=== PATIENT | male | born 1980 | race Hispanic/Latino ===

== ENCOUNTER 2020-02-27 16:09 | Emergency (ER) | payer OTHER, SELFPAY ==
--- OUTSIDE RECORDS SUMMARY | 2020-02-27 16:11 | XMS REPORT | Summary of Care ---
:1980 Author Organization [facility] Address [address] [place] [address] Care Team Providers Name Role Phone Mya Morgan MD Primary Care Provider Reason for Visit Reason Comments Exposure Encounter Details Date Type Department Care Team Description 01/28/2020 Laboratory Only [facility] Family Ernesto Madrigal, TAILER OFF [address] [place] [address] [address] Suspected Covid-19 Medicine - [facility], Adc Fam Pob I Virus Infection [address] [place] [address] (Primary D [place]) [place] [address] Allergies No Known Allergiesdocumented as of this encounter (statuses as of 02/01/2020) Medications Medication Sig Dispensed Refills Start Date End Date Status meloxicam 7.5 mg Take 1 tablet by 60 tablet 3 11/17/2019 Active tabletIndications: Acute mouth 2 (two) non intractable times daily as tension-type headache needed (headache). atorvastatin 10 mg Take 1 tablet by 90 tablet 1 11/17/2019 Active tabletIndications: Mixed mouth at hyperlipidemia bedtime. documented as of this encounter (statuses as of 02/01/2020) Active Problems Problem Noted Date Left thigh pain 04/02/2019 DDD (degenerative disc disease), lumbar 04/02/2019 Arthritis of lumbar spine 04/02/2019 Elevated hemoglobin 09/25/2018 Varicocele 11/30/2017 Depression 11/11/2017 Obesity (BMI 30-39.9) 11/21/2016 Hepatosplenomegaly 11/09/2016 Abnormal LFTs 11/09/2016 Anxiety disorder 11/06/2016 Hypercholesterolemia 11/06/2016 documented as of this encounter (statuses as of 02/01/2020) Resolved Problems Problem Noted Date Resolved Date Perineal pain in male 11/11/2017 04/02/2019 Scrotal pain 11/11/2017 04/02/2019 Left wrist pain 06/22/2017 04/02/2019 documented as of this encounter (statuses as of 02/01/2020) Social History Tobacco Use Types Packs/Day Years Used Date Never Smoker Smokeless Tobacco: Never Used Alcohol Use Drinks/Week oz/Week Comments Yes socially Sex Assigned at Date Recorded Not on file Job Start Date Occupation Industry Not on file Not on file Not on file Travel History Travel Start Travel End No recent travel history available. COVID-19 Exposure Response Date Recorded In the last month, have you been in contact with Yes 01/28/2020 7:57 AM CDT someone who was confirmed or suspected to have Coronavirus / COVID-19? documented as of this encounter Last Filed Vital Signs Not on filedocumented in this encounter Plan of Treatment Health Maintenance Due Date Last Done Comments PNEUMOCOCCAL 0-64 YEARS COMBINED 1984 SERIES (1 of 3 - PCV13) DTaP,Tdap,and Td Vaccines (1 - 1989 Tdap) Depression Screening 03/14/2020 03/14/2019 INFLUENZA VACCINE (#1) 2020 06/05/2016, 06/05/2016, 04/24/2015, Additional history exists documented as of this encounter Results Not on filedocumented in this encounter Visit Diagnoses Diagnosis Suspected Covid-19 Virus Infection - [facility] documented in this encounter Insurance Payer Benefit Plan / Subscriber ID Effective Dates Phone Addre ss Type Group [facility] [id number] [facility] PPO t S documented as of this encounter
--- OUTSIDE RECORDS SUMMARY | 2020-02-27 16:11 | XMS REPORT | Summary of Care ---
:1980 Author Organization [facility] Address [address] [place] [address] Care Team Providers Name Role Phone Mya Morgan MD Primary Care Provider Reason for Visit Reason Comments Results Encounter Details Date Type Department Care Team Description 02/02/2020 Telephone [facility] Family Medicine Jennifer Ortiz FNP Results - [address] [place] [address] [place] [phone] Allergies No Known Allergiesdocumented as of this encounter (statuses as of 02/02/2020) Medications Medication Sig Dispensed Refills Start Date End Date Status meloxicam 7.5 mg Take 1 tablet by 60 tablet 3 11/17/2019 Active tabletIndications: Acute mouth 2 (two) non intractable times daily as tension-type headache needed (headache). atorvastatin 10 mg Take 1 tablet by 90 tablet 1 11/17/2019 Active tabletIndications: Mixed mouth at hyperlipidemia bedtime. documented as of this encounter (statuses as of 02/02/2020) Active Problems Problem Noted Date Left thigh pain 04/02/2019 DDD (degenerative disc disease), lumbar 04/02/2019 Arthritis of lumbar spine 04/02/2019 Elevated hemoglobin 09/25/2018 Varicocele 11/30/2017 Depression 11/11/2017 Obesity (BMI 30-39.9) 11/21/2016 Hepatosplenomegaly 11/09/2016 Abnormal LFTs 11/09/2016 Anxiety disorder 11/06/2016 Hypercholesterolemia 11/06/2016 documented as of this encounter (statuses as of 02/02/2020) Resolved Problems Problem Noted Date Resolved Date Perineal pain in male 11/11/2017 04/02/2019 Scrotal pain 11/11/2017 04/02/2019 Left wrist pain 06/22/2017 04/02/2019 documented as of this encounter (statuses as of 02/02/2020) Social History Tobacco Use Types Packs/Day Years [...] Results Not on filedocumented in this encounter Additional Health Concerns Infection Onset Date Last Indicated Resolved Time COVID-19 Rule Out 02/01/2020 02/01/2020 02/02/2020 1: 01 PM CDT documented as of this encounter Insurance Payer Benefit Plan / Subscriber ID Effective Dates Phone Addre ss Type Group [facility] [id number] 2016-Pres HMO/ PPO/[facility] PPO t S documented as of this encounter
--- OUTSIDE RECORDS SUMMARY | 2020-02-27 16:11 | XMS REPORT | Continuity of Care Document ---
:1980 Author Organization [facility] t Address [address] [place] [address] Care Team Providers Name Role Phone Jennifer Phillips Attending Clinician Lab, [facility] Fam Pob I Attending Clinician Unavailable Problems This patient has no known problems. Allergies, Adverse Reactions, Alerts This patient has no known allergies or adverse reactions. Medications This patient has no known medications. Procedures This patient has no known procedures. Encounters Start End Encounter Admission Attending Care Care Encounter Source Date/Time Date/Time Type Type Clinicians Facility Department ID 2020-02-02 2020-02-02 Telephone Rohan NEADILSON [id number] 00:00:00 00:00:00 [facility] [id number] [place] [id number] Professio [phone] nal [address] 2020-02-01 2020-02-01 Laboratory Lab, [facility] [id number] 12:53:49 15:29:04 Only Fam Pob I Health [id number] [place] [id number] Professio [phone] nal [phone] Results This patient has no known results.
--- OUTSIDE RECORDS SUMMARY | 2020-02-27 16:11 | XMS REPORT | Summary of Care ---
:1980 Author Organization [facility] Address [address] [place] [address] Care Team Providers Name Role Phone Mya Morgan MD Primary Care Provider Encounter Details Date Type Department Care Team Description 02/01/2020 Letter (Out) [facility] Family Medicine - Lab, Pcp Co adán [place] [address] [place] [address] [place] [address] Allergies No Known Allergiesdocumented as of this [...] filedocumented in this encounter Plan of Treatment Date Type Specialty Care Team Description 02/01/2020 Laboratory Only Family Medicine Noel Pruitt, BARREL AND RECEIVER ALIGNER [address] [place] [address] [phone] Arrived Lab, Adc Fam Pob I Health Maintenance Due Date Last Done Comments PNEUMOCOCCAL 0-64 YEARS COMBINED 1984 SERIES (1 of 3 - PCV13) DTaP,Tdap,and Td Vaccines (1 - 1989 Tdap) Depression Screening 03/14/2020 03/14/2019 INFLUENZA VACCINE (#1) 2020 06/05/2016, 06/05/2016, 04/24/2015, Additional history exists documented as of this encounter Results Not on filedocumented in this encounter Insurance Payer Benefit Plan / Subscriber ID Effective Dates Phone Addre ss Type Group [facility] [id number] 2016-Presen HMO/ PPO/PO [facility]ALTH[employer]ARE HEALTHCARE PPO t S documented as of this encounter
--- OUTSIDE RECORDS SUMMARY | 2020-02-27 16:11 | XMS REPORT | Summary of Care ---
:1980 Author Organization [facility] Address [address] [place] [address] Care Team Providers Name Role Phone Mya Morgan MD Primary Care Provider Reason for Visit Reason Comments Exposure Encounter Details Date Type Department Care Team Description 02/01/2020 Laboratory Only [facility] Family AcyoelSherley, FURNACE KEEPER [address] [place] [address] [phone] Suspected Covid-19 Medicine - [facility], Adc Fam Pob I Virus Infection [address] [place] [address] (Primary D x) [place] [address] Allergies No Known Allergiesdocumented as [...] filedocumented in this encounter Plan of Treatment Name Type Priority Associated Diagnoses Order S chedule COVID-19 (PCR MOLECULAR LAB Routine Suspected Covid-1 9 Virus Expected: 02/01/2020, TESTING) Infection Expires: 2020 Health Maintenance Due Date Last Done Comments PNEUMOCOCCAL 0-64 YEARS COMBINED 1984 SERIES (1 of 3 - PCV13) DTaP,Tdap,and Td Vaccines (1 - 1989 Tdap) Depression Screening 03/14/2020 03/14/2019 INFLUENZA VACCINE (#1) 2020 06/05/2016, 06/05/2016, 04/24/2015, Additional history exists documented as of this encounter Results Not on filedocumented in this encounter Visit Diagnoses Diagnosis Suspected Covid-19 Virus Infection - [facility] documented in this encounter Insurance Payer Benefit Plan / Subscriber ID Effective Dates Phone Addre ss Type Group [facility] [id number] 2016-Pres HMO/ PPO/[facility] PPO t S documented as of this encounter
--- OUTSIDE RECORDS SUMMARY | 2020-02-27 16:11 | XMS REPORT | Summary of Care ---
:1980 Author Organization [facility] Address [address] [place] [address] Care Team Providers Name Role Phone Mya Morgan MD Primary Care Provider Reason for Visit Reason Comments Exposure Encounter Details Date Type Department Care Team Description 02/01/2020 Laboratory Only [facility] Family AcyoelSherley, FAMILY COURT COUNSELLOR [address] [place] [address] [phone] Suspected Covid-19 Medicine - [place] [facility], Adc Fam Pob I Virus Infection [address] [place] [address] (Primary D x) [place] [address] Allergies No Known Allergiesdocumented as [...] of Treatment Name Type Priority Associated Diagnoses Date/Ti me COVID-19 (PCR MOLECULAR LAB Routine Suspected Covid-1 9 Virus 02/01/2020 1:18 PM CDT TESTING) Infection Name Type Priority Associated Diagnoses Order S [...] - Yohana al documented in this encounter Additional Health Concerns Infection Onset Date Last Indicated Resolved Time COVID-19 Rule Out 02/01/2020 02/01/2020 documented as of this encounter Insurance Payer Benefit Plan / Subscriber ID Effective Dates Phone Addre ss Type Group [facility] [id number] 2016-[employer] HMO/ PPO/[facility] PPO t S documented as of this encounter
--- OUTSIDE RECORDS SUMMARY | 2020-02-27 16:11 | XMS REPORT | Summary of Care ---
:1980 Author Organization [facility] Address [address] [place] [address] Care Team Providers Name Role Phone Mya Morgan MD Primary Care Provider Encounter Details Date Type Department Care Team Description 02/01/2020 Letter (Out) [facility] Family Medicine - Lab, Pcp Co adán [place]anger [address] [place] [address] [place] [address] Allergies No Known Allergiesdocumented as of [...] 02/01/2020 Laboratory Only Family Medicine Noel Pruitt, SPRINKLING SYSTEM IRRIGATOR [address] [place] [address] [phone] Arrived Lab, Adc Fam Pob I Health [...] Effective Dates Phone Addre ss Type Group [facility] [id number] 2016-Presen HMO/ PPO/PO HEALTHCARE HEALTHCARE PPO t S documented as of this encounter
--- OUTSIDE RECORDS SUMMARY | 2020-02-27 16:11 | XMS REPORT | Summary of Care ---
:1980 Author Organization [facility] Address [address] [place] [address] Care Team Providers Name Role Phone Mya Morgan MD Primary Care Provider Reason for Visit Reason Comments Exposure Encounter Details Date Type Department Care Team Description 02/01/2020 Laboratory Only [facility] Family AcyoelSherley, DETECTIVE [address] [place] [address] [phone] Suspected Covid-19 Medicine - [place] [facility], Adc Fam Pob I Virus Infection [address] [place] [address] (Primary D x) [place] [address] Allergies No Known Allergiesdocumented as [...] Effective Dates Phone Addre ss Type Group [facility] [id number] 2016-[employer] HMO/ PPO/[facility] PPO t S documented as of this encounter
--- OUTSIDE RECORDS SUMMARY | 2020-02-27 16:11 | XMS REPORT | Summary of Care ---
:1980 Author Organization [facility] Address [address] [place] [address] Care Team Providers Name Role Phone Mya Morgan MD Primary Care Provider Reason for Visit Reason Comments Exposure Encounter Details Date Type Department Care Team Description 01/28/2020 Laboratory Only [facility] Family Ernesto Madrigal, PART MAKER [address] [place] [address] [address] Suspected Covid-19 Medicine - [place] [facility], Adc Fam Pob I Virus Infection [address] [place] [address] (Primary D x) [place] [address] Allergies No Known Allergiesdocumented as of this encounter (statuses as of 01/28/2020) Medications Medication Sig Dispensed Refills Start Date End Date Status meloxicam 7.5 mg Take 1 tablet by 60 tablet 3 11/17/2019 Active tabletIndications: Acute mouth 2 (two) non intractable times daily as tension-type headache needed (headache). atorvastatin 10 mg Take 1 tablet by 90 tablet 1 11/17/2019 Active tabletIndications: Mixed mouth at hyperlipidemia bedtime. documented as of this encounter (statuses as of 01/28/2020) Active Problems Problem Noted Date Left thigh pain 04/02/2019 DDD (degenerative disc disease), lumbar 04/02/2019 Arthritis of lumbar spine 04/02/2019 Elevated hemoglobin 09/25/2018 Varicocele 11/30/2017 Depression 11/11/2017 Obesity (BMI 30-39.9) 11/21/2016 Hepatosplenomegaly 11/09/2016 Abnormal LFTs 11/09/2016 Anxiety disorder 11/06/2016 Hypercholesterolemia 11/06/2016 documented as of this encounter (statuses as of 01/28/2020) Resolved Problems Problem Noted Date Resolved Date Perineal pain in male 11/11/2017 04/02/2019 Scrotal pain 11/11/2017 04/02/2019 Left wrist pain 06/22/2017 04/02/2019 documented as of this encounter (statuses as of 01/28/2020) Social History Tobacco Use Types Packs/Day Years [...] MOLECULAR LAB Routine Suspected Covid-1 9 Virus Ordered: 01/28/2020 TESTING) Infection Health Maintenance Due Date Last Done Comments PNEUMOCOCCAL 0-64 YEARS COMBINED 1984 SERIES (1 of 3 - PCV13) DTaP,Tdap,and Td Vaccines (1 - 1989 Tdap) Depression Screening 03/14/2020 03/14/2019 INFLUENZA VACCINE (#1) 2020 06/05/2016, 06/05/2016, 04/24/2015, Additional history exists documented as of this encounter Results Not on filedocumented in this encounter Visit Diagnoses Diagnosis Suspected Covid-19 Virus Infection - [facility] documented in this encounter Insurance Payer Benefit Plan / Subscriber ID Effective Dates Phone Addre ss Type Group [facility] [id number] 2016-[employer] HMO/ PPO/ HEALTHCARE HEALTHCARE PPO t S documented as of this encounter
[2020-02-27] MEDS ORDERED: TETANUS & DIPHTHERIA TOX,ADULT 0.5 ML VIAL ONE (16:48)
--- NOTE | 2020-02-27 17:37 | ER ---
Nurse's Notes [facility] Name: Sumit Roberson Age: 39 yrs Sex: Male : 1980 Arrival Date: 02/27/2020 Time: 16:11 Bed 14 Private MD: Diagnosis: Laceration without foreign body of scalp Presentation: 02/26 16:12 Chief complaint: EMS states: "the pt was at work and was climbing back into his van jd3 when he hit the top of his head on the latch at the top of the vehicle. bleeding controlled with pressure. denies LOC.". Coronavirus screen: At this time, the client does not indicate any symptoms associated with coronavirus-19. Ebola Screen: Patient negative for fever greater than or equal to 101.5 degrees Fahrenheit, and additional compatible Ebola Virus Disease symptoms. Initial Sepsis Screen: Does the patient meet any 2 criteria? No. Patient's initial sepsis screen is negative. Does the patient have a suspected source of infection? No. Patient's initial sepsis screen is negative. Risk Assessment: Do you want to hurt yourself or someone else? Patient reports no desire to harm self or others. Onset of symptoms was February 27, 2020. 16:12 Method Of Arrival: EMS: [facility] jd3 16:12 Acuity: ISABEL 3 jd3 Historical: - Allergies: 16:14 No Known Allergies; jd3 - Home Meds: 16:14 atorvastatin oral oral [Active]; jd3 - PMHx: 16:14 High Cholesterol; jd3 - PSHx: 16:14 Carpal Tunnel Repair; jd3 - Immunization history:: Adult Immunizations up to date, Last tetanus immunization: unknown. - Social history:: Smoking status: Patient denies any tobacco usage or history of. Screenin:17 Abuse screen: Denies threats or abuse. Nutritional screening: No deficits noted. jd3 Tuberculosis screening: No symptoms or risk factors identified. Fall Risk Ambulatory Aid- None/Bed Rest/Nurse Assist (0 pts). Gait- Normal/Bed Rest/Wheelchair (0 pts) Mental Status- Oriented to own ability (0 pts). Total Sandhu Fall Scale indicates No Risk (0-24 pts). Assessment: 16:15 General: Appears in no apparent distress. uncomfortable, Behavior is calm, cooperative, jd3 appropriate for age. Pain: Complains of pain in head Quality of pain is described as burning, tender. Neuro: Level of Consciousness is awake, alert, obeys commands, Oriented to person, place, time, situation, Denies dizziness. Cardiovascular: Denies chest pain, Capillary refill < 3 seconds Patient's skin is warm and dry. Respiratory: Airway is patent Respiratory effort is even, unlabored, Respiratory pattern is regular, symmetrical, Denies cough, shortness of breath. GI: No signs and/or symptoms were reported involving the gastrointestinal system. Patient currently denies constipation, diarrhea, nausea, vomiting. : No signs and/or symptoms were reported regarding the genitourinary system. EENT: No signs and/or symptoms were reported regarding the EENT system. Derm: Skin is intact, Skin is dry, Skin is normal, Skin temperature is warm. Musculoskeletal: Circulation, motion, and sensation intact. Range of motion: intact in all extremities. Injury Description: Laceration sustained to top of head is not bleeding. 17:55 Reassessment: Patient appears in no apparent distress at this time. Patient and/or jd3 family updated on plan of care and expected duration. Pain level reassessed. Patient is alert, oriented x 3, equal unlabored respirations, skin warm/dry/pink. Patient states feeling better. Vital Signs: 16:14 BP 146 / 85; Pulse 97; Resp 16 S; Temp 98.8(O); Pulse Ox 99% on R/A; Weight 124.74 kg jd3 (R); Height 5 ft. 9 in. (175.26 cm) (R); Pain 4/10; 17:55 BP 141 / 88; Pulse 88; Resp 16 S; Pulse Ox 100% on R/A; jd3 16:14 Body Mass Index 40.61 (124.74 kg, 175.26 cm) [facility] ED Course: 16:11 Patient arrived in ED. jd3 16:13 Fabio Anderson NP is PHCP. pm1 16:13 Cm Roach MD is Attending Physician. pm1 16:13 Triage completed. jd3 16:15 Arm band placed on. jd3 16:17 Patient has correct armband on for positive identification. Bed in low position. Call [facility] light in reach. Side rails up X 1. Pulse ox on. NIBP on. 16:30 Wound care: to laceration located on face and scalp and head was cleaned with jp3 Hibiclens, irrigated with normal saline, Patient tolerated well. 16:34 Wayne Clark RN is Primary Nurse. jd3 17:55 No provider procedures requiring assistance completed. Patient did not have IV access jd3 during this emergency room visit. Administered Medications: 16:41 Drug: Tetanus-Diphtheria Toxoid Adult 0.5 ml {Head Char Filter Tank Tender: [employer]. Exp: jd3 09/07/2022. Lot #: [id number]. } Route: IM; Site: right deltoid; 17:40 Follow up: Response: No adverse reaction jd3 17:47 Drug: [place] 10 mg-325 mg 1 tabs Route: PO; jd3 17:56 Follow up: Response: No adverse reaction; RASS: Alert and Calm (0) jd3 Outcome: 17:37 Discharge ordered by MD. pm1 17:55 Discharged to home ambulatory, with family. jd3 17:55 Condition: stable 17:55 Discharge instructions given to patient, Instructed on discharge instructions, follow up and referral plans. Demonstrated understanding of instructions, follow-up care. 17:56 Patient left the ED. jd3 Signatures: Fabio Anderson NP [employer] pm1 Wayne Clark RN RN jd3 Lance Almazan jp3
--- NOTE | 2020-02-27 17:37 | EDPHYS ---
Physician Documentation [facility] Name: Sumit Roberson Age: 39 yrs Sex: Male : 1980 Arrival Date: 02/27/2020 Time: 16:11 Bed 14 Private MD: ED Physician Cm Roach HPI: 02/26 17:13 This 39 yrs old Male presents to ER via EMS with complaints of Laceration to pm1 scalp. 17:13 The patient has a laceration related to: Walking into his van and cut his head against pm1 the upper bolt on the rear doors occurred at work, and there are no complicating factors. The laceration(s) is(are) located on the scalp. Onset: The symptoms/episode began/occurred just prior to arrival. Associated signs and symptoms: Pertinent negatives: deformity, dizziness, suspected foreign body. The patient has not experienced similar symptoms in the past. The patient has not recently seen a physician. No headache, neck pain, LOC. Historical: - Allergies: 16:14 No Known Allergies; jd3 - Home Meds: 16:14 atorvastatin oral oral [Active]; jd3 - PMHx: 16:14 High Cholesterol; jd3 - PSHx: 16:14 Carpal Tunnel Repair; jd3 - Immunization history:: Adult Immunizations up to date, Last tetanus immunization: unknown. - Social history:: Smoking status: Patient denies any tobacco usage or history of. ROS: 17:13 Constitutional: Negative for fever, chills, and weight loss. pm1 17:13 Neck: Negative for injury, pain, and swelling. 17:13 Neuro: Negative for headache, weakness, numbness, tingling, and seizure. 17:13 Skin: Positive for laceration(s), of the scalp. 17:13 All other systems are negative. Exam: 17:13 Constitutional: This is a well developed, well nourished patient who is awake, alert, pm1 and in no acute distress. 17:13 Skin: Warm, dry with normal turgor. Normal color with no rashes, no lesions, and no evidence of cellulitis. MS/ Extremity: Pulses equal, no cyanosis. Neurovascular intact. Full, normal range of motion. 17:13 Head/face: Noted is no obvious of injury or deformity except a laceration(s), that is linear, 2 cm(s), of the top of head and scalp. 17:13 Cardiovascular: Exam negative for acute changes, Rate: normal, Rhythm: regular, Pulses: no pulse deficits are appreciated. 17:13 Respiratory: Exam negative for acute changes, respiratory distress, shortness of breath. 17:13 Neuro: Exam negative for acute changes, Orientation: is normal, Motor: is normal, moves all fours. Vital Signs: 16:14 BP 146 / 85; Pulse 97; Resp 16 S; Temp 98.8(O); Pulse Ox 99% on R/A; Weight 124.74 kg jd3 (R); Height 5 ft. 9 in. (175.26 cm) (R); Pain 4/10; 17:55 BP 141 / 88; Pulse 88; Resp 16 S; Pulse Ox 100% on R/A; jd3 16:14 Body Mass Index 40.61 (124.74 kg, 175.26 cm) jd3 Laceration: 17:34 Wound Repair of 2cm ( 0.8in ) subcutaneous laceration to scalp. Linear shaped.. Distal pm1 neuro/vascular/tendon intact. Skin closed with 4 1-0 Scotrun using staple gun. Patient tolerated well. MDM: 16:29 Patient medically screened. pm1 17:16 Data reviewed: vital signs. Data interpreted: Pulse oximetry: on room air is 99 %. pm1 Interpretation: normal. 17:36 Counseling: I had a detailed discussion with the patient and/or guardian regarding: the pm1 historical points, exam findings, and any diagnostic results supporting the discharge/admit diagnosis, the need for outpatient follow up, staple removal in 10-14 days, to return to the emergency department if symptoms worsen or persist or if there are any questions or concerns that arise at home. 02/26 16:29 Order name: Wound Care; Complete Time: 16:34 pm1 Administered Medications: 16:41 Drug: Tetanus-Diphtheria Toxoid Adult 0.5 ml {Neonatal Nurse: [employer]. Exp: jd3 09/07/2022. Lot #: [id number]. } Route: IM; Site: right deltoid; 17:40 Follow up: Response: No adverse reaction jd3 17:47 Drug: [place] 10 mg-325 mg 1 tabs Route: PO; jd3 17:56 Follow up: Response: No adverse reaction; RASS: Alert and Calm (0) jd3 Disposition: 19:02 Co-signature as Attending Physician, Cm Roach MD Signing chart for administrative ps1 purposes. Did not see or evaluate patient. Not an endorsement of care. . Disposition: 02/27/20 17:37 Discharged to Home. Impression: Laceration without foreign body of scalp. - Condition is Stable. - Discharge Instructions: Head Injury, Adult, Stitches, Scotrun, or Adhesive Wound Closure. - Medication Reconciliation Form, Thank You Letter, Antibiotic Education, Prescription Opioid Use form. - Work release form (02/27/20 18:12). ss - Follow up: Emergency Department; When: As needed; Reason: Worsening of condition. Follow up: Private Physician; When: 10 - 14 days; Reason: Wound Recheck, Recheck today's complaints, Continuance of care, Staple/Suture removal, Re-evaluation by your physician. - Problem is new. - Symptoms have improved. Signatures: Fabio Anderson NP [employer]AM [employer]OTHES PRESS OPERATOR pm1 Wayne Clark RN RN jd3 Cm Roach MD MD ps1 Nina Sigala RN ss Corrections: (The following items were deleted from the chart) 17:56 17:37 02/27/2020 17:37 Discharged to Home. Impression: Laceration without foreign body jd3 of scalp. Condition is Stable. Forms are Medication Reconciliation Form, Thank You Letter, Antibiotic Education, Prescription Opioid Use. Follow up: Emergency Department; When: As needed; Reason: Worsening of condition. Follow up: Private Physician; When: 10 - 14 days; Reason: Wound Recheck, Recheck today's complaints, Continuance of care, Staple/Suture removal, Re-evaluation by your physician. Problem is new. Symptoms have improved. pm1
[2020-02-27] MEDS ORDERED: HYDROCODONE/APAP 10/325 TAB ONE (17:55)
[2020-02-27 18:01] VITALS: TEMP 98.8
[2020-02-27 18:03] VITALS: BP 141/88; O2SAT 100
== END 2020-02-27 17:56 | disposition home or self-care (01) ==
LOC: ER 16:09
PROC: 0JQ00ZZ Repair Scalp Subcutaneous Tissue and Fascia, Open Approach (ICD-10-PCS; principal; 2020-02-27)
DX: S01.01XA Laceration without foreign body of scalp, initial encounter (principal); W26.8XXA Contact with other sharp object(s), not elsewhere classified, initial encounter; Y93.01 Activity, walking, marching and hiking; Y92.9 Unspecified place or not applicable; Z23 Encounter for immunization; E78.00 Pure hypercholesterolemia, unspecified
CPT/HCPCS: 90471; 90714; 99284

== ENCOUNTER 2021-05-27 02:26 | Emergency (ER) | payer OTHER, SELFPAY ==
[2021-05-27] MEDS ORDERED: DIPHENHYDRAMINE 50 MG/ML VIAL ONE (02:47)
[2021-05-27] MEDS ORDERED: NA CHLORIDE 0.9% 500 ML ONE (02:47)
[2021-05-27] MEDS ORDERED: FAMOTIDINE 20 MG/2 ML VIAL IV ONE (02:47)
[2021-05-27] MEDS ORDERED: METHYLPREDNISOLONE 125 MG INJ ONE (02:47)
--- NOTE | 2021-05-27 05:45 | ER ---
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 Coronavirus screen: At this time, the client does not indicate any symptoms associated with coronavirus-19. Ebola Screen: No symptoms or risks identified at this time. Onset: The symptoms/episode began/occurred acutely. Anaphylaxis evaluation, angioedema. Initial Sepsis Screen: Does the patient meet any 2 criteria? No. Patient's initial sepsis screen is negative. Does the patient have a suspected source of infection? No. Patient's initial sepsis screen is negative. Risk Assessment: Do you want to hurt yourself or someone else? Patient reports no desire to harm self or others. Onset of symptoms was April 2021. 02:39 Method Of Arrival: Ambulatory bb 02:39 Acuity: ISABEL 2 bb 04:25 Note Pt to be observed in ER. Spouse at bedside. Pt states throat "not as scratchy". df1 Denies SOB. LS CTA. Resp even and unlabored. Triage Assessment: 03:00 General: Appears in no apparent distress. mr2 Historical: - Allergies: 02:41 No Known Allergies; bb - Home Meds: 02:41 atorvastatin Oral [Active]; hydroxyzine HCl 50 mg Oral tab [Active]; Benadryl Oral bb [Active]; OTC vitamins [Active]; Fish Oil oral [Active]; CoQ10 [Active]; Liver support [Active]; - PMHx: 02:41 High Cholesterol; bb - Immunization history:: Adult Immunizations up to date, Client reports receiving the 2nd dose of the Covid vaccine. - Social history:: Smoking status: Patient denies any tobacco usage or history of. Patient uses alcohol, occasionally. Patient/guardian denies using street drugs. - Family history:: not pertinent. - Hospitalizations: : No recent hospitalization is reported. Screenin:03 Abuse screen: Denies threats or abuse. Nutritional screening: No deficits noted. df1 Tuberculosis screening: No symptoms or risk factors identified. Fall Risk None identified. Assessment: 03:01 General: Appears in no apparent distress. comfortable, Behavior is calm, cooperative. df1 Pain: Denies pain. Neuro: No deficits noted. Cardiovascular: No deficits noted. Respiratory: Airway is patent Trachea midline Respiratory effort is even, unlabored, Respiratory pattern is regular, symmetrical, Breath sounds are clear bilaterally. GI: No deficits noted. : No deficits noted. EENT: swelling to upper lip. Reports difficulty swallowing. Derm: No deficits noted. Musculoskeletal: No deficits noted. 03:51 Reassessment: Patient states feeling better. " It is getting easier for me to swallow tw5 now. I am feeling a lot better'. Vital Signs: 02:39 BP 139 / 91; Pulse 79; Resp 18 S; Temp 97.8(O); Pulse Ox 95% on R/A; Weight 117.93 kg bb (R); Height 5 ft. 9 in. (175.26 cm) (R); Pain 0/10; 03:01 BP 139 / 91; Pulse 94; Resp 18; Pulse Ox 97% on R/A; Pain 0/10; df1 03:51 BP 123 / 78; Pulse 83; Resp 18; Pulse Ox 98% on R/A; Pain 0/10; tw5 04:24 BP 123 / 78; Pulse 85; Resp 18; Pulse Ox 96% on R/A; Pain 0/10; df1 05:49 Pulse 79; Resp 18; Pulse Ox 94% on R/A; df1 02:39 Body Mass Index 38.39 (117.93 kg, 175.26 cm) bb ED Course: 02:29 Patient arrived in ED. ag3 02:29 Juan Pablo Cardenas MD is Attending Physician. rn 02:41 Triage completed. bb 02:41 Arm band placed on Patient placed in an exam room, on a stretcher, on pulse oximetry. bb 03:00 No provider procedures requiring assistance completed. Inserted saline lock: 20 gauge df1 in right antecubital area, using aseptic technique. 03:03 Patient has correct armband on for positive identification. pvc monitor on. Pulse df1 ox on. NIBP on. 03:51 April Longoria is Primary Nurse. tw5 03:51 Door closed. Noise minimized. Lights dimmed. Moved to private room. Warm blanket given. tw5 Verbal reassurance given. 05:50 IV discontinued, intact, bleeding controlled, No redness/swelling at site. Pressure df1 dressing applied. Administered Medications: 03:00 Drug: Benadryl (diphenhydrAMINE) 50 mg Route: IVP; Site: right antecubital; df1 03:52 Follow up: Response: No adverse reaction tw5 03:00 Drug: NS 0.9% 500 ml Route: IV; Rate: bolus; Site: right antecubital; df1 03:52 Follow up: Response: No adverse reaction; IV Status: Completed infusion tw5 03:01 Drug: SOLU-Medrol (methylPrednisoLONE) 125 mg Route: IVP; Site: right antecubital; df1 03:52 Follow up: Response: No adverse reaction tw5 03:01 Drug: Pepcid (famotidine) 20 mg Route: IVP; Site: right antecubital; df1 03:52 Follow up: Response: No adverse reaction tw5 Outcome: 05:44 Discharge ordered by . rn 05:50 Discharged to home ambulatory. df1 05:50 Condition: stable 05:50 Discharge instructions given to patient, significant other, Instructed on discharge instructions, follow up and referral plans. medication usage, Demonstrated understanding of instructions, follow-up care, medications, Prescriptions given X 2. 05:55 Patient left the ED. mr2 Signatures: Elizabeth Castle RN RN bb Nieto, Roman, MD MD rn Gomez, Alice 3 Gil Anaya RN RN mr2 Claudia Lam df1 April Longoria tw5
--- NOTE | 2021-05-27 05:45 | EDPHYS ---
Physician Documentation [facility] Name: Sumit Roberson Age: 40 yrs Sex: Male : 1980 Arrival Date: 05/27/2021 Time: 02:29 Bed 4 Private MD: ED Physician Juan Pablo Cardenas HPI: 05/27 02:38 This 40 yrs old Male presents to ER via Unassigned with complaints of Allergic rn Reaction. 02:38 The patient presents with itching, localized swelling, rash, swelling of the lips. rn Onset: The symptoms/episode began/occurred just prior to arrival. Associated signs and symptoms: Pertinent positives: hives, swelling, Pertinent negatives: fever, shortness of breath. Possible causes: The patient has no known obvious cause for the symptoms. At home the patient or guardian has treated the symptoms with Benadryl. Severity of symptoms: At their worst the symptoms were moderate in the emergency department the symptoms are unchanged. The patient has experienced similar episodes in the past. The patient has been recently seen by a physician:. Patient reports swelling to upper lip, hives that began tonight. States this is the third visit in the last 2 weeks during ER. 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 States previous 2 visits did not reveal any sort of trigger or etiology of his allergic reaction, but improved with steroids. Prior to these 2 weeks never had an allergic reaction. Does not take blood pressure medication. No other new medications or exposures that he knows of.. Historical: - Allergies: 02:41 No Known Allergies; bb - Home Meds: 02:41 atorvastatin Oral [Active]; hydroxyzine HCl 50 mg Oral tab [Active]; Benadryl Oral bb [Active]; OTC vitamins [Active]; Fish Oil oral [Active]; CoQ10 [Active]; Liver support [Active]; - PMHx: 02:41 High Cholesterol; bb - Immunization history:: Adult Immunizations up to date, Client reports receiving the 2nd dose of the Covid vaccine. - Social history:: Smoking status: Patient denies any tobacco usage or history of. Patient uses alcohol, occasionally. Patient/guardian denies using street drugs. - Family history:: not pertinent. - Hospitalizations: : No recent hospitalization is reported. ROS: 02:38 Constitutional: Negative for fever, chills, and weight loss, Eyes: Negative for injury, rn pain, redness, and discharge, ENT: Positive for swelling of upper lip Neck: Negative for injury, pain, and swelling, Cardiovascular: Negative for chest pain, palpitations, and edema, Respiratory: Negative for shortness of breath, cough, wheezing, and pleuritic chest pain, Abdomen/GI: Negative for abdominal pain, nausea, vomiting, diarrhea, and constipation, Back: Negative for injury and pain, : Negative for injury, bleeding, discharge, and swelling, MS/Extremity: Negative for injury and deformity, Skin: Positive for urticaria and itching Neuro: Negative for headache, weakness, numbness, tingling, and seizure. Exam: 02:38 Constitutional: This is a well developed, well nourished patient who is awake, alert, rn and in no acute distress. Ambulatory to room without difficulty or distress Head/Face: Normocephalic, atraumatic. Eyes: Periorbital areas with no swelling, redness, or edema. ENT: Mild swelling of upper lip, no stridor noted, no tongue swelling, tolerating secretions Cardiovascular: Regular rate and rhythm. No pulse deficits. Respiratory: Speaking full sentences, unlabored. No increased work of breathing, no retractions or nasal flaring. Skin: Warm, dry, urticaria present with excoriations diffusely MS/ Extremity: No cyanosis. Neuro: Awake and alert, GCS 15 Vital Signs: 02:39 BP 139 / 91; Pulse 79; Resp 18 S; Temp 97.8(O); Pulse Ox 95% on R/A; Weight 117.93 kg bb (R); Height 5 ft. 9 in. (175.26 cm) (R); Pain 0/10; 03:01 BP 139 / 91; Pulse 94; Resp 18; Pulse Ox 97% on R/A; Pain 0/10; df1 03:51 BP 123 / 78; Pulse 83; Resp 18; Pulse Ox 98% on R/A; Pain 0/10; tw5 04:24 BP 123 / 78; Pulse 85; Resp 18; Pulse Ox 96% on R/A; Pain 0/10; df1 05:49 Pulse 79; Resp 18; Pulse Ox 94% on R/A; df1 02:39 Body Mass Index 38.39 (117.93 kg, 175.26 cm) bb MDM: 02:29 Patient medically screened. rn 05:41 Differential diagnosis: anaphylaxis, angioedema, Hereditary Angioedema urticaria, acute rn allergic reaction. Data reviewed: vital signs, nurses notes, and as a result, I will discharge patient. Counseling: I had a detailed discussion with the patient and/or guardian regarding: the historical points, exam findings, and any diagnostic results supporting the discharge/admit diagnosis, the need for outpatient follow up, to return to the emergency department if symptoms worsen or persist or if there are any questions or concerns that arise at home. Response to treatment: the patient's symptoms have markedly improved after treatment, and as a result, I will discharge patient. Special discussion: I discussed with the patient/guardian in detail that at this point there is no indication for admission to the hospital. It is understood, however, that if the symptoms persist or worsen the patient needs to return immediately for re-evaluation. ED course: Patient feels much better, swelling of upper lip markedly improved, no trouble breathing or swallowing. Is sleeping comfortably. Will DC home with steroids and EpiPen as he has not been prescribed an EpiPen despite now 3 episodes. Is going to contact geothermal powerplant mechanic helper today and see what they want to do. Return precautions given and understood.. 05/27 02:37 Order name: IV Start; Complete Time: 03:01 rn Administered Medications: 03:00 Drug: Benadryl (diphenhydrAMINE) 50 mg Route: IVP; Site: right antecubital; df1 03:52 Follow up: Response: No adverse reaction tw5 03:00 Drug: NS 0.9% 500 ml Route: IV; Rate: bolus; Site: right antecubital; df1 03:52 Follow up: Response: No adverse reaction; IV Status: Completed infusion tw5 03:01 Drug: SOLU-Medrol (methylPrednisoLONE) 125 mg Route: IVP; Site: right antecubital; df1 03:52 Follow up: Response: No adverse reaction tw5 03:01 Drug: Pepcid (famotidine) 20 mg Route: IVP; Site: right antecubital; df1 03:52 Follow up: Response: No adverse reaction tw5 Disposition Summary: 05/27/21 05:44 Discharge Ordered Location: Home rn Problem: new rn Symptoms: have improved rn Condition: Stable rn Diagnosis - Urticaria, unspecified rn - Angioneurotic edema, initial encounter rn Followup: rn - With: Private Physician - When: As needed - Reason: Recheck today's complaints, Re-evaluation by your physician Discharge Instructions: - Discharge Summary Sheet rn - Hives rn - Angioedema rn Forms: - Medication Reconciliation Form rn - Thank You Letter rn - Antibiotic technology risk intern - Prescription Opioid Use rn Prescriptions: - epinephrine 0.3 mg/0.3 mL Injection auto-injector - inject 0.3 milliliter by INTRAMUSCULAR route one time As needed as needed for rn anaphylaxis; 1 packet; Refills: 0, Product Selection Permitted - Prednisone 20 mg Oral Tablet - take 3 tablets by ORAL route once daily for 5 days; 15 tablet; Refills: 0, rn Product Selection Permitted Signatures: Elizabeth Castle RN RN bb Nieto, Roman, MD MD rn Furlich, Dawn df1 April Longoria tw5
[2021-05-27 06:44] VITALS: TEMP 97.8
[2021-05-27 06:46] VITALS: BP 123/78
[2021-05-27 06:49] VITALS: O2SAT 94
--- OUTSIDE RECORDS SUMMARY | 2021-05-31 17:36 | XMS REPORT | Continuity of Care Document ---
:1980 Author Organization [facility] t Address [address] [place] [address] Care Team Providers Name Role Phone Valeria Solomon Primary Care Physician Alexander PATEL Attending Clinician Unavailable Vtc-Lab Attending Clinician Unavailable Alexander Patel MD Attending Clinician Rohan UNDERWRITING DIRECTOR Attending Clinician Bull Soloomn Attending Clinician Bull MACIAS Attending Clinician Unavailable ROHAN Attending Clinician Unavailable Aron ALICEA Attending Clinician Unavailable Alexander RICHARDS Attending Clinician Unavailable Mendy GUPTA Attending Clinician Unavailable RENAE Attending Clinician Unavailable Bull KHOURY Attending Clinician Unavailable Bull PALMER Attending Clinician Unavailable JAIME Attending Clinician Unavailable Lab, Fam Pob I Attending Clinician Unavailable MADAI Attending Clinician Unavailable ROSELYN BURGESS Attending Clinician Unavailable Payers Payer Name Policy Type Policy Number Effective Date Expiration Date S [employer] [id number] 2016 PPO 00:00:00 Problems Condition Condition Condition Status Onset Resolution Last Treating Co mments Source Name Details Category Date Date Treatment Clinician Date Fatty Fatty Disease Active 2019-07 Univers liver liver 2-10 ity of 00:00: [address] Vitamin D Vitamin D Disease Active 2019-07 Uni vers deficiency deficiency 1-25 it y of 00:00: [address] Left thigh Left thigh Disease Active 2019- U nivers pain pain 9-15 ity of 00:00: [address] DDD DDD Disease Active 2019- Univers (degenerat (degenerat 9-15 it y of sarika disc sarika disc 00:00: [place] disease), disease), 00 Medi james lumbar lumbar Branch Arthritis Arthritis Disease Active Uni vers of lumbar of lumbar 9-15 ity of spine spine 00:00: [place] 00 Medical Branch Elevated Elevated Disease Active Unive rs hemoglobin hemoglobin 3-10 it y of 00:00: [place] 00 Medical Branch Varicocele Varicocele Disease Active U nivers 5-15 ity of 00:00: [place] 00 Medical Branch Depression Depression Disease Active U nivers 4-26 ity of 00:00: [place] 00 Medical Branch Obesity Obesity Disease Active Univers (BMI (BMI 5-06 ity of 30-39.9) 30-39.9) 00:00: [place] 00 Medical Branch Hepatosple Hepatosple Disease Active U nivers nomegaly nomegaly 4-24 ity of 00:00: [place] [address] Medical [place] Abnormal Abnormal Disease Active Unive rs LFTs LFTs 4-24 ity of 00:00: [place] [address] Medical Branch Anxiety Anxiety Disease Active Univers disorder disorder 4-21 ity of 00:00: [place] [address] Medical Branch Hyperchole Hyperchole Disease Active U nivers sterolemia sterolemia 4-21 it y of 00:00: [address] Allergies, Adverse Reactions, Alerts Allergy Allergy Status Severity Reaction(s) Onset Inactive Treating Comm ents Source Name Type Date Date Clinician NO KNOWN Drug Active Univers ALLERGIE Class ity of S [facility] Social History Social Habit Start Date Stop Date Quantity Comments Source History SDOH University o f Alcohol Frequency [place] M ed[facility] Branch History SDOH University o f Alcohol Std [place] [facility] Drinks Branch History SDPA University o f Alcohol Binge [place] [facility] al Branch Exposure to Not sure University of SARS-CoV-2 [facility] (event) Branch Alcohol intake 2021-05-15 2021-05-15 Current drinker Unive rsity of 00:00:00 00:00:00 of alcohol [place] [facility] (finding) Branch Tobacco use and 2016-11-06 2016-11-06 Never used Universit y of exposure 00:00:00 00:00:00 [facility] Alcohol Comment 2016-11-06 2016-11-06 socially Universit y of 00:00:00 00:00:00 [facility] Sex [birth year] At [birth year] Universit y of 00:00:00 00:00:00 [facility] Smoking Status Start Date Stop Date Source Never smoker [facility] Medications Ordered Filled Start Stop Current Ordering Indication Dosage Frequency Signature Comments Components Source Medication Medication Date Date Medication? Clinician (SIG) Name Name fexofenadin 2020-07 Yes [id number] 360mg Take 2 Univers e 180 mg 1-09 tablets by ity o f tablet 00:00: mouth 2 [place] (two) Medical times Branch daily. famotidine 2020-07 Yes [id number] 20mg Take 1 U nivers 20 mg 1-09 tablet by ity of tablet 00:00: mouth 2 [place] (two) Medical times Branch daily. famotidine 2020-07 Yes [id number] 20mg Take 1 Univers 20 mg 0-27 tablet by ity of tablet 00:00: mouth 2 [place] (two) Medical times Branch daily. famotidine 2020-07 Yes [id number] 20mg Take 1 Univers 20 mg 0-27 tablet by ity of tablet 00:00: mouth 2 [place] (two) Medical times Branch daily. hydrOXYzine 2020-07- Yes [id number] 50mg Take 1 Univers 50 mg 0-25 11-09 tablet by ity of tablet 00:00: 05:59 mouth 3 [place] 00 :00 (three) Medical times Branch daily as needed for Itching for up to 14 days. hydrOXYzine 2020-07- Yes [id number] 50mg Take 1 Univers 50 mg 0-25 11-09 tablet by ity of tablet 00:00: 05:59 mouth 3 [place] 00 :00 (three) Medical times Branch daily as needed for Itching for up to 14 days. methylPREDN 2020-07- Yes [id number] Take by Univers ISolone 4 0-25 11- mouth ity of mg tablets 00:00: 04:59 SEE-INSTRU [place] 00 :00 CTIONS for Medical 6 days. Branch follow package directions naproxen Yes [id number] 500mg Take 1 Univers 500 mg 9-16 tablet by ity of tablet 00:00: mouth 2 [place] (two) Medical times Branch daily as needed for Pain (scale 4-6). Take with food. Use sparingly due to possible side effects. naproxen 0 Yes [id number] 500mg Take 1 Univers 500 mg 9-16 tablet by ity of tablet 00:00: mouth 2 [place] 00 (two) Medical times [place] daily as needed for Pain (scale 4-6). Take with food. Use sparingly due to possible side effects. naproxen 0 Yes [id number] 500mg Take 1 Univers 500 mg 9-16 tablet by ity of tablet 00:00: mouth 2 00 (two) Medical times [place] daily as needed for Pain (scale 4-6). Take with food. Use sparingly due to possible side effects. atorvastati Yes [id number] 20mg Take 1 Univers n 20 mg 5-26 tablet by ity of tablet 00:00: mouth at [place] 00 bedtime. [facility] Branch atorvastati Yes [id number] 20mg Take 1 Univers n 20 mg 5-26 tablet by ity of tablet 00:00: mouth at [place] [address] bedtime. [facility] Branch atorvastati Yes [id number] 20mg Take 1 Univers n 20 mg 5-26 tablet by ity of tablet 00:00: mouth at [place] [address] bedtime. [facility] Immunizations Ordered Filled Immunization Date Status Comments [facility] e Immunization Name Name SARS-COV-2 COVID-19 2020-10-26 Completed Unive rsity of PFIZER VACCINE 00:00:00 [facility] SARS-COV-2 COVID-19 2020-10-26 Completed Unive rsity of PFIZER VACCINE 00:00:00 [facility] SARS-COV-2 COVID-19 2020-10-26 Completed Unive rsity of PFIZER VACCINE 00:00:00 [facility] SARS-COV-2 COVID-19 2020-10-05 Completed Unive rsity of PFIZER VACCINE 00:00:00 [facility] SARS-COV-2 COVID-19 2020-10-05 Completed Unive rsity of PFIZER VACCINE 00:00:00 [facility] SARS-COV-2 COVID-19 2020-10-05 Completed Unive rsity of PFIZER VACCINE 00:00:00 [facility] Influenza Virus 2020-05-30 Completed Universit y of Vaccine Quad .5 mL 00:00:00 [facility] 6+ MO Branch Pneumococcal 2020-05-30 Completed University o f Polysaccharide, 00:00:00 [facility] ical PPSV23 (PNEUMOVAX) Branch Influenza Virus 2020-05-30 Completed Universit y of Vaccine Quad .5 mL 00:00:00 [facility] IM 6+ MO Branch Pneumococcal 2020-05-30 Completed University o f Polysaccharide, 00:00:00 [place] [facility] ical PPSV23 (PNEUMOVAX) Branch Influenza Virus 2020-05-30 Completed Universit y of Vaccine Quad .5 mL 00:00:00 [facility] 6+ MO Branch Pneumococcal 2020-05-30 Completed University o f Polysaccharide, 00:00:00 [facility] ical PPSV23 (PNEUMOVAX) Branch Td 2020-02-17 Completed University of 00:00:00 [facility] Td 2020-02-17 Completed University of 00:00:00 [facility] Td 2020-02-17 Completed University of 00:00:00 [facility] Influenza Virus 2016-06-05 Completed Universit y of Vaccine (3+ yrs) 00:00:00 [facility] Influenza Virus 2016-06-05 Completed Universit y of Vaccine 00:00:00 [facility] Influenza Virus 2016-06-05 Completed Universit y of Vaccine (3+ yrs) 00:00:00 [facility] Influenza Virus 2016-06-05 Completed Universit y of Vaccine 00:00:00 [facility] Influenza Virus 2016-06-05 Completed Universit y of Vaccine (3+ yrs) 00:00:00 [facility] Influenza Virus 2016-06-05 Completed Universit y of Vaccine 00:00:00 [facility] TDAP 2016-02-28 Completed University of 00:00:00 [facility] TDAP 2016-02-28 Completed University of 00:00:00 [facility] TDAP 2016-02-28 Completed University of 00:00:00 [facility] Influenza Virus 2015-04-24 Completed Universit y of Vaccine (3+ yrs) 00:00:00 [facility] Influenza Virus 2015-04-24 Completed Universit y of Vaccine 00:00:00 [facility] Influenza Virus 2015-04-24 Completed Universit y of Vaccine (3+ yrs) 00:00:00 [facility] Influenza Virus 2015-04-24 Completed Universit y of Vaccine 00:00:00 [facility] Influenza Virus 2015-04-24 Completed Universit y of Vaccine (3+ yrs) 00:00:00 [facility] Influenza Virus 2015-04-24 Completed Universit y of Vaccine 00:00:00 [facility] Influenza Virus 2014-03-30 Completed Universit y of Vaccine 00:00:00 [facility] Influenza Virus 2014-03-30 Completed Universit y of Vaccine 00:00:00 [facility] Influenza Virus 2014-03-30 Completed Universit y of Vaccine 00:00:00 [facility] Influenza Virus 2013-05-03 Completed Universit y of Vaccine 00:00:00 [facility] Influenza Virus 2013-05-03 Completed Universit y of Vaccine 00:00:00 [facility] Influenza Virus 2013-05-03 Completed Universit y of Vaccine 00:00:00 [facility] Vital Signs Vital Name Observation Time Observation Value Comments Source Systolic blood 2021-05-14 20:57:00 130 mm[Hg] Univer sity of pressure [facility] Diastolic blood 2021-05-14 20:57:00 87 mm[Hg] Unive rsity of pressure [facility] Heart rate 2021-05-14 20:57:00 82 /min [facility] Body temperature 2021-05-14 20:57:00 36.67 [facility] height 2021-05-14 20:57:00 175.3 cm [facility] Body weight 2021-05-14 20:57:00 117.935 kg [facility] BMI 2021-05-14 20:57:00 38.40 kg/m2 [facility] Oxygen saturation in 2021-05-14 20:57:00 98 /min [facility] Arterial blood by [facility] Pulse oximetry Branch Procedures This patient has no known procedures. Encounters Start End Encounter Admission Attending Care Care Encounter Source Date/Time Date/Time Type Type Clinicians Facility Department ID 2021-05-20 Emergency [facility] [id number] Univers 09:37:11 ity [facility] 2021-06-10 2021-06-10 Outpatient Oren PATEL [facility] [id number] [facility] 12:30:00 12:30:00 ALEJANDRA [id number] jacquie pringle [facility] 2021-05-27 2021-05-27 Order Desk Clerk Vtc-Lab [facility] [id number] Univers 15:45:58 16:00:58 Visit Alejandra Patel MULTISPEC 350.1. [id number] ity [id number] [id number] [address] [facility] 2021-05-27 2021-05-27 Outpatient R AMANDA [facility] [id number] Univers 16:00:00 16:00:00 ALEJANDRA [id number] jacquie paris [facility] 2021-05-27 2021-05-27 [facility] [id number] Univers 16:00:00 16:00:00 ALEJANDRA pringle [facility] 2021-05-22 2021-05-22 Patient Rohan [facility] [id number] Univers 00:00:00 00:00:00 Secure Msg Jennifer HEALTH [id number] ity of [place] [id number] Geoff as RY?BLEA [id number] [address] MEDICAL OFFICE [facility] 2021-05-14 2021-05-14 [facility] [id number] Univers 15:52:21 16:17:51 Visit Valeria A HEALTH [id number] i ty of [place] [id number] Geoff as RY?BLEA [id number] [address] MEDICAL OFFICE [facility] 2021-05-14 2021-05-14 [facility] [id number] Univers 16:00:00 16:00:00 VALERIA dhillon [facility] 2021-05-14 2021-05-14 [facility] [id number] Univers 14:00:00 14:00:00 VALERIA [id number] jacquie [facility] 2021-05-12 2021-05-12 Outpatient R ROHAN [facility] [id number] Univers 15:30:00 15:30:00 JENNIFER [id number] ity [facility] 2021-05-12 2021-05-12 Outpatient R ROHAN, [facility] [id number] Univers 15:30:00 15:30:00 JENNIFER ity [facility] 2021-05-09 2021-05-09 Outpatient COLLEEN, [facility] [id number] Univers 16:30:00 16:30:00 VALERIA [id number] ity [facility] 2021-05-08 2021-05-08 Outpatient COLLEEN, [facility] [id number] Univers 14:00:00 14:00:00 VALERIA [id number] [facility] 2021-04-16 2021-04-16 Outpatient [facility] [id number] Univers 11:30:00 11:30:00 [id number] [facility] 2021-04-16 2021-04-16 Outpatient R DEANNE, [facility] [id number] Univers 11:30:00 11:30:00 ZENY floreskb o f [facility] 2021-03-28 2021-03-28 Outpatient R SUSIE, [facility] [id number] Univers 08:00:00 08:00:00 LARISA [id number] [facility] 2021-03-27 2021-03-27 Outpatient Oren GUPTA, [facility] [id number] Univers 13:30:00 13:30:00 ALEKSANDRA [id number] [facility] 2021-03-27 2021-03-27 Outpatient Oren GUPTA, [facility] [id number] Univers 13:30:00 13:30:00 ALEKSANDRA [facility] 2021-03-20 2021-03-20 Outpatient SUSIE, [facility] [id number] Univers 08:30:00 08:30:00 LARISA [id number] [facility] 2021-03-14 2021-03-14 Outpatient Oren RICHARDS [facility] [id number] Univers 09:30:00 09:30:00 LARISA [id number] [facility] 2021-03-14 2021-03-14 Outpatient R RICHARDS, [facility] [id number] Univers 09:30:00 09:30:00 LARISA [facility] 2021-03-13 2021-03-13 Outpatient R COLLEEN, [facility] [id number] Univers 14:00:00 14:00:00 VALERIA [id number] [facility] [place] [facility] 2021-03-13 2021-03-13 Outpatient R COLLEEN [facility] [id number] Univers 14:00:00 14:00:00 VALERIA [facility] 2021-03-10 2021-03-10 Outpatient R KARONPRISCILLA [facility] [id number] Univers 14:30:00 14:30:00 JENNIFER [id number] [facility] 2021-03-10 2021-03-10 Outpatient R KARONPRISCILLA [facility] [id number] Univers 14:30:00 14:30:00 JENNIFER [facility] [place] [facility] 2021-02-20 2021-02-20 Outpatient COLLEEN, [facility] [id number] Univers 12:30:00 12:30:00 VALERIA [id number] [facility] [place] [facility] 2021-02-20 2021-02-20 Outpatient R COLLEEN, [facility] [id number] Univers 12:30:00 12:30:00 VALERIA [facility] 2021-02-03 2021-02-03 Outpatient R O'TEX, [facility] [id number] Univers 10:00:00 10:00:00 VIDAL [id number] [facility] 2021-02-03 2021-02-03 Outpatient R O'TEX, [facility] [id number] Univers 10:00:00 10:00:00 VIDAL [facility] 2020-12-09 2020-12-09 Outpatient R O'TEX, [facility] [id number] Univers 10:00:00 10:00:00 VIDAL [id number] [facility] [place] [facility] 2020-12-09 2020-12-09 Outpatient R O'TEX, [facility] [id number] Univers 10:00:00 10:00:00 VIDAL ity [facility] 2020-11-28 2020-11-28 Outpatient PENG, [facility] [id number] Univers 10:30:00 10:30:00 WONDIFUL [id number] ity o f [facility] 2020-11-28 2020-11-28 Outpatient R PENG, [facility] [id number] Univers 10:30:00 10:30:00 WONDIFUL ity o f [facility] 2020-11-27 2020-11-27 Outpatient R GRAMM, [facility] [id number] Univers 09:00:00 09:00:00 [facility] [id number] [facility] 2020-[facility] 2020-11-27 Outpatient R GRAMM, [facility] [id number] Univers 09:00:00 09:00:00 KERRI [facility] 2020-11-13 2020-11-13 Outpatient R PENG, [facility] [id number] Univers 09:00:00 09:00:00 WONDIFUL [id number] ity o f [facility] 2020-11-13 2020-11-13 Outpatient R PENG [facility] [id number] Univers 00:00:00 00:00:00 WONDIFUL ity o f [facility] 2020-11-06 2020-11-06 Outpatient R GRAMM, [facility] [id number] Univers 15:30:00 15:30:00 KERRI [id number] [facility] 2020-10-29 2020-10-29 Outpatient R [facility] [id number] Univers 08:00:00 08:00:00 [id number] [facility] 2020-10-29 2020-10-29 Outpatient R COLLEEN, [facility] [id number] Univers 08:00:00 08:00:00 VALERIA [facility] 2020-10-26 2020-10-26 Outpatient [facility] [id number] Univers 16:10:00 16:10:00 [facility] 2020-10-25 2020-10-25 Outpatient PENG, [facility] [id number] Univers 13:15:00 13:15:00 WONDIFUL [id number] ity o f [facility] 2020-10-25 2020-10-25 Outpatient R PENG, [facility] [id number] Univers 13:15:00 13:15:00 WONDIFUL ity o f [facility] 2020-10-05 2020-10-05 Outpatient [facility] [id number] Univers 16:10:00 16:10:00 ity of [facility] 2020-06-24 2020-06-24 Outpatient R PENG, [facility] [id number] Univers 00:00:00 00:00:00 WONDIFUL ity o f [facility] 2020-06-24 2020-06-24 Outpatient R PENG, [facility] [id number] Univers 00:00:00 00:00:00 WONDIFUL ity o f [facility] 2020-06-19 2020-06-19 Outpatient R [facility] [id number] Univers 09:00:00 09:00:00 ity of [facility] 2020-06-19 2020-06-19 Outpatient R JAIME, [facility] [id number] Univers 00:00:00 00:00:00 TANA ity o f [facility] 2020-06-17 2020-06-17 Outpatient R [facility] [id number] Univers 15:45:00 15:45:00 ity [facility] 2020-06-17 2020-06-17 Outpatient R [facility] [id number] Univers 15:45:00 15:45:00 ity of [facility] 2020-05-31 2020-05-31 Outpatient R JAIME, [facility] [id number] Univers 10:40:00 10:40:00 TANA [id number] ity o f [facility] 2020-05-31 2020-05-31 Outpatient R JAIME, [facility] [id number] Univers 10:40:00 10:40:00 QIAALEXANDRAJUN ity o f [facility] 2020-05-30 2020-05-30 Outpatient R PENG, [facility] [id number] Univers 11:30:00 11:30:00 WONDIFUL [id number] ity o f [facility] 2020-05-30 2020-05-30 Outpatient R PENG [facility] [id number] Univers 11:30:00 11:30:00 WONDIFUL ity o f [facility] 2020-02-02 2020-02-02 Telephone Rohan, [facility] [id number] 00:00:00 00:00:00 [facility] [id number] [place] [id number] Professio [id number] nal [address] 2020-02-01 2020-02-01 Laboratory Lab, [facility] [id number] 12:53:49 15:29:04 Only Fam Pob I Health [id number] [place] [id number] Professio [id number] nal 044 Office Building [facility] 2020-02-01 2020-02-01 Outpatient R [facility] [id number] Univers 13:40:00 13:40:00 [id number] [facility] 2020-02-01 2020-02-01 Outpatient R CARAPADMININorris [facility] [id number] Univers 13:40:00 13:40:00 DAQUAN [facility] 2020-01-28 2020-01-28 Outpatient R [facility] [id number] Univers 08:40:00 08:40:00 [id number] [facility] 2020-01-28 2020-01-28 Outpatient O ROHAN [facility] [id number] Univers 08:40:00 08:40:00 JENNIFER ity [facility] 2020-01-17 2020-01-17 Outpatient R JOELNAYELIGARCIA [facility] [id number] Univers 09:00:00 09:00:00 ROBIN ity [facility] 2020-01-17 2020-01-17 Outpatient R REMYGARCIA [facility] [id number] Univers 09:00:00 09:00:00 ROBIN ity [facility] 2019-11-17 2019-11-17 Outpatient R REMYGARCIA [facility] [id number] Univers 09:45:00 09:45:00 ROBIN ity [facility] 2019-11-17 2019-11-17 Outpatient Oren BURGESS [facility] [id number] Univers 09:45:00 09:45:00 ROBIN kb [facility] Results This patient has no known results.
== END 2021-05-27 05:55 | disposition home or self-care (01) ==
LOC: ER 02:26
DX: T78.3XXA Angioneurotic edema, initial encounter (principal); E78.00 Pure hypercholesterolemia, unspecified
CPT/HCPCS: 96361; 96374; 96375; 99284; J1200; J2930; J7040

== ENCOUNTER 2022-08-23 12:04 | Emergency (ER) | payer OTHER ==
--- OUTSIDE RECORDS SUMMARY | 2022-08-23 12:13 | XMS REPORT | Continuity of Care Document ---
:1980 Author Organization [facility] t Address [address] Nelson [address] [place] [id number] Care Team Providers Name Role Phone Remy Laws Primary Care Physician REMY HARP Attending Clinician Unavailable BRITTON YANEZ Attending Clinician Unavailable Britton Yanez MD Attending Clinician Remy Laws Attending Clinician Kai Davidson MD Attending Clinician KAI DAVIDSON Attending Clinician Unavailable Joselito Beauchamp MD Attending Clinician LARISA RICHARDS Attending Clinician Unavailable Kaykay Merrill PTA Attending Clinician Unavailable Larisa Richards MD Attending Clinician Doctor Unassigned, Skene Attending Clinician Unavailable Sarah Troy PTA Attending Clinician Unavailable Renny Merrill PTA Attending Clinician Unavailable Lab, Ang - Db Attending Clinician Unavailable Charity Rodriguez PT Attending Clinician Unavailable Valeria Solomon Attending Clinician Dhara Cintron MD Attending Clinician DHARA CINTRON Attending Clinician Unavailable Lindy Lopez PT Attending Clinician Unavailable VALERIA PHILIPPE Attending Clinician Unavailable Hill Santos Attending Clinician HILL BEDOLLA Attending Clinician Unavailable REFUGIO PAIZ Attending Clinician Unavailable Only, Ang Db Test Attending Clinician Unavailable IBIKUNRAYMOND, FOLUSHO F Attending Clinician Unavailable Ibnick DURAN Folusho F Attending Clinician Alejandra Vargas MD Attending Clinician [facility] Attending Clinician Unavailable ALEJANDRA VARGAS Attending Clinician Unavailable Rohan DURAN, Nitza Attending Clinician Ev Hawkins MD Attending Clinician Harry GALLOWAYP, Yany Attending Clinician NITZA MADRIGAL Attending Clinician Unavailable Britney CASTELLON, Serina Velasco Attending Clinician Unavailable Deanne DURAN, Christy Sharp Attending Clinician CHRISTY ALICEA Attending Clinician Unavailable Judith Khoury MD Attending Clinician Aleksandra Velez Attending Clinician ALEKSANDRA GUPTA Attending Clinician Unavailable JENIFER STOLL Attending Clinician Unavailable Robin Burgess MD Attending Clinician [facility] Attending Clinician Unavailable Jenifer Gerber Attending Clinician JUDITH KHOURY Attending Clinician Unavailable KERRI PALMER Attending Clinician Unavailable Pob, Adc Lab Main Attending Clinician Unavailable Refugio Paiz DO Attending Clinician ELISE RITCHIE Attending Clinician Unavailable Only, Adc Test Attending Clinician Unavailable Britton Costello MD Attending Clinician Elise Ritchie MD Attending Clinician Lab, Adc Fam Pob I Attending Clinician Unavailable Noel Espinal Attending Clinician NOEL PRUITT Attending Clinician Unavailable Lab, Pcp Covid Attending Clinician Unavailable ROBIN BURGESS Attending Clinician Unavailable VINCE ODOM Attending Clinician Unavailable REMY HARP Admitting Clinician Unavailable CHLOE, HI Dukes Admitting Clinician Unavailable PENG, WONDIFUL A Admitting Clinician Unavailable VINCE ODOM Admitting Clinician Unavailable Payers Payer Name Policy Type Policy Number Effective Date Expiration Date Mendy max [facility] [id number] 2016 PPO 00:00:00 Problems Condition Condition Condition Status Onset Resolution Last Treating Co mments Source Name Details Category Date Date Treatment Clinician Date Allergy, Allergy, Disease Active 2021-07 Unive rs initial initial 2-28 [place] Essential Essential Disease Active Uni vers hypertensi hypertensi 9-13 it y of on on 00:00: [place] 00 Medical Branch Wellness Wellness Disease Active Unive rs examinatio examinatio 8 it y of n n 00:00: [place] 00 Medical Branch Elevated Elevated Disease Active Unive rs blood blood 8-29 ity of pressure pressure 00:00: [place] reading in reading in 00 Me dical office office Branch without without diagnosis diagnosis of of hypertensi hypertensi on on Acute Acute Disease Active Univers bilateral bilateral 5-02 ity of low back low back 00:00: [place] pain pain 00 Medical without without Branch sciatica sciatica Weakness Weakness Disease Active Unive rs of both of both 5-02 ity of hips hips 00:00: [place] 00 Medical Branch Lumbar Lumbar Disease Active Univers spine spine 5-02 ity of instabilit instabilit 00:[place] Acute Acute Disease Active [facility] bilateral bilateral 4-12 ity of low back low back 00:00: [place] pain with pain with 00 Medi james bilateral bilateral Bran ch sciatica sciatica Mixed Mixed Disease Active Univers hyperlipid hyperlipid 4-12 it y of emia emia 00:00: [place] 00 Medical Branch Fatty Fatty Disease Active 2019-07 Univers liver liver 2-10 ity of 00:00: [place] 00 Medical Branch Vitamin D Vitamin D Disease Active 2019-07 Uni vers deficiency deficiency 1-25 it y of 00:00: [place] 00 Medical Branch Left thigh Left thigh Disease Active U nivers pain pain 9-15 ity of 00:00: [place] 00 Medical Branch DDD DDD Disease Active Univers (degenerat (degenerat 9-15 it y of sarika disc sarika disc 00:00: [place] disease), disease), 00 Medi james lumbar lumbar Branch Arthritis Arthritis Disease Active Uni vers of lumbar of lumbar 9-15 ity of spine spine 00:00: Medical Branch Elevated Elevated Disease Active Unive rs hemoglobin hemoglobin 3-10 it y of 00:00: 00 Medical Branch Varicocele Varicocele Disease Active U nivers 5-15 ity of 00:00: Medical Branch Depression Depression Disease Active U nivers 4-26 ity of 00:00: [place] [facility] Branch Obesity Obesity Disease Active Univers (BMI (BMI 5-06 ity of 30-39.9) 30-39.9) 00:00: Medical Branch Hepatosple Hepatosple Disease Active U nivers nomegaly nomegaly 4-24 ity of 00:00: Medical Branch Abnormal Abnormal Disease Active Unive rs LFTs LFTs 4-24 ity of 00:00: Medical Branch Anxiety Anxiety Disease Active Univers disorder disorder 4-21 ity of 00:00: Medical Branch Hyperchole Hyperchole Disease Active U nivers sterolemia sterolemia 4-21 it y of 00:00: [place] [facility] Allergies, Adverse Reactions, Alerts Allergy Allergy Status Severity Reaction(s) Onset Inactive Treating Comm ents Source Name Type Date Date Clinician Ibuprofe Propensi Active Swelling Lips Univ ers n ty to 01-14 swell, ity of adverse 00:00: taken it [place] reaction 00 since Medical s episode Branch of swelling without issues IBUPROFE DRUG Active Swelling Univer s N INGREDI 6- ity of 00:00: [place] [address] Medical Branch Social History Social Habit Start Date Stop Date Quantity Comments Source History [facility] University o f Alcohol Frequency [place] M edical Branch History [facility] University o f Alcohol Std [place] Medical Drinks Branch History [facility] University o f Alcohol Binge [place] Medic al Branch Exposure to 2022-08-07 2022-08-17 Not sure University of SARS-CoV-2 00:00:00 11:18:00 [place] Medical (event) Branch Alcohol intake 2022-08-17 2022-08-17 Current drinker Unive rsity of 00:00:00 00:00:[address] [facility] (finding) [place] Tobacco use and 2022-03-16 2022-03-16 Smokeless tobacco Un iversity of exposure 00:00:00 00:00:00 non-user [facility] Alcohol Comment 2016-11-06 2016-11-06 socially Universit y of 00:00:00 00:00:00 [facility] Sex [birth year] At [birth year] Universit y of 00:00:00 00:00:00 [facility] Smoking Status Start Date Stop Date Source Never smoked tobacco [facility] [place] Medications Ordered Filled Start Stop Current Ordering Indication Dosage Frequency Signature Comments Components Source Medication Medication Date Date Medication? Clinician (SIG) Name Name dexamethaso 2022- No [id number] 15mg Univers ne sod phos 08-14 ity of PF 16:30: 15:24 [place] injection 00 :00 Medical 15 mg Branch dexamethaso 2022- No [id number] 15mg 15 mg, Univers ne sod phos 08-14 Epidural, it y of PF 16:30: 15:24 ONCE, 1 [place] injection 00 :00 dose, On Medica l 15 mg Fri Branch 08/14/22 at 1030, Routine dexamethaso 2022- No [id number] 15mg Univers ne sod phos 08-14 ity of PF 16:30: 15:24 [place] injection 00 :00 Medical 15 mg Branch dexamethaso 2022- No [id number] 15mg 15 mg, Univers ne sod phos 08-14 Epidural, it y of PF 16:30: 15:24 ONCE, 1 [place] injection 00 :00 dose, On Medica l 15 mg Fri Branch 08/14/22 at 1030, Routine NaCl 0.9% 2022- No [id number] 4.5mL U nivers (NS) 08-14 ity of injection 16:15: 15:25 [place] 4.5 mL 00 :00 Medical Branch lidocaine 2022- No [id number] 10mL Un vashti 1% (PF) 08-14 ity of (XYLOCAINE) 16:15: 15:25 [place] injection 00 :00 Medical 10 mL Branch lidocaine 0 2022- No [id number] 10mL 10 mL, Univers 1% (PF) 08-14 Infiltrati ity o f (XYLOCAINE) 16:15: 15:25 on, ONCE, [place] injection 00 :00 1 dose, On Medi james 10 mL Fri Branch 08/14/22 at 1015, Routine NaCl 0.9% 2022-0 2022- No [id number] 4.5mL 4.5 mL, Univers (NS) 08-14 Infiltrati ity of injection 16:15: 15:25 [place] 4.5 [place] 00 :00 1 dose, On Medical Fri Branch 08/14/22 at 1015, Routine NaCl 0.9% 2022-0 2022- No [id number] 4.5mL U nivers (NS) 08-14 ity of injection 16:15: 15:25 [place] 4.5 mL 00 :00 Medical Branch lidocaine 2022-0 2022- No [id number] 10mL Un vashti 1% (PF) 08-14 ity of (XYLOCAINE) 16:15: 15:25 [place] injection 00 :00 Medical 10 mL Branch lidocaine 2022-0 2022- No [id number] 10mL 10 mL, Univers 1% (PF) 08-14 Infiltrati ity o f (XYLOCAINE) 16:15: 15:25 on, ONCE, [place] injection 00 :00 1 dose, On Medi james 10 mL Fri Branch 08/14/22 at 1015, Routine NaCl 0.9% 2022-0 2022- No [id number] 4.5mL 4.5 mL, Univers (NS) 08-14 Infiltrati ity of injection 16:15: 15:25 [place]CE[place] 4.5 [place] 00 :00 1 dose, On Medical Fri Branch 08/14/22 at 1015, Routine lactated 2022-0 2022- No [id number] 500mL Un vashti ringers IV 08-14 ity of infusion 15:30: 14:50 [place] 500 mL 00 :00 Medical Branch lactated 2022-0 2022- No [id number] 500mL at 20 U nivers ringers IV 1-27 01-27 mL/hr, 500 it y of infusion 15:30: 14:50 mL, IV [place] 500 mL 00 :00 Infusion, Medical ONCE, 1 Branch dose, On Wed08/14/22 at 0930, Routine lactated 2022-0 2022- No [id number] 500mL Un vashti ringers IV 08-14 ity of infusion 15:30: 14:50 [place] 500 mL 00 :00 Medical Branch lactated 2022-0 2022- No [id number] 500mL at 20 U nivers ringers IV 08-14 mL/hr, 500 it y of infusion 15:30: 14:50 mL, IV [place] 500 mL 00 :00 Infusion, Medical ONCE, 1 Branch dose, On Wed08/14/22 at 0930, Routine meloxicam 2022-0 Yes [id number] 7.5mg Take 1 Univers 7.5 mg 1-25 tablet by ity of tablet 00:00: mouth 2 (two) Medical times Branch daily as needed for Pain (scale 4-6) for up to 180 doses. meloxicam 2022-0 Yes [id number] 7.5mg Take 1 Univers 7.5 mg 1-25 tablet by ity of tablet 00:00: mouth 2 (two) Medical times Branch daily as needed for Pain (scale 4-6) for up to 180 doses. meloxicam 2022-0 Yes [id number] 7.5mg Take 1 Univers 7.5 mg 1-25 tablet by ity of tablet 00:00: mouth 2 (two) Medical times Branch daily as needed for Pain (scale 4-6) for up to 180 doses. meloxicam 2022-0 Yes [id number] 7.5mg Take 1 Univers 7.5 mg 1-25 tablet by ity of tablet 00:00: mouth 2 (two) Medical times Branch daily as needed for Pain (scale 4-6) for up to 180 doses. meloxicam 3-0 Yes [id number] 7.5mg Take 1 Univers 7.5 mg 1-25 tablet by ity of tablet 00:00: mouth 2 (two) Medical times Branch daily as needed for Pain (scale 4-6) for up to 180 doses. meloxicam 2022-0 Yes [id number] 7.5mg Take 1 Univers 7.5 mg 1-25 tablet by ity of tablet 00:00: mouth 2 (two) Medical times Branch daily as needed for Pain (scale 4-6) for up to 180 doses. meloxicam 3-0 Yes [id number] 7.5mg Take 1 Univers 7.5 mg 1-25 tablet by ity of tablet 00:00: mouth 2 (two) Medical times Branch daily as needed for Pain (scale 4-6) for up to 180 doses. meloxicam 3-0 Yes [id number] 7.5mg Take 1 Univers 7.5 mg 1-25 tablet by ity of tablet 00:00: mouth 2 [place] (two) Medical times Branch daily as needed for Pain (scale 4-6) for up to 180 doses. meloxicam 3-0 Yes [id number] 7.5mg Take 1 Univers 7.5 mg 1-25 tablet by ity of tablet 00:00: mouth 2 (two) Medical times Branch daily as needed for Pain (scale 4-6) for up to 180 doses. meloxicam 3-0 Yes [id number] 7.5mg Take 1 Univers 7.5 mg 1-25 tablet by ity of tablet 00:00: mouth 2 [place] (two) Medical times Branch daily as needed for Pain (scale 4-6) for up to 180 doses. methocarbam 3-0 2022- Yes [id number] 500mg Take 1 Univers oL 500 mg 1-25 04-26 tablet by ity of tablet 00:00: 04:59 mouth at [place] 00 :00 bedtime Medical for 90 Branch days. methocarbam 3-0 2022- Yes [id number] 500mg Take 1 Univers oL 500 mg 1-25 04-26 tablet by ity of tablet 00:00: 04:59 mouth at [place] 00 :00 bedtime Medical for 90 Branch days. methocarbam 3-0 2022- Yes [id number] 500mg Take 1 Univers oL 500 mg 1-25 04-26 tablet by ity of tablet 00:00: 04:59 mouth at [place] 00 :00 bedtime Medical for 90 Branch days. methocarbam 3-0 2022- Yes [id number] 500mg Take 1 Univers oL 500 mg 1-25 04-26 tablet by ity of tablet 00:00: 04:59 mouth at [place] 00 :00 bedtime Medical for 90 Branch days. methocarbam 2022- Yes [id number] 500mg Take 1 Univers oL 500 mg 08-12-26 tablet by ity of tablet 00:00: 04:59 mouth at [place] 00 :00 bedtime Medical for 90 Branch days. methocarbam 2022- Yes [id number] 500mg Take 1 Univers oL 500 mg 08-12-26 tablet by ity of tablet 00:00: 04:59 mouth at [place] 00 :00 bedtime Medical for 90 Branch days. methocarbam 2022- Yes [id number] 500mg Take 1 Univers oL 500 mg -10 11-26 tablet by ity of tablet 00:00: 04:59 mouth at [place] 00 :00 bedtime Medical for 90 Branch days. methocarbam 2022- Yes [id number] 500mg Take 1 Univers oL 500 mg 08-12-26 tablet by ity of tablet 00:00: 04:59 mouth at [place] 00 :00 bedtime Medical for 90 Branch days. methocarbam 2022- Yes [id number] 500mg Take 1 Univers oL 500 mg 08-12- tablet by ity of tablet 00:00: 04:59 mouth at [place] 00 :00 bedtime Medical for 90 Branch days. methocarbam 2022- Yes [id number] 500mg Take 1 Univers oL 500 mg 08-12-26 tablet by ity of tablet 00:00: 04:59 mouth at [place] [facility] [facility] for [facility] Branch [facility]. methylPREDN 2021-07- Yes [id number] Take by [facility] ISolone 08-15 12-04 mouth ity of (MEDROL, 00:00: 05:59 [place] 4 mg 00 :00 CTIONS for Med ical tablets 5 days. Branch follow package directions methylPREDN 2021-07- Yes [id number] Take by [facility] ISolone 08-15 12-04 mouth ity of (MEDROL, 00:00: 05:59 [place] 4 mg 00 :00 CTIONS for Med ical tablets 5 days. Branch follow package directions ATORVASTATI 2021-07 Yes [id number] TAKE 1 Univers N 20 mg 1-21 TABLET BY ity of tablet 00:00: MOUTH [place] 00 EVERYDAY Medical AT BEDTIME Branch [facility] 2021-07 Yes [id number] TAKE 1 Univers N 20 mg 1-21 TABLET BY ity of tablet 00:00: MOUTH [place] 00 EVERYDAY Medical AT BEDTIME [place] [facility]-07 Yes [id number] TAKE 1 Univers N 20 mg 1-21 TABLET BY ity of tablet 00:00: MOUTH [place] EVERYDAY Medical AT BEDTIME [place] [facility]-07 Yes [id number] TAKE 1 Univers N 20 mg 1-21 TABLET BY ity of tablet 00:00: MOUTH [place] 00 EVERYDAY Medical AT BEDTIME [place] [facility]-07 Yes [id number] TAKE 1 Univers N 20 mg 1-21 TABLET BY ity of tablet 00:00: MOUTH [place] EVERYDAY Medical AT BEDTIME [place] [facility]-07 Yes [id number] TAKE 1 Univers N 20 mg 1-21 TABLET BY ity of tablet 00:00: MOUTH [place] EVERYDAY Medical AT BEDTIME [place] [facility] 2021-07 Yes [id number] TAKE 1 Univers N 20 mg 1-21 TABLET BY ity of tablet 00:00: MOUTH [place] 00 EVERYDAY Medical AT BEDTIME [place] [facility] 2021-07 Yes [id number] TAKE 1 Univers N 20 mg 1-21 TABLET BY ity of tablet 00:00: MOUTH [place] EVERYDAY Medical AT BEDTIME [place] [facility] 2021-07 Yes [id number] TAKE 1 Univers N 20 mg 1-21 TABLET BY ity of tablet 00:00: MOUTH [place] EVERYDAY Medical AT BEDTIME [place] [facility] Yes [id number] TAKE 1 Univers N 20 mg 1-21 TABLET BY ity of tablet 00:00: MOUTH [place] 00 EVERYDAY Medical AT BEDTIME [place] [facility] 2021- Yes [id number] TAKE 1 Univers N 20 mg 1-21 TABLET BY ity of tablet 00:00: MOUTH [place] 00 EVERYDAY Medical AT BEDTIME [place] [facility] Yes [id number] TAKE 1 Univers N 20 mg 1-21 TABLET BY ity of tablet 00:00: MOUTH [place] 00 EVERYDAY Medical AT BEDTIME [place] [facility] Yes [id number] TAKE 1 Univers N 20 mg 1-21 TABLET BY ity of tablet 00:00: MOUTH [place] 00 EVERYDAY Medical AT BEDTIME [facility] 2021-07 Yes [id number] TAKE 1 Univers N 20 mg 1-21 TABLET BY ity of tablet 00:00: MOUTH [place] 00 EVERYDAY Medical AT BEDTIME [facility] 2021-07 Yes [id number] TAKE 1 Univers N 20 mg 1-21 TABLET BY ity of tablet 00:00: MOUTH [place] 00 EVERYDAY Medical AT BEDTIME [facility] 2021-07 Yes [id number] TAKE 1 Univers N 20 mg 1-21 TABLET BY ity of tablet 00:00: MOUTH [place] 00 EVERYDAY Medical AT BEDTIME [facility] 2021-07 Yes [id number] TAKE 1 Univers N 20 mg 1-21 TABLET BY ity of tablet 00:00: MOUTH [place] 00 EVERYDAY Medical AT BEDTIME [facility] 2021-07 Yes [id number] TAKE 1 Univers N 20 mg 1-21 TABLET BY ity of tablet 00:00: MOUTH [place] 00 [facility]07 Yes [id number] TAKE 1 Univers N 20 mg 1-21 TABLET BY ity of tablet 00:00: MOUTH [place] 00 EVERYDAY Medical AT BEDTIME [facility] 2021-07 Yes [id number] TAKE 1 Univers N 20 mg 1-21 TABLET BY ity of tablet 00:00: MOUTH [place] 00 EVERYDAY Medical AT BEDTIME [place] BUSPIRONE 5 2021-07 Yes [id number] 5mg TAKE 1 Univers mg tablet 0-07 TABLET BY ity o f 00:00: MOUTH IN [place] 00 THE Medical MORNING Branch AND 1 TABLET IN THE EVENING. BUSPIRONE 5 2021-07 Yes [id number] 5mg TAKE 1 Univers mg tablet 0-07 TABLET BY ity o f 00:00: MOUTH IN [place] 00 THE Medical MORNING Branch AND 1 TABLET IN THE EVENING. BUSPIRONE 5 2021-07 Yes [id number] 5mg TAKE 1 Univers mg tablet 0-07 TABLET BY ity o f 00:00: MOUTH IN [place] 00 THE Medical MORNING Branch AND 1 TABLET IN THE EVENING. BUSPIRONE 5 2021-07 Yes [id number] 5mg TAKE 1 Univers mg tablet 0-07 TABLET BY ity o f 00:00: MOUTH IN [place] 00 THE Medical MORNING Branch AND 1 TABLET IN THE EVENING. BUSPIRONE 2021-07 Yes [id number] 5mg TAKE 1 Univers mg tablet 0-07 TABLET BY ity o f 00:00: MOUTH IN [place] 00 THE Medical MORNING Branch AND 1 TABLET IN THE EVENING. BUSPIRONE 5 2021-07 Yes [id number] 5mg TAKE 1 Univers mg tablet 0-07 TABLET BY ity o f 00:00: MOUTH IN [place] 00 THE Medical MORNING Branch AND 1 TABLET IN THE EVENING. BUSPIRONE 5 2021-07 Yes [id number] 5mg TAKE 1 Univers mg tablet 0-07 TABLET BY ity o f 00:00: MOUTH IN [place] 00 THE Medical MORNING Branch AND 1 TABLET IN THE EVENING. BUSPIRONE 5 2021-07 Yes [id number] 5mg TAKE 1 Univers mg tablet 0-07 TABLET BY ity o f 00:00: MOUTH IN [place] 00 THE Medical MORNING Branch AND 1 TABLET IN THE EVENING. BUSPIRONE 2021-07 Yes [id number] 5mg TAKE 1 Univers mg tablet 0-07 TABLET BY ity o f 00:00: MOUTH IN [place] 00 THE Medical MORNING Branch AND 1 TABLET IN THE EVENING. BUSPIRONE 2021-07 Yes [id number] 5mg TAKE 1 Univers mg tablet 0-07 TABLET BY ity o f 00:00: MOUTH IN [place] 00 THE Medical MORNING Branch AND 1 TABLET IN THE EVENING. BUSPIRONE 2021-07 Yes [id number] 5mg TAKE 1 Univers mg tablet 0-07 TABLET BY ity o f 00:00: MOUTH IN [place] 00 THE Medical MORNING Branch AND 1 TABLET IN THE EVENING. BUSPIRONE 2021-07 Yes [id number] 5mg TAKE 1 Univers mg tablet 0-07 TABLET BY ity o f 00:00: MOUTH IN [place] 00 THE Medical MORNING Branch AND 1 TABLET IN THE EVENING. BUSPIRONE 2021-07 Yes [id number] 5mg TAKE 1 Univers mg tablet 0-07 TABLET BY ity o f 00:00: MOUTH IN [place] 00 THE Medical MORNING Branch AND 1 TABLET IN THE EVENING. BUSPIRONE 5 2021-07 Yes [id number] 5mg TAKE 1 Univers mg tablet 0-07 TABLET BY ity o f 00:00: MOUTH IN [place] 00 THE Medical MORNING Branch AND 1 TABLET IN THE EVENING. BUSPIRONE 5 2022-1 Yes [id number] 5mg TAKE 1 Univers mg tablet 0-07 TABLET BY ity o f 00:00: MOUTH IN [place] 00 THE Medical MORNING Branch AND 1 TABLET IN THE EVENING. BUSPIRONE 5 2021-07 Yes [id number] 5mg TAKE 1 Univers mg tablet 0-07 TABLET BY ity o f 00:00: MOUTH IN [place] 00 THE Medical MORNING Branch AND 1 TABLET IN THE EVENING. BUSPIRONE 5 2021-07 Yes [id number] 5mg TAKE 1 Univers mg tablet 0-07 TABLET BY ity o f 00:00: MOUTH IN [place] 00 THE Medical MORNING Branch AND 1 TABLET IN THE EVENING. BUSPIRONE 5 2021-07 Yes [id number] 5mg TAKE 1 Univers mg tablet 0-07 TABLET BY ity o f 00:00: MOUTH IN [place] 00 THE Medical MORNING Branch AND 1 TABLET IN THE EVENING. BUSPIRONE 5 2021-07 Yes [id number] 5mg TAKE 1 Univers mg tablet 0-07 TABLET BY ity o f 00:00: MOUTH IN [place] 00 THE Medical MORNING Branch AND 1 TABLET IN THE EVENING. BUSPIRONE 2021-07 Yes [id number] 5mg TAKE 1 Univers mg tablet 0-07 TABLET BY ity o f 00:00: MOUTH IN [place] 00 THE Medical MORNING Branch AND 1 TABLET IN THE EVENING. BUSPIRONE 5 2021-07 Yes [id number] 5mg TAKE 1 Univers mg tablet 0-07 TABLET BY ity o f 00:00: MOUTH IN [place] 00 THE Medical MORNING Branch AND 1 TABLET IN THE EVENING. BUSPIRONE 5 2021-07 Yes [id number] 5mg TAKE 1 Univers mg tablet 0-07 TABLET BY ity o f 00:00: MOUTH IN [place] 00 THE Medical MORNING Branch AND 1 TABLET IN THE EVENING. BUSPIRONE 5 2021-07 Yes [id number] 5mg TAKE 1 Univers mg tablet 0-07 TABLET BY ity o f 00:00: MOUTH IN [place] 00 THE Medical MORNING Branch AND 1 TABLET IN THE EVENING. BUSPIRONE 5 2021-07 Yes [id number] 5mg TAKE 1 Univers mg tablet 0-07 TABLET BY ity o f 00:00: MOUTH IN [place] 00 THE Medical MORNING Branch AND 1 TABLET IN THE EVENING. BUSPIRONE 5 2021-07 Yes [id number] 5mg TAKE 1 Univers mg tablet 0-07 TABLET BY ity o f 00:00: MOUTH IN [place] 00 THE Medical MORNING Branch AND 1 TABLET IN THE EVENING. BUSPIRONE 5 2021-07 Yes [id number] 5mg TAKE 1 Univers mg tablet 0-07 TABLET BY ity o f 00:00: MOUTH IN [place] 00 THE Medical MORNING Branch AND 1 TABLET IN THE EVENING. BUSPIRONE 5 2021-07 Yes [id number] 5mg TAKE 1 Univers mg tablet 0-07 TABLET BY ity o f 00:00: MOUTH IN [place] 00 THE Medical MORNING Branch AND 1 TABLET IN THE EVENING. BUSPIRONE 5 2021-07 Yes [id number] 5mg TAKE 1 Univers mg tablet 0-07 TABLET BY ity o f 00:00: MOUTH IN [place] 00 THE Medical MORNING Branch AND 1 TABLET IN THE EVENING. BUSPIRONE 5 2021-07 Yes [id number] 5mg TAKE 1 Univers mg tablet 0-07 TABLET BY ity o f 00:00: MOUTH IN [place] 00 THE Medical MORNING Branch AND 1 TABLET IN THE EVENING. BUSPIRONE 5 2021-07 Yes [id number] 5mg TAKE 1 Univers mg tablet 0-07 TABLET BY ity o f 00:00: MOUTH IN [place] 00 THE Medical MORNING Branch AND 1 TABLET IN THE EVENING. BUSPIRONE 5 2021-07 Yes [id number] 5mg TAKE 1 Univers mg tablet 0-07 TABLET BY ity o f 00:00: MOUTH IN [place] 00 THE Medical MORNING Branch AND 1 TABLET IN THE EVENING. SERTraline Yes [id number] 50mg Take 1 U nivers (ZOLOFT) 50 9-13 tablet by ity of mg tablet 00:00: mouth in [facility] 00 the Medical morning. Branch busPIRone 5 Yes [id number] 5mg Take 1 Univers mg tablet 9-13 tablet by ity o f 00:00: mouth in [place] 00 the Medical morning Branch and 1 tablet in the evening. SERTraline 0 Yes [id number] 50mg Take 1 U nivers (ZOLOFT) 50 9-13 tablet by ity of mg tablet 00:00: [place] in [place] 00 the Medical morning. Branch busPIRone 5 Yes [id number] 5mg Take 1 Univers mg tablet 9-13 tablet by ity o f 00:00: mouth in [place] [address] the Medical morning Branch and 1 tablet in the evening. SERTraline 2021-0 Yes [id number] 50mg Take 1 [facility] ([facility]) 50 9-13 tablet by [facility] mg tablet 00:00: [place] the Medical morning. Branch busPIRone 5 2021-0 Yes [id number] 5mg Take 1 [facility] mg tablet 9-13 tablet by it[facility] o f 00:00: mouth in [place] the morning Branch and 1 tablet in the evening. SERTraline 2021-0 Yes [id number] 50mg Take 1 [facility] ([facility]) 50 9-13 tablet by [facility] mg tablet 00:00: [place] 00 the Medical morning. Branch busPIRone 5 2021-0 Yes [id number] 5mg Take 1 [facility] mg tablet 9-13 tablet by ity o f 00:00: mouth in [place] the morning Branch and 1 tablet in the evening. SERTraline 2021-0 Yes [id number] 50mg Take 1 [facility] ([facility]) 50 9-13 tablet by [facility] mg tablet 00:00: [place] the Medical morning. Branch busPIRone 5 2021-0 Yes [id number] 5mg Take 1 [facility] mg tablet 9-13 tablet by ity o f 00:00: mouth in [place] the morning Branch and 1 tablet in the evening. SERTraline 2021-0 Yes [id number] 50mg Take 1 [facility] ([facility]) 50 9-13 tablet by [facility] mg tablet 00:00: [place] the Medical morning. Branch busPIRone 5 2021-0 Yes [id number] 5mg Take 1 [facility] mg tablet 9-13 tablet by ity o f 00:00: mouth in [place] the morning Branch and 1 tablet in the evening. SERTraline 2021-0 Yes [id number] 50mg Take 1 [facility] ([facility]) 50 9-13 tablet by [facility] mg tablet 00:00: [place] 00 the Medical morning. Branch SERTraline 2-0 Yes [id number] 50mg Take 1 [facility] ([facility]) 50 9-13 tablet by [facility] mg tablet 00:00: [place] 00 the Medical morning. Branch SERTraline 2021-0 Yes [id number] 50mg Take 1 [facility] ([facility]) 50 9-13 tablet by [facility] mg tablet 00:00: [place] 00 the Medical morning. Branch SERTraline 2021-0 Yes [id number] 50mg Take 1 [facility] ([facility]) 50 9-13 tablet by [facility] mg tablet 00:00: [place] 00 the Medical morning. Branch SERTraline 2021-0 Yes [id number] 50mg Take 1 [facility] ([facility]) 50 9-13 tablet by [facility] mg tablet 00:00: [place] 00 the Medical morning. Branch SERTraline 2021-0 Yes [id number] 50mg Take 1 [facility] ([facility]) 50 9-13 tablet by [facility] mg tablet 00:00: [place] 00 the Medical morning. Branch SERTraline 0 Yes [id number] 50mg Take 1 [facility] ([facility]) 50 9-13 tablet by [facility] mg tablet 00:00: [place] 00 the Medical morning. Branch SERTraline 0 Yes [id number] 50mg Take 1 [facility] ([facility]) 50 9-13 tablet by [facility] mg tablet 00:00: [place] 00 the Medical morning. Branch SERTraline 2021-0 Yes [id number] 50mg Take 1 [facility] ([facility]) 50 9-13 tablet by [facility] mg tablet 00:00: [place] 00 the Medical morning. Branch SERTraline 2021-0 Yes [id number] 50mg Take 1 [facility] ([facility]) 50 9-13 tablet by [facility] mg tablet 00:00: [place] 00 the Medical morning. Branch SERTraline 2021-0 Yes [id number] 50mg Take 1 [facility] ([facility]) 50 9-13 tablet by [facility] mg tablet 00:00: [place] 00 the Medical morning. Branch SERTraline 2021-0 Yes [id number] 50mg Take 1 [facility] ([facility]) 50 9-13 tablet by [facility] mg tablet 00:00: [place] 00 the Medical morning. Branch SERTraline 2021-0 Yes [id number] 50mg Take 1 [facility] ([facility]) 50 9-13 tablet by [facility] mg tablet 00:00: [place] 00 the Medical morning. Branch SERTraline 2021-0 Yes [id number] 50mg Take 1 [facility] ([facility]) 50 9-13 tablet by [facility] mg tablet 00:00: [place] 00 the Medical morning. Branch SERTraline 2021-0 Yes [id number] 50mg Take 1 [facility] ([facility]) 50 9-13 tablet by [facility] mg tablet 00:00: [place] 00 the Medical morning. Branch SERTraline 2021-0 Yes [id number] 50mg Take 1 [facility] ([facility]) 50 9-13 tablet by [facility] mg tablet 00:00: [place] 00 the Medical morning. Branch SERTraline 2021-0 Yes [id number] 50mg Take 1 [facility] ([facility]) 50 9-13 tablet by [facility] mg tablet 00:00: [place] 00 the Medical morning. Branch SERTraline 2021-0 Yes [id number] 50mg Take 1 [facility] ([facility]) 50 9-13 tablet by [facility] mg tablet 00:00: [place] 00 the Medical morning. Branch SERTraline 2021-0 Yes [id number] 50mg Take 1 [facility] ([facility]) 50 9-13 tablet by [facility] mg tablet 00:00: [place] 00 the Medical morning. Branch SERTraline 2021-0 Yes [id number] 50mg Take 1 [facility] ([facility]) 50 9-13 tablet by [facility] mg tablet 00:00: [place] 00 the Medical morning. Branch SERTraline 2021-0 Yes [id number] 50mg Take 1 [facility] ([facility]) 50 9-13 tablet by [facility] mg tablet 00:00: [place] 00 the Medical morning. Branch SERTraline 2021-0 Yes [id number] 50mg Take 1 [facility] ([facility]) 50 9-13 tablet by [facility] mg tablet 00:00: [place] 00 the Medical morning. Branch SERTraline 2021-0 Yes [id number] 50mg Take 1 [facility] ([facility]) 50 9-13 tablet by [facility] mg tablet 00:00: [place] 00 the Medical morning. Branch SERTraline 0 Yes [id number] 50mg Take 1 [facility] ([facility]) 50 9-13 tablet by [facility] mg tablet 00:00: [place] 00 the Medical morning. Branch SERTraline 2021-0 Yes [id number] 50mg Take 1 [facility] ([facility]) 50 9-13 tablet by [facility] mg tablet 00:00: [place] the Medical morning. Branch SERTraline 2021-0 Yes [id number] 50mg Take 1 [facility] ([facility]) 50 9-13 tablet by [facility] mg tablet 00:00: [place] 00 the Medical morning. Branch SERTraline 2021-0 Yes [id number] 50mg Take 1 [facility] ([facility]) 50 9-13 tablet by [facility] mg tablet 00:00: [place] 00 the Medical morning. Branch SERTraline 0 Yes [id number] 50mg Take 1 [facility] ([facility]) 50 9-13 tablet by [facility] mg tablet 00:00: [place] the Medical morning. Branch SERTraline 0 Yes [id number] 50mg Take 1 [facility] ([facility]) 50 9-13 tablet by [facility] mg tablet 00:00: [place] 00 the Medical morning. Branch SERTraline 0 Yes [id number] 50mg Take 1 [facility] ([facility]OL[facility]) 50 9-13 tablet by [facility] mg tablet 00:00: [place] the Medical morning. Branch SERTraline 2021-0 Yes [id number] 50mg Take 1 [facility] ([facility]) 50 9-13 tablet by [facility] mg tablet 00:00: [place] 00 the Medical morning. Branch SERTraline 2021-0 Yes [id number] 50mg Take 1 [facility] ([facility]OL[facility]) 50 9-13 tablet by [facility] mg tablet 00:00: [place] 00 the Medical morning. Branch busPIRone 5 2021-0 2021- No [id number] 5mg Take 1 [facility] mg tablet 03-31 10-07 tablet by ity of 00:00: 00:00 mouth in [place] 00 :00 the Medical morning Branch and 1 tablet in the evening. busPIRone 5 2021- No [id number] 5mg Take 1 [facility] mg tablet 03-31 tablet by ity of 00:00: 00:00 mouth in [place] 00 :00 the Medical morning Branch and 1 tablet in the evening. losartan 25 2021-0 2021- No [id number] 25mg Take 1 [facility] mg tablet 03-31 tablet by ity of 00:00: 00:00 mouth in [place] 00 :00 the Medical morning. Branch PANTOPRAZOL 0 Yes [id number] TAKE 1 [facility] E 40 mg EC 5-19 TABLET BY ity of tablet 00:00: MOUTH [place] 00 EVERY DAY Medical Branch PANTOPRAZOL 2021-0 Yes [id number] TAKE 1 [facility] E 40 mg EC 5-19 TABLET BY ity of tablet 00:00: [facility] 00 EVERY DAY Medical Branch PANTOPRAZOL 2021-0 Yes [id number] TAKE 1 [facility] E 40 mg EC 5-19 TABLET BY ity of tablet 00:00: [facility] 00 EVERY DAY Medical Branch PANTOPRAZOL 2021-0 Yes [id number] TAKE 1 [facility] E 40 mg EC 5-19 TABLET BY ity of tablet 00:00: [facility] 00 EVERY DAY Medical Branch PANTOPRAZOL 2021-0 Yes [id number] TAKE 1 [facility] E 40 mg EC 5-19 TABLET BY ity of tablet 00:00: [facility] 00 EVERY DAY Medical Branch PANTOPRAZOL 2021-0 Yes [id number] TAKE 1 [facility] E 40 mg EC 5-19 TABLET BY ity of tablet 00:00: [facility] 00 EVERY DAY Medical Branch PANTOPRAZOL 2021-0 Yes [id number] TAKE 1 [facility] E 40 mg EC 5-19 TABLET BY ity of tablet 00:00: [facility] 00 EVERY DAY Medical Branch PANTOPRAZOL 2021-0 Yes [id number] TAKE 1 [facility] E 40 mg EC 5-19 TABLET BY ity of tablet 00:00: [facility] 00 EVERY DAY Medical Branch PANTOPRAZOL 2021-0 Yes [id number] TAKE 1 [facility] E 40 mg EC 5-19 TABLET BY ity of tablet 00:00: [facility] 00 EVERY DAY Medical Branch PANTOPRAZOL 2021-0 Yes [id number] TAKE 1 [facility] E 40 mg EC 5-19 TABLET BY ity of tablet 00:00: MOUTH [place] 00 EVERY DAY Medical Branch PANTOPRAZOL 2021-0 Yes [id number] TAKE 1 [facility] E 40 mg EC 5-19 TABLET BY ity of tablet 00:00: MOUTH [place] 00 EVERY DAY Medical Branch PANTOPRAZOL 2021-0 Yes [id number] TAKE 1 [facility] E 40 mg EC 5-19 TABLET BY ity of tablet 00:00: MOUTH [place] 00 EVERY DAY Medical Branch PANTOPRAZOL 2021-0 Yes [id number] TAKE 1 [facility] E 40 mg EC 5-19 TABLET BY ity of tablet 00:00: MOUTH [place] 00 EVERY DAY Medical Branch PANTOPRAZOL 2021-0 Yes [id number] TAKE 1 [facility] E 40 mg EC 5-19 TABLET BY ity of tablet 00:00: MOUTH [place] 00 EVERY DAY Medical Branch PANTOPRAZOL 2021-0 Yes [id number] TAKE 1 [facility] E 40 mg EC 5-19 TABLET BY ity of tablet 00:00: MOUTH [place] 00 EVERY DAY Medical Branch PANTOPRAZOL 2021-0 Yes [id number] TAKE 1 [facility] E 40 mg EC 5-19 TABLET BY ity of tablet 00:00: MOUTH [place] 00 EVERY DAY Medical Branch PANTOPRAZOL 2021-0 Yes [id number] TAKE 1 [facility] E 40 mg EC 5-19 TABLET BY ity of tablet 00:00: MOUTH [place] 00 EVERY DAY Medical Branch PANTOPRAZOL 2021-0 Yes [id number] TAKE 1 [facility] E 40 mg EC 5-19 TABLET BY ity of tablet 00:00: MOUTH [place] 00 EVERY DAY Medical Branch PANTOPRAZOL 2021-0 Yes [id number] TAKE 1 [facility] E 40 mg EC 5-19 TABLET BY ity of tablet 00:00: MOUTH [place] 00 EVERY DAY Medical Branch PANTOPRAZOL 2-0 2- No [id number] TAKE 1 [facility] E 40 mg EC 5-19 11-28 TABLET BY ity of tablet 00:00: 00:00 MOUTH [place] 00 :00 EVERY DAY Medical Branch PANTOPRAZOL 2-0 2- No [id number] TAKE 1 [facility] E 40 mg EC 5-19 11-28 TABLET BY ity of tablet 00:00: 00:00 MOUTH [place] 00 :00 EVERY DAY Medical Branch atorvastati 2-0 Yes [id number] 20mg Take 1 [facility] n 20 mg 4-12 tablet by ity of tablet 00:00: mouth at [place] 00 bedtime. Medical Branch atorvastati 0 Yes [id number] 20mg Take 1 [facility] n 20 mg 4-12 tablet by ity of tablet 00:00: mouth at [place] bedtime. Medical Branch atorvastati 0 Yes [id number] 20mg Take 1 [facility] n 20 mg 4-12 tablet by ity of tablet 00:00: mouth at [place] bedtime. Medical Branch atorvastati 2021-0 Yes [id number] 20mg Take 1 [facility] n 20 mg 4-12 tablet by ity of tablet 00:00: mouth at [place] bedtime. Medical Branch atorvastati 0 Yes [id number] 20mg Take 1 [facility] n 20 mg 4-12 tablet by ity of tablet 00:00: mouth at [place] bedtime. Medical Branch atorvastati Yes [id number] 20mg Take 1 [facility] n 20 mg 4-12 tablet by ity of tablet 00:00: mouth at [place] bedtime. Medical Branch atorvastati 0 Yes [id number] 20mg Take 1 [facility] n 20 mg 4-12 tablet by ity of tablet 00:00: mouth at [place] bedtime. Medical Branch atorvastati 0 Yes [id number] 20mg Take 1 [facility] n 20 mg 4-12 tablet by ity of tablet 00:00: mouth at [place] bedtime. Medical Branch atorvastati 0 Yes [id number] 20mg Take 1 [facility] n 20 mg 4-12 tablet by ity of tablet 00:00: mouth at [place] bedtime. Medical Branch atorvastati 0 Yes [id number] 20mg Take 1 [facility] n 20 mg 4-12 tablet by ity of tablet 00:00: mouth at [place] bedtime. Medical Branch atorvastati 0 Yes [id number] 20mg Take 1 [facility] n 20 mg 4-12 tablet by ity of tablet 00:00: mouth at [place] bedtime. Medical Branch atorvastati 0 Yes [id number] 20mg Take 1 [facility] n 20 mg 4-12 tablet by ity of tablet 00:00: mouth at [place] [address] bedtime. Medical Branch atorvastati 0 Yes [id number] 20mg Take 1 [facility] n 20 mg 4-12 tablet by ity of tablet 00:00: mouth at [place] [address] bedtime. Medical Branch atorvastati Yes [id number] 20mg Take 1 [facility] n 20 mg 4-12 tablet by ity of tablet 00:00: mouth at [place] [address] bedtime. Medical Branch atorvastati Yes [id number] 20mg Take 1 [facility] n 20 mg 4-12 tablet by ity of tablet 00:00: mouth at [place] [address] bedtime. Medical Branch atorvastati Yes [id number] 20mg Take 1 [facility] n 20 mg 4-12 tablet by ity of tablet 00:00: mouth at [place] 00 bedtime. Medical Branch atorvastati 2021- No [id number] 20mg Take 1 [facility] n 20 mg 4-12 11-21 tablet by ity of tablet 00:00: 00:00 mouth at [place] 00 :00 bedtime. Medical Branch atorvastati 2021- No [id number] 20mg Take 1 [facility] n 20 mg 4-12 11-21 tablet by ity of tablet 00:00: 00:00 mouth at [place] 00 :00 bedtime. Medical Branch atorvastati 2021- No [id number] 20mg Take 1 [facility] n 20 mg 4-12 11-21 tablet by ity of tablet 00:00: 00:00 mouth at [place] 00 :00 bedtime. Medical Branch EPINEPHrine 2020-07 Yes Univer s 0.3 mg/0.3 1-10 ity of mL 00:00: [place] injection Medical Branch EPINEPHrine 2020-07 Yes [facility] s 0.3 mg/0.3 1-10 ity of mL 00:00: [place] injection 00 Medical Branch EPINEPHrine 2020-07 Yes [facility] s 0.3 mg/0.3 1-10 ity of mL 00:00: [place] injection Medical Branch EPINEPHrine 2020-07 Yes [facility]iver s 0.3 mg/0.3 1-10 ity of mL 00:00: [place] injection Medical Branch EPINEPHrine 2020-07 Yes [facility]iver s 0.3 mg/0.3 1-10 ity of mL 00:00: [place] injection Medical Branch EPINEPHrine 2020-07 Yes Univer s 0.3 mg/0.3 1-10 ity of mL 00:00: [place] injection 00 Medical Branch EPINEPHrine 2020-07 Yes Univer s 0.3 mg/0.3 1-10 ity of mL 00:00: [place] injection Medical Branch EPINEPHrine 2020-07 Yes Univer s 0.3 mg/0.3 1-10 ity of mL 00:00: [place] injection Medical Branch EPINEPHrine 2020-07 Yes Univer s 0.3 mg/0.3 1-10 ity of mL 00:00: [place] injection Medical Branch EPINEPHrine 2020-07 Yes Univer s 0.3 mg/0.3 1-10 ity of mL 00:00: [place] injection Medical Branch EPINEPHrine 2020-07 Yes Univer s 0.3 mg/0.3 1-10 ity of mL 00:00: [place] injection Medical Branch EPINEPHrine 2020-07 Yes Univer s 0.3 mg/0.3 1-10 ity of mL 00:00: [place] injection Medical Branch EPINEPHrine 2020-07 Yes Univer s 0.3 mg/0.3 1-10 ity of mL 00:00: [place] injection Medical Branch EPINEPHrine 2020-07 Yes Univer s 0.3 mg/0.3 1-10 ity of mL 00:00: [place] injection Medical Branch EPINEPHrine 2020-07 Yes Univer s 0.3 mg/0.3 1-10 ity of mL 00:00: [place] injection Medical Branch EPINEPHrine 2020-07 Yes Univer s 0.3 mg/0.3 1-10 ity of mL 00:00: [place] injection Medical Branch EPINEPHrine 2020-07 Yes Univer s 0.3 mg/0.3 1-10 ity of mL 00:00: [place] injection Medical Branch EPINEPHrine 2020-07 Yes Univer s 0.3 mg/0.3 1-10 ity of mL 00:00: [place] injection Medical Branch EPINEPHrine 2020-07 Yes Univer s 0.3 mg/0.3 1-10 ity of mL 00:00: [place] injection Medical Branch EPINEPHrine 2020-07 Yes Univer s 0.3 mg/0.3 1-10 ity of mL 00:00: [place] injection Medical Branch EPINEPHrine 2020-07 Yes Univer s 0.3 mg/0.3 1-10 ity of mL 00:00: [place] injection Medical Branch EPINEPHrine 2020-07 Yes Univer s 0.3 mg/0.3 1-10 ity of mL 00:00: [place] injection Medical Branch EPINEPHrine 2020-07 Yes Univer s 0.3 mg/0.3 1-10 ity of mL 00:00: [place] injection Medical Branch EPINEPHrine 2020-07 Yes Univer s 0.3 mg/0.3 1-10 ity of mL 00:00: [place] injection Medical Branch EPINEPHrine 2020-07 Yes Univer s 0.3 mg/0.3 1-10 ity of mL 00:00: [place] injection Medical Branch EPINEPHrine 2020-07 Yes Univer s 0.3 mg/0.3 1-10 ity of mL 00:00: [place] injection Medical Branch EPINEPHrine 2020-07 Yes Univer s 0.3 mg/0.3 1-10 ity of mL 00:00: [place] injection Medical Branch EPINEPHrine 2020-07 Yes Univer s 0.3 mg/0.3 1-10 ity of mL 00:00: [place] injection Medical Branch EPINEPHrine 2020-07 Yes Univer s 0.3 mg/0.3 1-10 ity of mL 00:00: [place] injection Medical Branch EPINEPHrine 2020-07 Yes Univer s 0.3 mg/0.3 1-10 ity of mL 00:00: [place] injection Medical Branch EPINEPHrine 2020-07 Yes Univer s 0.3 mg/0.3 1-10 ity of mL 00:00: [place] injection Medical Branch EPINEPHrine 2020-07 Yes Univer s 0.3 mg/0.3 1-10 ity of mL 00:00: [place] injection Medical Branch EPINEPHrine 2020-07 Yes Univer s 0.3 mg/0.3 1-10 ity of mL 00:00: [place] injection Medical Branch EPINEPHrine 2020-07 Yes Univer s 0.3 mg/0.3 1-10 ity of mL 00:00: [place] injection Medical Branch EPINEPHrine 2020-07 Yes Univer s 0.3 mg/0.3 1-10 ity of mL 00:00: [place] injection Medical Branch EPINEPHrine 2020-07 Yes Univer s 0.3 mg/0.3 1-10 ity of mL 00:00: [place] injection Medical Branch EPINEPHrine 2020-07 Yes Univer s 0.3 mg/0.3 1-10 ity of mL 00:00: [place] injection 00 Medical Branch EPINEPHrine 2020-07 Yes Univer s 0.3 mg/0.3 1-10 ity of mL 00:00: [place] injection 00 Medical Branch Immunizations Ordered Filled Immunization Date Status Comments [facility] e Immunization Name Name Influenza Virus 2022-04-15 Completed [facility] y of Vaccine Quad IM, 00:00:00 [place] Me [facility]ical Preserv and ABX Branch Free 6 MO-64 YRS Influenza Virus 2022-04-15 Completed [facility] y of Vaccine Quad IM, 00:00:00 [place] [facility]ical Preserv and ABX Branch Free 6 MO-64 YRS Influenza Virus 2022-04-15 Completed [facility] y of Vaccine Quad IM, 00:00:00 [place] Me [facility]ical Preserv and ABX Branch Free 6 MO-64 YRS Influenza Virus 2022-04-15 Completed [facility] y of Vaccine Quad IM, 00:00:00 [place] [facility] Preserv and ABX Branch Free 6 MO-64 YRS Influenza Virus 2022-04-15 Completed [facility] y of Vaccine Quad IM, 00:00:00 [place] [facility]ical Preserv and ABX Branch Free 6 MO-64 YRS Influenza Virus 2022-04-15 Completed [facility] y of Vaccine Quad IM, 00:00:00 [place] [facility] Preserv and ABX Branch Free 6 MO-64 YRS Influenza Virus 2022-04-15 Completed [facility] y of Vaccine Quad IM, 00:00:00 [place] [facility]ical Preserv and ABX Branch Free 6 MO-64 YRS Influenza Virus 2022-04-15 Completed [facility]it y of Vaccine Quad IM, 00:00:00 [place] Me [facility]ical Preserv and ABX Branch Free 6 MO-64 YRS Influenza Virus 2022-04-15 Completed [facility] y of Vaccine Quad IM, 00:00:00 [place] Me [facility]ical Preserv and ABX Branch Free 6 MO-64 YRS Influenza Virus 2022-04-15 Completed [facility] y of Vaccine Quad IM, 00:00:00 [place] Me [facility]ical Preserv and ABX Branch Free 6 MO-64 YRS Influenza Virus 2022-04-15 Completed [facility]it y of Vaccine Quad IM, 00:00:00 [place] [facility]ical Preserv and ABX Branch Free 6 MO-64 YRS Influenza Virus 2022-04-15 Completed [facility]it y of Vaccine Quad IM, 00:00:00 [place] [facility]ical Preserv and ABX Branch Free 6 MO-64 YRS Influenza Virus 2022-04-15 Completed [facility]it y of Vaccine Quad IM, 00:00:00 [place] Me dical Preserv and ABX Branch Free 6 MO-64 YRS Influenza Virus 2022-04-15 Completed [facility]it y of Vaccine Quad IM, 00:00:00 [place] Me dical Preserv and ABX Branch Free 6 MO-64 YRS Influenza Virus 2022-04-15 Completed [facility]it y of Vaccine Quad IM, 00:00:00 [place] Me dical Preserv and ABX Branch Free 6 MO-64 YRS Influenza Virus 2022-04-15 Completed [facility]it y of Vaccine Quad IM, 00:00:00 [place] Me dical Preserv and ABX Branch Free 6 MO-64 YRS Influenza Virus 2022-04-15 Completed [facility]it y of Vaccine Quad IM, 00:00:00 [place] [facility]ical Preserv and ABX Branch Free 6 MO-64 YRS Influenza Virus 2022-04-15 Completed [facility]it y of Vaccine Quad IM, 00:00:00 [place] Me dical Preserv and ABX Branch Free 6 MO-64 YRS Influenza Virus 2022-04-15 Completed [facility] y of Vaccine Quad IM, 00:00:00 [place] Me dical Preserv and ABX Branch Free 6 MO-64 YRS Influenza Virus 2022-04-15 Completed [facility]it y of Vaccine Quad IM, 00:00:00 [place] Me dical Preserv and ABX Branch Free 6 MO-64 YRS Influenza Virus 2022-04-15 Completed [facility]it y of Vaccine Quad IM, 00:00:00 [place] Me [facility]ical Preserv and ABX Branch Free 6 MO-64 YRS Influenza Virus 2022-04-15 Completed [facility]it y of Vaccine Quad IM, 00:00:00 [place] Me dical Preserv and ABX Branch Free 6 MO-64 YRS Influenza Virus 2022-04-15 Completed [facility]it y of Vaccine Quad IM, 00:00:00 [place] Me dical Preserv and ABX Branch Free 6 MO-64 YRS Influenza Virus 2022-04-15 Completed [facility]it y of Vaccine Quad IM, 00:00:00 [place] [facility] dical Preserv and ABX Branch Free 6 MO-64 YRS Influenza Virus 2022-04-15 Completed [facility]it y of Vaccine Quad IM, 00:00:00 [place] Me dical Preserv and ABX Branch Free 6 MO-64 YRS Influenza Virus 2022-04-15 Completed Universit y of Vaccine Quad IM, 00:00:00 [place] Me dical Preserv and ABX Branch Free 6 MO-64 YRS Influenza Virus 2022-04-15 Completed Universit y of Vaccine Quad IM, 00:00:00 [place] Me dical Preserv and ABX Branch Free 6 MO-64 YRS Influenza Virus 2022-04-15 Completed Universit y of Vaccine Quad IM, 00:00:00 [place] Me dical Preserv and ABX Branch Free 6 MO-64 YRS Influenza Virus 2022-04-15 Completed [facility]it y of Vaccine Quad IM, 00:00:00 [place] Me dical Preserv and ABX Branch Free 6 MO-64 YRS Influenza Virus 2022-04-15 Completed [facility]it y of Vaccine Quad IM, 00:00:00 [place] Me dical Preserv and ABX Branch Free 6 MO-64 YRS Influenza Virus 2022-04-15 Completed [facility]it y of Vaccine Quad IM, 00:00:00 [place] [facility] dical Preserv and ABX Branch Free 6 MO-64 YRS Influenza Virus 2022-04-15 Completed [facility]it y of Vaccine Quad IM, 00:00:00 [place] Me dical Preserv and ABX Branch Free 6 MO-64 YRS Influenza Virus 2022-04-15 Completed [facility]it y of Vaccine Quad IM, 00:00:00 [place] [facility]ical Preserv and ABX Branch Free 6 MO-64 YRS Influenza Virus 2022-04-15 Completed [facility]it y of Vaccine Quad IM, 00:00:00 [place] [facility] dical Preserv and ABX Branch Free 6 MO-64 YRS Influenza Virus 2022-04-15 Completed [facility]it y of Vaccine Quad IM, 00:00:00 [place] [facility]ical Preserv and ABX Branch Free 6 MO-64 YRS Influenza Virus 2022-04-15 Completed [facility]it y of Vaccine Quad IM, 00:00:00 [place] [facility] Preserv and ABX Branch Free 6 MO-64 YRS SARS-COV-2 COVID-19 2020-10-26 Completed Unive rsity of PFIZER VACCINE 00:00:00 [place] [facility] Branch SARS-COV-2 COVID-19 2020-10-26 Completed Unive rsity of PFIZER VACCINE 00:00:00 [facility] Branch SARS-COV-2 COVID-19 2020-10-26 Completed Unive rsity of PFIZER VACCINE 00:00:00 [place] [facility] Branch SARS-COV-2 COVID-19 2020-10-26 Completed Unive rsity of PFIZER VACCINE 00:00:00 [facility] SARS-COV-2 COVID-19 2020-10-26 Completed Unive rsity of PFIZER VACCINE 00:00:00 [facility] SARS-COV-2 COVID-19 2020-10-26 Completed Unive rsity of PFIZER VACCINE 00:00:00 [facility] SARS-COV-2 COVID-19 2020-10-26 Completed Unive rsity of PFIZER VACCINE 00:00:00 [facility] SARS-COV-2 COVID-19 2020-10-26 Completed Unive rsity of PFIZER VACCINE 00:00:00 [facility] SARS-COV-2 COVID-19 2020-10-26 Completed Unive rsity of PFIZER VACCINE 00:00:00 [facility] SARS-COV-2 COVID-19 2020-10-26 Completed Unive rsity of PFIZER VACCINE 00:00:00 [facility] SARS-COV-2 COVID-19 2020-10-26 Completed Unive rsity of PFIZER VACCINE 00:00:00 [facility] SARS-COV-2 COVID-19 2020-10-26 Completed Unive rsity of PFIZER VACCINE 00:00:00 [facility] SARS-COV-2 COVID-19 2020-10-26 Completed Unive rsity of PFIZER VACCINE 00:00:00 [facility] SARS-COV-2 COVID-19 2020-10-26 Completed Unive rsity of PFIZER VACCINE 00:00:00 [facility] SARS-COV-2 COVID-19 2020-10-26 Completed Unive rsity of PFIZER VACCINE 00:00:00 [facility] SARS-COV-2 COVID-19 2020-10-26 Completed Unive rsity of PFIZER VACCINE 00:00:00 [facility] SARS-COV-2 COVID-19 2020-10-26 Completed Unive rsity of PFIZER VACCINE 00:00:00 [facility] SARS-COV-2 COVID-19 2020-10-26 Completed Unive rsity of PFIZER VACCINE 00:00:00 [facility] SARS-COV-2 COVID-19 2020-10-26 Completed Unive rsity of PFIZER VACCINE 00:00:00 [place] [facility] Branch SARS-COV-2 COVID-19 2020-10-26 Completed Unive rsity of PFIZER VACCINE 00:00:00 [facility] SARS-COV-2 COVID-19 2020-10-26 Completed Unive rsity of PFIZER VACCINE 00:00:00 [facility] SARS-COV-2 COVID-19 2020-10-26 Completed Unive rsity of PFIZER VACCINE 00:00:00 [facility] SARS-COV-2 COVID-19 2020-10-26 Completed Unive rsity of PFIZER VACCINE 00:00:00 [facility] SARS-COV-2 COVID-19 2020-10-26 Completed Unive rsity of PFIZER VACCINE 00:00:00 [facility] SARS-COV-2 COVID-19 2020-10-26 Completed Unive rsity of PFIZER VACCINE 00:00:00 [facility] SARS-COV-2 COVID-19 2020-10-26 Completed Unive rsity of PFIZER VACCINE 00:00:00 [facility] SARS-COV-2 COVID-19 2020-10-26 Completed Unive rsity of PFIZER VACCINE 00:00:00 [facility] SARS-COV-2 COVID-19 2020-10-26 Completed Unive rsity of PFIZER VACCINE 00:00:00 [facility] SARS-COV-2 COVID-19 2020-10-26 Completed Unive rsity of PFIZER VACCINE 00:00:00 [facility] SARS-COV-2 COVID-19 2020-10-26 Completed [facility] PFIZER VACCINE 00:00:00 [facility] SARS-COV-2 COVID-19 2020-10-26 Completed [facility] PFIZER VACCINE 00:00:00 [facility] SARS-COV-2 COVID-19 2020-10-26 Completed [facility] PFIZER VACCINE 00:00:00 [facility] SARS-COV-2 COVID-19 2020-10-26 Completed [facility] PFIZER VACCINE 00:00:00 [facility] SARS-COV-2 COVID-19 2020-10-26 Completed [facility] PFIZER VACCINE 00:00:00 [facility] SARS-COV-2 COVID-19 2020-10-26 Completed [facility] PFIZER VACCINE 00:00:00 [facility] SARS-COV-2 COVID-19 2020-10-26 Completed [facility] PFIZER VACCINE 00:00:00 [facility] SARS-COV-2 COVID-19 2020-10-26 Completed [facility] of PFIZER VACCINE 00:00:00 [facility] SARS-COV-2 COVID-19 2020-10-26 Completed [facility] PFIZER VACCINE 00:00:00 [facility] SARS-COV-2 COVID-19 2020-10-05 Completed [facility] PFIZER VACCINE 00:00:00 [facility] SARS-COV-2 COVID-19 2020-10-05 Completed [facility] PFIZER VACCINE 00:00:00 [facility] SARS-COV-2 COVID-19 2020-10-05 Completed [facility] PFIZER VACCINE 00:00:00 [facility] SARS-COV-2 COVID-19 2020-10-05 Completed [facility] PFIZER VACCINE 00:00:00 [facility] SARS-COV-2 COVID-19 2020-10-05 Completed [facility] PFIZER VACCINE 00:00:00 [facility] SARS-COV-2 COVID-19 2020-10-05 Completed [facility] PFIZER VACCINE 00:00:00 [facility] SARS-COV-2 COVID-19 2020-10-05 Completed [facility] PFIZER VACCINE 00:00:00 [facility] SARS-COV-2 COVID-19 2020-10-05 Completed [facility] PFIZER VACCINE 00:00:00 [facility] SARS-COV-2 COVID-19 2020-10-05 Completed [facility] PFIZER VACCINE 00:00:00 [facility] SARS-COV-2 COVID-19 2020-10-05 Completed [facility] PFIZER VACCINE 00:00:00 [facility] SARS-COV-2 COVID-19 2020-10-05 Completed [facility] PFIZER VACCINE 00:00:00 [facility] SARS-COV-2 COVID-19 2020-10-05 Completed [facility] PFIZER VACCINE 00:00:00 [facility] SARS-COV-2 COVID-19 2020-10-05 Completed [facility] PFIZER VACCINE 00:00:00 [facility] SARS-COV-2 COVID-19 2020-10-05 Completed [facility] PFIZER VACCINE 00:00:00 [facility] SARS-COV-2 COVID-19 2020-10-05 Completed [facility] PFIZER VACCINE 00:00:00 [facility] SARS-COV-2 COVID-19 2020-10-05 Completed [facility] PFIZER VACCINE 00:00:00 [facility] SARS-COV-2 COVID-19 2020-10-05 Completed [facility] PFIZER VACCINE 00:00:00 [facility] SARS-COV-2 COVID-19 2020-10-05 Completed [facility] PFIZER VACCINE 00:00:00 [facility] SARS-COV-2 COVID-19 2020-10-05 Completed [facility] PFIZER VACCINE 00:00:00 [facility] SARS-COV-2 COVID-19 2020-10-05 Completed [facility] PFIZER VACCINE 00:00:00 [facility] SARS-COV-2 COVID-19 2020-10-05 Completed [facility] PFIZER VACCINE 00:00:00 [facility] SARS-COV-2 COVID-19 2020-10-05 Completed [facility] PFIZER VACCINE 00:00:00 [facility] SARS-COV-2 COVID-19 2020-10-05 Completed [facility] PFIZER VACCINE 00:00:00 [facility] SARS-COV-2 COVID-19 2020-10-05 Completed [facility] PFIZER VACCINE 00:00:00 [facility] SARS-COV-2 COVID-19 2020-10-05 Completed [facility] PFIZER VACCINE 00:00:00 [facility] SARS-COV-2 COVID-19 2020-10-05 Completed [facility] PFIZER VACCINE 00:00:00 [facility] SARS-COV-2 COVID-19 2020-10-05 Completed [facility] PFIZER VACCINE 00:00:00 [facility] SARS-COV-2 COVID-19 2020-10-05 Completed [facility] PFIZER VACCINE 00:00:00 [facility] SARS-COV-2 COVID-19 2020-10-05 Completed [facility] PFIZER VACCINE 00:00:00 [facility] SARS-COV-2 COVID-19 2020-10-05 Completed [facility] PFIZER VACCINE 00:00:00 [facility] SARS-COV-2 COVID-19 2020-10-05 Completed [facility] PFIZER VACCINE 00:00:00 [facility] SARS-COV-2 COVID-19 2020-10-05 Completed [facility] PFIZER VACCINE 00:00:00 [facility] SARS-COV-2 COVID-19 2020-10-05 Completed [facility] PFIZER VACCINE 00:00:00 [facility] SARS-COV-2 COVID-19 2020-10-05 Completed [facility] PFIZER VACCINE 00:00:00 [facility] SARS-COV-2 COVID-19 2020-10-05 Completed [facility] PFIZER VACCINE 00:00:00 [facility] SARS-COV-2 COVID-19 2020-10-05 Completed [facility] PFIZER VACCINE 00:00:00 [facility] SARS-COV-2 COVID-19 2020-10-05 Completed [facility] PFIZER VACCINE 00:00:00 [facility] SARS-COV-2 COVID-19 2020-10-05 Completed [facility] PFIZER VACCINE 00:00:00 [facility] Pneumococcal 2020-05-30 Completed [facility] Polysaccharide, 00:00:00 [facility] PPSV23 (PNEUMOVAX) [facility] Influenza Virus 2020-05-30 Completed [facility] Vaccine Quad .5 mL 00:00:[address] [facility] IM 6+ MO [place] Pneumococcal 2020-05-30 Completed [facility] f Polysaccharide, 00:00:00 [facility] PPSV23 (PNEUMOVAX) [facility] Influenza Virus 2020-05-30 Completed [facility] Vaccine Quad .5 mL 00:00:[address] [facility] IM 6+ MO [facility] Pneumococcal 2020-05-30 Completed [facility] f Polysaccharide, 00:00:00 [facility] PPSV23 (PNEUMOVAX) [facility] Influenza Virus 2020-05-30 Completed [facility] Vaccine Quad .5 mL 00:00:00 [facility] IM 6+ MO [facility] Pneumococcal 2020-05-30 Completed [facility] f Polysaccharide, 00:00:00 [facility] PPSV23 (PNEUMOVAX) [facility] Influenza Virus 2020-05-30 Completed [facility] Vaccine Quad .5 mL 00:00:00 [facility] IM 6+ MO [facility] Pneumococcal 2020-05-30 Completed [facility] f Polysaccharide, 00:00:00 [facility] PPSV23 (PNEUMOVAX) [facility] Influenza Virus 2020-05-30 Completed [facility] Vaccine Quad .5 mL 00:00:00 [facility] IM 6+ MO [facility] Pneumococcal 2020-05-30 Completed [facility] f Polysaccharide, 00:00:00 [facility] PPSV23 (PNEUMOVAX) [facility] Influenza Virus 2020-05-30 Completed [facility] Vaccine Quad .5 mL 00:00:00 [facility] IM 6+ MO [facility] Pneumococcal 2020-05-30 Completed [facility] f Polysaccharide, 00:00:00 [facility] PPSV23 (PNEUMOVAX) [facility] Influenza Virus 2020-05-30 Completed [facility] Vaccine Quad .5 mL 00:00:00 [facility] IM 6+ MO [facility] Pneumococcal 2020-05-30 Completed [facility] f Polysaccharide, 00:00:00 [facility] PPSV23 (PNEUMOVAX) [facility] Influenza Virus 2020-05-30 Completed [facility] Vaccine Quad .5 mL 00:00:00 [facility] IM 6+ MO [facility] Pneumococcal 2020-05-30 Completed [facility] f Polysaccharide, 00:00:00 [facility] PPSV23 (PNEUMOVAX) [facility] Influenza Virus 2020-05-30 Completed [facility] Vaccine Quad .5 mL 00:00:00 [facility] IM 6+ MO [facility] Pneumococcal 2020-05-30 Completed [facility] f Polysaccharide, 00:00:00 [facility] PPSV23 (PNEUMOVAX) [facility] Influenza Virus 2020-05-30 Completed [facility] Vaccine Quad .5 mL 00:00:00 [facility] IM 6+ MO [facility] Pneumococcal 2020-05-30 Completed [facility] f Polysaccharide, 00:00:00 [facility] PPSV23 (PNEUMOVAX) [facility] Influenza Virus 2020-05-30 Completed [facility] Vaccine Quad .5 mL 00:00:00 [facility] IM 6+ MO [facility] Pneumococcal 2020-05-30 Completed [facility] f Polysaccharide, 00:00:00 [facility] PPSV23 (PNEUMOVAX) [facility] Influenza Virus 2020-05-30 Completed [facility] Vaccine Quad .5 mL 00:00:00 [facility] IM 6+ MO [facility] Pneumococcal 2020-05-30 Completed [facility] f Polysaccharide, 00:00:00 [facility] PPSV23 (PNEUMOVAX) [facility] Influenza Virus 2020-05-30 Completed [facility] Vaccine Quad .5 mL 00:00:00 [facility] IM 6+ MO [facility] Pneumococcal 2020-05-30 Completed [facility] f Polysaccharide, 00:00:00 [facility] PPSV23 (PNEUMOVAX) [facility] Influenza Virus 2020-05-30 Completed [facility] Vaccine Quad .5 mL 00:00:00 [facility] IM 6+ MO [facility] Pneumococcal 2020-05-30 Completed [facility] f Polysaccharide, 00:00:00 [facility] PPSV23 (PNEUMOVAX) [facility] Influenza Virus 2020-05-30 Completed [facility] Vaccine Quad .5 mL 00:00:00 [facility] IM 6+ MO [facility] Pneumococcal 2020-05-30 Completed [facility] f Polysaccharide, 00:00:00 [facility] PPSV23 (PNEUMOVAX) [facility] Influenza Virus 2020-05-30 Completed [facility] Vaccine Quad .5 mL 00:00:00 [facility] IM 6+ MO [facility] Pneumococcal 2020-05-30 Completed [facility] f Polysaccharide, 00:00:00 [facility] PPSV23 (PNEUMOVAX) [facility] Influenza Virus 2020-05-30 Completed [facility] Vaccine Quad .5 mL 00:00:00 [facility] IM 6+ MO [facility] Pneumococcal 2020-05-30 Completed [facility] f Polysaccharide, 00:00:00 [facility] PPSV23 (PNEUMOVAX) [facility] Influenza Virus 2020-05-30 Completed [facility] Vaccine Quad .5 mL 00:00:00 [facility] IM 6+ MO [facility] Pneumococcal 2020-05-30 Completed [facility] f Polysaccharide, 00:00:00 [facility] PPSV23 (PNEUMOVAX) [facility] Influenza Virus 2020-05-30 Completed [facility] Vaccine Quad .5 mL 00:00:00 [facility] IM 6+ MO [facility] Pneumococcal 2020-05-30 Completed [facility] o f Polysaccharide, 00:00:00 [facility] PPSV23 (PNEUMOVAX) Branch Influenza Virus 2020-05-30 Completed [facility] Vaccine Quad .5 mL 00:00:00 [facility] IM 6+ MO [facility] Pneumococcal 2020-05-30 Completed [facility] o f Polysaccharide, 00:00:00 [facility] PPSV23 (PNEUMOVAX) Branch Influenza Virus 2020-05-30 Completed [facility] Vaccine Quad .5 mL 00:00:00 [facility] 6+ MO [facility] Pneumococcal 2020-05-30 Completed [facility] o f Polysaccharide, 00:00:00 [facility] PPSV23 (PNEUMOVAX) Branch Influenza Virus 2020-05-30 Completed [facility] Vaccine Quad .5 mL 00:00:00 [facility] IM 6+ MO [facility] Pneumococcal 2020-05-30 Completed [facility] o f Polysaccharide, 00:00:00 [facility] PPSV23 (PNEUMOVAX) Branch Influenza Virus 2020-05-30 Completed [facility] Vaccine Quad .5 mL 00:00:00 [facility] IM 6+ MO [facility] Pneumococcal 2020-05-30 Completed [facility] f Polysaccharide, 00:00:00 [facility] PPSV23 (PNEUMOVAX) Branch Influenza Virus 2020-05-30 Completed [facility] Vaccine Quad .5 mL 00:00:00 [facility] IM 6+ MO [facility] Pneumococcal 2020-05-30 Completed [facility] o f Polysaccharide, 00:00:00 [facility] PPSV23 (PNEUMOVAX) Branch Influenza Virus 2020-05-30 Completed [facility] Vaccine Quad .5 mL 00:00:00 [facility] IM 6+ MO [facility] Pneumococcal 2020-05-30 Completed [facility] f Polysaccharide, 00:00:00 [facility] PPSV23 (PNEUMOVAX) Branch Influenza Virus 2020-05-30 Completed [facility] Vaccine Quad .5 mL 00:00:00 [facility] IM 6+ MO [facility] Pneumococcal 2020-05-30 Completed [facility] o f Polysaccharide, 00:00:00 [facility] PPSV23 (PNEUMOVAX) Branch Influenza Virus 2020-05-30 Completed [facility] Vaccine Quad .5 mL 00:00:00 [facility] 6+ MO [facility] Pneumococcal 2020-05-30 Completed [facility] o f Polysaccharide, 00:00:00 [facility] PPSV23 (PNEUMOVAX) Branch Influenza Virus 2020-05-30 Completed [facility] Vaccine Quad .5 mL 00:00:00 [facility] IM 6+ MO [facility] Pneumococcal 2020-05-30 Completed [facility] o f Polysaccharide, 00:00:00 [facility] PPSV23 (PNEUMOVAX) Branch Influenza Virus 2020-05-30 Completed [facility] Vaccine Quad .5 mL 00:00:00 [facility] 6+ MO [facility] Pneumococcal 2020-05-30 Completed [facility] o f Polysaccharide, 00:00:00 [facility] PPSV23 (PNEUMOVAX) Branch Influenza Virus 2020-05-30 Completed [facility] Vaccine Quad .5 mL 00:00:00 [facility] 6+ MO [facility] Pneumococcal 2020-05-30 Completed [facility] o f Polysaccharide, 00:00:00 [facility] PPSV23 (PNEUMOVAX) [facility] Influenza Virus 2020-05-30 Completed [facility] Vaccine Quad .5 mL 00:00:00 [facility] 6+ MO [facility] Pneumococcal 2020-05-30 Completed [facility] o f Polysaccharide, 00:00:00 [facility] PPSV23 (PNEUMOVAX) Branch Influenza Virus 2020-05-30 Completed [facility] Vaccine Quad .5 mL 00:00:00 [facility] 6+ MO [facility] Pneumococcal 2020-05-30 Completed [facility] o f Polysaccharide, 00:00:00 [facility] PPSV23 (PNEUMOVAX) [facility] Influenza Virus 2020-05-30 Completed [facility] Vaccine Quad .5 mL 00:00:00 [facility] 6+ MO [facility] Pneumococcal 2020-05-30 Completed [facility] o f Polysaccharide, 00:00:00 [facility] PPSV23 (PNEUMOVAX) Branch Influenza Virus 2020-05-30 Completed [facility] Vaccine Quad .5 mL 00:00:00 [facility] 6+ MO [facility] Pneumococcal 2020-05-30 Completed [facility] o f Polysaccharide, 00:00:00 [facility] PPSV23 (PNEUMOVAX) Branch Influenza Virus 2020-05-30 Completed [facility] Vaccine Quad .5 mL 00:00:00 [facility] IM 6+ MO [facility] Pneumococcal 2020-05-30 Completed [facility] o f Polysaccharide, 00:00:00 [facility] PPSV23 (PNEUMOVAX) Branch Influenza Virus 2020-05-30 Completed [facility] Vaccine Quad .5 mL 00:00:00 [facility] 6+ MO [facility] Pneumococcal 2020-05-30 Completed [facility] o f Polysaccharide, 00:00:00 [place] [facility] PPSV23 (PNEUMOVAX) [facility] Influenza Virus 2020-05-30 Completed [facility] Vaccine Quad .5 mL 00:00:[address] [facility] IM 6+ MO [facility] Pneumococcal 2020-05-30 Completed [facility] o f Polysaccharide, 00:00:00 [place] [facility] PPSV23 (PNEUMOVAX) [facility] Influenza Virus 2020-05-30 Completed [facility] of Vaccine Quad .5 mL 00:00:[address] [facility] IM 6+ MO Branch Td 2020-02-17 Completed [facility] of 00:00:00 [facility] Td 2020-02-17 Completed University of 00:00:00 [facility] Td 2020-02-17 Completed [facility] of 00:00:00 [facility] Td 2020-02-17 Completed [facility] of 00:00:00 [facility] Td 2020-02-17 Completed [facility] of 00:00:00 [facility] Td 2020-02-17 Completed [facility] of 00:00:00 [facility] Td 2020-02-17 Completed [facility] of 00:00:00 [facility] Td 2020-02-17 Completed [facility] of 00:00:00 [facility] Td 2020-02-17 Completed [facility] of 00:00:00 [facility] Td 2020-02-17 Completed [facility] of 00:00:00 [facility] Td 2020-02-17 Completed [facility] of 00:00:00 [facility] Td 2020-02-17 Completed [facility] of 00:00:00 [facility] Td 2020-02-17 Completed [facility] of 00:00:00 [facility] Td 2020-02-17 Completed [facility] of 00:00:00 [facility] Td 2020-02-17 Completed [facility] of 00:00:00 [facility] Td 2020-02-17 Completed [facility] of 00:00:00 [facility] Td 2020-02-17 Completed [facility] of 00:00:00 [facility] Td 2020-02-17 Completed [facility] of 00:00:00 [facility] Td 2020-02-17 Completed [facility] of 00:00:00 [facility] Td 2020-02-17 Completed [facility] of 00:00:00 [facility] Td 2020-02-17 Completed [facility] of 00:00:00 [facility] TD, NOS 2020-02-17 Completed [facility] of 00:00:00 [facility] TD, NOS 2020-02-17 Completed [facility] 00:00:00 [facility] TD, NOS 2020-02-17 Completed [facility] 00:00:00 [facility] TD, NOS 2020-02-17 Completed [facility] 00:00:00 [facility] TD, NOS 2020-02-17 Completed [facility] 00:00:00 [facility] TD, NOS 2020-02-17 Completed [facility] 00:00:00 [facility] TD, NOS 2020-02-17 Completed [facility] 00:00:00 [facility] TD, NOS 2020-02-17 Completed [facility] 00:00:00 [facility] TD, NOS 2020-02-17 Completed [facility] 00:00:00 [facility] TD, NOS 2020-02-17 Completed [facility] 00:00:00 [facility] TD, NOS 2020-02-17 Completed [facility] 00:00:00 [facility] TD, NOS 2020-02-17 Completed [facility] of 00:00:00 [facility] TD, NOS 2020-02-17 Completed [facility] 00:00:00 [facility] TD, NOS 2020-02-17 Completed [facility] 00:00:00 [facility] TD, NOS 2020-02-17 Completed [facility] 00:00:00 [facility] TD, NOS 2020-02-17 Completed [facility] of 00:00:[address] [facility] TD, NOS 2020-02-17 Completed [facility] of 00:00:00 [facility] Influenza Virus 2016-06-05 Completed [facility]it y of Vaccine (3+ yrs) 00:00:00 [facility] Influenza Virus 2016-06-05 Completed [facility] of Vaccine 00:00:00 [facility] Influenza Virus 2016-06-05 Completed [facility] y of Vaccine (3+ yrs) 00:00:00 [facility] Influenza Virus 2016-06-05 Completed [facility] of Vaccine 00:00:00 [facility] Influenza Virus 2016-06-05 Completed [facility] of Vaccine (3+ yrs) 00:00:00 [facility] Influenza Virus 2016-06-05 Completed [facility] of Vaccine 00:00:00 [facility] Influenza Virus 2016-06-05 Completed [facility] of Vaccine (3+ yrs) 00:00:00 [facility] Influenza Virus 2016-06-05 Completed [facility] of Vaccine 00:00:00 [facility] Influenza Virus 2016-06-05 Completed [facility] of Vaccine (3+ yrs) 00:00:00 [facility] Influenza Virus 2016-06-05 Completed [facility] of Vaccine 00:00:00 [facility] Influenza Virus 2016-06-05 Completed [facility] of Vaccine (3+ yrs) 00:00:00 [facility] Influenza Virus 2016-06-05 Completed [facility] of Vaccine 00:00:00 [facility] Influenza Virus 2016-06-05 Completed [facility] of Vaccine (3+ yrs) 00:00:00 [facility] Influenza Virus 2016-06-05 Completed [facility] of Vaccine 00:00:00 [facility] Influenza Virus 2016-06-05 Completed [facility] of Vaccine (3+ yrs) 00:00:00 [facility] Influenza Virus 2016-06-05 Completed [facility] of Vaccine 00:00:00 [facility] Influenza Virus 2016-06-05 Completed [facility] of Vaccine (3+ yrs) 00:00:00 [facility] Influenza Virus 2016-06-05 Completed [facility] of Vaccine 00:00:00 [facility] Influenza Virus 2016-06-05 Completed [facility] of Vaccine (3+ yrs) 00:00:00 [facility] Influenza Virus 2016-06-05 Completed [facility] of Vaccine 00:00:00 [facility] Influenza Virus 2016-06-05 Completed [facility] of Vaccine (3+ yrs) 00:00:00 [facility] Influenza Virus 2016-06-05 Completed [facility] of Vaccine 00:00:00 [facility] Influenza Virus 2016-06-05 Completed [facility] of Vaccine (3+ yrs) 00:00:00 [facility] Influenza Virus 2016-06-05 Completed [facility] of Vaccine 00:00:00 [facility] Influenza Virus 2016-06-05 Completed [facility] of Vaccine (3+ yrs) 00:00:00 [facility] Influenza Virus 2016-06-05 Completed [facility] of Vaccine 00:00:00 [facility] Influenza Virus 2016-06-05 Completed [facility] of Vaccine (3+ yrs) 00:00:00 [facility] Influenza Virus 2016-06-05 Completed [facility] of Vaccine 00:00:00 [facility] Influenza Virus 2016-06-05 Completed [facility] of Vaccine (3+ yrs) 00:00:00 [facility] Influenza Virus 2016-06-05 Completed [facility] of Vaccine 00:00:00 [facility] Influenza Virus 2016-06-05 Completed [facility] of Vaccine (3+ yrs) 00:00:00 [facility] Influenza Virus 2016-06-05 Completed [facility] of Vaccine 00:00:00 [facility] Influenza Virus 2016-06-05 Completed [facility] of Vaccine (3+ yrs) 00:00:00 [facility] Influenza Virus 2016-06-05 Completed [facility] of Vaccine 00:00:00 [facility] Influenza Virus 2016-06-05 Completed [facility] of Vaccine (3+ yrs) 00:00:00 [facility] Influenza Virus 2016-06-05 Completed [facility] of Vaccine 00:00:00 [facility] Influenza Virus 2016-06-05 Completed [facility] of Vaccine (3+ yrs) 00:00:00 [facility] Influenza Virus 2016-06-05 Completed [facility] of Vaccine 00:00:00 [facility] Influenza Virus 2016-06-05 Completed [facility] of Vaccine (3+ yrs) 00:00:00 [facility] Influenza Virus 2016-06-05 Completed [facility] of Vaccine 00:00:00 [facility] Influenza Virus 2016-06-05 Completed [facility] of Vaccine (3+ yrs) 00:00:00 [facility] Influenza Virus 2016-06-05 Completed [facility] of Vaccine 00:00:00 [facility] Influenza Virus 2016-06-05 Completed [facility] of Vaccine (3+ yrs) 00:00:00 [facility] Influenza Virus 2016-06-05 Completed [facility] of Vaccine 00:00:00 [facility] Influenza Virus 2016-06-05 Completed [facility] of Vaccine (3+ yrs) 00:00:00 [facility] Influenza Virus 2016-06-05 Completed [facility] of Vaccine 00:00:00 [facility] Influenza Virus 2016-06-05 Completed [facility] of Vaccine (3+ yrs) 00:00:00 [facility] Influenza Virus 2016-06-05 Completed [facility] of Vaccine 00:00:00 [facility] Influenza Virus 2016-06-05 Completed [facility] of Vaccine (3+ yrs) 00:00:00 [facility] Influenza Virus 2016-06-05 Completed [facility] of Vaccine 00:00:00 [facility] Influenza Virus 2016-06-05 Completed [facility] of Vaccine (3+ yrs) 00:00:00 [facility] Influenza Virus 2016-06-05 Completed [facility] of Vaccine 00:00:00 [facility] Influenza Virus 2016-06-05 Completed [facility] of Vaccine (3+ yrs) 00:00:00 [facility] Influenza Virus 2016-06-05 Completed [facility] of Vaccine 00:00:00 [facility] Influenza Virus 2016-06-05 Completed [facility] of Vaccine (3+ yrs) 00:00:00 [facility] Influenza Virus 2016-06-05 Completed [facility] of Vaccine 00:00:00 [facility] Influenza Virus 2016-06-05 Completed [facility] of Vaccine (3+ yrs) 00:00:00 [facility] Influenza Virus 2016-06-05 Completed [facility] of Vaccine 00:00:00 [facility] Influenza Virus 2016-06-05 Completed [facility] of Vaccine (3+ yrs) 00:00:00 [facility] Influenza Virus 2016-06-05 Completed [facility] of Vaccine 00:00:00 [facility] Influenza Virus 2016-06-05 Completed [facility] of Vaccine (3+ yrs) 00:00:00 [facility] Influenza Virus 2016-06-05 Completed [facility] of Vaccine 00:00:00 [facility] Influenza Virus 2016-06-05 Completed [facility] of Vaccine (3+ yrs) 00:00:00 [facility] Influenza Virus 2016-06-05 Completed [facility] of Vaccine 00:00:00 [facility] Influenza Virus 2016-06-05 Completed [facility] of Vaccine (3+ yrs) 00:00:00 [facility] Influenza Virus 2016-06-05 Completed [facility] of Vaccine 00:00:00 [facility] Influenza Virus 2016-06-05 Completed [facility] Vaccine (3+ yrs) 00:00:00 [facility] Influenza Virus 2016-06-05 Completed [facility] of Vaccine 00:00:00 [facility] Influenza Virus 2016-06-05 Completed [facility] of Vaccine (3+ yrs) 00:00:00 [facility] Influenza Virus 2016-06-05 Completed [facility] of Vaccine 00:00:00 [facility] Influenza Virus 2016-06-05 Completed [facility] of Vaccine (3+ yrs) 00:00:00 [facility] Influenza Virus 2016-06-05 Completed [facility] of Vaccine 00:00:00 [facility] Influenza Virus 2016-06-05 Completed [facility] of Vaccine (3+ yrs) 00:00:00 [facility] Influenza Virus 2016-06-05 Completed [facility] of Vaccine 00:00:00 [facility] Influenza Virus 2016-06-05 Completed [facility] of Vaccine (3+ yrs) 00:00:00 [facility] Influenza Virus 2016-06-05 Completed [facility] y of Vaccine 00:00:00 [facility] TDAP 2016-02-28 Completed University of 00:00:00 [facility] TDAP 2016-02-28 Completed University of 00:00:00 [facility] TDAP 2016-02-28 Completed [facility] of 00:00:00 [facility] TDAP 2016-02-28 Completed University of 00:00:00 [facility] TDAP 2016-02-28 Completed [facility] of 00:00:00 [facility] TDAP 2016-02-28 Completed University of 00:00:00 [facility] TDAP 2016-02-28 Completed [facility] of 00:00:00 [facility] TDAP 2016-02-28 Completed [facility] of 00:00:00 [facility] TDAP 2016-02-28 Completed [facility] of 00:00:00 [facility] TDAP 2016-02-28 Completed [facility] of 00:00:00 [facility] TDAP 2016-02-28 Completed [facility] of 00:00:[address] [facility] TDAP 2016-02-28 Completed University of 00:00:00 [facility] TDAP 2016-02-28 Completed [facility] of 00:00:00 [facility] TDAP 2016-02-28 Completed [facility] of 00:00:00 [facility] TDAP 2016-02-28 Completed [facility] of 00:00:00 [facility] TDAP 2016-02-28 Completed [facility] of 00:00:00 [facility] TDAP 2016-02-28 Completed [facility] of 00:00:00 [facility] TDAP 2016-02-28 Completed [facility] of 00:00:00 [facility] TDAP 2016-02-28 Completed [facility] of 00:00:00 [facility] TDAP 2016-02-28 Completed [facility] of 00:00:00 [facility] TDAP 2016-02-28 Completed [facility] of 00:00:00 [facility] TDAP 2016-02-28 Completed [facility] of 00:00:00 [facility] TDAP 2016-02-28 Completed [facility] of 00:00:00 [facility] TDAP 2016-02-28 Completed [facility] of 00:00:00 [facility] TDAP 2016-02-28 Completed University of 00:00:00 [facility] TDAP 2016-02-28 Completed University of 00:00:00 [facility] TDAP 2016-02-28 Completed [facility] of 00:00:00 [facility] TDAP 2016-02-28 Completed [facility] of 00:00:00 [facility] TDAP 2016-02-28 Completed [facility] of 00:00:00 [facility] TDAP 2016-02-28 Completed [facility] of 00:00:00 [facility] TDAP 2016-02-28 Completed [facility] of 00:00:00 [facility] TDAP 2016-02-28 Completed [facility] of 00:00:00 [facility] TDAP 2016-02-28 Completed [facility] of 00:00:00 [facility] TDAP 2016-02-28 Completed [facility] of 00:00:00 [facility] TDAP 2016-02-28 Completed [facility] of 00:00:00 [facility] TDAP 2016-02-28 Completed [facility] of 00:00:00 [facility] TDAP 2016-02-28 Completed [facility] of 00:00:00 [facility] TDAP 2016-02-28 Completed [facility] of 00:00:00 [facility] Influenza Virus 2015-04-24 Completed [facility] of Vaccine (3+ yrs) 00:00:00 [facility] Influenza Virus 2015-04-24 Completed [facility] of Vaccine 00:00:00 [facility] Influenza Virus 2015-04-24 Completed [facility] of Vaccine (3+ yrs) 00:00:00 [facility] Influenza Virus 2015-04-24 Completed [facility] of Vaccine 00:00:00 [facility] Influenza Virus 2015-04-24 Completed [facility] of Vaccine (3+ yrs) 00:00:00 [facility] Influenza Virus 2015-04-24 Completed [facility] of Vaccine 00:00:00 [facility] Influenza Virus 2015-04-24 Completed [facility] of Vaccine (3+ yrs) 00:00:00 [facility] Influenza Virus 2015-04-24 Completed [facility] of Vaccine 00:00:00 [facility] Influenza Virus 2015-04-24 Completed [facility] of Vaccine (3+ yrs) 00:00:00 [facility] Influenza Virus 2015-04-24 Completed [facility] of Vaccine 00:00:00 [facility] Influenza Virus 2015-04-24 Completed [facility] of Vaccine (3+ yrs) 00:00:00 [facility] Influenza Virus 2015-04-24 Completed [facility] of Vaccine 00:00:00 [facility] Influenza Virus 2015-04-24 Completed [facility] of Vaccine (3+ yrs) 00:00:00 [facility] Influenza Virus 2015-04-24 Completed [facility] of Vaccine 00:00:00 [facility] Influenza Virus 2015-04-24 Completed [facility] of Vaccine (3+ yrs) 00:00:00 [facility] Influenza Virus 2015-04-24 Completed [facility] of Vaccine 00:00:00 [facility] Influenza Virus 2015-04-24 Completed [facility] of Vaccine (3+ yrs) 00:00:00 [facility] Influenza Virus 2015-04-24 Completed [facility] of Vaccine 00:00:00 [facility] Influenza Virus 2015-04-24 Completed [facility] of Vaccine (3+ yrs) 00:00:00 [facility] Influenza Virus 2015-04-24 Completed [facility] of Vaccine 00:00:00 [facility] Influenza Virus 2015-04-24 Completed [facility] of Vaccine (3+ yrs) 00:00:00 [facility] Influenza Virus 2015-04-24 Completed [facility] of Vaccine 00:00:00 [facility] Influenza Virus 2015-04-24 Completed [facility] of Vaccine (3+ yrs) 00:00:00 [facility] Influenza Virus 2015-04-24 Completed [facility] of Vaccine 00:00:00 [facility] Influenza Virus 2015-04-24 Completed [facility] of Vaccine (3+ yrs) 00:00:00 [facility] Influenza Virus 2015-04-24 Completed [facility] of Vaccine 00:00:00 [facility] Influenza Virus 2015-04-24 Completed [facility] of Vaccine (3+ yrs) 00:00:00 [facility] Influenza Virus 2015-04-24 Completed [facility] of Vaccine 00:00:00 [facility] Influenza Virus 2015-04-24 Completed [facility] of Vaccine (3+ yrs) 00:00:00 [facility] Influenza Virus 2015-04-24 Completed [facility] of Vaccine 00:00:00 [facility] Influenza Virus 2015-04-24 Completed [facility] of Vaccine (3+ yrs) 00:00:00 [facility] Influenza Virus 2015-04-24 Completed [facility] of Vaccine 00:00:00 [facility] Influenza Virus 2015-04-24 Completed [facility] of Vaccine (3+ yrs) 00:00:00 [facility] Influenza Virus 2015-04-24 Completed [facility] of Vaccine 00:00:00 [facility] Influenza Virus 2015-04-24 Completed [facility] of Vaccine (3+ yrs) 00:00:00 [facility] Influenza Virus 2015-04-24 Completed [facility] of Vaccine 00:00:00 [facility] Influenza Virus 2015-04-24 Completed [facility] of Vaccine (3+ yrs) 00:00:00 [facility] Influenza Virus 2015-04-24 Completed [facility] of Vaccine 00:00:00 [facility] Influenza Virus 2015-04-24 Completed [facility] of Vaccine (3+ yrs) 00:00:00 [facility] Influenza Virus 2015-04-24 Completed [facility] of Vaccine 00:00:00 [facility] Influenza Virus 2015-04-24 Completed [facility] of Vaccine (3+ yrs) 00:00:00 [facility] Influenza Virus 2015-04-24 Completed [facility] of Vaccine 00:00:00 [facility] Influenza Virus 2015-04-24 Completed [facility] of Vaccine (3+ yrs) 00:00:00 [facility] Influenza Virus 2015-04-24 Completed [facility] of Vaccine 00:00:00 [facility] Influenza Virus 2015-04-24 Completed [facility] of Vaccine (3+ yrs) 00:00:00 [facility] Influenza Virus 2015-04-24 Completed [facility] of Vaccine 00:00:00 [facility] Influenza Virus 2015-04-24 Completed [facility] of Vaccine (3+ yrs) 00:00:00 [facility] Influenza Virus 2015-04-24 Completed [facility] of Vaccine 00:00:00 [facility] Influenza Virus 2015-04-24 Completed [facility] of Vaccine (3+ yrs) 00:00:00 [facility] Influenza Virus 2015-04-24 Completed [facility] of Vaccine 00:00:00 [facility] Influenza Virus 2015-04-24 Completed [facility] of Vaccine (3+ yrs) 00:00:00 [facility] Influenza Virus 2015-04-24 Completed [facility] of Vaccine 00:00:00 [facility] Influenza Virus 2015-04-24 Completed [facility] of Vaccine (3+ yrs) 00:00:00 [facility] Influenza Virus 2015-04-24 Completed [facility] of Vaccine 00:00:00 [facility] Influenza Virus 2015-04-24 Completed [facility] of Vaccine (3+ yrs) 00:00:00 [facility] Influenza Virus 2015-04-24 Completed [facility] of Vaccine 00:00:00 [facility] Influenza Virus 2015-04-24 Completed [facility] of Vaccine (3+ yrs) 00:00:00 [facility] Influenza Virus 2015-04-24 Completed [facility] of Vaccine 00:00:00 [facility] Influenza Virus 2015-04-24 Completed [facility] of Vaccine (3+ yrs) 00:00:00 [facility] Influenza Virus 2015-04-24 Completed [facility] of Vaccine 00:00:00 [facility] Influenza Virus 2015-04-24 Completed [facility] of Vaccine (3+ yrs) 00:00:00 [facility] Influenza Virus 2015-04-24 Completed [facility] of Vaccine 00:00:00 [facility] Influenza Virus 2015-04-24 Completed [facility] of Vaccine (3+ yrs) 00:00:00 [facility] Influenza Virus 2015-04-24 Completed [facility] of Vaccine 00:00:00 [facility] Influenza Virus 2015-04-24 Completed [facility] of Vaccine (3+ yrs) 00:00:00 [facility] Influenza Virus 2015-04-24 Completed [facility] of Vaccine 00:00:00 [facility] Influenza Virus 2015-04-24 Completed [facility] of Vaccine (3+ yrs) 00:00:00 [facility] Influenza Virus 2015-04-24 Completed [facility] of Vaccine 00:00:00 [facility] Influenza Virus 2015-04-24 Completed [facility] of Vaccine (3+ yrs) 00:00:00 [facility] Influenza Virus 2015-04-24 Completed [facility] of Vaccine 00:00:00 [facility] Influenza Virus 2015-04-24 Completed [facility] of Vaccine (3+ yrs) 00:00:00 [facility] Influenza Virus 2015-04-24 Completed [facility] of Vaccine 00:00:00 [facility] Influenza Virus 2015-04-24 Completed [facility] of Vaccine (3+ yrs) 00:00:00 [facility] Influenza Virus 2015-04-24 Completed [facility] of Vaccine 00:00:00 [facility] Influenza Virus 2015-04-24 Completed [facility] of Vaccine (3+ yrs) 00:00:00 [facility] Influenza Virus 2015-04-24 Completed [facility] of Vaccine 00:00:00 [facility] Influenza Virus 2014-03-30 Completed [facility] of Vaccine 00:00:00 [facility] Influenza Virus 2014-03-30 Completed [facility] of Vaccine 00:00:00 [facility] Influenza Virus 2014-03-30 Completed [facility] of Vaccine 00:00:00 [facility] Influenza Virus 2014-03-30 Completed [facility] of Vaccine 00:00:00 [facility] Influenza Virus 2014-03-30 Completed [facility] of Vaccine 00:00:00 [facility] Influenza Virus 2014-03-30 Completed [facility] of Vaccine 00:00:00 [facility] Influenza Virus 2014-03-30 Completed [facility] of Vaccine 00:00:00 [facility] Influenza Virus 2014-03-30 Completed [facility] of Vaccine 00:00:00 [facility] Influenza Virus 2014-03-30 Completed [facility] of Vaccine 00:00:00 [facility] Influenza Virus 2014-03-30 Completed [facility] of Vaccine 00:00:00 [facility] Influenza Virus 2014-03-30 Completed [facility] of Vaccine 00:00:00 [facility] Influenza Virus 2014-03-30 Completed [facility] of Vaccine 00:00:00 [facility] Influenza Virus 2014-03-30 Completed [facility] of Vaccine 00:00:00 [facility] Influenza Virus 2014-03-30 Completed [facility] of Vaccine 00:00:00 [facility] Influenza Virus 2014-03-30 Completed [facility] of Vaccine 00:00:00 [facility] Influenza Virus 2014-03-30 Completed [facility] of Vaccine 00:00:00 [facility] Influenza Virus 2014-03-30 Completed [facility] of Vaccine 00:00:00 [facility] Influenza Virus 2014-03-30 Completed [facility] of Vaccine 00:00:00 [facility] Influenza Virus 2014-03-30 Completed [facility] of Vaccine 00:00:00 [facility] Influenza Virus 2014-03-30 Completed [facility] of Vaccine 00:00:00 [facility] Influenza Virus 2014-03-30 Completed [facility] of Vaccine 00:00:00 [facility] Influenza Virus 2014-03-30 Completed [facility] of Vaccine 00:00:00 [facility] Influenza Virus 2014-03-30 Completed [facility] of Vaccine 00:00:00 [facility] Influenza Virus 2014-03-30 Completed [facility] of Vaccine 00:00:00 [facility] Influenza Virus 2014-03-30 Completed [facility] of Vaccine 00:00:00 [facility] Influenza Virus 2014-03-30 Completed [facility] of Vaccine 00:00:00 [facility] Influenza Virus 2014-03-30 Completed [facility] of Vaccine 00:00:00 [facility] Influenza Virus 2014-03-30 Completed [facility] of Vaccine 00:00:00 [facility] Influenza Virus 2014-03-30 Completed [facility] of Vaccine 00:00:00 [facility] Influenza Virus 2014-03-30 Completed [facility] of Vaccine 00:00:00 [facility] Influenza Virus 2014-03-30 Completed [facility] of Vaccine 00:00:00 [facility] Influenza Virus 2014-03-30 Completed [facility] of Vaccine 00:00:00 [facility] Influenza Virus 2014-03-30 Completed [facility] of Vaccine 00:00:00 [facility] Influenza Virus 2014-03-30 Completed [facility] of Vaccine 00:00:00 [facility] Influenza Virus 2014-03-30 Completed [facility] of Vaccine 00:00:00 [facility] Influenza Virus 2014-03-30 Completed [facility] of Vaccine 00:00:00 [facility] Influenza Virus 2014-03-30 Completed [facility] of Vaccine 00:00:00 [facility] Influenza Virus 2014-03-30 Completed [facility] of Vaccine 00:00:00 [facility] Influenza Virus 2013-05-03 Completed [facility] of Vaccine 00:00:00 [facility] Influenza Virus 2013-05-03 Completed [facility] of Vaccine 00:00:00 [facility] Influenza Virus 2013-05-03 Completed [facility] of Vaccine 00:00:00 [facility] Influenza Virus 2013-05-03 Completed [facility] of Vaccine 00:00:00 [facility] Influenza Virus 2013-05-03 Completed [facility] of Vaccine 00:00:00 [facility] Influenza Virus 2013-05-03 Completed [facility] of Vaccine 00:00:00 [facility] Influenza Virus 2013-05-03 Completed [facility] of Vaccine 00:00:00 [facility] Influenza Virus 2013-05-03 Completed [facility] of Vaccine 00:00:00 [facility] Influenza Virus 2013-05-03 Completed [facility] of Vaccine 00:00:00 [facility] Influenza Virus 2013-05-03 Completed [facility] of Vaccine 00:00:00 [facility] Influenza Virus 2013-05-03 Completed [facility] of Vaccine 00:00:00 [facility] Influenza Virus 2013-05-03 Completed [facility] of Vaccine 00:00:00 [facility] Influenza Virus 2013-05-03 Completed [facility] of Vaccine 00:00:00 [facility] Influenza Virus 2013-05-03 Completed [facility] of Vaccine 00:00:00 [facility] Influenza Virus 2013-05-03 Completed [facility] of Vaccine 00:00:00 [facility] Influenza Virus 2013-05-03 Completed [facility] of Vaccine 00:00:00 [facility] Influenza Virus 2013-05-03 Completed [facility] of Vaccine 00:00:00 [facility] Influenza Virus 2013-05-03 Completed [facility] of Vaccine 00:00:00 [facility] Influenza Virus 2013-05-03 Completed [facility] of Vaccine 00:00:00 [facility] Influenza Virus 2013-05-03 Completed [facility] of Vaccine 00:00:00 [facility] Influenza Virus 2013-05-03 Completed [facility] of Vaccine 00:00:00 [facility] Influenza Virus 2013-05-03 Completed [facility] of Vaccine 00:00:00 [facility] Influenza Virus 2013-05-03 Completed [facility] of Vaccine 00:00:00 [facility] Influenza Virus 2013-05-03 Completed [facility] of Vaccine 00:00:00 [facility] Influenza Virus 2013-05-03 Completed [facility] of Vaccine 00:00:00 [facility] Influenza Virus 2013-05-03 Completed [facility] of Vaccine 00:00:00 [facility] Influenza Virus 2013-05-03 Completed [facility] of Vaccine 00:00:00 [facility] Influenza Virus 2013-05-03 Completed [facility] of Vaccine 00:00:00 [facility] Influenza Virus 2013-05-03 Completed [facility] of Vaccine 00:00:00 [facility] Influenza Virus 2013-05-03 Completed [facility] y of Vaccine 00:00:00 [facility] Influenza Virus 2013-05-03 Completed [facility] y of Vaccine 00:00:00 [facility] Influenza Virus 2013-05-03 Completed [facility] of Vaccine 00:00:00 [facility] Influenza Virus 2013-05-03 Completed [facility] of Vaccine 00:00:00 [facility] Influenza Virus 2013-05-03 Completed [facility] of Vaccine 00:00:00 [facility] Influenza Virus 2013-05-03 Completed [facility] of Vaccine 00:00:00 [facility] Influenza Virus 2013-05-03 Completed [facility] of Vaccine 00:00:00 [facility] Influenza Virus 2013-05-03 Completed [facility] of Vaccine 00:00:00 [facility] Influenza Virus 2013-05-03 Completed [facility] of Vaccine 00:00:00 [facility] Vital Signs Vital Name Observation Time Observation Value Comments Source Systolic blood 2022-08-17 17:21:00 124 mm[Hg] Univer sity of pressure [facility] Diastolic blood 2022-08-17 17:21:00 82 mm[Hg] Unive rsity of pressure [facility] Heart rate 2022-08-17 17:21:00 76 [facility] Body temperature 2022-08-17 17:21:00 36.67 Dariana Univ ersity of [facility] Body height 2022-08-17 17:21:00 175.3 cm [facility] Body weight 2022-08-17 17:21:00 125.193 kg Universi ty [facility] BMI 2022-08-17 17:21:00 40.76 kg/m2 [facility] Oxygen saturation in 2022-08-17 17:21:00 96 /min [facility] blood by [place] [facility] Systolic blood 2022-08-14 16:00:00 136 mm[Hg] Univer sity of pressure [facility] Diastolic blood 2022-08-14 16:00:00 84 mm[Hg] Unive rsity of pressure [facility] Heart rate 2022-08-14 16:00:00 72 /min [facility] Respiratory rate 2022-08-14 16:00:00 16 /min Univ ers[facility] of [facility] Body temperature 2022-08-14 14:17:00 36.72 Dariana Univ ers[facility] of [facility] Body height 2022-08-14 14:17:00 175.3 cm [facility] Body weight 2022-08-14 14:17:00 122.471 kg [facility] BMI 2022-08-14 14:17:00 39.87 kg/m2 [facility] Oxygen saturation in 2022-08-14 14:17:00 99 /min [facility] Arterial blood by [facility] Systolic blood 2022-08-12 21:06:00 121 mm[Hg] Univer sity of pressure [facility] Diastolic blood 2022-08-12 21:06:00 75 mm[Hg] Unive rsity of pressure [facility] Heart rate 2022-08-12 21:06:00 74 /min [facility] Respiratory rate 2022-08-12 21:06:00 12 /min Univ ers[facility] of [facility] Body height 2022-08-12 21:06:00 175.3 cm [facility] Body weight 2022-08-12 21:06:00 123.378 kg [facility] BMI 2022-08-12 21:06:00 40.17 kg/m2 [facility] Oxygen saturation in 2022-08-12 21:06:00 98 /min [facility] blood by [facility] Systolic blood 2022-07-15 21:37:00 132 mm[Hg] Univer sity of pressure [facility] Diastolic blood 2022-07-15 21:37:00 85 mm[Hg] Unive rsity of pressure [facility] Heart rate 2022-07-15 21:32:00 90 /min [facility] Body height 2022-07-15 21:32:00 175.3 cm [facility] Body weight 2022-07-15 21:32:00 123.152 kg [facility] BMI 2022-07-15 21:32:00 40.09 kg/m2 [facility] Oxygen saturation in 2022-07-15 21:32:00 96 /min [facility] blood by [place] [employer] [facility] Body height 2022-07-06 16:04:00 175.3 cm [facility] Body weight 2022-07-06 16:04:00 122.471 kg [facility] BMI 2022-07-06 16:04:00 39.87 kg/m2 [facility] Systolic blood 2022-06-15 14:24:00 117 mm[Hg] Univer sity of pressure [facility] Diastolic blood 2022-06-15 14:24:00 77 mm[Hg] Unive rsity of pressure [facility] Heart rate 2022-06-15 14:24:00 69 /min [facility] Body height 2022-06-15 14:24:00 175.3 cm [facility] Body weight 2022-06-15 14:24:00 123.378 kg [facility] BMI 2022-06-15 14:24:00 40.17 kg/m2 [facility] [place] [facility] Oxygen saturation in 2022-06-15 14:24:00 96 /min [facility] Arterial blood by [place] [employer] james Pulse oximetry Branch Systolic blood 2022-05-15 15:30:00 111 mm[Hg] [facility] [place] [facility] Diastolic blood 2022-05-15 15:30:00 74 mm[Hg] [facility] [place] [facility] Heart rate 2022-05-15 15:30:00 82 /min [facility] [place] [facility] Body height 2022-05-15 15:30:00 175.3 cm [facility] [place] [facility] Body weight 2022-05-15 15:30:00 120.657 kg [facility] [place] [facility] BMI 2022-05-15 15:30:00 39.28 kg/m2 [facility] [place] [facility] Oxygen saturation in 2022-05-15 15:30:00 97 /min [facility] Arterial blood by [facility] james Pulse oximetry Branch Systolic blood 2022-04-15 18:30:00 124 mm[Hg] [facility] [place] [facility] Diastolic blood 2022-04-15 18:30:00 84 mm[Hg] [facility] [place] [facility] Heart rate 2022-04-15 18:30:00 78 /min [facility] [place] [facility] Body temperature 2022-04-15 18:30:00 36.56 Dariana [facility] [place] [facility] Body height 2022-04-15 18:30:00 175.3 cm [facility] [place] [facility] Body weight 2022-04-15 18:30:00 120.203 kg [facility] [place] [facility] BMI 2022-04-15 18:30:00 39.13 kg/m2 [facility] [place] [facility] Oxygen saturation in 2022-04-15 18:30:00 96 /min [facility] Arterial blood by [facility] Pulse oximetry Branch Systolic blood 2022-03-31 18:19:00 132 mm[Hg] [facility] [place] [facility] Diastolic blood 2022-03-31 18:19:00 86 mm[Hg] [facility] [place] [facility] Heart rate 2022-03-31 18:19:00 76 /min [facility] [place] [facility] Body height 2022-03-31 18:19:00 175.3 cm [facility] [place] [facility] Body weight 2022-03-31 18:19:00 120.974 kg [facility] [place] [facility] BMI 2022-03-31 18:19:00 39.38 kg/m2 [facility] [place] [facility] Oxygen saturation in 2022-03-31 18:19:00 98 /min [facility] Arterial blood by [facility] Pulse oximetry Branch Procedures Procedure Date / Time Performed Performing Clinician [facility] e [place] TIME OR 2022-08-14 15:46:17 Britton Yanez [facility] (NON-REPORTABLE) Medical Branch ASSIGNMENT OF BENEFITS 2022-05-21 14:24:22 Doctor Unassigned, No [facility] Name [facility] FLU VACC (), 2022-04-15 18:48:46 [facility] [place] 6 MO-64 YRS, .5ML, IM, Medical B ranch QUAD (FLUCELVAX) Encounters Start End Encounter Admission Attending Care Care Encounter Source Date/Time Date/Time Type Type Clinicians Facility Department ID 2021-05-20 Emergency [facility] [id number] Univers 09:37:11 jacquie [facility] 2022-09-15 2022-09-15 Outpatient R KATIUSKA [facility] [id number] Univers 08:30:00 08:30:00 REMY dhillon [facility] 2022-09-03 2022-09-03 Outpatient R KATIUSKA [facility] [id number] Univers 13:00:00 13:00:00 REMY dhillon [facility] 2022-08-18 2022-08-18 Telephone [facility] 1..532.330 [id number] Univers 00:00:00 00:00:00 Britton Sharp MULTISPEC 350.1.13.10 ity of [place] 4.2.7.2.686 [facility] [id number] [facility] AND [address] DIABETES CLINIC 2022-08-17 2022-08-17 Office [facility] 1..840.114 [id number] Univers 11:30:00 12:00:41 Visit [facility] 350.1.13.10 it y of [place] 4.2.7.2.686 Geoff as KAVIN?BLEA [id number] [address] MEDICAL OFFICE BUILDING 2022-08-17 2022-08-17 Outpatient R KATIUSKA [facility] [id number] Univers 11:30:00 11:30:00 REMY dhillon [facility] 2022-08-17 2022-08-17 Telephone [facility] .2.964.954 [id number] Univers 00:00:00 00:00:00 Remy [facility] 350.1.13.10 it y of [place] 4.2.7.2.686 Geoff as KAVIN?BLEA [id number] [address] MEDICAL OFFICE BUILDING 2022-08-14 2022-08-14 Outpatient R RENATA [facility] [id number] Univers 09:07:14 23:59:00 BRITTON dhillon [facility] 2022-08-14 2022-08-14 [facility] 1.2.840.114 [id number] Univers 09:07:14 23:59:00 Encounter Britton LEYVA 350.1.13.10 it[place] [id number] [facility] AND [place] [address] [facility] 2022-08-14 2022-08-14 Office [facility] 1.2.840.114 [id number] Univers 09:00:00 09:30:00 Visit Britton LEYVA 350.1.13.10 it[place] [id number] [facility] AND [place] [address] [facility] 2022-08-13 2022-08-13 Telephone [facility] 1.2.100.618 [id number] Univers 00:00:00 00:00:00 Britton GREENPEC 350.1.13.10 it[place] [id number] [facility] AND [place] [address] [facility] 2022-08-12 2022-08-12 Office [facility] 1.2.840.114 [id number] Univers 16:00:00 16:00:00 Visit Britton LEYVA 350.1.13.10 it[place] [id number] [facility] AND [place] [address] [facility] 2022-08-12 2022-08-12 [facility] [id number] Univers 16:00:00 15:49:06 BRITTON dhillon [facility] 2022-07-15 2022-07-15 Outpatient R KATIUSKA [facility] [id number] Univers 15:30:00 16:01:06 REMY dhillon [facility] 2022-07-15 2022-07-15 Office [facility] 1.2.840.114 [id number] Univers 15:30:00 16:01:06 Visit Remy HEALTH 350.1.13.10 it y of [place] 4.2.7.2.686 Geoff as KAVIN?BLEA [id number] [address] OFFICE [facility] 2022-07-15 2022-07-15 Telephone Katiuska [facility] 1.2.236.305 [id number] Univers 00:00:00 00:00:00 Remy HEALTH 350.1.13.10 it y of [place] 4.2.7.2.686 Geoff as KAVIN?BLEA [id number] [address] OFFICE [facility] 2022-07-14 2022-07-14 Outpatient R KATIUSKA [facility] [id number] Univers 13:30:00 13:30:00 REMY dhillon [facility] 2022-07-07 2022-07-07 Telephone [facility] 1.2.840.114 [id number] Univers 00:00:00 00:00:00 HEALTH 350.1.13.10 it y of [place].2.[place] [id number] [address] OFFICE BUILDING 2022-07-06 2022-07-06 Office Kai Davidson [facility] 1.2.840.114 [id number] Univers 09:45:00 10:00:00 Visit HEALTH 350.1.13.10 it y [place].2.[place] [id number] [address] OFFICE BUILDING 2022-07-06 2022-07-06 Outpatient R KAI DAVIDSON [facility] [id number] Univers 09:45:00 09:45:00 ity [facility] 2022-06-15 2022-06-15 Outpatient R KATIUSKA [facility] [id number] Univers 08:30:00 08:49:58 REMY dhillon [facility] 2022-06-15 2022-06-15 Office Katiuska [facility] 1.2.840.114 [id number] Univers 08:30:00 08:49:58 Visit Remy HEALTH 350.1.13.10 it y of [place] 4.2.7.2.686 Geoff as KAVIN?BLEA [id number] Nd dicarslan [address] OFFICE [facility] 2022-06-08 2022-06-08 Wilder Beauchamp [facility] 1.2.840.114 [id number] Univers 00:00:00 00:00:00 Joselito HEALTH 350.1.13.10 it y of [place] 4.2.7.2.686 Geoff as KAVIN?BLEA [id number] [address] OFFICE [facility] 2022-06-03 2022-06-03 Outpatient R SUSIE [facility] [id number] Univers 14:30:00 15:16:01 LARISA ity of [facility] 2022-06-03 2022-06-03 Ancillary Kaykay Merrill Brian [facility] 1.2.840 .114 [id number] Univers 14:30:00 15:16:01 Visit Larisa Richards 350.1.13.10 ity [facility] 4.2.7.2.686 [place] [id number] Nd dical NAL 179 [facility] 2022-05-27 2022-05-27 Ancillary Kaykay Merrill Brian [facility] 1.2.840 .114 [id number] Univers 14:30:00 15:29:21 Visit Larisa Richards 350.1.13.10 ity of [place] 4.2.7.2.686 [place] [id number] Nd dical NAL 179 [facility] 2022-05-21 2022-05-21 Ancillary Kaykay Merrill Brian [facility] 1.2.840 .114 [id number] Univers 08:45:00 09:27:12 Visit Larisa Richards 350.1.13.10 ity of [place] 4.2.7.2.[place] [id number] Nd dical NAL 179 [facility] 2022-05-21 2022-05-21 Orders Doctor RAYMOND 1.2.840.114 [id number] Univers 00:00:00 00:00:00 Only Unassigned, MAKENZIE 350.1.13.10 ity of [place] [facility] 4.2.7.2.686 Geoff as [id number] [address] 2022-05-15 2022-05-15 Outpatient R ROLYBull [facility] [id number] Univers 10:30:00 11:04:40 REMY itkb of [facility] 2022-05-15 2022-05-15 Office Katiuska [facility] 1.2.840.114 [id number] Univers 10:30:00 11:04:40 Visit Remy [facility] 350.1.13.10 it y of [place] 4.2.7.2.686 Geoff as KAVIN?BLEA [phone] Nd dical KNEY 044 [facility] OFFICE [facility] 2022-05-14 2022-05-14 Ancillary Sarah Troy [facility] 1.2. 840.114 [id number] Univers 14:30:00 15:15:00 Visit Larisa Richards 350.1.13.10 ity of [place] 4.2.7.2.686 [place] [id number] Nd dical NAL 179 [facility] 2022-05-14 2022-05-14 Outpatient R SUSIE [facility] [id number] Univers 14:30:00 14:30:00 LARISA sandrakb [facility] 2022-05-07 2022-05-07 Ancillary Sarah Troy [facility] 1.2. 840.114 [id number] Univers 14:30:00 15:15:00 Visit Larisa Richards 350.1.13.10 ity [facility] 4.2.7.2.686 [place] [id number] Nd dical NAL 179 [facility] 2022-04-23 2022-04-23 Ancillary Kaykay Merrill [facility] 1.2.840 .114 [id number] Univers 09:30:00 10:15:00 Visit Larisa Richards 350.1.13.10 ity of [facility] 4.2.7.2.686 [place] [id number] Nd dical NAL 179 [facility] 2022-04-23 2022-04-23 Refill [facility] 1.2.840.114 [id number] Univers 00:00:00 00:00:00 Remy HEALTH 350.1.13.10 it y of [place] 4.2.7.2.686 Geoff as KAVIN?BLEA [id number] [facility] 044 [facility] OFFICE [facility] 2022-04-17 2022-04-17 Outpatient R KATIUSKA [facility] [id number] Univers 09:30:00 09:30:00 REMY dhillon [facility] 2022-04-16 2022-04-16 Outpatient R SUSIE [facility] [id number] Univers 09:30:00 11:06:05 LARISA dhillon [facility] 2022-04-16 2022-04-16 Outpatient R SUSIE [facility] [id number] Univers 09:30:00 11:06:05 LARISA dhillon [facility] 2022-04-16 2022-04-16 Ancillary Kaykay Merrill [facility] 1..840 .114 [id number] Univers 09:30:00 11:06:05 Visit Larisa Richards 350.1.13.10 ity of [facility] 4.2.7.2.686 [place] [id number] [address] 2022-04-15 2022-04-15 [facility] [id number] Univers 13:30:00 13:57:30 REMY dhillon [facility] 2022-04-15 2022-04-15 Office [facility] 1.2.840.114 [id number] Univers 13:30:00 13:57:30 Visit Remy HEALTH 350.1.13.10 it y of [place] 4.2.7.2.686 Geoff as KAVIN?BLEA [id number] [address] OFFICE [facility] 2022-04-09 2022-04-09 Ancillary Kaykay Merrill [facility] 1.2.840 .114 [id number] Univers 09:30:00 10:15:00 Visit Larisa Richards 350.1.13.10 ity of [facility] 4.2.7.2.686 [place] [id number] Nd dical NAL 179 [facility] 2022-04-02 2022-04-02 Outpatient R SUSIE [facility] [id number] Univers 09:30:00 09:30:00 LARISA dhillon [facility] 2022-03-31 2022-03-31 Office Katiuska [facility] 1.2.840.114 [id number] Univers 13:30:00 14:00:00 Visit Remy [facility] 350.1.13.10 it y of [facility] 4.2.7.2.686 Geoff as KAVIN?BLEA [phone] Nd dical [facility] 044 [facility] OFFICE [facility] 2022-03-31 2022-03-31 Outpatient R KATIUSKA [facility] [id number] Univers 13:30:00 13:30:00 REMY dhillon [facility] 2022-03-31 2022-03-31 Outpatient R KATIUSKA [facility] [id number] Univers 11:30:00 11:30:00 REMY dhillon [facility] 2022-03-26 2022-03-26 Ancillary Kaykay Merrill [facility] 1.2.840 .114 [id number] Univers 09:30:00 10:22:00 Visit Larisa Richards 350.1.13.10 ity of [facility] 4.2.7.2.686 [place] [id number] Nd dical [facility] 179 [facility] 2022-03-24 2022-03-24 Orders Doctor MANDI 1.2.840.114 [id number] Univers 00:00:00 00:00:00 Only Unassigned, MAKENZIE 350.1.13.10 ity of [place] [facility] 4.2.7.2.686 Geoff as [id number] [address] 2022-03-19 2022-03-19 Ancillary Renny Merrill [facility] 1.2.840. 114 [id number] Univers 09:30:00 10:13:17 Visit Larisa Richards 350.1.13.10 ity of [place] 4.2.7.2.686 [place] [id number] Nd dical NAL 179 [facility] 2022-03-16 2022-03-16 S[employer], Ang - Db [facility] 1.2.840.1 14 [id number] Univers 09:00:00 09:15:00 Visit Remy Harp 350.1.13.10 ity of [place] 4.2.7.2.686 Geoff as KAVIN?BLEA [id number] Nd arnel LAY [address] [facility] OFFICE [facility] 2022-03-16 2022-03-16 Office Katiuska [facility] 1.2.840.114 [id number] Univers 08:00:00 09:02:44 Visit Remy [facility] 350.1.13.10 it y of [place] 4.2.7.2.686 Geoff as KAVIN?BLEA [id number] Nd arnel LAY 044 [facility] 2022-03-16 2022-03-16 Outpatient R KATIUSKA [facility] [id number] Univers 08:00:00 09:02:44 REMY dhillon [facility] 2022-03-16 2022-03-16 Outpatient R KATIUSKA [facility] [id number] Univers 09:00:00 09:00:00 REMY dhillon [facility] 2022-03-16 2022-03-16 Outpatient R KATIUSKA [facility] [id number] Univers 08:00:00 08:00:00 REMY dhillon [facility] 2022-03-12 2022-03-12 Outpatient R SUSIE [facility] [id number] Univers 09:30:00 10:10:13 LARISA dhillon [facility] 2022-03-12 2022-03-12 Ancillary Sarah Troy [facility] 1.2. 840.114 [id number] Univers 09:30:00 10:10:13 Visit Larisa Richards [place] 350.1.13.10 ity [facility] 4.2.7.2.686 [place] [id number] Nd dical NAL 179 [facility] 2022-03-05 2022-03-05 Ancillary Renny Merrill [facility] 1.2.840. 114 [id number] Univers 09:30:00 10:15:00 Visit Larisa Richards 350.1.13.10 ity of [facility] 4.2.7.2.686 [place] [id number] Nd dical NAL 179 [facility] 2022-02-26 2022-02-26 Ancillary Renny Merrill [facility] 1.2.840. 114 [id number] Univers 08:45:00 09:30:00 Visit Larisa Richards 350.1.13.10 ity of [facility] 4.2.7.2.686 [place] [id number] Nd dical NAL 179 [facility] 2022-02-20 2022-02-20 Outpatient R SUSIE [facility] Univers 08:45:00 09:25:43 LARISA ity [facility] 2022-02-20 2022-02-20 Ancillary Donnell Charity Casarez [facility] 1 .2.840.114 [id number] Univers 08:45:00 09:25:43 Visit Larisa Richards 350.1.13.10 ity of [facility] 4.2.7.2.686 [place] [id number] Nd dical NAL 179 [facility] 2022-02-20 2022-02-20 Outpatient R SUSIE [facility] Univers 08:45:00 08:45:00 LARISA ity [facility] 2022-02-10 2022-02-10 Telephone [facility] 1.2.541.540 [id number] Univers 00:00:00 00:00:00 Valeria BUSCH 350.1.13.10 i ty of [place] 4.2.7.2.686 Geoff as KAVIN?BLEA [id number] Nd dicarslan [place] MEDICAL OFFICE BUILDING 2022-02-09 2022-02-09 Outpatient R KATIUSKA [facility] [id number] Univers 13:30:00 13:54:25 REMY dhillon [facility] 2022-02-09 2022-02-09 Office Katiuska [facility] 1.2.840.114 [id number] Univers 13:30:00 13:54:25 Visit Remy HEALTH 350.1.13.10 it y of [place] 4.2.7.2.686 Geoff as KAVIN?BLEA [phone] Nd arnel LAY 044 [facility] OFFICE BUILDING 2022-01-14 2022-01-14 Solicitor Patent Lab, Ang - Db [facility] 1.2.840.1 14 [id number] Univers 16:00:00 16:15:00 Visit Dhara Cintron HEALTH 350.1.13.10 ity of [place] 4.2.7.2.686 Geoff as KAVIN?BLEA [phone] Nd arnel [address] [place] MEDICAL OFFICE BUILDING 2022-01-14 2022-01-14 Outpatient R ABDULAZIZ [facility] [id number] Univers 16:00:00 16:00:00 [facility] 2022-01-14 2022-01-14 [facility] [id number] Univers 10:20:00 10:51:11 [facility] 2022-01-14 2022-01-14 Urgent [facility] 1.2.840.114 [id number] Univers 10:20:00 10:51:11 Care Dhara HEALTH 350.1.13.10 it y of [place] 4.2.7.2.686 Geoff as KAVIN?BLEA [id number] Nd arnel LAY [address] [facility] OFFICE [facility] 2022-01-13 2022-01-13 Telephone Lety [facility] 1.2.840.114 [id number] Univers 00:00:00 00:00:00 HEALTH 350.1.13.10 it y of [place].2.[place] [id number] [address] OFFICE BUILDING 2022-01-12 2022-01-12 Office [facility] 1.2.840.114 [id number] Univers 14:00:00 14:15:00 Visit HEALTH 350.1.13.10 it y of [place] 4[place].2.[place] [id number] [address] OFFICE BUILDING 2022-01-12 2022-01-12 Outpatient R KAI DAVIDSON [facility] [id number] Univers 14:00:00 14:00:00 ity of [facility] 2022-01-05 2022-01-05 Outpatient R KATIUSKA [facility] [id number] Univers 14:30:00 14:54:41 REMY ity [facility] 2022-01-05 2022-01-05 Office [facility] 1.2.840.114 [id number] Univers 14:30:00 14:54:41 Visit Remy [facility] 350.1.13.10 it y [facility] 4.2.7.2.686 Geoff as KAVIN?BLEA [id number] Nd dical KNEY [address] [place] MEDICAL OFFICE BUILDING 2021-12-31 2021-12-31 Outpatient R KATIUSKA [facility] [id number] Univers 14:44:26 23:59:00 REMY itkb [facility] 2021-12-31 2021-12-31 [facility] 1.2.840.114 [id number] Univers 14:44:26 23:59:00 Encounter Remy BUSCH 350.1.13.10 ity of [place] [id number] [facility] [address] ([facility]) 2021-12-10 2021-12-10 Ancillary Lindy Lopez [facility] 1.2.84 0.114 [id number] Univers 15:15:00 16:00:00 Visit Larisa Richards 350.1.13.10 ity of [facility] 4.2.7.2.686 [place] [id number] Nd dical [facility] [address] BUILDING 2021-12-10 2021-12-10 Outpatient R SUSIE [facility] [id number] Univers 15:15:00 15:15:00 LARISA dhillon [facility] 2021-12-10 2021-12-10 Outpatient R SUISE [facility] [id number] Univers 15:15:00 15:15:00 LARISA floreskb [facility] 2021-12-05 2021-12-05 Outpatient R KATIUSKA [facility] [id number] Univers 15:30:00 16:06:36 REMY dhillon [facility] 2021-12-05 2021-12-05 Office Katiuska [facility] 1.2.840.114 [id number] Univers 15:30:00 16:06:36 Visit Remy HEALTH 350.1.13.10 it y of [place] 4.2.7.2.686 Geoff as KAVIN?BLEA [id number] [address] OFFICE [facility] 2021-12-05 2021-12-05 Outpatient R KATIUSKA [facility] [id number] Univers 15:30:00 15:30:00 REMY dhillon [facility] 2021-12-04 2021-12-04 Ancillary Lindy Lopez [facility] 1.2.84 0.114 [id number] Univers 13:00:00 13:45:00 Visit Larisa Richards 350.1.13.10 ity of [place] [id number] [facility] 179 [facility] 2021-12-04 2021-12-04 Refosei [facility]uchampG[facility]UP [facility] 1.2.840.114 [id number] Univers 00:00:00 00:00:00 Joselito HEALTH 350.1.13.10 it y of [place] 4.2.7.2.686 Geoff as KAVIN?BLEA [id number] [address] OFFICE [facility] 2021-12-01 2021-12-01 Ancillary Lindy Lopez [facility] 1.2.84 0.114 [id number] Univers 14:30:00 15:15:00 Visit Larisa Richards 350.1.13.10 ity of [place] [phone] [facility] [address] [facility] 2021-11-24 2021-11-24 Ancillary Lindy Lopez [facility] 1.2.84 0.114 [id number] Univers 14:30:00 15:15:00 Visit Larisa Richards 350.1.13.10 it[place] [phone] Nd dical NAL [address] [facility] 2021-11-24 2021-11-24 Orders Doctor MANDI 1.2.840.114 [id number] Univers 00:00:00 00:00:00 Only Unassigned, MAKENZIE 350.1.13.10 ity of [place] [facility] 4.2.7.2.686 Geoff as [phone] [address] 2021-11-19 2021-11-19 Refosei Beauchamp [facility] 1.2.840.114 [id number] Univers 00:00:00 00:00:00 Joselito HEALTH 350.1.13.10 [facility] 4.2.7.2.686 Geoff as KAVIN?BLEA [phone] [address] OFFICE [facility] 2021-11-17 2021-11-17 Ancillary Lindy Lopez [facility] 1.2.84 0.114 [id number] Univers 08:45:00 09:30:00 [facility] 350.1.13.10 ity [place] [phone] Nd dical NAL [address] [facility] 2021-11-07 2021-11-07 Orders Doctor MANDI 1.2.840.114 [id number] Univers 00:00:00 00:00:00 Only Unassigned, MAKENZIE 350.1.13.10 ity of [place] [facility] 4.2.7.2.686 Geoff as [phone] [address] 2021-11-05 2021-11-05 Outpatient R KATIUSKA [facility] [id number] Univers 16:00:00 16:47:07 REMY itkb of [facility] 2021-11-05 2021-11-05 Office Katiuska [facility] 1.2.840.114 [id number] Univers 16:00:00 16:47:07 Visit Remy [facility] 350.1.13.10 it y of [place] 4.2.7.2.686 Geoff as KAVIN?BLEA [phone] [address] 2021-10-31 2021-10-31 Outpatient R KATIUSKA [facility] [id number] Univers 15:30:00 16:04:43 REMY dhillon [facility] 2021-10-31 2021-10-31 Office [facility] 1.2.840.114 [id number] Univers 15:30:00 16:00:00 Visit Remy BUSCH 350.1.13.10 it y [facility] 4.2.7.2.686 Geoff as KAVIN?BLEA [phone] [address] OFFICE [facility] 2021-10-31 2021-10-31 [facility] [id number] Univers 15:30:00 15:30:00 REMY dhillon [facility] 2021-10-29 2021-10-29 Outpatient R JOSE MARTIN [facility] [id number] Univers 13:00:00 13:00:00 VALERIALILIANE dhillon [facility] 2021-10-28 2021-10-28 Outpatient R KATIUSKA [facility] [id number] Univers 16:32:54 23:59:00 REMY dhillon [facility] 2021-10-28 2021-10-28 Outpatient R KATIUSKA [facility] [id number] Univers 16:30:00 16:31:00 REMY dhillon [facility] 2021-10-28 2021-10-28 [facility] 1.2.840.114 [id number] Univers 16:00:00 16:30:00 Visit Remy BUSCH 350.1.13.10 it y of [place] 4.2.7.2.686 Geoff as KAVIN?BLEA [phone] [address] OFFICE [facility] 2021-10-28 2021-10-28 Outpatient R KATIUSKA [facility] [id number] Univers 16:00:00 16:00:00 REMY dhillon [facility] 2021-07-30 2021-07-30 [place] [facility] 1.2.889.024 [id number] Univers 00:00:00 00:00:00 Dhara HEALTH 350.1.13.10 it y of [place] 4.2.7.2.686 Geoff as KAVIN?BLEA [phone] Nd arnel LAY [address] [place] MEDICAL OFFICE [facility] 2021-07-25 2021-07-25 [facility] Abdulaziz [facility] 1.2.840.114 [id number] Univers 17:48:49 23:59:00 Encounter Dhara [facility] 350.1.13.10 ity of [place] 4.2.7.2.686 Geoff as KAVIN?BLEA [phone] [facility] LAY [address] [facility] OFFICE [facility] 2021-07-25 2021-07-25 [facility] Abdulaziz [facility] 1.2.840.114 [id number] Univers 18:00:00 18:20:00 Care [facility] 350.1.13.10 ity of [facility] 4.2.7.2.686 Geoff as KAVIN?BLEA [phone] [address] 2021-07-25 2021-07-25 Outpatient R YOJANA [facility] [id number] Univers 18:00:00 18:02:39 HILL sandrakb o f [facility] 2021-07-25 2021-07-25 Outpatient R JOSE MARTIN [facility] [id number] Univers 15:30:00 15:30:00 VALERIA [facility] 2021-07-17 2021-07-17 Outpatient R CHENCHO [facility] [id number] Univers 13:00:00 13:00:00 REFUGIO [facility] 2021-07-15 2021-07-15 Laboratory Only, Ang Db Test [facility] 1.2.8 40.114 [id number] Univers 19:15:00 19:30:00 Only [facility] 350.1.13.10 ity of [place] 4.2.7.2.686 Geoff as KAVIN?BLEA [phone] [address] 2021-07-15 2021-07-15 Outpatient R ABDULAZIZ [facility] [id number] Univers 19:20:00 19:20:00 DHARA [facility] 2021-07-15 2021-07-15 Outpatient R YOJANA [facility] [id number] Univers 19:15:00 19:15:00 HILL dhillon o f [facility] 2021-07-10 2021-07-10 Emergency X CHLOE, [facility] ERT [id number] Univers 10:19:00 15:02:00 HI [facility] 2021-07-10 2021-07-10 Emergency [facility] 1.2.840.114 [id number] Univers 10:19:00 15:02:00 Hi Ernst [facility] 350.1.13.10 ity of [place] 4.2.7.2.686 [facility] [phone] [place] [address] [address] 2021-07-10 2021-07-10 Outpatient R JOSE MARTIN [facility] [id number] Univers 08:30:00 08:30:00 [facility] 2021-06-25 2021-06-25 Outpatient [facility] [id number] Univers 16:00:00 16:00:00 [facility] 2021-06-19 2021-06-19 Patient [facility] 1.2.840.114 [id number] Univers 00:00:00 00:00:00 Secure Msg Alejandra GREENPEC 350.1.13.10 ity of [place] 4.2.7.2.686 [facility] [phone] [facility] [address] [place] [facility] 2021-06-10 2021-06-10 Solicitor Patent Vtc-Lab [facility] 1.2.840.114 [id number] Univers 13:07:44 13:22:44 Visit Alejandra Vargas 350.1. 13.10 ity of [place] 4.2.7.2.686 [facility] [phone] [facility] [address] [place] [facility] 2021-06-10 2021-06-10 Outpatient R ALICIA [facility] [id number] Univers 12:30:00 13:08:41 ALEJANDRA [facility] 2021-06-10 2021-06-10 Office [facility] 1.2.840.114 [id number] Univers 12:19:46 13:08:41 Visit Aljeandra GREENPEC 350.1.13.10 ity of [place] 4.2.7.2.686 [facility] [place] [phone] [address] [facility] 2021-06-03 2021-06-03 Orders Doctor MANDI 1.2.840.114 [id number] Univers 00:00:00 00:00:00 Only Unassigned, MAKENZIE 350.1.13.10 ity of [place] [facility] 4.2.7.2.[address] Geoff [id number] [address] 2021-05-27 2021-05-27 Solicitor Patent [facility] 1.2.840.114 [id number] Univers 15:45:58 16:00:58 Visit Alejandra Vargas 350.1. 13.10 ity of [place] 4.2.7.2.686 [facility] [place] [id number] [address] DIABETES [facility] 2021-05-27 2021-05-27 Outpatient [facility] [id number] Univers 14:30:00 15:46:54 ALEJANDRA paris [facility] 2021-05-27 2021-05-27 Outpatient R ALICIA [facility] [id number] Univers 14:30:00 15:46:54 ALEJANDRA [facility] 2021-05-27 2021-05-27 Office [facility] 1.2.840.114 [id number] Univers 14:08:09 15:46:54 Visit Alejandra LEYVA 350.1.13.10 ity of [place] 4.2.7.2.686 [facility] [place] [id number] [address] DIABETES [facility] 2021-05-22 2021-05-22 Patient Rohan [facility] 1.2.840.114 [id number] Univers 00:00:00 00:00:00 Secure Msg Nitza Findery 350.1.13.10 ity of [place] 4.2.7.2.686 Geoff as KAVIN?BLEA [phone] Me arnel [place] [address] [place] MEDICAL OFFICE [facility] 2021-05-14 2021-05-14 Outpatient R JOSE MARTIN, [facility] [id number] Univers 16:00:00 16:17:51 VALERIA dhillon [facility] 2021-05-14 2021-05-14 Office JoseM artinGALLUP [facility] 1.2.840.114 [id number] Univers 15:52:21 16:17:51 Visit Valeria A [facility] 350.1.13.10 i ty of [place] 4.2.7.2.686 Geoff as KAVIN?BLEA [phone] [address] OFFICE [facility] 2021-05-14 2021-05-14 Outpatient [facility] [id number] Univers 16:00:00 16:00:00 VALERIA [facility] 2021-05-13 2021-05-13 Emergency Ev Hawkins [facility] 1.2.840 .114 [id number] Univers 00:06:00 01:59:00 Yany Mcd[place]ton 350.1.13.10 ity of [place].2.7.2.686 [place] [phone] [address] 2021-05-12 2021-05-12 Solicitor Patent Lab, Ang - Db [facility] 1.2.840.1 14 [id number] Univers 16:42:59 16:47:21 Visit Nitza Madrigal 350.1.13.10 ity of [place] 4.2.7.2.686 Geoff as Kavin?Blea [phone] Nd arnel lay 353 [facility] Office [facility] 2021-05-12 2021-05-12 Office Rohan [facility] 1.2.840.114 [id number] Univers 15:29:32 16:41:27 Visit Nitza Blaze.io 350.1.13.10 it y of [place] 4.2.7.2.686 Geoff as Kavin?Blea [phone] [facility] 044 [facility] Office [facility] 2021-05-12 2021-05-12 Outpatient R ROHAN [facility] [id number] Univers 15:30:00 15:30:00 NITZA ity of [facility] 2021-04-17 2021-04-17 Letter MANDI Tan 1.2.840.114 [id number] Univers 00:00:00 00:00:00 (Out) Serina BANEGAS 350.1.13.10 it y of HOSPITAL 4.2.7.2.686 Geoff as [phone] [address] 2021-04-16 2021-04-16 Laboratory Only, Ang Db Test [facility] 1.2.8 40.114 [id number] Univers 11:21:42 11:36:42 Only Christy [facility] 350.1.13.10 ity of [place] 4.2.7.2.686 Geoff as Kavin?Blea [phone] [facility] 370 [facility] Office [facility] 2021-04-16 2021-04-16 Outpatient R DEANNE [facility] [id number] Univers 11:30:00 11:30:00 CHRISTY dhillon o f [facility] 2021-04-03 2021-04-03 Telephone Peng [facility] .2.840.114 [id number] Univers 00:00:00 00:00:00 Wondiful A Health 350.1.13.10 ity of [place] 4.2.7.2.686 Geoff as Kavin?Blea [phone] [facility] 044 [facility] Office [facility] 2021-03-27 2021-03-27 Office [facility] 1.2.840.114 [id number] Univers 13:21:12 13:36:12 Visit [facility] Health 350.1.13.10 it y of [place] 4.2.7.2.686 Geoff as Kavin?Blea [phone] [facility] 198 [facility] Office [facility] 2021-03-27 2021-03-27 [facility] [id number] Univers 13:30:00 13:30:00 ALEKSANDRA ity [facility] 2021-03-27 2021-03-27 Letter Susie [facility] 1.2.576.069 [id number] Univers 00:00:00 00:00:00 (Out) Larisa Busch 350.1.13.10 it y of [place] 4.2.7.2.686 Geoff as Kavin?Blea [phone] Me arnel lay 198 [facility] Office [facility] 2021-03-14 2021-03-14 Office [facility] 1.2.169.124 [id number] Univers 09:13:19 09:47:46 Visit Larisa Busch 350.1.13.10 it y of [place] 4.2.7.2.686 Geoff as Kavin?Blea [phone] Me arnel lay 198 [facility] Office [facility] 2021-03-14 2021-03-14 Outpatient [facility] [id number] Univers 09:30:00 09:30:00 LARISATONI dhillon [facility] 2021-03-13 2021-03-13 Office Jose MartinGALLUP [facility] 1.2.840.114 [id number] Univers 13:51:58 15:05:53 Visit Valeria Busch 350.1.13.10 i ty of [place] 4.2.7.2.686 Geoff as Kavin?Blea [phone] Nd arnel lay 044 [facility] Office [facility] 2021-03-13 2021-03-13 Outpatient R [facility]SE [facility] [id number] Univers 14:00:00 14:00:00 VALERIALILIANE dhillon [facility] 2021-03-12 2021-03-12 Aimee MadrigalGALLUP [facility] 1.2.684.732 [id number] Univers 00:00:00 00:00:00 Nitza Blaze.io 350.1.13.10 it y of [place] 4.2.7.2.686 Geoff as Kavin?Blea [phone] Nd arnel lay [address] [place] [address] Office [facility] 2021-03-10 2021-03-10 Outpatient R ROHAN [facility] [id number] Univers 15:07:49 23:59:00 NITZA dhillon [facility] 2021-03-10 2021-03-10 Outpatient Oren [facility] [id number] Univers 14:30:00 14:30:00 NITZA dhillon [facility] 2021-02-20 2021-02-20 Office Jose MartinGALLUP [facility] 1.2.840.114 [id number] Univers 12:08:12 13:23:48 Visit Valeria [facility] 350.1.13.10 i ty of [place] 4.2.7.2.686 Geoff as Professio [phone] [facility] [address] [place] Office Building One 2021-02-20 2021-02-20 Outpatient R JOSE MARTIN, [facility] [id number] Univers 12:30:00 12:30:00 VALERIA dhillon [facility] 2021-02-03 2021-02-03 Outpatient R RENAE, [facility] [id number] Univers 10:00:00 10:00:00 JENIFRE kb [facility] 2020-12-11 2020-12-11 Wilder BurgessGALLUP [facility] 1.2.840.114 [id number] Univers 00:00:00 00:00:00 Robin Alonzo 350.1.13.10 i ty of [place]2.[place].2.686 [place] [id number] [facility] 044 [facility] 2020-12-09 2020-12-09 Solicitor Patent [facility] 1.2.840.114 [id number] Univers 11:29:46 11:44:46 Visit Maximiliano Stollica Y HEALTH 350.1.13.10 ity of CLINICS 4.2.7.2.686 [place] [phone] [facility] [address] [place] 2020-12-09 2020-12-09 Outpatient R RENAE, [facility] [id number] Univers 10:00:00 11:25:43 JENIFER dhillon [facility] 2020-12-09 2020-12-09 Office HUONG StollIT 1.2.840.114 [id number] Univers 09:36:42 11:25:43 Visit Jenifer [facility] 350.1.13.10 i ty of CLINICS 4.2.7.2.686 [place] [phone] [place] [address] [place] 2020-12-09 2020-12-09 Outpatient R LibanHU, [facility] [id number] Univers 10:00:00 10:00:00 JENIFER itkb [facility] 2020-11-28 2020-11-28 Outpatient R PENG, [facility] [id number] Univers 10:30:00 10:30:00 WONDIFUL ity o f [facility] 2020-11-27 2020-11-27 Outpatient R ESTELA, [facility] [id number] Univers 09:00:00 09:00:00 KERRI dhillon [facility] 2020-11-13 2020-11-13 [facility]patient [facility] [id number] Univers 00:00:00 00:00:00 WONDIFUL ity o f [facility] 2020-10-31 2020-10-31 Case [facility] 1.2.840.114 [id number] Univers 00:00:00 00:00:00 Management Wondiful A Health 350.1.13.10 ity of [place] 4.2.7.2.686 Geoff as Professio [phone] [facility] [address] [place] Office Building One 2020-10-29 2020-10-29 Solicitor Patent [facility] Main [facility] 1.2.8 40.114 [id number] Univers 08:15:59 08:35:59 Visit Valeria Philippeton 350.1.13.10 ity of [place] 4.2.7.2.686 [place] [phone] Nd dical nal [address] [place] Building 2020-10-29 2020-10-29 Outpatient R [facility]SE [facility] [id number] Univers 08:00:00 08:00:00 VALERIA dhillon [facility] 2020-10-26 2020-10-26 Outpatient [facility] [id number] Univers 16:10:00 16:10:00 ity [facility] 2020-10-25 2020-10-25 Office [facility] 1.2.840.114 [id number] Univers 13:06:45 14:06:38 Visit Wondiful A Health 350.1.13.10 ity of [place] 4.2.7.2.686 Geoff as Professio [phone] Nd dical nal [address] Office Building One 2020-10-25 2020-10-25 Outpatient R PENG [facility] [id number] Univers 13:15:00 13:15:00 WONDIFUL ity o f [facility] 2020-10-05 2020-10-05 Outpatient [facility] [id number] Univers 16:10:00 16:10:00 ity of [facility] 2020-10-03 2020-10-03 Patient [facility] 1.2.840.114 [id number] Univers 00:00:00 00:00:00 Outreach Refugio PRIMARY 350.1.13.10 i ty of [facility] 4.2.7.2.686 [place] [facility] [phone] Nd dicnh [address] [place] 2020-06-24 2020-06-24 Hospital Peng [facility] 1.2.807.710 [id number] Univers 13:35:47 23:59:00 Encounter Wondiful A [place] 350.1.13.10 ity of [place] 4.2.7.2.686 [place] [phone] [facility] [address] 2020-06-24 2020-06-24 Outpatient R PENG [facility] [id number] Univers 13:35:47 23:59:00 WONDIFUL ity o f [facility] 2020-06-19 2020-06-19 Outpatient R [facility] [id number] Univers 00:00:00 00:00:00 QIANGJUN ity o f [facility] 2020-06-19 2020-06-19 Orders Doctor MANDI 1.2.840.114 [id number] Univers 00:00:00 00:00:00 Only Unassigned, MAKENZIE 350.1.13.10 ity of [place] [facility] 4.2.7.2.686 Geoff as [phone] [facility] [address] 2020-06-17 2020-06-17 Laboratory Only, Adc Test [facility] 1.2.840. 114 [id number] Univers 15:32:02 15:47:02 Only Britton Costello 350.1.13.10 ity of [place] 4.2.7.2.686 [place] [id number] [address] 2020-06-17 2020-06-17 Outpatient R [facility] [id number] Univers 15:45:00 15:45:00 ity of [facility] 2020-06-12 2020-06-12 Case Pegn [facility] 1.2.840.114 [id number] Univers 00:00:00 00:00:00 Management Wondiful A Health 350.1.13.10 ity of [place] 4.2.7.2.686 Geoff as Professio [phone] [address] 2020-06-04 2020-06-04 Telephone Peng [facility] 1.2.840.114 [id number] Univers 00:00:00 00:00:00 Wondiful A Health 350.1.13.10 ity of [place] 4.2.7.2.686 Geoff as Professio [phone] [facility] 044 [facility] 2020-05-31 2020-05-31 Office [facility] 1.2.840.114 [id number] Univers 10:22:28 11:58:37 Visit Elise Granger 350.1.13.10 ity of [place].2.7.2.686 [place] [phone] [facility] 059 [facility] 2020-05-31 2020-05-31 Outpatient R CHAU [facility] [id number] Univers 10:40:00 10:40:00 ELISE ity o f [facility] 2020-05-30 2020-05-30 Solicitor Patent [facility] Main [facility] 1.2.8 40.114 [id number] Univers 12:28:58 12:43:58 Visit Noe Khourycampos Bull Granger 350.1.13. 10 ity of [place].2.7.2.686 [place] [phone] [address] 2020-05-30 2020-05-30 Office [facility] 1.2.840.114 [id number] Univers 11:26:34 12:14:19 Visit Wondiful A Health 350.1.13.10 ity of [place] 4.2.7.2.686 Geoff as Professio [id number] [address] Office Building One 2020-05-30 2020-05-30 Solicitor Patent Lab, Adc Fam Pob I [facility] 1.2. 840.114 [id number] Univers 11:27:48 11:47:48 Visit Judith Khoury [facility] 350.1.13.1 0 ity of [place] 4.2.7.2.686 Geoff as Professio [phone] [address] Office Building One 2020-05-30 2020-05-30 Outpatient R PENG [facility] [id number] Univers 11:30:00 11:30:00 WONDIFUL ity o f [facility] 2020-05-30 2020-05-30 Orders Doctor MANDI 1.2.840.114 [id number] Univers 00:00:00 00:00:00 Only Unassigned, MAKENZIE 350.1.13.10 ity of [place] [facility] 4.2.7.2.686 Geoff as [phone] [address] 2020-05-30 2020-05-30 Telephone Peng [facility] 1.2.840.114 [id number] Univers 00:00:00 00:00:00 Noediful A Health 350.1.13.10 ity of [place] 4.2.7.2.686 Geoff as Professio [phone] [address] Office Building One 2020-02-02 2020-02-02 Telephone Rohan [facility] 1.2.484.522 [id number] 00:00:00 00:00:00 Nitza Health 350.1.13.10 [place] 4.2.7.2.686 Professio [id number] [place] [address] Office Building [facility] 2020-02-02 2020-02-02 Telephone [facility] 1.2.948.855 [id number] Univers 00:00:00 00:00:00 Nitza Health 350.1.13.10 it y of [place] 4.2.7.2.686 Geoff as Professio [phone] Nd dical nal [address] [place] [address] Office Building One 2020-02-01 2020-02-01 Laboratory Lab, [facility] Fam Pob I [facility] 1.2. 840.114 [id number] Univers 12:53:49 15:29:04 Only Noel [facility] 350.1.13.10 ity of [place] 4.2.7.2.686 Geoff as Professio [phone] [facility] nal [address] [place] [address] Office Building One 2020-02-01 2020-02-01 Laboratory Lab, [facility] 1.2.840.114 [id number] 12:53:49 15:29:04 Only Fam Pob I Health 350.1.13.10 [place] 4.2.7.2.686 Professio [phone] [place] [address] Office Building One 2020-02-01 2020-02-01 Outpatient R MADAI, [facility] [id number] Univers 13:40:00 13:40:00 BOOIA ity of [facility] 2020-02-01 2020-02-01 Letter Lab, Pcp [facility] 1.2.840.114 [id number] Univers 00:00:00 00:00:00 (Out) Covid Health 350.1.13.10 it y of [place] 4.2.7.2.686 Geoff as Professio [phone] [address] Office [facility] One 2020-02-01 2020-02-01 Letter Lab, Pcp [facility] 1.2.840.114 [id number] Univers 00:00:00 00:00:00 (Out) Covid Health 350.1.13.10 it y of [place] 4.2.7.2.686 Geoff as Professio [phone] Nd dical nal [address] [place] [address] Office Building One 2020-01-28 2020-01-28 Laboratory Lab, [facility] Pob I [facility] 1.2. 840.114 [id number] Univers 09:24:35 09:39:01 Only Rohan, Nitza Health 350.1.13.10 ity of [place] 4.2.7.2.686 Geoff as Professio [phone] [facility] nal [address] [place] [address] Office Building One 2020-01-28 2020-01-28 Outpatient O ROHAN [facility] [id number] Univers 08:40:00 08:40:00 NITZA ity [facility] 2020-01-17 2020-01-17 Outpatient R JENIFER [facility] [id number] Univers 09:00:00 09:00:00 ROBIN dhillon [facility] 2019-11-17 2019-11-17 Outpatient R JENIFER [facility] [id number] Univers 09:45:00 09:45:00 ROBIN dhillon [facility] 2019-11-17 2019-11-17 Telemedici [facility] 1.2.840.114 [id number] Univers 08:15:11 08:30:11 ne Visit Robin Goldenton 350.1.13.10 ity of [place].2.[place] [phone] [address] 2019-03-31 2019-03-31 Office [facility] 1.2.840.114 [id number] [facility] 15:04:14 16:28:52 Visit Wondiful A Health 350.1.13.10 ity of [place] 4.2.7.2.686 Geoff as Professio [phone] [address] One 2019-03-24 2019-03-24 Telephone [facility] 1.2.840.114 [id number] [facility] 00:00:00 00:00:00 [facility] 350.1.13.10 ity of [place] 4.2.7.2.686 [place] as Professio [phone] [address] One 2019-03-15 2019-03-15 Telephone [facility] 1.2.840.114 [id number] [facility] 00:00:00 00:00:00 [facility] 350.1.13.10 ity of [place] 4.2.7.2.686 [place] as Professio [phone] [address] One 2019-03-14 2019-03-14 [facility] [id number] [facility] 15:30:00 23:59:00 Encounter Ravindra[facility] [place] 350.1.13.10 ity of [place] 4.2.7.2.686 [place] [facility] [phone] [facility] [address] 2019-03-14 2019-03-14 Office Peng [facility] 1.2.840.114 [id number] Univers 14:47:21 15:20:36 Visit Ravindraful Bull [facility] 350.1.13.10 ity of [place] 4.2.7.2.686 Geoff as Professio [phone] [facility] [address] [place] 2019-03-14 2019-03-14 Orders Doctor MANDI 1.2.840.114 [id number] [facility] 00:00:00 00:00:00 Only Unassigned, MAKENZIE 350.1.13.10 ity of [place] [facility] 4.2.7.2.686 Geoff as [phone] [facility] [address] 2018-01-25 2018-01-25 Emergency X ILENE [facility] ERT [id number] Univers 07:47:00 08:53:00 VINCE dhillon of [facility] Results This patient has no known results.
[2022-08-23] MEDS ORDERED: ONDANSETRON 4 MG/2 ML VIAL ONE (13:05)
[2022-08-23] MEDS ORDERED: MORPHINE 4 MG/ML SYR ONE (13:05)
[2022-08-23 13:18] LABS: Urine Blood Negative (Negative); Urine Glucose Negative (Negative); Urine Protein Negative (Negative); Urine Specific Gravity 1.015 (1.005-1.030); Urine pH 5.5 (5.0-7.0)
--- NOTE | 2022-08-23 13:39 | RAD REPORT ---
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 TECHNIQUE: Thin section axial imaging of the lumbar spine was performed. Sagittal and coronal recon struction images were generated and reviewed. All CT scans are performed using dose optimization technique as appropriate and may include automated exposure control or mA/KV adjustment according to patient size. FINDINGS: T12-S1 bodies are normal in height and alignment. No acute vertebral body finding. No para spinal soft tissue mass or hematoma identifiable. T11-12 level: Facet joint degenerative change seen. There is minimal encroachment on the left posteri or thecal sac. No canal or foramen stenosis. T12-L1 level: No significant finding L1-2 level: Mild bilateral facet joint degenerative change. No significant canal or foramen finding. L2-3 level: Mild facet joint degenerative change. No central canal or foramen abnormality. L3-4 level: Mild to moderate facet joint degenerative change. No pars defect. No disc herniation. No significant bulging of disc material. L4-5 level: Mild to moderate facet joint degenerative change. There is partial calcification of the l igaments. No canal or foramen stenosis. L5-S1 level: No significant finding. Central canal detail is inherently limited on CT imaging. There is no evidence for an intradural mass or other significant central canal abnormality. IMPRESSION: Degenerative changes are seen in the mid and lower lumbar spine facet joints and ligamen ts. No central spinal stenosis or significant foraminal encroachment. Central canal detail is inherently limited on CT imaging. There is no suspicion for epidural mass or hematoma.
[2022-08-23] MEDS ORDERED: NA CHLORIDE 0.9% 1,000 ML ONE (14:05)
--- NOTE | 2022-08-23 15:18 | ER ---
Nurse's Notes [facility] Name: Sumit Roberson Age: 41 yrs Sex: Male : 1980 Arrival Date: 08/23/2022 Time: 12:05 Bed 16 Private MD: Diagnosis: Other reaction to spinal and lumbar puncture Presentation: 08/23 12:16 Chief complaint: Patient states: Had steroid injection Silvino 9 days ago. ESPINAL, dizziness ll1 has gotten worse daily. Coronavirus screen: Vaccine status: Patient reports receiving the 2nd dose of the covid vaccine. Client denies travel out of the [place] in the last 14 days. At this time, the client does not indicate any symptoms associated with coronavirus-19. Ebola Screen: Patient denies travel to an Ebola-affected area in the 21 days before illness onset. Initial Sepsis Screen: Does the patient meet any 2 criteria? No. Patient's initial sepsis screen is negative. Does the patient have a suspected source of infection? Yes: S/S of meningitis or endocarditis. Risk Assessment: Do you want to hurt yourself or someone else? Patient reports no desire to harm self or others. Onset of symptoms was August 15, 2022. 12:16 Method Of Arrival: Wheelchair ll1 12:16 Acuity: ISABEL 3 ll1 Triage Assessment: 12:20 General: Appears in no apparent distress. uncomfortable, Behavior is cooperative, bp appropriate for age, anxious. Pain: Complains of pain in head. EENT: No deficits noted. Neuro: Reports dizziness, headache. Cardiovascular: No deficits noted. Respiratory: No deficits noted. GI: No signs and/or symptoms were reported involving the gastrointestinal system. : No signs and/or symptoms were reported regarding the genitourinary system. Derm: No deficits noted. Musculoskeletal: Circulation, motion, and sensation intact. Range of motion: intact in all extremities. Historical: - Allergies: 12:15 No Known Allergies; ll1 - PMHx: 12:15 High Cholesterol; tear lumbar disc area; fatty liver; ll1 - PSHx: 12:15 spinal injection; carpal tunnel B; ll1 - Immunization history:: Client reports receiving the 2nd dose of the Covid vaccine. - Social history:: Smoking status: Patient denies any tobacco usage or history of. Screenin:[facility] Fall Risk Assessment (Adult) History of falling in the last 3 months, bp including since admission. Abuse screen: Denies threats or abuse. Denies injuries from another. Nutritional screening: No deficits noted. Tuberculosis screening: No symptoms or risk factors identified. Assessment: 12:20 General: SEE TRIAGE NOTE. bp 14:00 Reassessment: CONSENT FOR EPIDURAL BLOOD PATCH SIGNED AND WITNESSED. DR CANAS WITH bp ANAESTHESIA AT B/S FOR PROCEDURE. 15:42 Reassessment: PT DC HOME VIA WC WITH FAMILY. bp Vital Signs: 12:16 BP 136 / 100; Pulse 74; Resp 18; Pulse Ox 99% ; Weight 122.47 kg; Height 5 ft. 9 in. ll1 (175.26 cm); Pain 7/10; 15:42 BP 120 / 78; Pulse 73; Resp 16; Pulse Ox 99% ; bp 12:16 Body Mass Index 39.87 (122.47 kg, 175.26 cm) ll1 ED Course: 12:05 Patient arrived in ED. am2 12:10 Gamaliel Wilkerson MD is Attending Physician. kdr 12:18 Triage completed. ll1 12:18 Arm band placed on Patient placed in an exam room, on a stretcher. ll1 12:20 Patient has correct armband on for positive identification. Bed in low position. Call bp light in reach. Side rails up X2. 12:27 Jason Ponce, RN is Primary Nurse. bp 13:00 Inserted saline lock: 20 gauge in left forearm, using aseptic technique. Blood bp collected. 13:24 CT Lumbar Spine Wo Con In Process Unspecified. EDMS 15:42 No provider procedures requiring assistance completed. IV discontinued, intact, bp bleeding controlled, No redness/swelling at site. Pressure dressing applied. Administered Medications: 13:00 Drug: morphine 4 mg Route: IVP; Infused Over: 4 mins; Site: left forearm; bp 15:45 Follow up: Response: No adverse reaction bp 13:00 Drug: Zofran (Ondansetron) 4 mg Route: IVP; Site: left forearm; bp 15:45 Follow up: Response: No adverse reaction bp Medication: 12:20 VIS not applicable for this client. bp Outcome: 15:17 Discharge ordered by . kdr 15:42 Discharged to home via wheelchair, with family. bp 15:42 Condition: stable 15:42 Discharge instructions given to patient, Instructed on discharge instructions, follow up and referral plans. Demonstrated understanding of instructions, follow-up care, medications, Prescriptions given X 1. 15:45 Patient left the ED. bp Signatures: Dispatcher [employer] EDMS Gamaliel Wilkerson MD MD [facility] Dhara Juarez Brian, RN RN bp Víctor Rhodes RN RN ll1
--- NOTE | 2022-08-23 15:18 | EDPHYS ---
Physician Documentation [facility] Name: Sumit Roberson Age: 41 yrs Sex: Male : 1980 Arrival Date: 08/23/2022 Time: 12:05 Bed 16 Private MD: ED Physician Gamaliel Wilkerson HPI: 08/23 17:21 This 41 yrs old Male presents to ER via Wheelchair with complaints of Back kdr Pain, Headache, Dizziness. 17:21 Patient had a steroid injection of low back about 9 days ago. Since then he has kdr progressively had worsening dizziness and headache. Today the headache has been intolerable. Patient has some nausea but no vomiting has not had a fever. He is not having any pain other than his spine status post lumbar puncture and injection.. Onset: The symptoms/episode began/occurred gradually, 9 day(s) ago. Severity of symptoms: At their worst the symptoms were severe incapacitating in the emergency department the symptoms are unchanged. The patient has not experienced similar symptoms in the past. The patient has not recently seen a physician. Historical: - Allergies: 12:15 No Known Allergies; ll1 - PMHx: 12:15 High Cholesterol; tear lumbar disc area; fatty liver; ll1 - PSHx: 12:15 spinal injection; carpal tunnel B; ll1 - Immunization history:: Client reports receiving the 2nd dose of the Covid vaccine. - Social history:: Smoking status: Patient denies any tobacco usage or history of. ROS: 17:21 Constitutional: Negative for fever, chills, and weight loss, Eyes: Negative for injury, kdr pain, redness, and discharge, Neck: Negative for injury, pain, and swelling, Cardiovascular: Negative for chest pain, palpitations, and edema, Respiratory: Negative for shortness of breath, cough, wheezing, and pleuritic chest pain, Abdomen/GI: Negative for abdominal pain, nausea, vomiting, diarrhea, and constipation, : Negative for injury, bleeding, discharge, and swelling, MS/Extremity: Negative for injury and deformity, Skin: Negative for injury, rash, and discoloration, Psych: Negative for depression, anxiety, suicide ideation, homicidal ideation, and hallucinations, Allergy/Immunology: Negative for hives, rash, and allergies, Endocrine: Negative for neck swelling, polydipsia, polyuria, polyphagia, and marked weight changes, Hematologic/Lymphatic: Negative for swollen nodes, abnormal bleeding, and unusual bruising. 17:21 Back: Positive for decreased range of motion, pain at rest, of the lumbar area. 17:21 Neuro: Positive for headache, weakness. Exam: 17:21 Constitutional: This is a well developed, well nourished patient who is awake, alert, kdr and in mild to moderate distress. Head/Face: Normocephalic, atraumatic. ENT: Nares patent. No nasal discharge, no septal abnormalities noted. Tympanic membranes are normal and external auditory canals are clear. Oropharynx with no redness, swelling, or masses, exudates, or evidence of obstruction, uvula midline. Mucous membranes moist. Neck: Trachea midline, no thyromegaly or masses palpated, and no cervical lymphadenopathy. Supple, full range of motion without nuchal rigidity, or vertebral point tenderness. No Meningismus. Chest/axilla: Normal chest wall appearance and motion. Nontender with no deformity. No lesions are appreciated. Cardiovascular: Regular rate and rhythm with a normal S1 and S2. No gallops, murmurs, or rubs. Normal PMI, no JVD. No pulse deficits. Respiratory: Lungs have equal breath sounds bilaterally, clear to auscultation and percussion. No rales, rhonchi or wheezes noted. No increased work of breathing, no retractions or nasal flaring. Abdomen/GI: Soft, non-tender, with normal bowel sounds. No distension or tympany. No guarding or rebound. No evidence of tenderness throughout. Back: No spinal tenderness. No costovertebral tenderness. Full range of motion. Skin: Warm, dry with normal turgor. Normal color with no rashes, no lesions, and no evidence of cellulitis. MS/ Extremity: Pulses equal, no cyanosis. Neurovascular intact. Full, normal range of motion. Neuro: Awake and alert, GCS 15, oriented to person, place, time, and situation. Cranial nerves II-XII grossly intact. Motor strength 5/5 in all extremities. Sensory grossly intact. Cerebellar exam normal. Normal gait. Psych: Awake, alert, with orientation to person, place and time. Behavior, mood, and affect are within normal limits. Vital Signs: 12:16 BP 136 / 100; Pulse 74; Resp 18; Pulse Ox 99% ; Weight 122.47 kg; Height 5 ft. 9 in. ll1 (175.26 cm); Pain 7/10; 15:42 BP 120 / 78; Pulse 73; Resp 16; Pulse Ox 99% ; bp 12:16 Body Mass Index 39.87 (122.47 kg, 175.26 cm) ll1 MDM: 13:33 Data reviewed: vital signs. ED course: Discussed with Dr. Dozier with regard to kdr evaluation for possible blood patch. 15:17 Patient medically screened. kdr 08/23 13:18 Order name: Urine Dipstick-Ancillary; Complete Time: 15:11 EDMS 08/23 12:38 Order name: CT Lumbar Spine Wo Con; Complete Time: 15:11 kdr 08/23 12:38 Order name: Urine Dipstick-Ancillary (obtain specimen); Complete Time: 13:24 kdr Administered Medications: 13:00 Drug: morphine 4 mg Route: IVP; Infused Over: 4 mins; Site: left forearm; bp 15:45 Follow up: Response: No adverse reaction bp 13:00 Drug: Zofran (Ondansetron) 4 mg Route: IVP; Site: left forearm; bp 15:45 Follow up: Response: No adverse reaction bp Disposition Summary: 08/23/22 15:17 Discharge Ordered Location: Home kdr Problem: an ongoing problem kdr Symptoms: have improved kdr Condition: Stable kdr Diagnosis - Other reaction to spinal and lumbar puncture kdr Followup: kdr - With: Private Physician - When: 2 - 3 days - Reason: If symptoms return, Further diagnostic work-up, Recheck today's complaints, Continuance of care, Re-evaluation by your physician Discharge Instructions: - Discharge Summary Sheet kdr - Epidural Blood Patch for Spinal Headache kdr - Spinal Headache kdr Forms: - Medication Reconciliation Form kdr - Thank You Letter kdr - Prescription Opioid Use kdr Prescriptions: - Tramadol 50 mg Oral Tablet - take 1 tablet by ORAL route every 8 hours As needed as needed; 12 tablet; kdr Refills: 0, Product Selection Permitted Signatures: Dispatcher [employer] EDMD Gamaliel Wilkerson MD MD kdr Jason Ponce RN RN bp Víctor Rhodes RN RN ll1
[2022-08-23 15:59] VITALS: O2SAT 99
[2022-08-23 16:05] VITALS: BP 120/78
== END 2022-08-23 15:45 | disposition home or self-care (01) ==
LOC: ER 12:04
DX: G97.1 Other reaction to spinal and lumbar puncture (principal)
CPT/HCPCS: 81003; 72131; J7030; J2405; 96374; 96375; 99284

== ENCOUNTER 2023-03-23 09:30 | Emergency (ER) | payer OTHER ==
--- OUTSIDE RECORDS SUMMARY | 2023-03-23 09:43 | XMS REPORT | Continuity of Care Document ---
:1980 Author Organization [facility] t Address [address] [facility] [address] [place] [id number] Care Team Providers Name Role Phone REMY HARP Primary Care Physician Unavailable JACKIE MCKEON Attending Clinician Unavailable JACKIE MCKEON Attending Clinician Unavailable ELISE SANDOVAL Attending Clinician Unavailable REMY HARP Attending Clinician Unavailable VALERIA PHILIPPE Attending Clinician Unavailable SHARIF SULTANA Attending Clinician Unavailable SHARIF SULTANA Attending Clinician Unavailable Sharif Sultana DO Attending Clinician Enid Loera Attending Clinician Unknown, Attending Attending Clinician Unavailable ENID MCFARLAND Attending Clinician Unavailable BRITTON YANEZ Attending Clinician Unavailable Remy Laws Attending Clinician Kaykay Merrill PTA Attending Clinician Unavailable Britton Yanez MD Attending Clinician Yany Abarca PTA Attending Clinician Unavailable Larisa Richards MD Attending Clinician Renny Merrill PTA Attending Clinician Unavailable Sarah Troy PTA Attending Clinician Unavailable [facility] Attending Clinician Unavailable Alireza Shipman MD Attending Clinician ALIREZA SHIPMAN Attending Clinician Unavailable ALIREZA SHIPMAN Attending Clinician Unavailable Doctor Unassigned, [place]ings Attending Clinician Unavailable LARISA RICHARDS Attending Clinician Unavailable Charity Rodriguez PT Attending Clinician Unavailable Kelvin Macdonald Attending Clinician Kai Davidson MD Attending Clinician KAI DAVIDSON Attending Clinician Unavailable Joselito Beauchamp MD Attending Clinician Lab, Ang - Db Attending Clinician Unavailable Valeria Solomon Attending Clinician Abdulaziz BILLS, Dhara Attending Clinician DHARA CINTRON Attending Clinician Unavailable John PT, Lindy T Attending Clinician Unavailable Chioma DURAN, Hill Attending Clinician HILL BEDOLLA Attending Clinician Unavailable REFUGIO PAIZ Attending Clinician Unavailable Only, Rosendo Db Test Attending Clinician Unavailable HI KAUFFMAN Attending Clinician Unavailable Hi Rivas Attending Clinician Alejandra Vargas MD Attending Clinician [facility] Attending Clinician Unavailable ALEJANDRA VARGAS Attending Clinician Unavailable Nitza Phillips Attending Clinician Ev Hawkins MD Attending Clinician Yany Schmid Attending Clinician NITZA MADRIGAL Attending Clinician Unavailable Britney CASTELLON, Serina T Attending Clinician Unavailable Christy Guillory Attending Clinician CHRISTY ALICEA Attending Clinician Unavailable Judith Khoury MD Attending Clinician Aleksandra Velez Attending Clinician ALEKSANDRA GUPTA Attending Clinician Unavailable JENIFER STOLL Attending Clinician Unavailable Robin Burgess MD Attending Clinician [facility] Attending Clinician Unavailable Jenifer Gerber Attending Clinician JUDITH KHOURY Attending Clinician Unavailable KERRI PALMER Attending Clinician Unavailable Pob, Adc Lab Main Attending Clinician Unavailable Refugio Paiz DO Attending Clinician Only, Adc Test Attending Clinician Unavailable Pravin BILLS, Britton Attending Clinician Chau BILLS, Elise Attending Clinician Lab, Adc Fam Pob I Attending Clinician Unavailable Noel Espinal Attending Clinician NOEL PRUITT Attending Clinician Unavailable Lab, Pcp Covid Attending Clinician Unavailable ROBIN BURGESS Attending Clinician Unavailable VINCE ODOM Attending Clinician Unavailable REMY HARP Admitting Clinician Unavailable HI KAUFFMAN Admitting Clinician Unavailable JUDITH KHOURY Admitting Clinician Unavailable VINCE ODOM Admitting Clinician Unavailable Payers Payer Name Policy Type Policy Number Effective Date Expiration Date S [facility] [id number] 2016 PPO 00:00:00 Problems Condition Condition Condition Status Onset Resolution Last Treating Co mments Source Name Details Category Date Date Treatment Clinician Date Obstructiv Obstructiv Disease Active U nivers e sleep e sleep 3-31 ity of apnea apnea 00:00: [place] syndrome syndrome 00 Medica l Branch Allergy, Allergy, Disease Active 2021-07 Unive rs initial initial 2-28 ity of encounter encounter 00:00: [place] [address] Medical Branch Essential Essential Disease Active Uni vers hypertensi hypertensi 9-13 it y of on on 00:00: [place] 00 Medical Branch Wellness Wellness Disease Active Unive rs examinatio examinatio 8-29 it y of n n 00:00: [place] 00 Medical Branch Elevated Elevated Disease Active Unive rs blood blood 8-29 ity of pressure pressure 00:00: [place] reading in reading in 00 Co dical office office Branch without without diagnosis diagnosis of of hypertensi hypertensi on on Acute Acute Disease Active Univers bilateral bilateral 5-02 ity of low back low back 00:00: [place] pain pain 00 Medical without without Branch sciatica sciatica Weakness Weakness Disease Active Unive rs of both of both 5- ity of hips hips 00:00: [place] 00 Medical Branch Lumbar Lumbar Disease Active 2022-0 Univers spine spine 5-02 ity of instabilit instabilit [place] Acute Acute Disease Active Univers bilateral bilateral 4-12 ity of low back low back 00:00: [place] pain with pain with 00 Medi james bilateral bilateral Bran ch sciatica sciatica Mixed Mixed Disease Active Univers hyperlipid hyperlipid 4-12 it y of emia emia 00:00: Medical Branch Fatty Fatty Disease Active 2019-07 Univers liver liver 2-10 ity of 00:00: [place] [facility] Vitamin D Vitamin D Disease Active 2019-07 Uni vers deficiency deficiency 1-25 it y of 00:00: [place] [facility] Left thigh Left thigh Disease Active U nivers pain pain 9-15 ity of 00:00: [place] [facility] DDD DDD Disease Active Univers (degenerat (degenerat 9-15 it y of sarika disc sarika disc 00:00: [place] disease), disease), 00 Medi james lumbar lumbar Branch Arthritis Arthritis Disease Active Uni vers of lumbar of lumbar 9-15 ity of spine spine 00:00: [place] [facility] Elevated Elevated Disease Active Unive rs hemoglobin hemoglobin 3-10 it y of 00:00: [place] [facility] Varicocele Varicocele Disease Active U nivers 5-15 ity of 00:00: [place] [facility] Depression Depression Disease Active U nivers 4-26 ity of 00:00: [place] [facility] Obesity Obesity Disease Active Univers (BMI (BMI 5-06 ity of 30-39.9) 30-39.9) 00:00: [place] [facility] Hepatosple Hepatosple Disease Active U nivers nomegaly nomegaly 4-24 ity of 00:00: [place] [facility] Abnormal Abnormal Disease Active Unive rs LFTs LFTs 4-24 ity of 00:00: [place] [facility] Anxiety Anxiety Disease Active Univers disorder disorder 4-21 ity of 00:00: [place] [facility] Hyperchole Hyperchole Disease Active U nivers sterolemia sterolemia 4-21 it y of 00:00: [place] [facility] Allergies, Adverse Reactions, Alerts Allergy Allergy Status Severity Reaction(s) Onset Inactive Treating Comm ents Source Name Type Date Date Clinician Ibuprofe Propensi Active Swelling Lips Univ ers n ty to 01-14 swell, ity of adverse 00:00: taken it [place] reaction 00 since Medical s episode Branch of swelling without issues IBUPROFE DRUG Active Swelling Univer s N INGREDI 01-14 ity of 00:00: [place] [address] Medical [place] Social History Social Habit Start Date Stop Date Quantity Comments Source History SDOH University o f Alcohol Frequency [place] M edical Branch History SDOH University o f Alcohol Std Drinks [place] [facility] History SDWY University o f Alcohol Binge [place] Medic al [place] Gender identity Universit y of [facility] Sexual orientation Univer sity of [facility] Alcohol intake 2023-02-21 2023-02-21 Current drinker Unive rsity of 00:00:00 00:00:00 of alcohol [place] Medical (finding) Branch Exposure to 2022-12-05 2022-12-15 Not sure [facility] SARS-CoV-2 (event) 00:00:00 13:01:00 [facility] History of Social 2022-03-16 2022-03-16 Univers ity of function 00:00:00 00:00:00 [facility] Tobacco use and 2022-03-16 2022-03-16 Smokeless Universit y of exposure 00:00:00 00:00:00 tobacco non-user [facility] dical [place] Alcohol Comment 2016-11-06 2016-11-06 socially Universit y of 00:00:00 00:00:00 [facility] Sex [birth year] At [birth year] Universit y of 00:00:00 00:00:00 [facility] Smoking Status Start Date Stop Date Source Never smoked tobacco [facility] Medications Ordered Filled Start Stop Current Ordering Indication Dosage Frequency Signature Comments Components Source Medication Medication Date Date Medication? Clinician (SIG) Name Name acetaminoph No 650mg 650 mg, U nivers en 03-19 Oral, ity of (TYLENOL) 13:30: 13:56 ONCE, 1 [place] tablet 650 00 :00 dose, On Medic al mg 03/19/23 Branch at 0830, PEGGY meloxicam Yes [id number] 7.5mg Take 1 Univers 7.5 mg 5-24 tablet by ity of tablet 00:00: mouth 2 (two) Medical times Branch daily as needed for Pain (scale 7-10). tiZANidine 2023-0 Yes [id number] 4mg Take 1 Univers 4 mg tablet 5-24 tablet by ity of 00:00: mouth 3 (three) Medical times Branch daily as needed for Pain (scale 7-10). meloxicam 2023-0 Yes [id number] 7.5mg Take 1 Univers 7.5 mg 5-24 tablet by ity of tablet 00:00: mouth (two) Medical times Branch daily as needed for Pain (scale 7-10). tiZANidine 2023-0 Yes [id number] 4mg Take 1 Univers 4 mg tablet 5-24 tablet by ity of 00:00: mouth (three) Medical times Branch daily as needed for Pain (scale 7-10). meloxicam 2023-0 Yes [id number] 7.5mg Take 1 Univers 7.5 mg 5-24 tablet by ity of tablet 00:00: mouth (two) Medical times Branch daily as needed for Pain (scale 7-10). tiZANidine 2023-0 Yes [id number] 4mg Take 1 Univers 4 mg tablet 5-24 tablet by ity of 00:00: mouth (three) Medical times Branch daily as needed for Pain (scale 7-10). meloxicam 2023-0 Yes [id number] 7.5mg Take 1 Univers 7.5 mg 5-24 tablet by ity of tablet 00:00: mouth (two) Medical times Branch daily as needed for Pain (scale 7-10). tiZANidine 2023-0 Yes [id number] 4mg Take 1 Univers 4 mg tablet 5-24 tablet by ity of 00:00: mouth (three) Medical times Branch daily as needed for Pain (scale 7-10). meloxicam 2023-0 Yes [id number] 7.5mg Take 1 Univers 7.5 mg 5-24 tablet by ity of tablet 00:00: mouth (two) Medical times Branch daily as needed for Pain (scale 7-10). tiZANidine 2023-0 Yes [id number] 4mg Take 1 Univers 4 mg tablet 5-24 tablet by ity of 00:00: mouth 3 (three) Medical times Branch daily as needed for Pain (scale 7-10). meloxicam 2023-0 Yes [id number] 7.5mg Take 1 Univers 7.5 mg 5-24 tablet by ity of tablet 00:00: mouth 2 (two) Medical times Branch daily as needed for Pain (scale 7-10). tiZANidine 2023-0 Yes [id number] 4mg Take 1 Univers 4 mg tablet 5-24 tablet by ity of 00:00: mouth (three) Medical times Branch daily as needed for Pain (scale 7-10). meloxicam 2023-0 Yes [id number] 7.5mg Take 1 Univers 7.5 mg 5-24 tablet by ity of tablet 00:00: mouth (two) Medical times Branch daily as needed for Pain (scale 7-10). tiZANidine 2023-0 Yes [id number] 4mg Take 1 Univers 4 mg tablet 5-24 tablet by ity of 00:00: mouth (three) Medical times Branch daily as needed for Pain (scale 7-10). meloxicam 2023-0 Yes [id number] 7.5mg Take 1 Univers 7.5 mg 5-24 tablet by ity of tablet 00:00: mouth (two) Medical times Branch daily as needed for Pain (scale 7-10). tiZANidine 2023-0 Yes [id number] 4mg Take 1 Univers 4 mg tablet 5-24 tablet by ity of 00:00: mouth (three) Medical times Branch daily as needed for Pain (scale 7-10). meloxicam 2023-0 Yes [id number] 7.5mg Take 1 Univers 7.5 mg 5-24 tablet by ity of tablet 00:00: mouth (two) Medical times Branch daily as needed for Pain (scale 7-10). tiZANidine 2023-0 Yes [id number] 4mg Take 1 Univers 4 mg tablet 5-24 tablet by ity of 00:00: mouth (three) Medical times Branch daily as needed for Pain (scale 7-10). meloxicam 2023-0 Yes [id number] 7.5mg Take 1 Univers 7.5 mg 5-24 tablet by ity of tablet 00:00: mouth 2 (two) Medical times Branch daily as needed for Pain (scale 7-10). tiZANidine 2023-0 Yes [id number] 4mg Take 1 Univers 4 mg tablet 5-24 tablet by ity of 00:00: mouth 3 (three) Medical times Branch daily as needed for Pain (scale 7-10). meloxicam 2023-0 Yes [id number] 7.5mg Take 1 Univers 7.5 mg 5-24 tablet by ity of tablet 00:00: mouth 2 (two) Medical times Branch daily as needed for Pain (scale 7-10). tiZANidine 2023-0 Yes [id number] 4mg Take 1 Univers 4 mg tablet 5-24 tablet by ity of 00:00: mouth 3 (three) Medical times Branch daily as needed for Pain (scale 7-10). meloxicam 2023-0 Yes [id number] 7.5mg Take 1 Univers 7.5 mg 5-24 tablet by ity of tablet 00:00: mouth 2 (two) Medical times Branch daily as needed for Pain (scale 7-10). tiZANidine 2023-0 Yes [id number] 4mg Take 1 Univers 4 mg tablet 5-24 tablet by ity of 00:00: mouth 3 (three) Medical times Branch daily as needed for Pain (scale 7-10). meloxicam 2023-0 Yes [id number] 7.5mg Take 1 Univers 7.5 mg 5-24 tablet by ity of tablet 00:00: mouth 2 (two) Medical times Branch daily as needed for Pain (scale 7-10). tiZANidine 2023-0 Yes [id number] 4mg Take 1 Univers 4 mg tablet 5-24 tablet by ity of 00:00: mouth 3 (three) Medical times Branch daily as needed for Pain (scale 7-10). dexamethaso 2022-0 2023- No [id number] 15mg Univers ne sod phos 08-14 ity of PF 16:30: 15:24 [place] injection 00 :00 Medical 15 mg Branch dexamethaso 0 2022- No [id number] 15mg 15 mg, Univers ne sod phos 08-14 Epidural, it y of PF 16:30: 15:24 ONCE, 1 [place] injection 00 :00 dose, On Medica l 15 mg Fri Branch 08/14/22 at 1030, Routine dexamethaso 2022-0 2022- No [id number] 15mg Univers ne sod phos 08-14 ity of PF 16:30: 15:24 [place] injection 00 :00 Medical 15 mg Branch dexamethaso 0 2022- No [id number] 15mg 15 mg, Univers ne sod phos 08-14 Epidural, it y of PF 16:30: 15:24 ONCE, 1 [place] injection 00 :00 dose, On Medica l 15 mg Fri Branch 08/14/22 at 1030, Routine NaCl 0.9% 2022-0 2022- No [id number] 4.5mL U nivers (NS) 08-14 ity of injection 16:15: 15:25 [place] 4.5 mL 00 :00 Medical Branch lidocaine 2022-0 2022- No [id number] 10mL Un vashti 1% (PF) 08-14 ity of (XYLOCAINE) 16:15: 15:25 [place] injection 00 :00 Medical 10 mL Branch lidocaine 2022-0 2022- No [id number] 10mL 10 mL, Univers 1% (PF) 08-14 Infiltrati ity o f (XYLOCAINE) 16:15: 15:25 on, ONCE, [place] injection 00 :00 1 dose, On Medi james 10 mL Fri Branch 08/14/22 at 1015, Routine NaCl 0.9% 2022-0 2022- No [id number] 4.5mL 4.5 mL, Univers (NS) 08-14 Infiltrati ity of injection 16:15: 15:25 [place] 4.5 mL 00 :00 1 dose, On Medical Fri Branch 08/14/22 at 1015, Routine NaCl 0.9% 2022-0 2022- No [id number] 4.5mL U nivers (NS) 08-14 ity of injection 16:15: 15:25 [place] 4.5 mL 00 :00 Medical Branch lidocaine 2022-0 2022- No [id number] 10mL Un vashti 1% (PF) 08-14 ity of (XYLOCAINE) 16:15: 15:25 [place] injection 00 :00 Medical 10 mL Branch lidocaine 2022-0 2022- No [id number] 10mL 10 mL, Univers 1% (PF) 08-14 Infiltrati ity o f (XYLOCAINE) 16:15: 15:25 on, ONCE, [place] injection 00 :00 1 dose, On Medi james 10 mL Fri Branch 08/14/22 at 1015, Routine NaCl 0.9% 2022- No [id number] 4.5mL 4.5 mL, Univers (NS) 08-14 Infiltrati ity of injection 16:15: 15:25 [place]CE, [place] 4.5 [place] 00 :00 1 dose, On Medical Fri Branch 08/14/22 at 1015, Routine lactated 2022-0 2022- No [id number] 500mL Un vashti ringers IV 08-14 ity of infusion 15:30: 14:50 [place] 500 mL 00 :00 Medical Branch lactated 2022-0 2022- No [id number] 500mL at 20 U nivers ringers IV 08-14 mL/hr, 500 it y of infusion 15:30: 14:50 mL, IV [place] 500 mL 00 :00 Infusion, Medical ONCE, 1 Branch dose, On Wed08/14/22 at 0930, Routine lactated 2022-0 2022- No [id number] 500mL Un vashti ringers IV 08-14 ity of infusion 15:30: 14:50 [place] 500 mL 00 :00 Medical Branch lactated 2022-0 2022- No [id number] 500mL at 20 U nivers ringers IV 08-14 mL/hr, 500 it y of infusion 15:30: 14:50 mL, IV [place] 500 mL 00 :00 Infusion, Medical ONCE, 1 Branch dose, On Wed08/14/22 at 0930, Routine meloxicam 2022-0 Yes [id number] 7.5mg Take 1 Univers 7.5 mg 1-25 tablet by ity of tablet 00:00: mouth 2 [place] 00 (two) Medical times Branch daily as needed for Pain (scale 4-6) for up to 180 doses. meloxicam 3-0 Yes [id number] 7.5mg Take 1 Univers 7.5 mg 1-25 tablet by ity of tablet 00:00: mouth (two) Medical times Branch daily as needed for Pain (scale 4-6) for up to 180 doses. meloxicam 3-0 Yes [id number] 7.5mg Take 1 Univers 7.5 mg 1-25 tablet by ity of tablet 00:00: mouth (two) Medical times Branch daily as needed for Pain (scale 4-6) for up to 180 doses. meloxicam 3-0 Yes [id number] 7.5mg Take 1 Univers 7.5 mg 1-25 tablet by ity of tablet 00:00: mouth (two) Medical times Branch daily as needed for Pain (scale 4-6) for up to 180 doses. meloxicam 3-0 Yes [id number] 7.5mg Take 1 Univers 7.5 mg 1-25 tablet by ity of tablet 00:00: mouth (two) Medical times Branch daily as needed for Pain (scale 4-6) for up to 180 doses. meloxicam 3-0 Yes [id number] 7.5mg Take 1 Univers 7.5 mg 1-25 tablet by ity of tablet 00:00: mouth (two) Medical times Branch daily as needed for Pain (scale 4-6) for up to 180 doses. meloxicam 3-0 Yes [id number] 7.5mg Take 1 Univers 7.5 mg 1-25 tablet by ity of tablet 00:00: mouth (two) Medical times Branch daily as needed for Pain (scale 4-6) for up to 180 doses. meloxicam 3-0 Yes [id number] 7.5mg Take 1 Univers 7.5 mg 1-25 tablet by ity of tablet 00:00: mouth (two) Medical times Branch daily as needed for Pain (scale 4-6) for up to 180 doses. meloxicam 3-0 Yes [id number] 7.5mg Take 1 Univers 7.5 mg 1-25 tablet by ity of tablet 00:00: mouth (two) Medical times Branch daily as needed for Pain (scale 4-6) for up to 180 doses. meloxicam 3-0 Yes [id number] 7.5mg Take 1 Univers 7.5 mg 1-25 tablet by ity of tablet 00:00: mouth (two) Medical times Branch daily as needed for Pain (scale 4-6) for up to 180 doses. meloxicam 3-0 Yes [id number] 7.5mg Take 1 Univers 7.5 mg 1-25 tablet by ity of tablet 00:00: mouth (two) Medical times Branch daily as needed for Pain (scale 4-6) for up to 180 doses. meloxicam 3-0 Yes [id number] 7.5mg Take 1 Univers 7.5 mg 1-25 tablet by ity of tablet 00:00: mouth (two) Medical times Branch daily as needed for Pain (scale 4-6) for up to 180 doses. meloxicam 3-0 Yes [id number] 7.5mg Take 1 Univers 7.5 mg 1-25 tablet by ity of tablet 00:00: mouth (two) Medical times Branch daily as needed for Pain (scale 4-6) for up to 180 doses. meloxicam 3-0 Yes [id number] 7.5mg Take 1 Univers 7.5 mg 1-25 tablet by ity of tablet 00:00: mouth (two) Medical times Branch daily as needed for Pain (scale 4-6) for up to 180 doses. meloxicam 3-0 Yes [id number] 7.5mg Take 1 Univers 7.5 mg 1-25 tablet by ity of tablet 00:00: mouth (two) Medical times Branch daily as needed for Pain (scale 4-6) for up to 180 doses. meloxicam 3-0 Yes [id number] 7.5mg Take 1 Univers 7.5 mg 1-25 tablet by ity of tablet 00:00: mouth 2 (two) Medical times Branch daily as needed for Pain (scale 4-6) for up to 180 doses. meloxicam 3-0 Yes [id number] 7.5mg Take 1 Univers 7.5 mg 1-25 tablet by ity of tablet 00:00: mouth 2 (two) Medical times Branch daily as needed for Pain (scale 4-6) for up to 180 doses. meloxicam 2023-0 Yes [id number] 7.5mg Take 1 Univers 7.5 mg 1-25 tablet by ity of tablet 00:00: mouth 2 (two) Medical times Branch daily as needed for Pain (scale 4-6) for up to 180 doses. meloxicam 3-0 Yes [id number] 7.5mg Take 1 Univers 7.5 mg 1-25 tablet by ity of tablet 00:00: mouth 2 (two) Medical times Branch daily as needed for Pain (scale 4-6) for up to 180 doses. meloxicam 3-0 Yes [id number] 7.5mg Take 1 Univers 7.5 mg 1-25 tablet by ity of tablet 00:00: mouth (two) Medical times Branch daily as needed for Pain (scale 4-6) for up to 180 doses. meloxicam 3-0 Yes [id number] 7.5mg Take 1 Univers 7.5 mg 1-25 tablet by ity of tablet 00:00: mouth (two) Medical times Branch daily as needed for Pain (scale 4-6) for up to 180 doses. meloxicam 3-0 Yes [id number] 7.5mg Take 1 Univers 7.5 mg 1-25 tablet by ity of tablet 00:00: mouth (two) Medical times Branch daily as needed for Pain (scale 4-6) for up to 180 doses. meloxicam 2023-0 Yes [id number] 7.5mg Take 1 Univers 7.5 mg 1-25 tablet by ity of tablet 00:00: mouth (two) Medical times Branch daily as needed for Pain (scale 4-6) for up to 180 doses. meloxicam 2023-0 Yes [id number] 7.5mg Take 1 Univers 7.5 mg 1-25 tablet by ity of tablet 00:00: mouth 2 (two) Medical times Branch daily as needed for Pain (scale 4-6) for up to 180 doses. meloxicam 2023-0 Yes [id number] 7.5mg Take 1 Univers 7.5 mg 1-25 tablet by ity of tablet 00:00: mouth 2 (two) Medical times Branch daily as needed for Pain (scale 4-6) for up to 180 doses. meloxicam 3-0 Yes [id number] 7.5mg Take 1 Univers 7.5 mg 1-25 tablet by ity of tablet 00:00: mouth 2 (two) Medical times Branch daily as needed for Pain (scale 4-6) for up to 180 doses. meloxicam 3-0 Yes [id number] 7.5mg Take 1 Univers 7.5 mg 1-25 tablet by ity of tablet 00:00: mouth 2 (two) Medical times Branch daily as needed for Pain (scale 4-6) for up to 180 doses. meloxicam 3-0 Yes [id number] 7.5mg Take 1 Univers 7.5 mg 1-25 tablet by ity of tablet 00:00: mouth 2 (two) Medical times Branch daily as needed for Pain (scale 4-6) for up to 180 doses. meloxicam 3-0 Yes [id number] 7.5mg Take 1 Univers 7.5 mg 1-25 tablet by ity of tablet 00:00: mouth (two) Medical times Branch daily as needed for Pain (scale 4-6) for up to 180 doses. meloxicam 3-0 Yes [id number] 7.5mg Take 1 Univers 7.5 mg 1-25 tablet by ity of tablet 00:00: mouth 2 (two) Medical times Branch daily as needed for Pain (scale 4-6) for up to 180 doses. meloxicam 3-0 Yes [id number] 7.5mg Take 1 Univers 7.5 mg 1-25 tablet by ity of tablet 00:00: mouth 2 (two) Medical times Branch daily as needed for Pain (scale 4-6) for up to 180 doses. meloxicam 3-0 Yes [id number] 7.5mg Take 1 Univers 7.5 mg 1-25 tablet by ity of tablet 00:00: mouth 2 (two) Medical times Branch daily as needed for Pain (scale 4-6) for up to 180 doses. meloxicam 3-0 Yes [id number] 7.5mg Take 1 Univers 7.5 mg 1-25 tablet by ity of tablet 00:00: mouth 2 (two) Medical times Branch daily as needed for Pain (scale 4-6) for up to 180 doses. meloxicam 3-0 Yes [id number] 7.5mg Take 1 Univers 7.5 mg 1-25 tablet by ity of tablet 00:00: mouth 2 (two) Medical times Branch daily as needed for Pain (scale 4-6) for up to 180 doses. meloxicam 3-0 Yes [id number] 7.5mg Take 1 Univers 7.5 mg 1-25 tablet by ity of tablet 00:00: mouth 2 (two) Medical times Branch daily as needed for Pain (scale 4-6) for up to 180 doses. meloxicam 3-0 Yes [id number] 7.5mg Take 1 Univers 7.5 mg 1-25 tablet by ity of tablet 00:00: mouth 2 (two) Medical times Branch daily as needed for Pain (scale 4-6) for up to 180 doses. meloxicam 3-0 Yes [id number] 7.5mg Take 1 Univers 7.5 mg 1-25 tablet by ity of tablet 00:00: mouth (two) Medical times Branch daily as needed for Pain (scale 4-6) for up to 180 doses. meloxicam 3-0 Yes [id number] 7.5mg Take 1 Univers 7.5 mg 1-25 tablet by ity of tablet 00:00: mouth 2 (two) Medical times Branch daily as needed for Pain (scale 4-6) for up to 180 doses. meloxicam 3-0 Yes [id number] 7.5mg Take 1 Univers 7.5 mg 1-25 tablet by ity of tablet 00:00: mouth 2 (two) Medical times Branch daily as needed for Pain (scale 4-6) for up to 180 doses. meloxicam 3-0 Yes [id number] 7.5mg Take 1 Univers 7.5 mg 1-25 tablet by ity of tablet 00:00: mouth 2 (two) Medical times Branch daily as needed for Pain (scale 4-6) for up to 180 doses. meloxicam 3-0 Yes [id number] 7.5mg Take 1 Univers 7.5 mg 1-25 tablet by ity of tablet 00:00: mouth 2 (two) Medical times Branch daily as needed for Pain (scale 4-6) for up to 180 doses. meloxicam 3-0 Yes [id number] 7.5mg Take 1 Univers 7.5 mg 1-25 tablet by ity of tablet 00:00: mouth 2 (two) Medical times Branch daily as needed for Pain (scale 4-6) for up to 180 doses. meloxicam 3-0 Yes [id number] 7.5mg Take 1 Univers 7.5 mg 1-25 tablet by ity of tablet 00:00: mouth 2 (two) Medical times Branch daily as needed for Pain (scale 4-6) for up to 180 doses. meloxicam 3-0 Yes [id number] 7.5mg Take 1 Univers 7.5 mg 1-25 tablet by ity of tablet 00:00: mouth 2 (two) Medical times Branch daily as needed for Pain (scale 4-6) for up to 180 doses. meloxicam 2022-0 Yes [id number] 7.5mg Take 1 [facility] 7.5 mg 1-25 tablet by [facility] tablet 00:00: mouth (two) Medical times Branch daily as needed for Pain (scale 4-6) for up to 180 doses. meloxicam 3-0 Yes [id number] 7.5mg Take 1 [facility] 7.5 mg 1-25 tablet by [facility] tablet 00:00: mouth (two) Medical times Branch daily as needed for Pain (scale 4-6) for up to 180 doses. meloxicam 3-0 Yes [id number] 7.5mg Take 1 [facility] 7.5 mg 1-25 tablet by [facility] tablet 00:00: mouth 2 (two) Medical times Branch daily as needed for Pain (scale 4-6) for up to 180 doses. meloxicam 3-0 Yes [id number] 7.5mg Take 1 [facility] 7.5 mg 1-25 tablet by [facility] tablet 00:00: mouth 2 (two) Medical times Branch daily as needed for Pain (scale 4-6) for up to 180 doses. meloxicam 3-0 Yes [id number] 7.5mg Take 1 [facility] 7.5 mg 1-25 tablet by [facility] of tablet 00:00: mouth 2 (two) Medical times Branch daily as needed for Pain (scale 4-6) for up to 180 doses. meloxicam 3-0 Yes [id number] 7.5mg Take 1 [facility] 7.5 mg 1-25 tablet by [facility] of tablet 00:00: mouth 2 (two) Medical times Branch daily as needed for Pain (scale 4-6) for up to 180 doses. meloxicam 3-0 Yes [id number] 7.5mg Take 1 [facility] 7.5 mg 1-25 tablet by [facility] of tablet 00:00: mouth 2 (two) Medical times Branch daily as needed for Pain (scale 4-6) for up to 180 doses. meloxicam 3-0 Yes [id number] 7.5mg Take 1 [facility] 7.5 mg 1-25 tablet by [facility] of tablet 00:00: mouth 2 (two) Medical times Branch daily as needed for Pain (scale 4-6) for up to 180 doses. meloxicam 3-0 Yes [id number] 7.5mg Take 1 [facility] 7.5 mg 1-25 tablet by [facility] of tablet 00:00: mouth 2 (two) Medical times Branch daily as needed for Pain (scale 4-6) for up to 180 doses. meloxicam 3-0 Yes [id number] 7.5mg Take 1 [facility] 7.5 mg 1-25 tablet by [facility] of tablet 00:00: mouth (two) Medical times Branch daily as needed for Pain (scale 4-6) for up to 180 doses. meloxicam 3-0 Yes [id number] 7.5mg Take 1 [facility] 7.5 mg 1-25 tablet by [facility] of tablet 00:00: mouth 2 (two) Medical times Branch daily as needed for Pain (scale 4-6) for up to 180 doses. methocarbam 3-0 2022- No [id number] 500mg Take 1 [facility] oL 500 mg 1-25 04-26 tablet by [facility] tablet 00:00: 04:59 mouth at [place] 00 :00 bedtime Medical for 90 Branch days. methocarbam 3-0 2022- No [id number] 500mg Take 1 [facility] oL 500 mg 1-25 -26 tablet by [facility] of tablet 00:00: 04:59 mouth at [place] 00 :00 bedtime Medical for 90 Branch days. methocarbam 3-0 2023- No [id number] 500mg Take 1 [facility] oL 500 mg 1-25 -26 tablet by [facility] of tablet 00:00: 04:59 mouth at [place] 00 :00 bedtime Medical for 90 Branch days. methocarbam 2022-0 3- No [id number] 500mg Take 1 [facility] oL 500 mg 1-25 -26 tablet by [facility] of tablet 00:00: 04:59 mouth at [place] 00 :00 bedtime Medical for 90 Branch days. methocarbam 2022-0 3- No [id number] 500mg Take 1 [facility] oL 500 mg 1-25 -26 tablet by [facility] of tablet 00:00: 04:59 mouth at [place] 00 :00 bedtime Medical for 90 Branch days. methocarbam 2022-0 2022- No [id number] 500mg Take 1 [facility] oL 500 mg 1-25 -26 tablet by [facility] of tablet 00:00: 04:59 mouth at [place] 00 :00 bedtime Medical for 90 Branch days. methocarbam 2022-0 2022- No [id number] 500mg Take 1 [facility] oL 500 mg 1-25 -26 tablet by [facility] of tablet 00:00: 04:59 mouth at [place] 00 :00 bedtime Medical for 90 Branch days. methocarbam 2022-0 3- No [id number] 500mg Take 1 [facility] oL 500 mg -25 -26 tablet by [facility] of tablet 00:00: 04:59 mouth at [place] 00 :00 bedtime Medical for 90 Branch days. methocarbam 2022-0 3- No [id number] 500mg Take 1 [facility] oL 500 mg 1-25 -26 tablet by [facility] of tablet 00:00: 04:59 mouth at [place] 00 :00 bedtime Medical for 90 Branch days. methocarbam 3-0 2023- No [id number] 500mg Take 1 [facility] oL 500 mg 1-25 -26 tablet by [facility] of tablet 00:00: 04:59 mouth at [place] 00 :00 bedtime Medical for 90 Branch days. methocarbam 3-0 2023- No [id number] 500mg Take 1 [facility] oL 500 mg 1-25 04-26 tablet by [facility] of tablet 00:00: 04:59 mouth at [place] 00 :00 bedtime Medical for 90 Branch days. methocarbam 2022-0 2022- No [id number] 500mg Take 1 [facility] oL 500 mg 1-25 -26 tablet by [facility] of tablet 00:00: 04:59 mouth at [place] 00 :00 bedtime Medical for 90 Branch days. methocarbam 2022-0 2022- No [id number] 500mg Take 1 [facility] oL 500 mg 1-25 04-26 tablet by [facility] of tablet 00:00: 04:59 mouth at [place] 00 :00 bedtime Medical for 90 Branch days. methocarbam 2022-0 2022- No [id number] 500mg Take 1 [facility] oL 500 mg 1-25 04-26 tablet by [facility] of tablet 00:00: 04:59 mouth at [place] 00 :00 bedtime Medical for 90 Branch days. methocarbam 2022-0 2022- No [id number] 500mg Take 1 [facility] oL 500 mg 1-25 -26 tablet by [facility] of tablet 00:00: 04:59 mouth at [place] 00 :00 bedtime Medical for 90 Branch days. methocarbam 2022-0 2022- No [id number] 500mg Take 1 [facility] oL 500 mg 1-25 -26 tablet by [facility] of tablet 00:00: 04:59 mouth at [place] 00 :00 bedtime Medical for 90 Branch days. methocarbam 2022-0 2022- No [id number] 500mg Take 1 [facility] oL 500 mg 1-25 -26 tablet by [facility] of tablet 00:00: 04:59 mouth at [place] 00 :00 bedtime Medical for 90 Branch days. methocarbam 2022-0 2022- No [id number] 500mg Take 1 [facility] oL 500 mg 1-25 04-26 tablet by [facility] of tablet 00:00: 04:59 mouth at [place] 00 :00 bedtime Medical for 90 Branch days. methocarbam 2022-0 2022- No [id number] 500mg Take 1 [facility] oL 500 mg 1-25 04-26 tablet by [facility] of tablet 00:00: 04:59 mouth at [place] 00 :00 bedtime Medical for 90 Branch days. methocarbam 2022 No [id number] 500mg Take 1 [facility] oL 500 mg 08-12- tablet by [facility] of tablet 00:00: 04:59 mouth at [place] 00 :00 bedtime Medical for 90 Branch days. methocarbam No [id number] 500mg Take 1 [facility] oL 500 mg 08-12- tablet by [facility] of tablet 00:00: 04:59 mouth at [place] 00 :00 bedtime Medical for 90 Branch days. methocarbam No [id number] 500mg Take 1 [facility] oL 500 mg 08-12- tablet by [facility] of tablet 00:00: 04:59 mouth at [place] 00 :00 bedtime Medical for 90 Branch days. methylPREDN 2021-07 No [id number] Take by [facility] ISolone 08-15 mouth ity of (MEDROL, 00:00: 05:59 [place] 4 mg 00 :00 CTIONS for Med ical tablets 5 days. Branch follow package directions methylPREDN 2021-07 No [id number] Take by [facility] ISolone 08-15 mouth ity of (MEDROL, 00:00: 05:59 [place] 4 mg 00 :00 CTIONS for Med ical tablets 5 days. Branch follow package directions ATORVASTATI 2021-07 Yes [id number] TAKE 1 [facility] N 20 mg 1-21 TABLET BY [facility] of tablet 00:00: MOUTH [place] 00 EVERYDAY Medical [facility] B[facility]TIME [facility] Yes [id number] TAKE 1 [facility] N 20 mg 1-21 TABLET BY it[facility] of tablet 00:00: MOUTH [place] 00 EVERYDAY Medical AT BEDTIME [facility] ATORVASTA 2021-07 Yes [id number] TAKE 1 [facility] N 20 mg 1-21 TABLET BY ity of tablet 00:00: MOUTH [place] 00 EVERYDAY Medical AT BEDTIME [facility] ATORVASTA 2021-07 Yes [id number] TAKE 1 [facility] N 20 mg 1-21 TABLET BY it[facility] of tablet 00:00: MOUTH [place] 00 EVERYDAY Medical AT BEDTIME [facility] ATORVASTA 2021-07 Yes [id number] TAKE 1 [facility] N 20 mg 1-21 TABLET BY it[facility] of tablet 00:00: MOUTH [place] 00 EVERYDAY Medical AT BEDTIME [facility] ATORVASTATI 2021- Yes [id number] TAKE 1 [facility] N 20 mg 1-21 TABLET BY it[facility] of tablet 00:00: MOUTH [place] 00 EVERYDAY Medical AT BEDTIME [facility] 2021- Yes [id number] TAKE 1 [facility] N 20 mg 1-21 TABLET BY it[facility] of tablet 00:00: MOUTH [place] EVERYDAY Medical AT BEDTIME [facility] 2021-07 Yes [id number] TAKE 1 [facility] N 20 mg 1-21 TABLET BY it[facility] of tablet 00:00: MOUTH [place] 00 EVERYDAY Medical AT BEDTIME [facility] 2021- Yes [id number] TAKE 1 [facility] N 20 mg 1-21 TABLET BY it[facility] of tablet 00:00: MOUTH [place] EVERYDAY Medical AT BEDTIME [facility] 2021-07 Yes [id number] TAKE 1 [facility] N 20 mg 1-21 TABLET BY it[facility] of tablet 00:00: MOUTH [place] EVERYDAY Medical AT BEDTIME [facility] 2021-07 Yes [id number] TAKE 1 [facility] N 20 mg 1-21 TABLET BY it[facility] of tablet 00:00: MOUTH [place] EVERYDAY Medical AT BEDTIME [facility] 2021- Yes [id number] TAKE 1 [facility] N 20 mg 1-21 TABLET BY it[facility] of tablet 00:00: MOUTH [place] EVERYDAY Medical AT BEDTIME [facility] 2021- Yes [id number] TAKE 1 [facility] N 20 mg 1-21 TABLET BY ity of tablet 00:00: MOUTH EVERYDAY Medical AT BEDTIME [facility] 2021- Yes [id number] TAKE 1 [facility] N 20 mg 1-21 TABLET BY it[facility] of tablet 00:00: MOUTH [place] 00 EVERYDAY Medical AT BEDTIME [facility] 2021- Yes [id number] TAKE 1 [facility] N 20 mg 1-21 TABLET BY ity of tablet 00:00: MOUTH [place] 00 EVERYDAY Medical AT BEDTIME [facility] 2021- Yes [id number] TAKE 1 [facility] N 20 mg 1-21 TABLET BY ity of tablet 00:00: MOUTH EVERYDAY Medical AT BEDTIME [facility] 2021-07 Yes [id number] TAKE 1 [facility] N 20 mg 1-21 TABLET BY ity of tablet 00:00: MOUTH [place] EVERYDAY Medical AT BEDTIME [facility] 2021-07 Yes [id number] TAKE 1 [facility] N 20 mg 1-21 TABLET BY ity of tablet 00:00: MOUTH [place] 00 EVERYDAY Medical AT BEDTIME Branch [facility] 2021-07 Yes [id number] TAKE 1 [facility] N 20 mg 1-21 TABLET BY ity of tablet 00:00: MOUTH [place] 00 EVERYDAY Medical AT BEDTIME [facility] 2021-07 Yes [id number] TAKE 1 [facility] N 20 mg 1-21 TABLET BY ity of tablet 00:00: MOUTH [place] EVERYDAY Medical AT BEDTIME [facility] 2021-07 Yes [id number] TAKE 1 [facility] N 20 mg 1-21 TABLET BY ity of tablet 00:00: MOUTH [place] 00 EVERYDAY Medical AT BEDTIME [facility] 2021-07 Yes [id number] TAKE 1 [facility] N 20 mg 1-21 TABLET BY ity of tablet 00:00: MOUTH [place] EVERYDAY Medical AT BEDTIME [facility] 2021-07 Yes [id number] TAKE 1 [facility] N 20 mg 1-21 TABLET BY ity of tablet 00:00: MOUTH [place] EVERYDAY Medical AT BEDTIME [facility] 2021-07 Yes [id number] TAKE 1 [facility] N 20 mg 1-21 TABLET BY ity of tablet 00:00: MOUTH [place] 00 EVERYDAY Medical AT BEDTIME [facility] 2021-07 Yes [id number] TAKE 1 [facility] N 20 mg 1-21 TABLET BY ity of tablet 00:00: MOUTH [place] EVERYDAY Medical AT BEDTIME [facility] 2021-07 Yes [id number] TAKE 1 [facility] N 20 mg 1-21 TABLET BY ity of tablet 00:00: MOUTH [place] EVERYDAY Medical AT BEDTIME [facility] 2021-07 Yes [id number] TAKE 1 [facility] N 20 mg 1-21 TABLET BY ity of tablet 00:00: MOUTH [place] 00 EVERYDAY Medical AT BEDTIME [facility] 2021- Yes [id number] TAKE 1 [facility] N 20 mg 1-21 TABLET BY ity of tablet 00:00: MOUTH [place] 00 EVERYDAY Medical AT BEDTIME [facility] 2021- Yes [id number] TAKE 1 [facility] N 20 mg 1-21 TABLET BY ity of tablet 00:00: MOUTH [place] 00 EVERYDAY Medical AT BEDTIME [facility] 2021-07 Yes [id number] TAKE 1 [facility] N 20 mg 1-21 TABLET BY ity of tablet 00:00: MOUTH [place] 00 EVERYDAY Medical AT BEDTIME [facility] 2021- Yes [id number] TAKE 1 [facility] N 20 mg 1-21 TABLET BY ity of tablet 00:00: MOUTH [place] 00 EVERYDAY Medical AT BEDTIME [facility] 2021-07 Yes [id number] TAKE 1 [facility] N 20 mg 1-21 TABLET BY ity of tablet 00:00: MOUTH [place] 00 EVERYDAY Medical AT BEDTIME [facility] 2021-07 Yes [id number] TAKE 1 [facility] N 20 mg 1-21 TABLET BY ity of tablet 00:00: MOUTH [place] 00 EVERYDAY Medical AT BEDTIME [facility] 2021-07 Yes [id number] TAKE 1 [facility] N 20 mg 1-21 TABLET BY ity of tablet 00:00: MOUTH [place] 00 EVERYDAY Medical AT BEDTIME [facility] 2021-07 Yes [id number] TAKE 1 [facility] N 20 mg 1-21 TABLET BY ity of tablet 00:00: MOUTH [place] EVERYDAY Medical AT BEDTIME [facility] 2021-07 Yes [id number] TAKE 1 [facility] N 20 mg 1-21 TABLET BY ity of tablet 00:00: MOUTH [place] 00 EVERYDAY Medical AT BEDTIME [facility] 2021-07 Yes [id number] TAKE 1 [facility] N 20 mg 1-21 TABLET BY ity of tablet 00:00: MOUTH [place] 00 EVERYDAY Medical AT BEDTIME [facility] 2021-07 Yes [id number] TAKE 1 [facility] N 20 mg 1-21 TABLET BY ity of tablet 00:00: MOUTH [place] 00 EVERYDAY Medical AT BEDTIME [facility] 2021- Yes [id number] TAKE 1 [facility] N 20 mg 1-21 TABLET BY ity of tablet 00:00: MOUTH [place] 00 EVERYDAY Medical AT BEDTIME [facility] 2021- Yes [id number] TAKE 1 [facility] N 20 mg 1-21 TABLET BY ity of tablet 00:00: MOUTH [place] 00 EVERYDAY Medical AT BEDTIME [facility] 2021- Yes [id number] TAKE 1 [facility] N 20 mg 1-21 TABLET BY ity of tablet 00:00: MOUTH [place] 00 EVERYDAY Medical AT BEDTIME [facility] 2021-07 Yes [id number] TAKE 1 [facility] N 20 mg 1-21 TABLET BY ity of tablet 00:00: MOUTH [place] 00 EVERYDAY Medical AT BEDTIME [facility] 2021- Yes [id number] TAKE 1 [facility] N 20 mg 1-21 TABLET BY ity of tablet 00:00: MOUTH [place] 00 EVERYDAY Medical AT BEDTIME [facility] 2021-07 Yes [id number] TAKE 1 [facility] N 20 mg 1-21 TABLET BY ity of tablet 00:00: MOUTH [place] 00 EVERYDAY Medical AT BEDTIME [facility] 2021-07 Yes [id number] TAKE 1 [facility] N 20 mg 1-21 TABLET BY ity of tablet 00:00: MOUTH [place] 00 EVERYDAY Medical AT BEDTIME [facility] 2021-07 Yes [id number] TAKE 1 [facility] N 20 mg 1-21 TABLET BY ity of tablet 00:00: MOUTH [place] 00 EVERYDAY Medical AT BEDTIME [facility] 2021-07 Yes [id number] TAKE 1 [facility] N 20 mg 1-21 TABLET BY ity of tablet 00:00: MOUTH [place] EVERYDAY Medical AT BEDTIME [facility] 2021-07 Yes [id number] TAKE 1 [facility] N 20 mg 1-21 TABLET BY ity of tablet 00:00: MOUTH [place] 00 EVERYDAY Medical AT BEDTIME [facility] 2021-07 Yes [id number] TAKE 1 [facility] N 20 mg 1-21 TABLET BY ity of tablet 00:00: MOUTH [place] 00 EVERYDAY Medical AT BEDTIME [facility] 2021- Yes [id number] TAKE 1 [facility] N 20 mg 1-21 TABLET BY ity of tablet 00:00: MOUTH [place] EVERYDAY Medical AT BEDTIME [facility] 2021- Yes [id number] TAKE 1 [facility] N 20 mg 1-21 TABLET BY ity of tablet 00:00: MOUTH [place] 00 EVERYDAY Medical AT BEDTIME [facility] 2021- Yes [id number] TAKE 1 [facility] N 20 mg 1-21 TABLET BY ity of tablet 00:00: MOUTH [place] 00 EVERYDAY Medical AT BEDTIME [facility] 2021-07 Yes [id number] TAKE 1 [facility] N 20 mg 1-21 TABLET BY ity of tablet 00:00: MOUTH [place] 00 EVERYDAY Medical AT BEDTIME [facility] 2021-07 Yes [id number] TAKE 1 [facility] N 20 mg 1-21 TABLET BY ity of tablet 00:00: MOUTH [place] 00 EVERYDAY Medical AT BEDTIME [facility] 2021-07 Yes [id number] TAKE 1 [facility] N 20 mg 1-21 TABLET BY ity of tablet 00:00: MOUTH [place] 00 EVERYDAY Medical AT BEDTIME [facility] 2021-07 Yes [id number] TAKE 1 [facility] N 20 mg 1-21 TABLET BY ity of tablet 00:00: MOUTH [place] EVERYDAY Medical AT BEDTIME [facility] 2021-07 Yes [id number] TAKE 1 [facility] N 20 mg 1-21 TABLET BY ity of tablet 00:00: MOUTH [place] 00 EVERYDAY Medical AT BEDTIME [facility] 2021-07 Yes [id number] TAKE 1 [facility] N 20 mg 1-21 TABLET BY ity of tablet 00:00: MOUTH [place] EVERYDAY Medical AT BEDTIME [facility] 2021-07 Yes [id number] TAKE 1 [facility] N 20 mg 1-21 TABLET BY ity of tablet 00:00: [facility] EVERYDAY Medical AT BEDTIME [place] [place] 2021-07 Yes [id number] TAKE 1 [facility] N 20 mg 1-21 TABLET BY ity of tablet 00:00: MOUTH [place] EVERYDAY Medical AT BEDTIME [facility] 2021-07 Yes [id number] TAKE 1 [facility] N 20 mg 1-21 TABLET BY ity of tablet 00:00: MOUTH [place] EVERYDAY Medical AT BEDTIME [facility] 2021-07 Yes [id number] TAKE 1 [facility] N 20 mg 1-21 TABLET BY ity of tablet 00:00: [facility] EVERYDAY Medical AT BEDTIME [facility] 2021-07 Yes [id number] TAKE 1 [facility] N 20 mg 1-21 TABLET BY ity of tablet 00:00: MOUTH 00 EVERYDAY Medical AT BEDTIME [facility] 2021-07 Yes [id number] TAKE 1 [facility] N 20 mg 1-21 TABLET BY ity of tablet 00:00: MOUTH [place] 00 EVERYDAY Medical AT BEDTIME [facility] 2021- Yes [id number] TAKE 1 [facility] N 20 mg 1-21 TABLET BY ity of tablet 00:00: MOUTH [place] 00 EVERYDAY Medical AT BEDTIME [facility] BUSPIRONE 5 2021-07 Yes [id number] 5mg TAKE 1 [facility] mg tablet 0-07 TABLET BY ity o f 00:00: MOUTH IN [place] 00 THE Medical MORNING Branch AND 1 TABLET IN THE EVENING. BUSPIRONE 2021-07 Yes [id number] 5mg TAKE 1 [facility] mg tablet 0-07 TABLET BY ity o f 00:00: MOUTH IN [place] 00 THE Medical MORNING Branch AND 1 TABLET IN THE EVENING. BUSPIRONE 5 2021-07 Yes [id number] 5mg TAKE 1 [facility] mg tablet 0-07 TABLET BY ity o f 00:00: MOUTH IN [place] 00 THE Medical MORNING Branch AND 1 TABLET IN THE EVENING. BUSPIRONE 5 2021-07 Yes [id number] 5mg TAKE 1 [facility] mg tablet 0-07 TABLET BY ity o f 00:00: MOUTH IN [place] 00 THE Medical MORNING Branch AND 1 TABLET IN THE EVENING. BUSPIRONE 2021-07 Yes [id number] 5mg TAKE 1 [facility] mg tablet 0-07 TABLET BY ity o f 00:00: MOUTH IN [place] 00 THE Medical MORNING Branch AND 1 TABLET IN THE EVENING. BUSPIRONE 2021-07 Yes [id number] 5mg TAKE 1 [facility] mg tablet 0-07 TABLET BY ity o f 00:00: MOUTH IN [place] 00 THE Medical MORNING Branch AND 1 TABLET IN THE EVENING. BUSPIRONE 2021-07 Yes [id number] 5mg TAKE 1 [facility] mg tablet 0-07 TABLET BY ity o f 00:00: MOUTH IN [place] 00 THE Medical MORNING Branch AND 1 TABLET IN THE EVENING. BUSPIRONE 2021-07 Yes [id number] 5mg TAKE 1 [facility] mg tablet 0-07 TABLET BY ity o f 00:00: MOUTH IN [place] 00 THE Medical MORNING Branch AND 1 TABLET IN THE EVENING. BUSPIRONE 2021-07 Yes [id number] 5mg TAKE 1 [facility] mg tablet 0-07 TABLET BY ity o f 00:00: MOUTH IN [place] 00 THE Medical MORNING Branch AND 1 TABLET IN THE EVENING. BUSPIRONE 2021-07 Yes [id number] 5mg TAKE 1 [facility] mg tablet 0-07 TABLET BY ity o f 00:00: MOUTH IN [place] 00 THE Medical MORNING Branch AND 1 TABLET IN THE EVENING. BUSPIRONE 5 2021-07 Yes [id number] 5mg TAKE 1 [facility] mg tablet 0-07 TABLET BY ity o f 00:00: MOUTH IN [place] 00 THE Medical MORNING Branch AND 1 TABLET IN THE EVENING. BUSPIRONE 2021-07 Yes [id number] 5mg TAKE 1 [facility] mg tablet 0-07 TABLET BY ity o f 00:00: MOUTH IN [place] 00 THE Medical MORNING Branch AND 1 TABLET IN THE EVENING. BUSPIRONE 5 2021-07 Yes [id number] 5mg TAKE 1 [facility] mg tablet 0-07 TABLET BY ity o f 00:00: MOUTH IN [place] 00 THE Medical MORNING Branch AND 1 TABLET IN THE EVENING. BUSPIRONE 5 2021-07 Yes [id number] 5mg TAKE 1 [facility] mg tablet 0-07 TABLET BY ity o f 00:00: MOUTH IN [place] 00 THE Medical MORNING Branch AND 1 TABLET IN THE EVENING. BUSPIRONE 5 2021-07 Yes [id number] 5mg TAKE 1 [facility] mg tablet 0-07 TABLET BY ity o f 00:00: MOUTH IN [place] 00 THE Medical MORNING Branch AND 1 TABLET IN THE EVENING. BUSPIRONE 5 2021-07 Yes [id number] 5mg TAKE 1 [facility] mg tablet 0-07 TABLET BY ity o f 00:00: MOUTH IN [place] 00 THE Medical MORNING Branch AND 1 TABLET IN THE EVENING. BUSPIRONE 2021-07 Yes [id number] 5mg TAKE 1 [facility] mg tablet 0-07 TABLET BY ity o f 00:00: MOUTH IN [place] 00 THE Medical MORNING Branch AND 1 TABLET IN THE EVENING. BUSPIRONE 5 2021-07 Yes [id number] 5mg TAKE 1 [facility] mg tablet 0-07 TABLET BY ity o f 00:00: MOUTH IN [place] 00 THE Medical MORNING Branch AND 1 TABLET IN THE EVENING. BUSPIRONE 5 2021-07 Yes [id number] 5mg TAKE 1 [facility] mg tablet 0-07 TABLET BY ity o f 00:00: MOUTH IN [place] 00 THE Medical MORNING Branch AND 1 TABLET IN THE EVENING. BUSPIRONE 5 2021-07 Yes [id number] 5mg TAKE 1 [facility] mg tablet 0-07 TABLET BY ity o f 00:00: MOUTH IN [place] 00 THE Medical MORNING Branch AND 1 TABLET IN THE EVENING. BUSPIRONE 5 2021-07 Yes [id number] 5mg TAKE 1 [facility] mg tablet 0-07 TABLET BY ity o f 00:00: MOUTH IN [place] 00 THE Medical MORNING Branch AND 1 TABLET IN THE EVENING. BUSPIRONE 5 2021-07 Yes [id number] 5mg TAKE 1 [facility] mg tablet 0-07 TABLET BY ity o f 00:00: MOUTH IN [place] 00 THE Medical MORNING Branch AND 1 TABLET IN THE EVENING. BUSPIRONE 5 2021-07 Yes [id number] 5mg TAKE 1 [facility] mg tablet 0-07 TABLET BY ity o f 00:00: MOUTH IN [place] 00 THE Medical MORNING Branch AND 1 TABLET IN THE EVENING. BUSPIRONE 5 2021-07 Yes [id number] 5mg TAKE 1 [facility] mg tablet 0-07 TABLET BY ity o f 00:00: MOUTH IN [place] 00 THE Medical MORNING Branch AND 1 TABLET IN THE EVENING. BUSPIRONE 5 2021-07 Yes [id number] 5mg TAKE 1 [facility] mg tablet 0-07 TABLET BY ity o f 00:00: MOUTH IN [place] 00 THE Medical MORNING Branch AND 1 TABLET IN THE EVENING. BUSPIRONE 5 2021-07 Yes [id number] 5mg TAKE 1 [facility] mg tablet 0-07 TABLET BY ity o f 00:00: MOUTH IN [place] 00 THE Medical MORNING Branch AND 1 TABLET IN THE EVENING. BUSPIRONE 5 2021-07 Yes [id number] 5mg TAKE 1 [facility] mg tablet 0-07 TABLET BY ity o f 00:00: MOUTH IN [place] 00 THE Medical MORNING Branch AND 1 TABLET IN THE EVENING. BUSPIRONE 5 2021-07 Yes [id number] 5mg TAKE 1 [facility] mg tablet 0-07 TABLET BY ity o f 00:00: MOUTH IN [place] 00 THE Medical MORNING Branch AND 1 TABLET IN THE EVENING. BUSPIRONE 5 2021-07 Yes [id number] 5mg TAKE 1 [facility] mg tablet 0-07 TABLET BY ity o f 00:00: MOUTH IN [place] 00 THE Medical MORNING Branch AND 1 TABLET IN THE EVENING. BUSPIRONE 5 2021-07 Yes [id number] 5mg TAKE 1 [facility] mg tablet 0-07 TABLET BY ity o f 00:00: MOUTH IN [place] 00 THE Medical MORNING Branch AND 1 TABLET IN THE EVENING. BUSPIRONE 5 2021-07 Yes [id number] 5mg TAKE 1 [facility] mg tablet 0-07 TABLET BY ity o f 00:00: MOUTH IN [place] 00 THE Medical MORNING Branch AND 1 TABLET IN THE EVENING. BUSPIRONE 5 2021-07 Yes [id number] 5mg TAKE 1 [facility] mg tablet 0-07 TABLET BY ity o f 00:00: MOUTH IN [place] 00 THE Medical MORNING Branch AND 1 TABLET IN THE EVENING. BUSPIRONE 5 2021-07 Yes [id number] 5mg TAKE 1 [facility] mg tablet 0-07 TABLET BY ity o f 00:00: MOUTH IN [place] 00 THE Medical MORNING Branch AND 1 TABLET IN THE EVENING. BUSPIRONE 5 2021-07 Yes [id number] 5mg TAKE 1 [facility] mg tablet 0-07 TABLET BY ity o f 00:00: MOUTH IN [place] 00 THE Medical MORNING Branch AND 1 TABLET IN THE EVENING. BUSPIRONE 5 2021-07 Yes [id number] 5mg TAKE 1 [facility] mg tablet 0-07 TABLET BY ity o f 00:00: MOUTH IN [place] 00 THE Medical MORNING Branch AND 1 TABLET IN THE EVENING. BUSPIRONE 5 2021-07 Yes [id number] 5mg TAKE 1 [facility] mg tablet 0-07 TABLET BY ity o f 00:00: MOUTH IN [place] 00 THE Medical MORNING Branch AND 1 TABLET IN THE EVENING. BUSPIRONE 5 2021-07 Yes [id number] 5mg TAKE 1 [facility] mg tablet 0-07 TABLET BY ity o f 00:00: MOUTH IN [place] 00 THE Medical MORNING Branch AND 1 TABLET IN THE EVENING. BUSPIRONE 2021-07 Yes [id number] 5mg TAKE 1 [facility] mg tablet 0-07 TABLET BY ity o f 00:00: MOUTH IN [place] 00 THE Medical MORNING Branch AND 1 TABLET IN THE EVENING. BUSPIRONE 2021-07 Yes [id number] 5mg TAKE 1 [facility] tablet [facility]-07 TABLET BY [facility] o f 00:00: MOUTH IN [place] 00 THE Medical MORNING Branch AND 1 TABLET IN THE EVENING. BUSPIRONE 5 2021-07 Yes [id number] 5mg TAKE 1 [facility] mg tablet 0-07 TABLET BY [facility] f 00:00: MOUTH IN [place] 00 THE Medical MORNING Branch AND 1 TABLET IN THE EVENING. BUSPIRONE 5 2021-07 Yes [id number] 5mg TAKE 1 [facility] mg tablet 0-07 TABLET BY [facility] 00:00: MOUTH IN [place] 00 THE Medical MORNING Branch AND 1 TABLET IN THE EVENING. BUSPIRONE 5 2021-07 Yes [id number] 5mg TAKE 1 [facility] mg tablet 0-07 TABLET BY [facility] 00:00: MOUTH IN [place] 00 THE Medical MORNING Branch AND 1 TABLET IN THE EVENING. BUSPIRONE 5 2021-07 Yes [id number] 5mg TAKE 1 [facility] mg tablet 0-07 TABLET BY [facility] f 00:00: MOUTH IN [place] 00 THE Medical MORNING Branch AND 1 TABLET IN THE EVENING. BUSPIRONE 5 2021-07 Yes [id number] 5mg TAKE 1 [facility] mg tablet 0-07 TABLET BY [facility] f 00:00: MOUTH IN [place] 00 THE Medical MORNING Branch AND 1 TABLET IN THE EVENING. BUSPIRONE 5 2021-07 Yes [id number] 5mg TAKE 1 [facility] mg tablet 0-07 TABLET BY [facility] f 00:00: MOUTH IN [place] 00 THE Medical MORNING Branch AND 1 TABLET IN THE EVENING. BUSPIRONE 5 2021-07 Yes [id number] 5mg TAKE 1 [facility] mg tablet 0-07 TABLET BY [facility] f 00:00: MOUTH IN [place] 00 THE Medical MORNING Branch AND 1 TABLET IN THE EVENING. BUSPIRONE 5 2021-07 Yes [id number] 5mg TAKE 1 [facility] mg tablet 0-07 TABLET BY [facility] f 00:00: MOUTH IN [place] 00 THE Medical MORNING Branch AND 1 TABLET IN THE EVENING. BUSPIRONE 5 2021-07 Yes [id number] 5mg TAKE 1 [facility] mg tablet 0-07 TABLET BY [facility] f 00:00: MOUTH IN [place] 00 THE Medical MORNING Branch AND 1 TABLET IN THE EVENING. BUSPIRONE 5 2021-07 Yes [id number] 5mg TAKE 1 [facility] mg tablet 0-07 TABLET BY [facility] f 00:00: MOUTH IN [place] 00 THE Medical MORNING Branch AND 1 TABLET IN THE EVENING. BUSPIRONE 5 2021-07 Yes [id number] 5mg TAKE 1 [facility] mg tablet 0-07 TABLET BY [facility] f 00:00: MOUTH IN [place] 00 THE Medical MORNING Branch AND 1 TABLET IN THE EVENING. BUSPIRONE 5 2021-07 Yes [id number] 5mg TAKE 1 [facility] mg tablet 0-07 TABLET BY [facility] f 00:00: MOUTH IN [place] 00 THE Medical MORNING Branch AND 1 TABLET IN THE EVENING. BUSPIRONE 5 2021-07 Yes [id number] 5mg TAKE 1 [facility] mg tablet 0-07 TABLET BY [facility] f 00:00: MOUTH IN [place] 00 THE Medical MORNING Branch AND 1 TABLET IN THE EVENING. BUSPIRONE 5 2021-07 Yes [id number] 5mg TAKE 1 [facility] mg tablet 0-07 TABLET BY [facility] 00:00: MOUTH IN [place] 00 THE Medical MORNING Branch AND 1 TABLET IN THE EVENING. BUSPIRONE 2021-07 Yes [id number] 5mg TAKE 1 [facility] mg tablet 0-07 TABLET BY [facility] f 00:00: MOUTH IN [place] 00 THE Medical MORNING Branch AND 1 TABLET IN THE EVENING. BUSPIRONE 5 2021-07 Yes [id number] 5mg TAKE 1 [facility] mg tablet 0-07 TABLET BY [facility] f 00:00: MOUTH IN [place] 00 THE Medical MORNING Branch AND 1 TABLET IN THE EVENING. BUSPIRONE 5 2021-07 Yes [id number] 5mg TAKE 1 [facility] mg tablet 0-07 TABLET BY [facility] f 00:00: MOUTH IN [place] 00 THE Medical MORNING Branch AND 1 TABLET IN THE EVENING. BUSPIRONE 5 2021-07 Yes [id number] 5mg TAKE 1 [facility] mg tablet 0-07 TABLET BY [facility] f 00:00: MOUTH IN [place] 00 THE Medical MORNING Branch AND 1 TABLET IN THE EVENING. BUSPIRONE 2021-07 Yes [id number] 5mg TAKE 1 [facility] mg tablet 0-07 TABLET BY [facility] 00:00: MOUTH IN [place] 00 THE Medical MORNING Branch AND 1 TABLET IN THE EVENING. BUSPIRONE 2021-07 Yes [id number] 5mg TAKE 1 [facility] mg tablet 0-07 TABLET BY [facility] 00:00: MOUTH IN [place] 00 THE Medical MORNING Branch AND 1 TABLET IN THE EVENING. BUSPIRONE 2021-07 Yes [id number] 5mg TAKE 1 [facility] mg tablet 0-07 TABLET BY [facility] o f 00:00: MOUTH IN [place] 00 THE Medical MORNING Branch AND 1 TABLET IN THE EVENING. BUSPIRONE 2021-07 Yes [id number] 5mg TAKE 1 [facility] mg tablet 0-07 TABLET BY [facility] f 00:00: MOUTH IN [place] 00 THE Medical MORNING Branch AND 1 TABLET IN THE EVENING. BUSPIRONE 2021-07 Yes [id number] 5mg TAKE 1 [facility] mg tablet 0-07 TABLET BY [facility] f 00:00: MOUTH IN [place] 00 THE Medical MORNING Branch AND 1 TABLET IN THE EVENING. BUSPIRONE 5 2021-07 Yes [id number] 5mg TAKE 1 [facility] mg tablet 0-07 TABLET BY [facility] o f 00:00: MOUTH IN [place] 00 THE Medical MORNING Branch AND 1 TABLET IN THE EVENING. BUSPIRONE 5 2022-1 Yes [id number] 5mg TAKE 1 [facility] mg tablet 0-07 TABLET BY [facility] o f 00:00: MOUTH IN [place] 00 THE Medical MORNING Branch AND 1 TABLET IN THE EVENING. BUSPIRONE 5 2021-07 Yes [id number] 5mg TAKE 1 [facility] mg tablet 0-07 TABLET BY [facility] o f 00:00: MOUTH IN [place] 00 THE Medical MORNING Branch AND 1 TABLET IN THE EVENING. BUSPIRONE 5 2021-07 Yes [id number] 5mg TAKE 1 [facility] mg tablet 0-07 TABLET BY [facility] o f 00:00: MOUTH IN [place] 00 THE Medical MORNING Branch AND 1 TABLET IN THE EVENING. BUSPIRONE 5 2021-07 Yes [id number] 5mg TAKE 1 [facility] mg tablet 0-07 TABLET BY [facility] o f 00:00: MOUTH IN [place] 00 THE Medical MORNING Branch AND 1 TABLET IN THE EVENING. BUSPIRONE 5 2021-07 Yes [id number] 5mg TAKE 1 [facility] mg tablet 0-07 TABLET BY [facility] o f 00:00: MOUTH IN [place] 00 THE Medical MORNING Branch AND 1 TABLET IN THE EVENING. BUSPIRONE 2021-07 Yes [id number] 5mg TAKE 1 [facility] mg tablet 0-07 TABLET BY [facility] f 00:00: MOUTH IN [place] 00 THE Medical MORNING Branch AND 1 TABLET IN THE EVENING. BUSPIRONE 5 2021-07 Yes [id number] 5mg TAKE 1 [facility] mg tablet 0-07 TABLET BY [facility] o f 00:00: MOUTH IN [place] 00 THE Medical MORNING Branch AND 1 TABLET IN THE EVENING. BUSPIRONE 5 2021-07 Yes [id number] 5mg TAKE 1 [facility] mg tablet 0-07 TABLET BY [facility] o f 00:00: MOUTH IN [place] 00 THE Medical MORNING Branch AND 1 TABLET IN THE EVENING. BUSPIRONE 5 2021-07 Yes [id number] 5mg TAKE 1 [facility] mg tablet 0-07 TABLET BY [facility] o f 00:00: MOUTH IN [place] 00 THE Medical MORNING Branch AND 1 TABLET IN THE EVENING. BUSPIRONE 5 2021-07 Yes [id number] 5mg TAKE 1 [facility] mg tablet 0-07 TABLET BY [facility] o f 00:00: MOUTH IN [place] 00 THE Medical MORNING Branch AND 1 TABLET IN THE EVENING. BUSPIRONE 5 2021-07 Yes [id number] 5mg TAKE 1 [facility] mg tablet 0-07 TABLET BY [facility] o f 00:00: MOUTH IN [place] 00 THE Medical MORNING Branch AND 1 TABLET IN THE EVENING. BUSPIRONE 5 2021-07 Yes [id number] 5mg TAKE 1 [facility] mg tablet 0-07 TABLET BY [facility] o f 00:00: MOUTH IN [place] 00 THE Medical MORNING Branch AND 1 TABLET IN THE EVENING. BUSPIRONE 5 2021-07 Yes [id number] 5mg TAKE 1 [facility] mg tablet 0-07 TABLET BY [facility] o f 00:00: MOUTH IN [place] 00 THE Medical MORNING Branch AND 1 TABLET IN THE EVENING. SERTraline 2021-0 Yes [id number] 50mg Take 1 [facility] (ZOLOFT) 50 9-13 tablet by [facility] mg tablet 00:00: mouth in [facility] 00 the Medical morning. Branch busPIRone 5 0 Yes [id number] 5mg Take 1 [facility] mg tablet 9-13 tablet by ity o f 00:00: mouth in [place] [address] the Medical morning Branch and 1 tablet in the evening. SERTraline 0 Yes [id number] 50mg Take 1 [facility] (ZOLOFT) 50 9-13 tablet by [facility] of mg tablet 00:00: mouth in [place] [address] the Medical morning. Branch busPIRone 5 0 Yes [id number] 5mg Take 1 [facility] mg tablet 9-13 tablet by it[facility] o f 00:00: mouth in [place] the Medical morning Branch and 1 tablet in the evening. SERTraline 2021-0 Yes [id number] 50mg Take 1 [facility] (ZOLOFT) 50 9-13 tablet by it[facility] of mg tablet 00:00: mouth in [facility] 00 the Medical morning. Branch busPIRone 5 0 Yes [id number] 5mg Take 1 [facility] mg tablet 9-13 tablet by it[facility] o f 00:00: mouth in [place] 00 the Medical morning Branch and 1 tablet in the evening. SERTraline 2021-0 Yes [id number] 50mg Take 1 [facility] (ZOLOFT) 50 9-13 tablet by [facility] of mg tablet 00:00: mouth in [facility] 00 the Medical morning. Branch busPIRone 5 2021-0 Yes [id number] 5mg Take 1 [facility] mg tablet 9-13 tablet by ity o f 00:00: mouth in [place] [address] the Medical morning Branch and 1 tablet in the evening. SERTraline 2021-0 Yes [id number] 50mg Take 1 [facility] (ZOLOFT) 50 9-13 tablet by [facility] mg tablet 00:00: mouth [place] 00 the Medical morning. Branch busPIRone 5 2021-0 Yes [id number] 5mg Take 1 [facility] mg tablet 9-13 tablet by ity o f 00:00: mouth in [place] 00 the Medical morning Branch and 1 tablet in the evening. SERTraline 2021-0 Yes [id number] 50mg Take 1 [facility] (ZOLOFT) 50 9-13 tablet by [facility] mg tablet 00:00: mouth [place] 00 the Medical morning. Branch busPIRone 5 2021-0 Yes [id number] 5mg Take 1 [facility] mg tablet 9-13 tablet by ity o f 00:00: mouth in [place] the morning Branch and 1 tablet in the evening. SERTraline 2021-0 Yes [id number] 50mg Take 1 [facility] (ZOLOFT) 50 9-13 tablet by [facility] mg tablet 00:00: mouth [place] the Medical morning. Branch SERTraline 2021-0 Yes [id number] 50mg Take 1 [facility] (ZOLOFT) 50 9-13 tablet by [facility] mg tablet 00:00: mouth [place] 00 the Medical morning. Branch SERTraline 2021-0 Yes [id number] 50mg Take 1 [facility] (ZOLOFT) 50 9-13 tablet by [facility] mg tablet 00:00: mouth [place] 00 the Medical morning. Branch SERTraline 2021-0 Yes [id number] 50mg Take 1 [facility] (ZOLOFT) 50 9-13 tablet by [facility] mg tablet 00:00: mouth [place] 00 the Medical morning. Branch SERTraline 2021-0 Yes [id number] 50mg Take 1 [facility] nivers (ZOLOFT) 50 9-13 tablet by [facility] of mg tablet 00:00: mouth [place] 00 the Medical morning. Branch SERTraline 2021-0 Yes [id number] 50mg Take 1 [facility] nivers (ZOLOFT) 50 9-13 tablet by [facility] of mg tablet 00:00: mouth [place] 00 the Medical morning. Branch SERTraline 2021-0 Yes [id number] 50mg Take 1 [facility] nivers (ZOLOFT) 50 9-13 tablet by [facility] of mg tablet 00:00: mouth [place] 00 the Medical morning. Branch SERTraline 2021-0 Yes [id number] 50mg Take 1 [facility] nivers (ZOLOFT) 50 9-13 tablet by [facility] of mg tablet 00:00: mouth [place] 00 the Medical morning. Branch SERTraline 2021-0 Yes [id number] 50mg Take 1 [facility] nivers (ZOLOFT) 50 9-13 tablet by it[facility] of mg tablet 00:00: mouth [place] 00 the Medical morning. Branch SERTraline 2021-0 Yes [id number] 50mg Take 1 [facility] n[facility] (ZOLOFT) 50 9-13 tablet by [facility] of mg tablet 00:00: mouth [place] 00 the Medical morning. Branch SERTraline 0 Yes [id number] 50mg Take 1 [facility] nivers (ZOLOFT) 50 9-13 tablet by it[facility] of mg tablet 00:00: mouth [place] 00 the Medical morning. Branch SERTraline 0 Yes [id number] 50mg Take 1 [facility] nivers (ZOLOFT) 50 9-13 tablet by ity of mg tablet 00:00: mouth [place] 00 the Medical morning. Branch SERTraline 0 Yes [id number] 50mg Take 1 [facility] nivers (ZOLOFT) 50 9-13 tablet by ity of mg tablet 00:00: mouth [place] 00 the Medical morning. Branch SERTraline 2021-0 Yes [id number] 50mg Take 1 [facility] nivers (ZOLOFT) 50 9-13 tablet by ity of mg tablet 00:00: mouth [place] 00 the Medical morning. Branch SERTraline 2021-0 Yes [id number] 50mg Take 1 [facility] nivers (ZOLOFT) 50 9-13 tablet by ity of mg tablet 00:00: mouth [place] 00 the Medical morning. Branch SERTraline 2021-0 Yes [id number] 50mg Take 1 [facility] nivers (ZOLOFT) 50 9-13 tablet by it[facility] of mg tablet 00:00: mouth [place] 00 the Medical morning. Branch SERTraline 2021-0 Yes [id number] 50mg Take 1 [facility] nivers (ZOLOFT) 50 9-13 tablet by ity of mg tablet 00:00: mouth [place] 00 the Medical morning. Branch SERTraline 2021-0 Yes [id number] 50mg Take 1 [facility] nivers (ZOLOFT) 50 9-13 tablet by ity of mg tablet 00:00: mouth in [place] 00 the Medical morning. Branch SERTraline 2021-0 Yes [id number] 50mg Take 1 [facility] nivers (ZOLOFT) 50 9-13 tablet by ity of mg tablet 00:00: mouth in [place] 00 the Medical morning. Branch SERTraline 2021-0 Yes [id number] 50mg Take 1 [facility] nivers (ZOLOFT) 50 9-13 tablet by ity of mg tablet 00:00: mouth [place] 00 the Medical morning. Branch SERTraline 2021-0 Yes [id number] 50mg Take 1 [facility] nivers (ZOLOFT) 50 9-13 tablet by ity of mg tablet 00:00: mouth [place] 00 the Medical morning. Branch SERTraline 2021-0 Yes [id number] 50mg Take 1 [facility] nivers (ZOLOFT) 50 9-13 tablet by ity of mg tablet 00:00: mouth in [place] 00 the Medical morning. Branch SERTraline 2021-0 Yes [id number] 50mg Take 1 [facility] nivers (ZOLOFT) 50 9-13 tablet by ity of mg tablet 00:00: mouth [place] 00 the Medical morning. Branch SERTraline 2021-0 Yes [id number] 50mg Take 1 [facility] nivers (ZOLOFT) 50 9-13 tablet by ity of mg tablet 00:00: mouth [place] 00 the Medical morning. Branch SERTraline 2021-0 Yes [id number] 50mg Take 1 [facility] nivers (ZOLOFT) 50 9-13 tablet by it[facility] of mg tablet 00:00: mouth [place] 00 the Medical morning. Branch SERTraline 2021-0 Yes [id number] 50mg Take 1 [facility] nivers (ZOLOFT) 50 9-13 tablet by ity of mg tablet 00:00: mouth [place] 00 the Medical morning. Branch SERTraline 2-0 Yes [id number] 50mg Take 1 [facility] nivers (ZOLOFT) 50 9-13 tablet by ity of mg tablet 00:00: mouth [place] 00 the Medical morning. Branch SERTraline 2021-0 Yes [id number] 50mg Take 1 [facility] nivers (ZOLOFT) 50 9-13 tablet by it[facility] of mg tablet 00:00: mouth [place] 00 the Medical morning. Branch SERTraline 2021-0 Yes [id number] 50mg Take 1 [facility] nivers (ZOLOFT) 50 9-13 tablet by it[facility] of mg tablet 00:00: mouth [place] 00 the Medical morning. Branch SERTraline 2021-0 Yes [id number] 50mg Take 1 [facility] nivers (ZOLOFT) 50 9-13 tablet by ity of mg tablet 00:00: mouth [place] 00 the Medical morning. Branch SERTraline 2021-0 Yes [id number] 50mg Take 1 [facility] nivers (ZOLOFT) 50 9-13 tablet by ity of mg tablet 00:00: mouth [place] 00 the Medical morning. Branch SERTraline 2021-0 Yes [id number] 50mg Take 1 [facility] nivers (ZOLOFT) 50 9-13 tablet by it[facility] of mg tablet 00:00: mouth [place] 00 the Medical morning. Branch SERTraline 2021-0 Yes [id number] 50mg Take 1 [facility] nivers (ZOLOFT) 50 9-13 tablet by ity of mg tablet 00:00: mouth in [place] 00 the Medical morning. Branch SERTraline 2021-0 Yes [id number] 50mg Take 1 [facility] nivers (ZOLOFT) 50 9-13 tablet by it[facility] of mg tablet 00:00: mouth in [place] 00 the Medical morning. Branch SERTraline 2021-0 Yes [id number] 50mg Take 1 [facility] nivers (ZOLOFT) 50 9-13 tablet by ity of mg tablet 00:00: mouth in [place] 00 the Medical morning. Branch SERTraline 2021-0 Yes [id number] 50mg Take 1 U nivers (ZOLOFT) 50 9-13 tablet by ity of mg tablet 00:00: mouth in [place] 00 the Medical morning. Branch SERTraline 2021-0 Yes [id number] 50mg Take 1 U nivers (ZOLOFT) 50 9-13 tablet by ity of mg tablet 00:00: mouth in [place] 00 the Medical morning. Branch SERTraline 2021-0 Yes [id number] 50mg Take 1 U nivers (ZOLOFT) 50 9-13 tablet by ity of mg tablet 00:00: mouth in [place] 00 the Medical morning. Branch SERTraline 0 Yes [id number] 50mg Take 1 U nivers (ZOLOFT) 50 9-13 tablet by ity of mg tablet 00:00: mouth in [place] 00 the Medical morning. Branch SERTraline 0 Yes [id number] 50mg Take 1 U nivers (ZOLOFT) 50 9-13 tablet by ity of mg tablet 00:00: mouth in [place] 00 the Medical morning. Branch SERTraline 0 Yes [id number] 50mg Take 1 U nivers (ZOLOFT) 50 9-13 tablet by ity of mg tablet 00:00: mouth in [place] 00 the Medical morning. Branch SERTraline 0 Yes [id number] 50mg Take 1 U nivers (ZOLOFT) 50 9-13 tablet by ity of mg tablet 00:00: mouth in [place] 00 the Medical morning. Branch SERTraline 0 Yes [id number] 50mg Take 1 U nivers (ZOLOFT) 50 9-13 tablet by ity of mg tablet 00:00: mouth in [place] 00 the Medical morning. Branch SERTraline 0 Yes [id number] 50mg Take 1 U nivers (ZOLOFT) 50 9-13 tablet by ity of mg tablet 00:00: mouth in [place] 00 the Medical morning. Branch SERTraline 0 Yes [id number] 50mg Take 1 U nivers (ZOLOFT) 50 9-13 tablet by ity of mg tablet 00:00: mouth in [place] 00 the Medical morning. Branch SERTraline 2021-0 Yes [id number] 50mg Take 1 U nivers (ZOLOFT) 50 9-13 tablet by ity of mg tablet 00:00: mouth in [place] 00 the Medical morning. Branch SERTraline 2021-0 Yes [id number] 50mg Take 1 [facility] nivers (ZOLOFT) 50 9-13 tablet by ity of mg tablet 00:00: mouth [place] 00 the Medical morning. Branch SERTraline 2021-0 Yes [id number] 50mg Take 1 [facility] nivers (ZOLOFT) 50 9-13 tablet by ity of mg tablet 00:00: mouth in [place] 00 the Medical morning. Branch SERTraline 2021-0 Yes [id number] 50mg Take 1 [facility] nivers (ZOLOFT) 50 9-13 tablet by ity of mg tablet 00:00: mouth in [place] 00 the Medical morning. Branch SERTraline 2021-0 Yes [id number] 50mg Take 1 [facility] nivers (ZOLOFT) 50 9-13 tablet by ity of mg tablet 00:00: mouth in [place] 00 the Medical morning. Branch SERTraline 0 Yes [id number] 50mg Take 1 [facility] nivers (ZOLOFT) 50 9-13 tablet by ity of mg tablet 00:00: mouth in [place] 00 the Medical morning. Branch SERTraline 0 Yes [id number] 50mg Take 1 [facility] nivers (ZOLOFT) 50 9-13 tablet by ity of mg tablet 00:00: mouth in [place] 00 the Medical morning. Branch SERTraline 0 Yes [id number] 50mg Take 1 U nivers (ZOLOFT) 50 9-13 tablet by ity of mg tablet 00:00: mouth in [place] 00 the Medical morning. Branch SERTraline 0 Yes [id number] 50mg Take 1 [facility] nivers (ZOLOFT) 50 9-13 tablet by ity of mg tablet 00:00: mouth in [place] 00 the Medical morning. Branch SERTraline 2021-0 Yes [id number] 50mg Take 1 U nivers (ZOLOFT) 50 9-13 tablet by ity of mg tablet 00:00: mouth in [place] 00 the Medical morning. Branch SERTraline 2021-0 Yes [id number] 50mg Take 1 U nivers (ZOLOFT) 50 9-13 tablet by ity of mg tablet 00:00: mouth in [place] 00 the Medical morning. Branch SERTraline 2021-0 Yes [id number] 50mg Take 1 U nivers (ZOLOFT) 50 9-13 tablet by ity of mg tablet 00:00: mouth in [place] 00 the Medical morning. Branch SERTraline 2021-0 Yes [id number] 50mg Take 1 U nivers (ZOLOFT) 50 9-13 tablet by ity of mg tablet 00:00: mouth in [place] 00 the Medical morning. Branch SERTraline 2021-0 Yes [id number] 50mg Take 1 U nivers (ZOLOFT) 50 9-13 tablet by ity of mg tablet 00:00: mouth in [place] 00 the Medical morning. Branch SERTraline 2021-0 Yes [id number] 50mg Take 1 U nivers (ZOLOFT) 50 9-13 tablet by ity of mg tablet 00:00: mouth in [place] 00 the Medical morning. Branch SERTraline 2021-0 Yes [id number] 50mg Take 1 [facility] nivers (ZOLOFT) 50 9-13 tablet by ity of mg tablet 00:00: mouth in [place] 00 the Medical morning. Branch SERTraline 0 Yes [id number] 50mg Take 1 U nivers (ZOLOFT) 50 9-13 tablet by ity of mg tablet 00:00: mouth in [place] 00 the Medical morning. Branch SERTraline 0 Yes [id number] 50mg Take 1 U nivers (ZOLOFT) 50 9-13 tablet by ity of mg tablet 00:00: mouth in [place] 00 the Medical morning. Branch SERTraline 0 Yes [id number] 50mg Take 1 U nivers (ZOLOFT) 50 9-13 tablet by ity of mg tablet 00:00: mouth in [place] 00 the Medical morning. Branch SERTraline 2021-0 Yes [id number] 50mg Take 1 U nivers (ZOLOFT) 50 9-13 tablet by ity of mg tablet 00:00: mouth in [place] 00 the Medical morning. Branch SERTraline 2021-0 Yes [id number] 50mg Take 1 U nivers (ZOLOFT) 50 9-13 tablet by ity of mg tablet 00:00: mouth in [place] 00 the Medical morning. Branch SERTraline 2021-0 Yes [id number] 50mg Take 1 U nivers (ZOLOFT) 50 9-13 tablet by ity of mg tablet 00:00: mouth in [place] 00 the Medical morning. Branch SERTraline 2021-0 Yes [id number] 50mg Take 1 [facility] nivers (ZOLOFT) 50 9-13 tablet by ity of mg tablet 00:00: mouth in [place] 00 the Medical morning. Branch SERTraline 0 Yes [id number] 50mg Take 1 U nivers (ZOLOFT) 50 9-13 tablet by ity of mg tablet 00:00: mouth in [place] 00 the Medical morning. Branch SERTraline 0 Yes [id number] 50mg Take 1 [facility] nivers (ZOLOFT) 50 9-13 tablet by ity of mg tablet 00:00: mouth in [place] 00 the Medical morning. Branch SERTraline 0 Yes [id number] 50mg Take 1 [facility] nivers (ZOLOFT) 50 9-13 tablet by ity of mg tablet 00:00: mouth in [place] 00 the Medical morning. Branch SERTraline 0 Yes [id number] 50mg Take 1 [facility] nivers (ZOLOFT) 50 9-13 tablet by ity of mg tablet 00:00: mouth in [place] 00 the Medical morning. Branch SERTraline 0 Yes [id number] 50mg Take 1 [facility] nivers (ZOLOFT) 50 9-13 tablet by ity of mg tablet 00:00: mouth in [place] 00 the Medical morning. Branch SERTraline 0 Yes [id number] 50mg Take 1 U nivers (ZOLOFT) 50 9-13 tablet by ity of mg tablet 00:00: mouth in [place] 00 the Medical morning. Branch SERTraline 0 Yes [id number] 50mg Take 1 [facility] nivers (ZOLOFT) 50 9-13 tablet by ity of mg tablet 00:00: mouth in [place] 00 the Medical morning. Branch SERTraline 0 Yes [id number] 50mg Take 1 [facility] nivers (ZOLOFT) 50 9-13 tablet by ity of mg tablet 00:00: mouth in [place] 00 the Medical morning. Branch SERTraline 0 Yes [id number] 50mg Take 1 [facility] nivers (ZOLOFT) 50 9-13 tablet by ity of mg tablet 00:00: mouth in [place] 00 the Medical morning. Branch busPIRone 5 2021-0 2021- No [id number] 5mg Take 1 [facility] mg tablet 03-3107 tablet by ity of 00:00: 00:00 mouth in [place] 00 :00 the Medical morning Branch and 1 tablet in the evening. busPIRone 5 2021- No [id number] 5mg Take 1 [facility] mg tablet 03-31 tablet by ity of 00:00: 00:00 mouth in [place] 00 :00 the Medical morning Branch and 1 tablet in the evening. losartan 25 2021- No [id number] 25mg Take 1 [facility] mg tablet 03-31 tablet by ity of 00:00: 00:00 mouth in [place] 00 :00 the Medical morning. Branch PANTOPRAZOL Yes [id number] TAKE 1 [facility] E 40 mg EC 5-19 TABLET BY ity of tablet 00:00: [facility] 00 EVERY DAY Medical Branch PANTOPRAZOL Yes [id number] TAKE 1 [facility] E 40 mg EC 5-19 TABLET BY ity of tablet 00:00: [facility] 00 EVERY DAY Medical Branch PANTOPRAZOL 2021-0 Yes [id number] TAKE 1 [facility] E 40 mg EC 5-19 TABLET BY ity of tablet 00:00: [facility] 00 EVERY DAY Medical Branch PANTOPRAZOL 2021-0 Yes [id number] TAKE 1 [facility] E 40 mg EC 5-19 TABLET BY ity of tablet 00:00: [facility] 00 EVERY DAY Medical Branch PANTOPRAZOL 2021-0 Yes [id number] TAKE 1 [facility] E 40 mg EC 5-19 TABLET BY ity of tablet 00:00: [facility] 00 EVERY DAY Medical Branch PANTOPRAZOL 2021-0 Yes [id number] TAKE 1 [facility] E 40 mg EC 5-19 TABLET BY ity of tablet 00:00: [facility] 00 EVERY DAY Medical Branch PANTOPRAZOL 2021-0 Yes [id number] TAKE 1 [facility] E 40 mg EC 5-19 TABLET BY ity of tablet 00:00: [facility] 00 EVERY DAY Medical Branch PANTOPRAZOL 2021-0 Yes [id number] TAKE 1 [facility] E 40 mg EC 5-19 TABLET BY ity of tablet 00:00: [facility] 00 EVERY DAY Medical Branch PANTOPRAZOL 2021-0 Yes [id number] TAKE 1 [facility] E 40 mg EC 5-19 TABLET BY ity of tablet 00:00: [facility] 00 EVERY DAY Medical Branch PANTOPRAZOL 2021-0 Yes [id number] TAKE 1 [facility] E 40 mg EC 5-19 TABLET BY ity of tablet 00:00: MOUTH [place] 00 EVERY DAY Medical Branch PANTOPRAZOL 2021-0 Yes [id number] TAKE 1 [facility] E 40 mg EC 5-19 TABLET BY ity of tablet 00:00: MOUTH [place] 00 EVERY DAY Medical Branch PANTOPRAZOL 2021-0 Yes [id number] TAKE 1 [facility] E 40 mg EC 5-19 TABLET BY ity of tablet 00:00: MOUTH [place] 00 EVERY DAY Medical Branch PANTOPRAZOL 2021-0 Yes [id number] TAKE 1 [facility] E 40 mg EC 5-19 TABLET BY ity of tablet 00:00: MOUTH [place] 00 EVERY DAY Medical Branch PANTOPRAZOL 2021-0 Yes [id number] TAKE 1 [facility] E 40 mg EC 5-19 TABLET BY ity of tablet 00:00: MOUTH [place] 00 EVERY DAY Medical Branch PANTOPRAZOL 2021-0 Yes [id number] TAKE 1 [facility] E 40 mg EC 5-19 TABLET BY ity of tablet 00:00: MOUTH [place] 00 EVERY DAY Medical Branch PANTOPRAZOL 2021-0 Yes [id number] TAKE 1 [facility] E 40 mg EC 5-19 TABLET BY ity of tablet 00:00: MOUTH [place] 00 EVERY DAY Medical Branch PANTOPRAZOL 2021-0 Yes [id number] TAKE 1 [facility] E 40 mg EC 5-19 TABLET BY ity of tablet 00:00: MOUTH [place] 00 EVERY DAY Medical Branch PANTOPRAZOL 2021-0 Yes [id number] TAKE 1 [facility] E 40 mg EC 5-19 TABLET BY ity of tablet 00:00: MOUTH [place] 00 EVERY DAY Medical Branch PANTOPRAZOL 2021-0 Yes [id number] TAKE 1 [facility] E 40 mg EC 5-19 TABLET BY ity of tablet 00:00: MOUTH [place] 00 EVERY DAY Medical Branch PANTOPRAZOL 2021-0 2- No [id number] TAKE 1 [facility] E 40 mg EC 5-19 11-28 TABLET BY ity of tablet 00:00: 00:00 MOUTH [place] 00 :00 EVERY DAY Medical Branch PANTOPRAZOL 2021-0 2021- No [id number] TAKE 1 [facility] E 40 mg EC 5-19 11-28 TABLET BY ity of tablet 00:00: 00:00 MOUTH [place] 00 :00 EVERY DAY Medical Branch atorvastati 2021-0 Yes [id number] 20mg Take 1 [facility] n 20 mg 4-12 tablet by [facility]y of tablet 00:00: mouth at [place] [address] bedtime. Medical Branch atorvastati 0 Yes [id number] 20mg Take 1 [facility] n 20 mg 4-12 tablet by ity of tablet 00:00: mouth at [place] bedtime. Medical Branch atorvastati 0 Yes [id number] 20mg Take 1 [facility] n 20 mg 4-12 tablet by ity of tablet 00:00: mouth at [place] [address] bedtime. Medical Branch atorvastati 0 Yes [id number] 20mg Take 1 [facility] n 20 mg 4-12 tablet by ity of tablet 00:00: mouth at [place] bedtime. Medical Branch atorvastati 0 Yes [id number] 20mg Take 1 [facility] n 20 mg 4-12 tablet by [facility] of tablet 00:00: [place] at [place] [place] [address] [place] [facility] atorvastati 0 Yes [id number] 20mg Take 1 [facility] n 20 mg 4-12 tablet by ity of tablet 00:00: mouth at [place] [address] bedtime. [facility] atorvastati 0 Yes [id number] 20mg Take 1 [facility] n 20 mg 4-12 tablet by ity of tablet 00:00: mouth [place] [address] bedtime. [facility] atorvastati 0 Yes [id number] 20mg Take 1 [facility] n 20 mg 4-12 tablet by ity of tablet 00:00: mouth [place] [address] bedtime. [facility] atorvastati 0 Yes [id number] 20mg Take 1 [facility] n 20 mg 4-12 tablet by ity of tablet 00:00: mouth [place] [address] bedtime. [facility] atorvastati 0 Yes [id number] 20mg Take 1 [facility] n 20 mg 4-12 tablet by ity of tablet 00:00: mouth [place] [address] bedtime. [facility] atorvastati 0 Yes [id number] 20mg Take 1 [facility] n 20 mg 4-12 tablet by ity of tablet 00:00: mouth [place] [address] bedtime. [facility] atorvastati 0 Yes [id number] 20mg Take 1 [facility] n 20 mg 4-12 tablet by ity of tablet 00:00: mouth [place] [address] bedtime. [facility] atorvastati 0 Yes [id number] 20mg Take 1 [facility] n 20 mg 4-12 tablet by ity of tablet 00:00: mouth at [place] 00 bedtime. [facility] atorvastati Yes [id number] 20mg Take 1 [facility] n 20 mg 4-12 tablet by ity of tablet 00:00: mouth [place] [address] bedtime. [facility] atorvastati Yes [id number] 20mg Take 1 [facility] n 20 mg 4-12 tablet by ity of tablet 00:00: mouth at [place] [address] bedtime. [facility] atorvastati Yes [id number] 20mg Take 1 [facility] n 20 mg 4-12 tablet by ity of tablet 00:00: mouth [place] [address] bedtime. [facility] atorvastati 2021- No [id number] 20mg Take 1 [facility] n 20 mg 4-12 11-21 tablet by ity of tablet 00:00: 00:00 mouth at [place] 00 :00 bedtime. [facility] atorvastati 2021- No [id number] 20mg Take 1 [facility] n 20 mg 4-12 11-21 tablet by ity of tablet 00:00: 00:00 mouth at [place] 00 :00 bedtime. [facility] atorvastati 2021- No [id number] 20mg Take 1 [facility] n 20 mg 4-12 11-21 tablet by ity of tablet 00:00: 00:00 mouth at [place] 00 :00 bedtime. [facility] Branch EPINEPHrine 2020-07 [...] Immunizations Ordered Filled Immunization Date Status Comments [facility] e Immunization Name Name Influenza Virus 2022-04-15 [...] Universit y of Vaccine [facility], 00:00:00 [place] [facility] Preserv and ABX Branch Free [...] Universit y of Vaccine [facility], 00:00:00 [place] [facility] Preserv and ABX Branch Free 6 MO-64 YRS Influenza Virus 2022-04-15 Completed [facility]ine [facility], 00:00:00 [place] [facility] Preserv and ABX Branch Free [...] and ABX Branch Free 6 MO-64 YRS (FLUCELVAX) SARS-COV-2 COVID-19 2020-10-26 Completed Unive rsity of PFIZER VACCINE 00:00:00 [facility] SARS-COV-2 COVID-19 2020-10-26 Completed Unive rsity of PFIZER VACCINE 00:00:00 [facility] SARS-COV-2 COVID-19 2020-10-26 Completed Unive rsity of PFIZER VACCINE 00:00:00 [facility] SARS-COV-2 COVID-19 2020-10-26 Completed Unive rsity of PFIZER VACCINE 00:00:00 [facility] SARS-COV-2 COVID-19 2020-10-26 Completed Unive rsity of PFIZER VACCINE 00:00:00 [facility] SARS-COV-2 COVID-19 2020-10-26 Completed Unive rsity of PFIZER VACCINE 00:00:00 [facility] SARS-COV-2 COVID-19 2020-10-26 Completed Unive rsity of PFIZER VACCINE 00:00:00 [facility] SARS-COV-2 COVID-19 2020-10-26 Completed Unive rsity of PFIZER VACCINE 00:00:00 [facility] SARS-COV-2 COVID-19 2020-10-26 Completed Unive rsity of PFIZER VACCINE 00:00:00 [facility] SARS-COV-2 COVID-19 2020-10-26 Completed Unive rsity of PFIZER VACCINE 00:00:00 [facility] SARS-COV-2 COVID-19 2020-10-26 Completed Unive rsity of PFIZER VACCINE 00:00:00 [facility] Branch SARS-COV-2 COVID-19 2020-10-26 Completed Unive rsity of PFIZER VACCINE 00:00:[address] [place] [facility] Branch SARS-COV-2 COVID-19 2020-10-26 Completed Unive rsity of PFIZER VACCINE 00:00:00 [facility] Branch SARS-COV-2 COVID-19 2020-10-26 Completed Unive rsity of PFIZER VACCINE 00:00:[address] [place] [facility] Branch SARS-COV-2 COVID-19 2020-10-26 Completed Unive rsity of PFIZER VACCINE 00:00:00 [facility] Branch SARS-COV-2 COVID-19 2020-10-26 Completed Unive rsity of PFIZER VACCINE 00:00:00 [facility] Branch SARS-COV-2 COVID-19 2020-10-26 Completed Unive rsity of PFIZER VACCINE 00:00:00 [facility] Branch SARS-COV-2 COVID-19 2020-10-26 Completed Unive rsity of PFIZER VACCINE 00:00:00 [facility] Branch SARS-COV-2 COVID-19 2020-10-26 Completed Unive rsity of PFIZER VACCINE 00:00:00 [facility] Branch SARS-COV-2 COVID-19 2020-10-26 Completed Unive rsity of PFIZER VACCINE 00:00:00 [facility] Branch SARS-COV-2 COVID-19 2020-10-26 Completed Unive rsity of PFIZER VACCINE 00:00:00 [facility] SARS-COV-2 COVID-19 2020-10-26 Completed Unive rsity of PFIZER VACCINE 00:00:00 [facility] SARS-COV-2 COVID-19 2020-10-26 Completed Unive rsity of PFIZER VACCINE 00:00:00 [facility] Branch SARS-COV-2 COVID-19 2020-10-26 Completed Unive rsity of PFIZER VACCINE 00:00:00 [facility] Branch SARS-COV-2 COVID-19 2020-10-26 Completed Unive rsity of PFIZER VACCINE 00:00:00 [facility] SARS-COV-2 COVID-19 2020-10-26 Completed Unive rsity of PFIZER VACCINE 00:00:00 [facility] Branch SARS-COV-2 COVID-19 2020-10-26 Completed Unive rsity of PFIZER VACCINE 00:00:00 [facility] SARS-COV-2 COVID-19 2020-10-26 Completed Unive rsity of PFIZER VACCINE 00:00:00 [facility] SARS-COV-2 COVID-19 2020-10-26 Completed Unive rsity of PFIZER VACCINE 00:00:00 [facility] Branch SARS-COV-2 COVID-19 2020-10-26 Completed Unive rsity of PFIZER VACCINE 00:00:00 [facility] Branch SARS-COV-2 COVID-19 2020-10-26 Completed Unive rsity of PFIZER VACCINE 00:00:00 [facility] SARS-COV-2 COVID-19 2020-10-26 Completed Unive rsity of PFIZER VACCINE 00:00:00 [facility] SARS-COV-2 COVID-19 2020-10-26 Completed Unive rsity of PFIZER VACCINE 00:00:00 [facility] SARS-COV-2 COVID-19 2020-10-26 Completed Unive rsity of PFIZER VACCINE 00:00:00 [facility] SARS-COV-2 COVID-19 2020-10-26 Completed Unive rsity of PFIZER VACCINE 00:00:00 [facility] SARS-COV-2 COVID-19 2020-10-26 Completed Unive rsity of PFIZER VACCINE 00:00:00 [facility] SARS-COV-2 COVID-19 2020-10-26 Completed Unive rsity of PFIZER VACCINE 00:00:00 [facility] SARS-COV-2 COVID-19 2020-10-26 Completed [facility]ive rsity of PFIZER VACCINE 00:00:00 [facility] SARS-COV-2 COVID-19 2020-10-26 Completed [facility]ive rsity of PFIZER VACCINE 00:00:00 [facility] SARS-COV-2 COVID-19 2020-10-26 Completed Unive rsity of PFIZER VACCINE 00:00:00 [facility] SARS-COV-2 COVID-19 2020-10-26 Completed Unive rsity of PFIZER VACCINE 00:00:00 [facility] SARS-COV-2 COVID-19 2020-10-26 Completed Unive rsity of PFIZER VACCINE 00:00:00 [facility] SARS-COV-2 COVID-19 2020-10-26 Completed Unive rsity of PFIZER VACCINE 00:00:[address] [place] [facility] Branch SARS-COV-2 COVID-19 2020-10-26 Completed Unive rsity of PFIZER VACCINE 00:00:00 [facility] SARS-COV-2 COVID-19 2020-10-26 Completed Unive rsity of PFIZER VACCINE 00:00:00 [facility] SARS-COV-2 COVID-19 2020-10-26 Completed Unive rsity of PFIZER VACCINE 00:00:00 [facility] SARS-COV-2 COVID-19 2020-10-26 Completed Unive rsity of PFIZER VACCINE 00:00:00 [facility] SARS-COV-2 COVID-19 2020-10-26 Completed Unive rsity of PFIZER VACCINE 00:00:00 [facility] SARS-COV-2 COVID-19 2020-10-26 Completed Unive rsity of PFIZER VACCINE 00:00:00 [facility] SARS-COV-2 COVID-19 2020-10-26 Completed Unive rsity of PFIZER VACCINE 00:00:00 [facility] SARS-COV-2 COVID-19 2020-10-26 Completed Unive rsity of PFIZER VACCINE 00:00:00 [facility] SARS-COV-2 COVID-19 2020-10-26 Completed [facility]ive rsity of PFIZER VACCINE 00:00:00 [facility] [place] [facility] SARS-COV-2 COVID-19 2020-10-26 Completed Unive rsity of PFIZER VACCINE 00:00:00 [facility] SARS-COV-2 COVID-19 2020-10-26 Completed Unive rsity of PFIZER VACCINE 00:00:00 [facility] SARS-COV-2 COVID-19 2020-10-26 Completed Unive rsity of PFIZER VACCINE 00:00:00 [facility] SARS-COV-2 COVID-19 2020-10-26 Completed Unive rsity of PFIZER VACCINE 00:00:00 [facility] SARS-COV-2 COVID-19 2020-10-26 Completed Unive rsity of PFIZER VACCINE 00:00:00 [facility] [place] [facility] SARS-COV-2 COVID-19 2020-10-26 Completed Unive rsity of PFIZER VACCINE 00:00:00 [facility] [place] [facility] SARS-COV-2 COVID-19 2020-10-26 Completed Unive rsity of PFIZER VACCINE 00:00:[address] [place] [facility] Branch SARS-COV-2 COVID-19 2020-10-26 Completed Unive rsity of PFIZER VACCINE 00:00:00 [facility] [place] [facility] SARS-COV-2 COVID-19 2020-10-26 Completed Unive rsity of PFIZER VACCINE 00:00:00 [facility] [place] [facility] SARS-COV-2 COVID-19 2020-10-26 Completed Unive rsity of PFIZER VACCINE 00:00:00 [facility] [place] [facility] SARS-COV-2 COVID-19 2020-10-26 Completed Unive rsity of PFIZER VACCINE 00:00:00 [facility] SARS-COV-2 COVID-19 2020-10-26 Completed Unive rsity of PFIZER VACCINE 00:00:00 [facility] SARS-COV-2 COVID-19 2020-10-26 Completed Unive rsity of PFIZER VACCINE 00:00:00 [facility] SARS-COV-2 COVID-19 2020-10-26 Completed Unive rsity of PFIZER VACCINE 00:00:00 [facility] SARS-COV-2 COVID-19 2020-10-26 Completed Unive rsity of PFIZER VACCINE 00:00:00 [facility] SARS-COV-2 COVID-19 2020-10-26 Completed [facility]ive rsity of PFIZER VACCINE 00:00:00 [facility] SARS-COV-2 COVID-19 2020-10-26 Completed Unive rsity of PFIZER VACCINE 00:00:00 [facility] SARS-COV-2 COVID-19 2020-10-26 Completed Unive rsity of PFIZER VACCINE 00:00:00 [facility] SARS-COV-2 COVID-19 2020-10-26 Completed Unive rsity of PFIZER VACCINE 00:00:00 [facility] SARS-COV-2 COVID-19 2020-10-26 Completed Unive rsity of PFIZER VACCINE 00:00:00 [facility] SARS-COV-2 COVID-19 2020-10-26 Completed Unive rsity of PFIZER VACCINE 00:00:00 [facility] SARS-COV-2 COVID-19 2020-10-26 Completed Unive rsity of PFIZER VACCINE 00:00:00 [facility] SARS-COV-2 COVID-19 2020-10-26 Completed Unive rsity of PFIZER VACCINE 00:00:00 [facility] SARS-COV-2 COVID-19 2020-10-26 Completed Unive rsity of PFIZER VACCINE 00:00:00 [facility] SARS-COV-2 COVID-19 2020-10-26 Completed Unive rsity of PFIZER VACCINE 00:00:00 [facility] SARS-COV-2 COVID-19 2020-10-26 Completed Unive rsity of PFIZER VACCINE 00:00:00 [facility] SARS-COV-2 COVID-19 2020-10-26 Completed [facility]ive rsity of PFIZER VACCINE 00:00:00 [facility] SARS-COV-2 COVID-19 2020-10-26 Completed [facility]ive rs[facility] of PFIZER VACCINE 00:00:00 [facility] SARS-COV-2 COVID-19 2020-10-26 Completed [facility] rsity of PFIZER VACCINE 00:00:00 [facility] SARS-COV-2 COVID-19 2020-10-26 Completed [facility]ive rsity of PFIZER VACCINE 00:00:00 [facility] SARS-COV-2 COVID-19 2020-10-26 Completed [facility] rsity of PFIZER VACCINE 00:00:00 [facility] SARS-COV-2 COVID-19 2020-10-05 Completed [facility]ive rsity of PFIZER VACCINE 00:00:00 [facility] SARS-COV-2 COVID-19 2020-10-05 Completed [facility] rsity of PFIZER VACCINE 00:00:00 [facility] SARS-COV-2 COVID-19 2020-10-05 Completed Unive rsity of PFIZER VACCINE 00:00:00 [facility] SARS-COV-2 COVID-19 2020-10-05 Completed Unive rsity of PFIZER VACCINE 00:00:00 [facility] SARS-COV-2 COVID-19 2020-10-05 Completed Unive rsity of PFIZER VACCINE 00:00:00 [facility] SARS-COV-2 COVID-19 2020-10-05 Completed [facility]ive rsity of PFIZER VACCINE 00:00:00 [facility] SARS-COV-2 COVID-19 2020-10-05 Completed Unive rsity of PFIZER VACCINE 00:00:00 [facility] SARS-COV-2 COVID-19 2020-10-05 Completed [facility]ive rsity of PFIZER VACCINE 00:00:00 [facility] SARS-COV-2 COVID-19 2020-10-05 Completed Unive rsity of PFIZER VACCINE 00:00:00 [facility] SARS-COV-2 COVID-19 2020-10-05 Completed Unive rsity of PFIZER VACCINE 00:00:00 [facility] SARS-COV-2 COVID-19 2020-10-05 Completed Unive rsity of PFIZER VACCINE 00:00:00 [facility] SARS-COV-2 COVID-19 2020-10-05 Completed [facility]ive rsity of PFIZER VACCINE 00:00:00 [facility] SARS-COV-2 COVID-19 2020-10-05 Completed [facility]ive rsity of PFIZER VACCINE 00:00:00 [facility] SARS-COV-2 COVID-19 2020-10-05 Completed [facility]ive rsity of PFIZER VACCINE 00:00:00 [facility] SARS-COV-2 COVID-19 2020-10-05 Completed Unive rsity of PFIZER VACCINE 00:00:00 [facility] SARS-COV-2 COVID-19 2020-10-05 Completed [facility]ive rsity of PFIZER VACCINE 00:00:00 [facility] SARS-COV-2 COVID-19 2020-10-05 Completed Unive rsity of PFIZER VACCINE 00:00:00 [facility] [place] [facility] SARS-COV-2 COVID-19 2020-10-05 Completed Unive rsity of PFIZER VACCINE 00:00:00 [facility] SARS-COV-2 COVID-19 2020-10-05 Completed Unive rsity of PFIZER VACCINE 00:00:00 [facility] SARS-COV-2 COVID-19 2020-10-05 Completed Unive rsity of PFIZER VACCINE 00:00:00 [facility] SARS-COV-2 COVID-19 2020-10-05 Completed Unive rsity of PFIZER VACCINE 00:00:00 [facility] [place] [facility] SARS-COV-2 COVID-19 2020-10-05 Completed Unive rsity of PFIZER VACCINE 00:00:00 [facility] SARS-COV-2 COVID-19 2020-10-05 Completed Unive rsity of PFIZER VACCINE 00:00:00 [facility] SARS-COV-2 COVID-19 2020-10-05 Completed Unive rsity of PFIZER VACCINE 00:00:00 [facility] [place] [facility] SARS-COV-2 COVID-19 2020-10-05 Completed Unive rsity of PFIZER VACCINE 00:00:00 [facility] [place] [facility] SARS-COV-2 COVID-19 2020-10-05 Completed Unive rsity of PFIZER VACCINE 00:00:00 [facility] [place] [facility] SARS-COV-2 COVID-19 2020-10-05 Completed [facility]ive rsity of PFIZER VACCINE 00:00:00 [facility] [place] [facility] SARS-COV-2 COVID-19 2020-10-05 Completed [facility]ive rsity of PFIZER VACCINE 00:00:00 [facility] SARS-COV-2 COVID-19 2020-10-05 Completed [facility]ive rsity of PFIZER VACCINE 00:00:00 [facility] SARS-COV-2 COVID-19 2020-10-05 Completed Unive rsity of PFIZER VACCINE 00:00:00 [facility] [place] [facility] SARS-COV-2 COVID-19 2020-10-05 Completed [facility]ive rsity of PFIZER VACCINE 00:00:00 [facility] SARS-COV-2 COVID-19 2020-10-05 Completed [facility]ive rsity of PFIZER VACCINE 00:00:00 [facility] SARS-COV-2 COVID-19 2020-10-05 Completed Unive rsity of PFIZER VACCINE 00:00:00 [facility] [place] [facility] SARS-COV-2 COVID-19 2020-10-05 Completed Unive rsity of PFIZER VACCINE 00:00:00 [facility] SARS-COV-2 COVID-19 2020-10-05 Completed Unive rsity of PFIZER VACCINE 00:00:00 [facility] SARS-COV-2 COVID-19 2020-10-05 Completed [facility]ive rsity of PFIZER VACCINE 00:00:00 [facility] SARS-COV-2 COVID-19 2020-10-05 Completed Unive rsity of PFIZER VACCINE 00:00:00 [facility] [place] [facility] SARS-COV-2 COVID-19 2020-10-05 Completed [facility] rsity of PFIZER VACCINE 00:00:00 [facility] SARS-COV-2 COVID-19 2020-10-05 Completed [facility]ive rsity of PFIZER VACCINE 00:00:00 [facility] SARS-COV-2 COVID-19 2020-10-05 Completed [facility] rsity of PFIZER VACCINE 00:00:00 [facility] SARS-COV-2 COVID-19 2020-10-05 Completed [facility] of PFIZER VACCINE 00:00:00 [facility] SARS-COV-2 COVID-19 2020-10-05 Completed [facility] of PFIZER VACCINE 00:00:00 [facility] SARS-COV-2 COVID-19 2020-10-05 Completed [facility] of PFIZER VACCINE 00:00:00 [facility] SARS-COV-2 COVID-19 2020-10-05 Completed [facility] rsity of PFIZER VACCINE 00:00:00 [facility] SARS-COV-2 COVID-19 2020-10-05 Completed [facility] rsity of PFIZER VACCINE 00:00:00 [facility] SARS-COV-2 COVID-19 2020-10-05 Completed [facility] rsity of PFIZER VACCINE 00:00:00 [facility] SARS-COV-2 COVID-19 2020-10-05 Completed [facility] rsity of PFIZER VACCINE 00:00:00 [facility] SARS-COV-2 COVID-19 2020-10-05 Completed Unive rsity of PFIZER VACCINE 00:00:00 [facility] SARS-COV-2 COVID-19 2020-10-05 Completed [facility]ive rsity of PFIZER VACCINE 00:00:00 [facility] SARS-COV-2 COVID-19 2020-10-05 Completed [facility]ive rsity of PFIZER VACCINE 00:00:00 [facility] SARS-COV-2 COVID-19 2020-10-05 Completed [facility]ive rsity of PFIZER VACCINE 00:00:00 [facility] SARS-COV-2 COVID-19 2020-10-05 Completed [facility]ive rsity of PFIZER VACCINE 00:00:00 [facility] SARS-COV-2 COVID-19 2020-10-05 Completed Unive rsity of PFIZER VACCINE 00:00:00 [facility] SARS-COV-2 COVID-19 2020-10-05 Completed Unive rsity of PFIZER VACCINE 00:00:[address] [place] [facility] Branch SARS-COV-2 COVID-19 2020-10-05 Completed Unive rsity of PFIZER VACCINE 00:00:00 [facility] SARS-COV-2 COVID-19 2020-10-05 Completed [facility] rsity of PFIZER VACCINE 00:00:00 [facility] SARS-COV-2 COVID-19 2020-10-05 Completed [facility] rsity of PFIZER VACCINE 00:00:00 [facility] SARS-COV-2 COVID-19 2020-10-05 Completed [facility] rsity of PFIZER VACCINE 00:00:00 [facility] SARS-COV-2 COVID-19 2020-10-05 Completed [facility] rsity of PFIZER VACCINE 00:00:00 [facility] SARS-COV-2 COVID-19 2020-10-05 Completed [facility] rsity of PFIZER VACCINE 00:00:00 [facility] SARS-COV-2 COVID-19 2020-10-05 Completed [facility] rsity of PFIZER VACCINE 00:00:00 [facility] SARS-COV-2 COVID-19 2020-10-05 Completed [facility]ive rsity of PFIZER VACCINE 00:00:00 [facility] SARS-COV-2 COVID-19 2020-10-05 Completed [facility] rsity of PFIZER VACCINE 00:00:00 [facility] SARS-COV-2 COVID-19 2020-10-05 Completed [facility] rsity of PFIZER VACCINE 00:00:00 [facility] SARS-COV-2 COVID-19 2020-10-05 Completed [facility] rsity of PFIZER VACCINE 00:00:00 [facility] SARS-COV-2 COVID-19 2020-10-05 Completed [facility]ity of PFIZER VACCINE 00:00:00 [facility] SARS-COV-2 COVID-19 2020-10-05 Completed [facility]ive rsity of PFIZER VACCINE 00:00:00 [facility] SARS-COV-2 COVID-19 2020-10-05 Completed [facility] rsity of PFIZER VACCINE 00:00:00 [facility] SARS-COV-2 COVID-19 2020-10-05 Completed [facility] of PFIZER VACCINE 00:00:00 [facility] SARS-COV-2 COVID-19 2020-10-05 Completed [facility] rsity of PFIZER VACCINE 00:00:00 [facility] SARS-COV-2 COVID-19 2020-10-05 Completed [facility] rsity of PFIZER VACCINE 00:00:00 [facility] SARS-COV-2 COVID-19 2020-10-05 Completed [facility] of PFIZER VACCINE 00:00:00 [facility] SARS-COV-2 COVID-19 2020-10-05 Completed [facility] rsity of PFIZER VACCINE 00:00:00 [facility] SARS-COV-2 COVID-19 2020-10-05 Completed [facility] rs[facility] of PFIZER VACCINE 00:00:00 [facility] SARS-COV-2 COVID-19 2020-10-05 Completed [facility] of PFIZER VACCINE 00:00:00 [facility] SARS-COV-2 COVID-19 2020-10-05 Completed [facility]ity of PFIZER VACCINE 00:00:00 [facility] SARS-COV-2 COVID-19 2020-10-05 Completed [facility] of PFIZER VACCINE 00:00:00 [facility] SARS-COV-2 COVID-19 2020-10-05 Completed [facility]ity of PFIZER VACCINE 00:00:00 [facility] SARS-COV-2 COVID-19 2020-10-05 Completed [facility] of PFIZER VACCINE 00:00:00 [facility] SARS-COV-2 COVID-19 2020-10-05 Completed [facility] of PFIZER VACCINE 00:00:00 [facility] SARS-COV-2 COVID-19 2020-10-05 Completed [facility] of PFIZER VACCINE 00:00:00 [facility] SARS-COV-2 COVID-19 2020-10-05 Completed [facility] of PFIZER VACCINE 00:00:00 [facility] SARS-COV-2 COVID-19 2020-10-05 Completed [facility] of PFIZER VACCINE 00:00:00 [facility] Influenza Virus 2020-05-30 Completed [facility] Vaccine [facility] .5 mL 00:00:00 [place] [facility] 6+ MO [facility] Pneumococcal 2020-05-30 Completed [facility] o f Polysaccharide, 00:00:00 [place] [facility] PPSV23 (PNEUMOVAX) Branch Influenza Virus 2020-05-30 Completed [facility] Vaccine [facility] .5 mL 00:00:00 [place] [facility] 6+ MO [facility] Pneumococcal 2020-05-30 Completed [facility] o f Polysaccharide, 00:00:00 [place] [facility] PPSV23 (PNEUMOVAX) Branch Influenza Virus 2020-05-30 Completed [facility] Vaccine [facility] .5 mL 00:00:00 [place] [facility] 6+ MO [facility] Pneumococcal 2020-05-30 Completed [facility] o f Polysaccharide, 00:00:00 [place] [facility] PPSV23 (PNEUMOVAX) Branch Influenza Virus 2020-05-30 Completed [facility] Vaccine [facility] .5 mL 00:00:00 [place] [facility] 6+ MO [facility] Pneumococcal 2020-05-30 Completed [facility] o f Polysaccharide, 00:00:00 [place] [facility] PPSV23 (PNEUMOVAX) Branch Influenza Virus 2020-05-30 Completed [facility] Vaccine Quad .5 mL 00:00:00 [facility] IM 6+ MO Branch Pneumococcal 2020-05-30 Completed [facility] o f Polysaccharide, 00:00:00 [place] [facility] PPSV23 (PNEUMOVAX) Branch Influenza Virus 2020-05-30 Completed [facility] Vaccine Quad .5 mL 00:00:00 [facility] IM 6+ MO Branch Pneumococcal 2020-05-30 Completed [facility] o f Polysaccharide, 00:00:00 [place] [facility] PPSV23 (PNEUMOVAX) Branch Influenza Virus 2020-05-30 Completed [facility] Vaccine [facility] .5 mL 00:00:00 [place] [facility] 6+ [facility] Pneumococcal 2020-05-30 [...] y of Vaccine Quad .5 mL 00:00:00 [facility] 6+ MO [facility] Pneumococcal 2020-05-30 Completed [facility] Polysaccharide, 00:00:00 [facility] PPSV23 (PNEUMOVAX) [facility] Influenza Virus 2020-05-30 Completed [facility] Vaccine Quad .5 mL 00:00:00 [facility] 6+ MO [facility] Pneumococcal 2020-05-30 Completed [facility] Polysaccharide, 00:00:00 [facility] PPSV23 (PNEUMOVAX) [facility] Influenza Virus 2020-05-30 Completed [facility] Vaccine Quad .5 mL 00:00:00 [facility] 6+ MO [facility] Pneumococcal 2020-05-30 Completed [facility] Polysaccharide, 00:00:00 [facility] PPSV23 (PNEUMOVAX) [facility] Influenza Virus 2020-05-30 Completed [facility] Vaccine Quad .5 mL 00:00:00 [facility] 6+ MO [facility] Pneumococcal 2020-05-30 Completed [facility] Polysaccharide, 00:00:00 [facility] PPSV23 (PNEUMOVAX) [facility] Influenza Virus 2020-05-30 Completed [facility] Vaccine Quad .5 mL 00:00:00 [facility] 6+ MO [facility] Pneumococcal 2020-05-30 Completed [facility] Polysaccharide, 00:00:00 [facility] PPSV23 (PNEUMOVAX) [facility] Influenza Virus 2020-05-30 Completed [facility] Vaccine Quad .5 mL 00:00:00 [facility] 6[facility] MO [facility] Pneumococcal 2020-05-30 Completed [facility] Polysaccharide, 00:00:00 [facility] PPSV23 (PNEUMOVAX) [facility] Influenza Virus 2020-05-30 Completed [facility] Vaccine Quad .5 mL 00:00:00 [facility] 6[facility] MO [facility] Pneumococcal 2020-05-30 [...] y of Vaccine Quad .5 mL 00:00:00 [facility] 6[facility] MO [facility] Pneumococcal 2020-05-30 Completed [facility] Polysaccharide, 00:00:00 [facility] PPSV23 (PNEUMOVAX) [facility] Influenza Virus 2020-05-30 Completed [facility] Vaccine Quad .5 mL 00:00:00 [facility] 6[facility] MO [facility] Pneumococcal 2020-05-30 Completed [facility] Polysaccharide, 00:00:00 [facility] PPSV23 (PNEUMOVAX) [facility] Influenza Virus 2020-05-30 Completed [facility] Vaccine Quad .5 mL 00:00:00 [facility] 6[facility] MO [facility] Pneumococcal 2020-05-30 Completed [facility] f Polysaccharide, 00:00:00 [facility] PPSV23 (PNEUMOVAX) Branch Influenza Virus 2020-05-30 Completed [facility] Vaccine Quad .5 mL 00:00:00 [facility] 6+ MO [facility] Pneumococcal 2020-05-30 Completed [facility] f Polysaccharide, 00:00:00 [facility] PPSV23 (PNEUMOVAX) [facility] Influenza Virus 2020-05-30 Completed [facility] Vaccine Quad .5 mL 00:00:00 [facility] 6+ MO [facility] Pneumococcal 2020-05-30 Completed [facility] f Polysaccharide, 00:00:00 [facility] PPSV23 (PNEUMOVAX) [facility] Influenza Virus 2020-05-30 Completed [facility] Vaccine Quad .5 mL 00:00:00 [facility] 6[facility] MO [facility] Pneumococcal 2020-05-30 Completed [facility] f Polysaccharide, 00:00:00 [facility] PPSV23 (PNEUMOVAX) Branch Influenza Virus 2020-05-30 Completed [facility] Vaccine Quad .5 mL 00:00:00 [facility] 6[facility] MO [facility] Pneumococcal 2020-05-30 Completed [facility] f Polysaccharide, 00:00:00 [facility] PPSV23 (PNEUMOVAX) [facility] Influenza Virus 2020-05-30 Completed [facility] Vaccine Quad .5 mL 00:00:00 [facility] 6[facility] MO [facility] Pneumococcal 2020-05-30 [...] 2020-05-30 Completed [facility] f Polysaccharide, 00:00:00 [facility] PPSV23 (PNEUMOVAX) [facility] Influenza Virus 2020-05-30 Completed [facility] Vaccine Quad .5 mL 00:00:00 [facility] 6[facility] MO [facility] Pneumococcal 2020-05-30 Completed [facility] Polysaccharide, 00:00:00 [facility] PPSV23 (PNEUMOVAX) [facility] Influenza Virus 2020-05-30 Completed [facility] Vaccine Quad .5 mL 00:00:00 [facility] 6[facility] MO [facility] Pneumococcal 2020-05-30 Completed [facility] f Polysaccharide, 00:00:00 [facility] PPSV23 (PNEUMOVAX) Branch Influenza Virus 2020-05-30 Completed [facility] Vaccine Quad .5 mL 00:00:00 [facility] 6[facility] MO [facility] Pneumococcal 2020-05-30 Completed [facility] f Polysaccharide, 00:00:00 [facility] PPSV23 (PNEUMOVAX) Branch Influenza Virus 2020-05-30 Completed [facility] Vaccine Quad .5 mL 00:00:00 [facility] 6[facility] MO [facility] Pneumococcal 2020-05-30 Completed [facility] f Polysaccharide, 00:00:00 [facility] PPSV23 (PNEUMOVAX) [facility] Influenza Virus 2020-05-30 Completed [facility] Vaccine Quad .5 mL 00:00:00 [facility] 6[facility] MO [facility] Pneumococcal 2020-05-30 Completed [facility] Polysaccharide, 00:00:00 [facility] PPSV23 (PNEUMOVAX) Branch Influenza Virus 2020-05-30 Completed [facility] Vaccine Quad .5 mL 00:00:00 [facility] 6[facility] MO [facility] Pneumococcal 2020-05-30 Completed [facility] f Polysaccharide, 00:00:00 [facility] PPSV23 (PNEUMOVAX) Branch Influenza Virus 2020-05-30 Completed [facility] Vaccine Quad .5 mL 00:00:00 [facility] 6[facility] MO [facility] Pneumococcal 2020-05-30 Completed [facility] f Polysaccharide, 00:00:00 [facility] PPSV23 (PNEUMOVAX) Branch Influenza Virus 2020-05-30 Completed [facility] Vaccine Quad .5 mL 00:00:00 [facility] 6[facility] MO [facility] Pneumococcal 2020-05-30 Completed [facility] f Polysaccharide, 00:00:00 [facility] PPSV23 (PNEUMOVAX) Branch Influenza Virus 2020-05-30 Completed [facility] Vaccine Quad .5 mL 00:00:00 [facility] 6+ MO Branch Pneumococcal 2020-05-30 Completed [facility] o f Polysaccharide, 00:00:00 [facility] PPSV23 (PNEUMOVAX) Branch Influenza Virus 2020-05-30 Completed [facility] Vaccine Quad .5 mL 00:00:00 [facility] 6+ MO [facility] Pneumococcal 2020-05-30 Completed [facility] f Polysaccharide, 00:00:00 [facility] PPSV23 (PNEUMOVAX) Branch Influenza Virus 2020-05-30 Completed [facility] Vaccine Quad .5 mL 00:00:00 [facility] 6[facility] MO [facility] Pneumococcal 2020-05-30 Completed [facility] f Polysaccharide, 00:00:00 [facility] PPSV23 (PNEUMOVAX) Branch Influenza Virus 2020-05-30 Completed [facility] Vaccine Quad .5 mL 00:00:00 [facility] 6[facility] MO [facility] Pneumococcal 2020-05-30 Completed [facility] f Polysaccharide, 00:00:00 [facility] PPSV23 (PNEUMOVAX) Branch Influenza Virus 2020-05-30 Completed [facility] Vaccine Quad .5 mL 00:00:00 [facility] 6[facility] MO [facility] Pneumococcal 2020-05-30 [...] y of Vaccine Quad .5 mL 00:00:00 [facility] 6[facility] MO [facility] Pneumococcal 2020-05-30 Completed [facility] f Polysaccharide, 00:00:00 [facility] PPSV23 (PNEUMOVAX) Branch Influenza Virus 2020-05-30 Completed [facility] Vaccine Quad .5 mL 00:00:00 [facility] 6[facility] MO [facility] Pneumococcal 2020-05-30 Completed [facility] f Polysaccharide, 00:00:00 [facility] PPSV23 (PNEUMOVAX) Branch Influenza Virus 2020-05-30 Completed [facility] Vaccine Quad .5 mL 00:00:00 [facility] 6[facility] MO [facility] Pneumococcal 2020-05-30 Completed [facility] f Polysaccharide, 00:00:00 [facility] PPSV23 (PNEUMOVAX) Branch Influenza Virus 2020-05-30 Completed [facility] Vaccine Quad .5 mL 00:00:00 [facility] 6[facility] MO [facility] Pneumococcal 2020-05-30 Completed [facility] f Polysaccharide, 00:00:00 [facility] PPSV23 (PNEUMOVAX) Branch Influenza Virus 2020-05-30 Completed [facility] Vaccine Quad .5 mL 00:00:00 [facility] 6[facility] MO [facility] Pneumococcal 2020-05-30 Completed [facility] f Polysaccharide, 00:00:00 [facility] PPSV23 (PNEUMOVAX) Branch Influenza Virus 2020-05-30 Completed [facility] Vaccine Quad .5 mL 00:00:00 [facility] 6+ MO [facility] Pneumococcal 2020-05-30 Completed [facility] f Polysaccharide, 00:00:00 [facility] PPSV23 (PNEUMOVAX) Branch Influenza Virus 2020-05-30 Completed [facility] Vaccine Quad .5 mL 00:00:00 [facility] 6+ MO [facility] Pneumococcal 2020-05-30 Completed [facility] o f Polysaccharide, 00:00:00 [facility] PPSV23 (PNEUMOVAX) Branch Influenza Virus 2020-05-30 Completed [facility] Vaccine Quad .5 mL 00:00:00 [facility] 6+ MO [facility] Pneumococcal 2020-05-30 Completed [facility] o f Polysaccharide, 00:00:00 [facility] PPSV23 (PNEUMOVAX) Branch Influenza Virus 2020-05-30 Completed [facility] Vaccine Quad .5 mL 00:00:00 [facility] 6[facility] MO [facility] Pneumococcal 2020-05-30 Completed [facility] o f Polysaccharide, 00:00:00 [facility] PPSV23 (PNEUMOVAX) Branch Influenza Virus 2020-05-30 Completed [facility] Vaccine Quad .5 mL 00:00:00 [facility] 6+ MO [facility] Pneumococcal 2020-05-30 Completed [facility] o f Polysaccharide, 00:00:00 [facility] PPSV23 (PNEUMOVAX) Branch Influenza Virus 2020-05-30 Completed [facility] Vaccine Quad .5 mL 00:00:00 [facility] 6[facility] MO [facility] Pneumococcal 2020-05-30 Completed [facility] o f Polysaccharide, 00:00:00 [facility] PPSV23 (PNEUMOVAX) Branch Influenza Virus 2020-05-30 Completed [facility] Vaccine Quad .5 mL 00:00:00 [facility] 6[facility] MO [facility] Pneumococcal 2020-05-30 Completed [facility] o f Polysaccharide, 00:00:00 [facility] PPSV23 (PNEUMOVAX) Branch Influenza Virus 2020-05-30 Completed [facility] Vaccine Quad .5 mL 00:00:00 [facility] 6+ MO [facility] Pneumococcal 2020-05-30 Completed [facility] o f Polysaccharide, 00:00:00 [facility] PPSV23 (PNEUMOVAX) Branch Influenza Virus 2020-05-30 Completed [facility] Vaccine Quad .5 mL 00:00:00 [facility] 6+ MO [facility] Pneumococcal 2020-05-30 Completed [facility] o f Polysaccharide, 00:00:00 [facility] PPSV23 (PNEUMOVAX) Branch Influenza Virus 2020-05-30 Completed [facility] Vaccine Quad .5 mL 00:00:00 [facility] 6+ MO Branch (FLUZONE/FLULAVAL/F LUARIX) Pneumococcal 2020-05-30 Completed [facility] o f Polysaccharide, 00:00:00 [facility] PPSV23 (PNEUMOVAX) Branch Td 2020-02-17 Completed [facility] 00:00:00 [facility] Td 2020-02-17 Completed [facility] of 00:00:00 [facility] Td 2020-02-17 Completed [facility] of 00:00:00 [facility] Td 2020-02-17 Completed [facility] of 00:00:00 [facility] Td 2020-02-17 Completed [facility] of 00:00:00 [facility] Td 2020-02-17 Completed [facility] of 00:00:00 [facility] Td 2020-02-17 Completed [facility] 00:00:00 [facility] Td 2020-02-17 Completed [facility] 00:00:00 [facility] Td 2020-02-17 Completed [facility] 00:00:00 [facility] Td 2020-02-17 Completed [facility] 00:00:00 [facility] Td 2020-02-17 Completed [facility] 00:00:00 [facility] Td 2020-02-17 Completed [facility] 00:00:00 [facility] Td 2020-02-17 Completed [facility] 00:00:00 [facility] Td 2020-02-17 Completed [facility] 00:00:00 [facility] Td 2020-02-17 Completed [facility] 00:00:00 [facility] Td 2020-02-17 Completed [facility] 00:00:00 [facility] Td 2020-02-17 Completed [facility] 00:00:00 [facility] Td 2020-02-17 Completed [facility] 00:00:00 [facility] Td 2020-02-17 Completed [facility] 00:00:00 [facility] Td 2020-02-17 Completed [facility] 00:00:00 [facility] Td 2020-02-17 Completed [facility] 00:00:00 [facility] [...] TD, NOS 2020-02-17 Completed [facility] 00:00:00 [facility] TD, NOS 2020-02-17 Completed [facility] 00:00:00 [facility] TD, NOS 2020-02-17 Completed [facility] 00:00:00 [facility] TD, NOS 2020-02-17 Completed [facility] 00:00:00 [facility] TD, NOS 2020-02-17 Completed [facility] 00:00:00 [facility] TD, NOS 2020-02-17 Completed [facility] 00:00:00 [facility] TD, NOS 2020-02-17 Completed [facility] 00:00:00 [facility] TD, NOS 2020-02-17 Completed [facility] 00:00:00 [facility] TD, NOS 2020-02-17 Completed [facility] 00:00:00 [facility] TD, NOS 2020-02-17 Completed [facility] 00:00:00 [facility] TD, NOS 2020-02-17 Completed [facility] 00:00:00 [facility] TD, NOS 2020-02-17 Completed [facility] 00:00:00 [facility] TD, NOS 2020-02-17 Completed [facility] of 00:00:00 [facility] Influenza Virus 2016-06-05 Completed [facility]it y of Vaccine (3+ yrs) 00:00:00 [facility] Influenza Virus 2016-06-05 Completed [facility] of Vaccine 00:00:00 [facility] Influenza Virus 2016-06-05 Completed [facility] of Vaccine (3+ yrs) 00:00:00 [facility] Influenza Virus 2016-06-05 Completed [facility] of Vaccine 00:00:00 [facility] Influenza Virus 2016-06-05 Completed [facility] of Vaccine (3+ yrs) 00:00:00 [facility] Influenza Virus 2016-06-05 Completed [facility] y of Vaccine 00:00:00 [facility] Influenza Virus 2016-06-05 Completed [facility] of Vaccine (3+ yrs) 00:00:00 [facility] Influenza Virus 2016-06-05 Completed [facility] of Vaccine 00:00:00 [facility] Influenza Virus 2016-06-05 Completed [facility] of Vaccine (3+ yrs) 00:00:00 [facility] Influenza Virus 2016-06-05 Completed [facility] of Vaccine 00:00:00 [facility] Influenza Virus 2016-06-05 Completed [facility] y of Vaccine (3+ yrs) 00:00:00 [facility] Influenza Virus 2016-06-05 Completed [facility] y of Vaccine 00:00:00 [facility] Influenza Virus 2016-06-05 Completed [facility] y of Vaccine (3+ yrs) 00:00:00 [facility] Influenza Virus 2016-06-05 Completed [facility] y of Vaccine 00:00:00 [facility] Influenza Virus 2016-06-05 Completed [facility] y of Vaccine (3+ yrs) 00:00:00 [facility] Influenza Virus 2016-06-05 Completed [facility] y of Vaccine 00:00:00 [facility] Influenza Virus 2016-06-05 Completed [facility] y of Vaccine (3+ yrs) 00:00:00 [facility] Influenza Virus 2016-06-05 Completed [facility] of Vaccine 00:00:00 [facility] Influenza Virus 2016-06-05 Completed [facility] y of Vaccine (3+ yrs) 00:00:00 [facility] Influenza Virus 2016-06-05 Completed [facility] of Vaccine 00:00:00 [facility] Influenza Virus 2016-06-05 Completed [facility] y of Vaccine (3+ yrs) 00:00:00 [facility] Influenza Virus 2016-06-05 Completed [facility] of Vaccine 00:00:00 [facility] Influenza Virus 2016-06-05 Completed [facility] of Vaccine (3+ yrs) 00:00:00 [facility] Influenza Virus 2016-06-05 Completed [facility] y of Vaccine 00:00:00 [facility] Influenza Virus 2016-06-05 Completed [facility] y of Vaccine (3+ yrs) 00:00:00 [facility] Influenza Virus 2016-06-05 Completed [facility] y of Vaccine 00:00:00 [facility] Influenza Virus 2016-06-05 Completed [facility] y of Vaccine (3+ yrs) 00:00:00 [facility] Influenza Virus 2016-06-05 Completed [facility] of Vaccine 00:00:00 [facility] Influenza Virus 2016-06-05 Completed [facility] y of Vaccine (3+ yrs) 00:00:00 [facility] Influenza Virus 2016-06-05 Completed [facility] y of Vaccine 00:00:00 [facility] Influenza Virus 2016-06-05 Completed [facility] y of Vaccine (3+ yrs) 00:00:00 [facility] Influenza Virus 2016-06-05 Completed [facility] of Vaccine 00:00:00 [facility] Influenza Virus 2016-06-05 Completed [facility] of Vaccine (3+ yrs) 00:00:00 [facility] Influenza Virus 2016-06-05 Completed [facility] y of Vaccine 00:00:00 [facility] Influenza Virus 2016-06-05 Completed [facility] of Vaccine (3+ yrs) 00:00:00 [facility] Influenza Virus 2016-06-05 Completed [facility] of Vaccine 00:00:00 [facility] Influenza Virus 2016-06-05 Completed [facility] y of Vaccine (3+ yrs) 00:00:00 [facility] Influenza Virus 2016-06-05 Completed [facility] y of Vaccine 00:00:00 [facility] Influenza Virus 2016-06-05 Completed [facility] y of Vaccine (3+ yrs) 00:00:00 [facility] Influenza Virus 2016-06-05 Completed [facility] y of Vaccine 00:00:00 [facility] Influenza Virus 2016-06-05 Completed [facility] y of Vaccine (3+ yrs) 00:00:00 [facility] Influenza Virus 2016-06-05 Completed [facility] y of Vaccine 00:00:00 [facility] Influenza Virus 2016-06-05 Completed [facility] y of Vaccine (3+ yrs) 00:00:00 [facility] Influenza Virus 2016-06-05 Completed [facility] y of Vaccine 00:00:00 [facility] Influenza Virus 2016-06-05 Completed [facility] of Vaccine (3+ yrs) 00:00:00 [facility] Influenza Virus 2016-06-05 Completed [facility] y of Vaccine 00:00:00 [facility] Influenza Virus 2016-06-05 Completed [facility] y of Vaccine (3+ yrs) 00:00:00 [facility] Influenza Virus 2016-06-05 Completed [facility] y of Vaccine 00:00:00 [facility] Influenza Virus 2016-06-05 Completed [facility] y of Vaccine (3+ yrs) 00:00:00 [facility] Influenza Virus 2016-06-05 Completed [facility] y of Vaccine 00:00:00 [facility] Influenza Virus 2016-06-05 Completed [facility] of Vaccine (3+ yrs) 00:00:00 [facility] Influenza Virus 2016-06-05 Completed [facility] y of Vaccine 00:00:00 [facility] Influenza Virus 2016-06-05 Completed [facility] of Vaccine (3+ yrs) 00:00:00 [facility] Influenza Virus 2016-06-05 Completed [facility] y of Vaccine 00:00:00 [facility] Influenza Virus 2016-06-05 Completed [facility] of Vaccine (3+ yrs) 00:00:00 [facility] Influenza Virus 2016-06-05 Completed [facility] y of Vaccine 00:00:00 [facility] Influenza Virus 2016-06-05 Completed [facility] of Vaccine (3+ yrs) 00:00:00 [facility] Influenza Virus 2016-06-05 Completed [facility] y of Vaccine 00:00:00 [facility] Influenza Virus 2016-06-05 Completed [facility] of Vaccine (3+ yrs) 00:00:00 [facility] Influenza Virus 2016-06-05 Completed [facility] y of Vaccine 00:00:00 [facility] Influenza Virus 2016-06-05 Completed [facility] y of Vaccine (3+ yrs) 00:00:00 [facility] Influenza Virus 2016-06-05 Completed [facility] y of Vaccine 00:00:00 [facility] Influenza Virus 2016-06-05 Completed [facility] y of Vaccine (3+ yrs) 00:00:00 [facility] Influenza Virus 2016-06-05 Completed [facility] y of Vaccine 00:00:00 [facility] Influenza Virus 2016-06-05 Completed [facility] y of Vaccine (3+ yrs) 00:00:00 [facility] Influenza Virus 2016-06-05 Completed [facility] y of Vaccine 00:00:00 [facility] Influenza Virus 2016-06-05 Completed [facility] y of Vaccine (3+ yrs) 00:00:00 [facility] Influenza Virus 2016-06-05 Completed [facility] y of Vaccine 00:00:00 [facility] Influenza Virus 2016-06-05 Completed [facility] y of Vaccine (3+ yrs) 00:00:00 [facility] Influenza Virus 2016-06-05 Completed [facility] y of Vaccine 00:00:00 [facility] Influenza Virus 2016-06-05 Completed [facility] y of Vaccine (3+ yrs) 00:00:00 [facility] Influenza Virus 2016-06-05 Completed [facility] y of Vaccine 00:00:00 [facility] Influenza Virus 2016-06-05 Completed [facility] y of Vaccine (3+ yrs) 00:00:00 [facility] Influenza Virus 2016-06-05 Completed [facility] y of Vaccine 00:00:00 [facility] Influenza Virus 2016-06-05 Completed [facility] y of Vaccine (3+ yrs) 00:00:00 [facility] Influenza Virus 2016-06-05 Completed [facility] y of Vaccine 00:00:00 [facility] Influenza Virus 2016-06-05 Completed [facility] y of Vaccine (3+ yrs) 00:00:00 [facility] Influenza Virus 2016-06-05 Completed [facility] y of Vaccine 00:00:00 [facility] Influenza Virus 2016-06-05 Completed [facility] y of Vaccine (3+ yrs) 00:00:00 [facility] Influenza Virus 2016-06-05 Completed [facility] y of Vaccine 00:00:00 [facility] Influenza Virus 2016-06-05 Completed [facility] y of Vaccine (3+ yrs) 00:00:00 [facility] Influenza Virus 2016-06-05 Completed [facility] y of Vaccine 00:00:00 [facility] Influenza Virus 2016-06-05 Completed [facility] y of Vaccine (3+ yrs) 00:00:00 [facility] Influenza Virus 2016-06-05 Completed [facility] y of Vaccine 00:00:00 [facility] Influenza Virus 2016-06-05 Completed [facility] y of Vaccine (3+ yrs) 00:00:00 [facility] Influenza Virus 2016-06-05 Completed [facility] y of Vaccine 00:00:00 [facility] Influenza Virus 2016-06-05 Completed [facility] y of Vaccine (3+ yrs) 00:00:00 [facility] Influenza Virus 2016-06-05 Completed [facility] y of Vaccine 00:00:00 [facility] Influenza Virus 2016-06-05 Completed [facility] of Vaccine (3+ yrs) 00:00:00 [facility] Influenza Virus 2016-06-05 Completed [facility] y of Vaccine 00:00:00 [facility] Influenza Virus 2016-06-05 Completed [facility] of Vaccine (3+ yrs) 00:00:00 [facility] Influenza Virus 2016-06-05 Completed [facility] y of Vaccine 00:00:00 [facility] Influenza Virus 2016-06-05 Completed [facility] y of Vaccine (3+ yrs) 00:00:00 [facility] Influenza Virus 2016-06-05 Completed [facility] y of Vaccine 00:00:00 [facility] Influenza Virus 2016-06-05 Completed [facility] of Vaccine (3+ yrs) 00:00:00 [facility] Influenza Virus 2016-06-05 Completed [facility] y of Vaccine 00:00:00 [facility] Influenza Virus 2016-06-05 Completed [facility] of Vaccine (3+ yrs) 00:00:00 [facility] Influenza Virus 2016-06-05 Completed [facility] of Vaccine 00:00:00 [facility] Influenza Virus 2016-06-05 Completed [facility] of Vaccine (3+ yrs) 00:00:00 [facility] Influenza Virus 2016-06-05 Completed [facility] of Vaccine 00:00:00 [facility] Influenza Virus 2016-06-05 Completed [facility] of Vaccine (3+ yrs) 00:00:00 [facility] Influenza Virus 2016-06-05 Completed [facility] of Vaccine 00:00:00 [facility] Influenza Virus 2016-06-05 Completed [facility] of Vaccine (3+ yrs) 00:00:00 [facility] Influenza Virus 2016-06-05 Completed [facility] of Vaccine 00:00:00 [facility] Influenza Virus 2016-06-05 Completed [facility] of Vaccine (3+ yrs) 00:00:00 [facility] Influenza Virus 2016-06-05 Completed [facility] of Vaccine 00:00:00 [facility] Influenza Virus 2016-06-05 Completed [facility] of Vaccine (3+ yrs) 00:00:00 [facility] Influenza Virus 2016-06-05 Completed [facility] of Vaccine 00:00:00 [facility] Influenza Virus 2016-06-05 Completed [facility] of Vaccine (3+ yrs) 00:00:00 [facility] Influenza Virus 2016-06-05 Completed [facility] of Vaccine 00:00:00 [facility] Influenza Virus 2016-06-05 Completed [facility] of Vaccine (3+ yrs) 00:00:00 [facility] Influenza Virus 2016-06-05 Completed [facility] of Vaccine 00:00:00 [facility] Influenza Virus 2016-06-05 Completed [facility] of Vaccine (3+ yrs) 00:00:00 [facility] Influenza Virus 2016-06-05 Completed [facility] of Vaccine 00:00:00 [facility] Influenza Virus 2016-06-05 Completed [facility] of Vaccine (3+ yrs) 00:00:00 [facility] Influenza Virus 2016-06-05 Completed [facility] of Vaccine 00:00:00 [facility] Influenza Virus 2016-06-05 Completed [facility] Vaccine (3+ yrs) 00:00:00 [facility] Influenza Virus 2016-06-05 Completed [facility] Vaccine 00:00:00 [facility] Influenza Virus 2016-06-05 Completed [facility] Vaccine (3+ yrs) 00:00:00 [facility] Influenza Virus 2016-06-05 Completed [facility] Vaccine 00:00:00 [facility] Influenza Virus 2016-06-05 Completed [facility] Vaccine (3+ yrs) 00:00:00 [facility] Influenza Virus 2016-06-05 Completed [facility] Vaccine 00:00:00 [facility] Influenza Virus 2016-06-05 Completed [facility] Vaccine (3+ yrs) 00:00:00 [facility] Influenza Virus 2016-06-05 Completed [facility] Vaccine 00:00:00 [facility] Influenza Virus 2016-06-05 Completed [facility] Vaccine (3+ yrs) 00:00:00 [facility] Influenza Virus 2016-06-05 Completed [facility] Vaccine 00:00:00 [facility] Influenza Virus 2016-06-05 Completed [facility] Vaccine (3+ yrs) 00:00:00 [facility] Influenza Virus 2016-06-05 Completed [facility] Vaccine 00:00:00 [facility] Influenza Virus 2016-06-05 Completed [facility] Vaccine (3+ yrs) 00:00:00 [facility] Influenza Virus 2016-06-05 Completed [facility] Vaccine 00:00:00 [facility] Influenza Virus 2016-06-05 Completed [facility] Vaccine (3+ yrs) 00:00:00 [facility] Influenza Virus 2016-06-05 Completed [facility] Vaccine 00:00:00 [facility] Influenza Virus 2016-06-05 Completed [facility] Vaccine (3+ yrs) 00:00:00 [facility] Influenza Virus 2016-06-05 Completed [facility] Vaccine 00:00:00 [facility] Influenza Virus 2016-06-05 Completed [facility] Vaccine (3+ yrs) 00:00:00 [facility] Influenza Virus 2016-06-05 Completed [facility] Vaccine 00:00:00 [facility] Influenza Virus 2016-06-05 Completed [facility] Vaccine (3+ yrs) 00:00:00 [facility] Influenza Virus 2016-06-05 Completed [facility] Vaccine 00:00:00 [facility] Influenza Virus 2016-06-05 Completed [facility] Vaccine (3+ yrs) 00:00:00 [facility] Influenza Virus 2016-06-05 Completed [facility] Vaccine 00:00:00 [facility] Influenza Virus 2016-06-05 Completed [facility] Vaccine (3+ yrs) 00:00:00 [facility] Influenza Virus 2016-06-05 Completed [facility] Vaccine 00:00:00 [facility] Influenza Virus 2016-06-05 Completed [facility] Vaccine (3+ yrs) 00:00:00 [facility] Influenza Virus 2016-06-05 Completed [facility] Vaccine 00:00:00 [facility] Influenza Virus 2016-06-05 Completed [facility] Vaccine (3+ yrs) 00:00:00 [facility] Influenza Virus 2016-06-05 Completed [facility] Vaccine 00:00:00 [facility] Influenza Virus 2016-06-05 Completed [facility] Vaccine (3+ yrs) 00:00:00 [facility] Influenza Virus 2016-06-05 Completed [facility] Vaccine 00:00:00 [facility] Influenza Virus 2016-06-05 Completed [facility] Vaccine (3+ yrs) 00:00:00 [facility] Influenza Virus 2016-06-05 Completed [facility] Vaccine 00:00:00 [facility] Influenza Virus 2016-06-05 Completed [facility] Vaccine (3+ yrs) 00:00:00 [facility] Influenza Virus 2016-06-05 Completed [facility] Vaccine 00:00:00 [facility] Influenza Virus 2016-06-05 Completed [facility] Vaccine (3+ yrs) 00:00:00 [facility] Influenza Virus 2016-06-05 Completed [facility] Vaccine 00:00:00 [facility] Influenza Virus 2016-06-05 Completed [facility] Vaccine (3+ yrs) 00:00:00 [facility] Influenza Virus 2016-06-05 Completed [facility] Vaccine 00:00:00 [facility] Influenza Virus 2016-06-05 Completed [facility] Vaccine (3+ yrs) 00:00:00 [facility] Influenza Virus 2016-06-05 Completed [facility] Vaccine 00:00:00 [facility] Influenza Virus 2016-06-05 Completed [facility] Vaccine (3+ yrs) 00:00:00 [facility] Influenza Virus 2016-06-05 Completed [facility] Vaccine 00:00:00 [facility] Influenza Virus 2016-06-05 Completed [facility] Vaccine (3+ yrs) 00:00:00 [facility] Influenza Virus 2016-06-05 Completed [facility] Vaccine 00:00:00 [facility] Influenza Virus 2016-06-05 Completed [facility] Vaccine (3+ yrs) 00:00:00 [facility] Influenza Virus 2016-06-05 Completed [facility] Vaccine 00:00:00 [facility] Influenza Virus 2016-06-05 Completed [facility] Vaccine (3+ yrs) 00:00:00 [facility] Influenza Virus 2016-06-05 Completed [facility] Vaccine 00:00:00 [facility] TDAP 2016-02-28 Completed [facility] 00:00:00 [facility] TDAP 2016-02-28 Completed [facility] 00:00:00 [facility] TDAP 2016-02-28 Completed [facility] 00:00:00 [facility] TDAP 2016-02-28 Completed [facility] 00:00:00 [facility] TDAP 2016-02-28 Completed [facility] 00:00:00 [facility] TDAP 2016-02-28 Completed [facility] 00:00:00 [facility] TDAP 2016-02-28 Completed [facility] 00:00:00 [facility] TDAP 2016-02-28 Completed [facility] 00:00:00 [facility] TDAP 2016-02-28 Completed [facility] 00:00:00 [facility] TDAP 2016-02-28 Completed [facility] 00:00:00 [facility] TDAP 2016-02-28 Completed [facility] 00:00:00 [facility] TDAP 2016-02-28 Completed [facility] 00:00:00 [facility] TDAP 2016-02-28 Completed [facility] 00[facility]00:00 [facility] TDAP 2016-02-28 Completed [facility] 00:00:00 [facility] TDAP 2016-02-28 Completed [facility] 00:00:00 [facility] TDAP 2016-02-28 Completed [facility] 00:00:00 [facility] TDAP 2016-02-28 Completed [facility] 00:00:00 [facility] TDAP 2016-02-28 Completed [facility] 00:00:00 [facility] TDAP 2016-02-28 Completed [facility] 00:00:00 [facility] TDAP 2016-02-28 Completed [facility] 00:00:00 [facility] TDAP 2016-02-28 Completed [facility] 00:00:00 [facility] TDAP 2016-02-28 Completed [facility] 00:00:00 [facility] TDAP 2016-02-28 Completed [facility] 00:00:00 [facility] TDAP 2016-02-28 Completed [facility] 00:00:00 [facility] TDAP 2016-02-28 Completed [facility] 00:00:00 [facility] TDAP 2016-02-28 Completed [facility] 00:00:00 [facility] TDAP 2016-02-28 Completed [facility] 00:00:00 [facility] TDAP 2016-02-28 Completed [facility] 00:00:00 [facility] TDAP 2016-02-28 Completed [facility] 00:00:00 [facility] TDAP 2016-02-28 Completed [facility] 00:00:00 [facility] TDAP 2016-02-28 Completed [facility] 00:00:00 [facility] TDAP 2016-02-28 Completed [facility] 00:00:00 [facility] TDAP 2016-02-28 Completed [facility] 00:00:00 [facility] TDAP 2016-02-28 Completed [facility] 00:00:00 [facility] TDAP 2016-02-28 Completed [facility] 00:00:00 [facility] TDAP 2016-02-28 Completed [facility] 00:00:00 [facility] TDAP 2016-02-28 Completed [facility] 00:00:00 [facility] TDAP 2016-02-28 Completed [facility] 00:00:00 [facility] TDAP 2016-02-28 Completed [facility] 00:00:00 [facility] TDAP 2016-02-28 Completed [facility] 00:00:00 [facility] TDAP 2016-02-28 Completed [facility] 00:00:00 [facility] TDAP 2016-02-28 Completed [facility] 00:00:00 [facility] TDAP 2016-02-28 Completed [facility] 00:00:00 [facility] TDAP 2016-02-28 Completed [facility] 00:00:00 [facility] TDAP 2016-02-28 Completed [facility] 00:00:00 [facility] TDAP 2016-02-28 Completed [facility] 00:00:00 [facility] TDAP 2016-02-28 Completed [facility] 00:00:00 [facility] TDAP 2016-02-28 Completed [facility] 00:00:00 [facility] TDAP 2016-02-28 Completed [facility] 00:00:00 [facility] TDAP 2016-02-28 Completed [facility] 00:00:00 [facility] TDAP 2016-02-28 Completed [facility] 00:00:00 [facility] TDAP 2016-02-28 Completed [facility] 00:00:00 [facility] TDAP 2016-02-28 Completed [facility] 00:00:00 [facility] TDAP 2016-02-28 Completed [facility] 00:00:00 [facility] TDAP 2016-02-28 Completed [facility] 00:00:00 [facility] TDAP 2016-02-28 Completed [facility] 00:00:00 [facility] TDAP 2016-02-28 Completed [facility] 00:00:00 [facility] TDAP 2016-02-28 Completed [facility] 00:00:00 [facility] TDAP 2016-02-28 Completed [facility] 00:00:00 [facility] TDAP 2016-02-28 Completed [facility] 00:00:00 [facility] TDAP 2016-02-28 Completed [facility] 00:00:00 [facility] TDAP 2016-02-28 Completed [facility] 00:00:00 [facility] TDAP 2016-02-28 Completed [facility] 00:00:00 [facility] TDAP 2016-02-28 Completed [facility] 00:00:00 [facility] TDAP 2016-02-28 Completed [facility] 00:00:00 [facility] TDAP 2016-02-28 Completed [facility] 00:00:00 [facility] TDAP 2016-02-28 Completed [facility] 00:00:00 [facility] TDAP 2016-02-28 Completed [facility] 00:00:00 [facility] TDAP 2016-02-28 Completed [facility] 00:00:00 [facility] TDAP 2016-02-28 Completed [facility] 00:00:00 [facility] TDAP 2016-02-28 Completed [facility] 00:00:00 [facility] TDAP 2016-02-28 Completed [facility] 00:00:00 [facility] TDAP 2016-02-28 Completed [facility] 00:00:00 [facility] TDAP 2016-02-28 Completed [facility] 00:00:00 [facility] TDAP 2016-02-28 Completed [facility] 00:00:00 [facility] TDAP 2016-02-28 Completed [facility] 00:00:00 [facility] TDAP 2016-02-28 Completed [facility] 00:00:00 [facility] TDAP 2016-02-28 Completed [facility] 00:00:00 [facility] TDAP 2016-02-28 Completed [facility] 00:00:00 [facility] TDAP 2016-02-28 Completed [facility] 00:00:00 [facility] TDAP 2016-02-28 Completed [facility] 00:00:00 [facility] TDAP 2016-02-28 Completed [facility] 00:00:00 [facility] TDAP 2016-02-28 Completed [facility] 00:00:00 [facility] Influenza Virus 2015-04-24 Completed [facility] Vaccine (3+ yrs) 00:00:00 [facility] Influenza Virus 2015-04-24 Completed [facility] Vaccine 00:00:00 [facility] Influenza Virus 2015-04-24 Completed [facility] Vaccine (3+ yrs) 00:00:00 [facility] Influenza Virus 2015-04-24 Completed [facility] Vaccine 00:00:00 [facility] Influenza Virus 2015-04-24 Completed [facility] Vaccine (3+ yrs) 00:00:00 [facility] Influenza Virus 2015-04-24 Completed [facility] Vaccine 00:00:00 [facility] Influenza Virus 2015-04-24 Completed [facility] Vaccine (3+ yrs) 00:00:00 [facility] Influenza Virus 2015-04-24 Completed [facility] Vaccine 00:00:00 [facility] Influenza Virus 2015-04-24 Completed [facility] Vaccine (3+ yrs) 00:00:00 [facility] Influenza Virus 2015-04-24 Completed [facility] Vaccine 00:00:00 [facility] Influenza Virus 2015-04-24 Completed [facility] Vaccine (3+ yrs) 00:00:00 [facility] Influenza Virus 2015-04-24 Completed [facility] Vaccine 00:00:00 [facility] Influenza Virus 2015-04-24 Completed [facility] Vaccine (3+ yrs) 00:00:00 [facility] Influenza Virus 2015-04-24 Completed [facility] Vaccine 00:00:00 [facility] Influenza Virus 2015-04-24 Completed [facility] Vaccine (3+ yrs) 00:00:00 [facility] Influenza Virus 2015-04-24 Completed [facility] Vaccine 00:00:00 [facility] Influenza Virus 2015-04-24 Completed [facility] Vaccine (3+ yrs) 00:00:00 [facility] Influenza Virus 2015-04-24 Completed [facility] Vaccine 00:00:00 [facility] Influenza Virus 2015-04-24 Completed [facility] Vaccine (3+ yrs) 00:00:00 [facility] Influenza Virus 2015-04-24 Completed [facility] Vaccine 00:00:00 [facility] Influenza Virus 2015-04-24 Completed [facility] Vaccine (3+ yrs) 00:00:00 [facility] Influenza Virus 2015-04-24 Completed [facility] Vaccine 00:00:00 [facility] Influenza Virus 2015-04-24 Completed [facility] Vaccine (3+ yrs) 00:00:00 [facility] Influenza Virus 2015-04-24 Completed [facility] Vaccine 00:00:00 [facility] Influenza Virus 2015-04-24 Completed [facility] Vaccine (3+ yrs) 00:00:00 [facility] Influenza Virus 2015-04-24 Completed [facility] Vaccine 00:00:00 [facility] Influenza Virus 2015-04-24 Completed [facility] Vaccine (3+ yrs) 00:00:00 [facility] Influenza Virus 2015-04-24 Completed [facility] Vaccine 00:00:00 [facility] Influenza Virus 2015-04-24 Completed [facility] Vaccine (3+ yrs) 00:00:00 [facility] Influenza Virus 2015-04-24 Completed [facility] Vaccine 00:00:00 [facility] Influenza Virus 2015-04-24 Completed [facility] Vaccine (3+ yrs) 00:00:00 [facility] Influenza Virus 2015-04-24 Completed [facility] Vaccine 00:00:00 [facility] Influenza Virus 2015-04-24 Completed [facility] Vaccine (3+ yrs) 00:00:00 [facility] Influenza Virus 2015-04-24 Completed [facility] Vaccine 00:00:00 [facility] Influenza Virus 2015-04-24 Completed [facility] Vaccine (3+ yrs) 00:00:00 [facility] Influenza Virus 2015-04-24 Completed [facility] Vaccine 00:00:00 [facility] Influenza Virus 2015-04-24 Completed [facility] Vaccine (3+ yrs) 00:00:00 [facility] Influenza Virus 2015-04-24 Completed [facility] Vaccine 00:00:00 [facility] Influenza Virus 2015-04-24 Completed [facility] Vaccine (3+ yrs) 00:00:00 [facility] Influenza Virus 2015-04-24 Completed [facility] Vaccine 00:00:00 [facility] Influenza Virus 2015-04-24 Completed [facility] Vaccine (3+ yrs) 00:00:00 [facility] Influenza Virus 2015-04-24 Completed [facility] Vaccine 00:00:00 [facility] Influenza Virus 2015-04-24 Completed [facility] Vaccine (3+ yrs) 00:00:00 [facility] Influenza Virus 2015-04-24 Completed [facility] Vaccine 00:00:00 [facility] Influenza Virus 2015-04-24 Completed [facility] Vaccine (3+ yrs) 00:00:00 [facility] Influenza Virus 2015-04-24 Completed [facility] Vaccine 00:00:00 [facility] Influenza Virus 2015-04-24 Completed [facility] Vaccine (3+ yrs) 00:00:00 [facility] Influenza Virus 2015-04-24 Completed [facility] Vaccine 00:00:00 [facility] Influenza Virus 2015-04-24 Completed [facility] Vaccine (3+ yrs) 00:00:00 [facility] Influenza Virus 2015-04-24 Completed [facility] Vaccine 00:00:00 [facility] Influenza Virus 2015-04-24 Completed [facility] Vaccine (3+ yrs) 00:00:00 [facility] Influenza Virus 2015-04-24 Completed [facility] Vaccine 00:00:00 [facility] Influenza Virus 2015-04-24 Completed [facility] Vaccine (3+ yrs) 00:00:00 [facility] Influenza Virus 2015-04-24 Completed [facility] Vaccine 00:00:00 [facility] Influenza Virus 2015-04-24 Completed [facility] Vaccine (3+ yrs) 00:00:00 [facility] Influenza Virus 2015-04-24 Completed [facility] Vaccine 00:00:00 [facility] Influenza Virus 2015-04-24 Completed [facility] Vaccine (3+ yrs) 00:00:00 [facility] Influenza Virus 2015-04-24 Completed [facility] Vaccine 00:00:00 [facility] Influenza Virus 2015-04-24 Completed [facility] Vaccine (3+ yrs) 00:00:00 [facility] Influenza Virus 2015-04-24 Completed [facility] Vaccine 00:00:00 [facility] Influenza Virus 2015-04-24 Completed [facility] Vaccine (3+ yrs) 00:00:00 [facility] Influenza Virus 2015-04-24 Completed [facility] Vaccine 00:00:00 [facility] Influenza Virus 2015-04-24 Completed [facility] Vaccine (3+ yrs) 00:00:00 [facility] Influenza Virus 2015-04-24 Completed [facility] Vaccine 00:00:00 [facility] Influenza Virus 2015-04-24 Completed [facility] Vaccine (3+ yrs) 00:00:00 [facility] Influenza Virus 2015-04-24 Completed [facility] Vaccine 00:00:00 [facility] Influenza Virus 2015-04-24 Completed [facility] Vaccine (3+ yrs) 00:00:00 [facility] Influenza Virus 2015-04-24 Completed [facility] Vaccine 00:00:00 [facility] Influenza Virus 2015-04-24 Completed [facility] Vaccine (3+ yrs) 00:00:00 [facility] Influenza Virus 2015-04-24 Completed [facility] Vaccine 00:00:00 [facility] Influenza Virus 2015-04-24 Completed [facility] Vaccine (3+ yrs) 00:00:00 [facility] Influenza Virus 2015-04-24 Completed [facility] Vaccine 00:00:00 [facility] Influenza Virus 2015-04-24 Completed [facility] Vaccine (3+ yrs) 00:00:00 [facility] Influenza Virus 2015-04-24 Completed [facility] Vaccine 00:00:00 [facility] Influenza Virus 2015-04-24 Completed [facility] Vaccine (3+ yrs) 00:00:00 [facility] Influenza Virus 2015-04-24 Completed [facility] Vaccine 00:00:00 [facility] Influenza Virus 2015-04-24 Completed [facility] Vaccine (3+ yrs) 00:00:00 [facility] Influenza Virus 2015-04-24 Completed [facility] Vaccine 00:00:00 [facility] Influenza Virus 2015-04-24 Completed [facility] Vaccine (3+ yrs) 00:00:00 [facility] Influenza Virus 2015-04-24 Completed [facility] Vaccine 00:00:00 [facility] Influenza Virus 2015-04-24 Completed [facility] Vaccine (3+ yrs) 00:00:00 [facility] Influenza Virus 2015-04-24 Completed [facility] Vaccine 00:00:00 [facility] Influenza Virus 2015-04-24 Completed [facility] Vaccine (3+ yrs) 00:00:00 [facility] Influenza Virus 2015-04-24 Completed [facility] Vaccine 00:00:00 [facility] Influenza Virus 2015-04-24 Completed [facility] Vaccine (3+ yrs) 00:00:00 [facility] Influenza Virus 2015-04-24 Completed [facility] Vaccine 00:00:00 [facility] Influenza Virus 2015-04-24 Completed [facility] Vaccine (3+ yrs) 00:00:00 [facility] Influenza Virus 2015-04-24 Completed [facility] Vaccine 00:00:00 [facility] Influenza Virus 2015-04-24 Completed [facility] Vaccine (3+ yrs) 00:00:00 [facility] Influenza Virus 2015-04-24 Completed [facility] Vaccine 00:00:00 [facility] Influenza Virus 2015-04-24 Completed [facility] Vaccine (3+ yrs) 00:00:00 [facility] Influenza Virus 2015-04-24 Completed [facility] Vaccine 00:00:00 [facility] Influenza Virus 2015-04-24 Completed [facility] Vaccine (3+ yrs) 00:00:00 [facility] Influenza Virus 2015-04-24 Completed [facility] Vaccine 00:00:00 [facility] Influenza Virus 2015-04-24 Completed [facility] Vaccine (3+ yrs) 00:00:00 [facility] Influenza Virus 2015-04-24 Completed [facility] Vaccine 00:00:00 [facility] Influenza Virus 2015-04-24 Completed [facility] Vaccine (3+ yrs) 00:00:00 [facility] Influenza Virus 2015-04-24 Completed [facility] Vaccine 00:00:00 [facility] Influenza Virus 2015-04-24 Completed [facility] Vaccine (3+ yrs) 00:00:00 [facility] Influenza Virus 2015-04-24 Completed [facility] Vaccine 00:00:00 [facility] Influenza Virus 2015-04-24 Completed [facility] Vaccine (3+ yrs) 00:00:00 [facility] Influenza Virus 2015-04-24 Completed [facility] Vaccine 00:00:00 [facility] Influenza Virus 2015-04-24 Completed [facility] Vaccine (3+ yrs) 00:00:00 [facility] Influenza Virus 2015-04-24 Completed [facility] Vaccine 00:00:00 [facility] Influenza Virus 2015-04-24 Completed [facility] Vaccine (3+ yrs) 00:00:00 [facility] Influenza Virus 2015-04-24 Completed [facility] Vaccine 00:00:00 [facility] Influenza Virus 2015-04-24 Completed [facility] Vaccine (3+ yrs) 00:00:00 [facility] Influenza Virus 2015-04-24 Completed [facility] Vaccine 00:00:00 [facility] Influenza Virus 2015-04-24 Completed [facility] Vaccine (3+ yrs) 00:00:00 [facility] Influenza Virus 2015-04-24 Completed [facility] Vaccine 00:00:00 [facility] Influenza Virus 2015-04-24 Completed [facility] Vaccine (3+ yrs) 00:00:00 [facility] Influenza Virus 2015-04-24 Completed [facility] Vaccine 00:00:00 [facility] Influenza Virus 2015-04-24 Completed [facility] Vaccine (3+ yrs) 00:00:00 [facility] Influenza Virus 2015-04-24 Completed [facility] Vaccine 00:00:00 [facility] Influenza Virus 2015-04-24 Completed [facility] Vaccine (3+ yrs) 00:00:00 [facility] Influenza Virus 2015-04-24 Completed [facility] Vaccine 00:00:00 [facility] Influenza Virus 2015-04-24 Completed [facility] Vaccine (3+ yrs) 00:00:00 [facility] Influenza Virus 2015-04-24 Completed [facility] Vaccine 00:00:00 [facility] Influenza Virus 2015-04-24 Completed [facility] Vaccine (3+ yrs) 00:00:00 [facility] Influenza Virus 2015-04-24 Completed [facility] Vaccine 00:00:00 [facility] Influenza Virus 2015-04-24 Completed [facility] Vaccine (3+ yrs) 00:00:00 [facility] Influenza Virus 2015-04-24 Completed [facility] Vaccine 00:00:00 [facility] Influenza Virus 2015-04-24 Completed [facility] Vaccine (3+ yrs) 00:00:00 [facility] Influenza Virus 2015-04-24 Completed [facility] Vaccine 00:00:00 [facility] Influenza Virus 2015-04-24 Completed [facility] Vaccine (3+ yrs) 00:00:00 [facility] Influenza Virus 2015-04-24 Completed [facility] Vaccine 00:00:00 [facility] Influenza Virus 2015-04-24 Completed [facility] Vaccine (3+ yrs) 00:00:00 [facility] Influenza Virus 2015-04-24 Completed [facility] Vaccine 00:00:00 [facility] Influenza Virus 2015-04-24 Completed [facility] Vaccine (3+ yrs) 00:00:00 [facility] Influenza Virus 2015-04-24 Completed [facility] Vaccine 00:00:00 [facility] Influenza Virus 2015-04-24 Completed [facility] Vaccine (3+ yrs) 00:00:00 [facility] Influenza Virus 2015-04-24 Completed [facility] Vaccine 00:00:00 [facility] Influenza Virus 2015-04-24 Completed [facility] Vaccine (3+ yrs) 00:00:00 [facility] Influenza Virus 2015-04-24 Completed [facility] Vaccine 00:00:00 [facility] Influenza Virus 2015-04-24 Completed [facility] Vaccine (3+ yrs) 00:00:00 [facility] Influenza Virus 2015-04-24 Completed [facility] Vaccine 00:00:00 [facility] Influenza Virus 2015-04-24 Completed [facility] Vaccine (3+ yrs) 00:00:00 [facility] Influenza Virus 2015-04-24 Completed [facility] Vaccine 00:00:00 [facility] Influenza Virus 2015-04-24 Completed [facility] Vaccine (3+ yrs) 00:00:00 [facility] Influenza Virus 2015-04-24 Completed [facility] Vaccine 00:00:00 [facility] Influenza Virus 2015-04-24 Completed [facility] Vaccine (3+ yrs) 00:00:00 [facility] Influenza Virus 2015-04-24 Completed [facility] Vaccine 00:00:00 [facility] Influenza Virus 2015-04-24 Completed [facility] Vaccine (3+ yrs) 00:00:00 [facility] Influenza Virus 2015-04-24 Completed [facility] Vaccine 00:00:00 [facility] Influenza Virus 2015-04-24 Completed [facility] Vaccine (3+ yrs) 00:00:00 [facility] Influenza Virus 2015-04-24 Completed [facility] Vaccine 00:00:00 [facility] Influenza Virus 2015-04-24 Completed [facility] Vaccine (3+ yrs) 00:00:00 [facility] Influenza Virus 2015-04-24 Completed [facility] Vaccine 00:00:00 [facility] Influenza Virus 2015-04-24 Completed [facility] Vaccine (3+ yrs) 00:00:00 [facility] Influenza Virus 2015-04-24 Completed [facility] Vaccine 00:00:00 [facility] Influenza Virus 2015-04-24 Completed [facility] Vaccine (3+ yrs) 00:00:00 [facility] Influenza Virus 2015-04-24 Completed [facility] Vaccine 00:00:00 [facility] Influenza Virus 2015-04-24 Completed [facility] Vaccine (3+ yrs) 00:00:00 [facility] Influenza Virus 2015-04-24 Completed [facility] Vaccine 00:00:00 [facility] Influenza Virus 2015-04-24 Completed [facility] Vaccine (3+ yrs) 00:00:00 [facility] Influenza Virus 2015-04-24 Completed [facility] Vaccine 00:00:00 [facility] Influenza Virus 2015-04-24 Completed [facility] Vaccine (3+ yrs) 00:00:00 [facility] Influenza Virus 2015-04-24 Completed [facility] Vaccine 00:00:00 [facility] Influenza Virus 2015-04-24 Completed [facility] Vaccine (3+ yrs) 00:00:00 [facility] Influenza Virus 2015-04-24 Completed [facility] Vaccine 00:00:00 [facility] Influenza Virus 2015-04-24 Completed [facility] Vaccine (3+ yrs) 00:00:00 [facility] Influenza Virus 2015-04-24 Completed [facility] Vaccine 00:00:00 [facility] Influenza Virus 2015-04-24 Completed [facility] Vaccine (3+ yrs) 00:00:00 [facility] Influenza Virus 2015-04-24 Completed [facility] Vaccine 00:00:00 [facility] Influenza Virus 2015-04-24 Completed [facility] Vaccine (3+ yrs) 00:00:00 [facility] Influenza Virus 2015-04-24 Completed [facility] Vaccine 00:00:00 [facility] Influenza Virus 2014-03-30 Completed [facility] Vaccine 00:00:00 [facility] Influenza Virus 2014-03-30 Completed [facility] Vaccine 00:00:00 [facility] Influenza Virus 2014-03-30 Completed [facility] Vaccine 00:00:00 [facility] Influenza Virus 2014-03-30 Completed [facility] Vaccine 00:00:00 [facility] Influenza Virus 2014-03-30 Completed [facility] Vaccine 00:00:00 [facility] Influenza Virus 2014-03-30 Completed [facility] Vaccine 00:00:00 [facility] Influenza Virus 2014-03-30 Completed [facility] Vaccine 00:00:00 [facility] Influenza Virus 2014-03-30 Completed [facility] Vaccine 00:00:00 [facility] Influenza Virus 2014-03-30 Completed [facility] Vaccine 00:00:00 [facility] Influenza Virus 2014-03-30 Completed [facility] Vaccine 00:00:00 [facility] Influenza Virus 2014-03-30 Completed [facility] Vaccine 00:00:00 [facility] Influenza Virus 2014-03-30 Completed [facility] Vaccine 00:00:00 [facility] Influenza Virus 2014-03-30 Completed [facility] Vaccine 00:00:00 [facility] Influenza Virus 2014-03-30 Completed [facility] Vaccine 00:00:00 [facility] Influenza Virus 2014-03-30 Completed [facility] Vaccine 00:00:00 [facility] Influenza Virus 2014-03-30 Completed [facility] Vaccine 00:00:00 [facility] Influenza Virus 2014-03-30 Completed [facility] Vaccine 00:00:00 [facility] Influenza Virus 2014-03-30 Completed [facility] Vaccine 00:00:00 [facility] Influenza Virus 2014-03-30 Completed [facility] Vaccine 00:00:00 [facility] Influenza Virus 2014-03-30 Completed [facility] Vaccine 00:00:00 [facility] Influenza Virus 2014-03-30 Completed [facility] Vaccine 00:00:00 [facility] Influenza Virus 2014-03-30 Completed [facility] Vaccine 00:00:00 [facility] Influenza Virus 2014-03-30 Completed [facility] Vaccine 00:00:00 [facility] Influenza Virus 2014-03-30 Completed [facility] Vaccine 00:00:00 [facility] Influenza Virus 2014-03-30 Completed [facility] Vaccine 00:00:00 [facility] Influenza Virus 2014-03-30 Completed [facility] Vaccine 00:00:00 [facility] Influenza Virus 2014-03-30 Completed [facility] Vaccine 00:00:00 [facility] Influenza Virus 2014-03-30 Completed [facility] Vaccine 00:00:00 [facility] Influenza Virus 2014-03-30 Completed [facility] Vaccine 00:00:00 [facility] Influenza Virus 2014-03-30 Completed [facility] Vaccine 00:00:00 [facility] Influenza Virus 2014-03-30 Completed [facility] Vaccine 00:00:00 [facility] Influenza Virus 2014-03-30 Completed [facility] Vaccine 00:00:00 [facility] Influenza Virus 2014-03-30 Completed [facility] Vaccine 00:00:00 [facility] Influenza Virus 2014-03-30 Completed [facility] Vaccine 00:00:00 [facility] Influenza Virus 2014-03-30 Completed [facility] Vaccine 00:00:00 [facility] Influenza Virus 2014-03-30 Completed [facility] Vaccine 00:00:00 [facility] Influenza Virus 2014-03-30 Completed [facility] Vaccine 00:00:00 [facility] Influenza Virus 2014-03-30 Completed [facility] Vaccine 00:00:00 [facility] Influenza Virus 2014-03-30 Completed [facility] Vaccine 00:00:00 [facility] Influenza Virus 2014-03-30 Completed [facility] Vaccine 00:00:00 [facility] Influenza Virus 2014-03-30 Completed [facility] Vaccine 00:00:00 [facility] Influenza Virus 2014-03-30 Completed [facility] Vaccine 00:00:00 [facility] Influenza Virus 2014-03-30 Completed [facility] Vaccine 00:00:00 [facility] Influenza Virus 2014-03-30 Completed [facility] Vaccine 00:00:00 [facility] Influenza Virus 2014-03-30 Completed [facility] Vaccine 00:00:00 [facility] Influenza Virus 2014-03-30 Completed [facility] Vaccine 00:00:00 [facility] Influenza Virus 2014-03-30 Completed [facility] Vaccine 00:00:00 [facility] Influenza Virus 2014-03-30 Completed [facility] Vaccine 00:00:00 [facility] Influenza Virus 2014-03-30 Completed [facility] Vaccine 00:00:00 [facility] Influenza Virus 2014-03-30 Completed [facility] Vaccine 00:00:00 [facility] Influenza Virus 2014-03-30 Completed [facility] Vaccine 00:00:00 [facility] Influenza Virus 2014-03-30 Completed [facility] Vaccine 00:00:00 [facility] Influenza Virus 2014-03-30 Completed [facility] Vaccine 00:00:00 [facility] Influenza Virus 2014-03-30 Completed [facility] Vaccine 00:00:00 [facility] Influenza Virus 2014-03-30 Completed [facility] Vaccine 00:00:00 [facility] Influenza Virus 2014-03-30 Completed [facility] Vaccine 00:00:00 [facility] Influenza Virus 2014-03-30 Completed [facility] Vaccine 00:00:00 [facility] Influenza Virus 2014-03-30 Completed [facility] Vaccine 00:00:00 [facility] Influenza Virus 2014-03-30 Completed [facility] Vaccine 00:00:00 [facility] Influenza Virus 2014-03-30 Completed [facility] Vaccine 00:00:00 [facility] Influenza Virus 2014-03-30 Completed [facility] Vaccine 00:00:00 [facility] Influenza Virus 2014-03-30 Completed [facility] Vaccine 00:00:00 [facility] Influenza Virus 2014-03-30 Completed [facility] Vaccine 00:00:00 [facility] Influenza Virus 2014-03-30 Completed [facility] Vaccine 00:00:00 [facility] Influenza Virus 2014-03-30 Completed [facility] Vaccine 00:00:00 [facility] Influenza Virus 2014-03-30 Completed [facility] Vaccine 00:00:00 [facility] Influenza Virus 2014-03-30 Completed [facility] Vaccine 00:00:00 [facility] Influenza Virus 2014-03-30 Completed [facility] Vaccine 00:00:00 [facility] Influenza Virus 2014-03-30 Completed [facility] Vaccine 00:00:00 [facility] Influenza Virus 2014-03-30 Completed [facility] Vaccine 00:00:00 [facility] Influenza Virus 2014-03-30 Completed [facility] Vaccine 00:00:00 [facility] Influenza Virus 2014-03-30 Completed [facility] Vaccine 00:00:00 [facility] Influenza Virus 2014-03-30 Completed [facility] Vaccine 00:00:00 [facility] Influenza Virus 2014-03-30 Completed [facility] Vaccine 00:00:00 [facility] Influenza Virus 2014-03-30 Completed [facility] Vaccine 00:00:00 [facility] Influenza Virus 2014-03-30 Completed [facility] Vaccine 00:00:00 [facility] Influenza Virus 2014-03-30 Completed [facility] Vaccine 00:00:00 [facility] Influenza Virus 2014-03-30 Completed [facility] Vaccine 00:00:00 [facility] Influenza Virus 2014-03-30 Completed [facility] Vaccine 00:00:00 [facility] Influenza Virus 2014-03-30 Completed [facility] Vaccine 00:00:00 [facility] Influenza Virus 2014-03-30 Completed [facility] Vaccine 00:00:00 [facility] Influenza Virus 2014-03-30 Completed [facility] Vaccine 00:00:00 [facility] Influenza Virus 2014-03-30 Completed [facility] Vaccine 00:00:00 [facility] Influenza Virus 2013-05-03 Completed [facility] Vaccine 00:00:00 [facility] Influenza Virus 2013-05-03 Completed [facility] Vaccine 00:00:00 [facility] Influenza Virus 2013-05-03 Completed [facility] Vaccine 00:00:00 [facility] Influenza Virus 2013-05-03 Completed [facility] Vaccine 00:00:00 [facility] Influenza Virus 2013-05-03 Completed [facility] Vaccine 00:00:00 [facility] Influenza Virus 2013-05-03 Completed [facility] Vaccine 00:00:00 [facility] Influenza Virus 2013-05-03 Completed [facility] Vaccine 00:00:00 [facility] Influenza Virus 2013-05-03 Completed [facility] Vaccine 00:00:00 [facility] Influenza Virus 2013-05-03 Completed [facility] Vaccine 00:00:00 [facility] Influenza Virus 2013-05-03 Completed [facility] Vaccine 00:00:00 [facility] Influenza Virus 2013-05-03 Completed [facility] Vaccine 00:00:00 [facility] Influenza Virus 2013-05-03 Completed [facility] Vaccine 00:00:00 [facility] Influenza Virus 2013-05-03 Completed [facility] Vaccine 00:00:00 [facility] Influenza Virus 2013-05-03 Completed [facility] Vaccine 00:00:00 [facility] Influenza Virus 2013-05-03 Completed [facility] Vaccine 00:00:00 [facility] Influenza Virus 2013-05-03 Completed [facility] Vaccine 00:00:00 [facility] Influenza Virus 2013-05-03 Completed [facility] Vaccine 00:00:00 [facility] Influenza Virus 2013-05-03 Completed [facility] Vaccine 00:00:00 [facility] Influenza Virus 2013-05-03 Completed [facility] Vaccine 00:00:00 [facility] Influenza Virus 2013-05-03 Completed [facility] Vaccine 00:00:00 [facility] Influenza Virus 2013-05-03 Completed [facility] Vaccine 00:00:00 [facility] Influenza Virus 2013-05-03 Completed [facility] Vaccine 00:00:00 [facility] Influenza Virus 2013-05-03 Completed [facility] Vaccine 00:00:00 [facility] Influenza Virus 2013-05-03 Completed [facility] Vaccine 00:00:00 [facility] Influenza Virus 2013-05-03 Completed [facility] Vaccine 00:00:00 [facility] Influenza Virus 2013-05-03 Completed [facility] Vaccine 00:00:00 [facility] Influenza Virus 2013-05-03 Completed [facility] Vaccine 00:00:00 [facility] Influenza Virus 2013-05-03 Completed [facility] Vaccine 00:00:00 [facility] Influenza Virus 2013-05-03 Completed [facility] Vaccine 00:00:00 [facility] Influenza Virus 2013-05-03 Completed [facility] Vaccine 00:00:00 [facility] Influenza Virus 2013-05-03 Completed [facility] Vaccine 00:00:00 [facility] Influenza Virus 2013-05-03 Completed [facility] Vaccine 00:00:00 [facility] Influenza Virus 2013-05-03 Completed [facility] Vaccine 00:00:00 [facility] Influenza Virus 2013-05-03 Completed [facility] Vaccine 00:00:00 [facility] Influenza Virus 2013-05-03 Completed [facility] Vaccine 00:00:00 [facility] Influenza Virus 2013-05-03 Completed [facility] Vaccine 00:00:00 [facility] Influenza Virus 2013-05-03 Completed [facility] Vaccine 00:00:00 [facility] Influenza Virus 2013-05-03 Completed [facility] Vaccine 00:00:00 [facility] Influenza Virus 2013-05-03 Completed [facility] Vaccine 00:00:00 [facility] Influenza Virus 2013-05-03 Completed [facility] Vaccine 00:00:00 [facility] Influenza Virus 2013-05-03 Completed [facility] Vaccine 00:00:00 [facility] Influenza Virus 2013-05-03 Completed [facility] Vaccine 00:00:00 [facility] Influenza Virus 2013-05-03 Completed [facility] Vaccine 00:00:00 [facility] Influenza Virus 2013-05-03 Completed [facility] Vaccine 00:00:00 [facility] Influenza Virus 2013-05-03 Completed [facility] Vaccine 00:00:00 [facility] Influenza Virus 2013-05-03 Completed [facility] Vaccine 00:00:00 [facility] Influenza Virus 2013-05-03 Completed [facility] Vaccine 00:00:00 [facility] Influenza Virus 2013-05-03 Completed [facility] Vaccine 00:00:00 [facility] Influenza Virus 2013-05-03 Completed [facility] Vaccine 00:00:00 [facility] Influenza Virus 2013-05-03 Completed [facility] Vaccine 00:00:00 [facility] Influenza Virus 2013-05-03 Completed [facility] Vaccine 00:00:00 [facility] Influenza Virus 2013-05-03 Completed [facility] Vaccine 00:00:00 [facility] Influenza Virus 2013-05-03 Completed [facility] Vaccine 00:00:00 [facility] Influenza Virus 2013-05-03 Completed [facility] Vaccine 00:00:00 [facility] Influenza Virus 2013-05-03 Completed [facility] Vaccine 00:00:00 [facility] Influenza Virus 2013-05-03 Completed [facility] Vaccine 00:00:00 [facility] Influenza Virus 2013-05-03 Completed [facility] Vaccine 00:00:00 [facility] Influenza Virus 2013-05-03 Completed [facility] Vaccine 00:00:00 [facility] Influenza Virus 2013-05-03 Completed [facility] Vaccine 00:00:00 [facility] Influenza Virus 2013-05-03 Completed [facility] Vaccine 00:00:00 [facility] Influenza Virus 2013-05-03 Completed [facility] Vaccine 00:00:00 [facility] Influenza Virus 2013-05-03 Completed [facility] Vaccine 00:00:00 [facility] Influenza Virus 2013-05-03 Completed [facility] Vaccine 00:00:00 [facility] Influenza Virus 2013-05-03 Completed [facility] Vaccine 00:00:00 [facility] Influenza Virus 2013-05-03 Completed [facility] Vaccine 00:00:00 [facility] Influenza Virus 2013-05-03 Completed [facility] Vaccine 00:00:00 [facility] Influenza Virus 2013-05-03 Completed [facility] Vaccine 00:00:00 [facility] Influenza Virus 2013-05-03 Completed [facility] Vaccine 00:00:00 [facility] Influenza Virus 2013-05-03 Completed [facility] Vaccine 00:00:00 [facility] Influenza Virus 2013-05-03 Completed [facility] Vaccine 00:00:00 [facility] Influenza Virus 2013-05-03 Completed [facility] Vaccine 00:00:00 [facility] Influenza Virus 2013-05-03 Completed [facility] Vaccine 00:00:00 [facility] Influenza Virus 2013-05-03 Completed [facility] Vaccine 00:00:00 [facility] Influenza Virus 2013-05-03 Completed [facility] Vaccine 00:00:00 [facility] Influenza Virus 2013-05-03 Completed [facility] Vaccine 00:00:00 [facility] Influenza Virus 2013-05-03 Completed [facility] Vaccine 00:00:00 [facility] Influenza Virus 2013-05-03 Completed [facility] Vaccine 00:00:00 [facility] Influenza Virus 2013-05-03 Completed [facility] Vaccine 00:00:00 [facility] Influenza Virus 2013-05-03 Completed [facility] Vaccine 00:00:00 [facility] Influenza Virus 2013-05-03 Completed [facility] Vaccine 00:00:00 [facility] Influenza Virus 2013-05-03 Completed [facility] Vaccine 00:00:00 [facility] Influenza Virus 2013-05-03 Completed [facility] Vaccine 00:00:00 [facility] Influenza Virus 2013-05-03 Completed [facility] Vaccine 00:00:00 [facility] Vital Signs Vital Name Observation Time Observation Value Comments Source Systolic blood 2023-03-19 13:56:41 115 mm[Hg] [facility] Diastolic blood 2023-03-19 13:56:41 74 mm[Hg] [facility] Heart rate 2023-03-19 12:58:00 64 /min [facility] Body temperature 2023-03-19 12:58:00 36.39 Dariana [facility] Respiratory rate 2023-03-19 12:58:00 20 /min [facility] Oxygen saturation in 2023-03-19 12:58:00 100 /min [facility] by [facility] Pulse oximetry Branch Systolic blood 2023-02-22 01:51:00 143 mm[Hg] [facility] Diastolic blood 2023-02-22 01:51:00 76 mm[Hg] [facility] Heart rate 2023-02-22 01:49:00 80 /min [facility] Body temperature 2023-02-22 01:49:00 37.22 Dariana [facility] Respiratory rate 2023-02-22 01:49:00 12 /min [facility] Body height 2023-02-22 01:49:00 175.3 cm [facility] Body weight 2023-02-22 01:49:00 122.018 kg [facility] BMI 2023-02-22 01:49:00 39.72 kg/m2 [facility] Oxygen saturation in 2023-02-22 01:49:00 96 /min [facility] [place] Idomoo james Pulse oximetry Branch Systolic blood 2023-02-16 18:57:00 128 mm[Hg] [facility]iver [facility] Diastolic blood 2023-02-16 18:57:00 80 mm[Hg] Unive rsity of [facility] Heart rate 2023-02-16 18:57:00 87 /min [facility] Respiratory rate 2023-02-16 18:57:00 18 /min [facility] Body height 2023-02-16 18:57:00 175.3 cm [facility] Body weight 2023-02-16 18:57:00 121.882 kg [facility] BMI 2023-02-16 18:57:00 39.68 kg/m2 [facility] Oxygen saturation in 2023-02-16 18:57:00 95 /min University of Arterial blood by [facility] james Pulse oximetry Branch Systolic blood 2022-12-15 18:24:00 124 mm[Hg] [facility] Diastolic blood 2022-12-15 18:24:00 79 mm[Hg] Unive rs[facility] Heart rate 2022-12-15 18:24:00 74 /min [facility] Body temperature 2022-12-15 18:24:00 36.72 Dariana [facility] Body height 2022-12-15 18:24:00 175.3 cm [facility] Body weight 2022-12-15 18:24:00 121.564 kg [facility] BMI 2022-12-15 18:24:00 39.58 kg/m2 [facility] Oxygen saturation in 2022-12-15 18:24:00 97 /min [facility] of Arterial blood by [facility] Pulse oximetry Branch Systolic blood 2022-12-09 14:52:00 125 mm[Hg] [facility] Diastolic blood 2022-12-09 14:52:00 80 mm[Hg] Unive [facility] Heart rate 2022-12-09 14:52:00 63 /min [facility] Respiratory rate 2022-12-09 14:52:00 12 /min [facility] Body height 2022-12-09 14:52:00 175.3 cm [facility] Body weight 2022-12-09 14:52:00 121.564 kg [facility] BMI 2022-12-09 14:52:00 39.58 kg/m2 [facility] Oxygen saturation in 2022-12-09 14:52:00 97 /min [facility] Arterial blood by [facility] james Pulse oximetry Branch Systolic blood 2022-11-13 19:39:00 129 mm[Hg] [facility] Diastolic blood 2022-11-13 19:39:00 87 mm[Hg] [facility] Heart rate 2022-11-13 19:39:00 79 /min [facility] Body height 2022-11-13 19:33:00 175.3 cm [facility] Body weight 2022-11-13 19:33:00 121.564 kg [facility] BMI 2022-11-13 19:33:00 39.58 kg/m2 [facility] Oxygen saturation in 2022-11-13 19:33:00 95 /min [facility] Arterial blood by [facility] Pulse oximetry Branch Systolic blood 2022-11-04 18:21:00 122 mm[Hg] [facility] Diastolic blood 2022-11-04 18:21:00 85 mm[Hg] [facility] Heart rate 2022-11-04 18:21:00 67 /min [facility] Body temperature 2022-11-04 18:21:00 36.94 Dariana [facility] Respiratory rate 2022-11-04 18:21:00 17 /min [facility] Body height 2022-11-04 18:21:00 175.3 cm [facility] Body weight 2022-11-04 18:21:00 121.246 kg [facility] BMI 2022-11-04 18:21:00 39.47 kg/m2 [facility] Oxygen saturation in 2022-11-04 18:21:00 96 /min [facility] Arterial blood by [facility] Pulse oximetry Branch Systolic blood 2022-10-16 19:26:00 116 mm[Hg] [facility] Diastolic blood 2022-10-16 19:26:00 78 mm[Hg] [facility] Heart rate 2022-10-16 19:26:00 85 /min [facility] Body temperature 2022-10-16 19:26:00 36.61 Dariana [facility] Body height 2022-10-16 19:26:00 175.3 cm [facility] Body weight 2022-10-16 19:26:00 122.925 kg [facility] BMI 2022-10-16 19:26:00 40.02 kg/m2 [facility] Oxygen saturation in 2022-10-16 19:26:00 96 /min [facility] [place] [facility] P[facility] Systolic blood 2022-09-09 20:33:00 115 mm[Hg] [facility] Diastolic blood 2022-09-09 20:33:00 61 mm[Hg] [facility] Heart rate 2022-09-09 20:33:00 90 /min [facility] Body weight 2022-09-09 20:33:00 123.469 kg [facility] BMI 2022-09-09 20:33:00 40.20 kg/m2 [facility] Oxygen saturation in 2022-09-09 20:33:00 97 /min [facility] [place] [facility] Pulse oximetry [facility] Systolic blood 2022-09-09 16:13:00 112 mm[Hg] [facility] Diastolic blood 2022-09-09 16:13:00 71 mm[Hg] [facility] Heart rate 2022-09-09 16:13:00 76 /min [facility] Respiratory rate 2022-09-09 16:13:00 12 /min [facility] Body height 2022-09-09 16:13:00 175.3 cm [facility] Body weight 2022-09-09 16:13:00 125.193 kg [facility] BMI 2022-09-09 16:13:00 40.76 kg/m2 [facility] Oxygen saturation in 2022-09-09 16:13:00 98 /min [facility] [place] [facility] P[facility] oxim[facility] Systolic blood 2022-08-17 17:21:00 124 mm[Hg] [facility] Diastolic blood 2022-08-17 17:21:00 82 mm[Hg] [facility] Heart rate 2022-08-17 17:21:00 76 /min [facility] Body temperature 2022-08-17 17:21:00 36.67 Dariana [facility] Body height 2022-08-17 17:21:00 175.3 cm [facility] Body weight 2022-08-17 17:21:00 125.193 kg [facility] BMI 2022-08-17 17:21:00 40.76 kg/m2 [facility] Oxygen saturation in 2022-08-17 17:21:00 96 /min [facility] Arterial blood by [facility] Pulse oximetry Branch Systolic blood 2022-08-14 16:00:00 136 mm[Hg] [facility] Diastolic blood 2022-08-14 16:00:00 84 mm[Hg] [facility] Heart rate 2022-08-14 16:00:00 72 /min [facility] Respiratory rate 2022-08-14 16:00:00 16 /min [facility] Body temperature 2022-08-14 14:17:00 36.72 Dariana [facility] Body height 2022-08-14 14:17:00 175.3 cm [facility] Body weight 2022-08-14 14:17:00 122.471 kg [facility] BMI 2022-08-14 14:17:00 39.87 kg/m2 [facility] Oxygen saturation in 2022-08-14 14:17:00 99 /min [facility] [place] [facility] P[facility] Systolic blood 2022-08-12 21:06:00 121 mm[Hg] [facility] Diastolic blood 2022-08-12 21:06:00 75 mm[Hg] [facility] Heart rate 2022-08-12 21:06:00 74 /min [facility] Respiratory rate 2022-08-12 21:06:00 12 /min [facility] Body height 2022-08-12 21:06:00 175.3 cm [facility] Body weight 2022-08-12 21:06:00 123.378 kg [facility] BMI 2022-08-12 21:06:00 40.17 kg/m2 [facility] Oxygen saturation in 2022-08-12 21:06:00 98 /min [facility] Arterial blood by [facility] Pulse oximetry Branch Systolic blood 2022-07-15 21:37:00 132 mm[Hg] [facility] Diastolic blood 2022-07-15 21:37:00 85 mm[Hg] [facility] Heart rate 2022-07-15 21:32:00 90 /min [facility] Body height 2022-07-15 21:32:00 175.3 cm [facility] Body weight 2022-07-15 21:32:00 123.152 kg [facility] BMI 2022-07-15 21:32:00 40.09 kg/m2 [facility] Oxygen saturation in 2022-07-15 21:32:00 96 /min [facility] Arterial blood by [facility] Pulse oximetry Branch Body height 2022-07-06 16:04:00 175.3 cm [facility] Body weight 2022-07-06 16:04:00 122.471 kg [facility] BMI 2022-07-06 16:04:00 39.87 kg/m2 [facility] Systolic blood 2022-06-15 14:24:00 117 mm[Hg] [facility] Diastolic blood 2022-06-15 14:24:00 77 mm[Hg] [facility] Heart rate 2022-06-15 14:24:00 69 /min [facility] Body height 2022-06-15 14:24:00 175.3 cm [facility] Body weight 2022-06-15 14:24:00 123.378 kg [facility] BMI 2022-06-15 14:24:00 40.17 kg/m2 [facility] Oxygen saturation in 2022-06-15 14:24:00 96 /min [facility] [place] [facility] P[facility] Systolic blood 2022-05-15 15:30:00 111 mm[Hg] [facility] Diastolic blood 2022-05-15 15:30:00 74 mm[Hg] [facility] Heart rate 2022-05-15 15:30:00 82 /min [facility] Body height 2022-05-15 15:30:00 175.3 cm [facility] Body weight 2022-05-15 15:30:00 120.657 kg [facility] BMI 2022-05-15 15:30:00 39.28 kg/m2 [facility] Oxygen saturation in 2022-05-15 15:30:00 97 /min [facility] [place] [facility] P[facility] o[facility] Systolic blood 2022-04-15 18:30:00 124 mm[Hg] [facility] Diastolic blood 2022-04-15 18:30:00 84 mm[Hg] [facility] Heart rate 2022-04-15 18:30:00 78 /min [facility] Body temperature 2022-04-15 18:30:00 36.56 Dariana [facility] Body height 2022-04-15 18:30:00 175.3 cm [facility] Body weight 2022-04-15 18:30:00 120.203 kg [facility] BMI 2022-04-15 18:30:00 39.13 kg/m2 [facility] Oxygen saturation in 2022-04-15 18:30:00 96 /min [facility] [place] [facility] P[facility] o[facility] Branch Systolic blood 2022-03-31 18:19:00 132 mm[Hg] [facility] Diastolic blood 2022-03-31 18:19:00 86 mm[Hg] [facility] Heart rate 2022-03-31 18:19:00 76 /min [facility] Body height 2022-03-31 18:19:00 175.3 cm [facility] Body weight 2022-03-31 18:19:00 120.974 kg [facility] BMI 2022-03-31 18:19:00 39.38 kg/m2 [facility] Oxygen saturation in 2022-03-31 18:19:00 98 /min [facility] blood by [facility] Pulse oximetry Branch Procedures Procedure Date / Time Performed Performing Clinician [facility] e ASSIGNMENT OF BENEFITS 2023-03-19 14:11:57 Doctor Unassigned, No [facility] Name [facility] XR CHEST 2 VW 2023-03-19 13:45:21 Rd, [facility] LIPASE 2023-03-19 13:32:[address], [facility] TROPONIN I 2023-03-19 13:32:00 Rd, [facility] HEPATIC FUNCTION PANEL 2023-03-19 13:32:00 Rd, [facility] ([id number]) [facility] (ALB,T.PRO,BILI T,BU/BC,ALT,AST,ALK PHOS) BASIC METABOLIC PANEL 2023-03-19 13:[facility] ([facility], K, CL, CO2, Medical Branch GLUCOSE, BUN, CREATININE, CA) CBC WITH DIFF 2023-03-19 13:32:[address] [facility] N-TERMINAL PRO-BNP 2023-03-19 13:32:00 Rd, [facility] COVID-19 (ID NOW RAPID 2023-03-19 [facility] CONSENT/REFUSAL FOR 2023-03-19 12:52:52 Doctor Unassigned, No Un [facility] DIAGNOSIS AND Name [facility] TREATMENT POCT SARS-COV-2 2023-02-22 01:56:00 Enid Mcfarland [facility] [place] ANTIGEN (BINAX NOW) Medical Bran ch POCT MOLECULAR FLU 2023-02-22 01:53:00 Unknown, Attending [facility] POCT MOLECULAR STREP 2023-02-22 01:51:00 Unknown, Attending [facility] SLEEP STUDY DATA 2022-11-19 05:01:00 Doctor Unassigned, No [facility] REPORT Name [facility] PATIENT FINANCIAL 2022-10-16 19:17:12 Doctor Unassigned, No [facility] POLICY Name [facility] FL TIME OR 2022-08-14 15:46:17 Britton Yanez [facility] (NON-REPORTABLE) [facility] ASSIGNMENT OF BENEFITS 2022-05-21 14:24:22 Doctor Unassigned, No [facility] Name [facility] FLU VACC (), 2022-04-15 18:48:46 Remy Harp [facility] 6 MO-64 YRS, .5ML, IM, Medical B ranch QUAD (FLUCELVAX) Encounters Start End Encounter Admission Attending Care Care Encounter Source Date/Time Date/Time Type Type Clinicians Facility Department ID 2021-05-20 [facility] [id number] Univers 09:37:11 [facility] 2023-03-19 2023-03-[address], SHARIF [facility] ERT 1 [id number] Univers 08:00:00 10:31:00 SHARIF SULTANA [facility] 2023-03-19 2023[facility]03-[facility] [id number] Univers 08:00:00 10:31:00 Sharif [facility] [place] 350.1.13.10 [facility] 4.2.7.2.686 [facility] [id number] [facility] 084 Branch 2023-03-17 2023-03-17 Outpatient Oren [facility] [id number] Univers 08:00:00 08:00:00 REMY dhillon [facility] 2023-03-15 2023-03-15 Outpatient Oren [facility] [id number] Univers 14:00:00 14:00:00 REMY dhillon [facility] 2023-03-08 2023-03-08 Outpatient R [facility] [id number] Univers 14:00:00 14:00:00 JACKIE MCKEON kb of [facility] 2023-02-21 2023-02-21 Urgent Enid Mcfarland [facility] 1.2.840.114 1 [id number] Univers 20:40:00 21:00:00 Care Unknown, [facility] HEALTH 350.1.13.10 ity of [facility] 4.2.7.2.686 Geoff as KAVIN?BLEA [phone] [address] MEDICAL OFFICE BUILDING 2023-02-21 2023-02-21 Outpatient R [facility] [id number] Univers 20:40:00 20:40:00 ENID dhillon [facility] 2023-02-17 2023-02-17 [facility] 1.2.840.114 [id number] Univers 00:00:00 00:00:00 Cand HEALTH 350.1.13.10 [place] [id number] [address] OFFICE BUILDING 2023-02-16 2023-02-16 Outpatient R [facility] [id number] Univers 14:00:00 14:19:07 JACKIE MCKEON kb of [facility] 2023-02-16 2023-02-16 Office [facility] 1.2.840.114 [id number] Univers 14:00:00 14:19:07 Visit Cand [employer] 350.1.13.10 [place] [id number] [address] OFFICE BUILDING 2023-02-16 2023-02-16 Telephone [facility] 1.2.840.114 [id number] Univers 00:00:00 00:00:00 Cand HEALTH 350.1.13.10 [place] [id number] [address] OFFICE BUILDING 2023-01-06 2023-01-06 [facility] [id number] Univers 11:00:00 11:00:00 BRITTON dhillon [facility] 2022-12-23 2022-12-23 Patient Jackie Mckeon [facility] 1.2.840.114 [id number] Univers 00:00:00 00:00:00 Secure Ms Munira [employer] 350.1.13.10 [place] [id number] [facility] 084 [facility] 2022-12-15 2022-12-15 Outpatient [facility] [id number] Univers 13:30:00 13:42:43 REMY sandrakb [facility] 2022-12-15 2022-12-15 [facility] 1.2.840.114 [id number] Univers 13:30:00 13:42:43 Visit Remy [facility] 350.1.13.10 it [facility] 4.2.7.2.686 Geoff as KAVIN?BLEA [phone] Me arnel RICHMONDEY [address] [facility] 2022-12-10 2022-12-10 Ancillary Kaykay Merrill [facility] 1.2.840 .114 [id number] Univers 08:45:00 09:30:00 Visit Britton Yanez 350.1.13.10 [place] [id number] Me dicarslan NAL 179 [facility] 2022-12-10 2022-12-10 Outpatient R [facility] [id number] Univers 08:45:00 08:45:00 BRITTON dhillon [facility] 2022-12-09 2022-12-09 Ancillary Yany Abarca [facility] 1.2.840 .114 [id number] Univers 15:15:00 16:00:00 Visit Britton Yanez 350.1.13.10 [place] [id number] Me dicarslan NAL 179 [facility] 2022-12-09 2022-12-09 Outpatient [facility] [id number] Univers 10:00:00 10:39:25 BRITTON ity of [facility] 2022-12-09 2022-12-09 Office [facility] 1.2.840.114 [id number] Univers 10:00:00 10:39:25 Visit Britton LEYVA 350.1.13.10 [place]2.686 [place] [id number] [address] [facility] 2022-12-04 2022-12-04 Ancillary Kaykay Merrill [facility] 1.2.840 .114 [id number] Univers 09:30:00 10:24:02 Visit Larisa Richards 350.1.13.10 it[place] of [place].2.[place] [id number] Co dical NAL 179 [facility] 2022-12-02 2022-12-02 Ancillary Renny Merrill Ernst [facility] 1.2.840. 114 [id number] Univers 15:15:00 16:00:00 Visit Larisa Richards 350.1.13.10 [place] of [place] [id number] Co dical NAL 179 Branch [facility] 2022-11-26 2022-11-26 Case Sydni [facility] 1.2.840.114 [id number] Univers 00:00:00 00:00:00 Management Sarah ROSADO 350.1.13.10 ity of [place] 4[place]2.[place].2.[place] [id number] Co dical NAL 179 Branch [facility] 2022-11-24 2022-11-24 Patient Jackie Mckeon [facility] 1.2.840.114 [id number] Univers 00:00:00 00:00:00 Secure [facility] [place] 350.1.13.10 [place] [id number] [facility] 084 Branch OFFICE BUILDING 2022-11-24 2022-11-24 Telephone Katiuska [facility] 1.2.767.249 [id number] Univers 00:00:00 00:00:00 Remy HEALTH 350.1.13.10 it y of [place] 4.2.7.2.686 Geoff as KAVIN?BLEA [phone] Co dical KNEY 044 [facility] OFFICE [facility] 2022-11-24 2022-11-24 Telephone Jackie Mckeon [facility] 1.2.840.114 [id number] Univers 00:00:00 00:00:00 Candy HEALTH 350.1.13.10 [place] [id number] [facility] [address] [place] OFFICE [facility] 2022-11-19 2022-11-19 Ergonomic Specialist [facility] 1.2 .840.114 [id number] Univers 15:00:00 15:15:00 Visit Alireza Shipman 350.1.13. 10 ity [facility] 4.2.7.2.686 [place] [id number] [facility] [address] [place] 2022-11-19 2022-11-19 Outpatient R ALIREZA [facility] [id number] Univers 15:00:00 15:00:00 ALIREZA SHIPMAN ity of [facility] 2022-11-19 2022-11-19 Ancillary Sarah Troy [facility] 1.2. 840.114 [id number] Univers 13:45:00 14:30:00 Visit Larisa Richards 350.1.13.10 ity of [facility] 4.2.7.2.686 [place] [facility] [id number] Co dical NAL 179 [facility] 2022-11-19 2022-11-19 Orders Doctor MANDI 1.2.840.114 [id number] Univers 00:00:00 00:00:00 Only Unassigned, MAKENZIE 350.1.13.10 ity of [place] [facility] 4.2.7.2.686 Geoff as [id number] [facility] [address] [place] 2022-11-18 2022-11-18 Ancillary Renny Merrill [facility] 1.2.840. 114 [id number] Univers 09:30:00 09:59:39 Visit Larisa Richards 350.1.13.10 ity of [facility] 4.2.7.2.[place] [id number] Co dical NAL 179 [facility] 2022-11-13 2022-11-13 [facility] [id number] Univers 14:30:00 17:14:36 REMY ity of [facility] 2022-11-13 2022-11-13 Office Katiuska [facility] 1.2.840.114 [id number] Univers 14:30:00 17:14:36 Visit Remy BUSCH 350.1.13.10 it y of [facility] 4.2.7.2.686 Geoff as KAVIN?BLEA [id number] Co dicarslan LAY [address] [facility] 2022-11-12 2022-11-12 Ancillary Renny Merrill [facility] 1.2.840. 114 [id number] Univers 10:15:00 10:56:23 Visit Richards Larisa [place] 350.1.13.10 ity of [place] 4.2.7.2.[place] [id number] Co dical NAL 179 [facility] 2022-11-05 2022-11-05 Outpatient R [facility] [id number] Univers 13:45:00 14:32:29 LARISA dhillon [facility] 2022-11-05 2022-11-05 Ancillary Charity Rodriguez [facility] 1 .2.840.114 [id number] Univers 13:45:00 14:32:29 Visit Larisa Richards 350.1.13.10 ity of [facility] 4.2.7.2.[place] [id number] Co dical NAL 179 [facility] 2022-11-04 2022-11-04 Outpatient R [facility] [id number] Univers 13:30:00 13:49:05 JACKIE MCKEON it y of [facility] 2022-11-04 2022-11-04 Office Jackie Mckeon [facility] 1.2.840.114 [id number] Univers 13:30:00 13:49:05 Visit Munira BUSCH 350.1.13.10 it [place] [id number] [address] OFFICE BUILDING 2022-10-16 2022-10-16 Outpatient [facility] [id number] Univers 14:30:00 14:52:34 REMY dhillon [facility] 2022-10-16 2022-10-16 [facility] 1.2.840.114 [id number] Univers 14:30:00 14:52:34 Visit Remy [facility] 350.1.13.10 it y of [place] 4.2.7.2.686 Geoff as KAVIN?BLEA [id number] [address] OFFICE BUILDING 2022-10-16 2022-10-16 Orders Doctor MANDI 1.2.840.114 [id number] Univers 00:00:00 00:00:00 Only Unassigned, MAKENZIE 350.1.13.10 ity of [place] [facility] 4.2.7.2.686 Geoff as [id number] [facility] 009 Branch 2022-09-29 2022-09-29 [facility], [facility] .[id number] [id number] Univers 00:00:00 00:00:00 Kelvin Y HEALTH 350.1.13.10 i ty of [place].2.[place] [id number] [place] [id number] [place] 2022-09-28 2022-09-28 Outpatient [facility] [id number] Univers 13:00:00 13:00:00 BRITTON jacquie [facility] 2022-09-15 2022-09-15 Outpatient [facility] [id number] Univers 08:30:00 08:30:00 REMY dhillon [facility] 2022-09-09 2022-09-09 Office [facility] 1.2.840.114 [id number] Univers 14:30:00 15:03:40 Visit Remy BUSCH 350.1.13.10 it y of [place] 4.2.7.2.686 Geoff as KAVIN?BLEA [id number] Co arnel [address] MEDICAL OFFICE BUILDING 2022-09-09 2022-09-[address] [facility] 1.2.840.114 [id number] Univers 10:15:00 10:55:09 Visit Britton LEYVA 350.1.13.10 [place] [id number] [address] [facility] 2022-09-09 2022-09-09 Outpatient R [facility] [id number] Univers 10:15:00 10:55:09 BRITTON dhillon [facility] 2022-09-03 2022-09-03 [facility] [id number] Univers 13:00:00 13:00:00 REMY dhillon [facility] 2022-08-25 2022-08-[address] [facility] 1.2.434.697 [id number] Univers 00:00:00 00:00:00 Britton LEYVA 350.1.13.10 [place] [id number] [address] [facility] 2022-08-18 2022-08-[address] [facility] 1.2.474.198 [id number] Univers 00:00:00 00:00:00 Britton LEYVA 350.1.13.10 [place] [id number] [address] [facility] 2022-08-17 2022-08-17 Office [facility] 1.2.840.114 [id number] Univers 11:30:00 12:00:41 Visit Remy BUSCH 350.1.13.10 it y of [place] 4.2.7.2.686 Geoff as KAVIN?BLEA [id number] Co arnel [address] MEDICAL OFFICE BUILDING 2022-08-17 2022-08-17 Outpatient [facility] [id number] Univers 11:30:00 11:30:00 REMY dhillon [facility] 2022-08-17 2022-08-17 Telephone [facility] 1.2.127.305 [id number] Univers 00:00:00 00:00:00 [facility] 350.1.13.10 it y of [place] 4.2.7.2.686 Geoff as KAVIN?BLEA [phone] Co arnel LAY [address] [place] [address] MEDICAL OFFICE BUILDING 2022-08-14 2022-08-14 Outpatient R [facility] [id number] Univers 09:07:14 23:59:00 BRITTON ity of [facility] 2022-08-14 2022-08-14 [facility] 1.2.840.114 [id number] Univers 09:07:14 23:59:00 Encounter Britton [facility] 350.1.13.10 [place] [id number] [facility] [place] [address] [facility] 2022-08-14 2022-08-[address] [facility] 1.2.840.114 [id number] Univers 09:00:00 09:30:00 Visit Britton Sharp [facility] 350.1.13.10 [place] [id number] [facility] [address] [facility] 2022-08-13 2022-08-[address] [facility] 1.2.882.227 [id number] Univers 00:00:00 00:00:00 Britton Sharp [facility] 350.1.13.10 [place] [id number] [facility] [address] [facility] 2022-08-12 2022-08-[address] [facility] 1.2.840.114 [id number] Univers 16:00:00 16:00:00 Visit Britton Sharp [facility] 350.1.13.10 [place] [id number] [facility] AND [place] [address] [place] [facility] 2022-08-12 2022-08-12 Outpatient R [facility] [id number] Univers 16:00:00 15:49:06 BRITTON jacquie [facility] 2022-07-15 2022-07-15 [facility] [id number] Univers 15:30:00 16:01:06 REMY dhillon [facility] 2022-07-15 2022-07-15 Office [facility] 1.2.840.114 [id number] Univers 15:30:00 16:01:06 Visit Remy HEALTH 350.1.13.10 it y of [place] 4.2.7.2.686 Geoff as KAVIN?BLEA [id number] [address] OFFICE [facility] 2022-07-15 2022-07-15 Telephone Katiuska [facility] 1.2.601.647 [id number] Univers 00:00:00 00:00:00 Remy HEALTH 350.1.13.10 it y of [place] 4.2.7.2.686 Geoff as KAVIN?BLEA [id number] [address] OFFICE [facility] 2022-07-14 2022-07-14 Outpatient [facility] [id number] Univers 13:30:00 13:30:00 REMY dhillon [facility] 2022-07-07 2022-07-07 Telephone Kai Davidson [facility] 1.2.840.114 [id number] Univers 00:00:00 00:00:00 HEALTH 350.1.13.10 it [place] [id number] [address] OFFICE BUILDING 2022-07-06 2022-07-06 Office [facility] 1.2.840.114 [id number] Univers 09:45:00 10:00:00 Visit HEALTH 350.1.13.10 it [place] [id number] [address] OFFICE BUILDING 2022-07-06 2022-07-06 Outpatient R [facility] [id number] Univers 09:45:00 09:45:00 itkb [facility] 2022-06-15 2022-06-15 Outpatient [facility] [id number] Univers 08:30:00 08:49:58 REMY dhillon [facility] 2022-06-15 2022-06-15 Office Kaituska [facility] 1.2.840.114 [id number] Univers 08:30:00 08:49:58 Visit Remy BUSCH 350.1.13.10 it y of [place] 4.2.7.2.686 Geoff as KAVIN?BLEA [id number] [address] OFFICE [facility] 2022-06-08 2022-06-08 [facility]i [facility] 1.2.840.114 [id number] Univers 00:00:00 00:00:00 Joselito HEALTH 350.1.13.10 it y of [place] 4.2.7.2.686 Geoff as KAVIN?BLEA [id number] [address] OFFICE [facility] 2022-06-03 2022-06-03 Outpatient [facility] [id number] Univers 14:30:00 15:16:01 LARISA dhillon [facility] 2022-06-03 2022-06-03 Ancillary Garfield Kaykay Brian [facility] 1.2.840 .114 [id number] Univers 14:30:00 15:16:01 Visit Larisa iRchards 350.1.13.10 it[place] of [place] [id number] Co dical NAL 179 [facility] 2022-05-27 2022-05-27 Ancillary Kaykay Merrill [facility] 1.2.840 .114 [id number] Univers 14:30:00 15:29:21 Visit Larisa Richards 350.1.13.10 it[place] [id number] Co dical NAL 179 [facility] 2022-05-21 2022-05-21 Ancillary Garfield Kaykay K [facility] 1.2.840 .114 [id number] Univers 08:45:00 09:27:12 Visit Larisa Richards 350.1.13.10 ity of [place] [phone] Co dical NAL 179 [facility] 2022-05-21 2022-05-21 Orders Doctor MANDI 1.2.840.114 [id number] Univers 00:00:00 00:00:00 Only Unassigned, MAKENZIE 350.1.13.10 ity of [place] [facility] 4.2.7.2.686 Geoff as [id number] [address] 2022-05-15 2022-05-15 Outpatient [facility] [id number] Univers 10:30:00 11:04:40 REMY jacquie [facility] 2022-05-15 2022-05-15 Office Katiuska [facility] 1.2.840.114 [id number] Univers 10:30:00 11:04:40 Visit [facility] 350.1.13.10 it y of [place] 4.2.7.2.686 Geoff as KAVIN?BLEA [phone] Co dical KNEY 044 [facility] OFFICE [facility] 2022-05-14 2022-05-14 Ancillary Sarah Troy [facility] 1.2. 840.114 [id number] Univers 14:30:00 15:15:00 Visit Larisa Richards 350.1.13.10 ity [facility] [place] [phone] Co dical NAL 179 [facility] 2022-05-14 2022-05-14 Outpatient R [facility] [id number] Univers 14:30:00 14:30:00 LARISA ity of [facility] 2022-05-07 2022-05-07 Ancillary Sarah Troy [facility] 1.2. 840.114 [id number] Univers 14:30:00 15:15:00 Visit Larisa Richards 350.1.13.10 ity [facility] [place] [phone] Co dical NAL 179 [facility] 2022-04-23 2022-04-23 Ancillary Kaykay Merrill [facility] 1.2.840 .114 [id number] Univers 09:30:00 10:15:00 Visit Susie Larsia ROSADO 350.1.13.10 ity [facility] 4.2.7.2.[place] [id number] Co dical NAL 179 [facility] 2022-04-23 2022-04-23 Refill [facility] 1.2.840.114 [id number] Univers 00:00:00 00:00:00 Remy HEALTH 350.1.13.10 it y [facility] 4.2.7.2.686 Geoff as KAVIN?BLEA [id number] [address] OFFICE BUILDING 2022-04-17 2022-04-17 Outpatient [facility] [id number] Univers 09:30:00 09:30:00 REMY dhillon [facility] 2022-04-16 2022-04-16 Outpatient [facility] [id number] Univers 09:30:00 11:06:05 LARISA kb [facility] 2022-04-16 2022-04-16 Outpatient R [facility] [id number] Univers 09:30:00 11:06:05 [facility] 2022-04-16 2022-04-16 Ancillary Kaykay Merrill [facility] 1.2.840 .114 [id number] Univers 09:30:00 11:06:05 Visit Richards Larisa ROSADO 350.1.13.10 ity of [facility] 4.2.7.2.[place] [id number] [facility] 179 [facility] 2022-04-15 2022-04-15 Outpatient R [facility] [id number] Univers 13:30:00 13:57:30 REMY jacquie [facility] 2022-04-15 2022-04-15 Office [facility] 1.2.840.114 [id number] Univers 13:30:00 13:57:30 Visit Remy [facility] 350.1.13.10 it y [facility] 4.2.7.2.686 Geoff as KAVIN?BLEA [id number] [address] MEDICAL OFFICE [facility] 2022-04-09 2022-04-09 Ancillary Kaykay Merrill [facility] 1.2.840 .114 [id number] Univers 09:30:00 10:15:00 Visit Larisa Richards 350.1.13.10 ity of [facility] 4.2.7.2.[place] [phone] Co dical NAL 179 [facility] 2022-04-02 2022-04-02 Outpatient [facility] [id number] Univers 09:30:00 09:30:00 LARISA dhillon [facility] 2022-03-31 2022-03-31 Office [facility] 1.2.840.114 [id number] Univers 13:30:00 14:00:00 Visit Remy [facility] 350.1.13.10 it y of [place] 4.2.7.2.686 Geoff as KAVIN?BLEA [id number] [address] OFFICE [facility] 2022-03-31 2022-03-31 Outpatient [facility] [id number] Univers 13:30:00 13:30:00 REMY dhillon [facility] 2022-03-31 2022-03-31 Outpatient [facility] [id number] Univers 11:30:00 11:30:00 REMY dhillon [facility] 2022-03-26 2022-03-26 Ancillary Kaykay Merrill [facility] 1.2.840 .114 [id number] Univers 09:30:00 10:22:00 Visit Larisa Richards 350.1.13.10 ity of [facility] 4.2.7.2.[place] [phone] Co dicks NAL 179 [facility] 2022-03-24 2022-03-24 Orders Doctor RAYMOND 1.2.840.114 [id number] Univers 00:00:00 00:00:00 Only Unassigned, MAKENZIE 350.1.13.10 ity of [place] [facility] 4.2.7.2.686 Geoff as [phone] [address] 2022-03-19 2022-03-19 Ancillary Renny Merrill [facility] 1.2.840. 114 [id number] Univers 09:30:00 10:13:17 Visit Larisa Richards 350.1.13.10 ity of [facility] 4.2.[place].2.[place] [id number] Co dical CARLOS 179 [facility] 2022-03-16 2022-03-16 [facility], Ang - Db [facility] 1.2.840.1 14 [id number] Univers 09:00:00 09:15:00 Visit Remy Harp 350.1.13.10 ity of [place] 4.2.7.2.686 Geoff as KAVIN?BLEA [phone] Co dicarslan LAY 353 [facility] OFFICE [facility] 2022-03-16 2022-03-16 Office Katiuska [facility] 1.2.840.114 [id number] Univers 08:00:00 09:02:44 Visit Remy [facility] 350.1.13.10 it y of [place] 4.2.7.2.686 Geoff as KAVIN?BLEA [phone] Co arnel RICHMOND 044 [facility] OFFICE [facility] 2022-03-16 2022-03-16 [facility] [id number] Univers 08:00:00 09:02:44 REMY dhillon [facility] 2022-03-16 2022-03-16 Outpatient [facility] [id number] Univers 09:00:00 09:00:00 REMY dhillon [facility] 2022-03-16 2022-03-16 [facility] [id number] Univers 08:00:00 08:00:00 REMY dhillon [facility] 2022-03-12 2022-03-12 Outpatient R [facility] [id number] Univers 09:30:00 10:10:13 LARISA dhillon [facility] 2022-03-12 2022-03-12 Ancillary Sarah Troy [facility] 1.2. 840.114 [id number] Univers 09:30:00 10:10:13 Visit Larisa Richards 350.1.13.10 ity of [facility] 4.2.[place] [phone] Co dical NAL 179 [facility] 2022-03-05 2022-03-05 Ancillary Renny Merrill [facility] 1.2.840. 114 [id number] Univers 09:30:00 10:15:00 Visit Larisa Richards Alexander MIRSTONE 350.1.13.10 ity of [facility] 4.2.[place] [id number] Co dical NAL 179 [facility] 2022-02-26 2022-02-26 Ancillary Renny Merrill [facility] 1.2.840. 114 [id number] Univers 08:45:00 09:30:00 Visit RichardsLarisa 350.1.13.10 ity of [facility] 4.2.7.2.[place] [phone] Co dical [facility] 179 [facility] 2022-02-20 2022-02-20 Outpatient [facility] [id number] Univers 08:45:00 09:25:43 LARISA floreskb [facility] 2022-02-20 2022-02-20 Ancillary Charity Rodriguez [facility] 1 .2.840.114 [id number] Univers 08:45:00 09:25:43 Visit Susie Larisa ROSADO 350.1.13.10 ity of [facility] 4.2.7.2.[place] [phone] Co dical [address] 2022-02-20 2022-02-20 Outpatient [facility] [id number] Univers 08:45:00 08:45:00 LARISA ity [facility] 2022-02-10 2022-02-10 Telephone [facility] 1.2.178.365 [id number] Univers 00:00:00 00:00:00 Valeria A [employer] 350.1.13.10 i ty [facility] 4.2.7.2.686 Geoff as KAVIN?BLEA [phone] Co dicarslan [address] OFFICE BUILDING 2022-02-09 2022-02-09 Outpatient [facility] [id number] Univers 13:30:00 13:54:25 REMY kb [facility] 2022-02-09 2022-02-09 Office Katiuska [facility] 1.2.840.114 [id number] Univers 13:30:00 13:54:25 Visit Remy [facility] 350.1.13.10 it y of [place] 4.2.7.2.686 Geoff as KAVIN?BLEA [phone] Co arnel LAY 044 [facility] OFFICE BUILDING 2022-01-14 2022-01-14 [facility], Ang - [facility] 1.2.840.1 14 [id number] Univers 16:00:00 16:15:00 Visit Dhara Cintron [facility] 350.1.13.10 ity of [facility] 4.2.7.2.686 Geoff as KAVIN?BLEA [phone] Co arnel LAY 353 [facility] OFFICE [facility] 2022-01-14 2022-01-14 Outpatient R [facility] [id number] Univers 16:00:00 16:00:00 DHARA [facility] 2022-01-14 2022-01-14 Outpatient [facility] [id number] Univers 10:20:00 10:51:11 [facility] 2022-01-14 2022-01-14 Urgent [facility] 1.2.840.114 [id number] Univers 10:20:00 10:51:11 Care Dhara [facility] 350.1.13.10 it y of [place] 4.2.7.2.686 Geoff as KAVIN?BLEA [phone] Co arnel LAY 370 [facility] OFFICE BUILDING 2022-01-13 2022-01-13 Telephone Kai Davidson [facility] 1.2.840.114 [id number] Univers 00:00:00 00:00:00 HEALTH 350.1.13.10 it y of [place] 4[place]2.7.2.686 [place] [id number] [address] OFFICE BUILDING 2022-01-12 2022-01-12 Office Kai Davidson [facility] 1.2.840.114 [id number] Univers 14:00:00 14:15:00 Visit HEALTH 350.1.13.10 it [place] [id number] [address] OFFICE BUILDING 2022-01-12 2022-01-12 Outpatient R [facility] [id number] Univers 14:00:00 14:00:00 ity of [facility] 2022-01-05 2022-01-05 Outpatient [facility] [id number] Univers 14:30:00 14:54:41 REMY ity of [facility] 2022-01-05 2022-01-05 Office [facility] 1.2.840.114 [id number] Univers 14:30:00 14:54:41 Visit Remy [facility] 350.1.13.10 it y of [place] 4.2.7.2.686 Geoff as KAVIN?BLEA [phone] Co arnel RICHMONDEY 044 [facility] OFFICE BUILDING 2021-12-31 2021-12-31 Outpatient [facility] [id number] Univers 14:44:26 23:59:00 REMY itkb [facility] 2021-12-31 2021-12-31 [facility] 1.2.840.114 [id number] Univers 14:44:26 23:59:00 Encounter Remy HEALTH 350.1.13.10 [place] [phone] [facility] [address] ([facility]) 2021-12-10 2021-12-10 Ancillary Lindy Lopez [facility] 1.2.84 0.114 [id number] Univers 15:15:00 16:00:00 Visit Larisa Richards 350.1.13.10 it[place].2.[place] [phone] Co arnel GONZALEZ [address] [facility] 2021-12-10 2021-12-10 Outpatient [facility] [id number] Univers 15:15:00 15:15:00 LARISA ity [facility] 2021-12-10 2021-12-10 Outpatient R [facility] [id number] Univers 15:15:00 15:15:00 LARISA dhillon [facility] 2021-12-05 2021-12-05 Outpatient [facility] [id number] Univers 15:30:00 16:06:36 REMY dhillon [facility] 2021-12-05 2021-12-05 Office [facility] 1.2.840.114 [id number] Univers 15:30:00 16:06:36 Visit Remy HEALTH 350.1.13.10 it y of [place] 4.2.7.2.686 Geoff as KAVIN?BLEA [phone] [address] 2021-12-05 2021-12-05 Outpatient [facility] [id number] Univers 15:30:00 15:30:00 REMY dhillon [facility] 2021-12-04 2021-12-04 Ancillary Lindy Lopez [facility] 1.2.84 0.114 [id number] Univers 13:00:00 13:45:00 Visit Larisa Richards 350.1.13.10 ity [place] [phone] [facility] 179 [facility] 2021-12-04 2021-12-04 Wilder [facility] 1.2.840.114 [id number] Univers 00:00:00 00:00:00 Joselito HEALTH 350.1.13.10 it y of [place] 4.2.7.2.686 Geoff as KAVIN?BLEA [phone] Co dic[address] OFFICE [facility] 2021-12-01 2021-12-01 Ancillary Lindy Lopez [facility] 1.2.84 0.114 [id number] Univers 14:30:00 15:15:00 Visit Larisa Richards 350.1.13.10 ity [place].2.[place] [phone] Co dical NAL 179 [facility] 2021-11-24 2021-11-24 Ancillary Lindy Lopez [facility] 1.2.84 0.114 [id number] Univers 14:30:00 15:15:00 Visit Larisa Richards 350.1.13.10 ity of [facility] 4.2.7.2.[place] [phone] [facility] 179 [facility] 2021-11-24 2021-11-24 Orders Doctor MANDI 1.2.840.114 [id number] Univers 00:00:00 00:00:00 Only Unassigned, MAKENZIE 350.1.13.10 ity of [place] [facility] 4.2.7.2.686 Geoff as [phone] [address] 2021-11-19 2021-11-19 Refill [facility] 1.2.840.114 [id number] Univers 00:00:00 00:00:00 [facility] 350.1.13.10 it y of [place] 4.2.7.2.686 Geoff as KAVIN?BLEA [phone] [facility] 044 [facility] OFFICE [facility] 2021-11-17 2021-11-17 Ancillary Lindy Lopez [facility] 1.2.84 0.114 [id number] Univers 08:45:00 09:30:00 Visit Larisa Richards 350.1.13.10 ity of [facility] 4.2.7.2.[place] [phone] [facility] 179 [facility] 2021-11-07 2021-11-07 Orders Doctor MANDI 1.2.840.114 [id number] Univers 00:00:00 00:00:00 Only Unassigned, MAKENZIE 350.1.13.10 ity of [place] [facility] 4.2.7.2.686 Geoff as [phone] [address] 2021-11-05 2021-11-05 Outpatient [facility] [id number] Univers 16:00:00 16:47:07 REMY dhillon of [facility] 2021-11-05 2021-11-05 Office Katiuska [facility] 1.2.840.114 [id number] Univers 16:00:00 16:47:07 Visit Remy BUSCH 350.1.13.10 it y of [place] 4.2.7.2.686 Geoff as KAVIN?BLEA [phone] [address] OFFICE [facility] 2021-10-31 2021-10-31 Outpatient [facility] [id number] Univers 15:30:00 16:04:43 REMY dhillon [facility] 2021-10-31 2021-10-31 Office [facility] 1.2.840.114 [id number] Univers 15:30:00 16:00:00 Visit Remy BUSCH 350.1.13.10 it y of [place] 4.2.7.2.686 Geoff as KAVIN?BLEA [phone] [address] OFFICE [facility] 2021-10-31 2021-10-31 Outpatient R [facility] [id number] Univers 15:30:00 15:30:00 REMY dhillon [facility] 2021-10-29 2021-10-29 Outpatient R [facility] [id number] Univers 13:00:00 13:00:00 VALERIALILIANE dhillon [facility] 2021-10-28 2021-10-28 [facility] [id number] Univers 16:32:54 23:59:00 REMY dhillon [facility] 2021-10-28 2021-10-28 [facility] [id number] Univers 16:30:00 16:31:00 REMY dhillon [facility] 2021-10-28 2021-10-28 [facility] [id number] Univers 16:00:00 16:30:00 Visit Remy BUSCH [id number] [facility] [id number] Geoff as KAVIN?BLEA [phone] [address] OFFICE [facility] 2021-10-28 2021-10-28 [facility] [id number] Univers 16:00:00 16:00:00 REMY dhillon [facility] 2021-07-30 2021-07-30 [place] [facility] [id number] Univers 00:00:00 00:00:00 [facility] [id number] it y of [place] [id number] Geoff as KAVIN?BLEA [phone] [facility] [address] MEDICAL OFFICE [facility] 2021-07-25 2021-07-25 [facility] [id number] Univers 17:48:49 23:59:00 Encounter [facility] [id number] ity of [place] [id number] Geoff as KAVIN?BLEA [id number] [facility] [address] MEDICAL OFFICE [facility] 2021-07-25 2021-07-25 [facility] Abdulaziz [facility] [id number] Univers 18:00:00 18:20:00 Care [facility] [id number] ity of [facility] [place] [id number] Geoff as KAVIN?BLEA [phone] [facility] [address] [facility] OFFICE [facility] 2021-07-25 2021-07-25 Outpatient R [facility] [id number] Univers 18:00:00 18:02:39 HILL dhillon o f [facility] 2021-07-25 2021-07-25 Outpatient R [facility] [id number] Univers 15:30:00 15:30:00 VALERIA dhillon [facility] 2021-07-17 2021-07-17 Outpatient R [facility] [id number] Univers 13:00:00 13:00:00 REFUGIO floreskb [facility] 2021-07-15 2021-07-15 Laboratory Only, Ang Db Test [facility] 1.2.8 [id number] [id number] Univers 19:15:00 19:30:00 [facility] [id number] ity of [place] [id number] Geoff as KAVIN?BLEA [id number] [facility] [address] MEDICAL OFFICE [facility]ING 2021-07-15 2021-07-15 Outpatient R [facility] [id number] Univers 19:20:00 19:20:00 DHARANIKOLAS dhillon [facility] 2021-07-15 2021-07-15 Outpatient R [facility] [id number] Univers 19:15:00 19:15:00 HILL dhillon o f [facility] 2021-07-10 2021-07-10 Emergency X CHLOE, [facility] ERT [id number] Univers 10:19:00 15:02:00 FOLBAILEYO itkb [facility] 2021-07-10 2021-07-10 Emergency [facility] 1.2.840.114 [id number] Univers 10:19:00 15:02:00 Hi Dukes [place] 350.1.13.10 ity of [place] 4.2.7.2.686 [facility] [place] [phone] [facility] [address] 2021-07-10 2021-07-10 Outpatient [facility] [id number] Univers 08:30:00 08:30:00 VALERIA kb [facility] 2021-06-25 2021-06-25 Outpatient [facility] [id number] Univers 16:00:00 16:00:00 VALERIA kb [facility] 2021-06-19 2021-06-19 Patient Alicia [facility] 1.2.840.114 [id number] Univers 00:00:00 00:00:00 Secure Msg Alejandra Munoz MULTISPEC 350.1.13.10 [place] [phone] [facility] AND TODD [address] [place] [facility] 2021-06-10 2021-06-10 Ergonomic Specialist Vtc-Lab [facility] 1.2.840.114 [id number] Univers 13:07:44 13:22:44 Visit Alejandra Vargas MULTISPEC 350.1. 13.10 [place] [phone] [facility] AND MINEOLA [address] [place] [facility] 2021-06-10 2021-06-10 Outpatient R [facility] [id number] Univers 12:30:00 13:08:41 ALEJANDRA dukes [facility] 2021-06-10 2021-06-10 Office [facility] 1.2.840.114 [id number] Univers 12:19:46 13:08:41 Visit Alejandra LEYVA 350.1.13.10 [place] [id number] [place] [address] [place] [facility] 2021-06-03 2021-06-03 Orders Doctor MANDI 1.2.840.114 [id number] Univers 00:00:00 00:00:00 Only Unassigned, MAKENZIE 350.1.13.10 ity of [place] [facility] 4.2.7.2.686 Geoff as [phone] [place] [address] [place] 2021-05-27 2021-05-27 Ergonomic Specialist Vtc-Lab [facility] 1.2.840.114 [id number] Univers 15:45:58 16:00:58 Visit Alejandra Vargas 350.1. 13.10 [place] [id number] [address] [facility] 2021-05-27 2021-05-27 Outpatient R [facility] [id number] Univers 14:30:00 15:46:54 ALEJANDRA dukes [facility] 2021-05-27 2021-05-27 Outpatient R [facility] [id number] Univers 14:30:00 15:46:54 ALEJANDRA dukes [facility] 2021-05-27 2021-05-27 Office [facility] 1.2.840.114 [id number] Univers 14:08:09 15:46:54 Visit Alejandra LEYVA 350.1.13.10 [place] [phone] [facility] AND [place] [address] [place] [facility] 2021-05-22 2021-05-22 Patient Rohan [facility] 1.2.840.114 [id number] Univers 00:00:00 00:00:00 Secure Msg Nitza HEALTH 350.1.13.10 ity [facility] 4.2.7.2.686 Geoff as KAVIN?BLEA [phone] [facility] 044 [facility] OFFICE [facility] 2021-05-14 2021-05-14 Outpatient R [facility] [id number] Univers 16:00:00 16:17:51 VALERIA dhillon [facility] 2021-05-14 2021-05-14 Office [facility] 1.2.840.114 [id number] Univers 15:52:21 16:17:51 Visit Valeria Gottlieb HEALTH 350.1.13.10 i ty of [facility] 4.2.7.2.686 Geoff as KAVIN?BLEA [phone] [address] OFFICE [facility] 2021-05-14 2021-05-14 Outpatient R [facility] [id number] Univers 16:00:00 16:00:00 VALERIA [facility] 2021-05-13 2021-05-13 Emergency Ev Hawkins [facility] 1.2.840 .114 [id number] Univers 00:06:00 01:59:00 Yany Mcdonald [place] 350.1.13.10 ity [facility] 4.2.7.2.686 [facility] [place] [phone] [facility] [address] [place] 2021-05-12 2021-05-12 Ergonomic Specialist Lab, Ang - Db [facility] 1.2.840.1 14 [id number] Univers 16:42:59 16:47:21 Visit Nitza Madrigal Health 350.1.13.10 ity of [place] 4.2.7.2.686 Geoff as Kavin?Blea [phone] [facility] 353 [facility] Office [facility] 2021-05-12 2021-05-12 Office Rohan [facility] 1.2.840.114 [id number] Univers 15:29:32 16:41:27 Visit Nitza Dealo 350.1.13.10 it y of [place] 4.2.7.2.686 Geoff as Kavin?Blea [phone] Co arnel lay [address] [place] Medical Office [facility] 2021-05-12 2021-05-12 Outpatient R [facility] [id number] Univers 15:30:00 15:30:00 NITZA ity of [facility] 2021-04-17 2021-04-17 Letter BritneyMANDI 1.2.840.114 [id number] Univers 00:00:00 00:00:00 (Out) Serina Velasco MAKENZIE 350.1.13.10 it y of [facility] 4.2.7.2.686 Geoff as [phone] [address] 2021-04-16 2021-04-16 Laboratory Only, Ang Db Test [facility] 1.2.8 40.114 [id number] Univers 11:21:42 11:36:42 Only Christy Alicea [facility] 350.1.13.10 ity of [place] 4.2.7.2.686 Geoff as Kavin?Blea [phone] Co arnel lay 370 [facility] Office [facility] 2021-04-16 2021-04-16 Outpatient R [facility] [id number] Univers 11:30:00 11:30:00 CHRISTY dhillon o f [facility] 2021-04-03 2021-04-03 Telephone Peng [facility] 1.2.840.114 [id number] Univers 00:00:00 00:00:00 Wondiful A Health 350.1.13.10 ity of [place] 4.2.7.2.686 Geoff as Kavin?Blea [phone] Co arnel lay 044 [facility] Office [facility] 2021-03-27 2021-03-27 Office Alonso [facility] 1.2.840.114 [id number] Univers 13:21:12 13:36:12 Visit Aleksandra Brooke Health 350.1.13.10 it y of [place] 4.2.7.2.686 Geoff as Kavin?Blea [phone] Co arnel lay 198 [facility] Office [facility] 2021-03-27 2021-03-27 Outpatient R [facility] [id number] Univers 13:30:00 13:30:00 ALEKSANDRA dhillon [facility] 2021-03-27 2021-03-27 Letter [facility] 1.2.731.694 [id number] Univers 00:00:00 00:00:00 (Out) Larisa Munoz Health 350.1.13.10 it y of [place] 4.2.7.2.686 Geoff as Kavin?Blea [phone] Co arnel lay 198 [facility] Office [facility] 2021-03-14 2021-03-14 Office [facility] 1.2.701.698 [id number] Univers 09:13:19 09:47:46 Visit Larisa Munoz Health 350.1.13.10 it y of [place] 4.2.7.2.686 Geoff as Kavin?Blea [phone] Co arnel lay 198 [facility] Office [facility] 2021-03-14 2021-03-14 Outpatient [facility] [id number] Univers 09:30:00 09:30:00 LARISA dhillon [facility] 2021-03-13 2021-03-13 Office [facility] 1.2.840.114 [id number] Univers 13:51:58 15:05:53 Visit Valeria Gottlieb Health 350.1.13.10 i ty of [place] 4.2.7.2.686 Geoff as Kavin?Blea [phone] Co arnel lay 044 [facility] Office [facility] 2021-03-13 2021-03-13 Outpatient R [facility] [id number] Univers 14:00:00 14:00:00 VALERIA dhillon [facility] 2021-03-12 2021-03-12 Telephone Rohan [facility] 1.2.276.772 [id number] Univers 00:00:00 00:00:00 Nitza Health 350.1.13.10 it y of [place] 4.2.7.2.686 Geoff as Kavin?Blea [phone] Co arnel lay 044 [facility] Office Building 2021-03-10 2021-03-10 Outpatient R [facility] [id number] Univers 15:07:49 23:59:00 NITZA dhillon [facility] 2021-03-10 2021-03-10 Outpatient R [facility] [id number] Univers 14:30:00 14:30:00 NITZA dhillon [facility] 2021-02-20 2021-02-20 Office [facility] 1.2.840.114 [id number] Univers 12:08:12 13:23:48 Visit Valeria Busch 350.1.13.10 i ty of [place] 4.2.7.2.686 Geoff as Professio [phone] [address] Office Building One 2021-02-20 2021-02-20 Outpatient [facility] [id number] Univers 12:30:00 12:30:00 VALERIA dhillon [facility] 2021-02-03 2021-02-03 Outpatient R RENAE[facility] [id number] Univers 10:00:00 10:00:00 JENIFER [facility] 2020-12-11 2020-12-11 Widler [facility] 1.2.840.114 [id number] Univers 00:00:00 00:00:00 Robin Rosado 350.1.13.10 i ty of [place] [phone] [address] 2020-12-09 2020-12-09 Ergonomic Specialist [facility] 1.2.840.114 [id number] Univers 11:29:46 11:44:46 Visit Jenifer Stoll 350.1.13.[address] [facility] [place].2.7.2.[place] [phone] [address] 2020-12-09 2020-12-09 Outpatient R RENAE, [facility] [id number] Univers 10:00:00 11:25:43 JENIFER jacquie [facility] 2020-12-092020-12-09 Office BRANDON Stoll 1.2.840.114 [id number] Univers 09:36:42 11:25:43 Visit Jenifer Y HEALTH 350.1.13.[address] [facility] 4.2.7.2.[place] [id number] [facility] [address] [place] 2020-12-09 2020-12-09 Outpatient R RENAE, [facility] [id number] Univers 10:00:00 10:00:00 JENIFER ity [facility] 2020-11-28 2020-11-28 Outpatient R PENG, [facility] [id number] Univers 10:30:00 10:30:00 WONDIFUL ity o f [facility] 2020-11-27 2020-11-27 Outpatient R ESTELA, [facility] [id number] Univers 09:00:00 09:00:00 KERRI dhillon [facility] 2020-11-13 2020-11-13 Outpatient [facility] [id number] Univers 00:00:00 00:00:00 WONDIFUL ity o f [facility] 2020-10-31 2020-10-31 Will [facility] 1.2.840.114 [id number] Univers 00:00:00 00:00:00 Management Wondiful A Health 350.1.13.10 ity of [place] 4.2.7.2.686 Geoff as Professio [phone] [facility] [address] [place] Office Building One 2020-10-29 2020-10-29 Ergonomic Specialist Beatriz, Martin Lab Main [facility] 1.2.8 40.114 [id number] Univers 08:15:59 08:35:59 Visit Valeria Philippe 350.1.13.10 ity of [place] [phone] Co dical nal [address] [place] [place] Building 2020-10-29 2020-10-29 Outpatient R [facility] [id number] Univers 08:00:00 08:00:00 VALERIA dhillon [facility] 2020-10-26 2020-10-26 Outpatient [facility] [id number] Univers 16:10:00 16:10:00 ity of [facility] 2020-10-25 2020-10-25 Office [facility] 1.2.840.114 [id number] Univers 13:06:45 14:06:38 Visit Wondiful A Health 350.1.13.10 ity of [place] 4.2.7.2.686 Geoff [facility] [phone] Co dical nal [address] Office Building One 2020-10-25 2020-10-25 Outpatient [facility] [id number] Univers 13:15:00 13:15:00 WONDIFUL ity o f [facility] 2020-10-05 2020-10-05 Outpatient [facility] [id number] Univers 16:10:00 16:10:00 ity of [facility] 2020-10-03 2020-10-03 Patient [facility] 1.2.840.114 [id number] Univers 00:00:00 00:00:00 Outreach Refugio PRIMARY 350.1.13.10 i ty of [facility] 4.2.7.2.686 [place] [facility] [phone] Co dical [address] [place] [place] 2020-06-24 2020-06-24 Hospital [facility] 1.2.126.183 [id number] Univers 13:35:47 23:59:00 Encounter Wondiful A [place] 350.1.13.10 ity of [place].2.686 [place] [phone] [facility] [address] 2020-06-24 2020-06-24 Outpatient [facility] [id number] Univers 13:35:47 23:59:00 WONDIFUL ity o f [facility] 2020-06-19 2020-06-19 Outpatient R [facility] [id number] Univers 00:00:00 00:00:00 QIANGJUN ity o f [facility] 2020-06-19 2020-06-19 Orders Doctor RAYMOND 1.2.840.114 [id number] Univers 00:00:00 00:00:00 Only Unassigned, MAKENZIE 350.1.13.10 ity of [place] [facility] 4.2.7.2.686 Geoff as [phone] [facility] [address] [place] 2020-06-17 2020-06-17 Laboratory Only, Adc Test [facility] 1.2.840. 114 [id number] Univers 15:32:02 15:47:02 Only Britton Costello 350.1.13.10 ity of [place].2.[place] [id number] [facility] [address] [place] 2020-06-17 2020-06-17 Outpatient R [facility] [id number] Univers 15:45:00 15:45:00 ity of [facility] 2020-06-12 2020-06-12 Case Peng [facility] 1.2.840.114 [id number] Univers 00:00:00 00:00:00 Management Judith A Health 350.1.13.10 ity of [place] 4.2.7.2.686 Geoff as Professio [phone] Co dical nal [address] [place] Office [facility] One 2020-06-04 2020-06-04 Telephone Peng [facility] 1.2.840.114 [id number] Univers 00:00:00 00:00:00 Ravindraful Bull [facility] 350.1.13.10 ity of [place] 4.2.7.2.686 Geoff as Professio [phone] Co dical nal 044 [facility] 2020-05-31 2020-05-31 Office Chau [facility] 1.2.840.114 [id number] Univers 10:22:28 11:58:37 Visit Elise [place] 350.1.13.10 ity of [place].2.[place] [phone] Co dical nal 059 [facility] 2020-05-31 2020-05-31 Outpatient R CHAU [facility] [id number] Univers 10:40:00 10:40:00 ELISE dhillon o f [facility] 2020-05-30 2020-05-30 Ergonomic Specialist Beatriz, Adc Lab Main [facility] 1.2.8 40.114 [id number] Univers 12:28:58 12:43:58 Visit Judith Khoury [place] 350.1.13. 10 ity of [place].2.[place] [phone] [facility] 353 [facility] 2020-05-30 2020-05-30 Office Peng [facility] 1.2.840.114 [id number] Univers 11:26:34 12:14:19 Visit Judith Gottlieb Health 350.1.13.10 ity of [place] 4.2.7.2.686 Geoff as Professio [phone] [facility] 044 [facility] 2020-05-30 2020-05-30 Ergonomic Specialist Lab, Adc Fam Pob I [facility] 1. 840.114 [id number] Univers 11:27:48 11:47:48 Visit Judith Khoury Health 350.1.13.1 0 ity of [place] 4.2.7.2.686 Geoff as Professio [phone] [facility] 044 [facility] 2020-05-30 2020-05-30 Outpatient [facility] [id number] [facility] 11:30:00 11:30:00 WONDIFUL ity o f [facility] 2020-05-30 2020-05-30 Orders Doctor MANDI 1..840.114 [id number] Univers 00:00:00 00:00:00 Only Unassigned, MAKENZIE 350.1.13.10 ity of [place] [facility] 4.2.7.2.686 Geoff as [phone] [address] 2020-05-30 2020-05-30 Telephone [facility] 1.2840.114 [id number] [facility] 00:00:00 00:00:00 Wondiful Bull [facility] 350.1.13.10 ity of [place] 4.2.7.2.686 Geoff as Professio [phone] [address] 2020-02-02 2020-02-02 Telephone Rohan [facility] 1.2.171.449 [id number] 00:00:00 00:00:00 Nitza Health 350.1.13.10 [place] 4.2.7.2.686 Professio [phone] [facility] Office Building One 2020-02-02 2020-02-02 Telephone Rohan, [facility] 1..970.964 [id number] Univers 00:00:00 00:00:00 Nitza Health 350.1.13.10 it y of [place] 4.2.7.2.686 Geoff as Professio [phone] [facility] nal [address] [place] [address] Office Building One 2020-02-01 2020-02-01 Laboratory Lab, Adc [facility] 1.2840.114 [id number] 12:53:49 15:29:04 Only Fam Pob I Health 350.1.13.10 [place] 4.2.7.2.686 Professio [phone] [place] [address] Office Building One 2020-02-01 2020-02-01 Laboratory Lab, Adc Fam Pob I [facility] 1.. 840.114 [id number] Univers 12:53:49 15:29:04 Only Noel Pruitt [facility] 350.1.13.10 ity of [place] 4.2.7.2.686 Geoff as Professio [phone] [facility] nal [address] [place] [address] Office Building One 2020-02-01 2020-02-01 Outpatient R MADAI, [facility] [id number] Univers 13:40:00 13:40:00 BOOIA ity of [facility] 2020-02-01 2020-02-01 Letter Lab, Pcp [facility] 1.2.840.114 [id number] Univers 00:00:00 00:00:00 (Out) Covid Health 350.1.13.10 it y of [place] 4.2.7.2.686 Geoff as Professio [phone] Co dicks nal [address] [place] [address] Office Building One 2020-02-01 2020-02-01 Letter Lab, Pcp [facility] 1.2.840.114 [id number] Univers 00:00:00 00:00:00 (Out) Covid Health 350.1.13.10 it y of [place] 4.2.7.2.686 Geoff as Professio [phone] Co dical nal [address] [place] [address] Office Building One 2020-01-28 2020-01-28 Laboratory Lab, Adc Fam Pob I [facility] 1. 840.114 [id number] Univers 09:24:35 09:39:01 Only Nitza Madrigal Health 350.1.13.10 ity of [place] 4.2.7.2.686 Geoff as Professio [phone] [address] 2020-01-28 2020-01-28 Outpatient O [facility] [id number] Univers 08:40:00 08:40:00 NITZA ity [facility] 2020-01-17 2020-01-17 Outpatient R [facility] [id number] Univers 09:00:00 09:00:00 ROBIN dhillon [facility] 2019-11-17 2019-11-17 Outpatient R [facility]ER [facility] [id number] Univers 09:45:00 09:45:00 ROBIN kb [facility] 2019-11-17 2019-11-17 Telemedici [facility] 1.2.840.114 [id number] Univers 08:15:11 08:30:11 ne Visit Robin Rosado 350.1.13.10 ity of [place] [phone] [address] 2019-03-31 2019-03-31 Office [facility] 1.2.840.114 [id number] [facility] 15:04:14 16:28:52 Visit Wondiful A Health 350.1.13.10 ity of [place] 4.2.7.2.686 Geoff as Professio [phone] [address] 2019-03-24 2019-03-24 [facility] 1.2.840.114 [id number] Univers 00:00:00 00:00:00 Wondiful A Health 350.1.13.10 ity of [place] 4.2.7.2.686 Geoff as Professio [phone] [address] One 2019-03-15 2019-03-15 Telephone [facility] 1.2.840.114 [id number] Univers 00:00:00 00:00:00 Wondiful A Health 350.1.13.10 ity of [place] 4.2.7.2.686 Geoff as Professio [phone] [address] Office Building One 2019-03-14 2019-03-14 Hospital [facility] 1.2.440.035 [id number] Univers 15:30:00 23:59:00 Encounter Wondiful A [place] 350.1.13.10 ity of [place].2.[place] [phone] [facility] [address] [place] 2019-03-14 2019-03-14 Office [facility] 1.2.840.114 [id number] Univers 14:47:21 15:20:36 Visit Wondiful A Health 350.1.13.10 ity of [place] 4.2.7.2.686 Geoff as Professio [phone] [address] Office Building One 2019-03-14 2019-03-14 Orders Doctor MANDI 1.2.840.114 [id number] Univers 00:00:00 00:00:00 Only Unassigned, MAKENZIE 350.1.13.10 ity of [place] [facility] 4.2.7.2.686 Geoff as [phone] [facility] [address] 2018-01-25 2018-01-25 Emergency X [facility] [id number] Univers 07:47:00 08:53:00 VINCE [facility] Results Test Description Test Time Test Comments Results Result Comments Source N-TERMINAL PRO-BNP 2023-03-19 14:56:08 Test Item Value Reference Range Interpretation Comme nts NT-proBNP (test code = 32113-6) <=125 Lab Interpretation (test code = 01486-2) Normal [facility] [id number] 14:22:19 Test Item Value Reference Range Interpretation Comments TROPONIN I (test code = 0.008 ng/mL <=0.034 [id number]) ANTONIO (test code = ANTONIO) Reference (Normal) Range (defined by the 99th percentile reference limit): <= 0.034 ng/mL Note: Cardiac troponin begins to rise 3-4 hours after the onset of ischemia. Repeat in 4-6 hours if the sample was drawn within 3-4 hours of the onset of the symptom and found normal. Diagnosis of myocardial injury is made with acute changes in cTn concentrations with at least one serial sample above the 99th percentile upper reference limit (URL), taken together with the patient's clinical presentation. Biotin has been reported to cause a negative bias, interpret results relative to patient's use of biotin. Lab Interpretation Normal (test code = 69567-1) [facility] METABOLIC PANEL (NA, K, CL, CO2, GLUCOSE, BUN, CREATININE, CA)2023-03-19 14:11:00 Test Item Value Reference Range Interpretation Comments NA (test code = 139 mmol/L 135-145 8902238621) K (test code = 4.6 mmol/L 3.5-5.0 8288095111) CL (test code = 106 mmol/L 98-108 0446294440) CO2 TOTAL (test code 26 mmol/L 23-31 = 9633875200) AGAP (test code = 7 2-16 6276556738) BUN (test code = 13 mg/dL 7-23 3250079807) GLUCOSE (test code = 102 mg/dL 70-110 4388718928) CREATININE (test code 0.92 mg/dL 0.60-1.25 = 6678546263) CALCIUM (test code = 9.1 mg/dL 8.6-10.6 4182692815) eGFR (test code = 89.4 mL/min/1.73m2 8635077672) ANTONIO (test code = ANTONIO) Association of Glomerular Filtration Rate (GFR) and Staging of Kidney Disease* + + +- +| GFR (mL/min/1.73 m2) ?| With Kidney Damage ?| ?Without Kidney Damage+ ------+ ----+ ------+| ?>90 ?| ?Stage one ?| ? Normal ?+ -+ + -+| ?60-89 ?| ?Stage two ?| ? Decreased GFR ? + + +- +| ?30-59 ?| ?Stage three ?| ? Stage three ? + + +- +| ?15-29 ?| ?Stage four ? | ? Stage four ?+ -+ + -+| ?<15 (or dialysis) ? ?| ?Stage five ? | ? Stage five ?+ -+ + -+ *Each stage assumes the associated GFR level has been in effect for at least three months. ?Stages 1 to 5, with or without kidney disease, indicate chronic kidney disease. Notes: Determination of stages one and two (with eGFR >59mL/min/1.73 m2) requires estimation of kidney damage for at least three months as defined by structural or functional abnormalities of the kidney, manifested by either:Pathological abnormalities or Markers of kidney damage (including abnormalities in the composition of the blood or urine or abnormalities in imaging tests). [facility] (ALB,T.PRO,BILI T,BU/BC,ALT,AST,ALK PHOS)2023-03-19 14:11:00 Test Item Value Reference Range Interpretation Comments TOTAL BILI (test code = 7809210374) 0.7 mg/dL 0.1-1.1 BILI UNCON (test code = 1172525938) 0.6 mg/dL 0.1-1.1 BILI CONJ (test code = 0119665932) 0.0 mg/dL 0.0-0.3 T PROTEIN (test code = 2292211051) 8.1 g/dL 6.3-8.2 ALBUMIN (test code = 4746465893) 4.3 g/dL 3.5-5.0 ALK PHOS (test code = 7997420032) 67 U/L 34-122 ALTv (test code = 1742-6) 43 U/L 5-50 AST(SGOT) (test code = 5044670696) 52 U/L 13-40 H Lab Interpretation (test code = Abnormal 36260-8) [facility] Test Item Value Reference Range Interpretation Comments LIPASE (test code = 9695018553) 103 U/L 0-220 Lab Interpretation (test code = Normal 06111-1) [facility] [id number] 13:57:39 Test Item Value Reference Range Interpretation Comments WBC (test code = 6.24 See_Comment [Automated 7490-2) message] The sy stem which generated this result transmitted reference range : 4.20 - 10.70 10*3/?L. The reference range was not used to interpret this result as normal/abnormal . RBC (test code = 5.43 See_Comment [Automated 789-8) message] The sy stem which generated this result transmitted reference range : 4.26 - 5.52 10*6/?L. The reference range was not used to interpret this result as normal/abnormal . HGB (test code = 16.7 g/dL 12.2-16.4 H 718-7) HCT (test code = 47.2 % 38.4-49.3 4544-3) MCV (test code = 86.9 fL 81.7-95.6 787-2) MCH (test code = 30.8 pg 26.1-32.7 785-6) MCHC (test code = 35.4 g/dL 31.2-35.0 H 786-4) RDW-SD (test code = 42.7 fL 38.5-51.6 49087-7) RDW-CV (test code = 13.4 % 12.1-15.4 788-0) PLT (test code = 186 See_Comment [Automated 777-3) message] The sy stem which generated this result transmitted reference range : 150 - 328 10*3/ ?L. The reference r paulette was not used to interpret this result as normal/abnormal . MPV (test code = 9.1 fL 9.8-13.0 L 60207-7) NRBC/100 WBC (test 0.0 See_Comment [Automat ed code = [id number]) message] The system which generated this result transmitted reference range : 0.0 - 10.0 /100 WBCs. The refer ence range was not u sed to interpret th is result as normal/abnormal . NRBC x10^3 (test code See_Comment [Auto mated = [id number]) message] The s ystem which generated this result transmitted reference range : 10*3/?L. The reference range was not used to interpret this result as normal/abnormal . GRAN MAT (NEUT) % 48.6 % (test code = 770-8) IMM GRAN % (test code 0.20 % = 0213684415) LYMPH % (test code = 39.6 % 736-9) MONO % (test code = 7.7 % 5905-5) EOS % (test code = 3.4 % 713-8) BASO % (test code = 0.5 % 706-2) GRAN MAT x10^3(ANC) 3.04 10*3/uL 1.99-6.95 (test code = 9763163572) IMM GRAN x10^3 (test 0.00-0.06 code = 7444829668) LYMPH x10^3 (test code 2.47 10*3/uL 1.09-3.23 = 731-0) MONO x10^3 (test code 0.48 10*3/uL 0.36-1.02 = 742-7) EOS x10^3 (test code = 0.21 10*3/uL 0.06-0.53 711-2) BASO x10^3 (test code 0.03 10*3/uL 0.01-0.09 = 704-7) Lab Interpretation Abnormal (test code = 79367-1) [facility] MOLECULAR [id number] 02:05:42 Test Item Value Reference Range Interpretation Comments POCT Molecular FluA (test code = Negative Negative 76674-4) POCT Molecular FluB (test code = Negative Negative 24245-2) Lab Interpretation (test code = Normal 55947-0) [facility] MOLECULAR [id number] 01:58:33 Test Item Value Reference Range Interpretation Comments POCT Molecular Strep (test code = Negative Negative 83605-5) Lab Interpretation (test code = Normal 10595-9) [facility] SARS-COV-2 ANTIGEN (BINAX NOW)2023-02-22 01:56:00 Test Item Value Reference Range Interpretation Comments POCT SARS-COV-2 ANTIGEN Not Detected Not Detected (test code = 55121-8) On board controls Yes acceptable with C Line (test code = 3574) ANTONIO (test code = ANTONIO) accurate development and interpretation of all internal controls Lab Interpretation Normal (test code = 64979-3) [facility] Notes Date/Time Note Provider Source 2023-03-19 [facility] 10:30:50-00:00 Pt given printed and verbal discharge instructions regarding Chest pain, Noncardiac, encouraged hydration, NO Prescriptions provided Discussed ibuprofen and to take with food to cary id GI distress. Pt verbalized understanding of instructions, pt awake alert oriented, resp reg unlabored, skin w/d, color appropriate for race, moves all ext well,pt encouraged to follow up with pcp Advised to seek medical attention for new/prolon ged/worsening of symptoms, No adverse reaction to meds given in ER noted up on discharge PIV d'cd, dressing to site, catheter in tact. Awake, alert oriented, resp reg unlabored, skin w/d, pt leaving amb with steady gait, in no apparent distress, Electronically signed by Edith Shelby RN at 10:31 AM CDT 2023-03-19 Formatting of this note might be differe nt from the original. Edith Shelby RN [facility] 07:57:16-00:00 Patient reports that he bega n having right sided chest pain yesterday that has gotten worse this AM with movement. Reports the pain is a "tightness" like feeling and describes it as a pulled muscle feel ing. Reports that he has als o been having sinus drainage and cough for a few days. Patient's son did test positive for COVID last week. Electronically signed by Edith Shelby RN at 7:59 AM T 2023-03-19 Formatting of this note is different fro m the original. [facility] 07:52:00-00:00 [facility] Emergency Department Note PHYSICIAN STAFF Patient Name: Martinez Roberson Date of : 1980 42 year old male Treatment Room: [facility] FT03/YYOP00-01 Primary Care Physician: Katiuska Brown Patient Escorted by: Self [9] Mode of Arrival: Personal means [1] EMS Treatment Prior to ED Arrival: Travel and Exposure Screening: Symptoms Does patient have any of these symptoms?: (not r ecorded) Exposure Screening Has patient had contact with someone with a communicable disease in the last month?: (not recorded) Diseases exposed to:: (not recorded) Is Patient ?: (not recorded) Exposure Date: (not recorded) Chief Complaint: Chief Complaint Patient presents with Chest Pain History of Present Illness: Patient here for right sided chest pain with cough and congestion since yesterday. Hurts more with cough. Denies fevers, ESPINAL, dizziness, SOB, abdominal rafat n, vomiting, diarrhea. Nonsmoker. Son tested positive for COVID last Wednesday. Past Medical History/Immunizations: Past Medical History: Diagnosis Date Anxiety disorder 11/06/2016 Depression 11/11/2017 Elevated liver function tests Essential hypertension 03/31/2022 Fatty liver 06/27/2020 Hepatosplenomegaly 11/09/2016 Hypercholesterolemia Obesity (BMI 30-39.9) 11/21/2016 Seasonal allergies Sleep apnea Varicocele 11/30/2017 Vitamin D deficiency 06/12/2020 Allergies: Allergies Allergen Reactions Ibuprofen Swelling Lips swell, taken it since episode of swelling without issues Past Social History: Tobacco Use Never smoked or used smokeless tobacco. Alcohol Use Yes. Comments: socially Drug Use No. Sexual Activity Sexually active; Partners: Female. Past Surgical History: Past Surgical History: Procedure Laterality Date COLONOSCOPY 2011 1 polyp, 10 year follow-up recommended ENDOSCOPIC CARPAL TUNNEL RELEASE PILONIDAL CYST EXCISION Review of Systems: Review of Systems Constitutional: Negative for activity change, appetite change, chills, diaphoresis, fatigue, fever, unexpected weight change, weight gain and weight loss. HENT: Positive for congestio n and rhinorrhea. Negative for dental problem, drooling, ear discharge, ear pain, facial swelling, hearing loss, mouth sores, nosebleeds, postnasal drip, sinus pressure, snee zing, sore throat, tinnitus, trouble swallowing and voice change. Eyes: Negative for photophob ia, pain, discharge, redness, itching and visual disturbance. Respiratory: Positive for co ugh and chest tightness. Negative for apnea, choking, shortness of breath, wheezing and stridor. Breasts: Negative for discharge, mass, pain and unequal size. Cardiovascular: Positive for chest pain. Negative for palpitations and leg swelling. Gastrointestinal: Negative f or abdominal distention, abdominal pain, anal bleeding, blood in stool, constipation, diarrhea, nausea, rectal pain and vomiting. Genitourinary: Negative for bladder incontinence, dysuria, urgency, polyuria, frequency, hematuria, flank pain, decreased urine volume, discharge, penile swelling, scrotal swelling, enuresis, difficulty urinating, genital sores, penile pain, testicul ar pain and nocturia. Musculoskeletal: Negative fo r arthralgias, back pain, gait problem, joint swelling, myalgias, neck pain and neck stiffness. Skin: Negative for color change, pallor, rash an d wound. Neurological: Negative for d izziness, tremors, seizures, syncope, facial asymmetry, speech difficulty, weakness, light-headedness, numbness and headaches. Psychiatric/Behavioral: Nega tive for agitation, behavioral problems, confusion, decreased concentration, dysphoric mood, hallucinations, self-injury, sleep disturbance and suicidal ideas. The patient is not nervous/anxious and is not hyperactive. Hematological: Negative for adenopathy, cold intolerance and heat intolerance. Does not bruise/bleed easily. Endocrine: Negative for goit er, hair loss, cold intolerance, heat intolerance, polydipsia, polyphagia, polyuria, weight gain and weight loss. Physical Exam: ED Triage Vitals Weight -- Actual or estimated -- Height -- BP 03/19/23 0856 115/74 Pulse 03/19/23 0758 64 Resp 03/19/23 0758 20 Temp 03/19/23 0758 36.4 ?C (97.5 ?F) Temp source 03/19/23 0758 Oral SpO2 03/19/23 0758 100 % Measured on 03/19/23 0758 Room air Physical Exam Constitutional: General: He is not in acute distress. Appearance: Normal appearan ce. He is normal weight. He is not ill-appearing, toxic-appearing or diaphoretic. HENT: Head: Normocephalic and atraumatic. Right Ear: Tympanic membran e and ear canal normal. There is no impacted cerumen. Left Ear: Tympanic membrane and ear canal normal. There is no impacted cerumen. Nose: Congestion and rhinorrhea present. Mouth/Throat: Mouth: Mucous membranes are moist. Pharynx: Oropharynx is michael r. No oropharyngeal exudate or posterior oropharyngeal erythema. Eyes: General: No scleral icterus. Right eye: No discharge. Left eye: No discharge. Extraocular Movements: Extraocular movements in tact. Conjunctiva/sclera: Conjunctivae normal. Pupils: Pupils are equal, round, and reactive t o light. Neck: Vascular: No carotid bruit. Cardiovascular: Rate and Rhythm: Normal rate and regular rhythm . Pulses: Normal pulses. Heart sounds: Normal heart sounds. No murmur he rangel. No friction rub. No gallop. Pulmonary: Effort: Pulmonary effort is normal. No respirat ory distress. Breath sounds: Normal breat h sounds. No stridor. No wheezing, rhonchi or rales. Comments: + right anterior reproducible chest p ain with palpation. Chest: Chest wall: Tenderness present. Abdominal: General: Abdomen is flat. Bowel sounds are norm al. There is no distension. Palpations: Abdomen is soft. There is no mass. Tenderness: There is no abd ominal tenderness. There is no right CVA tenderness, left CVA tenderness, guarding or rebound. Hernia: No hernia is present. Musculoskeletal: General: No swelling, tende rness, deformity or signs of injury. Normal range of motion. Cervical back: Normal range of motion and neck supple. No rigidity or tenderness. Right lower leg: No edema. Left lower leg: No edema. Lymphadenopathy: Cervical: No cervical adenopathy. Skin: General: Skin is warm and dry. Capillary Refill: Capillary refill takes less t rodas 2 seconds. Coloration: Skin is not jaundiced or pale. Findings: No bruising, erythema, lesion or rash . Neurological: General: No focal deficit present. Mental Status: He is alert and oriented to person, place, and time. Mental status is at baseline. Cranial Nerves: No cranial nerve deficit. Sensory: No sensory deficit. Motor: No weakness. Coordination: Coordination normal. Gait: Gait normal. Deep Tendon Reflexes: Reflexes normal. Psychiatric: Mood and Affect: Mood normal. Behavior: Behavior normal. Thought Content: Thought content normal. Judgment: Judgment normal. Radiology: XR CHEST 2 VW Final Result EXAM: XR CHEST 2 VW COMPARISON: Chest x-ray 07/25/2021 HISTORY: CP IMPRESSION FINDINGS/IMPRESSION: Lungs: The lung volumes are normal. No pneumotho rax or pleural effusion. No focal opacity. There is prominent peribronchi al cuffing. Findings are nonspecific but concerning for respiratory tract infection. Heart/Mediastinum: The cardiomediastinal silhoue tte is enlarged. Bones and soft tissues: No focal osseous lesions or acute osseous findings are detected. Preliminary Report Dictated by Resident: Austin Ray MD., have reviewed t his study and agree with the above report. Lab Results: Lab Results CBC WITH DIFF - Abnormal Result Value Ref Range WBC 6.24 4.20 - 10.70 10*3/?L RBC 5.43 4.26 - 5.52 10*6/?L HGB 16.7 (*) 12.2 - 16.4 g/dL HCT 47.2 38.4 - 49.3 % MCV 86.9 81.7 - 95.6 fL MCH 30.8 26.1 - 32.7 pg MCHC 35.4 (*) 31.2 - 35.0 g/dL RDW-SD 42.7 38.5 - 51.6 fL RDW-CV 13.4 12.1 - 15.4 % PLT 186 150 - 328 10*3/?L MPV 9.1 (*) 9.8 - 13.0 fL NRBC/100 WBC 0.0 0.0 - 10.0 /100 WBCs NRBC x10^3 <0.01 10*3/?L GRAN MAT (NEUT) % 48.6 % IMM GRAN % 0.20 % LYMPH % 39.6 % MONO % 7.7 % EOS % 3.4 % BASO % 0.5 % GRAN MAT x10^3(ANC) 3.04 1.99 - 6.95 10*3/uL IMM GRAN x10^3 <0.03 0.00 - 0.06 10*3/uL LYMPH x10^3 2.47 1.09 - 3.23 10*3/uL MONO x10^3 0.48 0.36 - 1.02 10*3/uL EOS x10^3 0.21 0.06 - 0.53 10*3/uL BASO x10^3 0.03 0.01 - 0.09 10*3/uL HEPATIC FUNCTION PANEL (8007 6) (ALB,T.PRO,BILI T,BU/BC,ALT,AST,ALK PHOS) - Abnormal TOTAL BILI 0.7 0.1 - 1.1 mg/dL BILI UNCON 0.6 0.1 - 1.1 mg/dL BILI CONJ 0.0 0.0 - 0.3 mg/dL T PROTEIN 8.1 6.3 - 8.2 g/dL ALBUMIN 4.3 3.5 - 5.0 g/dL ALK PHOS 67 34 - 122 U/L ALTv 43 5 - 50 U/L AST(SGOT) 52 (*) 13 - 40 U/L COVID-19 (ID NOW RAPID TESTING) - Normal SARS-CoV-2 Rapid ID NOW Not Detected Not Detect ed LIPASE - Normal LIPASE 103 0 - 220 U/L TROPONIN I - Normal TROPONIN I 0.008 <=0.034 ng/mL N-TERMINAL PRO-BNP - Normal NT-proBNP <20 <=125 pg/mL BASIC METABOLIC PANEL (NA, K, CL, CO2, GLUCOSE, BUN, CREATININE, CA) NA 139 135 - 145 mmol/L K 4.6 3.5 - 5.0 mmol/L CL 106 98 - 108 mmol/L CO2 TOTAL 26 23 - 31 mmol/L AGAP 7 2 - 16 BUN 13 7 - 23 mg/dL GLUCOSE 102 70 - 110 mg/dL CREATININE 0.92 0.60 - 1.25 mg/dL CALCIUM 9.1 8.6 - 10.6 mg/dL eGFR 89.4 mL/min/1.73m2 EKG: NSR 65 bpm, no acute ST-T wave changes. Orders and Treatments: Orders Placed This Encounter Procedures XR CHEST 2 VW COVID-19 (ID NOW TESTING) CBC WITH DIFF BASIC METABOLIC PANEL (NA, K, CL, CO2, GLUCOSE, BUN, CREATININE, CA) HEPATIC FUNCTION PANEL (61340) (ALB,T.PRO,BILI T,BU/BC,ALT,AST,ALK PHOS) LIPASE TROPONIN I N-TERMINAL PRO-BNP LAB ONLY COVID INTERPRETATION Orders Placed This Encounter Medications acetaminophen (TYLENOL) tablet 650 mg First Provider Eval: ED Events Date/Time Event User Comments 03/19/23 0811 Medical Screening Begins ZEB SULTANA DO -- 03/19/23 08 First Provider Evaluation ZEB SULTANA DO -- No notes of EC Admission Criteria type on file. ED COURSE Diagnosis/Impression as of 03/19/23 1013 Other forms of angina pectoris Procedures: Procedures MDM: Medical Decision Making Patient here for right sided chest pain with cough and congestion since yesterday. Hurts more with cough. Denies fevers, ESPINAL, dizziness, SOB, abdominal rafat n, vomiting, diarrhea. Nonsmoker. Son tested positive for COVID last Wednesday. Amount and/or Complexity of Data Reviewed Labs: ordered. Decision-making details documente d in ED Course. Details: Labs WNL's Radiology: ordered. Decision-making details docu mented in ED Course. Details: CXR: NAPD ECG/medicine tests: ordered and independent inte rpretation performed. Details: EKG: NSR 65 bpm, no acute ST-T wave changes. Discussion of management or test interpretation with external provider(s): Patient feeling better. Ok to go home. Risk OTC drugs. Flowsheet Documentation: Scoring Tools: No data recorded Dx: Chest pain, noncardiac. Pleurisy. Disposition/Condition: Discharged home. Sharif Sultana D.O. Physician RTI Billing ID #[id number] Sharif Sultana DO 03/19/23 1014 Electronically signed by Sharif Sultana DO at 0 03/19/2023 10:14 AM CDT 2023-02-17 [facility] 10:37:53-00:00 A user error has taken place : encounter opened in error, closed for administrative reasons. Electronically signed by Grace Guerra MA a t 02/17/2023 10:39 AM CDT 2023-02-16 Formatting of this note might be differe nt from the original. Berkley Schaefer RN [facility] 15:04:13-00:00 Images from the original note were not included. Jackie Mckeon FNP Abrego, Stephanie, MA; P Pulmonary Nurse Supplies Rx: nasal pillow mask, heated tubing APAP therapy pressure settin gs [id number] with EPR:3cmH2O and heated humidification with choice mask. DME : Margi Roberson 1980 [id number] Received CPAP supply refill request from Jackie Mckeon FNP. Last office visit 02/16/23 Follow Up visit - 02/18/24 Last DME sent - 11/24/22 RX sent to [facility] via [facility]
[2023-03-23] MEDS ORDERED: LORAZEPAM 1 MG TABLET ONE (10:20)
[2023-03-23 10:25] LABS: Absolute Lymphocytes (CBC) 2.1 K/uL (0.7-4.9); Hematocrit 50.1 % (39.6-49.0); Lymphocytes % 36.6 % (15.3-44.8); MCV 88.1 fL (80-100); MPV 7.3 fL (7.6-11.3); Platelets 206 thou/uL (152-406); RBC Red Blood Cell Count 5.69 M/uL (4.33-5.43)
[2023-03-23 10:42] LABS: Potassium 3.8 mEq/L (3.5-5.1); Troponin High Sensitivity 5.6 pg/mL (<58.9)
--- NOTE | 2023-03-23 11:05 | RAD REPORT ---
EXAM DESCRIPTION: RAD - Chest Single View - 03/23/2023 10:26 am CLINICAL HISTORY: CHEST PAIN Chest pain. COMPARISON: No comparisons FINDINGS: Portable technique limits examination quality. The lungs are grossly clear. The heart is normal in size. No displaced fractures. IMPRESSION: No acute intrathoracic process suspected.
--- NOTE | 2023-03-23 11:23 | ER ---
Nurse's Notes [facility] Name: Sumit Roberson Age: 42 yrs Sex: Male : 1980 Arrival Date: 03/23/2023 Time: 09:30 Bed 15 Private MD: Diagnosis: Generalized anxiety disorder Presentation: 03/23 09:43 Chief complaint: Patient states: I have been having small anxiety attacks for the last hb few days, today it is really bad and I can't seem to get out of it. Coronavirus screen: At this time, the client does not indicate any symptoms associated with coronavirus-19. Ebola Screen: No symptoms or risks identified at this time. Initial Sepsis Screen: Does the patient meet any 2 criteria? No. Patient's initial sepsis screen is negative. Does the patient have a suspected source of infection? No. Patient's initial sepsis screen is negative. Risk Assessment: Do you want to hurt yourself or someone else? Patient reports no desire to harm self or others. Onset of symptoms was March 20, 2023. 09:43 Method Of Arrival: Ambulatory hb 09:43 Acuity: ISABEL 3 hb Historical: - Allergies: 09:44 No Known Allergies; hb - PMHx: 09:44 fatty liver; hb - Immunization history:: Adult Immunizations up to date. - Social history:: Smoking status: Patient denies any tobacco usage or history of. Screenin:50 [facility] ED Fall Risk Assessment (Adult) History of falling in the last 3 months, ko1 including since admission No falls in past 3 months (0 pts) Confusion or Disorientation No (0 pts) Intoxicated or Sedated No (0 pts) Impaired Gait No (0 pts) Mobility Assist Device Used No (0 pt) Altered Elimination No (0 pt) Score/Fall Risk Level 0 - 2 = Low Risk Oriented to surroundings, Maintained a safe environment, Educated pt \T\ family on fall prevention, incl call for assistance when getting out of bed, Assessed \T\ reinforced patient's understanding of fall precautions, Provided non-skid footwear, Hourly rounding (assess needs \T\ fall precautionary measures) done, Used ambulatory aids as needed (educated on \T\ assisted with), Used gait belt as appropriate. Abuse screen: Denies threats or abuse. Denies injuries from another. Nutritional screening: No deficits noted. Tuberculosis screening: No symptoms or risk factors identified. Assessment: 09:50 General: Appears distressed, uncomfortable, Behavior is appropriate for age, anxious, ko1 restless. Pain: Complains of pain in anterior aspect of left upper chest. Neuro: No deficits noted. Cardiovascular: Reports chest pain. Respiratory: No deficits noted. GI: No deficits noted. : No deficits noted. EENT: No deficits noted. Derm: No deficits noted. Musculoskeletal: No deficits noted. Vital Signs: 09:43 BP 141 / 99; Pulse 81; Resp 18; Temp 98.3; Pulse Ox 100% on R/A; Weight 117.93 kg; hb Height 5 ft. 9 in. ; Pain 3/10; 09:50 BP 122 / 66; Pulse 64; Resp 16; Pulse Ox 95% ; ko1 11:34 BP 126 / 62; Pulse 62; Resp 16; Pulse Ox 99% ; ko1 09:43 Body Mass Index 38.39 (117.93 kg, 175.26 cm) hb 09:43 Pain Scale: Adult hb ED Course: 09:32 Patient arrived in ED. rg4 09:44 Triage completed. hb 09:45 Arm band placed on. hb 09:50 Patient has correct armband on for positive identification. Bed in low position. Call ko1 light in reach. Side rails up X 1. Provided Education on: na. Client placed on continuous cardiac and pulse oximetry monitoring. NIBP monitoring applied. surveillance monitor on. Door closed. Noise minimized. Lights dimmed. Warm blanket given. 09:55 Jami Bradshaw, CANDE is Primary Nurse. ko1 09:58 Alejandra Clark FNP is PHCP. 7 09:58 Juan Pablo Cardenas MD is Attending Physician. jh7 10:15 Inserted saline lock: 20 gauge in right antecubital area, using aseptic technique. ko1 Blood collected. 10:17 Basic Metabolic Panel Sent. ko1 10:17 CBC with Diff Sent. ko1 10:17 Troponin HS Sent. ko1 10:28 XRAY Chest (1 view) In Process Unspecified. EDMS 11:34 No provider procedures requiring assistance completed. IV discontinued, intact, ko1 bleeding controlled, No redness/swelling at site. Pressure dressing applied. Administered Medications: 10:12 Drug: LORazepam PO 1 mg Route: PO; nj1 Medication: 09:50 VIS not applicable for this client. ko1 Outcome: 11:22 Discharge ordered by . erna 11:34 Discharged to home ambulatory, with family. ko1 11:34 Condition: improved 11:34 Discharge instructions given to patient, family, Instructed on discharge instructions, follow up and referral plans. Demonstrated understanding of instructions, follow-up care. 11:42 Patient left the ED. ko1 Signatures: Dispatcher [employer] EDMS Sera Bowens RN RN Tatiana Moya 4 Alejandra Clark FNP [employer]LL OPERATOR 7 Jami Bradshaw RN RN ko1 Diana Sprague RN RN nj1 Corrections: (The following items were deleted from the chart) 09:45 09:44 Allergies: Morphine; hb hb
--- NOTE | 2023-03-23 11:23 | EDPHYS ---
Physician Documentation [facility] Name: Sumit Roberson Age: 42 yrs Sex: Male : 1980 Arrival Date: 03/23/2023 Time: 09:30 Bed 15 Private MD: ED Physician Juan Pablo Cardenas HPI: 03/23 09:40 This 42 yrs old Male presents to ER via Ambulatory with complaints of Anxiety, jh7 Palpitations. 09:40 Onset: The symptoms/episode began/occurred this morning. Associated signs and symptoms: jh7 Pertinent positives: chest pain, Pertinent negatives: abdominal pain, fever, shortness of breath, sore throat. 42-year-old male presents for anxiety, palpitations, and panic attacks starting since this morning. The patient reports that he takes Zoloft daily. Reports that he was seen at [facility] for chest pain on Wednesday and reports that the chest pain started . Reports that he has a history of anxiety but he is concerned about the chest pain. History of high cholesterol.. Historical: - Allergies: :42 No Known Allergies; hb - PMHx: 09:44 fatty liver; hb - Immunization history:: Adult Immunizations up to date. - Social history:: Smoking status: Patient denies any tobacco usage or history of. ROS: 09:40 Constitutional: Negative for fever, chills, and weight loss, Eyes: Negative for injury, jh7 pain, redness, and discharge, ENT: Negative for injury, pain, and discharge, Respiratory: Negative for shortness of breath, cough, wheezing, and pleuritic chest pain, Abdomen/GI: Negative for abdominal pain, nausea, vomiting, diarrhea, and constipation, Back: Negative for injury and pain, MS/Extremity: Negative for injury and deformity, Skin: Negative for injury, rash, and discoloration, Neuro: Negative for headache, weakness, numbness, tingling, and seizure. 09:40 Cardiovascular: Positive for chest pain, palpitations. 09:40 Psych: Positive for anxiety, Negative for suicide gesture, suicidal ideation. 09:40 All other systems are negative. Exam: 09:40 Head/Face: Normocephalic, atraumatic. Neck: Trachea midline, no thyromegaly or masses jh7 palpated, and no cervical lymphadenopathy. Supple, full range of motion without nuchal rigidity, or vertebral point tenderness. No Meningismus. Cardiovascular: Regular rate and rhythm with a normal S1 and S2. No gallops, murmurs, or rubs. Normal PMI, no JVD. No pulse deficits. Respiratory: Lungs have equal breath sounds bilaterally, clear to auscultation and percussion. No rales, rhonchi or wheezes noted. No increased work of breathing, no retractions or nasal flaring. Abdomen/GI: Soft, non-tender, with normal bowel sounds. No distension or tympany. No guarding or rebound. No evidence of tenderness throughout. Skin: Warm, dry with normal turgor. Normal color with no rashes, no lesions, and no evidence of cellulitis. MS/ Extremity: Pulses equal, no cyanosis. Neurovascular intact. Full, normal range of motion. Neuro: Awake and alert, GCS 15, oriented to person, place, time, and situation. Cranial nerves II-XII grossly intact. Motor strength 5/5 in all extremities. Sensory grossly intact. Cerebellar exam normal. Normal gait. 09:40 Constitutional: The patient appears alert, awake, anxious. Vital Signs: 09:43 BP 141 / 99; Pulse 81; Resp 18; Temp 98.3; Pulse Ox 100% on R/A; Weight 117.93 kg; hb Height 5 ft. 9 in. ; Pain 3/10; 09:50 BP 122 / 66; Pulse 64; Resp 16; Pulse Ox 95% ; ko1 11:34 BP 126 / 62; Pulse 62; Resp 16; Pulse Ox 99% ; ko1 09:43 Body Mass Index 38.39 (117.93 kg, 175.26 cm) hb 09:43 Pain Scale: Adult hb MDM: 09:58 Patient medically screened. [facility] 11:15 Differential diagnosis: Acute LA, anxiety, unstable angina. Data reviewed: vital signs, [facility] nurses notes, lab test result(s), EKG, radiologic studies, plain films. I considered the following discharge prescriptions or medication management in the emergency department Medications were administered in the Emergency Department. See MAR. Independent interpretation of the following test(s) in the Emergency Department EKG: See my EKG interpretation above. Care significantly affected by the following chronic conditions: Liver Disease. Counseling: I had a detailed discussion with the patient and/or guardian regarding the historical points, exam findings, and any diagnostic results supporting the discharge/admit diagnosis, to return to the emergency department if symptoms worsen or persist or if there are any questions or concerns that arise at home. Response to treatment: the patient's symptoms have markedly improved after treatment. 03/23 10:05 Order name: Basic Metabolic Panel; Complete Time: 10:52 [facility] 03/23 10:05 Order name: CBC with Diff; Complete Time: 10:28 [facility] 03/23 10:05 Order name: Troponin HS; Complete Time: : [facility] 03/23 10:05 Order name: XRAY Chest (1 view); Complete Time: 11:10 [facility] 03/23 10:05 Order name: EKG; Complete Time: 10: [facility] 03/23 10:05 Order name: Cardiac monitoring; Complete Time: 10: [facility] 03/23 10:05 Order name: EKG - Nurse/Tech; Complete Time: 10:12 [facility] 03/23 10:05 Order name: IV Saline Lock; Complete Time: 10:12 [facility] 03/23 10:05 Order name: Labs collected and sent; Complete Time: 10: [facility] 03/23 10:05 Order name: O2 Per Protocol; Complete Time: 10: [facility] 03/23 10:05 Order name: O2 Sat Monitoring; Complete Time: : [facility] EC:10 Rate is 77 beats/min. Rhythm is regular. QRS [place] is Normal. [place] interval is normal at [facility] 160 msec. QRS interval is normal at 86 msec. QT interval is normal at 376 msec. No Q waves. T waves are Normal. No ST changes noted. Clinical impression: Normal ECG. Administered Medications: 10:12 Drug: LORazepam PO 1 mg Route: PO; nj1 Disposition: 13:54 Co-signature as Attending Physician, Juan Pablo Cardenas MD I reviewed the patient's care rn provided by the Advanced Practice Provider and agree with the diagnosis and treatment plan. Disposition Summary: 03/23/23 11:22 Discharge Ordered Location: Home [facility] Problem: new [facility] Symptoms: have improved [facility] Condition: Stable [facility] Diagnosis - Generalized anxiety disorder [facility] Followup: [facility] - With: Private Physician - When: 2 - 3 days - Reason: Recheck today's complaints Discharge Instructions: - Discharge Summary Sheet [facility] - Panic Attack 7 - Generalized Anxiety Disorder, Adult [facility] - Managing Anxiety, Adult [facility] Forms: - Medication Reconciliation Form [facility] - Thank You Letter [facility] - Patient Portal Instructions [facility] - Leadership Thank You Letter [facility] Signatures: Dispatcher [employer] Juan Pablo Villa MD MD rn Baxter, Heather, RN RN Alejandra Clark, [place] [id number] Jami Bradshaw RN RN ko1 Diana Sprague RN RN nj1 Corrections: (The following items were deleted from the chart) 09:45 09:44 Allergies: Morphine; hb
[2023-03-23 12:03] VITALS: TEMP 98.3
[2023-03-23 12:10] VITALS: BP 126/62; O2SAT 99
--- NOTE | 2023-03-23 16:42 | EKG ---
Test Date: 2023-03-23 Test Time: 10:10:24 Electronic Wirer: SILVANO MEASUREMENT RESULTS: Intervals: Rate: 77 WA: 160 QRSD: 86 QT: 376 QTc: 425 [place]: P: 61 WA: 160 QRS: 64 T: 28 INTERPRETIVE STATEMENTS: Normal sinus rhythm Normal ECG No previous ECG available for comparison Electronically Signed On 03-23-23 16:41:35 CDT by Hunter Feliciano
== END 2023-03-23 11:42 | disposition home or self-care (01) ==
LOC: ER 09:30
DX: F41.1 Generalized anxiety disorder (principal)
CPT/HCPCS: 36415; 71045; 80048; 84484; 85025; 93005; 99284

== ENCOUNTER 2024-03-17 13:24 | Emergency (ER) | payer OTHER ==
--- OUTSIDE RECORDS SUMMARY | 2024-03-17 13:38 | XMS REPORT | Continuity of Care Document ---
Author Name Unknown Address [address] [facility] [address] [place] [address] [facility] thconnect Address [address] [facility] [place] [address] Care Team Providers Care Intervention Manager Name Role Phone Remy Laws Primary Care Physician [phone] REMY HARP Attending Clinician Unavailable Kaykay Merrill PTA Attending Clinician Unavail Larisa Awan MD Attending Clinician [phone] LARISA RICHARDS Attending Clinician UnavailLARISA Fung Attending Clinician UnavailRemy Garcia Attending Clinician [phone] Renny Merrill PTA Attending Clinician Unavaila ryan Lab, Ang - Db Attending Clinician Unavailable Unknown, Attending Attending Clinician Unavailab le Doctor Unassigned, [place] Attending Clinician U JACKIE Vital Attending Clinician UnavailJACKIE Koenig Attending Clinician UnavailKAI Royal Attending Clinician Unavailable Kai Davidson MD Attending Clinician [phone] Remy Laws Attending Clinician [phone] Doctor Unassigned, [place] Attending Clinician U Renny Purcell PTA Attending Clinician Unavaila Larisa Gates MD Attending Clinician [phone] Kaykay Merrill PTA Attending Clinician Unavail able AURELIO MCDONALD Attending Clinician Unavailable Harry SOCIAL MEDIA DESIGNER, Aurelio Attending Clinician [phone] Unknown, Attending Attending Clinician Unavailab VALERIA Ireland Attending Clinician Unavailable Valeria Solomon Attending Clinician [phone] Lakeshia Covarrubias PT Attending Clinician Unavailmelissa e Sonal SOCIAL MEDIA DESIGNER, Noel Attending Clinician [phone] NOEL PRUITT Attending Clinician Unavailable Britton Yanez MD Attending Clinician [phone] Elise Ritchie MD Attending Clinician [phone] ELISE RITCHIE Attending Clinician Unavailable Lab, Ang - Db Attending Clinician Unavailable Sandra Taylor MA Attending Clinician Unavailab SHARIF Yuen Attending Clinician Unavailable SHARIF SULTANA Attending Clinician Unavailable KadeSharif paris DO Attending Clinician [phone] Bartolo DURAN, [place] Attending Clinician [phone] ENID MCFARLAND Attending Clinician Unavailable BRITTON YANEZ Attending Clinician UnavailAurelio Curran PTA Attending Clinician Unavail able Sarah Troy PTA Attending Clinician [facility] Attending Clinician UnavailAlireza Patel MD Attending Clinician [phone] ALIREZA SHIPMAN Attending Clinician Unavaila ALIREZA Whitman Attending Clinician Unavaila ryan Casarez PT, Charity Attending Clinician Un available Kelvin Macdonald Attending Clinician [phone] Kai Davidson MD Attending Clinician [phone] Joselito Beauchamp MD Attending Clinician [phone] Dhara Cintron MD Attending Clinician [phone] DHARA CINTRON Attending Clinician Unavailable John RYAN, Lindy Velasco Attending Clinician Unavail able Chioma DURAN, Hill Attending Clinician [phone] HILL BEDOLLA Attending Clinician Unavailabl REFUGIO Ritchie Attending Clinician Unavail able Only, Ang Db Test Attending Clinician Unavailabl HI Jaeger Attending Clinician Unavaila ble Ibikunle SOCIAL MEDIA DESIGNER, Hi Dukes Attending Clinician [phone] Alejandra Vargas MD Attending Clinician + [phone] [facility] Attending Clinician Unavailable ALEJANDRA VARGAS Attending Clinician Fady Madrigal SOCIAL MEDIA DESIGNER, Nitza Attending Clinician [phone] Ross BILLS, Ev Brooke Attending Clinician [phone] NITZA MADRIGAL Attending Clinician Unavailable Britney CASTELLON, Serina Velasco Attending Clinician Unavailab maria eugenia DURAN, Christy Sharp Attending Clinician + [phone] CHRISTY ALICEA Attending Clinician Unavailab Jese BILLS, Judith Gottlieb Attending Clinician + [phone] Aleksandar Velez Attending Clinician [phone] ALEKSANDRA GUPTA Attending Clinician Unavailable JENIFER MACDONALD Attending Clinician UnavailRobin Anaya MD Attending Clinician + [phone] [facility] Attending Clinician Unavailable Jenifer Gerber Attending Clinician [phone] JUDITH KHOURY Attending Clinician UnavailKRERI Arreguin Attending Clinician Unavailable Pob, [facility] Main Attending Clinician UnavailRefugio Jim DO Attending Clinician [phone] Only, [facility] Test Attending Clinician Unavailable Britton Costello MD Attending Clinician [phone] Lab, [facility] Fam Pob I Attending Clinician Unavailab del cid Lab, Pcp Valerie Attending Clinician Unavailable ROBIN BURGESS Attending Clinician IVNCE Krishnamurthy Attending Clinician Unavailable REMY HARP Admitting Clinician Unavailable ELISE RITCHIE Admitting Clinician Unavailable SHARIF SULTANA Admitting Clinician Unavailable HI CORONA Admitting Clinician UnavailJUDITH Burgess Admitting Clinician UnavailVINCE Puri Admitting Clinician Unavailable Payers Payer Name Policy Type Policy Number Effective Date Expirati on Date Source [facility] [id number] 2016 00:00:00 Problems Condition Name Condition Details Condition Category Status Onset Date Resolution Date Last Treatment Date Treating Clinician Comments Source Upper respirator y tract infection, unspecifie d type Upper respirator y tract infection, unspecifie d type Disease Active 7-15 00:00: 00 [facility] Obesity (BMI 30-39.9) Obesity (BMI 30-39.9) Disease Active 2022-07 0-23 00:00: 00 [facility] Pharyngiti s, acute Pharyngiti s, acute Disease Active 03-26 00:00: 00 [facility] Panic disorder without agoraphobi a Panic disorder without agoraphobi a Disease Active 03-26 00:00: 00 [facility] Arthralgia of knee Arthralgia of knee Disease Active 03-26 00:00: 00 Overview: Formattin g of this note might be different from the original. recurrent pain and locking right knee since [employer]. [facility] Allergic rhinitis Allergic rhinitis Disease Active 03-26 00:00: 00 [facility] Abnormal liver function Abnormal liver function Disease Active 03-26 00:00: 00 [facility] Chest pain, unspecifie d type Chest pain, unspecifie d type Disease Active 9-06 00:00: 00 [facility] Obstructiv e sleep apnea syndrome Obstructiv e sleep apnea syndrome Disease Active 3-31 00:00: 00 [facility] Allergy, initial encounter Allergy, initial encounter Disease Active 2021-07 2-28 00:00: 00 [facility] Essential hypertensi on Essential hypertensi on Disease Active 9-13 00:00: 00 [facility] Health examinatio n of defined subpopulat ion Health examinatio n of defined subpopulat ion Disease Active 8- 00:00: 00 [facility] Elevated blood pressure reading in office without diagnosis of hypertensi on Elevated blood pressure reading in office without diagnosis of hypertensi on Disease Active - 00:00: 00 [facility] Acute bilateral low back pain without sciatica Acute bilateral low back pain without sciatica Disease Active 0 11-17 00:00: 00 [facility] Weakness of both hips Weakness of both hips Disease Active 11-17 00:00: 00 [facility] 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 Disease Active 11-17 00:00: 00 [facility] Weakness of both hips Weakness of both hips Disease Active 11-17 00:00: 00 [facility] Acute left-sided low back pain with left-sided sciatica Acute left-sided low back pain with left-sided sciatica Disease Active 10-28 00:00: 00 [facility] Mixed hyperlipid emia Mixed hyperlipid emia Disease Active 10-28 00:00: 00 [facility] Fatty liver Fatty liver Disease Active 2019-07 2- 00:00: 00 [facility] Vitamin D deficiency Vitamin D deficiency Disease Active 2019-07- 00:00: 00 [facility] Annular tear of lumbar disc Annular tear of lumbar disc Disease Active 0 04-02 00:00: 00 [facility] Left thigh pain Left thigh pain Disease Active 04-02 00:00: 00 [facility] DDD (degenerat sarika disc disease), lumbar DDD (degenerat sarika disc disease), lumbar Disease Active 15 00:00: 00 [facility] 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 Disease Active 15 00:00: 00 [facility] Myofascial pain Myofascial pain Disease Active 201911-23 00:00: 00 [facility] Cervical spondylosi s with radiculopa thy Cervical spondylosi s with radiculopa thy Disease Active 11-23 00:00: 00 [facility] Elevated hemoglobin Elevated hemoglobin Disease Active 0 3-10 00:00: 00 [facility] Crushing injury of finger Crushing injury of finger Disease Active 02-11 00:00: 00 [facility] Varicocele Varicocele Disease Active 11-30 00:00: 00 [facility] Depression Depression Disease Active 11-11 00:00: 00 [facility] Obesity (BMI 30-39.9) Obesity (BMI 30-39.9) Disease Active 11-21 00:00: 00 [facility] Hepatosple nomegaly Hepatosple nomegaly Disease Active 11-09 00:00: 00 [facility] Abnormal LFTs Abnormal LFTs Disease Active 11-09 00:00: 00 [facility] Anxiety disorder Anxiety disorder Disease Active 11-06 00:00: 00 [facility] Hyperchole sterolemia Hyperchole sterolemia Disease Active 11-06 00:00: 00 [facility] Anxiety Anxiety Disease Active 07-19 00:00: 00 [facility] Obesity Obesity Disease Active 07-19 00:00: 00 [facility] Hyperlipid emia Hyperlipid emia Disease Active 07-19 00:00: 00 [facility] Perineal pain in male Perineal pain in male Disease Resolve d 11-11 00:00: 00 2019-04-02 00:00:00 2019-04-02 21:42:55 [facility] Scrotal pain Scrotal pain Disease Resolve d 11-11 00:00: 00 2019-04-02 00:00:00 2019-04-02 21:42:57 [facility] Left wrist pain Left wrist pain Disease Resolve d 2016-07 205 00:00: 00 2019-04-02 00:00:00 2019-04-02 21:42:52 [facility] Allergies, Adverse Reactions, Alerts Allergy Name Allergy Type Status Severity Reaction(s) Onset Date Inactive Date Treating Clinician Comments Source Ibuprofe n Propensi ty to adverse reaction s Active Swelling 01-14 00:00: 00 Lips swell, taken it since episode of swelling without issues [facility] IBUPROFE N DRUG INGREDI Active Swelling 01-14 00:00: 00 [facility] NO KNOWN ALLERGIE S Drug Class Active [facility] Social History Social Habit Start Date Stop Date Quantity Comments Source History SDOH Alcohol Frequency [facility] History SDOH Alcohol Std Drinks [facility] History SDOH Alcohol Binge [facility] Gender identity Univ ers[facility] Alcoholic beverage intake 2024-02-22 00:00:00 2024-02-22 00:00:00 Current drinker of alcohol (finding) [facility] History of Social function 2024-01-06 00:00:00 2024-01-06 00:00:00 [facility] Alcohol intake 2023-11-16 00:00:00 2023-11-16 00:00:00 Current drinker of alcohol (finding) [facility] Exposure to SARS-CoV-2 (event) 2022-12-05 00:00:00 2022-12-15 13:01:00 Not sure [facility] Tobacco use and exposure 2022-03-16 00:00:00 2022-03-16 00:00:00 Smokeless tobacco non-user [facility] Alcohol Comment 2016-11-06 00:00:00 2016-11-06 00:00:00 socially [facility] Sex assigned at 1980 00:00:00 1980 00:00:00 [facility] Smoking Status Start Date Stop Date Source Never smoked tobacco [facility] Medications Ordered Medication Name Filled Medication Name Start Date Stop Date Current Medication? Ordering Clinician Indication Dosage Frequency Signature (SIG) Comments Components Source meloxicam 15 mg tablet 02-21 00:00: 00 Yes [id number] 15mg Take 1 tablet by mouth every morning. [facility] AZITHROMYCI N 250 mg tablet 01-30 00:00: 00 Yes [id number] 500MG on day 1, then 250mg days 2-5 [facility] albuterol 90 mcg/actuati on inhaler 01-25 00:00: 00 Yes [id number] 2{puff} Inhale 2 Puffs every 6 (six) hours as needed for Wheezing or Shortness of Breath. [facility] bromphenira mine-pseudo ephedrine-D M (BROMFED DM) 2-30-10 mg/5 mL syrup -10 00:00: 00 02-05 04:59 :00 Yes [id number] 10mL Take 10 mL by mouth 4 (four) times daily as needed for Congestion /Allergies for up to 10 days. [facility] ATORVASTATI N 20 mg tablet 01-20 00:00: 00 Yes [id number] TAKE 1 TABLET BY MOUTH EVERYDAY AT BEDTIME [facility] fluticasone propionate 50 mcg/actuati on nasal spray 01-18 00:00: 00 Yes [id number] 2{spray } Use 2 Sprays in each nostril in the morning. [facility] benzonatate 200 mg capsule 01-18 00:00: 00 Yes [id number] 200mg Take 1 capsule by mouth 3 (three) times daily as needed for Cough. [facility] predniSONE 20 mg tablet 01-18 00:00: 00 01-24 04:59 :00 Yes [id number] 40mg Take 2 tablets by mouth in the morning for 5 days. [facility] MELOXICAM 15 mg tablet 12-23 00:00: 00 02-21 00:00 :00 No [id number] 15mg TAKE 1 TABLET BY MOUTH EVERY DAY IN THE MORNING [facility] gabapentin 100 mg capsule 12-16 00:00: 00 Yes [id number] 100mg Take 1 capsule by mouth in the morning and 1 capsule at noon and 1 capsule in the evening. [facility] cyclobenzap rine 5 mg tablet 11-15 00:00: 00 Yes [id number] 5mg Take 1 tablet by mouth in the morning and 1 tablet at noon and 1 tablet in the evening. [facility] meloxicam (MOBIC) 15 mg tablet 11-15 00:00: 00 12-23 00:00 :00 No [id number] 15mg Take 1 tablet by mouth in the morning. [facility] dexamethaso ne (DECADRON) injection 10 mg 11-08 20:00: 00 11-08 19:03 :00 No [id number] 10mg 10 mg, Intramuscu lar, ONCE, 1 dose, On Wed11/09/23 at 1500, Routine [facility] ketorolac (TORADOL) injection 30 mg 11-08 19:45: 00 11-08 19:03 :00 No [id number] 30mg 30 mg, Intramuscu lar, ONCE, 1 dose, On Wed11/09/23 at 1445, Routine [facility] methocarbam oL 750 mg tablet 11-08 00:00: 00 11-16 04:59 :00 No [id number] 750mg Take 1 tablet by mouth 4 (four) times daily for 7 days. [facility] meloxicam (MOBIC) 15 mg tablet 11-08 00:00: 11-15 00:00 :00 No [id number] 15mg Take 1 tablet by mouth in the morning for 7 days. [facility] PROPRANOLOL 10 mg tablet 2022-07 00:00: 00 11-15 00:00 :00 No [id number] 10mg TAKE 1 TABLET BY MOUTH 2 (TWO) TIMES DAILY NEEDED FOR PAIN (SCALE 4-6). [facility] sulfur hexafluorid e microsphr (LUMASON) injection 5 mL 2022-07 21:45: 00 06-07 21:46 :00 No [id number] 5mL 5 mL, Intravenou s, ONCE, 1 dose, On Wed06/07/23 at 1545, Routine
tank crewmember approving Restricted medication : ELISE RITCHIE [facility] nitroglycer in (NITROSTAT) sublingual tablet 0.8 mg 2022-07 17:00: 00 05-26 16:05 :00 No [id number] .8mg 0.8 mg, Sublingual , ONCE, 1 dose, On Wed05/26/23 at 1100, Routine [facility] iopamidol (ISOVUE 370-500 mL) injection 80 mL 2022-07 16:11: 00 05-26 16:10 :00 No [id number] 80mL 80 mL, Intravenou s, ONCE, 1 dose, On Wed05/26/23 at 1030, Routine [facility] metoprolol tartrate (LOPRESSOR) tablet 100 mg 2022-07 15:35: 00 05-26 15:35 :00 No [id number] 100mg 100 mg, Oral, ONCE, 1 dose, On Wed05/26/23 at 1000, Routine [facility] ATORVASTATI N 20 mg tablet 2022-07 00:00: 00 01-20 00:00 :00 No [id number] TAKE 1 TABLET BY MOUTH EVERYDAY AT BEDTIME [facility] SERTraline (ZOLOFT) 50 mg tablet 03-24 00:00: 00 Yes [id number] 50mg Take 1 tablet by mouth in the morning. [facility] propranoloL 10 mg tablet 03-24 00:00: 00 06-21 00:00 :00 No [id number] 10mg Take 1 tablet by mouth 2 (two) times daily as needed for Pain (scale 4-6). [facility] acetaminoph en (TYLENOL) tablet 650 mg 03-19 13:30: 00 03-19 13:56 :00 No 650mg 650 mg, Oral, ONCE, 1 dose, On Wed03/19/23 at 0830, PEGGY [facility] meloxicam 7.5 mg tablet 12-09 00:00: 00 11-15 00:00 :00 No [id number] 7.5mg Take 1 tablet by mouth 2 (two) times daily as needed for Pain (scale 7-10). [facility] tiZANidine 4 mg tablet 12-09 00:00: 00 03-24 00:00 :00 No [id number] 4mg Take 1 tablet by mouth 3 (three) times daily as needed for Pain (scale 7-10). [facility] dexamethaso ne sod phos PF injection 15 mg 08-14 16:30: 00 08-14 15:24 :00 No [id number] 15mg [facility] NaCl 0.9% (NS) injection 4.5 mL 08-14 16:15: 00 08-14 15:25 :00 No [id number] 4.5mL [facility] lidocaine 1% (PF) (XYLOCAINE) injection 10 mL 08-14 16:15: 00 08-14 15:25 :00 No [id number] 10mL [facility] lactated ringers IV infusion 500 mL 08-14 15:30: 08-14 14:50 :00 No [id number] 500mL [facility] meloxicam 7.5 mg tablet 08-12 00:00: 00 03-26 00:00 :00 No [id number] 7.5mg Take 1 tablet by mouth 2 (two) times daily as needed for Pain (scale 4-6) for up to 180 doses. [facility] methocarbam oL 500 mg tablet 08-12 00:00: 00 11-11 04:59 :00 No [id number] 500mg Take 1 tablet by mouth at bedtime for 90 days. [facility] methylPREDN ISolone (MEDROL, VENITA,) 4 mg tablets 2021-07 00:00: 00 06-21 05:59 :00 No [id number] Take by mouth SEE-INSTRU CTIONS for 5 days. follow package directions [facility] ATORVASTATI N 20 mg tablet 2021-07 00:00: 00 Yes [id number] TAKE 1 TABLET BY MOUTH EVERYDAY AT BEDTIME [facility] BUSPIRONE 5 mg tablet 2021-07 0 00:00: 00 11-15 00:00 :00 No [id number] 5mg TAKE 1 TABLET BY MOUTH IN THE MORNING AND 1 TABLET IN THE EVENING. [facility] SERTraline (ZOLOFT) 50 mg tablet 03-31 00:00: 00 03-24 00:00 :00 No [id number] 50mg Take 1 tablet by mouth in the morning. [facility] busPIRone 5 mg tablet 03-31 00:00: 00 04-24 00:00 :00 No [id number] 5mg Take 1 tablet by mouth in the morning and 1 tablet in the evening. [facility] losartan 25 mg tablet 03-31 00:00: 00 03-31 00:00 :00 No [id number] 25mg Take 1 tablet by mouth in the morning. [facility] PANTOPRAZOL E 40 mg EC tablet 5-19 00:00: 00 06-15 00:00 :00 No [id number] TAKE 1 TABLET BY MOUTH EVERY DAY [facility] atorvastati n 20 mg tablet 4-12 00:00: 00 06-08 00:00 :00 No [id number] 20mg Take 1 tablet by mouth at bedtime. [facility] meclizine 25 mg tablet 2020-07 00:00: 00 01-14 00:00 :00 No [id number] 25mg Take 1 tablet by mouth every 6 (six) hours. [facility] KETOTIFEN FUMARATE, BULK, MISC 2020-0715 00:00: 00 01-14 00:00 :00 No [facility] EPINEPHrine 0.3 mg/0.3 mL injection 2020-07 00:00: 00 11-15 00:00 :00 No [facility] fexofenadin e 180 mg tablet 2020-07 00:00: 00 01-14 00:00 :00 No [id number] 360mg Take 2 tablets by mouth 2 (two) times daily. [facility] famotidine 20 mg tablet 2020-07 00:00: 00 10-28 00:00 :00 No [id number] 20mg Take 1 tablet by mouth 2 (two) times daily. [facility] naproxen 500 mg tablet 823 00:00: 00 04-03 00:00 :00 No [id number] 500mg Take 1 tablet by mouth 2 (two) times daily as needed for Pain (scale 4-6) for up to 21 days. [facility] atorvastati n 20 mg tablet 12-11 00:00: 00 10-28 00:00 :00 No [id number] 20mg Take 1 tablet by mouth at bedtime. [facility] atorvastati n 10 mg tablet 2019-07 00:00: 00 10-31 00:00 :00 No [id number] 10mg Take 1 tablet by mouth at bedtime. [facility] Immunizations Ordered Immunization Name Filled Immunization Name Date Status Comments Source Influenza Virus Vaccine Quad IM, Preserv and ABX Free 6 MO-64 YRS 2022-04-15 00:00:00 Completed [facility] Influenza Virus Vaccine Quad IM, Preserv and ABX Free 6 MO-64 YRS 2022-04-15 00:00:00 Completed [facility] Influenza Virus Vaccine Quad IM, Preserv and ABX Free 6 MO-64 YRS 2022-04-15 00:00:00 Completed [facility] Influenza Virus Vaccine Quad IM, Preserv and ABX Free 6 MO-64 YRS 2022-04-15 00:00:00 Completed [facility] Influenza Virus Vaccine Quad IM, Preserv and ABX Free 6 MO-64 YRS 2022-04-15 00:00:00 Completed [facility] Influenza Virus Vaccine Quad IM, Preserv and ABX Free 6 MO-64 YRS 2022-04-15 00:00:00 Completed [facility] Influenza Virus Vaccine Quad IM, Preserv and ABX Free 6 MO-64 YRS 2022-04-15 00:00:00 Completed [facility] Influenza Virus Vaccine Quad IM, Preserv and ABX Free 6 MO-64 YRS 2022-04-15 00:00:00 Completed [facility] Influenza Virus Vaccine Quad IM, Preserv and ABX Free 6 MO-64 YRS 2022-04-15 00:00:00 Completed [facility] Influenza Virus Vaccine Quad IM, Preserv and ABX Free 6 MO-64 YRS 2022-04-15 00:00:00 Completed [facility] Influenza Virus Vaccine Quad IM, Preserv and ABX Free 6 MO-64 YRS 2022-04-15 00:00:00 Completed [facility] Influenza Virus Vaccine Quad IM, Preserv and ABX Free 6 MO-64 YRS 2022-04-15 00:00:00 Completed [facility] Influenza Virus Vaccine Quad IM, Preserv and ABX Free 6 MO-64 YRS 2022-04-15 00:00:00 Completed [facility] Influenza Virus Vaccine Quad IM, Preserv and ABX Free 6 MO-64 YRS 2022-04-15 00:00:00 Completed [facility] Influenza Virus Vaccine Quad IM, Preserv and ABX Free 6 MO-64 YRS 2022-04-15 00:00:00 Completed [facility] Influenza Virus Vaccine Quad IM, Preserv and ABX Free 6 MO-64 YRS 2022-04-15 00:00:00 Completed [facility] Influenza Virus Vaccine Quad IM, Preserv and ABX Free 6 MO-64 YRS 2022-04-15 00:00:00 Completed [facility] Influenza Virus Vaccine Quad IM, Preserv and ABX Free 6 MO-64 YRS 2022-04-15 00:00:00 Completed [facility] Influenza Virus Vaccine Quad IM, Preserv and ABX Free 6 MO-64 YRS 2022-04-15 00:00:00 Completed [facility] Influenza Virus Vaccine Quad IM, Preserv and ABX Free 6 MO-64 YRS 2022-04-15 00:00:00 Completed [facility] Influenza Virus Vaccine Quad IM, Preserv and ABX Free 6 MO-64 YRS 2022-04-15 00:00:00 Completed [facility] Influenza Virus Vaccine Quad IM, Preserv and ABX Free 6 MO-64 YRS 2022-04-15 00:00:00 Completed [facility] Influenza Virus Vaccine Quad IM, Preserv and ABX Free 6 MO-64 YRS 2022-04-15 00:00:00 Completed [facility] Influenza Virus Vaccine Quad IM, Preserv and ABX Free 6 MO-64 YRS 2022-04-15 00:00:00 Completed [facility] Influenza Virus Vaccine Quad IM, Preserv and ABX Free 6 MO-64 YRS 2022-04-15 00:00:00 Completed [facility] Influenza Virus Vaccine Quad IM, Preserv and ABX Free 6 MO-64 YRS 2022-04-15 00:00:00 Completed [facility] Influenza Virus Vaccine Quad IM, Preserv and ABX Free 6 MO-64 YRS 2022-04-15 00:00:00 Completed [facility] Influenza Virus Vaccine Quad IM, Preserv and ABX Free 6 MO-64 YRS 2022-04-15 00:00:00 Completed [facility] Influenza Virus Vaccine Quad IM, Preserv and ABX Free 6 MO-64 YRS 2022-04-15 00:00:00 [facility]pleted [facility] [facility] Influenza Virus Vaccine Quad IM, Preserv and ABX Free 6 MO-64 YRS 2022-04-15 00:00:00 Completed [facility] Influenza Virus Vaccine Quad IM, Preserv and ABX Free 6 MO-64 YRS 2022-04-15 00:00:00 Completed [facility] Influenza Virus Vaccine Quad IM, Preserv and ABX Free 6 MO-64 YRS 2022-04-15 00:00:00 Completed [facility] Influenza Virus Vaccine Quad IM, Preserv and ABX Free 6 MO-64 YRS 2022-04-15 00:00:00 Completed [facility] Influenza Virus Vaccine Quad IM, Preserv and ABX Free 6 MO-64 YRS 2022-04-15 00:00:00 Completed [facility] Influenza Virus Vaccine Quad IM, Preserv and ABX Free 6 MO-64 YRS 2022-04-15 00:00:00 Completed [facility] Influenza Virus Vaccine Quad IM, Preserv and ABX Free 6 MO-64 YRS 2022-04-15 00:00:00 Completed [facility] Influenza Virus Vaccine Quad IM, Preserv and ABX Free 6 MO-64 YRS 2022-04-15 00:00:00 Completed [facility] Influenza Virus Vaccine Quad IM, Preserv and ABX Free 6 MO-64 YRS 2022-04-15 00:00:00 Completed [facility] Influenza Virus Vaccine Quad IM, Preserv and ABX Free 6 MO-64 YRS 2022-04-15 00:00:00 Completed [facility] Influenza Virus Vaccine Quad IM, Preserv and ABX Free 6 MO-64 YRS 2022-04-15 00:00:00 Completed [facility] Influenza Virus Vaccine Quad IM, Preserv and ABX Free 6 MO-64 YRS 2022-04-15 00:00:00 Completed [facility] Influenza Virus Vaccine Quad IM, Preserv and ABX Free 6 MO-64 YRS 2022-04-15 00:00:00 Completed [facility] Influenza Virus Vaccine Quad IM, Preserv and ABX Free 6 MO-64 YRS 2022-04-15 00:00:00 Completed [facility] Influenza Virus Vaccine Quad IM, Preserv and ABX Free 6 MO-64 YRS 2022-04-15 00:00:00 Completed [facility] Influenza Virus Vaccine Quad IM, Preserv and ABX Free 6 MO-64 YRS 2022-04-15 00:00:00 Completed [facility] Influenza Virus Vaccine Quad IM, Preserv and ABX Free 6 MO-64 YRS 2022-04-15 00:00:00 Completed [facility] Influenza Virus Vaccine Quad IM, Preserv and ABX Free 6 MO-64 YRS 2022-04-15 00:00:00 Completed [facility] Influenza Virus Vaccine Quad IM, Preserv and ABX Free 6 MO-64 YRS 2022-04-15 00:00:00 Completed [facility] Influenza Virus Vaccine Quad IM, Preserv and ABX Free 6 MO-64 YRS 2022-04-15 00:00:00 Completed [facility] Influenza Virus Vaccine Quad IM, Preserv and ABX Free 6 MO-64 YRS 2022-04-15 00:00:00 Completed [facility] Influenza Virus Vaccine Quad IM, Preserv and ABX Free 6 MO-64 YRS 2022-04-15 00:00:00 Completed [facility] Influenza Virus Vaccine Quad IM, Preserv and ABX Free 6 MO-64 YRS 2022-04-15 00:00:00 Completed [facility] Influenza Virus Vaccine Quad IM, Preserv and ABX Free 6 MO-64 YRS 2022-04-15 00:00:00 Completed [facility] Influenza Virus Vaccine Quad IM, Preserv and ABX Free 6 MO-64 YRS 2022-04-15 00:00:00 Completed [facility] Influenza Virus Vaccine Quad IM, Preserv and ABX Free 6 MO-64 YRS 2022-04-15 00:00:00 Completed [facility] Influenza Virus Vaccine Quad IM, Preserv and ABX Free 6 MO-64 YRS 2022-04-15 00:00:00 Completed [facility] Influenza Virus Vaccine Quad IM, Preserv and ABX Free 6 MO-64 YRS 2022-04-15 00:00:00 Completed [facility] Influenza Virus Vaccine Quad IM, Preserv and ABX Free 6 MO-64 YRS 2022-04-15 00:00:00 Completed [facility] Influenza Virus Vaccine Quad IM, Preserv and ABX Free 6 MO-64 YRS 2022-04-15 00:00:00 Completed [facility] Influenza Virus Vaccine Quad IM, Preserv and ABX Free 6 MO-64 YRS 2022-04-15 00:00:00 Completed [facility] Influenza Virus Vaccine Quad IM, Preserv and ABX Free 6 MO-64 YRS 2022-04-15 00:00:00 Completed [facility] Influenza Virus Vaccine Quad IM, Preserv and ABX Free 6 MO-64 YRS 2022-04-15 00:00:00 Completed [facility] Influenza Virus Vaccine Quad IM, Preserv and ABX Free 6 MO-64 YRS 2022-04-15 00:00:00 Completed [facility] Influenza Virus Vaccine Quad IM, Preserv and ABX Free 6 MO-64 YRS 2022-04-15 00:00:00 Completed [facility] Influenza Virus Vaccine Quad IM, Preserv and ABX Free 6 MO-64 YRS 2022-04-15 00:00:00 Completed [facility] Influenza Virus Vaccine Quad IM, Preserv and ABX Free 6 MO-64 YRS 2022-04-15 00:00:00 Completed [facility] Influenza Virus Vaccine Quad IM, Preserv and ABX Free 6 MO-64 YRS 2022-04-15 00:00:00 Completed [facility] Influenza Virus Vaccine Quad IM, Preserv and ABX Free 6 MO-64 YRS 2022-04-15 00:00:00 Completed [facility] Influenza Virus Vaccine Quad IM, Preserv and ABX Free 6 MO-64 YRS 2022-04-15 00:00:00 Completed [facility] Influenza Virus Vaccine Quad IM, Preserv and ABX Free 6 MO-64 YRS 2022-04-15 00:00:00 Completed [facility] Influenza Virus Vaccine Quad IM, Preserv and ABX Free 6 MO-64 YRS 2022-04-15 00:00:00 Completed [facility] Influenza Virus Vaccine Quad IM, Preserv and ABX Free 6 MO-64 YRS 2022-04-15 00:00:00 Completed [facility] Influenza Virus Vaccine Quad IM, Preserv and ABX Free 6 MO-64 YRS 2022-04-15 00:00:00 Completed [facility] Influenza Virus Vaccine Quad IM, Preserv and ABX Free 6 MO-64 YRS 2022-04-15 00:00:00 Completed [facility] Influenza Virus Vaccine Quad IM, Preserv and ABX Free 6 MO-64 YRS 2022-04-15 00:00:00 Completed [facility] Influenza Virus Vaccine Quad IM, Preserv and ABX Free 6 MO-64 YRS 2022-04-15 00:00:00 Completed [facility] Influenza Virus Vaccine Quad IM, Preserv and ABX Free 6 MO-64 YRS 2022-04-15 00:00:00 Completed [facility] Influenza Virus Vaccine Quad IM, Preserv and ABX Free 6 MO-64 YRS 2022-04-15 00:00:00 Completed [facility] Influenza Virus Vaccine Quad IM, Preserv and ABX Free 6 MO-64 YRS 2022-04-15 00:00:00 Completed [facility] Influenza Virus Vaccine Quad IM, Preserv and ABX Free 6 MO-64 YRS 2022-04-15 00:00:00 Completed [facility] Influenza Virus Vaccine Quad IM, Preserv and ABX Free 6 MO-64 YRS (FLUCELVAX) 2022-04-15 00:00:00 Completed [facility] Influenza Virus Vaccine Quad IM, Preserv and ABX Free 6 MO-64 YRS (FLUCELVAX) 2022-04-15 00:00:00 Completed [facility] Influenza Virus Vaccine Quad IM, Preserv and ABX Free 6 MO-64 YRS (FLUCELVAX) 2022-04-15 00:00:00 Completed [facility] Influenza Virus Vaccine Quad IM, Preserv and ABX Free 6 MO-64 YRS (FLUCELVAX) 2022-04-15 00:00:00 Completed [facility] Influenza Virus Vaccine Quad IM, Preserv and ABX Free 6 MO-64 YRS (FLUCELVAX) 2022-04-15 00:00:00 Completed [facility] Influenza Virus Vaccine Quad IM, Preserv and ABX Free 6 MO-64 YRS (FLUCELVAX) 2022-04-15 00:00:00 Completed [facility] Influenza Virus Vaccine Quad IM, Preserv and ABX Free 6 MO-64 YRS (FLUCELVAX) 2022-04-15 00:00:00 Completed [facility] Influenza Virus Vaccine Quad IM, Preserv and ABX Free 6 MO-64 YRS (FLUCELVAX) 2022-04-15 00:00:00 Completed [facility] Influenza Virus Vaccine Quad IM, Preserv and ABX Free 6 MO-64 YRS (FLUCELVAX) 2022-04-15 00:00:00 Completed [facility] Influenza Virus Vaccine Quad IM, Preserv and ABX Free 6 MO-64 YRS (FLUCELVAX) 2022-04-15 00:00:00 Completed [facility] Influenza Virus Vaccine Quad IM, Preserv and ABX Free 6 MO-64 YRS (FLUCELVAX) 2022-04-15 00:00:00 Completed [facility] Influenza Virus Vaccine Quad IM, Preserv and ABX Free 6 MO-64 YRS (FLUCELVAX) 2022-04-15 00:00:00 Completed [facility] Influenza Virus Vaccine Quad IM, Preserv and ABX Free 6 MO-64 YRS (FLUCELVAX) 2022-04-15 00:00:00 Completed [facility] SARS-COV-2 COVID-19 PFIZER VACCINE 2020-10-26 00:00:00 Completed [facility] SARS-COV-2 COVID-19 PFIZER VACCINE 2020-10-26 00:00:00 Completed [facility] SARS-COV-2 COVID-19 PFIZER VACCINE 2020-10-26 00:00:00 Completed [facility] SARS-COV-2 COVID-19 PFIZER VACCINE 2020-10-26 00:00:00 Completed [facility] SARS-COV-2 COVID-19 PFIZER VACCINE 2020-10-26 00:00:00 Completed [facility] SARS-COV-2 COVID-19 PFIZER VACCINE 2020-10-26 00:00:00 Completed [facility] SARS-COV-2 COVID-19 PFIZER VACCINE 2020-10-26 00:00:00 Completed [facility] SARS-COV-2 COVID-19 PFIZER VACCINE 2020-10-26 00:00:00 Completed [facility] SARS-COV-2 COVID-19 PFIZER VACCINE 2020-10-26 00:00:00 Completed [facility] SARS-COV-2 COVID-19 PFIZER VACCINE 2020-10-26 00:00:00 Completed [facility] SARS-COV-2 COVID-19 PFIZER VACCINE 2020-10-26 00:00:00 Completed [facility] SARS-COV-2 COVID-19 PFIZER VACCINE 2020-10-26 00:00:00 Completed [facility] SARS-COV-2 COVID-19 PFIZER VACCINE 2020-10-26 00:00:00 Completed [facility] SARS-COV-2 COVID-19 PFIZER VACCINE 2020-10-26 00:00:00 Completed [facility] SARS-COV-2 COVID-19 PFIZER VACCINE 2020-10-26 00:00:00 Completed [facility] SARS-COV-2 COVID-19 PFIZER VACCINE 2020-10-26 00:00:00 Completed [facility] SARS-COV-2 COVID-19 PFIZER VACCINE 2020-10-26 00:00:00 Completed [facility] SARS-COV-2 COVID-19 PFIZER VACCINE 2020-10-26 00:00:00 Completed [facility] SARS-COV-2 COVID-19 PFIZER VACCINE 2020-10-26 00:00:00 Completed [facility] SARS-COV-2 COVID-19 PFIZER VACCINE 2020-10-26 00:00:00 Completed [facility] SARS-COV-2 COVID-19 PFIZER VACCINE 2020-10-26 00:00:00 Completed [facility] SARS-COV-2 COVID-19 PFIZER VACCINE 2020-10-26 00:00:00 Completed [facility] SARS-COV-2 COVID-19 PFIZER VACCINE 2020-10-26 00:00:00 Completed [facility] SARS-COV-2 COVID-19 PFIZER VACCINE 2020-10-26 00:00:00 Completed [facility] SARS-COV-2 COVID-19 PFIZER VACCINE 2020-10-26 00:00:00 Completed [facility] SARS-COV-2 COVID-19 PFIZER VACCINE 2020-10-26 00:00:00 Completed [facility] SARS-COV-2 COVID-19 PFIZER VACCINE 2020-10-26 00:00:00 Completed [facility] SARS-COV-2 COVID-19 PFIZER VACCINE 2020-10-26 00:00:00 Completed [facility] SARS-COV-2 COVID-19 PFIZER VACCINE 2020-10-26 00:00:00 Completed [facility] SARS-COV-2 COVID-19 PFIZER VACCINE 2020-10-26 00:00:00 Completed [facility] SARS-COV-2 COVID-19 PFIZER VACCINE 2020-10-26 00:00:00 Completed [facility] SARS-COV-2 COVID-19 PFIZER VACCINE 2020-10-26 00:00:00 Completed [facility] SARS-COV-2 COVID-19 PFIZER VACCINE 2020-10-26 00:00:00 Completed [facility] SARS-COV-2 COVID-19 PFIZER VACCINE 2020-10-26 00:00:00 Completed [facility] SARS-COV-2 COVID-19 PFIZER VACCINE 2020-10-26 00:00:00 Completed [facility] SARS-COV-2 COVID-19 PFIZER VACCINE 2020-10-26 00:00:00 Completed [facility] SARS-COV-2 COVID-19 PFIZER VACCINE 2020-10-26 00:00:00 Completed [facility] SARS-COV-2 COVID-19 PFIZER VACCINE 2020-10-26 00:00:00 Completed [facility] SARS-COV-2 COVID-19 PFIZER VACCINE 2020-10-26 00:00:00 Completed [facility] SARS-COV-2 COVID-19 PFIZER VACCINE 2020-10-26 00:00:00 Completed [facility] SARS-COV-2 COVID-19 PFIZER VACCINE 2020-10-26 00:00:00 Completed [facility] SARS-COV-2 COVID-19 PFIZER VACCINE 2020-10-26 00:00:00 Completed [facility] SARS-COV-2 COVID-19 PFIZER VACCINE 2020-10-26 00:00:00 Completed [facility] SARS-COV-2 COVID-19 PFIZER VACCINE 2020-10-26 00:00:00 Completed [facility] SARS-COV-2 COVID-19 PFIZER VACCINE 2020-10-26 00:00:00 Completed [facility] SARS-COV-2 COVID-19 PFIZER VACCINE 2020-10-26 00:00:00 Completed [facility] SARS-COV-2 COVID-19 PFIZER VACCINE 2020-10-26 00:00:00 Completed [facility] SARS-COV-2 COVID-19 PFIZER VACCINE 2020-10-26 00:00:00 Completed [facility] SARS-COV-2 COVID-19 PFIZER VACCINE 2020-10-26 00:00:00 Completed [facility] SARS-COV-2 COVID-19 PFIZER VACCINE 2020-10-26 00:00:00 Completed [facility] SARS-COV-2 COVID-19 PFIZER VACCINE 2020-10-26 00:00:00 Completed [facility] SARS-COV-2 COVID-19 PFIZER VACCINE 2020-10-26 00:00:00 Completed [facility] SARS-COV-2 COVID-19 PFIZER VACCINE 2020-10-26 00:00:00 Completed [facility] SARS-COV-2 COVID-19 PFIZER VACCINE 2020-10-26 00:00:00 Completed [facility] SARS-COV-2 COVID-19 PFIZER VACCINE 2020-10-26 00:00:00 Completed [facility] SARS-COV-2 COVID-19 PFIZER VACCINE 2020-10-26 00:00:00 Completed [facility] SARS-COV-2 COVID-19 PFIZER VACCINE 2020-10-26 00:00:00 Completed [facility] SARS-COV-2 COVID-19 PFIZER VACCINE 2020-10-26 00:00:00 Completed [facility] SARS-COV-2 COVID-19 PFIZER VACCINE 2020-10-26 00:00:00 Completed [facility] SARS-COV-2 COVID-19 PFIZER VACCINE 2020-10-26 00:00:00 Completed [facility] SARS-COV-2 COVID-19 PFIZER VACCINE 2020-10-26 00:00:00 Completed [facility] SARS-COV-2 COVID-19 PFIZER VACCINE 2020-10-26 00:00:00 Completed [facility] SARS-COV-2 COVID-19 PFIZER VACCINE 2020-10-26 00:00:00 Completed [facility] SARS-COV-2 COVID-19 PFIZER VACCINE 2020-10-26 00:00:00 Completed [facility] SARS-COV-2 COVID-19 PFIZER VACCINE 2020-10-26 00:00:00 Completed [facility] SARS-COV-2 COVID-19 PFIZER VACCINE 2020-10-26 00:00:00 Completed [facility] SARS-COV-2 COVID-19 PFIZER VACCINE 2020-10-26 00:00:00 Completed [facility] SARS-COV-2 COVID-19 PFIZER VACCINE 2020-10-26 00:00:00 Completed [facility] SARS-COV-2 COVID-19 PFIZER VACCINE 2020-10-26 00:00:00 Completed [facility] SARS-COV-2 COVID-19 PFIZER VACCINE 2020-10-26 00:00:00 Completed [facility] SARS-COV-2 COVID-19 PFIZER VACCINE 2020-10-26 00:00:00 Completed [facility] SARS-COV-2 COVID-19 PFIZER VACCINE 2020-10-26 00:00:00 Completed [facility] SARS-COV-2 COVID-19 PFIZER VACCINE 2020-10-26 00:00:00 Completed [facility] SARS-COV-2 COVID-19 PFIZER VACCINE 2020-10-26 00:00:00 Completed [facility] SARS-COV-2 COVID-19 PFIZER VACCINE 2020-10-26 00:00:00 Completed [facility] SARS-COV-2 COVID-19 PFIZER VACCINE 2020-10-26 00:00:00 Completed [facility] SARS-COV-2 COVID-19 PFIZER VACCINE 2020-10-26 00:00:00 Completed [facility] SARS-COV-2 COVID-19 PFIZER VACCINE 2020-10-26 00:00:00 Completed [facility] SARS-COV-2 COVID-19 PFIZER VACCINE 2020-10-26 00:00:00 Completed [facility] SARS-COV-2 COVID-19 PFIZER VACCINE 2020-10-26 00:00:00 Completed [facility] SARS-COV-2 COVID-19 PFIZER VACCINE 2020-10-26 00:00:00 Completed [facility] SARS-COV-2 COVID-19 PFIZER VACCINE 2020-10-26 00:00:00 Completed [facility] SARS-COV-2 COVID-19 PFIZER VACCINE 2020-10-26 00:00:00 Completed [facility] SARS-COV-2 COVID-19 PFIZER VACCINE 2020-10-26 00:00:00 Completed [facility] SARS-COV-2 COVID-19 PFIZER VACCINE 2020-10-26 00:00:00 Completed [facility] SARS-COV-2 COVID-19 PFIZER VACCINE 2020-10-26 00:00:00 Completed [facility] SARS-COV-2 COVID-19 PFIZER VACCINE 2020-10-26 00:00:00 Completed [facility] SARS-COV-2 COVID-19 PFIZER VACCINE 2020-10-26 00:00:00 Completed [facility] SARS-COV-2 COVID-19 PFIZER VACCINE 2020-10-26 00:00:00 Completed [facility] SARS-COV-2 COVID-19 PFIZER VACCINE 2020-10-26 00:00:00 Completed [facility] SARS-COV-2 COVID-19 PFIZER VACCINE 2020-10-26 00:00:00 Completed [facility] SARS-COV-2 COVID-19 PFIZER VACCINE 2020-10-26 00:00:00 Completed [facility] SARS-COV-2 COVID-19 PFIZER VACCINE 2020-10-26 00:00:00 Completed [facility] SARS-COV-2 COVID-19 PFIZER VACCINE 2020-10-26 00:00:00 Completed [facility] SARS-COV-2 COVID-19 PFIZER VACCINE 2020-10-26 00:00:00 Completed [facility] SARS-COV-2 COVID-19 PFIZER VACCINE 2020-10-05 00:00:00 Completed [facility] SARS-COV-2 COVID-19 PFIZER VACCINE 2020-10-05 00:00:00 Completed [facility] SARS-COV-2 COVID-19 PFIZER VACCINE 2020-10-05 00:00:00 Completed [facility] SARS-COV-2 COVID-19 PFIZER VACCINE 2020-10-05 00:00:00 Completed [facility] SARS-COV-2 COVID-19 PFIZER VACCINE 2020-10-05 00:00:00 Completed [facility] SARS-COV-2 COVID-19 PFIZER VACCINE 2020-10-05 00:00:00 Completed [facility] SARS-COV-2 COVID-19 PFIZER VACCINE 2020-10-05 00:00:00 Completed [facility] SARS-COV-2 COVID-19 PFIZER VACCINE 2020-10-05 00:00:00 Completed [facility] SARS-COV-2 COVID-19 PFIZER VACCINE 2020-10-05 00:00:00 Completed [facility] SARS-COV-2 COVID-19 PFIZER VACCINE 2020-10-05 00:00:00 Completed [facility] SARS-COV-2 COVID-19 PFIZER VACCINE 2020-10-05 00:00:00 Completed [facility] SARS-COV-2 COVID-19 PFIZER VACCINE 2020-10-05 00:00:00 Completed [facility] SARS-COV-2 COVID-19 PFIZER VACCINE 2020-10-05 00:00:00 Completed [facility] SARS-COV-2 COVID-19 PFIZER VACCINE 2020-10-05 00:00:00 Completed [facility] SARS-COV-2 COVID-19 PFIZER VACCINE 2020-10-05 00:00:00 Completed [facility] SARS-COV-2 COVID-19 PFIZER VACCINE 2020-10-05 00:00:00 Completed [facility] SARS-COV-2 COVID-19 PFIZER VACCINE 2020-10-05 00:00:00 Completed [facility] SARS-COV-2 COVID-19 PFIZER VACCINE 2020-10-05 00:00:00 Completed [facility] SARS-COV-2 COVID-19 PFIZER VACCINE 2020-10-05 00:00:00 Completed [facility] SARS-COV-2 COVID-19 PFIZER VACCINE 2020-10-05 00:00:00 Completed [facility] SARS-COV-2 COVID-19 PFIZER VACCINE 2020-10-05 00:00:00 Completed [facility] SARS-COV-2 COVID-19 PFIZER VACCINE 2020-10-05 00:00:00 Completed [facility] SARS-COV-2 COVID-19 PFIZER VACCINE 2020-10-05 00:00:00 Completed [facility] SARS-COV-2 COVID-19 PFIZER VACCINE 2020-10-05 00:00:00 Completed [facility] SARS-COV-2 COVID-19 PFIZER VACCINE 2020-10-05 00:00:00 Completed [facility] SARS-COV-2 COVID-19 PFIZER VACCINE 2020-10-05 00:00:00 Completed [facility] SARS-COV-2 COVID-19 PFIZER VACCINE 2020-10-05 00:00:00 Completed [facility] SARS-COV-2 COVID-19 PFIZER VACCINE 2020-10-05 00:00:00 Completed [facility] SARS-COV-2 COVID-19 PFIZER VACCINE 2020-10-05 00:00:00 Completed [facility] SARS-COV-2 COVID-19 PFIZER VACCINE 2020-10-05 00:00:00 Completed [facility] SARS-COV-2 COVID-19 PFIZER VACCINE 2020-10-05 00:00:00 Completed [facility] SARS-COV-2 COVID-19 PFIZER VACCINE 2020-10-05 00:00:00 Completed [facility] SARS-COV-2 COVID-19 PFIZER VACCINE 2020-10-05 00:00:00 Completed [facility] SARS-COV-2 COVID-19 PFIZER VACCINE 2020-10-05 00:00:00 Completed [facility] SARS-COV-2 COVID-19 PFIZER VACCINE 2020-10-05 00:00:00 Completed [facility] SARS-COV-2 COVID-19 PFIZER VACCINE 2020-10-05 00:00:00 Completed [facility] SARS-COV-2 COVID-19 PFIZER VACCINE 2020-10-05 00:00:00 Completed [facility] SARS-COV-2 COVID-19 PFIZER VACCINE 2020-10-05 00:00:00 Completed [facility] SARS-COV-2 COVID-19 PFIZER VACCINE 2020-10-05 00:00:00 Completed [facility] SARS-COV-2 COVID-19 PFIZER VACCINE 2020-10-05 00:00:00 Completed [facility] SARS-COV-2 COVID-19 PFIZER VACCINE 2020-10-05 00:00:00 Completed [facility] SARS-COV-2 COVID-19 PFIZER VACCINE 2020-10-05 00:00:00 Completed [facility] SARS-COV-2 COVID-19 PFIZER VACCINE 2020-10-05 00:00:00 Completed [facility] SARS-COV-2 COVID-19 PFIZER VACCINE 2020-10-05 00:00:00 Completed [facility] SARS-COV-2 COVID-19 PFIZER VACCINE 2020-10-05 00:00:00 Completed [facility] SARS-COV-2 COVID-19 PFIZER VACCINE 2020-10-05 00:00:00 Completed [facility] SARS-COV-2 COVID-19 PFIZER VACCINE 2020-10-05 00:00:00 Completed [facility] SARS-COV-2 COVID-19 PFIZER VACCINE 2020-10-05 00:00:00 Completed [facility] SARS-COV-2 COVID-19 PFIZER VACCINE 2020-10-05 00:00:00 Completed [facility] SARS-COV-2 COVID-19 PFIZER VACCINE 2020-10-05 00:00:00 Completed [facility] SARS-COV-2 COVID-19 PFIZER VACCINE 2020-10-05 00:00:00 Completed [facility] SARS-COV-2 COVID-19 PFIZER VACCINE 2020-10-05 00:00:00 Completed [facility] SARS-COV-2 COVID-19 PFIZER VACCINE 2020-10-05 00:00:00 Completed [facility] SARS-COV-2 COVID-19 PFIZER VACCINE 2020-10-05 00:00:00 Completed [facility] SARS-COV-2 COVID-19 PFIZER VACCINE 2020-10-05 00:00:00 Completed [facility] SARS-COV-2 COVID-19 PFIZER VACCINE 2020-10-05 00:00:00 Completed [facility] SARS-COV-2 COVID-19 PFIZER VACCINE 2020-10-05 00:00:00 Completed [facility] SARS-COV-2 COVID-19 PFIZER VACCINE 2020-10-05 00:00:00 Completed [facility] SARS-COV-2 COVID-19 PFIZER VACCINE 2020-10-05 00:00:00 Completed [facility] SARS-COV-2 COVID-19 PFIZER VACCINE 2020-10-05 00:00:00 Completed [facility] SARS-COV-2 COVID-19 PFIZER VACCINE 2020-10-05 00:00:00 Completed [facility] SARS-COV-2 COVID-19 PFIZER VACCINE 2020-10-05 00:00:00 Completed [facility] SARS-COV-2 COVID-19 PFIZER VACCINE 2020-10-05 00:00:00 Completed [facility] SARS-COV-2 COVID-19 PFIZER VACCINE 2020-10-05 00:00:00 Completed [facility] SARS-COV-2 COVID-19 PFIZER VACCINE 2020-10-05 00:00:00 Completed [facility] SARS-COV-2 COVID-19 PFIZER VACCINE 2020-10-05 00:00:00 Completed [facility] SARS-COV-2 COVID-19 PFIZER VACCINE 2020-10-05 00:00:00 Completed [facility] SARS-COV-2 COVID-19 PFIZER VACCINE 2020-10-05 00:00:00 Completed [facility] SARS-COV-2 COVID-19 PFIZER VACCINE 2020-10-05 00:00:00 Completed [facility] SARS-COV-2 COVID-19 PFIZER VACCINE 2020-10-05 00:00:00 Completed [facility] SARS-COV-2 COVID-19 PFIZER VACCINE 2020-10-05 00:00:00 Completed [facility] SARS-COV-2 COVID-19 PFIZER VACCINE 2020-10-05 00:00:00 Completed [facility] SARS-COV-2 COVID-19 PFIZER VACCINE 2020-10-05 00:00:00 Completed [facility] SARS-COV-2 COVID-19 PFIZER VACCINE 2020-10-05 00:00:00 Completed [facility] SARS-COV-2 COVID-19 PFIZER VACCINE 2020-10-05 00:00:00 Completed [facility] SARS-COV-2 COVID-19 PFIZER VACCINE 2020-10-05 00:00:00 Completed [facility] SARS-COV-2 COVID-19 PFIZER VACCINE 2020-10-05 00:00:00 Completed [facility] SARS-COV-2 COVID-19 PFIZER VACCINE 2020-10-05 00:00:00 Completed [facility] SARS-COV-2 COVID-19 PFIZER VACCINE 2020-10-05 00:00:00 Completed [facility] SARS-COV-2 COVID-19 PFIZER VACCINE 2020-10-05 00:00:00 Completed [facility] SARS-COV-2 COVID-19 PFIZER VACCINE 2020-10-05 00:00:00 Completed [facility] SARS-COV-2 COVID-19 PFIZER VACCINE 2020-10-05 00:00:00 Completed [facility] SARS-COV-2 COVID-19 PFIZER VACCINE 2020-10-05 00:00:00 Completed [facility] SARS-COV-2 COVID-19 PFIZER VACCINE 2020-10-05 00:00:00 Completed [facility] SARS-COV-2 COVID-19 PFIZER VACCINE 2020-10-05 00:00:00 Completed [facility] SARS-COV-2 COVID-19 PFIZER VACCINE 2020-10-05 00:00:00 Completed [facility] SARS-COV-2 COVID-19 PFIZER VACCINE 2020-10-05 00:00:00 Completed [facility] SARS-COV-2 COVID-19 PFIZER VACCINE 2020-10-05 00:00:00 Completed [facility] SARS-COV-2 COVID-19 PFIZER VACCINE 2020-10-05 00:00:00 Completed [facility] SARS-COV-2 COVID-19 PFIZER VACCINE 2020-10-05 00:00:00 Completed [facility] SARS-COV-2 COVID-19 PFIZER VACCINE 2020-10-05 00:00:00 Completed [facility] SARS-COV-2 COVID-19 PFIZER VACCINE 2020-10-05 00:00:00 Completed [facility] SARS-COV-2 COVID-19 PFIZER VACCINE 2020-10-05 00:00:00 Completed [facility] SARS-COV-2 COVID-19 PFIZER VACCINE 2020-10-05 00:00:00 Completed [facility] SARS-COV-2 COVID-19 PFIZER VACCINE 2020-10-05 00:00:00 Completed [facility] Influenza Virus Vaccine Quad .5 mL IM 6+ MO 2020-05-30 00:00:00 Completed [facility] Pneumococcal Polysaccharide, PPSV23 (PNEUMOVAX) 2020-05-30 00:00:00 Completed [facility] Influenza Virus Vaccine Quad .5 mL IM 6+ MO 2020-05-30 00:00:00 Completed [facility] Pneumococcal Polysaccharide, PPSV23 (PNEUMOVAX) 2020-05-30 00:00:00 Completed [facility] Influenza Virus Vaccine Quad .5 mL IM 6+ MO 2020-05-30 00:00:00 Completed [facility] Pneumococcal Polysaccharide, PPSV23 (PNEUMOVAX) 2020-05-30 00:00:00 Completed [facility] Influenza Virus Vaccine Quad .5 mL IM 6+ MO 2020-05-30 00:00:00 Completed [facility] Pneumococcal Polysaccharide, PPSV23 (PNEUMOVAX) 2020-05-30 00:00:00 Completed [facility] Influenza Virus Vaccine Quad .5 mL IM 6+ MO 2020-05-30 00:00:00 Completed [facility] Pneumococcal Polysaccharide, PPSV23 (PNEUMOVAX) 2020-05-30 00:00:00 Completed [facility] Influenza Virus Vaccine Quad .5 mL IM 6+ MO 2020-05-30 00:00:00 Completed [facility] Pneumococcal Polysaccharide, PPSV23 (PNEUMOVAX) 2020-05-30 00:00:00 Completed [facility] Influenza Virus Vaccine Quad .5 mL IM 6+ MO 2020-05-30 00:00:00 Completed [facility] Pneumococcal Polysaccharide, PPSV23 (PNEUMOVAX) 2020-05-30 00:00:00 Completed [facility] Influenza Virus Vaccine Quad .5 mL IM 6+ MO 2020-05-30 00:00:00 Completed [facility] Pneumococcal Polysaccharide, PPSV23 (PNEUMOVAX) 2020-05-30 00:00:00 Completed [facility] Influenza Virus Vaccine Quad .5 mL IM 6+ MO 2020-05-30 00:00:00 Completed [facility] Pneumococcal Polysaccharide, PPSV23 (PNEUMOVAX) 2020-05-30 00:00:00 Completed [facility] Influenza Virus Vaccine Quad .5 mL IM 6+ MO 2020-05-30 00:00:00 Completed [facility] Pneumococcal Polysaccharide, PPSV23 (PNEUMOVAX) 2020-05-30 00:00:00 Completed [facility] Influenza Virus Vaccine Quad .5 mL IM 6+ MO 2020-05-30 00:00:00 Completed [facility] Pneumococcal Polysaccharide, PPSV23 (PNEUMOVAX) 2020-05-30 00:00:00 Completed [facility] Influenza Virus Vaccine Quad .5 mL IM 6+ MO 2020-05-30 00:00:00 Completed [facility] Pneumococcal Polysaccharide, PPSV23 (PNEUMOVAX) 2020-05-30 00:00:00 Completed [facility] Influenza Virus Vaccine Quad .5 mL IM 6+ MO 2020-05-30 00:00:00 Completed [facility] Pneumococcal Polysaccharide, PPSV23 (PNEUMOVAX) 2020-05-30 00:00:00 Completed [facility] Influenza Virus Vaccine Quad .5 mL IM 6+ MO 2020-05-30 00:00:00 Completed [facility] Pneumococcal Polysaccharide, PPSV23 (PNEUMOVAX) 2020-05-30 00:00:00 Completed [facility] Influenza Virus Vaccine Quad .5 mL IM 6+ MO 2020-05-30 00:00:00 Completed [facility] Pneumococcal Polysaccharide, PPSV23 (PNEUMOVAX) 2020-05-30 00:00:00 Completed [facility] Influenza Virus Vaccine Quad .5 mL IM 6+ MO 2020-05-30 00:00:00 Completed [facility] Pneumococcal Polysaccharide, PPSV23 (PNEUMOVAX) 2020-05-30 00:00:00 Completed [facility] Influenza Virus Vaccine Quad .5 mL IM 6+ MO 2020-05-30 00:00:00 Completed [facility] Pneumococcal Polysaccharide, PPSV23 (PNEUMOVAX) 2020-05-30 00:00:00 Completed [facility] Influenza Virus Vaccine Quad .5 mL IM 6+ MO 2020-05-30 00:00:00 Completed [facility] Pneumococcal Polysaccharide, PPSV23 (PNEUMOVAX) 2020-05-30 00:00:00 Completed [facility] Influenza Virus Vaccine Quad .5 mL IM 6+ MO 2020-05-30 00:00:00 Completed [facility] Pneumococcal Polysaccharide, PPSV23 (PNEUMOVAX) 2020-05-30 00:00:00 Completed [facility] Influenza Virus Vaccine Quad .5 mL IM 6+ MO 2020-05-30 00:00:00 Completed [facility] Pneumococcal Polysaccharide, PPSV23 (PNEUMOVAX) 2020-05-30 00:00:00 Completed [facility] Influenza Virus Vaccine Quad .5 mL IM 6+ MO 2020-05-30 00:00:00 Completed [facility] Pneumococcal Polysaccharide, PPSV23 (PNEUMOVAX) 2020-05-30 00:00:00 Completed [facility] Influenza Virus Vaccine Quad .5 mL IM 6+ MO 2020-05-30 00:00:00 Completed [facility] Pneumococcal Polysaccharide, PPSV23 (PNEUMOVAX) 2020-05-30 00:00:00 Completed [facility] Influenza Virus Vaccine Quad .5 mL IM 6+ MO 2020-05-30 00:00:00 Completed [facility] Pneumococcal Polysaccharide, PPSV23 (PNEUMOVAX) 2020-05-30 00:00:00 Completed [facility] Influenza Virus Vaccine Quad .5 mL IM 6+ MO 2020-05-30 00:00:00 Completed [facility] Pneumococcal Polysaccharide, PPSV23 (PNEUMOVAX) 2020-05-30 00:00:00 Completed [facility] Influenza Virus Vaccine Quad .5 mL IM 6+ MO 2020-05-30 00:00:00 Completed [facility] Pneumococcal Polysaccharide, PPSV23 (PNEUMOVAX) 2020-05-30 00:00:00 Completed [facility] Influenza Virus Vaccine Quad .5 mL IM 6+ MO 2020-05-30 00:00:00 Completed [facility] Pneumococcal Polysaccharide, PPSV23 (PNEUMOVAX) 2020-05-30 00:00:00 Completed [facility] Influenza Virus Vaccine Quad .5 mL IM 6+ MO 2020-05-30 00:00:00 Completed [facility] Pneumococcal Polysaccharide, PPSV23 (PNEUMOVAX) 2020-05-30 00:00:00 Completed [facility] Influenza Virus Vaccine Quad .5 mL IM 6+ MO 2020-05-30 00:00:00 Completed [facility] Pneumococcal Polysaccharide, PPSV23 (PNEUMOVAX) 2020-05-30 00:00:00 Completed [facility] Influenza Virus Vaccine Quad .5 mL IM 6+ MO 2020-05-30 00:00:00 Completed [facility] Pneumococcal Polysaccharide, PPSV23 (PNEUMOVAX) 2020-05-30 00:00:00 Completed [facility] Influenza Virus Vaccine Quad .5 mL IM 6+ MO 2020-05-30 00:00:00 Completed [facility] Pneumococcal Polysaccharide, PPSV23 (PNEUMOVAX) 2020-05-30 00:00:00 Completed [facility] Influenza Virus Vaccine Quad .5 mL IM 6+ MO 2020-05-30 00:00:00 Completed [facility] Pneumococcal Polysaccharide, PPSV23 (PNEUMOVAX) 2020-05-30 00:00:00 Completed [facility] Influenza Virus Vaccine Quad .5 mL IM 6+ MO 2020-05-30 00:00:00 Completed [facility] Pneumococcal Polysaccharide, PPSV23 (PNEUMOVAX) 2020-05-30 00:00:00 Completed [facility] Influenza Virus Vaccine Quad .5 mL IM 6+ MO 2020-05-30 00:00:00 Completed [facility] Pneumococcal Polysaccharide, PPSV23 (PNEUMOVAX) 2020-05-30 00:00:00 Completed [facility] Influenza Virus Vaccine Quad .5 mL IM 6+ MO 2020-05-30 00:00:00 Completed [facility] Pneumococcal Polysaccharide, PPSV23 (PNEUMOVAX) 2020-05-30 00:00:00 Completed [facility] Influenza Virus Vaccine Quad .5 mL IM 6+ MO 2020-05-30 00:00:00 Completed [facility] Pneumococcal Polysaccharide, PPSV23 (PNEUMOVAX) 2020-05-30 00:00:00 Completed [facility] Influenza Virus Vaccine Quad .5 mL IM 6+ MO 2020-05-30 00:00:00 Completed [facility] Pneumococcal Polysaccharide, PPSV23 (PNEUMOVAX) 2020-05-30 00:00:00 Completed [facility] Influenza Virus Vaccine Quad .5 mL IM 6+ MO 2020-05-30 00:00:00 Completed [facility] Pneumococcal Polysaccharide, PPSV23 (PNEUMOVAX) 2020-05-30 00:00:00 Completed [facility] Influenza Virus Vaccine Quad .5 mL IM 6+ MO 2020-05-30 00:00:00 Completed [facility] Pneumococcal Polysaccharide, PPSV23 (PNEUMOVAX) 2020-05-30 00:00:00 Completed [facility] Influenza Virus Vaccine Quad .5 mL IM 6+ MO 2020-05-30 00:00:00 Completed [facility] Pneumococcal Polysaccharide, PPSV23 (PNEUMOVAX) 2020-05-30 00:00:00 Completed [facility] Influenza Virus Vaccine Quad .5 mL IM 6+ MO 2020-05-30 00:00:00 Completed [facility] Pneumococcal Polysaccharide, PPSV23 (PNEUMOVAX) 2020-05-30 00:00:00 Completed [facility] Influenza Virus Vaccine Quad .5 mL IM 6+ MO 2020-05-30 00:00:00 Completed [facility] Pneumococcal Polysaccharide, PPSV23 (PNEUMOVAX) 2020-05-30 00:00:00 Completed [facility] Influenza Virus Vaccine Quad .5 mL IM 6+ MO 2020-05-30 00:00:00 Completed [facility] Pneumococcal Polysaccharide, PPSV23 (PNEUMOVAX) 2020-05-30 00:00:00 Completed [facility] Influenza Virus Vaccine Quad .5 mL IM 6+ MO 2020-05-30 00:00:00 Completed [facility] Pneumococcal Polysaccharide, PPSV23 (PNEUMOVAX) 2020-05-30 00:00:00 Completed [facility] Influenza Virus Vaccine Quad .5 mL IM 6+ MO 2020-05-30 00:00:00 Completed [facility] Pneumococcal Polysaccharide, PPSV23 (PNEUMOVAX) 2020-05-30 00:00:00 Completed [facility] Influenza Virus Vaccine Quad .5 mL IM 6+ MO 2020-05-30 00:00:00 Completed [facility] Pneumococcal Polysaccharide, PPSV23 (PNEUMOVAX) 2020-05-30 00:00:00 Completed [facility] Influenza Virus Vaccine Quad .5 mL IM 6+ MO 2020-05-30 00:00:00 Completed [facility] Pneumococcal Polysaccharide, PPSV23 (PNEUMOVAX) 2020-05-30 00:00:00 Completed [facility] Influenza Virus Vaccine Quad .5 mL IM 6+ MO 2020-05-30 00:00:00 Completed [facility] Pneumococcal Polysaccharide, PPSV23 (PNEUMOVAX) 2020-05-30 00:00:00 Completed [facility] Influenza Virus Vaccine Quad .5 mL IM 6+ MO 2020-05-30 00:00:00 Completed [facility] Pneumococcal Polysaccharide, PPSV23 (PNEUMOVAX) 2020-05-30 00:00:00 Completed [facility] Influenza Virus Vaccine Quad .5 mL IM 6+ MO 2020-05-30 00:00:00 Completed [facility] Pneumococcal Polysaccharide, PPSV23 (PNEUMOVAX) 2020-05-30 00:00:00 Completed [facility] Influenza Virus Vaccine Quad .5 mL IM 6+ MO 2020-05-30 00:00:00 Completed [facility] Pneumococcal Polysaccharide, PPSV23 (PNEUMOVAX) 2020-05-30 00:00:00 Completed [facility] Influenza Virus Vaccine Quad .5 mL IM 6+ MO 2020-05-30 00:00:00 Completed [facility] Pneumococcal Polysaccharide, PPSV23 (PNEUMOVAX) 2020-05-30 00:00:00 Completed [facility] Influenza Virus Vaccine Quad .5 mL IM 6+ MO 2020-05-30 00:00:00 Completed [facility] Pneumococcal Polysaccharide, PPSV23 (PNEUMOVAX) 2020-05-30 00:00:00 Completed [facility] Influenza Virus Vaccine Quad .5 mL IM 6+ MO 2020-05-30 00:00:00 Completed [facility] Pneumococcal Polysaccharide, PPSV23 (PNEUMOVAX) 2020-05-30 00:00:00 Completed [facility] Influenza Virus Vaccine Quad .5 mL IM 6+ MO 2020-05-30 00:00:00 Completed [facility] Pneumococcal Polysaccharide, PPSV23 (PNEUMOVAX) 2020-05-30 00:00:00 Completed [facility] Influenza Virus Vaccine Quad .5 mL IM 6+ MO 2020-05-30 00:00:00 Completed [facility] Pneumococcal Polysaccharide, PPSV23 (PNEUMOVAX) 2020-05-30 00:00:00 Completed [facility] Influenza Virus Vaccine Quad .5 mL IM 6+ MO 2020-05-30 00:00:00 Completed [facility] Pneumococcal Polysaccharide, PPSV23 (PNEUMOVAX) 2020-05-30 00:00:00 Completed [facility] Influenza Virus Vaccine Quad .5 mL IM 6+ MO 2020-05-30 00:00:00 Completed [facility] Pneumococcal Polysaccharide, PPSV23 (PNEUMOVAX) 2020-05-30 00:00:00 Completed [facility] Influenza Virus Vaccine Quad .5 mL IM 6+ MO 2020-05-30 00:00:00 Completed [facility] Pneumococcal Polysaccharide, PPSV23 (PNEUMOVAX) 2020-05-30 00:00:00 Completed [facility] Influenza Virus Vaccine Quad .5 mL IM 6+ MO 2020-05-30 00:00:00 Completed [facility] Pneumococcal Polysaccharide, PPSV23 (PNEUMOVAX) 2020-05-30 00:00:00 Completed [facility] Influenza Virus Vaccine Quad .5 mL IM 6+ MO 2020-05-30 00:00:00 Completed [facility] Pneumococcal Polysaccharide, PPSV23 (PNEUMOVAX) 2020-05-30 00:00:00 Completed [facility] Influenza Virus Vaccine Quad .5 mL IM 6+ MO 2020-05-30 00:00:00 Completed [facility] Pneumococcal Polysaccharide, PPSV23 (PNEUMOVAX) 2020-05-30 00:00:00 Completed [facility] Influenza Virus Vaccine Quad .5 mL IM 6+ MO 2020-05-30 00:00:00 Completed [facility] Pneumococcal Polysaccharide, PPSV23 (PNEUMOVAX) 2020-05-30 00:00:00 Completed [facility] Influenza Virus Vaccine Quad .5 mL IM 6+ MO 2020-05-30 00:00:00 Completed [facility] Pneumococcal Polysaccharide, PPSV23 (PNEUMOVAX) 2020-05-30 00:00:00 Completed [facility] Influenza Virus Vaccine Quad .5 mL IM 6+ MO 2020-05-30 00:00:00 Completed [facility] Pneumococcal Polysaccharide, PPSV23 (PNEUMOVAX) 2020-05-30 00:00:00 Completed [facility] Influenza Virus Vaccine Quad .5 mL IM 6+ MO 2020-05-30 00:00:00 Completed [facility] Pneumococcal Polysaccharide, PPSV23 (PNEUMOVAX) 2020-05-30 00:00:00 Completed [facility] Influenza Virus Vaccine Quad .5 mL IM 6+ MO 2020-05-30 00:00:00 Completed [facility] Pneumococcal Polysaccharide, PPSV23 (PNEUMOVAX) 2020-05-30 00:00:00 Completed [facility] Influenza Virus Vaccine Quad .5 mL IM 6+ MO 2020-05-30 00:00:00 Completed [facility] Pneumococcal Polysaccharide, PPSV23 (PNEUMOVAX) 2020-05-30 00:00:00 Completed [facility] Influenza Virus Vaccine Quad .5 mL IM 6+ MO 2020-05-30 00:00:00 Completed [facility] Pneumococcal Polysaccharide, PPSV23 (PNEUMOVAX) 2020-05-30 00:00:00 Completed [facility] Influenza Virus Vaccine Quad .5 mL IM 6+ MO 2020-05-30 00:00:00 Completed [facility] Pneumococcal Polysaccharide, PPSV23 (PNEUMOVAX) 2020-05-30 00:00:00 Completed [facility] Influenza Virus Vaccine Quad .5 mL IM 6+ MO 2020-05-30 00:00:00 Completed [facility] Pneumococcal Polysaccharide, PPSV23 (PNEUMOVAX) 2020-05-30 00:00:00 Completed [facility] Influenza Virus Vaccine Quad .5 mL IM 6+ MO 2020-05-30 00:00:00 Completed [facility] Pneumococcal Polysaccharide, PPSV23 (PNEUMOVAX) 2020-05-30 00:00:00 Completed [facility] Influenza Virus Vaccine Quad .5 mL IM 6+ MO 2020-05-30 00:00:00 Completed [facility] Pneumococcal Polysaccharide, PPSV23 (PNEUMOVAX) 2020-05-30 00:00:00 Completed [facility] Influenza Virus Vaccine Quad .5 mL IM 6+ MO 2020-05-30 00:00:00 Completed [facility] Pneumococcal Polysaccharide, PPSV23 (PNEUMOVAX) 2020-05-30 00:00:00 Completed [facility] Influenza Virus Vaccine Quad .5 mL IM 6+ MO 2020-05-30 00:00:00 Completed [facility] Pneumococcal Polysaccharide, PPSV23 (PNEUMOVAX) 2020-05-30 00:00:00 Completed [facility] Influenza Virus Vaccine Quad .5 mL IM 6+ MO 2020-05-30 00:00:00 Completed [facility] Pneumococcal Polysaccharide, PPSV23 (PNEUMOVAX) 2020-05-30 00:00:00 Completed [facility] Influenza Virus Vaccine Quad .5 mL IM 6+ MO 2020-05-30 00:00:00 Completed [facility] Pneumococcal Polysaccharide, PPSV23 (PNEUMOVAX) 2020-05-30 00:00:00 Completed [facility] Influenza Virus Vaccine Quad .5 mL IM 6+ MO 2020-05-30 00:00:00 Completed [facility] Pneumococcal Polysaccharide, PPSV23 (PNEUMOVAX) 2020-05-30 00:00:00 Completed [facility] Influenza Virus Vaccine Quad .5 mL IM 6+ MO 2020-05-30 00:00:00 Completed [facility] Pneumococcal Polysaccharide, PPSV23 (PNEUMOVAX) 2020-05-30 00:00:00 Completed [facility] Influenza Virus Vaccine Quad .5 mL IM 6+ MO 2020-05-30 00:00:00 Completed [facility] Pneumococcal Polysaccharide, PPSV23 (PNEUMOVAX) 2020-05-30 00:00:00 Completed [facility] Influenza Virus Vaccine Quad .5 mL IM 6+ MO 2020-05-30 00:00:00 Completed [facility] Pneumococcal Polysaccharide, PPSV23 (PNEUMOVAX) 2020-05-30 00:00:00 Completed [facility] Influenza Virus Vaccine Quad .5 mL IM 6+ MO 2020-05-30 00:00:00 Completed [facility] Pneumococcal Polysaccharide, PPSV23 (PNEUMOVAX) 2020-05-30 00:00:00 Completed [facility] Influenza Virus Vaccine Quad .5 mL IM 6+ MO 2020-05-30 00:00:00 Completed [facility] Pneumococcal Polysaccharide, PPSV23 (PNEUMOVAX) 2020-05-30 00:00:00 Completed [facility] Influenza Virus Vaccine Quad .5 mL IM 6+ MO (FLUZONE/FLULAVAL/F LUARIX) 2020-05-30 00:00:00 Completed [facility] Pneumococcal Polysaccharide, PPSV23 (PNEUMOVAX) 2020-05-30 00:00:00 Completed [facility] Influenza Virus Vaccine Quad .5 mL IM 6+ MO (FLUZONE/FLULAVAL/F LUARIX) 2020-05-30 00:00:00 Completed [facility] Pneumococcal Polysaccharide, PPSV23 (PNEUMOVAX) 2020-05-30 00:00:00 Completed [facility] Influenza Virus Vaccine Quad .5 mL IM 6+ MO (FLUZONE/FLULAVAL/F LUARIX) 2020-05-30 00:00:00 Completed [facility] Pneumococcal Polysaccharide, PPSV23 (PNEUMOVAX) 2020-05-30 00:00:00 Completed [facility] Influenza Virus Vaccine Quad .5 mL IM 6+ MO (FLUZONE/FLULAVAL/F LUARIX) 2020-05-30 00:00:00 Completed [facility] Pneumococcal Polysaccharide, PPSV23 (PNEUMOVAX) 2020-05-30 00:00:00 Completed [facility] Influenza Virus Vaccine Quad .5 mL IM 6+ MO (FLUZONE/FLULAVAL/F LUARIX) 2020-05-30 00:00:00 Completed [facility] Pneumococcal Polysaccharide, PPSV23 (PNEUMOVAX) 2020-05-30 00:00:00 Completed [facility] Influenza Virus Vaccine Quad .5 mL IM 6+ MO (FLUZONE/FLULAVAL/F LUARIX) 2020-05-30 00:00:00 Completed [facility] Pneumococcal Polysaccharide, PPSV23 (PNEUMOVAX) 2020-05-30 00:00:00 Completed [facility] Influenza Virus Vaccine Quad .5 mL IM 6+ MO (FLUZONE/FLULAVAL/F LUARIX) 2020-05-30 00:00:00 Completed [facility] Pneumococcal Polysaccharide, PPSV23 (PNEUMOVAX) 2020-05-30 00:00:00 Completed [facility] Influenza Virus Vaccine Quad .5 mL IM 6+ MO (FLUZONE/FLULAVAL/F LUARIX) 2020-05-30 00:00:00 Completed [facility] Pneumococcal Polysaccharide, PPSV23 (PNEUMOVAX) 2020-05-30 00:00:00 Completed [facility] Influenza Virus Vaccine Quad .5 mL IM 6+ MO (FLUZONE/FLULAVAL/F LUARIX) 2020-05-30 00:00:00 Completed [facility] Pneumococcal Polysaccharide, PPSV23 (PNEUMOVAX) 2020-05-30 00:00:00 Completed [facility] Influenza Virus Vaccine Quad .5 mL IM 6+ MO (FLUZONE/FLULAVAL/F LUARIX) 2020-05-30 00:00:00 Completed [facility] Pneumococcal Polysaccharide, PPSV23 (PNEUMOVAX) 2020-05-30 00:00:00 Completed [facility] Influenza Virus Vaccine Quad .5 mL IM 6+ MO (FLUZONE/FLULAVAL/F LUARIX) 2020-05-30 00:00:00 Completed [facility] Pneumococcal Polysaccharide, PPSV23 (PNEUMOVAX) 2020-05-30 00:00:00 Completed [facility] Influenza Virus Vaccine Quad .5 mL IM 6+ MO (FLUZONE/FLULAVAL/F LUARIX) 2020-05-30 00:00:00 Completed [facility] Pneumococcal Polysaccharide, PPSV23 (PNEUMOVAX) 2020-05-30 00:00:00 Completed [facility] Influenza Virus Vaccine Quad .5 mL IM 6+ MO (FLUZONE/FLULAVAL/F LUARIX) 2020-05-30 00:00:00 Completed [facility] Pneumococcal Polysaccharide, PPSV23 (PNEUMOVAX) 2020-05-30 00:00:00 Completed [facility] Td 2020-02-17 00:00:00 Completed [facility] Td 2020-02-17 00:00:00 Completed [facility] Td 2020-02-17 00:00:00 Completed [facility] Td 2020-02-17 00:00:00 Completed [facility] Td 2020-02-17 00:00:00 Completed [facility] Td 2020-02-17 00:00:00 Completed [facility] Td 2020-02-17 00:00:00 Completed [facility] Td 2020-02-17 00:00:00 Completed [facility] Td 2020-02-17 00:00:00 Completed [facility] Td 2020-02-17 00:00:00 Completed [facility] Td 2020-02-17 00:00:00 Completed [facility] Td 2020-02-17 00:00:00 Completed [facility] Td 2020-02-17 00:00:00 Completed [facility] Td 2020-02-17 00:00:00 Completed [facility] Td 2020-02-17 00:00:00 Completed [facility] Td 2020-02-17 00:00:00 Completed [facility] Td 2020-02-17 00:00:00 Completed [facility] Td 2020-02-17 00:00:00 Completed [facility] Td 2020-02-17 00:00:00 Completed [facility] Td 2020-02-17 00:00:00 Completed [facility] Td 2020-02-17 00:00:00 Completed [facility] TD, NOS 2020-02-17 00:00:00 Completed [facility] TD, NOS 2020-02-17 00:00:00 Completed [facility] TD, NOS 2020-02-17 00:00:00 Completed [facility] TD, NOS 2020-02-17 00:00:00 Completed [facility] TD, NOS 2020-02-17 00:00:00 Completed [facility] TD, NOS 2020-02-17 00:00:00 Completed [facility] TD, NOS 2020-02-17 00:00:00 Completed [facility] TD, NOS 2020-02-17 00:00:00 Completed [facility] TD, NOS 2020-02-17 00:00:00 Completed [facility] TD, NOS 2020-02-17 00:00:00 Completed [facility] TD, NOS 2020-02-17 00:00:00 Completed [facility] TD, NOS 2020-02-17 00:00:00 Completed [facility] TD, NOS 2020-02-17 00:00:00 Completed [facility] TD, NOS 2020-02-17 00:00:00 Completed [facility] TD, NOS 2020-02-17 00:00:00 Completed [facility] TD, NOS 2020-02-17 00:00:00 Completed [facility] TD, NOS 2020-02-17 00:00:00 Completed [facility] TD, NOS 2020-02-17 00:00:00 Completed [facility] TD, NOS 2020-02-17 00:00:00 Completed [facility] TD, NOS 2020-02-17 00:00:00 Completed [facility] TD, NOS 2020-02-17 00:00:00 Completed [facility] TD, NOS 2020-02-17 00:00:00 Completed [facility] TD, NOS 2020-02-17 00:00:00 Completed [facility] TD, NOS 2020-02-17 00:00:00 Completed [facility] TD, NOS 2020-02-17 00:00:00 Completed [facility] TD, NOS 2020-02-17 00:00:00 Completed [facility] TD, NOS 2020-02-17 00:00:00 Completed [facility] TD, NOS 2020-02-17 00:00:00 Completed [facility] TD, NOS 2020-02-17 00:00:00 Completed [facility] TD, NOS 2020-02-17 00:00:00 Completed [facility] TD, NOS 2020-02-17 00:00:00 Completed [facility] TD, NOS 2020-02-17 00:00:00 Completed [facility] TD, NOS 2020-02-17 00:00:00 Completed [facility] TD, NOS 2020-02-17 00:00:00 Completed [facility] TD, NOS 2020-02-17 00:00:00 Completed [facility] TD, NOS 2020-02-17 00:00:00 Completed [facility] TD, NOS 2020-02-17 00:00:00 Completed [facility] TD, NOS 2020-02-17 00:00:00 Completed [facility] TD, NOS 2020-02-17 00:00:00 Completed [facility] TD, NOS 2020-02-17 00:00:00 Completed [facility] TD, NOS 2020-02-17 00:00:00 Completed [facility] TD, NOS 2020-02-17 00:00:00 Completed [facility] TD, NOS 2020-02-17 00:00:00 Completed [facility] TD, NOS 2020-02-17 00:00:00 Completed [facility] TD, NOS 2020-02-17 00:00:00 Completed [facility] TD, NOS 2020-02-17 00:00:00 Completed [facility] TD, NOS 2020-02-17 00:00:00 Completed [facility] TD, NOS 2020-02-17 00:00:00 Completed [facility] TD, NOS 2020-02-17 00:00:00 Completed [facility] TD, NOS 2020-02-17 00:00:00 Completed [facility] TD, NOS 2020-02-17 00:00:00 Completed [facility] TD, NOS 2020-02-17 00:00:00 Completed [facility] TD, NOS 2020-02-17 00:00:00 Completed [facility] TD, NOS 2020-02-17 00:00:00 Completed [facility] TD, NOS 2020-02-17 00:00:00 Completed [facility] TD, NOS 2020-02-17 00:00:00 Completed [facility] TD, NOS 2020-02-17 00:00:00 Completed [facility] TD, NOS 2020-02-17 00:00:00 Completed [facility] TD, NOS 2020-02-17 00:00:00 Completed [facility] TD, NOS 2020-02-17 00:00:00 Completed [facility] TD, NOS 2020-02-17 00:00:00 Completed [facility] TD, NOS 2020-02-17 00:00:00 Completed [facility] TD, NOS 2020-02-17 00:00:00 Completed [facility] TD, NOS 2020-02-17 00:00:00 Completed [facility] TD, NOS 2020-02-17 00:00:00 Completed [facility] TD, NOS 2020-02-17 00:00:00 Completed [facility] TD, NOS 2020-02-17 00:00:00 Completed [facility] TD, NOS 2020-02-17 00:00:00 Completed [facility] TD, NOS 2020-02-17 00:00:00 Completed [facility] TD, NOS 2020-02-17 00:00:00 Completed [facility] TD, NOS 2020-02-17 00:00:00 Completed [facility] TD, NOS 2020-02-17 00:00:00 Completed [facility] TD, NOS 2020-02-17 00:00:00 Completed [facility] TD, NOS 2020-02-17 00:00:00 Completed [facility] Influenza Virus Vaccine (3+ yrs) 2016-06-05 00:00:00 Completed [facility] Influenza Virus Vaccine 2016-06-05 00:00:00 Completed [facility] Influenza Virus Vaccine (3+ yrs) 2016-06-05 00:00:00 Completed [facility] Influenza Virus Vaccine 2016-06-05 00:00:00 Completed [facility] Influenza Virus Vaccine (3+ yrs) 2016-06-05 00:00:00 Completed [facility] Influenza Virus Vaccine 2016-06-05 00:00:00 Completed [facility] Influenza Virus Vaccine (3+ yrs) 2016-06-05 00:00:00 Completed [facility] Influenza Virus Vaccine 2016-06-05 00:00:00 Completed [facility] Influenza Virus Vaccine (3+ yrs) 2016-06-05 00:00:[address] [facility] Influenza Virus Vaccine 2016-06-05 00:00:00 Completed [facility] Influenza Virus Vaccine (3+ yrs) 2016-06-05 00:00:00 Completed [facility] Influenza Virus Vaccine 2016-06-05 00:00:00 Completed [facility] Influenza Virus Vaccine (3+ yrs) 2016-06-05 00:00:00 Completed [facility] Influenza Virus Vaccine 2016-06-05 00:00:00 Completed [facility] Influenza Virus Vaccine (3+ yrs) 2016-06-05 00:00:00 Completed [facility] Influenza Virus Vaccine 2016-06-05 00:00:00 Completed [facility] Influenza Virus Vaccine (3+ yrs) 2016-06-05 00:00:00 Completed [facility] Influenza Virus Vaccine 2016-06-05 00:00:00 Completed [facility] Influenza Virus Vaccine (3+ yrs) 2016-06-05 00:00:00 Completed [facility] Influenza Virus Vaccine 2016-06-05 00:00:00 Completed [facility] Influenza Virus Vaccine (3+ yrs) 2016-06-05 00:00:00 Completed [facility] Influenza Virus Vaccine 2016-06-05 00:00:00 Completed [facility] Influenza Virus Vaccine (3+ yrs) 2016-06-05 00:00:[address] [facility] Influenza Virus Vaccine 2016-06-05 00:00:00 Completed [facility] Influenza Virus Vaccine (3+ yrs) 2016-06-05 00:00:00 Completed [facility] Influenza Virus Vaccine 2016-06-05 00:00:00 Completed [facility] Influenza Virus Vaccine (3+ yrs) 2016-06-05 00:00:00 Completed [facility] Influenza Virus Vaccine 2016-06-05 00:00:00 Completed [facility] Influenza Virus Vaccine (3+ yrs) 2016-06-05 00:00:[address] [facility] Influenza Virus Vaccine 2016-06-05 00:00:00 Completed [facility] Influenza Virus Vaccine (3+ yrs) 2016-06-05 00:00:00 Completed [facility] Influenza Virus Vaccine 2016-06-05 00:00:00 Completed [facility] Influenza Virus Vaccine (3+ yrs) 2016-06-05 00:00:00 Completed [facility] Influenza Virus Vaccine 2016-06-05 00:00:00 Completed [facility] Influenza Virus Vaccine (3+ yrs) 2016-06-05 00:00:00 Completed [facility] Influenza Virus Vaccine 2016-06-05 00:00:00 Completed [facility] Influenza Virus Vaccine (3+ yrs) 2016-06-05 00:00:00 Completed [facility] Influenza Virus Vaccine 2016-06-05 00:00:00 Completed [facility] Influenza Virus Vaccine (3+ yrs) 2016-06-05 00:00:00 Completed [facility] Influenza Virus Vaccine 2016-06-05 00:00:00 Completed [facility] Influenza Virus Vaccine (3+ yrs) 2016-06-05 00:00:00 Completed [facility] Influenza Virus Vaccine 2016-06-05 00:00:00 Completed [facility] Influenza Virus Vaccine (3+ yrs) 2016-06-05 00:00:00 Completed [facility] Influenza Virus Vaccine 2016-06-05 00:00:00 Completed [facility] Influenza Virus Vaccine (3+ yrs) 2016-06-05 00:00:00 Completed [facility] Influenza Virus Vaccine 2016-06-05 00:00:00 Completed [facility] Influenza Virus Vaccine (3+ yrs) 2016-06-05 00:00:00 Completed [facility] Influenza Virus Vaccine 2016-06-05 00:00:00 Completed [facility] Influenza Virus Vaccine (3+ yrs) 2016-06-05 00:00:00 Completed [facility] Influenza Virus Vaccine 2016-06-05 00:00:00 Completed [facility] Influenza Virus Vaccine (3+ yrs) 2016-06-05 00:00:00 Completed [facility] Influenza Virus Vaccine 2016-06-05 00:00:00 Completed [facility] Influenza Virus Vaccine (3+ yrs) 2016-06-05 00:00:00 Completed [facility] Influenza Virus Vaccine 2016-06-05 00:00:00 Completed [facility] Influenza Virus Vaccine (3+ yrs) 2016-06-05 00:00:00 Completed [facility] Influenza Virus Vaccine 2016-06-05 00:00:00 Completed [facility] Influenza Virus Vaccine (3+ yrs) 2016-06-05 00:00:00 Completed [facility] Influenza Virus Vaccine 2016-06-05 00:00:00 Completed [facility] Influenza Virus Vaccine (3+ yrs) 2016-06-05 00:00:00 Completed [facility] Influenza Virus Vaccine 2016-06-05 00:00:00 Completed [facility] Influenza Virus Vaccine (3+ yrs) 2016-06-05 00:00:00 Completed [facility] Influenza Virus Vaccine 2016-06-05 00:00:00 Completed [facility] Influenza Virus Vaccine (3+ yrs) 2016-06-05 00:00:00 Completed [facility] Influenza Virus Vaccine 2016-06-05 00:00:00 Completed [facility] Influenza Virus Vaccine (3+ yrs) 2016-06-05 00:00:00 Completed [facility] Influenza Virus Vaccine 2016-06-05 00:00:00 Completed [facility] Influenza Virus Vaccine (3+ yrs) 2016-06-05 00:00:00 Completed [facility] Influenza Virus Vaccine 2016-06-05 00:00:00 Completed [facility] Influenza Virus Vaccine (3+ yrs) 2016-06-05 00:00:00 Completed [facility] Influenza Virus Vaccine 2016-06-05 00:00:00 Completed [facility] Influenza Virus Vaccine (3+ yrs) 2016-06-05 00:00:[address] [facility] Influenza Virus Vaccine 2016-06-05 00:00:00 Completed [facility] Influenza Virus Vaccine (3+ yrs) 2016-06-05 00:00:[address] [facility] Influenza Virus Vaccine 2016-06-05 00:00:00 Completed [facility] Influenza Virus Vaccine (3+ yrs) 2016-06-05 00:00:[address] [facility] Influenza Virus Vaccine 2016-06-05 00:00:00 Completed [facility] Influenza Virus Vaccine (3+ yrs) 2016-06-05 00:00:00 Completed [facility] Influenza Virus Vaccine 2016-06-05 00:00:00 Completed [facility] Influenza Virus Vaccine (3+ yrs) 2016-06-05 00:00:00 Completed [facility] Influenza Virus Vaccine 2016-06-05 00:00:00 Completed [facility] Influenza Virus Vaccine (3+ yrs) 2016-06-05 00:00:00 Completed [facility] Influenza Virus Vaccine 2016-06-05 00:00:00 Completed [facility] Influenza Virus Vaccine (3+ yrs) 2016-06-05 00:00:00 Completed [facility] Influenza Virus Vaccine 2016-06-05 00:00:00 Completed [facility] Influenza Virus Vaccine (3+ yrs) 2016-06-05 00:00:00 Completed [facility] Influenza Virus Vaccine 2016-06-05 00:00:00 Completed [facility] Influenza Virus Vaccine (3+ yrs) 2016-06-05 00:00:00 Completed [facility] Influenza Virus Vaccine 2016-06-05 00:00:00 Completed [facility] Influenza Virus Vaccine (3+ yrs) 2016-06-05 00:00:00 Completed [facility] Influenza Virus Vaccine 2016-06-05 00:00:00 Completed [facility] Influenza Virus Vaccine (3+ yrs) 2016-06-05 00:00:00 Completed [facility] Influenza Virus Vaccine 2016-06-05 00:00:00 Completed [facility] Influenza Virus Vaccine (3+ yrs) 2016-06-05 00:00:[address] [facility] Influenza Virus Vaccine 2016-06-05 00:00:00 Completed [facility] Influenza Virus Vaccine (3+ yrs) 2016-06-05 00:00:[address] [facility] Influenza Virus Vaccine 2016-06-05 00:00:00 Completed [facility] Influenza Virus Vaccine (3+ yrs) 2016-06-05 00:00:00 Completed [facility] Influenza Virus Vaccine 2016-06-05 00:00:00 Completed [facility] Influenza Virus Vaccine (3+ yrs) 2016-06-05 00:00:[address] [facility] Influenza Virus Vaccine 2016-06-05 00:00:00 Completed [facility] Influenza Virus Vaccine (3+ yrs) 2016-06-05 00:00:00 Completed [facility] Influenza Virus Vaccine 2016-06-05 00:00:00 Completed [facility] Influenza Virus Vaccine (3+ yrs) 2016-06-05 00:00:00 Completed [facility] Influenza Virus Vaccine 2016-06-05 00:00:00 Completed [facility] Influenza Virus Vaccine (3+ yrs) 2016-06-05 00:00:00 Completed [facility] Influenza Virus Vaccine 2016-06-05 00:00:00 Completed [facility] Influenza Virus Vaccine (3+ yrs) 2016-06-05 00:00:00 Completed [facility] Influenza Virus Vaccine 2016-06-05 00:00:00 Completed [facility] Influenza Virus Vaccine (3+ yrs) 2016-06-05 00:00:00 Completed [facility] Influenza Virus Vaccine 2016-06-05 00:00:00 Completed [facility] Influenza Virus Vaccine (3+ yrs) 2016-06-05 00:00:00 Completed [facility] Influenza Virus Vaccine 2016-06-05 00:00:00 Completed [facility] Influenza Virus Vaccine (3+ yrs) 2016-06-05 00:00:00 Completed [facility] Influenza Virus Vaccine 2016-06-05 00:00:00 Completed [facility] Influenza Virus Vaccine (3+ yrs) 2016-06-05 00:00:00 Completed [facility] Influenza Virus Vaccine 2016-06-05 00:00:00 Completed [facility] Influenza Virus Vaccine (3+ yrs) 2016-06-05 00:00:00 Completed [facility] Influenza Virus Vaccine 2016-06-05 00:00:00 Completed [facility] Influenza Virus Vaccine (3+ yrs) 2016-06-05 00:00:00 Completed [facility] Influenza Virus Vaccine 2016-06-05 00:00:00 Completed [facility] Influenza Virus Vaccine (3+ yrs) 2016-06-05 00:00:00 Completed [facility] Influenza Virus Vaccine 2016-06-05 00:00:00 Completed [facility] Influenza Virus Vaccine (3+ yrs) 2016-06-05 00:00:00 Completed [facility] Influenza Virus Vaccine 2016-06-05 00:00:00 Completed [facility] Influenza Virus Vaccine (3+ yrs) 2016-06-05 00:00:00 Completed [facility] Influenza Virus Vaccine 2016-06-05 00:00:00 Completed [facility] Influenza Virus Vaccine (3+ yrs) 2016-06-05 00:00:00 Completed [facility] Influenza Virus Vaccine 2016-06-05 00:00:00 Completed [facility] Influenza Virus Vaccine (3+ yrs) 2016-06-05 00:00:00 Completed [facility] Influenza Virus Vaccine 2016-06-05 00:00:00 Completed [facility] Influenza Virus Vaccine (3+ yrs) 2016-06-05 00:00:00 Completed [facility] Influenza Virus Vaccine 2016-06-05 00:00:00 Completed [facility] Influenza Virus Vaccine (3+ yrs) 2016-06-05 00:00:00 Completed [facility] Influenza Virus Vaccine 2016-06-05 00:00:00 Completed [facility] Influenza Virus Vaccine (3+ yrs) 2016-06-05 00:00:00 Completed [facility] Influenza Virus Vaccine 2016-06-05 00:00:00 Completed [facility] Influenza Virus Vaccine (3+ yrs) 2016-06-05 00:00:00 Completed [facility] Influenza Virus Vaccine 2016-06-05 00:00:00 Completed [facility] Influenza Virus Vaccine (3+ yrs) 2016-06-05 00:00:00 Completed [facility] Influenza Virus Vaccine 2016-06-05 00:00:00 Completed [facility] Influenza Virus Vaccine (3+ yrs) 2016-06-05 00:00:00 Completed [facility] Influenza Virus Vaccine 2016-06-05 00:00:00 Completed [facility] Influenza Virus Vaccine (3+ yrs) 2016-06-05 00:00:[address] [facility] Influenza Virus Vaccine 2016-06-05 00:00:00 Completed [facility] Influenza Virus Vaccine (3+ yrs) 2016-06-05 00:00:[address] [facility] Influenza Virus Vaccine 2016-06-05 00:00:00 Completed [facility] Influenza Virus Vaccine (3+ yrs) 2016-06-05 00:00:00 Completed [facility] Influenza Virus Vaccine 2016-06-05 00:00:[address] [facility] Influenza Virus Vaccine (3+ yrs) 2016-06-05 00:00:00 Completed [facility] Influenza Virus Vaccine 2016-06-05 00:00:00 Completed [facility] Influenza Virus Vaccine (3+ yrs) 2016-06-05 00:00:00 Completed [facility] Influenza Virus Vaccine 2016-06-05 00:00:00 Completed [facility] Influenza Virus Vaccine (3+ yrs) 2016-06-05 00:00:00 Completed [facility] Influenza Virus Vaccine 2016-06-05 00:00:00 Completed [facility] Influenza Virus Vaccine (3+ yrs) 2016-06-05 00:00:00 Completed [facility] Influenza Virus Vaccine 2016-06-05 00:00:00 Completed [facility] Influenza Virus Vaccine (3+ yrs) 2016-06-05 00:00:00 Completed [facility] Influenza Virus Vaccine 2016-06-05 00:00:00 Completed [facility] Influenza Virus Vaccine (3+ yrs) 2016-06-05 00:00:00 Completed [facility] Influenza Virus Vaccine 2016-06-05 00:00:00 Completed [facility] Influenza Virus Vaccine (3+ yrs) 2016-06-05 00:00:00 Completed [facility] Influenza Virus Vaccine 2016-06-05 00:00:00 Completed [facility] Influenza Virus Vaccine (3+ yrs) 2016-06-05 00:00:[address] [facility] Influenza Virus Vaccine 2016-06-05 00:00:00 Completed [facility] Influenza Virus Vaccine (3+ yrs) 2016-06-05 00:00:[address] [facility] Influenza Virus Vaccine 2016-06-05 00:00:00 Completed [facility] Influenza Virus Vaccine (3+ yrs) 2016-06-05 00:00:[address] [facility] Influenza Virus Vaccine 2016-06-05 00:00:[address] [facility] Influenza Virus Vaccine (3+ yrs) 2016-06-05 00:00:00 Completed [facility] Influenza Virus Vaccine 2016-06-05 00:00:00 Completed [facility] Influenza Virus Vaccine (3+ yrs) 2016-06-05 00:00:00 Completed [facility] Influenza Virus Vaccine 2016-06-05 00:00:00 Completed [facility] Influenza Virus Vaccine (3+ yrs) 2016-06-05 00:00:00 Completed [facility] Influenza Virus Vaccine 2016-06-05 00:00:00 Completed [facility] Influenza Virus Vaccine (3+ yrs) 2016-06-05 00:00:00 Completed [facility] Influenza Virus Vaccine 2016-06-05 00:00:00 Completed [facility] Influenza Virus Vaccine (3+ yrs) 2016-06-05 00:00:00 Completed [facility] Influenza Virus Vaccine 2016-06-05 00:00:00 Completed [facility] Influenza Virus Vaccine (3+ yrs) 2016-06-05 00:00:00 Completed [facility] Influenza Virus Vaccine 2016-06-05 00:00:00 Completed [facility] Influenza Virus Vaccine (3+ yrs) 2016-06-05 00:00:00 Completed [facility] Influenza Virus Vaccine 2016-06-05 00:00:00 Completed [facility] Influenza Virus Vaccine (3+ yrs) 2016-06-05 00:00:00 Completed [facility] Influenza Virus Vaccine 2016-06-05 00:00:00 Completed [facility] Influenza Virus Vaccine (3+ yrs) 2016-06-05 00:00:00 Completed [facility] Influenza Virus Vaccine 2016-06-05 00:00:00 Completed [facility] Influenza Virus Vaccine (3+ yrs) 2016-06-05 00:00:00 Completed [facility] Influenza Virus Vaccine 2016-06-05 00:00:00 Completed [facility] Influenza Virus Vaccine (3+ yrs) 2016-06-05 00:00:00 Completed [facility] Influenza Virus Vaccine 2016-06-05 00:00:00 Completed [facility] TDAP 2016-02-28 00:00:00 Completed [facility] TDAP 2016-02-28 00:00:00 Completed [facility] TDAP 2016-02-28 00:00:00 Completed [facility] TDAP 2016-02-28 00:00:00 Completed [facility] TDAP 2016-02-28 00:00:00 Completed [facility] TDAP 2016-02-28 00:00:00 Completed [facility] TDAP 2016-02-28 00:00:00 Completed [facility] TDAP 2016-02-28 00:00:00 Completed [facility] TDAP 2016-02-28 00:00:00 Completed [facility] TDAP 2016-02-28 00:00:00 Completed [facility] TDAP 2016-02-28 00:00:00 Completed [facility] TDAP 2016-02-28 00:00:00 Completed [facility] TDAP 2016-02-28 00:00:00 Completed [facility] TDAP 2016-02-28 00:00:00 Completed [facility] TDAP 2016-02-28 00:00:00 Completed [facility] TDAP 2016-02-28 00:00:00 Completed [facility] TDAP 2016-02-28 00:00:00 Completed [facility] TDAP 2016-02-28 00:00:00 Completed [facility] TDAP 2016-02-28 00:00:00 Completed [facility] TDAP 2016-02-28 00:00:00 Completed [facility] TDAP 2016-02-28 00:00:00 Completed [facility] TDAP 2016-02-28 00:00:00 Completed [facility] TDAP 2016-02-28 00:00:00 Completed [facility] TDAP 2016-02-28 00:00:00 Completed [facility] TDAP 2016-02-28 00:00:00 Completed [facility] TDAP 2016-02-28 00:00:00 Completed [facility] TDAP 2016-02-28 00:00:00 Completed [facility] TDAP 2016-02-28 00:00:00 Completed [facility] TDAP 2016-02-28 00:00:00 Completed [facility] TDAP 2016-02-28 00:00:00 Completed [facility] TDAP 2016-02-28 00:00:00 Completed [facility] TDAP 2016-02-28 00:00:00 Completed [facility] TDAP 2016-02-28 00:00:00 Completed [facility] TDAP 2016-02-28 00:00:00 Completed [facility] TDAP 2016-02-28 00:00:00 Completed [facility] TDAP 2016-02-28 00:00:00 Completed [facility] TDAP 2016-02-28 00:00:00 Completed [facility] TDAP 2016-02-28 00:00:00 Completed [facility] TDAP 2016-02-28 00:00:00 Completed [facility] TDAP 2016-02-28 00:00:00 Completed [facility] TDAP 2016-02-28 00:00:00 Completed [facility] TDAP 2016-02-28 00:00:00 Completed [facility] TDAP 2016-02-28 00:00:00 Completed [facility] TDAP 2016-02-28 00:00:00 Completed [facility] TDAP 2016-02-28 00:00:00 Completed [facility] TDAP 2016-02-28 00:00:00 Completed [facility] TDAP 2016-02-28 00:00:00 Completed [facility] TDAP 2016-02-28 00:00:00 Completed [facility] TDAP 2016-02-28 00:00:00 Completed [facility] TDAP 2016-02-28 00:00:00 Completed [facility] TDAP 2016-02-28 00:00:00 Completed [facility] TDAP 2016-02-28 00:00:00 Completed [facility] TDAP 2016-02-28 00:00:00 Completed [facility] TDAP 2016-02-28 00:00:00 Completed [facility] TDAP 2016-02-28 00:00:00 Completed [facility] TDAP 2016-02-28 00:00:00 Completed [facility] TDAP 2016-02-28 00:00:00 Completed [facility] TDAP 2016-02-28 00:00:00 Completed [facility] TDAP 2016-02-28 00:00:00 Completed [facility] TDAP 2016-02-28 00:00:00 Completed [facility] TDAP 2016-02-28 00:00:00 Completed [facility] TDAP 2016-02-28 00:00:00 Completed [facility] TDAP 2016-02-28 00:00:00 Completed [facility] TDAP 2016-02-28 00:00:00 Completed [facility] TDAP 2016-02-28 00:00:00 Completed [facility] TDAP 2016-02-28 00:00:00 Completed [facility] TDAP 2016-02-28 00:00:00 Completed [facility] TDAP 2016-02-28 00:00:00 Completed [facility] TDAP 2016-02-28 00:00:00 Completed [facility] TDAP 2016-02-28 00:00:00 Completed [facility] TDAP 2016-02-28 00:00:00 Completed [facility] TDAP 2016-02-28 00:00:00 Completed [facility] TDAP 2016-02-28 00:00:00 Completed [facility] TDAP 2016-02-28 00:00:00 Completed [facility] TDAP 2016-02-28 00:00:00 Completed [facility] TDAP 2016-02-28 00:00:00 Completed [facility] TDAP 2016-02-28 00:00:00 Completed [facility] TDAP 2016-02-28 00:00:00 Completed [facility] TDAP 2016-02-28 00:00:00 Completed [facility] TDAP 2016-02-28 00:00:00 Completed [facility] TDAP 2016-02-28 00:00:00 Completed [facility] TDAP 2016-02-28 00:00:00 Completed [facility] TDAP 2016-02-28 00:00:00 Completed [facility] TDAP 2016-02-28 00:00:00 Completed [facility] TDAP 2016-02-28 00:00:00 Completed [facility] TDAP 2016-02-28 00:00:00 Completed [facility] TDAP 2016-02-28 00:00:00 Completed [facility] TDAP 2016-02-28 00:00:00 Completed [facility] TDAP 2016-02-28 00:00:00 Completed [facility] TDAP 2016-02-28 00:00:00 Completed [facility] TDAP 2016-02-28 00:00:00 Completed [facility] TDAP 2016-02-28 00:00:00 Completed [facility] TDAP 2016-02-28 00:00:00 Completed [facility] TDAP 2016-02-28 00:00:00 Completed [facility] TDAP 2016-02-28 00:00:00 Completed [facility] Influenza Virus Vaccine (3+ yrs) 2015-04-24 00:00:00 Completed [facility] Influenza Virus Vaccine 2015-04-24 00:00:00 Completed [facility] Influenza Virus Vaccine (3+ yrs) 2015-04-24 00:00:00 Completed [facility] Influenza Virus Vaccine 2015-04-24 00:00:00 Completed [facility] Influenza Virus Vaccine (3+ yrs) 2015-04-24 00:00:00 Completed [facility] Influenza Virus Vaccine 2015-04-24 00:00:00 Completed [facility] Influenza Virus Vaccine (3+ yrs) 2015-04-24 00:00:00 Completed [facility] Influenza Virus Vaccine 2015-04-24 00:00:00 Completed [facility] Influenza Virus Vaccine (3+ yrs) 2015-04-24 00:00:00 Completed [facility] Influenza Virus Vaccine 2015-04-24 00:00:00 Completed [facility] Influenza Virus Vaccine (3+ yrs) 2015-04-24 00:00:00 Completed [facility] Influenza Virus Vaccine 2015-04-24 00:00:00 Completed [facility] Influenza Virus Vaccine (3+ yrs) 2015-04-24 00:00:[address] [facility] Influenza Virus Vaccine 2015-04-24 00:00:00 Completed [facility] Influenza Virus Vaccine (3+ yrs) 2015-04-24 00:00:00 Completed [facility] Influenza Virus Vaccine 2015-04-24 00:00:00 Completed [facility] Influenza Virus Vaccine (3+ yrs) 2015-04-24 00:00:[address] [facility] Influenza Virus Vaccine 2015-04-24 00:00:[address] [facility] Influenza Virus Vaccine (3+ yrs) 2015-04-24 00:00:00 Completed [facility] Influenza Virus Vaccine 2015-04-24 00:00:00 Completed [facility] Influenza Virus Vaccine (3+ yrs) 2015-04-24 00:00:[address] [facility] Influenza Virus Vaccine 2015-04-24 00:00:00 Completed [facility] Influenza Virus Vaccine (3+ yrs) 2015-04-24 00:00:[address] [facility] Influenza Virus Vaccine 2015-04-24 00:00:00 Completed [facility] Influenza Virus Vaccine (3+ yrs) 2015-04-24 00:00:00 Completed [facility] Influenza Virus Vaccine 2015-04-24 00:00:00 Completed [facility] Influenza Virus Vaccine (3+ yrs) 2015-04-24 00:00:[address] [facility] Influenza Virus Vaccine 2015-04-24 00:00:[address] [facility] Influenza Virus Vaccine (3+ yrs) 2015-04-24 00:00:[address] [facility] Influenza Virus Vaccine 2015-04-24 00:00:00 Completed [facility] Influenza Virus Vaccine (3+ yrs) 2015-04-24 00:00:[address] [facility] Influenza Virus Vaccine 2015-04-24 00:00:[address] [facility] Influenza Virus Vaccine (3+ yrs) 2015-04-24 00:00:[address] [facility] Influenza Virus Vaccine 2015-04-24 00:00:[address] [facility] Influenza Virus Vaccine (3+ yrs) 2015-04-24 00:00:[address] [facility] Influenza Virus Vaccine 2015-04-24 00:00:[address] [facility] Influenza Virus Vaccine (3+ yrs) 2015-04-24 00:00:[address] [facility] Influenza Virus Vaccine 2015-04-24 00:00:[address] [facility] Influenza Virus Vaccine (3+ yrs) 2015-04-24 00:00:00 Completed [facility] Influenza Virus Vaccine 2015-04-24 00:00:00 Completed [facility] Influenza Virus Vaccine (3+ yrs) 2015-04-24 00:00:00 Completed [facility] Influenza Virus Vaccine 2015-04-24 00:00:[address] [facility] Influenza Virus Vaccine (3+ yrs) 2015-04-24 00:00:[address] [facility] Influenza Virus Vaccine 2015-04-24 00:00:[address] [facility] Influenza Virus Vaccine (3+ yrs) 2015-04-24 00:00:[address] [facility] Influenza Virus Vaccine 2015-04-24 00:00:00 Completed [facility] Influenza Virus Vaccine (3+ yrs) 2015-04-24 00:00:00 Completed [facility] Influenza Virus Vaccine 2015-04-24 00:00:00 Completed [facility] Influenza Virus Vaccine (3+ yrs) 2015-04-24 00:00:00 Completed [facility] Influenza Virus Vaccine 2015-04-24 00:00:00 Completed [facility] Influenza Virus Vaccine (3+ yrs) 2015-04-24 00:00:[address] [facility] Influenza Virus Vaccine 2015-04-24 00:00:[address] [facility] Influenza Virus Vaccine (3+ yrs) 2015-04-24 00:00:[address] [facility] Influenza Virus Vaccine 2015-04-24 00:00:[address] [facility] Influenza Virus Vaccine (3+ yrs) 2015-04-24 00:00:[address] [facility] Influenza Virus Vaccine 2015-04-24 00:00:[address] [facility] Influenza Virus Vaccine (3+ yrs) 2015-04-24 00:00:[address] [facility] Influenza Virus Vaccine 2015-04-24 00:00:[address] [facility] Influenza Virus Vaccine (3+ yrs) 2015-04-24 00:00:[address] [facility] Influenza Virus Vaccine 2015-04-24 00:00:00 Completed [facility] Influenza Virus Vaccine (3+ yrs) 2015-04-24 00:00:[address] [facility] Influenza Virus Vaccine 2015-04-24 00:00:00 Completed [facility] Influenza Virus Vaccine (3+ yrs) 2015-04-24 00:00:00 Completed [facility] Influenza Virus Vaccine 2015-04-24 00:00:00 Completed [facility] Influenza Virus Vaccine (3+ yrs) 2015-04-24 00:00:[address] [facility] Influenza Virus Vaccine 2015-04-24 00:00:[address] [facility] Influenza Virus Vaccine (3+ yrs) 2015-04-24 00:00:[address] [facility] Influenza Virus Vaccine 2015-04-24 00:00:00 Completed [facility] Influenza Virus Vaccine (3+ yrs) 2015-04-24 00:00:00 Completed [facility] Influenza Virus Vaccine 2015-04-24 00:00:00 Completed [facility] Influenza Virus Vaccine (3+ yrs) 2015-04-24 00:00:00 Completed [facility] Influenza Virus Vaccine 2015-04-24 00:00:00 Completed [facility] Influenza Virus Vaccine (3+ yrs) 2015-04-24 00:00:00 Completed [facility] Influenza Virus Vaccine 2015-04-24 00:00:00 Completed [facility] Influenza Virus Vaccine (3+ yrs) 2015-04-24 00:00:[address] [facility] Influenza Virus Vaccine 2015-04-24 00:00:00 Completed [facility] Influenza Virus Vaccine (3+ yrs) 2015-04-24 00:00:[address] [facility] Influenza Virus Vaccine 2015-04-24 00:00:00 Completed [facility] Influenza Virus Vaccine (3+ yrs) 2015-04-24 00:00:[address] [facility] Influenza Virus Vaccine 2015-04-24 00:00:00 Completed [facility] Influenza Virus Vaccine (3+ yrs) 2015-04-24 00:00:[address] [facility] Influenza Virus Vaccine 2015-04-24 00:00:[address] [facility] Influenza Virus Vaccine (3+ yrs) 2015-04-24 00:00:[address] [facility] Influenza Virus Vaccine 2015-04-24 00:00:00 Completed [facility] Influenza Virus Vaccine (3+ yrs) 2015-04-24 00:00:[address] [facility] Influenza Virus Vaccine 2015-04-24 00:00:00 Completed [facility] Influenza Virus Vaccine (3+ yrs) 2015-04-24 00:00:00 Completed [facility] Influenza Virus Vaccine 2015-04-24 00:00:00 Completed [facility] Influenza Virus Vaccine (3+ yrs) 2015-04-24 00:00:00 Completed [facility] Influenza Virus Vaccine 2015-04-24 00:00:00 Completed [facility] Influenza Virus Vaccine (3+ yrs) 2015-04-24 00:00:00 Completed [facility] Influenza Virus Vaccine 2015-04-24 00:00:00 Completed [facility] Influenza Virus Vaccine (3+ yrs) 2015-04-24 00:00:00 Completed [facility] Influenza Virus Vaccine 2015-04-24 00:00:00 Completed [facility] Influenza Virus Vaccine (3+ yrs) 2015-04-24 00:00:00 Completed [facility] Influenza Virus Vaccine 2015-04-24 00:00:00 Completed [facility] Influenza Virus Vaccine (3+ yrs) 2015-04-24 00:00:00 Completed [facility] Influenza Virus Vaccine 2015-04-24 00:00:00 Completed [facility] Influenza Virus Vaccine (3+ yrs) 2015-04-24 00:00:00 Completed [facility] Influenza Virus Vaccine 2015-04-24 00:00:00 Completed [facility] Influenza Virus Vaccine (3+ yrs) 2015-04-24 00:00:00 Completed [facility] Influenza Virus Vaccine 2015-04-24 00:00:00 Completed [facility] Influenza Virus Vaccine (3+ yrs) 2015-04-24 00:00:00 Completed [facility] Influenza Virus Vaccine 2015-04-24 00:00:00 Completed [facility] Influenza Virus Vaccine (3+ yrs) 2015-04-24 00:00:[address] [facility] Influenza Virus Vaccine 2015-04-24 00:00:00 Completed [facility] Influenza Virus Vaccine (3+ yrs) 2015-04-24 00:00:00 Completed [facility] Influenza Virus Vaccine 2015-04-24 00:00:00 Completed [facility] Influenza Virus Vaccine (3+ yrs) 2015-04-24 00:00:00 Completed [facility] Influenza Virus Vaccine 2015-04-24 00:00:00 Completed [facility] Influenza Virus Vaccine (3+ yrs) 2015-04-24 00:00:[address] [facility] Influenza Virus Vaccine 2015-04-24 00:00:00 Completed [facility] Influenza Virus Vaccine (3+ yrs) 2015-04-24 00:00:00 Completed [facility] Influenza Virus Vaccine 2015-04-24 00:00:00 Completed [facility] Influenza Virus Vaccine (3+ yrs) 2015-04-24 00:00:00 Completed [facility] Influenza Virus Vaccine 2015-04-24 00:00:00 Completed [facility] Influenza Virus Vaccine (3+ yrs) 2015-04-24 00:00:00 Completed [facility] Influenza Virus Vaccine 2015-04-24 00:00:00 Completed [facility] Influenza Virus Vaccine (3+ yrs) 2015-04-24 00:00:00 Completed [facility] Influenza Virus Vaccine 2015-04-24 00:00:00 Completed [facility] Influenza Virus Vaccine (3+ yrs) 2015-04-24 00:00:[address] [facility] Influenza Virus Vaccine 2015-04-24 00:00:00 Completed [facility] Influenza Virus Vaccine (3+ yrs) 2015-04-24 00:00:[address] [facility] Influenza Virus Vaccine 2015-04-24 00:00:00 Completed [facility] Influenza Virus Vaccine (3+ yrs) 2015-04-24 00:00:[address] [facility] Influenza Virus Vaccine 2015-04-24 00:00:[address] [facility] Influenza Virus Vaccine (3+ yrs) 2015-04-24 00:00:[address] [facility] Influenza Virus Vaccine 2015-04-24 00:00:00 Completed [facility] Influenza Virus Vaccine (3+ yrs) 2015-04-24 00:00:[address] [facility] Influenza Virus Vaccine 2015-04-24 00:00:00 Completed [facility] Influenza Virus Vaccine (3+ yrs) 2015-04-24 00:00:[address] [facility] Influenza Virus Vaccine 2015-04-24 00:00:00 Completed [facility] Influenza Virus Vaccine (3+ yrs) 2015-04-24 00:00:00 Completed [facility] Influenza Virus Vaccine 2015-04-24 00:00:00 Completed [facility] Influenza Virus Vaccine (3+ yrs) 2015-04-24 00:00:00 Completed [facility] Influenza Virus Vaccine 2015-04-24 00:00:00 Completed [facility] Influenza Virus Vaccine (3+ yrs) 2015-04-24 00:00:00 Completed [facility] Influenza Virus Vaccine 2015-04-24 00:00:00 Completed [facility] Influenza Virus Vaccine (3+ yrs) 2015-04-24 00:00:00 Completed [facility] Influenza Virus Vaccine 2015-04-24 00:00:00 Completed [facility] Influenza Virus Vaccine (3+ yrs) 2015-04-24 00:00:00 Completed [facility] Influenza Virus Vaccine 2015-04-24 00:00:00 Completed [facility] Influenza Virus Vaccine (3+ yrs) 2015-04-24 00:00:00 Completed [facility] Influenza Virus Vaccine 2015-04-24 00:00:00 Completed [facility] Influenza Virus Vaccine (3+ yrs) 2015-04-24 00:00:00 Completed [facility] Influenza Virus Vaccine 2015-04-24 00:00:00 Completed [facility] Influenza Virus Vaccine (3+ yrs) 2015-04-24 00:00:00 Completed [facility] Influenza Virus Vaccine 2015-04-24 00:00:00 Completed [facility] Influenza Virus Vaccine (3+ yrs) 2015-04-24 00:00:[address] [facility] Influenza Virus Vaccine 2015-04-24 00:00:00 Completed [facility] Influenza Virus Vaccine (3+ yrs) 2015-04-24 00:00:00 Completed [facility] Influenza Virus Vaccine 2015-04-24 00:00:00 Completed [facility] Influenza Virus Vaccine (3+ yrs) 2015-04-24 00:00:00 Completed [facility] Influenza Virus Vaccine 2015-04-24 00:00:00 Completed [facility] Influenza Virus Vaccine (3+ yrs) 2015-04-24 00:00:00 Completed [facility] Influenza Virus Vaccine 2015-04-24 00:00:00 Completed [facility] Influenza Virus Vaccine (3+ yrs) 2015-04-24 00:00:00 Completed [facility] Influenza Virus Vaccine 2015-04-24 00:00:00 Completed [facility] Influenza Virus Vaccine (3+ yrs) 2015-04-24 00:00:00 Completed [facility] Influenza Virus Vaccine 2015-04-24 00:00:00 Completed [facility] Influenza Virus Vaccine (3+ yrs) 2015-04-24 00:00:00 Completed [facility] Influenza Virus Vaccine 2015-04-24 00:00:00 Completed [facility] Influenza Virus Vaccine (3+ yrs) 2015-04-24 00:00:00 Completed [facility] Influenza Virus Vaccine 2015-04-24 00:00:00 Completed [facility] Influenza Virus Vaccine (3+ yrs) 2015-04-24 00:00:00 Completed [facility] Influenza Virus Vaccine 2015-04-24 00:00:00 Completed [facility] Influenza Virus Vaccine (3+ yrs) 2015-04-24 00:00:00 Completed [facility] Influenza Virus Vaccine 2015-04-24 00:00:00 Completed [facility] Influenza Virus Vaccine (3+ yrs) 2015-04-24 00:00:00 Completed [facility] Influenza Virus Vaccine 2015-04-24 00:00:00 Completed [facility] Influenza Virus Vaccine (3+ yrs) 2015-04-24 00:00:00 Completed [facility] Influenza Virus Vaccine 2015-04-24 00:00:00 Completed [facility] Influenza Virus Vaccine (3+ yrs) 2015-04-24 00:00:00 Completed [facility] Influenza Virus Vaccine 2015-04-24 00:00:00 Completed [facility] Influenza Virus Vaccine (3+ yrs) 2015-04-24 00:00:[address] [facility] Influenza Virus Vaccine 2015-04-24 00:00:00 Completed [facility] Influenza Virus Vaccine (3+ yrs) 2015-04-24 00:00:00 Completed [facility] Influenza Virus Vaccine 2015-04-24 00:00:00 Completed [facility] Influenza Virus Vaccine (3+ yrs) 2015-04-24 00:00:00 Completed [facility] Influenza Virus Vaccine 2015-04-24 00:00:00 Completed [facility] Influenza Virus Vaccine (3+ yrs) 2015-04-24 00:00:00 Completed [facility] Influenza Virus Vaccine 2015-04-24 00:00:00 Completed [facility] Influenza Virus Vaccine (3+ yrs) 2015-04-24 00:00:00 Completed [facility] Influenza Virus Vaccine 2015-04-24 00:00:00 Completed [facility] Influenza Virus Vaccine (3+ yrs) 2015-04-24 00:00:00 Completed [facility] Influenza Virus Vaccine 2015-04-24 00:00:00 Completed [facility] Influenza Virus Vaccine (3+ yrs) 2015-04-24 00:00:00 Completed [facility] Influenza Virus Vaccine 2015-04-24 00:00:00 Completed [facility] Influenza Virus Vaccine (3+ yrs) 2015-04-24 00:00:00 Completed [facility] Influenza Virus Vaccine 2015-04-24 00:00:00 Completed [facility] Influenza Virus Vaccine 2014-03-30 00:00:00 Completed [facility] Influenza Virus Vaccine 2014-03-30 00:00:00 Completed [facility] Influenza Virus Vaccine 2014-03-30 00:00:00 Completed [facility] Influenza Virus Vaccine 2014-03-30 00:00:00 Completed [facility] Influenza Virus Vaccine 2014-03-30 00:00:00 Completed [facility] Influenza Virus Vaccine 2014-03-30 00:00:00 Completed [facility] Influenza Virus Vaccine 2014-03-30 00:00:00 Completed [facility] Influenza Virus Vaccine 2014-03-30 00:00:00 Completed [facility] Influenza Virus Vaccine 2014-03-30 00:00:[address] [facility] Influenza Virus Vaccine 2014-03-30 00:00:[address] [facility] Influenza Virus Vaccine 2014-03-30 00:00:00 Completed [facility] Influenza Virus Vaccine 2014-03-30 00:00:00 Completed [facility] Influenza Virus Vaccine 2014-03-30 00:00:00 Completed [facility] Influenza Virus Vaccine 2014-03-30 00:00:00 Completed [facility] Influenza Virus Vaccine 2014-03-30 00:00:00 Completed [facility] Influenza Virus Vaccine 2014-03-30 00:00:00 Completed [facility] Influenza Virus Vaccine 2014-03-30 00:00:00 Completed [facility] Influenza Virus Vaccine 2014-03-30 00:00:00 Completed [facility] Influenza Virus Vaccine 2014-03-30 00:00:00 Completed [facility] Influenza Virus Vaccine 2014-03-30 00:00:00 Completed [facility] Influenza Virus Vaccine 2014-03-30 00:00:00 Completed [facility] Influenza Virus Vaccine 2014-03-30 00:00:00 Completed [facility] Influenza Virus Vaccine 2014-03-30 00:00:00 Completed [facility] Influenza Virus Vaccine 2014-03-30 00:00:00 Completed [facility] Influenza Virus Vaccine 2014-03-30 00:00:00 Completed [facility] Influenza Virus Vaccine 2014-03-30 00:00:00 Completed [facility] Influenza Virus Vaccine 2014-03-30 00:00:00 Completed [facility] Influenza Virus Vaccine 2014-03-30 00:00:00 Completed [facility] Influenza Virus Vaccine 2014-03-30 00:00:00 Completed [facility] Influenza Virus Vaccine 2014-03-30 00:00:00 Completed [facility] Influenza Virus Vaccine 2014-03-30 00:00:00 Completed [facility] Influenza Virus Vaccine 2014-03-30 00:00:00 Completed [facility] Influenza Virus Vaccine 2014-03-30 00:00:00 Completed [facility] Influenza Virus Vaccine 2014-03-30 00:00:00 Completed [facility] Influenza Virus Vaccine 2014-03-30 00:00:00 Completed [facility] Influenza Virus Vaccine 2014-03-30 00:00:00 Completed [facility] Influenza Virus Vaccine 2014-03-30 00:00:00 Completed [facility] Influenza Virus Vaccine 2014-03-30 00:00:00 Completed [facility] Influenza Virus Vaccine 2014-03-30 00:00:00 Completed [facility] Influenza Virus Vaccine 2014-03-30 00:00:00 Completed [facility] Influenza Virus Vaccine 2014-03-30 00:00:00 Completed [facility] Influenza Virus Vaccine 2014-03-30 00:00:[address] [facility] Influenza Virus Vaccine 2014-03-30 00:00:[address] [facility] Influenza Virus Vaccine 2014-03-30 00:00:00 Completed [facility] Influenza Virus Vaccine 2014-03-30 00:00:[address] [facility] Influenza Virus Vaccine 2014-03-30 00:00:00 Completed [facility] Influenza Virus Vaccine 2014-03-30 00:00:00 Completed [facility] Influenza Virus Vaccine 2014-03-30 00:00:00 Completed [facility] Influenza Virus Vaccine 2014-03-30 00:00:00 Completed [facility] Influenza Virus Vaccine 2014-03-30 00:00:00 Completed [facility] Influenza Virus Vaccine 2014-03-30 00:00:00 Completed [facility] Influenza Virus Vaccine 2014-03-30 00:00:00 Completed [facility] Influenza Virus Vaccine 2014-03-30 00:00:00 Completed [facility] Influenza Virus Vaccine 2014-03-30 00:00:00 Completed [facility] Influenza Virus Vaccine 2014-03-30 00:00:00 Completed [facility] Influenza Virus Vaccine 2014-03-30 00:00:00 Completed [facility] Influenza Virus Vaccine 2014-03-30 00:00:00 Completed [facility] Influenza Virus Vaccine 2014-03-30 00:00:00 Completed [facility] Influenza Virus Vaccine 2014-03-30 00:00:00 Completed [facility] Influenza Virus Vaccine 2014-03-30 00:00:00 Completed [facility] Influenza Virus Vaccine 2014-03-30 00:00:00 Completed [facility] Influenza Virus Vaccine 2014-03-30 00:00:00 Completed [facility] Influenza Virus Vaccine 2014-03-30 00:00:[address] [facility] Influenza Virus Vaccine 2014-03-30 00:00:00 Completed [facility] Influenza Virus Vaccine 2014-03-30 00:00:[address] [facility] Influenza Virus Vaccine 2014-03-30 00:00:00 Completed [facility] Influenza Virus Vaccine 2014-03-30 00:00:00 Completed [facility] Influenza Virus Vaccine 2014-03-30 00:00:00 Completed [facility] Influenza Virus Vaccine 2014-03-30 00:00:00 Completed [facility] Influenza Virus Vaccine 2014-03-30 00:00:00 Completed [facility] Influenza Virus Vaccine 2014-03-30 00:00:00 Completed [facility] Influenza Virus Vaccine 2014-03-30 00:00:00 Completed [facility] Influenza Virus Vaccine 2014-03-30 00:00:00 Completed [facility] Influenza Virus Vaccine 2014-03-30 00:00:00 Completed [facility] Influenza Virus Vaccine 2014-03-30 00:00:00 Completed [facility] Influenza Virus Vaccine 2014-03-30 00:00:00 Completed [facility] Influenza Virus Vaccine 2014-03-30 00:00:00 Completed [facility] Influenza Virus Vaccine 2014-03-30 00:00:00 Completed [facility] Influenza Virus Vaccine 2014-03-30 00:00:00 Completed [facility] Influenza Virus Vaccine 2014-03-30 00:00:00 Completed [facility] Influenza Virus Vaccine 2014-03-30 00:00:00 Completed [facility] Influenza Virus Vaccine 2014-03-30 00:00:00 Completed [facility] Influenza Virus Vaccine 2014-03-30 00:00:00 Completed [facility] Influenza Virus Vaccine 2014-03-30 00:00:00 Completed [facility] Influenza Virus Vaccine 2014-03-30 00:00:00 Completed [facility] Influenza Virus Vaccine 2014-03-30 00:00:00 Completed [facility] Influenza Virus Vaccine 2014-03-30 00:00:00 Completed [facility] Influenza Virus Vaccine 2014-03-30 00:00:00 Completed [facility] Influenza Virus Vaccine 2014-03-30 00:00:00 Completed [facility] Influenza Virus Vaccine 2014-03-30 00:00:00 Completed [facility] Influenza Virus Vaccine 2014-03-30 00:00:00 Completed [facility] Influenza Virus Vaccine 2014-03-30 00:00:00 Completed [facility] Influenza Virus Vaccine 2014-03-30 00:00:00 Completed [facility] Influenza Virus Vaccine 2014-03-30 00:00:00 Completed [facility] Influenza Virus Vaccine 2014-03-30 00:00:00 Completed [facility] Influenza Virus Vaccine 2013-05-03 00:00:00 Completed [facility] Influenza Virus Vaccine 2013-05-03 00:00:00 Completed [facility] Influenza Virus Vaccine 2013-05-03 00:00:00 Completed [facility] Influenza Virus Vaccine 2013-05-03 00:00:00 Completed [facility] Influenza Virus Vaccine 2013-05-03 00:00:00 Completed [facility] Influenza Virus Vaccine 2013-05-03 00:00:00 Completed [facility] Influenza Virus Vaccine 2013-05-03 00:00:00 Completed [facility] Influenza Virus Vaccine 2013-05-03 00:00:00 Completed [facility] Influenza Virus Vaccine 2013-05-03 00:00:00 Completed [facility] Influenza Virus Vaccine 2013-05-03 00:00:00 Completed [facility] Influenza Virus Vaccine 2013-05-03 00:00:00 Completed [facility] Influenza Virus Vaccine 2013-05-03 00:00:00 Completed [facility] Influenza Virus Vaccine 2013-05-03 00:00:00 Completed [facility] Influenza Virus Vaccine 2013-05-03 00:00:00 Completed [facility] Influenza Virus Vaccine 2013-05-03 00:00:00 Completed [facility] Influenza Virus Vaccine 2013-05-03 00:00:00 Completed [facility] Influenza Virus Vaccine 2013-05-03 00:00:00 Completed [facility] Influenza Virus Vaccine 2013-05-03 00:00:00 Completed [facility] Influenza Virus Vaccine 2013-05-03 00:00:00 Completed [facility] Influenza Virus Vaccine 2013-05-03 00:00:00 Completed [facility] Influenza Virus Vaccine 2013-05-03 00:00:00 Completed [facility] Influenza Virus Vaccine 2013-05-03 00:00:00 Completed [facility] Influenza Virus Vaccine 2013-05-03 00:00:00 Completed [facility] Influenza Virus Vaccine 2013-05-03 00:00:00 Completed [facility] Influenza Virus Vaccine 2013-05-03 00:00:[address] [facility] Influenza Virus Vaccine 2013-05-03 00:00:[address] [facility] Influenza Virus Vaccine 2013-05-03 00:00:[address] [facility] Influenza Virus Vaccine 2013-05-03 00:00:[address] [facility] Influenza Virus Vaccine 2013-05-03 00:00:[address] [facility] Influenza Virus Vaccine 2013-05-03 00:00:[address] [facility] Influenza Virus Vaccine 2013-05-03 00:00:00 Completed [facility] Influenza Virus Vaccine 2013-05-03 00:00:00 Completed [facility] Influenza Virus Vaccine 2013-05-03 00:00:00 Completed [facility] Influenza Virus Vaccine 2013-05-03 00:00:00 Completed [facility] Influenza Virus Vaccine 2013-05-03 00:00:00 Completed [facility] Influenza Virus Vaccine 2013-05-03 00:00:00 Completed [facility] Influenza Virus Vaccine 2013-05-03 00:00:00 Completed [facility] Influenza Virus Vaccine 2013-05-03 00:00:00 Completed [facility] Influenza Virus Vaccine 2013-05-03 00:00:[address] [facility] Influenza Virus Vaccine 2013-05-03 00:00:[address] [facility] Influenza Virus Vaccine 2013-05-03 00:00:[address] [facility] Influenza Virus Vaccine 2013-05-03 00:00:[address] [facility] Influenza Virus Vaccine 2013-05-03 00:00:[address] [facility] Influenza Virus Vaccine 2013-05-03 00:00:[address] [facility] Influenza Virus Vaccine 2013-05-03 00:00:[address] [facility] Influenza Virus Vaccine 2013-05-03 00:00:[address] [facility] Influenza Virus Vaccine 2013-05-03 00:00:[address] [facility] Influenza Virus Vaccine 2013-05-03 00:00:[address] [facility] Influenza Virus Vaccine 2013-05-03 00:00:[address] [facility] Influenza Virus Vaccine 2013-05-03 00:00:00 Completed [facility] Influenza Virus Vaccine 2013-05-03 00:00:00 Completed [facility] Influenza Virus Vaccine 2013-05-03 00:00:[address] [facility] Influenza Virus Vaccine 2013-05-03 00:00:[address] [facility] Influenza Virus Vaccine 2013-05-03 00:00:00 Completed [facility] Influenza Virus Vaccine 2013-05-03 00:00:[address] [facility] Influenza Virus Vaccine 2013-05-03 00:00:[address] [facility] Influenza Virus Vaccine 2013-05-03 00:00:[address] [facility] Influenza Virus Vaccine 2013-05-03 00:00:00 Completed [facility] Influenza Virus Vaccine 2013-05-03 00:00:00 Completed [facility] Influenza Virus Vaccine 2013-05-03 00:00:00 Completed [facility] Influenza Virus Vaccine 2013-05-03 00:00:00 Completed [facility] Influenza Virus Vaccine 2013-05-03 00:00:00 Completed [facility] Influenza Virus Vaccine 2013-05-03 00:00:00 Completed [facility] Influenza Virus Vaccine 2013-05-03 00:00:00 Completed [facility] Influenza Virus Vaccine 2013-05-03 00:00:00 Completed [facility] Influenza Virus Vaccine 2013-05-03 00:00:[address] [facility] Influenza Virus Vaccine 2013-05-03 00:00:[address] [facility] Influenza Virus Vaccine 2013-05-03 00:00:[address] [facility] Influenza Virus Vaccine 2013-05-03 00:00:[address] [facility] Influenza Virus Vaccine 2013-05-03 00:00:[address] [facility] Influenza Virus Vaccine 2013-05-03 00:00:[address] [facility] Influenza Virus Vaccine 2013-05-03 00:00:[address] [facility] Influenza Virus Vaccine 2013-05-03 00:00:[address] [facility] Influenza Virus Vaccine 2013-05-03 00:00:[address] [facility] Influenza Virus Vaccine 2013-05-03 00:00:[address] [facility] Influenza Virus Vaccine 2013-05-03 00:00:[address] [facility] Influenza Virus Vaccine 2013-05-03 00:00:00 Completed [facility] Influenza Virus Vaccine 2013-05-03 00:00:00 Completed [facility] Influenza Virus Vaccine 2013-05-03 00:00:00 Completed [facility] Influenza Virus Vaccine 2013-05-03 00:00:00 Completed [facility] Influenza Virus Vaccine 2013-05-03 00:00:00 Completed [facility] Influenza Virus Vaccine 2013-05-03 00:00:00 Completed [facility] Influenza Virus Vaccine 2013-05-03 00:00:00 Completed [facility] Influenza Virus Vaccine 2013-05-03 00:00:00 Completed [facility] Influenza Virus Vaccine 2013-05-03 00:00:00 Completed [facility] Influenza Virus Vaccine 2013-05-03 00:00:00 Completed [facility] Influenza Virus Vaccine 2013-05-03 00:00:00 Completed [facility] Influenza Virus Vaccine 2013-05-03 00:00:00 Completed [facility] Influenza Virus Vaccine 2013-05-03 00:00:00 Completed [facility] Influenza Virus Vaccine 2013-05-03 00:00:00 Completed [facility] Influenza Virus Vaccine 2013-05-03 00:00:00 Completed [facility] Influenza Virus Vaccine 2013-05-03 00:00:00 Completed [facility] Influenza Virus Vaccine 2013-05-03 00:00:00 Completed [facility] Influenza Virus Vaccine 2013-05-03 00:00:00 Completed [facility] Influenza Virus Vaccine 2013-05-03 00:00:00 Completed [facility] TDAP Unknown Completed [facility] Influenza Virus Vaccine (3+ yrs) Unknown Completed [facility] Influenza Virus Vaccine Unknown Completed [facility] TD, NOS Unknown Completed [facility] Influenza Virus Vaccine Quad .5 mL IM 6+ MO (FLUZONE/FLULAVAL/F LUARIX) Unknown Completed [facility] Pneumococcal Polysaccharide, PPSV23 (PNEUMOVAX) Unknown Completed [facility] SARS-COV-2 COVID-19 PFIZER VACCINE Unknown Completed [facility] SARS-COV-2 COVID-19 PFIZER VACCINE Unknown Completed [facility] Influenza Virus Vaccine (3+ yrs) Unknown Completed [facility] Influenza Virus Vaccine Unknown Completed [facility] Influenza Virus Vaccine Unknown Completed [facility] Influenza Virus Vaccine Unknown Completed [facility] Influenza Virus Vaccine Quad IM, Preserv and ABX Free 6 MO-64 YRS (FLUCELVAX) Unknown Completed [facility] TDAP Unknown Completed [facility] Influenza Virus Vaccine (3+ yrs) Unknown Completed [facility] Influenza Virus Vaccine Unknown Completed [facility] TD, NOS Unknown Completed [facility] Influenza Virus Vaccine Quad .5 mL IM 6+ MO (FLUZONE/FLULAVAL/F LUARIX) Unknown Completed [facility] Pneumococcal Polysaccharide, PPSV23 (PNEUMOVAX) Unknown Completed [facility] SARS-COV-2 COVID-19 PFIZER VACCINE Unknown Completed [facility] SARS-COV-2 COVID-19 PFIZER VACCINE Unknown Completed [facility] Influenza Virus Vaccine (3+ yrs) Unknown Completed [facility] Influenza Virus Vaccine Unknown Completed [facility] Influenza Virus Vaccine Unknown Completed [facility] Influenza Virus Vaccine Unknown Completed [facility] TDAP Unknown Completed [facility] Influenza Virus Vaccine (3+ yrs) Unknown Completed [facility] Influenza Virus Vaccine Unknown Completed [facility] TD, NOS Unknown Completed [facility] Influenza Virus Vaccine Quad .5 mL IM 6+ MO (FLUZONE/FLULAVAL/F LUARIX) Unknown Completed [facility] Pneumococcal Polysaccharide, PPSV23 (PNEUMOVAX) Unknown Completed [facility] SARS-COV-2 COVID-19 PFIZER VACCINE Unknown Completed [facility] SARS-COV-2 COVID-19 PFIZER VACCINE Unknown Completed [facility] Influenza Virus Vaccine (3+ yrs) Unknown Completed [facility] Influenza Virus Vaccine Unknown Completed [facility] Influenza Virus Vaccine Unknown Completed [facility] Influenza Virus Vaccine Unknown Completed [facility] TDAP Unknown Completed [facility] Influenza Virus Vaccine (3+ yrs) Unknown Completed [facility] Influenza Virus Vaccine Unknown Completed [facility] TD, NOS Unknown Completed [facility] Influenza Virus Vaccine Quad .5 mL IM 6+ MO (FLUZONE/FLULAVAL/F LUARIX) Unknown Completed [facility] Pneumococcal Polysaccharide, PPSV23 (PNEUMOVAX) Unknown Completed [facility] SARS-COV-2 COVID-19 PFIZER VACCINE Unknown Completed [facility] SARS-COV-2 COVID-19 PFIZER VACCINE Unknown Completed [facility] Influenza Virus Vaccine (3+ yrs) Unknown Completed [facility] Influenza Virus Vaccine Unknown Completed [facility] Influenza Virus Vaccine Unknown Completed [facility] Influenza Virus Vaccine Unknown Completed [facility] TDAP Unknown Completed [facility] Influenza Virus Vaccine (3+ yrs) Unknown Completed [facility] Influenza Virus Vaccine Unknown Completed [facility] TD, NOS Unknown Completed [facility] Influenza Virus Vaccine Quad .5 mL IM 6+ MO (FLUZONE/FLULAVAL/F LUARIX) Unknown Completed [facility] Pneumococcal Polysaccharide, PPSV23 (PNEUMOVAX) Unknown Completed [facility] SARS-COV-2 COVID-19 PFIZER VACCINE Unknown Completed [facility] SARS-COV-2 COVID-19 PFIZER VACCINE Unknown Completed [facility] Influenza Virus Vaccine (3+ yrs) Unknown Completed [facility] Influenza Virus Vaccine Unknown Completed [facility] Influenza Virus Vaccine Unknown Completed [facility] Influenza Virus Vaccine Unknown Completed [facility] TDAP Unknown Completed [facility] Influenza Virus Vaccine (3+ yrs) Unknown Completed [facility] Influenza Virus Vaccine Unknown Completed [facility] TD, NOS Unknown Completed [facility] Influenza Virus Vaccine Quad .5 mL IM 6+ MO (FLUZONE/FLULAVAL/F LUARIX) Unknown Completed [facility] Pneumococcal Polysaccharide, PPSV23 (PNEUMOVAX) Unknown Completed [facility] SARS-COV-2 COVID-19 PFIZER VACCINE Unknown Completed [facility] SARS-COV-2 COVID-19 PFIZER VACCINE Unknown Completed [facility] Influenza Virus Vaccine (3+ yrs) Unknown Completed [facility] Influenza Virus Vaccine Unknown Completed [facility] Influenza Virus Vaccine Unknown Completed [facility] Influenza Virus Vaccine Unknown Completed [facility] TDAP Unknown Completed [facility] Influenza Virus Vaccine (3+ yrs) Unknown Completed [facility] Influenza Virus Vaccine Unknown Completed [facility] TD, NOS Unknown Completed [facility] Influenza Virus Vaccine Quad .5 mL IM 6+ MO (FLUZONE/FLULAVAL/F LUARIX) Unknown Completed [facility] Pneumococcal Polysaccharide, PPSV23 (PNEUMOVAX) Unknown Completed [facility] SARS-COV-2 COVID-19 PFIZER VACCINE Unknown Completed [facility] SARS-COV-2 COVID-19 PFIZER VACCINE Unknown Completed [facility] Influenza Virus Vaccine (3+ yrs) Unknown Completed [facility] Influenza Virus Vaccine Unknown Completed [facility] Influenza Virus Vaccine Unknown Completed [facility] Influenza Virus Vaccine Unknown Completed [facility] TDAP Unknown Completed [facility] Influenza Virus Vaccine (3+ yrs) Unknown Completed [facility] Influenza Virus Vaccine Unknown Completed [facility] TD, NOS Unknown Completed [facility] Influenza Virus Vaccine Quad .5 mL IM 6+ MO (FLUZONE/FLULAVAL/F LUARIX) Unknown Completed [facility] Pneumococcal Polysaccharide, PPSV23 (PNEUMOVAX) Unknown Completed [facility] Influenza Virus Vaccine (3+ yrs) Unknown Completed [facility] Influenza Virus Vaccine Unknown Completed [facility] Influenza Virus Vaccine Unknown Completed [facility] Influenza Virus Vaccine Unknown Completed [facility] TDAP Unknown Completed [facility] Influenza Virus Vaccine (3+ yrs) Unknown Completed [facility] Influenza Virus Vaccine Unknown Completed [facility] TD, NOS Unknown Completed [facility] Influenza Virus Vaccine Quad .5 mL IM 6+ MO (FLUZONE/FLULAVAL/F LUARIX) Unknown Completed [facility] Pneumococcal Polysaccharide, PPSV23 (PNEUMOVAX) Unknown Completed [facility] SARS-COV-2 COVID-19 PFIZER VACCINE Unknown Completed [facility] SARS-COV-2 COVID-19 PFIZER VACCINE Unknown Completed [facility] Influenza Virus Vaccine (3+ yrs) Unknown Completed [facility] Influenza Virus Vaccine Unknown Completed [facility] Influenza Virus Vaccine Unknown Completed [facility] Influenza Virus Vaccine Unknown Completed [facility] Influenza Virus Vaccine Quad IM, Preserv and ABX Free 6 MO-64 YRS (FLUCELVAX) Unknown Completed [facility] Influenza Virus Vaccine Quad IM, Preserv and ABX Free 6 MO-64 YRS (FLUCELVAX) Unknown Completed [facility] TDAP Unknown Completed [facility] Influenza Virus Vaccine (3+ yrs) Unknown Completed [facility] Influenza Virus Vaccine Unknown Completed [facility] TD, NOS Unknown Completed [facility] Influenza Virus Vaccine Quad .5 mL IM 6+ MO (FLUZONE/FLULAVAL/F LUARIX) Unknown Completed [facility] Pneumococcal Polysaccharide, PPSV23 (PNEUMOVAX) Unknown Completed [facility] SARS-COV-2 COVID-19 PFIZER VACCINE Unknown Completed [facility] SARS-COV-2 COVID-19 PFIZER VACCINE Unknown Completed [facility] Influenza Virus Vaccine (3+ yrs) Unknown Completed [facility] Influenza Virus Vaccine Unknown Completed [facility] Influenza Virus Vaccine Unknown Completed [facility] Influenza Virus Vaccine Unknown Completed [facility] Influenza Virus Vaccine Quad IM, Preserv and ABX Free 6 MO-64 YRS (FLUCELVAX) Unknown Completed [facility] Influenza Virus Vaccine Quad IM, Preserv and ABX Free 6 MO-64 YRS (FLUCELVAX) Unknown Completed [facility] TDAP Unknown Completed [facility] Influenza Virus Vaccine (3+ yrs) Unknown Completed [facility] Influenza Virus Vaccine Unknown Completed [facility] TD, NOS Unknown Completed [facility] Influenza Virus Vaccine Quad .5 mL IM 6+ MO (FLUZONE/FLULAVAL/F LUARIX) Unknown Completed [facility] Pneumococcal Polysaccharide, PPSV23 (PNEUMOVAX) Unknown Completed [facility] SARS-COV-2 COVID-19 PFIZER VACCINE Unknown Completed [facility] SARS-COV-2 COVID-19 PFIZER VACCINE Unknown Completed [facility] Influenza Virus Vaccine (3+ yrs) Unknown Completed [facility] Influenza Virus Vaccine Unknown Completed [facility] Influenza Virus Vaccine Unknown Completed [facility] Influenza Virus Vaccine Unknown Completed [facility] Influenza Virus Vaccine Quad IM, Preserv and ABX Free 6 MO-64 YRS (FLUCELVAX) Unknown Completed [facility] Influenza Virus Vaccine Quad IM, Preserv and ABX Free 6 MO-64 YRS (FLUCELVAX) Unknown Completed [facility] TDAP Unknown Completed [facility] Influenza Virus Vaccine (3+ yrs) Unknown Completed [facility] Influenza Virus Vaccine Unknown Completed [facility] TD, NOS Unknown Completed [facility] Influenza Virus Vaccine Quad .5 mL IM 6+ MO (FLUZONE/FLULAVAL/F LUARIX) Unknown Completed [facility] Pneumococcal Polysaccharide, PPSV23 (PNEUMOVAX) Unknown Completed [facility] SARS-COV-2 COVID-19 PFIZER VACCINE Unknown Completed [facility] SARS-COV-2 COVID-19 PFIZER VACCINE Unknown Completed [facility] Influenza Virus Vaccine (3+ yrs) Unknown Completed [facility] Influenza Virus Vaccine Unknown Completed [facility] Influenza Virus Vaccine Unknown Completed [facility] Influenza Virus Vaccine Unknown Completed [facility] Influenza Virus Vaccine Quad IM, Preserv and ABX Free 6 MO-64 YRS (FLUCELVAX) Unknown Completed [facility] Influenza Virus Vaccine Quad IM, Preserv and ABX Free 6 MO-64 YRS (FLUCELVAX) Unknown Completed [facility] TDAP Unknown Completed [facility] Influenza Virus Vaccine (3+ yrs) Unknown Completed [facility] Influenza Virus Vaccine Unknown Completed [facility] TD, NOS Unknown Completed [facility] Influenza Virus Vaccine Quad .5 mL IM 6+ MO (FLUZONE/FLULAVAL/F LUARIX) Unknown Completed [facility] Pneumococcal Polysaccharide, PPSV23 (PNEUMOVAX) Unknown Completed [facility] SARS-COV-2 COVID-19 PFIZER VACCINE Unknown Completed [facility] SARS-COV-2 COVID-19 PFIZER VACCINE Unknown Completed [facility] Influenza Virus Vaccine (3+ yrs) Unknown Completed [facility] Influenza Virus Vaccine Unknown Completed [facility] Influenza Virus Vaccine Unknown Completed [facility] Influenza Virus Vaccine Unknown Completed [facility] Influenza Virus Vaccine Quad IM, Preserv and ABX Free 6 MO-64 YRS (FLUCELVAX) Unknown Completed [facility] Influenza Virus Vaccine Quad IM, Preserv and ABX Free 6 MO-64 YRS (FLUCELVAX) Unknown Completed [facility] TDAP Unknown Completed [facility] Influenza Virus Vaccine (3+ yrs) Unknown Completed [facility] Influenza Virus Vaccine Unknown Completed [facility] TD, NOS Unknown Completed [facility] Influenza Virus Vaccine Quad .5 mL IM 6+ MO (FLUZONE/FLULAVAL/F LUARIX) Unknown Completed [facility] Pneumococcal Polysaccharide, PPSV23 (PNEUMOVAX) Unknown Completed [facility] SARS-COV-2 COVID-19 PFIZER VACCINE Unknown Completed [facility] SARS-COV-2 COVID-19 PFIZER VACCINE Unknown Completed [facility] Influenza Virus Vaccine (3+ yrs) Unknown Completed [facility] Influenza Virus Vaccine Unknown Completed [facility] Influenza Virus Vaccine Unknown Completed [facility] Influenza Virus Vaccine Unknown Completed [facility] Influenza Virus Vaccine Quad IM, Preserv and ABX Free 6 MO-64 YRS (FLUCELVAX) Unknown Completed [facility] Influenza Virus Vaccine Quad IM, Preserv and ABX Free 6 MO-64 YRS (FLUCELVAX) Unknown Completed [facility] TDAP Unknown Completed [facility] Influenza Virus Vaccine (3+ yrs) Unknown Completed [facility] Influenza Virus Vaccine Unknown Completed [facility] TD, NOS Unknown Completed [facility] Influenza Virus Vaccine Quad .5 mL IM 6+ MO (FLUZONE/FLULAVAL/F LUARIX) Unknown Completed [facility] Pneumococcal Polysaccharide, PPSV23 (PNEUMOVAX) Unknown Completed [facility] SARS-COV-2 COVID-19 PFIZER VACCINE Unknown Completed [facility] SARS-COV-2 COVID-19 PFIZER VACCINE Unknown Completed [facility] Influenza Virus Vaccine (3+ yrs) Unknown Completed [facility] Influenza Virus Vaccine Unknown Completed [facility] Influenza Virus Vaccine Unknown Completed [facility] Influenza Virus Vaccine Unknown Completed [facility] Influenza Virus Vaccine Quad IM, Preserv and ABX Free 6 MO-64 YRS (FLUCELVAX) Unknown Completed [facility] Influenza Virus Vaccine Quad IM, Preserv and ABX Free 6 MO-64 YRS (FLUCELVAX) Unknown Completed [facility] TDAP Unknown Completed [facility] Influenza Virus Vaccine (3+ yrs) Unknown Completed [facility] Influenza Virus Vaccine Unknown Completed [facility] TD, NOS Unknown Completed [facility] Influenza Virus Vaccine Quad .5 mL IM 6+ MO (FLUZONE/FLULAVAL/F LUARIX) Unknown Completed [facility] Pneumococcal Polysaccharide, PPSV23 (PNEUMOVAX) Unknown Completed [facility] SARS-COV-2 COVID-19 PFIZER VACCINE Unknown Completed [facility] SARS-COV-2 COVID-19 PFIZER VACCINE Unknown Completed [facility] Influenza Virus Vaccine (3+ yrs) Unknown Completed [facility] Influenza Virus Vaccine Unknown Completed [facility] Influenza Virus Vaccine Unknown Completed [facility] Influenza Virus Vaccine Unknown Completed [facility] Influenza Virus Vaccine Quad IM, Preserv and ABX Free 6 MO-64 YRS (FLUCELVAX) Unknown Completed [facility] Influenza Virus Vaccine Quad IM, Preserv and ABX Free 6 MO-64 YRS (FLUCELVAX) Unknown Completed [facility] TDAP Unknown Completed [facility] Influenza Virus Vaccine (3+ yrs) Unknown Completed [facility] Influenza Virus Vaccine Unknown Completed [facility] TD, NOS Unknown Completed [facility] Influenza Virus Vaccine Quad .5 mL IM 6+ MO (FLUZONE/FLULAVAL/F LUARIX) Unknown Completed [facility] Pneumococcal Polysaccharide, PPSV23 (PNEUMOVAX) Unknown Completed [facility] SARS-COV-2 COVID-19 PFIZER VACCINE Unknown Completed [facility] SARS-COV-2 COVID-19 PFIZER VACCINE Unknown Completed [facility] Influenza Virus Vaccine (3+ yrs) Unknown Completed [facility] Influenza Virus Vaccine Unknown Completed [facility] Influenza Virus Vaccine Unknown Completed [facility] Influenza Virus Vaccine Unknown Completed [facility] Influenza Virus Vaccine Quad IM, Preserv and ABX Free 6 MO-64 YRS (FLUCELVAX) Unknown Completed [facility] Influenza Virus Vaccine Quad IM, Preserv and ABX Free 6 MO-64 YRS (FLUCELVAX) Unknown Completed [facility] TDAP Unknown Completed [facility] Influenza Virus Vaccine (3+ yrs) Unknown Completed [facility] Influenza Virus Vaccine Unknown Completed [facility] TD, NOS Unknown Completed [facility] Influenza Virus Vaccine Quad .5 mL IM 6+ MO (FLUZONE/FLULAVAL/F LUARIX) Unknown Completed [facility] Pneumococcal Polysaccharide, PPSV23 (PNEUMOVAX) Unknown Completed [facility] SARS-COV-2 COVID-19 PFIZER VACCINE Unknown Completed [facility] SARS-COV-2 COVID-19 PFIZER VACCINE Unknown Completed [facility] Influenza Virus Vaccine (3+ yrs) Unknown Completed [facility] Influenza Virus Vaccine Unknown Completed [facility] Influenza Virus Vaccine Unknown Completed [facility] Influenza Virus Vaccine Unknown Completed [facility] Influenza Virus Vaccine Quad IM, Preserv and ABX Free 6 MO-64 YRS (FLUCELVAX) Unknown Completed [facility] Influenza Virus Vaccine Quad IM, Preserv and ABX Free 6 MO-64 YRS (FLUCELVAX) Unknown Completed [facility] TDAP Unknown Completed [facility] Influenza Virus Vaccine (3+ yrs) Unknown Completed [facility] Influenza Virus Vaccine Unknown Completed [facility] TD, NOS Unknown Completed [facility] Influenza Virus Vaccine Quad .5 mL IM 6+ MO (FLUZONE/FLULAVAL/F LUARIX) Unknown Completed [facility] Pneumococcal Polysaccharide, PPSV23 (PNEUMOVAX) Unknown Completed [facility] SARS-COV-2 COVID-19 PFIZER VACCINE Unknown Completed [facility] SARS-COV-2 COVID-19 PFIZER VACCINE Unknown Completed [facility] Influenza Virus Vaccine (3+ yrs) Unknown Completed [facility] Influenza Virus Vaccine Unknown Completed [facility] Influenza Virus Vaccine Unknown Completed [facility] Influenza Virus Vaccine Unknown Completed [facility] Influenza Virus Vaccine Quad IM, Preserv and ABX Free 6 MO-64 YRS (FLUCELVAX) Unknown Completed [facility] Influenza Virus Vaccine Quad IM, Preserv and ABX Free 6 MO-64 YRS (FLUCELVAX) Unknown Completed [facility] TDAP Unknown Completed [facility] Influenza Virus Vaccine (3+ yrs) Unknown Completed [facility] Influenza Virus Vaccine Unknown Completed [facility] TD, NOS Unknown Completed [facility] Influenza Virus Vaccine Quad .5 mL IM 6+ MO (FLUZONE/FLULAVAL/F LUARIX) Unknown Completed [facility] Pneumococcal Polysaccharide, PPSV23 (PNEUMOVAX) Unknown Completed [facility] SARS-COV-2 COVID-19 PFIZER VACCINE Unknown Completed [facility] SARS-COV-2 COVID-19 PFIZER VACCINE Unknown Completed [facility] Influenza Virus Vaccine (3+ yrs) Unknown Completed [facility] Influenza Virus Vaccine Unknown Completed [facility] Influenza Virus Vaccine Unknown Completed [facility] Influenza Virus Vaccine Unknown Completed [facility] Influenza Virus Vaccine Quad IM, Preserv and ABX Free 6 MO-64 YRS (FLUCELVAX) Unknown Completed [facility] Influenza Virus Vaccine Quad IM, Preserv and ABX Free 6 MO-64 YRS (FLUCELVAX) Unknown Completed [facility] TDAP Unknown Completed [facility] Influenza Virus Vaccine (3+ yrs) Unknown Completed [facility] Influenza Virus Vaccine Unknown Completed [facility] TD, NOS Unknown Completed [facility] Influenza Virus Vaccine Quad .5 mL IM 6+ MO (FLUZONE/FLULAVAL/F LUARIX) Unknown Completed [facility] Pneumococcal Polysaccharide, PPSV23 (PNEUMOVAX) Unknown Completed [facility] SARS-COV-2 COVID-19 PFIZER VACCINE Unknown Completed [facility] SARS-COV-2 COVID-19 PFIZER VACCINE Unknown Completed [facility] Influenza Virus Vaccine (3+ yrs) Unknown Completed [facility] Influenza Virus Vaccine Unknown Completed [facility] Influenza Virus Vaccine Unknown Completed [facility] Influenza Virus Vaccine Unknown Completed [facility] Influenza Virus Vaccine Quad IM, Preserv and ABX Free 6 MO-64 YRS (FLUCELVAX) Unknown Completed [facility] Influenza Virus Vaccine Quad IM, Preserv and ABX Free 6 MO-64 YRS (FLUCELVAX) Unknown Completed [facility] TDAP Unknown Completed [facility] Influenza Virus Vaccine (3+ yrs) Unknown Completed [facility] Influenza Virus Vaccine Unknown Completed [facility] TD, NOS Unknown Completed [facility] Influenza Virus Vaccine Quad .5 mL IM 6+ MO (FLUZONE/FLULAVAL/F LUARIX) Unknown Completed [facility] Pneumococcal Polysaccharide, PPSV23 (PNEUMOVAX) Unknown Completed [facility] SARS-COV-2 COVID-19 PFIZER VACCINE Unknown Completed [facility] SARS-COV-2 COVID-19 PFIZER VACCINE Unknown Completed [facility] Influenza Virus Vaccine (3+ yrs) Unknown Completed [facility] Influenza Virus Vaccine Unknown Completed [facility] Influenza Virus Vaccine Unknown Completed [facility] Influenza Virus Vaccine Unknown Completed [facility] Influenza Virus Vaccine Quad IM, Preserv and ABX Free 6 MO-64 YRS (FLUCELVAX) Unknown Completed [facility] Influenza Virus Vaccine Quad IM, Preserv and ABX Free 6 MO-64 YRS (FLUCELVAX) Unknown Completed [facility] TDAP Unknown Completed [facility] Influenza Virus Vaccine (3+ yrs) Unknown Completed [facility] Influenza Virus Vaccine Unknown Completed [facility] TD, NOS Unknown Completed [facility] Influenza Virus Vaccine Quad .5 mL IM 6+ MO (FLUZONE/FLULAVAL/F LUARIX) Unknown Completed [facility] Pneumococcal Polysaccharide, PPSV23 (PNEUMOVAX) Unknown Completed [facility] SARS-COV-2 COVID-19 PFIZER VACCINE Unknown Completed [facility] SARS-COV-2 COVID-19 PFIZER VACCINE Unknown Completed [facility] Influenza Virus Vaccine (3+ yrs) Unknown Completed [facility] Influenza Virus Vaccine Unknown Completed [facility] Influenza Virus Vaccine Unknown Completed [facility] Influenza Virus Vaccine Unknown Completed [facility] Influenza Virus Vaccine Quad IM, Preserv and ABX Free 6 MO-64 YRS (FLUCELVAX) Unknown Completed [facility] Influenza Virus Vaccine Quad IM, Preserv and ABX Free 6 MO-64 YRS (FLUCELVAX) Unknown Completed [facility] TDAP Unknown Completed [facility] Influenza Virus Vaccine (3+ yrs) Unknown Completed [facility] Influenza Virus Vaccine Unknown Completed [facility] TD, NOS Unknown Completed [facility] Influenza Virus Vaccine Quad .5 mL IM 6+ MO (FLUZONE/FLULAVAL/F LUARIX) Unknown Completed [facility] Pneumococcal Polysaccharide, PPSV23 (PNEUMOVAX) Unknown Completed [facility] SARS-COV-2 COVID-19 PFIZER VACCINE Unknown Completed [facility] SARS-COV-2 COVID-19 PFIZER VACCINE Unknown Completed [facility] Influenza Virus Vaccine (3+ yrs) Unknown Completed [facility] Influenza Virus Vaccine Unknown Completed [facility] Influenza Virus Vaccine Unknown Completed [facility] Influenza Virus Vaccine Unknown Completed [facility] Influenza Virus Vaccine Quad IM, Preserv and ABX Free 6 MO-64 YRS (FLUCELVAX) Unknown Completed [facility] Influenza Virus Vaccine Quad IM, Preserv and ABX Free 6 MO-64 YRS (FLUCELVAX) Unknown Completed [facility] TDAP Unknown Completed [facility] Influenza Virus Vaccine (3+ yrs) Unknown Completed [facility] Influenza Virus Vaccine Unknown Completed [facility] TD, NOS Unknown Completed [facility] Influenza Virus Vaccine Quad .5 mL IM 6+ MO (FLUZONE/FLULAVAL/F LUARIX) Unknown Completed [facility] Pneumococcal Polysaccharide, PPSV23 (PNEUMOVAX) Unknown Completed [facility] SARS-COV-2 COVID-19 PFIZER VACCINE Unknown Completed [facility] SARS-COV-2 COVID-19 PFIZER VACCINE Unknown Completed [facility] Influenza Virus Vaccine (3+ yrs) Unknown Completed [facility] Influenza Virus Vaccine Unknown Completed [facility] Influenza Virus Vaccine Unknown Completed [facility] Influenza Virus Vaccine Unknown Completed [facility] Influenza Virus Vaccine Quad IM, Preserv and ABX Free 6 MO-64 YRS (FLUCELVAX) Unknown Completed [facility] Influenza Virus Vaccine Quad IM, Preserv and ABX Free 6 MO-64 YRS (FLUCELVAX) Unknown Completed [facility] TDAP Unknown Completed [facility] Influenza Virus Vaccine (3+ yrs) Unknown Completed [facility] Influenza Virus Vaccine Unknown Completed [facility] TD, NOS Unknown Completed [facility] Influenza Virus Vaccine Quad .5 mL IM 6+ MO (FLUZONE/FLULAVAL/F LUARIX) Unknown Completed [facility] Pneumococcal Polysaccharide, PPSV23 (PNEUMOVAX) Unknown Completed [facility] SARS-COV-2 COVID-19 PFIZER VACCINE Unknown Completed [facility] SARS-COV-2 COVID-19 PFIZER VACCINE Unknown Completed [facility] Influenza Virus Vaccine (3+ yrs) Unknown Completed [facility] Influenza Virus Vaccine Unknown Completed [facility] Influenza Virus Vaccine Unknown Completed [facility] Influenza Virus Vaccine Unknown Completed [facility] Influenza Virus Vaccine Quad IM, Preserv and ABX Free 6 MO-64 YRS (FLUCELVAX) Unknown Completed [facility] Influenza Virus Vaccine Quad IM, Preserv and ABX Free 6 MO-64 YRS (FLUCELVAX) Unknown Completed [facility] TDAP Unknown Completed [facility] Influenza Virus Vaccine (3+ yrs) Unknown Completed [facility] Influenza Virus Vaccine Unknown Completed [facility] TD, NOS Unknown Completed [facility] Influenza Virus Vaccine Quad .5 mL IM 6+ MO (FLUZONE/FLULAVAL/F LUARIX) Unknown Completed [facility] Pneumococcal Polysaccharide, PPSV23 (PNEUMOVAX) Unknown Completed [facility] SARS-COV-2 COVID-19 PFIZER VACCINE Unknown Completed [facility] SARS-COV-2 COVID-19 PFIZER VACCINE Unknown Completed [facility] Influenza Virus Vaccine (3+ yrs) Unknown Completed [facility] Influenza Virus Vaccine Unknown Completed [facility] Influenza Virus Vaccine Unknown Completed [facility] Influenza Virus Vaccine Unknown Completed [facility] Influenza Virus Vaccine Quad IM, Preserv and ABX Free 6 MO-64 YRS (FLUCELVAX) Unknown Completed [facility] Influenza Virus Vaccine Quad IM, Preserv and ABX Free 6 MO-64 YRS (FLUCELVAX) Unknown Completed [facility] TDAP Unknown Completed [facility] Influenza Virus Vaccine (3+ yrs) Unknown Completed [facility] Influenza Virus Vaccine Unknown Completed [facility] TD, NOS Unknown Completed [facility] Influenza Virus Vaccine Quad .5 mL IM 6+ MO (FLUZONE/FLULAVAL/F LUARIX) Unknown Completed [facility] Pneumococcal Polysaccharide, PPSV23 (PNEUMOVAX) Unknown Completed [facility] SARS-COV-2 COVID-19 PFIZER VACCINE Unknown Completed [facility] SARS-COV-2 COVID-19 PFIZER VACCINE Unknown Completed [facility] Influenza Virus Vaccine (3+ yrs) Unknown Completed [facility] Influenza Virus Vaccine Unknown Completed [facility] Influenza Virus Vaccine Unknown Completed [facility] Influenza Virus Vaccine Unknown Completed [facility] Influenza Virus Vaccine Quad IM, Preserv and ABX Free 6 MO-64 YRS (FLUCELVAX) Unknown Completed [facility] Influenza Virus Vaccine Quad IM, Preserv and ABX Free 6 MO-64 YRS (FLUCELVAX) Unknown Completed [facility] TDAP Unknown Completed [facility] Influenza Virus Vaccine (3+ yrs) Unknown Completed [facility] Influenza Virus Vaccine Unknown Completed [facility] TD, NOS Unknown Completed [facility] Influenza Virus Vaccine Quad .5 mL IM 6+ MO (FLUZONE/FLULAVAL/F LUARIX) Unknown Completed [facility] Pneumococcal Polysaccharide, PPSV23 (PNEUMOVAX) Unknown Completed [facility] SARS-COV-2 COVID-19 PFIZER VACCINE Unknown Completed [facility] SARS-COV-2 COVID-19 PFIZER VACCINE Unknown Completed [facility] Influenza Virus Vaccine (3+ yrs) Unknown Completed [facility] Influenza Virus Vaccine Unknown Completed [facility] Influenza Virus Vaccine Unknown Completed [facility] Influenza Virus Vaccine Unknown Completed [facility] Influenza Virus Vaccine Quad IM, Preserv and ABX Free 6 MO-64 YRS (FLUCELVAX) Unknown Completed [facility] Influenza Virus Vaccine Quad IM, Preserv and ABX Free 6 MO-64 YRS (FLUCELVAX) Unknown Completed [facility] TDAP Unknown Completed [facility] Influenza Virus Vaccine (3+ yrs) Unknown Completed [facility] Influenza Virus Vaccine Unknown Completed [facility] TD, NOS Unknown Completed [facility] Influenza Virus Vaccine Quad .5 mL IM 6+ MO (FLUZONE/FLULAVAL/F LUARIX) Unknown Completed [facility] Pneumococcal Polysaccharide, PPSV23 (PNEUMOVAX) Unknown Completed [facility] SARS-COV-2 COVID-19 PFIZER VACCINE Unknown Completed [facility] SARS-COV-2 COVID-19 PFIZER VACCINE Unknown Completed [facility] Influenza Virus Vaccine (3+ yrs) Unknown Completed [facility] Influenza Virus Vaccine Unknown Completed [facility] Influenza Virus Vaccine Unknown Completed [facility] Influenza Virus Vaccine Unknown Completed [facility] Influenza Virus Vaccine Quad IM, Preserv and ABX Free 6 MO-64 YRS (FLUCELVAX) Unknown Completed [facility] Influenza Virus Vaccine Quad IM, Preserv and ABX Free 6 MO-64 YRS (FLUCELVAX) Unknown Completed [facility] TDAP Unknown Completed [facility] Influenza Virus Vaccine (3+ yrs) Unknown Completed [facility] Influenza Virus Vaccine Unknown Completed [facility] TD, NOS Unknown Completed [facility] Influenza Virus Vaccine Quad .5 mL IM 6+ MO (FLUZONE/FLULAVAL/F LUARIX) Unknown Completed [facility] Pneumococcal Polysaccharide, PPSV23 (PNEUMOVAX) Unknown Completed [facility] SARS-COV-2 COVID-19 PFIZER VACCINE Unknown Completed [facility] SARS-COV-2 COVID-19 PFIZER VACCINE Unknown Completed [facility] Influenza Virus Vaccine (3+ yrs) Unknown Completed [facility] Influenza Virus Vaccine Unknown Completed [facility] Influenza Virus Vaccine Unknown Completed [facility] Influenza Virus Vaccine Unknown Completed [facility] Influenza Virus Vaccine Quad IM, Preserv and ABX Free 6 MO-64 YRS (FLUCELVAX) Unknown Completed [facility] Influenza Virus Vaccine Quad IM, Preserv and ABX Free 6 MO-64 YRS (FLUCELVAX) Unknown Completed [facility] TDAP Unknown Completed [facility] Influenza Virus Vaccine (3+ yrs) Unknown Completed [facility] Influenza Virus Vaccine Unknown Completed [facility] TD, NOS Unknown Completed [facility] Influenza Virus Vaccine Quad .5 mL IM 6+ MO (FLUZONE/FLULAVAL/F LUARIX) Unknown Completed [facility] Pneumococcal Polysaccharide, PPSV23 (PNEUMOVAX) Unknown Completed [facility] SARS-COV-2 COVID-19 PFIZER VACCINE Unknown Completed [facility] SARS-COV-2 COVID-19 PFIZER VACCINE Unknown Completed [facility] Influenza Virus Vaccine (3+ yrs) Unknown Completed [facility] Influenza Virus Vaccine Unknown Completed [facility] Influenza Virus Vaccine Unknown Completed [facility] Influenza Virus Vaccine Unknown Completed [facility] Influenza Virus Vaccine Quad IM, Preserv and ABX Free 6 MO-64 YRS (FLUCELVAX) Unknown Completed [facility] Influenza Virus Vaccine Quad IM, Preserv and ABX Free 6 MO-64 YRS (FLUCELVAX) Unknown Completed [facility] TDAP Unknown Completed [facility] Influenza Virus Vaccine (3+ yrs) Unknown Completed [facility] Influenza Virus Vaccine Unknown Completed [facility] TD, NOS Unknown Completed [facility] Influenza Virus Vaccine Quad .5 mL IM 6+ MO (FLUZONE/FLULAVAL/F LUARIX) Unknown Completed [facility] Pneumococcal Polysaccharide, PPSV23 (PNEUMOVAX) Unknown Completed [facility] SARS-COV-2 COVID-19 PFIZER VACCINE Unknown Completed [facility] SARS-COV-2 COVID-19 PFIZER VACCINE Unknown Completed [facility] Influenza Virus Vaccine (3+ yrs) Unknown Completed [facility] Influenza Virus Vaccine Unknown Completed [facility] Influenza Virus Vaccine Unknown Completed [facility] Influenza Virus Vaccine Unknown Completed [facility] Influenza Virus Vaccine Quad IM, Preserv and ABX Free 6 MO-64 YRS (FLUCELVAX) Unknown Completed [facility] Influenza Virus Vaccine Quad IM, Preserv and ABX Free 6 MO-64 YRS (FLUCELVAX) Unknown Completed [facility] TDAP Unknown Completed [facility] Influenza Virus Vaccine (3+ yrs) Unknown Completed [facility] Influenza Virus Vaccine Unknown Completed [facility] TD, NOS Unknown Completed [facility] Influenza Virus Vaccine Quad .5 mL IM 6+ MO (FLUZONE/FLULAVAL/F LUARIX) Unknown Completed [facility] Pneumococcal Polysaccharide, PPSV23 (PNEUMOVAX) Unknown Completed [facility] SARS-COV-2 COVID-19 PFIZER VACCINE Unknown Completed [facility] SARS-COV-2 COVID-19 PFIZER VACCINE Unknown Completed [facility] Influenza Virus Vaccine (3+ yrs) Unknown Completed [facility] Influenza Virus Vaccine Unknown Completed [facility] Influenza Virus Vaccine Unknown Completed [facility] Influenza Virus Vaccine Unknown Completed [facility] Influenza Virus Vaccine Quad IM, Preserv and ABX Free 6 MO-64 YRS (FLUCELVAX) Unknown Completed [facility] Influenza Virus Vaccine Quad IM, Preserv and ABX Free 6 MO-64 YRS (FLUCELVAX) Unknown Completed [facility] TDAP Unknown Completed [facility] Influenza Virus Vaccine (3+ yrs) Unknown Completed [facility] Influenza Virus Vaccine Unknown Completed [facility] TD, NOS Unknown Completed [facility] Influenza Virus Vaccine Quad .5 mL IM 6+ MO (FLUZONE/FLULAVAL/F LUARIX) Unknown Completed [facility] Pneumococcal Polysaccharide, PPSV23 (PNEUMOVAX) Unknown Completed [facility] SARS-COV-2 COVID-19 PFIZER VACCINE Unknown Completed [facility] SARS-COV-2 COVID-19 PFIZER VACCINE Unknown Completed [facility] Influenza Virus Vaccine (3+ yrs) Unknown Completed [facility] Influenza Virus Vaccine Unknown Completed [facility] Influenza Virus Vaccine Unknown Completed [facility] Influenza Virus Vaccine Unknown Completed [facility] Influenza Virus Vaccine Quad IM, Preserv and ABX Free 6 MO-64 YRS (FLUCELVAX) Unknown Completed [facility] Influenza Virus Vaccine Quad IM, Preserv and ABX Free 6 MO-64 YRS (FLUCELVAX) Unknown Completed [facility] TDAP Unknown Completed [facility] Influenza Virus Vaccine (3+ yrs) Unknown Completed [facility] Influenza Virus Vaccine Unknown Completed [facility] TD, NOS Unknown Completed [facility] Influenza Virus Vaccine Quad .5 mL IM 6+ MO (FLUZONE/FLULAVAL/F LUARIX) Unknown Completed [facility] Pneumococcal Polysaccharide, PPSV23 (PNEUMOVAX) Unknown Completed [facility] SARS-COV-2 COVID-19 PFIZER VACCINE Unknown Completed [facility] SARS-COV-2 COVID-19 PFIZER VACCINE Unknown Completed [facility] Influenza Virus Vaccine (3+ yrs) Unknown Completed [facility] Influenza Virus Vaccine Unknown Completed [facility] Influenza Virus Vaccine Unknown Completed [facility] Influenza Virus Vaccine Unknown Completed [facility] Influenza Virus Vaccine Quad IM, Preserv and ABX Free 6 MO-64 YRS (FLUCELVAX) Unknown Completed [facility] Influenza Virus Vaccine Quad IM, Preserv and ABX Free 6 MO-64 YRS (FLUCELVAX) Unknown Completed [facility] TDAP Unknown Completed [facility] Influenza Virus Vaccine (3+ yrs) Unknown Completed [facility] Influenza Virus Vaccine Unknown Completed [facility] TD, NOS Unknown Completed [facility] Influenza Virus Vaccine Quad .5 mL IM 6+ MO (FLUZONE/FLULAVAL/F LUARIX) Unknown Completed [facility] Pneumococcal Polysaccharide, PPSV23 (PNEUMOVAX) Unknown Completed [facility] SARS-COV-2 COVID-19 PFIZER VACCINE Unknown Completed [facility] SARS-COV-2 COVID-19 PFIZER VACCINE Unknown Completed [facility] Influenza Virus Vaccine (3+ yrs) Unknown Completed [facility] Influenza Virus Vaccine Unknown Completed [facility] Influenza Virus Vaccine Unknown Completed [facility] Influenza Virus Vaccine Unknown Completed [facility] Influenza Virus Vaccine Quad IM, Preserv and ABX Free 6 MO-64 YRS (FLUCELVAX) Unknown Completed [facility] Influenza Virus Vaccine Quad IM, Preserv and ABX Free 6 MO-64 YRS (FLUCELVAX) Unknown Completed [facility] TDAP Unknown Completed [facility] Influenza Virus Vaccine (3+ yrs) Unknown Completed [facility] Influenza Virus Vaccine Unknown Completed [facility] TD, NOS Unknown Completed [facility] Influenza Virus Vaccine Quad .5 mL IM 6+ MO (FLUZONE/FLULAVAL/F LUARIX) Unknown Completed [facility] Pneumococcal Polysaccharide, PPSV23 (PNEUMOVAX) Unknown Completed [facility] SARS-COV-2 COVID-19 PFIZER VACCINE Unknown Completed [facility] SARS-COV-2 COVID-19 PFIZER VACCINE Unknown Completed [facility] Influenza Virus Vaccine (3+ yrs) Unknown Completed [facility] Influenza Virus Vaccine Unknown Completed [facility] Influenza Virus Vaccine Unknown Completed [facility] Influenza Virus Vaccine Unknown Completed [facility] Influenza Virus Vaccine Quad IM, Preserv and ABX Free 6 MO-64 YRS (FLUCELVAX) Unknown Completed [facility] Influenza Virus Vaccine Quad IM, Preserv and ABX Free 6 MO-64 YRS (FLUCELVAX) Unknown Completed [facility] TDAP Unknown Completed [facility] Influenza Virus Vaccine (3+ yrs) Unknown Completed [facility] Influenza Virus Vaccine Unknown Completed [facility] TD, NOS Unknown Completed [facility] Influenza Virus Vaccine Quad .5 mL IM 6+ MO (FLUZONE/FLULAVAL/F LUARIX) Unknown Completed [facility] Pneumococcal Polysaccharide, PPSV23 (PNEUMOVAX) Unknown Completed [facility] SARS-COV-2 COVID-19 PFIZER VACCINE Unknown Completed [facility] SARS-COV-2 COVID-19 PFIZER VACCINE Unknown Completed [facility] Influenza Virus Vaccine (3+ yrs) Unknown Completed [facility] Influenza Virus Vaccine Unknown Completed [facility] Influenza Virus Vaccine Unknown Completed [facility] Influenza Virus Vaccine Unknown Completed [facility] Influenza Virus Vaccine Quad IM, Preserv and ABX Free 6 MO-64 YRS (FLUCELVAX) Unknown Completed [facility] Influenza Virus Vaccine Quad IM, Preserv and ABX Free 6 MO-64 YRS (FLUCELVAX) Unknown Completed [facility] TDAP Unknown Completed [facility] Influenza Virus Vaccine (3+ yrs) Unknown Completed [facility] Influenza Virus Vaccine Unknown Completed [facility] TD, NOS Unknown Completed [facility] Influenza Virus Vaccine Quad .5 mL IM 6+ MO (FLUZONE/FLULAVAL/F LUARIX) Unknown Completed [facility] Pneumococcal Polysaccharide, PPSV23 (PNEUMOVAX) Unknown Completed [facility] SARS-COV-2 COVID-19 PFIZER VACCINE Unknown Completed [facility] SARS-COV-2 COVID-19 PFIZER VACCINE Unknown Completed [facility] Influenza Virus Vaccine (3+ yrs) Unknown Completed [facility] Influenza Virus Vaccine Unknown Completed [facility] Influenza Virus Vaccine Unknown Completed [facility] Influenza Virus Vaccine Unknown Completed [facility] Influenza Virus Vaccine Quad IM, Preserv and ABX Free 6 MO-64 YRS (FLUCELVAX) Unknown Completed [facility] Influenza Virus Vaccine Quad IM, Preserv and ABX Free 6 MO-64 YRS (FLUCELVAX) Unknown Completed [facility] TDAP Unknown Completed [facility] Influenza Virus Vaccine (3+ yrs) Unknown Completed [facility] Influenza Virus Vaccine Unknown Completed [facility] TD, NOS Unknown Completed [facility] Influenza Virus Vaccine Quad .5 mL IM 6+ MO (FLUZONE/FLULAVAL/F LUARIX) Unknown Completed [facility] Pneumococcal Polysaccharide, PPSV23 (PNEUMOVAX) Unknown Completed [facility] SARS-COV-2 COVID-19 PFIZER VACCINE Unknown Completed [facility] SARS-COV-2 COVID-19 PFIZER VACCINE Unknown Completed [facility] Influenza Virus Vaccine (3+ yrs) Unknown Completed [facility] Influenza Virus Vaccine Unknown Completed [facility] Influenza Virus Vaccine Unknown Completed [facility] Influenza Virus Vaccine Unknown Completed [facility] Influenza Virus Vaccine Quad IM, Preserv and ABX Free 6 MO-64 YRS (FLUCELVAX) Unknown Completed [facility] Influenza Virus Vaccine Quad IM, Preserv and ABX Free 6 MO-64 YRS (FLUCELVAX) Unknown Completed [facility] TDAP Unknown Completed [facility] Influenza Virus Vaccine (3+ yrs) Unknown Completed [facility] Influenza Virus Vaccine Unknown Completed [facility] TD, NOS Unknown Com[facility] [facility]ine Quad .5 mL IM 6+ MO (FLUZONE/FLULAVAL/F LUARIX) Unknown Completed [facility] Pneumococcal Polysaccharide, PPSV23 (PNEUMOVAX) Unknown Completed [facility] SARS-COV-2 COVID-19 PFIZER VACCINE Unknown Completed [facility] SARS-COV-2 COVID-19 PFIZER VACCINE Unknown Completed [facility] Influenza Virus Vaccine (3+ yrs) Unknown Completed [facility] Influenza Virus Vaccine Unknown Completed [facility] Influenza Virus Vaccine Unknown Completed [facility] Influenza Virus Vaccine Unknown Completed [facility] Influenza Virus Vaccine Quad IM, Preserv and ABX Free 6 MO-64 YRS (FLUCELVAX) Unknown Completed [facility] Influenza Virus Vaccine Quad IM, Preserv and ABX Free 6 MO-64 YRS (FLUCELVAX) Unknown Completed [facility] TDAP Unknown Completed [facility] Influenza Virus Vaccine (3+ yrs) Unknown Completed [facility] Influenza Virus Vaccine Unknown Completed [facility] TD, NOS Unknown Completed [facility] Influenza Virus Vaccine Quad .5 mL IM 6+ MO (FLUZONE/FLULAVAL/F LUARIX) Unknown Completed [facility] Pneumococcal Polysaccharide, PPSV23 (PNEUMOVAX) Unknown Completed [facility] SARS-COV-2 COVID-19 PFIZER VACCINE Unknown Completed [facility] SARS-COV-2 COVID-19 PFIZER VACCINE Unknown Completed [facility] Influenza Virus Vaccine (3+ yrs) Unknown Completed [facility] Influenza Virus Vaccine Unknown Completed [facility] Influenza Virus Vaccine Unknown Completed [facility] Influenza Virus Vaccine Unknown Completed [facility] Influenza Virus Vaccine Quad IM, Preserv and ABX Free 6 MO-64 YRS (FLUCELVAX) Unknown Completed [facility] Influenza Virus Vaccine Quad IM, Preserv and ABX Free 6 MO-64 YRS (FLUCELVAX) Unknown Completed [facility] TDAP Unknown Completed [facility] Influenza Virus Vaccine (3+ yrs) Unknown Completed [facility] Influenza Virus Vaccine Unknown Completed [facility] TD, NOS Unknown Completed [facility] Influenza Virus Vaccine Quad .5 mL IM 6+ MO (FLUZONE/FLULAVAL/F LUARIX) Unknown Completed [facility] Pneumococcal Polysaccharide, PPSV23 (PNEUMOVAX) Unknown Completed [facility] SARS-COV-2 COVID-19 PFIZER VACCINE Unknown Completed [facility] SARS-COV-2 COVID-19 PFIZER VACCINE Unknown Completed [facility] Influenza Virus Vaccine (3+ yrs) Unknown Completed [facility] Influenza Virus Vaccine Unknown Completed [facility] Influenza Virus Vaccine Unknown Completed [facility] Influenza Virus Vaccine Unknown Completed [facility] Influenza Virus Vaccine Quad IM, Preserv and ABX Free 6 MO-64 YRS (FLUCELVAX) Unknown Completed [facility] Influenza Virus Vaccine Quad IM, Preserv and ABX Free 6 MO-64 YRS (FLUCELVAX) Unknown Completed [facility] TDAP Unknown Completed [facility] Influenza Virus Vaccine (3+ yrs) Unknown Completed [facility] Influenza Virus Vaccine Unknown Completed [facility] TD, NOS Unknown Completed [facility] Influenza Virus Vaccine Quad .5 mL IM 6+ MO (FLUZONE/FLULAVAL/F LUARIX) Unknown Completed [facility] Pneumococcal Polysaccharide, PPSV23 (PNEUMOVAX) Unknown Completed [facility] SARS-COV-2 COVID-19 PFIZER VACCINE Unknown Completed [facility] SARS-COV-2 COVID-19 PFIZER VACCINE Unknown Completed [facility] Influenza Virus Vaccine (3+ yrs) Unknown Completed [facility] Influenza Virus Vaccine Unknown Completed [facility] Influenza Virus Vaccine Unknown Completed [facility] Influenza Virus Vaccine Unknown Completed [facility] Influenza Virus Vaccine Quad IM, Preserv and ABX Free 6 MO-64 YRS (FLUCELVAX) Unknown Completed [facility] Influenza Virus Vaccine Quad IM, Preserv and ABX Free 6 MO-64 YRS (FLUCELVAX) Unknown Completed [facility] TDAP Unknown Completed [facility] Influenza Virus Vaccine (3+ yrs) Unknown Completed [facility] Influenza Virus Vaccine Unknown Completed [facility] TD, NOS Unknown Completed [facility] Influenza Virus Vaccine Quad .5 mL IM 6+ MO (FLUZONE/FLULAVAL/F LUARIX) Unknown Completed [facility] Pneumococcal Polysaccharide, PPSV23 (PNEUMOVAX) Unknown Completed [facility] SARS-COV-2 COVID-19 PFIZER VACCINE Unknown Completed [facility] SARS-COV-2 COVID-19 PFIZER VACCINE Unknown Completed [facility] Influenza Virus Vaccine (3+ yrs) Unknown Completed [facility] Influenza Virus Vaccine Unknown Completed [facility] Influenza Virus Vaccine Unknown Completed [facility] Influenza Virus Vaccine Unknown Completed [facility] Influenza Virus Vaccine Quad IM, Preserv and ABX Free 6 MO-64 YRS (FLUCELVAX) Unknown Completed [facility] Influenza Virus Vaccine Quad IM, Preserv and ABX Free 6 MO-64 YRS (FLUCELVAX) Unknown Completed [facility] TDAP Unknown Completed [facility] Influenza Virus Vaccine (3+ yrs) Unknown Completed [facility] Influenza Virus Vaccine Unknown Completed [facility] TD, NOS Unknown Completed [facility] Influenza Virus Vaccine Quad .5 mL IM 6+ MO (FLUZONE/FLULAVAL/F LUARIX) Unknown Completed [facility] Pneumococcal Polysaccharide, PPSV23 (PNEUMOVAX) Unknown Completed [facility] SARS-COV-2 COVID-19 PFIZER VACCINE Unknown Completed [facility] SARS-COV-2 COVID-19 PFIZER VACCINE Unknown Completed [facility] Influenza Virus Vaccine (3+ yrs) Unknown Completed [facility] Influenza Virus Vaccine Unknown Completed [facility] Influenza Virus Vaccine Unknown Completed [facility] Influenza Virus Vaccine Unknown Completed [facility] Influenza Virus Vaccine Quad IM, Preserv and ABX Free 6 MO-64 YRS (FLUCELVAX) Unknown Completed [facility] Influenza Virus Vaccine Quad IM, Preserv and ABX Free 6 MO-64 YRS (FLUCELVAX) Unknown Completed [facility] TDAP Unknown Completed [facility] Influenza Virus Vaccine (3+ yrs) Unknown Completed [facility] Influenza Virus Vaccine Unknown Completed [facility] TD, NOS Unknown Completed [facility] Influenza Virus Vaccine Quad .5 mL IM 6+ MO (FLUZONE/FLULAVAL/F LUARIX) Unknown Completed [facility] Pneumococcal Polysaccharide, PPSV23 (PNEUMOVAX) Unknown Completed [facility] SARS-COV-2 COVID-19 PFIZER VACCINE Unknown Completed [facility] SARS-COV-2 COVID-19 PFIZER VACCINE Unknown Completed [facility] Influenza Virus Vaccine (3+ yrs) Unknown Completed [facility] Influenza Virus Vaccine Unknown Completed [facility] Influenza Virus Vaccine Unknown Completed [facility] Influenza Virus Vaccine Unknown Completed [facility] Influenza Virus Vaccine Quad IM, Preserv and ABX Free 6 MO-64 YRS (FLUCELVAX) Unknown Completed [facility] Influenza Virus Vaccine Quad IM, Preserv and ABX Free 6 MO-64 YRS (FLUCELVAX) Unknown Completed [facility] TDAP Unknown Completed [facility] Influenza Virus Vaccine (3+ yrs) Unknown Completed [facility] Influenza Virus Vaccine Unknown Completed [facility] TD, NOS Unknown Completed [facility] Influenza Virus Vaccine Quad .5 mL IM 6+ MO (FLUZONE/FLULAVAL/F LUARIX) Unknown Completed [facility] Pneumococcal Polysaccharide, PPSV23 (PNEUMOVAX) Unknown Completed [facility] SARS-COV-2 COVID-19 PFIZER VACCINE Unknown Completed [facility] SARS-COV-2 COVID-19 PFIZER VACCINE Unknown Completed [facility] Influenza Virus Vaccine (3+ yrs) Unknown Completed [facility] Influenza Virus Vaccine Unknown Completed [facility] Influenza Virus Vaccine Unknown Completed [facility] Influenza Virus Vaccine Unknown Completed [facility] Influenza Virus Vaccine Quad IM, Preserv and ABX Free 6 MO-64 YRS (FLUCELVAX) Unknown Completed [facility] Influenza Virus Vaccine Quad IM, Preserv and ABX Free 6 MO-64 YRS (FLUCELVAX) Unknown Completed [facility] TDAP Unknown Completed [facility] Influenza Virus Vaccine (3+ yrs) Unknown Completed [facility] Influenza Virus Vaccine Unknown Completed [facility] TD, NOS Unknown Completed [facility] Influenza Virus Vaccine Quad .5 mL IM 6+ MO (FLUZONE/FLULAVAL/F LUARIX) Unknown Completed [facility] Pneumococcal Polysaccharide, PPSV23 (PNEUMOVAX) Unknown Completed [facility] SARS-COV-2 COVID-19 PFIZER VACCINE Unknown Completed [facility] SARS-COV-2 COVID-19 PFIZER VACCINE Unknown Completed [facility] Influenza Virus Vaccine (3+ yrs) Unknown Completed [facility] Influenza Virus Vaccine Unknown Completed [facility] Influenza Virus Vaccine Unknown Completed [facility] Influenza Virus Vaccine Unknown Completed [facility] Influenza Virus Vaccine Quad IM, Preserv and ABX Free 6 MO-64 YRS (FLUCELVAX) Unknown Completed [facility] Influenza Virus Vaccine Quad IM, Preserv and ABX Free 6 MO-64 YRS (FLUCELVAX) Unknown Completed [facility] TDAP Unknown Completed [facility] Influenza Virus Vaccine (3+ yrs) Unknown Completed [facility] Influenza Virus Vaccine Unknown Completed [facility] TD, NOS Unknown Completed [facility] Influenza Virus Vaccine Quad .5 mL IM 6+ MO (FLUZONE/FLULAVAL/F LUARIX) Unknown Completed [facility] Pneumococcal Polysaccharide, PPSV23 (PNEUMOVAX) Unknown Completed [facility] SARS-COV-2 COVID-19 PFIZER VACCINE Unknown Completed [facility] SARS-COV-2 COVID-19 PFIZER VACCINE Unknown Completed [facility] Influenza Virus Vaccine (3+ yrs) Unknown Completed [facility] Influenza Virus Vaccine Unknown Completed [facility] Influenza Virus Vaccine Unknown Completed [facility] Influenza Virus Vaccine Unknown Completed [facility] Influenza Virus Vaccine Quad IM, Preserv and ABX Free 6 MO-64 YRS (FLUCELVAX) Unknown Completed [facility] Influenza Virus Vaccine Quad IM, Preserv and ABX Free 6 MO-64 YRS (FLUCELVAX) Unknown Completed [facility] TDAP Unknown Completed [facility] Influenza Virus Vaccine (3+ yrs) Unknown Completed [facility] Influenza Virus Vaccine Unknown Completed [facility] TD, NOS Unknown Completed [facility] Influenza Virus Vaccine Quad .5 mL IM 6+ MO (FLUZONE/FLULAVAL/F LUARIX) Unknown Completed [facility] Pneumococcal Polysaccharide, PPSV23 (PNEUMOVAX) Unknown Completed [facility] SARS-COV-2 COVID-19 PFIZER VACCINE Unknown Completed [facility] SARS-COV-2 COVID-19 PFIZER VACCINE Unknown Completed [facility] Influenza Virus Vaccine (3+ yrs) Unknown Completed [facility] Influenza Virus Vaccine Unknown Completed [facility] Influenza Virus Vaccine Unknown Completed [facility] Influenza Virus Vaccine Unknown Completed [facility] Influenza Virus Vaccine Quad IM, Preserv and ABX Free 6 MO-64 YRS (FLUCELVAX) Unknown Completed [facility] Influenza Virus Vaccine Quad IM, Preserv and ABX Free 6 MO-64 YRS (FLUCELVAX) Unknown Completed [facility] TDAP Unknown Completed [facility] Influenza Virus Vaccine (3+ yrs) Unknown Completed [facility] Influenza Virus Vaccine Unknown Completed [facility] TD, NOS Unknown Completed [facility] Influenza Virus Vaccine Quad .5 mL IM 6+ MO (FLUZONE/FLULAVAL/F LUARIX) Unknown Completed [facility] Pneumococcal Polysaccharide, PPSV23 (PNEUMOVAX) Unknown Completed [facility] SARS-COV-2 COVID-19 PFIZER VACCINE Unknown Completed [facility] SARS-COV-2 COVID-19 PFIZER VACCINE Unknown Completed [facility] Influenza Virus Vaccine (3+ yrs) Unknown Completed [facility] Influenza Virus Vaccine Unknown Completed [facility] Influenza Virus Vaccine Unknown Completed [facility] Influenza Virus Vaccine Unknown Completed [facility] Influenza Virus Vaccine Quad IM, Preserv and ABX Free 6 MO-64 YRS (FLUCELVAX) Unknown Completed [facility] Influenza Virus Vaccine Quad IM, Preserv and ABX Free 6 MO-64 YRS (FLUCELVAX) Unknown Completed [facility] TDAP Unknown Completed [facility] Influenza Virus Vaccine (3+ yrs) Unknown Completed [facility] Influenza Virus Vaccine Unknown Completed [facility] TD, NOS Unknown Completed [facility] Influenza Virus Vaccine Quad .5 mL IM 6+ MO (FLUZONE/FLULAVAL/F LUARIX) Unknown Completed [facility] Pneumococcal Polysaccharide, PPSV23 (PNEUMOVAX) Unknown Completed [facility] SARS-COV-2 COVID-19 PFIZER VACCINE Unknown Completed [facility] SARS-COV-2 COVID-19 PFIZER VACCINE Unknown Completed [facility] Influenza Virus Vaccine (3+ yrs) Unknown Completed [facility] Influenza Virus Vaccine Unknown Completed [facility] Influenza Virus Vaccine Unknown Completed [facility] Influenza Virus Vaccine Unknown Completed [facility] Influenza Virus Vaccine Quad IM, Preserv and ABX Free 6 MO-64 YRS (FLUCELVAX) Unknown Completed [facility] Influenza Virus Vaccine Quad IM, Preserv and ABX Free 6 MO-64 YRS (FLUCELVAX) Unknown Completed [facility] TDAP Unknown Completed [facility] Influenza Virus Vaccine (3+ yrs) Unknown Completed [facility] Influenza Virus Vaccine Unknown Completed [facility] TD, NOS Unknown Completed [facility] Influenza Virus Vaccine Quad .5 mL IM 6+ MO (FLUZONE/FLULAVAL/F LUARIX) Unknown Completed [facility] Pneumococcal Polysaccharide, PPSV23 (PNEUMOVAX) Unknown Completed [facility] SARS-COV-2 COVID-19 PFIZER VACCINE Unknown Completed [facility] SARS-COV-2 COVID-19 PFIZER VACCINE Unknown Completed [facility] Influenza Virus Vaccine (3+ yrs) Unknown Completed [facility] Influenza Virus Vaccine Unknown Completed [facility] Influenza Virus Vaccine Unknown Completed [facility] Influenza Virus Vaccine Unknown Completed [facility] Influenza Virus Vaccine Quad IM, Preserv and ABX Free 6 MO-64 YRS (FLUCELVAX) Unknown Completed [facility] Influenza Virus Vaccine Quad IM, Preserv and ABX Free 6 MO-64 YRS (FLUCELVAX) Unknown Completed [facility] TDAP Unknown Completed [facility] Influenza Virus Vaccine (3+ yrs) Unknown Completed [facility] Influenza Virus Vaccine Unknown Completed [facility] TD, NOS Unknown Completed [facility] Influenza Virus Vaccine Quad .5 mL IM 6+ MO (FLUZONE/FLULAVAL/F LUARIX) Unknown Completed [facility] Pneumococcal Polysaccharide, PPSV23 (PNEUMOVAX) Unknown Completed [facility] SARS-COV-2 COVID-19 PFIZER VACCINE Unknown Completed [facility] SARS-COV-2 COVID-19 PFIZER VACCINE Unknown Completed [facility] Influenza Virus Vaccine (3+ yrs) Unknown Completed [facility] Influenza Virus Vaccine Unknown Completed [facility] Influenza Virus Vaccine Unknown Completed [facility] Influenza Virus Vaccine Unknown Completed [facility] Influenza Virus Vaccine Quad IM, Preserv and ABX Free 6 MO-64 YRS (FLUCELVAX) Unknown Completed [facility] Influenza Virus Vaccine Quad IM, Preserv and ABX Free 6 MO-64 YRS (FLUCELVAX) Unknown Completed [facility] TDAP Unknown Completed [facility] Influenza Virus Vaccine (3+ yrs) Unknown Completed [facility] Influenza Virus Vaccine Unknown Completed [facility] TD, NOS Unknown Completed [facility] Influenza Virus Vaccine Quad .5 mL IM 6+ MO (FLUZONE/FLULAVAL/F LUARIX) Unknown Completed [facility] Pneumococcal Polysaccharide, PPSV23 (PNEUMOVAX) Unknown Completed [facility] SARS-COV-2 COVID-19 PFIZER VACCINE Unknown Completed [facility] SARS-COV-2 COVID-19 PFIZER VACCINE Unknown Completed [facility] Influenza Virus Vaccine (3+ yrs) Unknown Completed [facility] Influenza Virus Vaccine Unknown Completed [facility] Influenza Virus Vaccine Unknown Completed [facility] Influenza Virus Vaccine Unknown Completed [facility] Influenza Virus Vaccine Quad IM, Preserv and ABX Free 6 MO-64 YRS (FLUCELVAX) Unknown Completed [facility] Influenza Virus Vaccine Quad IM, Preserv and ABX Free 6 MO-64 YRS (FLUCELVAX) Unknown Completed [facility] TDAP Unknown Completed [facility] Influenza Virus Vaccine (3+ yrs) Unknown Completed [facility] Influenza Virus Vaccine Unknown Completed [facility] TD, NOS Unknown Completed [facility] Influenza Virus Vaccine Quad .5 mL IM 6+ MO (FLUZONE/FLULAVAL/F LUARIX) Unknown Completed [facility] Pneumococcal Polysaccharide, PPSV23 (PNEUMOVAX) Unknown Completed [facility] SARS-COV-2 COVID-19 PFIZER VACCINE Unknown Completed [facility] SARS-COV-2 COVID-19 PFIZER VACCINE Unknown Completed [facility] Influenza Virus Vaccine (3+ yrs) Unknown Completed [facility] Influenza Virus Vaccine Unknown Completed [facility] Influenza Virus Vaccine Unknown Completed [facility] Influenza Virus Vaccine Unknown Completed [facility] Influenza Virus Vaccine Quad IM, Preserv and ABX Free 6 MO-64 YRS (FLUCELVAX) Unknown Completed [facility] Influenza Virus Vaccine Quad IM, Preserv and ABX Free 6 MO-64 YRS (FLUCELVAX) Unknown Completed [facility] TDAP Unknown Completed [facility] Influenza Virus Vaccine (3+ yrs) Unknown Completed [facility] Influenza Virus Vaccine Unknown Completed [facility] TD, NOS Unknown Completed [facility] Influenza Virus Vaccine Quad .5 mL IM 6+ MO (FLUZONE/FLULAVAL/F LUARIX) Unknown Completed [facility] Pneumococcal Polysaccharide, PPSV23 (PNEUMOVAX) Unknown Completed [facility] SARS-COV-2 COVID-19 PFIZER VACCINE Unknown Completed [facility] SARS-COV-2 COVID-19 PFIZER VACCINE Unknown Completed [facility] Influenza Virus Vaccine (3+ yrs) Unknown Completed [facility] Influenza Virus Vaccine Unknown Completed [facility] Influenza Virus Vaccine Unknown Completed [facility] Influenza Virus Vaccine Unknown Completed [facility] Influenza Virus Vaccine Quad IM, Preserv and ABX Free 6 MO-64 YRS (FLUCELVAX) Unknown Completed [facility] Influenza Virus Vaccine Quad IM, Preserv and ABX Free 6 MO-64 YRS (FLUCELVAX) Unknown Completed [facility] Vital Signs Vital Name Observation Time Observation Value Comments S ource Systolic blood pressure 2024-02-22 20:24:00 127 mm[Hg] [facility] Diastolic blood pressure 2024-02-22 20:24:00 87 mm[Hg] [facility] Heart rate 2024-02-22 20:24:00 93 /min [facility] Body temperature 2024-02-22 20:24:00 36.78 [facility] Respiratory rate 2024-02-22 20:24:00 18 /min [facility] Body height 2024-02-22 20:24:00 175.3 cm [facility] Body weight 2024-02-22 20:24:00 124.24 kg [facility] BMI 2024-02-22 20:24:00 40.45 kg/m2 [facility] Oxygen saturation in Arterial blood by Pulse oximetry 2024-02-22 20:24:00 97 /min [facility] Respiratory rate 2024-02-17 15:00:00 16 /min [facility] Body height 2024-02-17 15:00:00 175.3 cm [facility] Body weight 2024-02-17 15:00:00 121.564 kg [facility] BMI 2024-02-17 15:00:00 39.58 kg/m2 [facility] Systolic blood pressure 2024-01-31 19:32:00 125 mm[Hg] [facility] Diastolic blood pressure 2024-01-31 19:32:00 85 mm[Hg] [facility] Heart rate 2024-01-31 19:32:00 74 /min [facility] Body temperature 2024-01-31 19:32:00 37 [facility] [facility] Respiratory rate 2024-01-31 19:32:00 18 /min [facility] Body height 2024-01-31 19:32:00 175.3 cm [facility] Body weight 2024-01-31 19:32:00 121.972 kg [facility] BMI 2024-01-31 19:32:00 39.71 kg/m2 [facility] Oxygen saturation in Arterial blood by Pulse oximetry 2024-01-31 19:32:00 98 /min [facility] Systolic blood pressure 2024-01-26 19:55:00 123 mm[Hg] [facility] Diastolic blood pressure 2024-01-26 19:55:00 84 mm[Hg] [facility] Heart rate 2024-01-26 19:55:00 94 /min [facility] Respiratory rate 2024-01-26 19:55:00 16 /min [facility] Body height 2024-01-26 19:55:00 175.3 cm [facility] Body weight 2024-01-26 19:55:00 122.471 kg [facility] BMI 2024-01-26 19:55:00 39.87 kg/m2 [facility] Systolic blood pressure 2024-01-19 14:53:00 125 mm[Hg] [facility] Diastolic blood pressure 2024-01-19 14:53:00 85 mm[Hg] [facility] Heart rate 2024-01-19 14:53:00 73 /min [facility] Body temperature 2024-01-19 14:53:00 36.56 Dariana [facility] Respiratory rate 2024-01-19 14:53:00 17 /min [facility] Body weight 2024-01-19 14:53:00 123.378 kg [facility] BMI 2024-01-19 14:53:00 40.17 kg/m2 [facility] Oxygen saturation in Arterial blood by Pulse oximetry 2024-01-19 14:53:00 96 /min [facility] Systolic blood pressure 2024-01-06 12:15:00 124 mm[Hg] [facility] Diastolic blood pressure 2024-01-06 12:15:00 79 mm[Hg] [facility] Heart rate 2024-01-06 12:15:00 69 /[facility] Body height 2024-01-06 12:15:00 175.3 cm [facility] Body weight 2024-01-06 12:15:00 124.694 kg [facility] BMI 2024-01-06 12:15:00 40.60 kg/m2 [facility] Oxygen saturation in Arterial blood by Pulse oximetry 2024-01-06 12:15:00 98 /min [facility] Systolic blood pressure 2023-12-17 15:26:00 121 mm[Hg] [facility] Diastolic blood pressure 2023-12-17 15:26:00 78 mm[Hg] [facility] Heart rate 2023-12-17 15:26:00 80 /min [facility] Body temperature 2023-12-17 15:26:00 36.78 Dariana [facility] Respiratory rate 2023-12-17 15:26:00 18 /min [facility] Body height 2023-12-17 15:26:00 175.3 cm [facility] Body weight 2023-12-17 15:26:00 127.551 kg [facility] BMI 2023-12-17 15:26:00 41.53 kg/m2 [facility] Oxygen saturation in Arterial blood by Pulse oximetry 2023-12-17 15:26:00 96 /min [facility] Systolic blood pressure 2023-11-16 18:28:00 129 mm[Hg] [facility] Diastolic blood pressure 2023-11-16 18:28:00 84 mm[Hg] [facility] Heart rate 2023-11-16 18:28:00 72 /min [facility] Body temperature 2023-11-16 18:28:00 36.72 Dariana [facility] Respiratory rate 2023-11-16 18:28:00 18 /min [facility] Body height 2023-11-16 18:28:00 175.3 cm [facility] Body weight 2023-11-16 18:28:00 122.018 kg [facility] BMI 2023-11-16 18:28:00 39.72 kg/m2 [facility] Oxygen saturation in Arterial blood by Pulse oximetry 2023-11-16 18:28:00 97 /min [facility] Systolic blood pressure 2023-11-09 18:45:00 136 mm[Hg] [facility] Diastolic blood pressure 2023-11-09 18:45:00 79 mm[Hg] [facility] Heart rate 2023-11-09 18:44:00 82 /min [facility] Body temperature 2023-11-09 18:44:00 36.33 Dariana [facility] Respiratory rate 2023-11-09 18:44:00 14 /min [facility] Body weight 2023-11-09 18:44:00 122.471 kg [facility] BMI 2023-11-09 18:44:00 39.87 kg/m2 [facility] Oxygen saturation in Arterial blood by Pulse oximetry 2023-11-09 18:44:00 97 /min [facility] Systolic blood pressure 2023-05-24 14:05:00 107 mm[Hg] [facility] Diastolic blood pressure 2023-05-24 14:05:00 72 mm[Hg] [facility] Heart rate 2023-05-24 14:05:00 68 /min [facility] Body height 2023-05-24 14:05:00 175.3 cm [facility] Body weight 2023-05-24 14:05:00 120.657 kg [facility] BMI 2023-05-24 14:05:00 39.28 kg/m2 [facility] Oxygen saturation in Arterial blood by Pulse oximetry 2023-05-24 14:05:00 97 /min [facility] Systolic blood pressure 2023-05-10 18:16:00 129 mm[Hg] [facility] Diastolic blood pressure 2023-05-10 18:16:00 86 mm[Hg] [facility] Heart rate 2023-05-10 18:16:00 78 /min [facility] Respiratory rate 2023-05-10 18:16:00 18 /min [facility] Body height 2023-05-10 18:16:00 175.3 cm [facility] Body weight 2023-05-10 18:16:00 120.294 kg [facility] BMI 2023-05-10 18:16:00 39.16 kg/m2 [facility] Oxygen saturation in Arterial blood by Pulse oximetry 2023-05-10 18:16:00 98 /min [facility] Systolic blood pressure 2023-03-30 16:40:00 116 mm[Hg] [facility] Diastolic blood pressure 2023-03-30 16:40:00 76 mm[Hg] [facility] Heart rate 2023-03-30 16:40:00 63 /min [facility] Body height 2023-03-30 16:40:00 175.3 cm [facility] Body weight 2023-03-30 16:40:00 118.842 kg [facility] BMI 2023-03-30 16:40:00 38.69 kg/m2 [facility] Oxygen saturation in Arterial blood by Pulse oximetry 2023-03-30 16:40:00 99 /min [facility] Systolic blood pressure 2023-03-26 18:33:00 113 mm[Hg] [facility] Diastolic blood pressure 2023-03-26 18:33:00 77 mm[Hg] [facility] Heart rate 2023-03-26 18:33:00 74 /min [facility] Body height 2023-03-26 18:33:00 175.3 cm [facility] Body weight 2023-03-26 18:33:00 118.842 kg Univ [facility] BMI 2023-03-26 18:33:00 38.69 kg/m2 [facility] Oxygen saturation in Arterial blood by Pulse oximetry 2023-03-26 18:33:00 96 /min [facility] Systolic blood pressure 2023-03-24 15:26:00 130 mm[Hg] [facility] Diastolic blood pressure 2023-03-24 15:26:00 84 mm[Hg] [facility] Heart rate 2023-03-24 15:26:00 67 /min [facility] Respiratory rate 2023-03-24 15:26:00 18 /min [facility] Body height 2023-03-24 15:26:00 175.3 cm Univ [facility] Body weight 2023-03-24 15:26:00 118.752 kg Univ [facility] BMI 2023-03-24 15:26:00 38.66 kg/m2 [facility] in Arterial blood by Pulse oximetry 2023-03-24 15:26:00 97 /min [facility] Systolic blood pressure 2023-03-19 13:56:41 115 mm[Hg] [facility] Diastolic blood pressure 2023-03-19 13:56:41 74 mm[Hg] [facility] Heart rate 2023-03-19 12:58:00 64 /min Unive [facility] Body temperature 2023-03-19 12:58:00 36.39 Dariana [facility] Respiratory rate 2023-03-19 12:58:00 20 /min [facility] Oxygen saturation in Arterial blood by Pulse oximetry 2023-03-19 12:58:00 100 /min [facility] Systolic blood pressure 2023-02-22 01:51:00 143 mm[Hg] [facility] Diastolic blood pressure 2023-02-22 01:51:00 76 mm[Hg] [facility] Heart rate 2023-02-22 01:49:00 80 /min [facility] Body temperature 2023-02-22 01:49:00 37.22 Dariana [facility] Respiratory rate 2023-02-22 01:49:00 12 /min [facility] Body height 2023-02-22 01:49:00 175.3 cm [facility] Body weight 2023-02-22 01:49:00 122.018 kg [facility] BMI 2023-02-22 01:49:00 39.72 kg/m2 [facility] Oxygen saturation in Arterial blood by Pulse oximetry 2023-02-22 01:49:00 96 /min [facility] Systolic blood pressure 2023-02-16 18:57:00 128 mm[Hg] [facility] Diastolic blood pressure 2023-02-16 18:57:00 80 mm[Hg] [facility] Heart rate 2023-02-16 18:57:00 87 /min [facility] Respiratory rate 2023-02-16 18:57:00 18 /min [facility] Body height 2023-02-16 18:57:00 175.3 cm Univ [facility] Body weight 2023-02-16 18:57:00 121.882 kg [facility] BMI 2023-02-16 18:57:00 39.68 kg/m2 [facility] Oxygen saturation in Arterial blood by Pulse oximetry 2023-02-16 18:57:00 95 /min [facility] Systolic blood pressure 2022-12-15 18:24:00 124 mm[Hg] [facility] Diastolic blood pressure 2022-12-15 18:24:00 79 mm[Hg] [facility] Heart rate 2022-12-15 18:24:00 74 /min [facility] Body temperature 2022-12-15 18:24:00 36.72 Dariana [facility] Body height 2022-12-15 18:24:00 175.3 cm [facility] Body weight 2022-12-15 18:24:00 121.564 kg [facility] BMI 2022-12-15 18:24:00 39.58 kg/m2 [facility] Oxygen saturation in Arterial blood by Pulse oximetry 2022-12-15 18:24:00 97 /min [facility] Systolic blood pressure 2022-12-09 14:52:00 125 mm[Hg] [facility] Diastolic blood pressure 2022-12-09 14:52:00 80 mm[Hg] [facility] Heart rate 2022-12-09 14:52:00 63 /min [facility] Respiratory rate 2022-12-09 14:52:00 12 /min [facility] Body height 2022-12-09 14:52:00 175.3 cm [facility] Body weight 2022-12-09 14:52:00 121.564 kg [facility] BMI 2022-12-09 14:52:00 39.58 kg/m2 [facility] Oxygen saturation in Arterial blood by Pulse oximetry 2022-12-09 14:52:00 97 /min [facility] Systolic blood pressure 2022-11-13 19:39:00 129 mm[Hg] [facility] Diastolic blood pressure 2022-11-13 19:39:00 87 mm[Hg] [facility] Heart rate 2022-11-13 19:39:00 79 /min [facility] Body height 2022-11-13 19:33:00 175.3 cm [facility] Body weight 2022-11-13 19:33:00 121.564 kg [facility] BMI 2022-11-13 19:33:00 39.58 kg/m2 [facility] Oxygen saturation in Arterial blood by Pulse oximetry 2022-11-13 19:33:00 95 /min [facility] Systolic blood pressure 2022-11-04 18:21:00 122 mm[Hg] [facility] Diastolic blood pressure 2022-11-04 18:21:00 85 mm[Hg] [facility] Heart rate 2022-11-04 18:21:00 67 /min [facility] Body temperature 2022-11-04 18:21:00 36.94 Dariana [facility] Respiratory rate 2022-11-04 18:21:00 17 /min [facility] Body height 2022-11-04 18:21:00 175.3 cm [facility] Body weight 2022-11-04 18:21:00 121.246 kg [facility] BMI 2022-11-04 18:21:00 39.47 kg/m2 [facility] Oxygen saturation in Arterial blood by Pulse oximetry 2022-11-04 18:21:00 96 /min [facility] Systolic blood pressure 2022-10-16 19:26:00 116 mm[Hg] [facility] Diastolic blood pressure 2022-10-16 19:26:00 78 mm[Hg] [facility] Heart rate 2022-10-16 19:26:00 85 /min [facility] Body temperature 2022-10-16 19:26:00 36.61 Dariana [facility] Body height 2022-10-16 19:26:00 175.3 cm [facility] Body weight 2022-10-16 19:26:00 122.925 kg [facility] BMI 2022-10-16 19:26:00 40.02 kg/m2 [facility] Oxygen saturation in Arterial blood by Pulse oximetry 2022-10-16 19:26:00 96 /min [facility] Systolic blood pressure 2022-09-09 20:33:00 115 mm[Hg] [facility] Diastolic blood pressure 2022-09-09 20:33:00 61 mm[Hg] [facility] Heart rate 2022-09-09 20:33:00 90 /min [facility] Body weight 2022-09-09 20:33:00 123.469 kg [facility] BMI 2022-09-09 20:33:00 40.20 kg/m2 [facility] Oxygen saturation in Arterial blood by Pulse oximetry 2022-09-09 20:33:00 97 /min [facility] Systolic blood pressure 2022-09-09 16:13:00 112 mm[Hg] [facility] Diastolic blood pressure 2022-09-09 16:13:00 71 mm[Hg] [facility] Heart rate 2022-09-09 16:13:00 76 /min [facility] Respiratory rate 2022-09-09 16:13:00 12 /min [facility] Body height 2022-09-09 16:13:00 175.3 cm [facility] Body weight 2022-09-09 16:13:00 125.193 kg [facility] BMI 2022-09-09 16:13:00 40.76 kg/m2 [facility] Oxygen saturation in Arterial blood by Pulse oximetry 2022-09-09 16:13:00 98 /min [facility] Systolic blood pressure 2022-08-17 17:21:00 124 mm[Hg] [facility] Diastolic blood pressure 2022-08-17 17:21:00 82 mm[Hg] [facility] Heart rate 2022-08-17 17:21:00 76 /min [facility] Body temperature 2022-08-17 17:21:00 36.67 Dariana [facility] Body height 2022-08-17 17:21:00 175.3 cm [facility] Body weight 2022-08-17 17:21:00 125.193 kg [facility] BMI 2022-08-17 17:21:00 40.76 kg/m2 [facility] Oxygen saturation in Arterial blood by Pulse oximetry 2022-08-17 17:21:00 96 /min [facility] Systolic blood pressure 2022-08-14 16:00:00 136 mm[Hg] [facility] Diastolic blood pressure 2022-08-14 16:00:00 84 mm[Hg] [facility] Heart rate 2022-08-14 16:00:00 72 /min [facility] Respiratory rate 2022-08-14 16:00:00 16 /min [facility] Body temperature 2022-08-14 14:17:00 36.72 Dariana [facility] Body height 2022-08-14 14:17:00 175.3 cm [facility] Body weight 2022-08-14 14:17:00 122.471 kg [facility] BMI 2022-08-14 14:17:00 39.87 kg/m2 [facility] Oxygen saturation in Arterial blood by Pulse oximetry 2022-08-14 14:17:00 99 /min [facility] Systolic blood pressure 2022-08-12 21:06:00 121 mm[Hg] [facility] Diastolic blood pressure 2022-08-12 21:06:00 75 mm[Hg] [facility] Heart rate 2022-08-12 21:06:00 74 /min [facility] Respiratory rate 2022-08-12 21:06:00 12 /min [facility] Body height 2022-08-12 21:06:00 175.3 cm [facility] Body weight 2022-08-12 21:06:00 123.378 kg [facility] BMI 2022-08-12 21:06:00 40.17 kg/m2 [facility] Oxygen saturation in Arterial blood by Pulse oximetry 2022-08-12 21:06:00 98 /min [facility] Systolic blood pressure 2022-07-15 21:37:00 132 mm[Hg] [facility] Diastolic blood pressure 2022-07-15 21:37:00 85 mm[Hg] [facility] Heart rate 2022-07-15 21:32:00 90 /min [facility] Body height 2022-07-15 21:32:00 175.3 cm [facility] Body weight 2022-07-15 21:32:00 123.152 kg [facility] BMI 2022-07-15 21:32:00 40.09 kg/m2 [facility] Oxygen saturation in Arterial blood by Pulse oximetry 2022-07-15 21:32:00 96 /min [facility] Body height 2022-07-06 16:04:00 175.3 cm [facility] Body weight 2022-07-06 16:04:00 122.471 kg [facility] BMI 2022-07-06 16:04:00 39.87 kg/m2 [facility] Systolic blood pressure 2022-06-15 14:24:00 117 mm[Hg] [facility] Diastolic blood pressure 2022-06-15 14:24:00 77 mm[Hg] [facility] Heart rate 2022-06-15 14:24:00 69 /min [facility] Body height 2022-06-15 14:24:00 175.3 cm [facility] Body weight 2022-06-15 14:24:00 123.378 kg [facility] BMI 2022-06-15 14:24:00 40.17 kg/m2 [facility] Oxygen saturation in Arterial blood by Pulse oximetry 2022-06-15 14:24:00 96 /min [facility] Systolic blood pressure 2022-05-15 15:30:00 111 mm[Hg] [facility] Diastolic blood pressure 2022-05-15 15:30:00 74 mm[Hg] [facility] Heart rate 2022-05-15 15:30:00 82 /min [facility] Body height 2022-05-15 15:30:00 175.3 cm [facility] Body weight 2022-05-15 15:30:00 120.657 kg [facility] BMI 2022-05-15 15:30:00 39.28 kg/m2 [facility] Oxygen saturation in Arterial blood by Pulse oximetry 2022-05-15 15:30:00 97 /min [facility] Systolic blood pressure 2022-04-15 18:30:00 124 mm[Hg] [facility] Diastolic blood pressure 2022-04-15 18:30:00 84 mm[Hg] [facility] Heart rate 2022-04-15 18:30:00 78 /min [facility] Body temperature 2022-04-15 18:30:00 36.56 Dariana [facility] Body height 2022-04-15 18:30:00 175.3 cm [facility] Body weight 2022-04-15 18:30:00 120.203 kg [facility] BMI 2022-04-15 18:30:00 39.13 kg/m2 [facility] Oxygen saturation in Arterial blood by Pulse oximetry 2022-04-15 18:30:00 96 /min [facility] Systolic blood pressure 2022-03-31 18:19:00 132 mm[Hg] [facility] Diastolic blood pressure 2022-03-31 18:19:00 86 mm[Hg] [facility] Heart rate 2022-03-31 18:19:00 76 /min [facility] Body height 2022-03-31 18:19:00 175.3 cm [facility] Body weight 2022-03-31 18:19:00 120.974 kg [facility] BMI 2022-03-31 18:19:00 39.38 kg/m2 [facility] Oxygen saturation in Arterial blood by Pulse oximetry 2022-03-31 18:19:00 98 /min [facility] Procedures Procedure Date / Time Performed Performing Clinician Source MR LUMBAR SPINE WO CONTRAST 2024-02-01 16:32:50 Remy Harp [facility] POCT MOLECULAR STREP 2024-01-19 15:25:00 Unknown, Leticia martin [facility] POCT SARS-COV-2 ANTIGEN (BINAX NOW) 2024-01-19 14:58:00 Noel Pruitt [facility] US ABDOMEN LIMITED 2023-06-23 19:20:00 [facility] (TTE) COMPLETE W/ CONTRAST 2023-06-07 21:43:25 Ch[facility] ANGIOGRAPHY CORONARIES WITH CARDIAC CALCIUM SCORE 2023-05-26 16:25:11 Chau [facility] HB CREATININE SERUM/BLOOD FOR IMAGING 2023-05-26 15:39:[address] [facility] ASSIGNMENT OF BENEFITS 2023-05-24 13:49:52 Docto r Unassigned, [place] [facility] FLU VACC ([id number]), 6 MO-64 YRS, .5ML, IM, QUAD (FLUCELVAX) 2023-05-10 18:20:42 Chau [facility] ASSIGNMENT OF BENEFITS 2023-03-19 14:11:57 Docto r Unassigned, [place] [facility] XR CHEST 2 VW 2023-03-19 13:45:21 Sharif Sultana [facility] LIPASE 2023-03-19 13:32:00 [facility] TROPONIN I 2023-03-19 13:32:00 Kade [facility] HEPATIC FUNCTION PANEL ([id number]) (ALB,T.PRO,BILI T,BU/BC,ALT,AST,ALK PHOS) 2023-03-19 13:32:[address] [facility] BASIC METABOLIC PANEL (NA, K, CL, CO2, GLUCOSE, BUN, CREATININE, CA) 2023-03-19 13:32:[address] [facility] CBC WITH DIFF 2023-03-19 13:32:00 Zeb SultanaDejon [facility] N-TERMINAL PRO-BNP 2023-03-19 13:32:00 KadeNikolayJuanpablo [facility] COVID-19 (ID NOW RAPID TESTING) 2023-03-19 13:32:00 Zeb SultanaDejon [facility] CONSENT/REFUSAL FOR DIAGNOSIS AND TREATMENT 2023-03-19 12:52:52 Doctor Unassigned, [place] [facility] POCT SARS-COV-2 ANTIGEN (BINAX NOW) 2023-02-22 01:56:00 Enid Mcfarland [facility] POCT MOLECULAR FLU 2023-02-22 01:53:00 Unknown, Attend clemencia [facility] POCT MOLECULAR STREP 2023-02-22 01:51:00 Unknown, Attyenny martin [facility] SLEEP STUDY DATA REPORT 2022-11-19 05:01:00 Doct or Unassigned, [place] [facility] PATIENT FINANCIAL POLICY 2022-10-16 19:17:12 Doctor Unassigned, [place] [facility] FL TIME OR (NON-REPORTABLE) 2022-08-14 15:46:17 Britton Yanez [facility] ASSIGNMENT OF BENEFITS 2022-05-21 14:24:22 Docto r Unassigned, [place] [facility] FLU VACC ([id number]), 6 MO-64 YRS, .5ML, IM, QUAD (FLUCELVAX) 2022-04-15 18:48:46 Remy Harp [facility] Encounters Start Date/Time End Date/Time Encounter Type Admission Type Attending Clinicians Care Facility Care Department Encounter ID Source 2021-05-20 09:37:11 Emergency [facility] [id number] [facility] 2024-03-24 14:30:00 2024-03-24 14:30:00 Outpatient R REMY HARP [facility] [id number] [facility] 2024-03-16 14:30:00 2024-03-16 16:10:31 Ancillary Visit Kaykay Merrill Craig L BrownKaykay [facility] [id number] [facility] 2024-03-16 14:30:00 2024-03-16 16:10:31 Outpatient R LARISA RICHARDS CRAIG [facility] [id number] [facility] 2024-03-14 00:00:00 2024-03-14 13:25:51 [facility] [id number] [facility] 2024-03-09 14:30:00 2024-03-09 15:34:56 Ancillary Visit Kaykay Merrill Craig L Brown Kaykay Torres [facility] [id number] [facility] 2024-03-02 14:30:00 2024-03-02 15:15:20 Ancillary Visit Renny Merrill [facility], Robert F [facility] [id number] [facility] 2024-03-02 13:45:00 2024-03-02 14:00:00 Director Of Enterprise Applications Visit Lab, Rosendo - Db Unknown, Attending Lab, Rosendo Maria [facility] HOSPITAL OFFICE BUILDING 1.84.114 350.1.13.10 4.2.7.2.686 [id number] [facility] 2024-03-02 13:45:00 2024-03-02 13:47:52 Outpatient R REMY HARP [facility] [id number] [facility] 2024-02-29 11:00:00 2024-02-29 11:00:00 Outpatient R REMY HARP [facility] [id number] [facility] 2024-01-23 00:00:00 2024-02-26 18:22:20 Patient Secure Msg Doctor Unassigned, [place] Doctor Unassigned, [place] [facility] MEDICAL OFFICE BUILDING 1..840.114 350.1.13.10 4.2.7.2.686 [id number] [id number] [facility] 2024-02-22 15:30:00 2024-02-22 15:44:52 Outpatient R REMY HARP [facility] [id number] [facility] 2024-02-22 15:30:00 2024-02-22 15:44:52 Office [facility] BU[facility] 1..840.114 350.1.13.10 4.2.7.2.686 [id number] [id number] [facility] 2024-02-18 13:00:00 2024-02-18 13:00:00 Outpatient JACKIE GIBSON RUTH [facility] [id number] [facility] 2024-02-17 10:00:00 2024-02-17 13:34:59 Outpatient R KAI DAVIDSON [facility] [id number] [facility] 2024-02-17 10:00:00 2024-02-17 13:34:59 Office Visit Kai Davidson [facility] MEDICAL OFFICE BUILDING 1..840.114 350.1.13.10 4.2.7.2.686 [id number] [facility] 2024-02-12 00:00:00 2024-02-14 16:09:29 Telephone KatiuskaEugeniaie [facility] KAVIN?[facility] MEDICAL OFFICE BUILDING 1.2.840.114 350.1.13.10 4.2.7.2.686 [id number] [id number] [facility] 2024-01-06 00:00:00 2024-02-12 18:25:53 Patient Secure Msg Doctor Unassigned, [place] [facility] MEDICAL OFFICE BUILDING 1.2.840.114 350.1.13.10 4.2.7.2.686 [id number] [facility] 2024-02-09 10:15:00 2024-02-09 11:19:46 Outpatient R LARISA RICHARDS CRAIG [facility] [id number] [facility] 2024-02-09 10:15:00 2024-02-09 11:19:46 Ancillary Visit Renny Merrill Craig L [facility] 1..840.114 350.1.13.10 4.2.7.2.686 [id number] [facility] 2024-02-02 10:15:00 2024-02-02 10:54:27 Ancillary Visit Kaykay Merrill Craig L [facility] 1.2.840.114 350.1.13.10 4.2.7.2.686 [id number] [facility] 2024-02-01 10:32:23 2024-02-01 23:59:00 Outpatient R REMY HARP [facility] [id number] [facility] 2024-02-01 10:32:23 2024-02-01 23:59:00 Hospital Encounter Remy Harp [facility] 1.2.840.114 350.1.13.10 4.2.7.2.686 [id number] [facility] 2024-01-31 14:30:00 2024-01-31 14:52:50 Outpatient R REMY HARP [facility] [id number] [facility] 2024-01-31 14:30:00 2024-01-31 14:52:50 Office Visit Remy Harp [facility] MEDICAL OFFICE BUILDING 1..840.114 350.1.13.10 4.2.7.2.686 [id number] [id number] [facility] 2024-01-28 13:30:00 2024-01-28 13:30:00 Outpatient R REMY HARP [facility] [id number] [facility] 2024-01-26 15:00:00 2024-01-26 15:18:17 Outpatient R REMY HARP [facility] [id number] [facility] 2024-01-26 15:00:00 2024-01-26 15:18:17 Office Visit Remy Harp [facility] K[facility]IN?[facility] MEDICAL OFFICE BUILDING 1..840.114 350.1.13.10 4.2.7.2.686 [id number] [facility] 2024-01-24 15:00:00 2024-01-24 15:00:00 Outpatient R REMY HARP [facility] [id number] [facility] 2024-01-20 00:00:00 2024-01-21 08:00:21 Refill Remy Harp [facility] OFF[facility] BUILDING 1.2.840.114 350.1.13.10 4.2.7.2.686 [id number] [id number] [facility] 2024-01-19 09:40:00 2024-01-19 10:40:58 Outpatient R AURELIO MCDONALD [facility] [id number] [facility] 2024-01-19 09:40:00 2024-01-19 10:40:58 Urgent Care Aurelio Mcdonald Unknown, Attending [facility]?RYANBull [facility] MEDICAL OFFICE BUILDING 1..840.114 350.1.13.10 4.2.7.2.686 [id number] [facility] 2024-01-14 00:00:00 2024-01-14 00:00:00 Outpatient R ROLYREMY Gottlieb [facility] [id number] [facility] 2024-01-10 13:45:00 2024-01-10 14:30:00 Ancillary Visit Renny Merrill Craig L [facility] NAL BUILDING 1..840.114 350.1.13.10 4.2.7.2.686 [id number] [facility] 2024-01-06 00:00:00 2024-01-06 07:59:14 Telephone [facility] MEDICAL OFFICE BUILDING 1..840.114 350.1.13.10 4.2.7.2.686 [id number] [facility] 2024-01-06 07:00:00 2024-01-06 07:31:53 Outpatient R VALERIA PHILIPPE [facility] [id number] [facility] 2024-01-06 07:00:00 2024-01-06 07:31:53 Office Visit Valeria Philippe [facility] MEDICAL OFFICE BUILDING 1..840.114 350.1.13.10 4.2.7.2.686 [id number] [id number] [facility] 2023-12-01 00:00:00 2024-01-01 18:17:45 Patient Secure Msg Doctor Unassigned, [place] [facility] 1.840.114 350.1.13.10 4.2.7.2.686 [id number] [id number] [facility] 2023-12-29 00:00:00 2023-12-31 10:51:15 Patient Secure Msg Rolybull Remy [facility] MEDICAL OFFICE BUILDING 1.2.840.114 350.1.13.10 4.2.7.2.686 [id number] [id number] [facility] 2023-12-29 00:00:00 2023-12-30 09:42:06 Telephone Remy Harp [facility] MEDICAL OFFICE BUILDING 1.2.840.114 350.1.13.10 4.2.7.2.686 [id number] [facility] 2023-12-30 08:45:00 2023-12-30 09:30:00 Ancillary Visit Renny Merrill Craig L [facility] BUILDING 1.2.840.114 350.1.13.10 4.2.7.2.686 [id number] [facility] 2023-12-23 00:00:00 2023-12-24 07:49:47 Refill Remy Harp [facility] MEDICAL OFFICE BUILDING 1..840.114 350.1.13.10 4.2.7.2.686 [id number] [facility] 2023-12-23 08:45:00 2023-12-23 11:32:17 Outpatient LARISA DIAZ CRAIG [facility] [id number] [facility] 2023-12-23 08:45:00 2023-12-23 09:30:00 Ancillary Visit Renny Merrill Craig L [facility] BUILDING 1.2.840.114 350.1.13.10 4.2.7.2.686 [id number] [facility] 2023-12-22 00:00:00 2023-12-22 00:00:00 Outpatient R KATIUSKA REMY [facility] [id number] [facility] 2023-12-17 10:30:00 2023-12-17 10:54:59 Outpatient R REMY HARP [facility] [id number] [facility] 2023-12-17 10:30:00 2023-12-17 10:54:59 Office Visit Remy Harp [facility] OFF[facility] BUILDING 1.2.840.114 350.1.13.10 4.2.7.2.686 [id number] [facility] 2023-12-16 14:30:00 2023-12-16 15:15:00 Ancillary Visit Renny Merrill Craig L [facility] BUILDING 1.2.840.114 350.1.13.10 4.2.7.2.686 [id number] [facility] 2023-12-03 12:00:00 2023-12-03 13:00:00 Ancillary Visit Lakeshia Covarrubias Craig L [facility] BUILDING 1.2.840.114 350.1.13.10 4.2.7.2.686 [id number] [facility] 2023-12-03 12:00:00 2023-12-03 12:00:00 Outpatient R LARISA RICHARDS CRAIG [facility] [id number] [facility] 2023-11-16 13:30:00 2023-11-16 14:01:56 Outpatient R REMY HARP [facility] [id number] [facility] 2023-11-16 13:30:00 2023-11-16 14:01:56 Office Visit Remy Harp [facility] 1.2.840.114 350.1.13.10 4.2.7.2.686 [id number] [facility] 2023-11-09 13:40:00 2023-11-09 14:00:00 Urgent Care Ebmalvinm, Noel Unknown, Attending [facility] BU[facility] 1.114 350.1.13.10 4.2.7.2.686 [id number] [facility] 2023-11-09 13:40:00 2023-11-09 13:40:00 Outpatient R NOEL PRUITT [facility] [id number] [facility] 2023-08-03 10:00:00 2023-08-03 10:00:00 Outpatient R [facility] [id number] [facility] 2023-07-08 00:00:00 2023-07-08 00:00:00 Telephone Britton Yanez [facility] 1.114 350.1.13.10 4.2.7.2.686 [id number] [facility] 2023-06-23 12:46:42 2023-06-23 23:59:00 Outpatient R REMY HARP [facility] [id number] [facility] 2023-06-23 12:46:42 2023-06-23 23:59:00 Hospital Encounter RolyRemy gottlieb [facility] 1.114 350.1.13.10 4.2.7.2.686 [id number] [facility] 2023-06-23 00:00:00 2023-06-23 00:00:00 Telephone Katiuska Remy [facility] 1.114 350.1.13.10 4.2.7.2.686 [id number] [id number] [facility] 2023-06-23 00:00:00 2023-06-23 00:00:00 Patient Secure Msg Doctor Unassigned, [place] [facility] 1..114 350.1.13.10 4.2.7.2.686 [id number] [facility] 2023-06-21 00:00:00 2023-06-21 00:00:00 Wilder Rolybull Remy [facility] 1.2.84.114 350.1.13.10 4.2.7.2.686 [id number] [id number] [facility] 2023-06-08 00:00:00 2023-06-08 00:00:00 Patient Secure Msg Chau [facility] BUILDING 1.2.840.114 350.1.13.10 4.2.7.2.686 [id number] [facility] 2023-06-07 14:48:39 2023-06-07 23:59:00 Outpatient R CHAU [facility] [id number] [facility] 2023-06-07 14:48:39 2023-06-07 23:59:00 Hospital Encounter Chau, [facility] BUILDING 1.2.840.114 350.1.13.10 4.2.7.2.686 [id number] [facility] 2023-05-27 00:00:00 2023-05-27 00:00:00 Patient Secure Msg Chau [facility] BUILDING 1.2.840.114 350.1.13.10 4.2.7.2.686 [id number] [facility] 2023-05-26 09:07:34 2023-05-26 23:59:00 Outpatient R CHAU [facility] [id number] [facility] 2023-05-26 09:07:34 2023-05-26 23:59:00 Hospital Encounter Chau, [facility] 1.2.840.114 350.1.13.10 4.2.7.2.686 [id number] [facility] 2023-05-25 00:00:00 2023-05-25 00:00:00 Telephone Remy Harp [facility] K[facility] MEDICAL OFFICE BUILDING 1.840.114 350.1.13.10 4.2.7.2.686 [id number] [facility] 2023-05-25 00:00:00 2023-05-25 00:00:00 Patient Secure Msg Doctor Unassigned, [place] [facility] OFF[facility] BUILDING 1.840.114 350.1.13.10 4.2.7.2.686 [id number] 044 [id number] [facility] 2023-05-24 08:30:00 2023-05-24 08:45:00 Director Of Enterprise Applications Visit Lab, Rosendo - Crow Remy Harp [facility] K[facility]IN?[facility] MEDICAL OFFICE BUILDING 1.84.114 350.1.13.10 4.2.7.2.686 [id number] [facility] 2023-05-24 08:30:00 2023-05-24 08:30:00 Outpatient R REMY HARP [facility] [id number] [facility] 2023-05-24 08:00:00 2023-05-24 08:20:31 Office Visit Remy Harp [facility] MEDICAL OFFICE BUILDING 1.84.114 350.1.13.10 4.2.7.2.686 [id number] [id number] [facility] 2023-05-24 00:00:00 2023-05-24 00:00:00 Orders Only Doctor Unassigned, [place] [facility] 1.84.114 350.1.13.10 4.2.7.2.686 [id number] [facility] 2023-05-17 16:00:00 2023-05-17 16:00:00 [id number] 2023-05-10 13:20:00 2023-05-10 13:36:24 [facility] [id number] [facility] 2023-05-10 13:20:00 2023-05-10 13:36:24 [facility] 1.840.114 350.1.13.10 4.2.7.2.686 [id number] [facility] 2023-03-30 11:30:00 2023-03-30 12:01:28 Outpatient R REMY HARP [facility] [id number] [facility] 2023-03-30 11:30:00 2023-03-30 12:01:28 Office Visit Katiuska [facility] KAVIN?[facility] BUILDING 1..840.114 350.1.13.10 4.2.7.2.686 [id number] [id number] [facility] 2023-03-30 00:00:00 2023-03-30 00:00:00 Telephone Katiuska Rem[facility] BUILDING 1..840.114 350.1.13.10 4.2.7.2.686 [id number] [id number] [facility] 2023-03-26 14:00:00 2023-03-26 14:15:00 Director Of Enterprise Applications Visit Lab, Ang - [facility] BUILDING 1..840.114 350.1.13.10 4.2.7.2.686 [id number] [facility] 2023-03-26 13:30:00 2023-03-26 13:48:23 Outpatient R REMY HARP [facility] [id number] [facility] 2023-03-26 13:30:00 2023-03-26 13:48:23 Office Visit Remy Harp [facility] K[facility]IN?[facility] MEDICAL OFFICE BUILDING 1.2840.114 350.1.13.10 4.2.7.2.686 [id number] [id number] [facility] 2023-03-26 00:00:00 2023-03-26 00:00:00 Pre Visit Outreach Sandra Taylor 1.2840.114 350.1.13.10 4.2.7.2.686 [id number] [facility] 2023-03-24 10:30:00 2023-03-24 10:50:14 Outpatient R REMY HARP [facility] [id number] [facility] 2023-03-24 10:30:00 2023-03-24 10:50:14 Office Visit Remy Harp [facility] K[facility]IN?[facility] MEDICAL OFFICE BUILDING 1.2840.114 350.1.13.10 4.2.7.2.686 [id number] [id number] [facility] 2023-03-24 00:00:00 2023-03-24 00:00:00 [facility] MEDICAL OFFICE BUILDING 1.2840.114 350.1.13.10 4.2.7.2.686 [id number] [facility] 2023-03-19 08:00:00 2023-03-19 10:31:00 Emergency X SHARIF SULTANA HEE-KWANG [facility] ERT [id number] [facility] 2023-03-19 08:00:00 2023-03-19 10:31:00 Emergency Sharif Sultana [facility] 1.2840.114 350.1.13.10 4.2.7.2.686 [id number] [facility] 2023-03-17 08:00:00 2023-03-17 08:00:00 Outpatient R ROLYBull REMY [facility] [id number] [facility] 2023-03-15 14:00:00 2023-03-15 14:00:00 Outpatient R REMY HARP [facility] [id number] [facility] 2023-03-08 14:00:00 2023-03-08 14:00:00 Outpatient R JACKIE MCKEON RUTH [facility] [id number] [facility] 2023-02-21 20:40:00 2023-02-21 21:00:00 Urgent Care Enid Mcfarland Unknown, Attending [facility] K[facility]IN?[facility] BUILDING 1.2.840.114 350.1.13.10 4.2.7.2.686 [id number] [facility] 2023-02-21 20:40:00 2023-02-21 20:40:00 Outpatient R ENID MCFARLAND [facility] [id number] [facility] 2023-02-17 00:00:00 2023-02-17 00:00:00 Telephone Jackie Mckeon Sarahkb [facility] MEDICAL OFFICE BUILDING 1.2.840.114 350.1.13.10 4.2.7.2.686 [id number] [facility] 2023-02-16 14:00:00 2023-02-16 14:19:07 Outpatient R JACKIE MCKEON RUTH [facility] [id number] [facility] 2023-02-16 14:00:00 2023-02-16 14:19:07 Office Visit Jackie Mckeon [facility] MEDICAL OFFICE BUILDING 1.2.840.114 350.1.13.10 4.2.7.2.686 [id number] [id number] [facility] 2023-02-16 00:00:00 2023-02-16 00:00:00 Telephone Jackie Mckeon [facility] MEDICAL OFFICE BUILDING 1.2.840.114 350.1.13.10 4.2.7.2.686 [id number] [facility] 2023-01-06 11:00:00 2023-01-06 11:00:00 Outpatient BRITTON MERCHANT [facility] [id number] [facility] 2022-12-23 00:00:00 2022-12-23 00:00:00 Patient Secure Msg Jackie Mckeon [facility] MEDICAL OFFICE BUILDING 1.2.840.114 350.1.13.10 4.2.7.2.686 [id number] [facility] 2022-12-15 13:30:00 2022-12-15 13:42:43 Outpatient R REMY HARP [facility] [id number] [facility] 2022-12-15 13:30:00 2022-12-15 13:42:43 Office Visit Remy Harp [facility] K[facility]IN?[facility] BUILDING 1.2.840.114 350.1.13.10 4.2.7.2.686 [id number] [facility] 2022-12-10 08:45:00 2022-12-10 09:30:00 Ancillary Visit Kaykay Merrill Michael J [facility] BUILDING 1.2.840.114 350.1.13.10 4.2.7.2.686 [id number] [facility] 2022-12-10 08:45:00 2022-12-10 08:45:00 Outpatient BRITTON MERCHANT [facility] [id number] [facility] 2022-12-09 15:15:00 2022-12-09 16:00:00 Ancillary Visit Aurelio Abarca Michael J [facility] BUILDING 1.2.840.114 350.1.13.10 4.2.7.2.686 [id number] [facility] 2022-12-09 10:00:00 2022-12-09 10:39:25 Outpatient R BRITTON YANEZ [facility] [id number] [facility] 2022-12-09 10:00:00 2022-12-09 10:39:25 Office Visit Britton Yanez [facility] 1.284.114 350.1.13.10 4.2.7.2.686 [id number] [facility] 2022-12-04 09:30:00 2022-12-04 10:24:02 Ancillary Visit Kaykay Merrill Craig L [facility] BUILDING 1.2.840.114 350.1.13.10 4.2.7.2.686 [id number] [facility] 2022-12-02 15:15:00 2022-12-02 16:00:00 Ancillary Visit Renny Merrill Craig L [facility] BUILDING 1.2.840.114 350.1.13.10 4.2.7.2.686 [id number] [facility] 2022-11-26 00:00:00 2022-11-26 00:00:00 Case Management Sarah Troy [facility] BUILDING 1.2.840.114 350.1.13.10 4.2.7.2.686 [id number] [facility] 2022-11-24 00:00:00 2022-11-24 00:00:00 Patient Secure Jackie Bonner [facility] OFFICE BUILDING 1.2.840.114 350.1.13.10 4.2.7.2.686 [id number] [id number] [facility] 2022-11-24 00:00:00 2022-11-24 00:00:00 Telephone Remy Harp [facility] MED[facility] OFF[facility] BUILDING 1.840.114 350.1.13.10 4.2.7.2.686 [id number] [id number] [facility] 2022-11-24 00:00:00 2022-11-24 00:00:00 Telephone Jackie Mckeon [facility] MEDICAL OFFICE BUILDING 1.0.114 350.1.13.10 4.2.7.2.686 [id number] [id number] [facility] 2022-11-19 15:00:00 2022-11-19 15:15:00 Director Of Enterprise Applications Visit [facility] Alireza Shipman [facility] 1.0.114 350.1.13.10 4.2.7.2.686 [id number] [facility] 2022-11-19 15:00:00 2022-11-19 15:00:00 Outpatient R ALIREZA SHIPMAN STRATXAlexander [facility] [id number] [facility] 2022-11-19 13:45:00 2022-11-19 14:30:00 Ancillary Visit Sarah Troy Craig L [facility] 1.840.114 350.1.13.10 4.2.7.2.686 [id number] [facility] 2022-11-19 00:00:00 2022-11-19 00:00:00 Orders Only Doctor Unassigned, [place] [facility] 1.840.114 350.1.13.10 4.2.7.2.686 [id number] [facility] 2022-11-18 09:30:00 2022-11-18 09:59:39 Ancillary Visit Renny Merrill Craig L [facility] 1.2.840.114 350.1.13.10 4.2.7.2.686 [id number] [facility] 2022-11-13 14:30:00 2022-11-13 17:14:36 Outpatient R ROLYBull REMY [facility] [id number] [facility] 2022-11-13 14:30:00 2022-11-13 17:14:36 Office Visit Katiuska Remy [facility] 1..840.114 350.1.13.10 4.2.7.2.686 [id number] [facility] 2022-11-12 10:15:00 2022-11-12 10:56:23 Ancillary Visit Renny Merrill Craig L [facility] 1..840.114 350.1.13.10 4.2.7.2.686 [id number] [facility] 2022-11-05 13:45:00 2022-11-05 14:32:29 Outpatient LARISA DIAZ [facility] [id number] [facility] 2022-11-05 13:45:00 2022-11-05 14:32:29 Ancillary Visit Charity Rodriguez Craig [facility] 1..840.114 350.1.13.10 4.2.7.2.686 [id number] [facility] 2022-11-04 13:30:00 2022-11-04 13:49:05 Outpatient JACKIE GIBSON RUTH [facility] [id number] [facility] 2022-11-04 13:30:00 2022-11-04 13:49:05 Office Visit Jackie Mckeon [facility] 1.840.114 350.1.13.10 4.2.7.2.686 [id number] [facility] 2022-10-16 14:30:00 2022-10-16 14:52:34 Outpatient R REMY HARP [facility] [id number] [facility] 2022-10-16 14:30:00 2022-10-16 14:52:34 Office Visit Katiuska Remy [facility] 1.840.114 350.1.13.10 4.2.7.2.686 [id number] [facility] 2022-10-16 00:00:00 2022-10-16 00:00:00 Orders Only Doctor Unassigned, [place] [facility] 1.840.114 350.1.13.10 4.2.7.2.686 [id number] [facility] 2022-09-29 00:00:00 2022-09-29 00:00:00 [facility] 1.840.114 350.1.13.10 4.2.7.2.686 [id number] [facility] 2022-09-28 13:00:00 2022-09-28 13:00:00 Outpatient R BRITTON YANEZ [facility] [id number] [facility] 2022-09-15 08:30:00 2022-09-15 08:30:00 Outpatient R REMY HARP [facility] [id number] [facility] 2022-09-09 14:30:00 2022-09-09 15:03:40 Office Visit Katiuska Remy [facility] 1.840.114 350.1.13.10 4.2.7.2.686 [id number] [facility] 2022-09-09 10:15:00 2022-09-09 10:55:09 Outpatient R BRITTON YANEZ [facility] [id number] [facility] 2022-09-09 10:15:00 2022-09-09 10:55:09 Office Visit Britton Yanez [facility]ULTISPEC [facility]TY [facility]ENTER AND [facility] 1.0.114 350.1.13.10 4.2.7.2.686 [id number] [facility] 2022-09-03 13:00:00 2022-09-03 13:00:00 Outpatient REMY ALONZO [facility] [id number] [facility] 2022-08-25 00:00:00 2022-08-25 00:00:00 Telephone Britton Yanez [facility] 1.0.114 350.1.13.10 4.2.7.2.686 [id number] [id number] [facility] 2022-08-18 00:00:00 2022-08-18 00:00:00 Telephone [facility] 1..114 350.1.13.10 4.2.7.2.686 [id number] [facility] 2022-08-17 11:30:00 2022-08-17 12:00:41 Office Visit Remy Harp [facility] 1.84.114 350.1.13.10 4.2.7.2.686 [id number] [id number] [facility] 2022-08-17 11:30:00 2022-08-17 11:30:00 Outpatient REMY ALONZO [facility] [id number] [facility] 2022-08-17 00:00:00 2022-08-17 00:00:00 Telephone Remy Harp [facility] 1.84.114 350.1.13.10 4.2.7.2.686 [id number] [facility] 2022-08-14 09:07:14 2022-08-14 23:59:00 Outpatient R BRITTON YANEZ [facility] [id number] [facility] 2022-08-14 09:07:14 2022-08-14 23:59:00 Hospital Encounter Britton Yanez [facility] MULTISPEC [facility]TY [facility]ENTER AND [facility] 1..114 350.1.13.10 4.2.7.2.686 [id number] [facility] 2022-08-14 09:00:00 2022-08-14 09:30:00 Office Visit Britton [facility] 1..114 350.1.13.10 4.2.7.2.686 [id number] [facility] 2022-08-13 00:00:00 2022-08-13 00:00:00 Telephone Britton [facility] 1..114 350.1.13.10 4.2.7.2.686 [id number] [facility] 2022-08-13 00:00:00 2022-08-13 00:00:00 Patient Secure Msg Doctor Unassigned, [place] [facility] [place] [facility] 1..114 350.1.13.10 4.2.7.2.686 [id number] [facility] 2022-08-12 16:00:00 2022-08-12 16:00:00 Office Visit Britton Yanez [facility] 1.2.840.114 350.1.13.10 4.2.7.2.686 [id number] [facility] 2022-08-12 16:00:00 2022-08-12 15:49:06 Outpatient R BRITTON YANEZ [facility] [id number] [facility] 2022-07-15 15:30:00 2022-07-15 16:01:06 Outpatient R REMY HARP [facility] [id number] [facility] 2022-07-15 15:30:00 2022-07-15 16:01:06 Office Visit Remy Harp [facility] 1.2.840.114 350.1.13.10 4.2.7.2.686 [id number] [facility] 2022-07-15 00:00:00 2022-07-15 00:00:00 [facility] 1.2.840.114 350.1.13.10 4.2.7.2.686 [id number] [facility] 2022-07-14 13:30:00 2022-07-14 13:30:00 Outpatient R REMY HARP [facility] [id number] [facility] 2022-07-07 00:00:00 2022-07-07 00:00:00 Telephone Lety [facility] MEDICAL OFFICE BUILD[facility] 1.2.840.114 350.1.13.10 4.2.7.2.686 [id number] [facility] 2022-07-06 09:45:00 2022-07-06 10:00:00 Office Visit Lety [facility] MEDICAL OFFICE BUILDING 1.2.840.114 350.1.13.10 4.2.7.2.686 [id number] [facility] 2022-07-06 09:45:00 2022-07-06 09:45:00 Outpatient R LETYKAI [facility] [id number] [facility] 2022-06-15 08:30:00 2022-06-15 08:49:58 Outpatient R REMY HARP [facility] [id number] [facility] 2022-06-15 08:30:00 2022-06-15 08:49:58 Office Visit RolyRemy gottlieb [facility] 1..840.114 350.1.13.10 4.2.7.2.686 [id number] [facility] 2022-06-08 00:00:00 2022-06-08 00:00:00 Refill Joselito Beauchamp [facility] 1..840.114 350.1.13.10 4.2.7.2.686 [id number] [facility] 2022-06-03 14:30:00 2022-06-03 15:16:01 Outpatient LARISA DIAZ [facility] [id number] [facility] 2022-06-03 14:30:00 2022-06-03 15:16:01 Ancillary Visit Kaykay Merrill Craig L [facility] 1..840.114 350.1.13.10 4.2.7.2.686 [id number] [facility] 2022-05-27 14:30:00 2022-05-27 15:29:21 Ancillary Visit Kaykay Merrill Craig L [facility] BU[facility] 1..840.114 350.1.13.10 4.2.7.2.686 [id number] [facility] 2022-05-21 08:45:00 2022-05-21 09:27:12 Ancillary Visit Garfield Kaykay Larisa Oswald [facility] 1.84.114 350.1.13.10 4.2.7.2.686 [id number] [facility] 2022-05-21 00:00:00 2022-05-21 00:00:00 Orders Only Doctor Unassigned, [place] [facility] 1.2.114 350.1.13.10 4.2.7.2.686 [id number] [facility] 2022-05-15 10:30:00 2022-05-15 11:04:40 Outpatient R REMY HARP [facility] [id number] [facility] 2022-05-15 10:30:00 2022-05-15 11:04:40 Office Visit Remy Harp [facility] 1.284.114 350.1.13.10 4.2.7.2.686 [id number] [facility] 2022-05-14 14:30:00 2022-05-14 15:15:00 Ancillary Visit Sarah Troy Craig L [facility] BU[facility] 1.284.114 350.1.13.10 4.2.7.2.686 [id number] [facility] 2022-05-14 14:30:00 2022-05-14 14:30:00 Outpatient R LARISA RICHARDS [facility] [id number] [facility] 2022-05-07 14:30:00 2022-05-07 15:15:00 Ancillary Visit Sarah Troy Craig L [facility] 1.284.114 350.1.13.10 4.2.7.2.686 [id number] [facility] 2022-04-23 09:30:00 2022-04-23 10:15:00 Ancillary Visit Kaykay Merrill Craig L [facility] 1.840.114 350.1.13.10 4.2.7.2.686 [id number] [facility] 2022-04-23 00:00:00 2022-04-23 00:00:00 Refill Katiuska Remy [facility]?RY[facility]ull [facility] 1.840.114 350.1.13.10 4.2.7.2.686 [id number] [facility] 2022-04-17 09:30:00 2022-04-17 09:30:00 Outpatient REMY ALONZO [facility] [id number] [facility] 2022-04-16 09:30:00 2022-04-16 11:06:05 Outpatient R LARISA RICHARDS [facility] [id number] [facility] 2022-04-16 09:30:00 2022-04-16 11:06:05 Outpatient R LARISA RICHARDS [facility] [id number] [facility] 2022-04-16 09:30:00 2022-04-16 11:06:05 Ancillary Visit Kaykay Merrill Craig L [facility] 1.840.114 350.1.13.10 4.2.7.2.686 [id number] [facility] 2022-04-15 13:30:00 2022-04-15 13:57:30 Outpatient REMY ALONZO [facility] [id number] [facility] 2022-04-15 13:30:00 2022-04-15 13:57:30 Office Visit Katiuska Remy [facility] 1.840.114 350.1.13.10 4.2.7.2.686 [id number] [id number] [facility] 2022-04-09 09:30:00 2022-04-09 10:15:00 Ancillary Visit Kaykay Merrill Craig L [facility] 1.840.114 350.1.13.10 4.2.7.2.686 [id number] [facility] 2022-04-02 09:30:00 2022-04-02 09:30:00 Outpatient R LARISA RICHARDS [facility] [id number] [facility] 2022-03-31 13:30:00 2022-03-31 14:00:00 Office Visit Remy Harp [facility] 1.840.114 350.1.13.10 4.2.7.2.686 [id number] [facility] 2022-03-31 13:30:00 2022-03-31 13:30:00 Outpatient R REMY HARP [facility] [id number] [facility] 2022-03-31 11:30:00 2022-03-31 11:30:00 Outpatient R REMY HARP [facility] [id number] [facility] 2022-03-26 09:30:00 2022-03-26 10:22:00 Ancillary Visit Kaykay Merrill Craig L [facility] 1.840.114 350.1.13.10 4.2.7.2.686 [id number] [facility] 2022-03-24 00:00:00 2022-03-24 00:00:00 Orders Only Doctor Unassigned, [place] [facility] 1.84.114 350.1.13.10 4.2.7.2.686 [id number] [facility] 2022-03-19 09:30:00 2022-03-19 10:13:17 Ancillary Visit Renny Merrill Craig L [facility] BU[facility] 1.84.114 350.1.13.10 4.2.7.2.686 [id number] [facility] 2022-03-16 09:00:00 2022-03-16 09:15:00 Director Of Enterprise Applications Visit Lab, Rosendo DunhamRemy gottlieb [facility] 1.84.114 350.1.13.10 4.2.7.2.686 [id number] [facility] 2022-03-16 08:00:00 2022-03-16 09:02:44 Office Visit Remy Harp [facility] BUILD[facility] 1.84.114 350.1.13.10 4.2.7.2.686 [id number] [facility] 2022-03-16 08:00:00 2022-03-16 09:02:44 Outpatient R KATIUSKA REMY [facility] [id number] [facility] 2022-03-16 09:00:00 2022-03-16 09:00:00 Outpatient R REMY HARP [facility] [id number] [facility] 2022-03-16 08:00:00 2022-03-16 08:00:00 Outpatient R KATIUSKA REMY [facility] [id number] [facility] 2022-03-12 09:30:00 2022-03-12 10:10:13 Outpatient R LARISA RICHARDS [facility] [id number] [facility] 2022-03-12 09:30:00 2022-03-12 10:10:13 Ancillary Visit Sarah Troy Craig L [facility] 1.84.114 350.1.13.10 4.2.7.2.686 [id number] [facility] 2022-03-05 09:30:00 2022-03-05 10:15:00 Ancillary Visit Renny MerrillLarisa [facility] 1.2.840.114 350.1.13.10 4.2.7.2.686 [id number] [facility] 2022-02-26 08:45:00 2022-02-26 09:30:00 Ancillary Visit GarfieldRennyLarisa [facility] 1..840.114 350.1.13.10 4.2.7.2.686 [id number] [facility] 2022-02-20 08:45:00 2022-02-20 09:25:43 Outpatient LARISA DIAZ [facility] [id number] [facility] 2022-02-20 08:45:00 2022-02-20 09:25:43 Ancillary Visit Charity Rodriguez Craig [facility] 1.2.840.114 350.1.13.10 4.2.7.2.686 [id number] [facility] 2022-02-20 08:45:00 2022-02-20 08:45:00 Outpatient LARISA DIAZ [facility] [id number] [facility] 2022-02-10 00:00:00 2022-02-10 00:00:00 Telephone [facility] 1..840.114 350.1.13.10 4.2.7.2.686 [id number] [facility] 2022-02-09 13:30:00 2022-02-09 13:54:25 Outpatient REMY ALONZO [facility] [id number] [facility] 2022-02-09 13:30:00 2022-02-09 13:54:25 Office Visit KatiuskaRemy [facility] MED[facility] OFF[facility] BUILDING 1.2840.114 350.1.13.10 4.2.7.2.686 [id number] [facility] 2022-01-14 16:00:00 2022-01-14 16:15:00 Director Of Enterprise Applications Visit Lab, Rosendo Maria [facility] BU[facility] 1.2840.114 350.1.13.10 4.2.7.2.686 [id number] [facility] 2022-01-14 16:00:00 2022-01-14 16:00:00 Outpatient R ABDULAZIZ [facility] [id number] [facility] 2022-01-14 10:20:00 2022-01-14 10:51:11 Outpatient R ABDULAZIZ [facility] [id number] [facility] 2022-01-14 10:20:00 2022-01-14 10:51:11 Urgent Care Abdulaziz [facility] 1.2840.114 350.1.13.10 4.2.7.2.686 [id number] [facility] 2022-01-13 00:00:00 2022-01-13 00:00:00 Telephone Lety [facility] MEDICAL OFFICE BUILDING 1.2840.114 350.1.13.10 4.2.7.2.686 [id number] [facility] 2022-01-13 00:00:00 2022-01-13 00:00:00 Patient Secure Msg Lety [facility] MEDICAL OFFICE BUILDING 1.2.840.114 350.1.13.10 4.2.7.2.686 [id number] [facility] 2022-01-12 14:00:00 2022-01-12 14:15:00 Office Visit Kai Davidson [facility] MEDICAL OFFICE BUILDING 1..840.114 350.1.13.10 4.2.7.2.686 [id number] [facility] 2022-01-12 14:00:00 2022-01-12 14:00:00 Outpatient R LORI DAVIDSONHI [facility] [id number] [facility] 2022-01-05 14:30:00 2022-01-05 14:54:41 Outpatient R KATIUSKA REMY [facility] [id number] [facility] 2022-01-05 14:30:00 2022-01-05 14:54:41 Office Visit Remy Harp [facility] 1..840.114 350.1.13.10 4.2.7.2.686 [id number] [facility] 2021-12-31 14:44:26 2021-12-31 23:59:00 Outpatient R REMY HARP [facility] [id number] [facility] 2021-12-31 14:44:26 2021-12-31 23:59:00 Hospital Encounter Rolybull Remy [facility] 1..840.114 350.1.13.10 4.2.7.2.686 [id number] [facility] 2021-12-29 00:00:00 2021-12-29 00:00:00 Patient Secure Msg Doctor Unassigned, [place] [facility] 1..840.114 350.1.13.10 4.2.7.2.686 [id number] [facility] 2021-12-10 15:15:00 2021-12-10 16:00:00 Ancillary Visit Lindy Lopez Craig L [facility] BUILD[facility] 1..840.114 350.1.13.10 4.2.7.2.686 [id number] [facility] 2021-12-10 15:15:00 2021-12-10 15:15:00 Outpatient R SUSIE LARISA [facility] [id number] [facility] 2021-12-10 15:15:00 2021-12-10 15:15:00 Outpatient R LARISA RICHARDS [facility] [id number] [facility] 2021-12-05 15:30:00 2021-12-05 16:06:36 Outpatient R KATIUSKA REMY [facility] [id number] [facility] 2021-12-05 15:30:00 2021-12-05 16:06:36 [facility] BUILD[facility] 1.840.114 350.1.13.10 4.2.7.2.686 [id number] [facility] 2021-12-05 15:30:00 2021-12-05 15:30:00 Outpatient R ROLYREMY Gottlieb [facility] [id number] [facility] 2021-12-04 13:00:00 2021-12-04 13:45:00 Ancillary Visit Lindy Lopez Craig L [facility] BU[facility] 1..840.114 350.1.13.10 4.2.7.2.686 [id number] [facility] 2021-12-04 00:00:00 2021-12-04 00:00:00 Darrynill Joselito Beauchamp [facility] MEDICAL OFFICE BUILDING 1..840.114 350.1.13.10 4.2.7.2.686 [id number] [facility] 2021-12-01 14:30:00 2021-12-01 15:15:00 Ancillary Visit Lindy Lopez Craig L [facility] BU[facility] 1.2.840.114 350.1.13.10 4.2.7.2.686 [id number] [facility] 2021-11-24 14:30:00 2021-11-24 15:15:00 Ancillary Visit Lindy Lopez Craig L [facility] BU[facility] 1.2.840.114 350.1.13.10 4.2.7.2.686 [id number] [facility] 2021-11-24 00:00:00 2021-11-24 00:00:00 Orders Only Doctor Unassigned, [place] [facility] 1.2840.114 350.1.13.10 4.2.7.2.686 [id number] [facility] 2021-11-19 00:00:00 2021-11-19 00:00:00 Joselito Hamilton [facility]ILD[facility] 1.2840.114 350.1.13.10 4.2.7.2.686 [id number] [facility] 2021-11-17 08:45:00 2021-11-17 09:30:00 Ancillary Visit Lindy Lopez Craig L [facility] BUILD[facility] 1.2.840.114 350.1.13.10 4.2.7.2.686 [id number] [facility] 2021-11-07 00:00:00 2021-11-07 00:00:00 Orders Only Doctor Unassigned, [place] [facility] 1.2.840.114 350.1.13.10 4.2.7.2.686 [id number] [facility] 2021-11-05 16:00:00 2021-11-05 16:47:07 Outpatient R ROLYREMY Gottlieb [facility] [id number] [facility] 2021-11-05 16:00:00 2021-11-05 16:47:07 Office Visit RolyRemy gottlieb [facility] MEDICAL OFFICE BUILDING 1.2.840.114 350.1.13.10 4.2.7.2.686 [id number] [facility] 2021-10-31 15:30:00 2021-10-31 16:04:43 Outpatient R KATIUSKA REMY [facility] [id number] [facility] 2021-10-31 15:30:00 2021-10-31 16:00:00 Office Visit KatiuskaRemy [facility] MEDICAL OFFICE BUILDING 1.2.840.114 350.1.13.10 4.2.7.2.686 [id number] [facility] 2021-10-31 15:30:00 2021-10-31 15:30:00 Outpatient R KATIUSKA REMY [facility] [id number] [facility] 2021-10-29 13:00:00 2021-10-29 13:00:00 Outpatient R VALERIA PHILIPPE [facility] [id number] [facility] 2021-10-28 16:32:54 2021-10-28 23:59:00 Outpatient R KATIUSKA REMY [facility] [id number] [facility] 2021-10-28 16:30:00 2021-10-28 16:31:00 Outpatient R REMY HARP [facility] [id number] [facility] 2021-10-28 16:00:00 2021-10-28 16:30:00 Office Visit KatiuskaRemy [facility] MEDICAL OFFICE BUILDING 1.2.840.114 350.1.13.10 4.2.7.2.686 [id number] [facility] 2021-10-28 16:00:00 2021-10-28 16:00:00 Outpatient R REMY HARP [facility] [id number] [facility] 2021-07-30 00:00:00 2021-07-30 00:00:00 Telephone Abdulaziz [facility] BUILD[facility] 1.2.840.114 350.1.13.10 4.2.7.2.686 [id number] [facility] 2021-07-25 17:48:49 2021-07-25 23:59:00 Hospital Encounter [facility] 1.2.840.114 350.1.13.10 4.2.7.2.686 [id number] [facility] 2021-07-25 18:00:00 2021-07-25 18:20:00 Urgent Care Dhara Cintron [facility] 1.284.114 350.1.13.10 4.2.7.2.686 [id number] [facility] 2021-07-25 18:00:00 2021-07-25 18:02:39 Outpatient R HILL BEDOLLA [facility] [id number] [facility] 2021-07-25 15:30:00 2021-07-25 15:30:00 Outpatient R VALERIA PHILIPPE [facility] [id number] [facility] 2021-07-22 00:00:00 2021-07-22 00:00:00 Patient Secure Msg Doctor Unassigned, [place] [facility] 1.2.840.114 350.1.13.10 4.2.7.2.686 [id number] [facility] 2021-07-17 13:00:00 2021-07-17 13:00:00 Outpatient R REFUGIO PAIZ [facility] [id number] [facility] 2021-07-15 19:15:00 2021-07-15 19:30:00 Laboratory Only Only, Ang Db Test [place] Bedolla [facility] 1.840.114 350.1.13.10 4.2.7.2.686 [id number] [facility] 2021-07-15 19:20:00 2021-07-15 19:20:00 Outpatient R DHARA CINTRON [facility] [id number] [facility] 2021-07-15 19:15:00 2021-07-15 19:15:00 Outpatient R ELIZ BEDOLLATANY [facility] [id number] [facility] 2021-07-10 10:19:00 2021-07-10 15:02:00 Emergency X HI [place] [facility] ERT [id number] [facility] 2021-07-10 10:19:00 2021-07-10 15:02:00 Emergency Hi [place]ona F [facility] 1.840.114 350.1.13.10 4.2.7.2.686 [id number] [facility] 2021-07-10 08:30:00 2021-07-10 08:30:00 Outpatient VALERIA JOSE [facility] [id number] [facility] 2021-06-25 16:00:00 2021-06-25 16:00:00 Outpatient VALERIA JOSE [facility] [id number] [facility] 2021-06-19 00:00:00 2021-06-19 00:00:00 Patient Secure Alejandra Nagy [facility] 1.840.114 350.1.13.10 4.2.7.2.686 [id number] [facility] 2021-06-10 13:07:44 2021-06-10 13:22:44 Director Of Enterprise Applications Visit [facility] Alejandra Vargas [facility] 1.2840.114 350.1.13.10 4.2.7.2.686 [id number] [facility] 2021-06-10 12:30:00 2021-06-10 13:08:41 Outpatient ALEJANDRA HARRINGTON [facility] [id number] [facility] 2021-06-10 12:19:46 2021-06-10 13:08:41 [facility] 1.2840.114 350.1.13.10 4.2.7.2.686 [id number] [facility] 2021-06-03 00:00:00 2021-06-03 00:00:00 Orders Only Doctor Unassigned, [place] [facility] 1.2840.114 350.1.13.10 4.2.7.2.686 [id number] [facility] 2021-05-27 15:45:58 2021-05-27 16:00:58 Director Of Enterprise Applications Visit [facility] 1.2.114 350.1.13.10 4.2.7.2.686 [id number] [facility] 2021-05-27 14:30:00 2021-05-27 15:46:54 Outpatient ALEJANDRA HARRINGTON [facility] [id number] [facility] 2021-05-27 14:30:00 2021-05-27 15:46:54 Outpatient R ALEJANDRA VARGAS [facility] [id number] [facility] 2021-05-27 14:08:09 2021-05-27 15:46:54 Office Visit Alejandra Vargas [facility] 1.84.114 350.1.13.10 4.2.7.2.686 [id number] [facility] 2021-05-22 00:00:00 2021-05-22 00:00:00 Patient Secure Msg Madrigal [facility] MEDICAL OFFICE BUILDING 1.840.114 350.1.13.10 4.2.7.2.686 [id number] [facility] 2021-05-14 16:00:00 2021-05-14 16:17:51 Outpatient R VALERIA PHILIPPE [facility] [id number] [facility] 2021-05-14 15:52:21 2021-05-14 16:17:51 Office Visit Valeria Philippe [facility] 1.840.114 350.1.13.10 4.2.7.2.686 [id number] [facility] 2021-05-14 16:00:00 2021-05-14 16:00:00 Outpatient R VALERIA PHILIPPE [facility] [id number] [facility] 2021-05-13 00:06:00 2021-05-13 01:59:00 Emergency Ev Hawkins Roxanne [facility] 1.84.114 350.1.13.10 4.2.7.2.686 [id number] [facility] 2021-05-12 16:42:59 2021-05-12 16:47:21 Director Of Enterprise Applications Visit Lab, Rosendo [facility]al [facility] Medical Office Building 1.84.114 350.1.13.10 4.2.7.2.686 [id number] [facility] 2021-05-12 15:29:32 2021-05-12 16:41:27 Office Visit Nitza Madrigal [facility] Medical Office Building 1.84.114 350.1.13.10 4.2.7.2.686 [id number] [facility] 2021-05-12 15:30:00 2021-05-12 15:30:00 Outpatient R NITZA MADRIGAL [facility] [id number] [facility] 2021-04-17 00:00:00 2021-04-17 00:00:00 Letter (Out) Serina Tan [facility] 1.84.114 350.1.13.10 4.2.7.2.686 [id number] [facility] 2021-04-16 11:21:42 2021-04-16 11:36:42 Laboratory Only Only, Ang Db Test Pop Christy J [facility] Medical Office Building 1.84.114 350.1.13.10 4.2.7.2.686 [id number] [facility] 2021-04-16 11:30:00 2021-04-16 11:30:00 Outpatient R CHRISTY ALICEA [facility] [id number] [facility] 2021-04-03 00:00:00 2021-04-03 00:00:00 Telephone [facility] Medical Office Building 1.84.114 350.1.13.10 4.2.7.2.686 [id number] [facility] 2021-03-27 13:21:12 2021-03-27 13:36:12 Office Visit [facility]ks[facility] Medical Office Building 1.840.114 350.1.13.10 4.2.7.2.686 [id number] [facility] 2021-03-27 13:30:00 2021-03-27 13:30:00 Outpatient R ALEKSANDRA GUPTA [facility] [id number] [facility] 2021-03-27 00:00:00 2021-03-27 00:00:00 Letter (Out) RichardsLarisa mora [facility] Medical Office Building 1.840.114 350.1.13.10 4.2.7.2.686 [id number] [facility] 2021-03-15 00:00:00 2021-03-15 00:00:00 Patient Secure Msg Doctor Unassigned, [place] [facility] 1.84.114 350.1.13.10 4.2.7.2.686 [id number] [facility] 2021-03-14 09:13:19 2021-03-14 09:47:46 Office Visit Larisa Richards [facility] Medical Office Building 1.840.114 350.1.13.10 4.2.7.2.686 [id number] [facility] 2021-03-14 09:30:00 2021-03-14 09:30:00 Outpatient R LARISA RICHARDS [facility] [id number] [facility] 2021-03-13 13:51:58 2021-03-13 15:05:53 Office Visit Valeria Philippe [facility] Medical Office Building 1.840.114 350.1.13.10 4.2.7.2.686 [id number] [facility] 2021-03-13 14:00:00 2021-03-13 14:00:00 Outpatient R VALERIA PHILIPPE [facility] [id number] [facility] 2021-03-12 00:00:00 2021-03-12 00:00:00 [facility] Building 1.2.840.114 350.1.13.10 4.2.7.2.686 [id number] [facility] 2021-03-10 15:07:49 2021-03-10 23:59:00 Outpatient R GENEVA MADRIGALTHIA [facility] [id number] [facility] 2021-03-10 14:30:00 2021-03-10 14:30:00 [facility] [id number] [facility] 2021-02-20 12:08:12 2021-02-20 13:23:48 Office Visit Valeria Philippe [facility] Office Building One 1..840.114 350.1.13.10 4.2.7.2.686 [id number] [facility] 2021-02-20 12:30:00 2021-02-20 12:30:00 Outpatient R VALERIA PHILIPPE [facility] [id number] [facility] 2021-02-03 10:00:00 2021-02-03 10:00:00 Outpatient R JENIFER MACDONALD [facility] [id number] [facility] 2020-12-11 00:00:00 2020-12-11 00:00:00 Robin Newton [facility] 1.2.840.114 350.1.13.10 4.2.7.2.686 [id number] [facility] 2020-12-09 11:29:46 2020-12-09 11:44:46 Director Of Enterprise Applications Visit [facility] 1.840.114 350.1.13.10 4.2.7.2.686 [id number] [facility] 2020-12-09 10:00:00 2020-12-09 11:25:43 Outpatient R RENAE [facility] [id number] [facility] 2020-12-09 09:36:42 2020-12-09 11:25:43 Office Visit [facility] 1.840.114 350.1.13.10 4.2.7.2.686 [id number] [facility] 2020-12-09 10:00:00 2020-12-09 10:00:00 Outpatient R RENAE [facility] [id number] [facility] 2020-11-28 10:30:00 2020-11-28 10:30:00 Outpatient R JUDITH KHOURY [facility] [id number] [facility] 2020-11-27 09:00:00 2020-11-27 09:00:00 Outpatient KERRI SIMON [facility] [id number] [facility] 2020-11-13 00:00:00 2020-11-13 00:00:00 Outpatient JUDITH BEAUCHAMP [facility] [id number] [facility] 2020-10-31 00:00:00 2020-10-31 00:00:00 Case Management [facility] Office Building One 1..840.114 350.1.13.10 4.2.7.2.686 [id number] [facility] 2020-10-30 00:00:00 2020-10-30 00:00:00 Patient Secure Msg Doctor Unassigned, [place] [facility] 1.2840.114 350.1.13.10 4.2.7.2.686 [id number] [facility] 2020-10-30 00:00:00 2020-10-30 00:00:00 Patient Secure Msg Doctor Unassigned, [place] [facility] 1.2840.114 350.1.13.10 4.2.7.2.686 [id number] [facility] 2020-10-29 08:15:59 2020-10-29 08:35:59 Director Of Enterprise Applications Visit Pob, Adc Lab Main Valeria Philippe [facility] Building 1..840.114 350.1.13.10 4.2.7.2.686 [id number] [facility] 2020-10-29 08:00:00 2020-10-29 08:00:00 Outpatient R VALERIA PHILIPPE [facility] [id number] [facility] 2020-10-26 16:10:00 2020-10-26 16:10:00 Outpatient [facility] [id number] [facility] 2020-10-25 13:06:45 2020-10-25 14:06:38 Office Visit Judith Khoury [facility] Office Building One ..840.114 350.1.13.10 4.2.7.2.686 [id number] [facility] 2020-10-25 13:15:00 2020-10-25 13:15:00 Outpatient R JUDITH KHOURY [facility] [id number] [facility] 2020-10-05 16:10:00 2020-10-05 16:10:00 Outpatient [facility] [id number] [facility] 2020-10-03 00:00:00 2020-10-03 00:00:00 Patient Outreach Refugio Paiz [facility] 1..114 350.1.13.10 4.2.7.2.686 [id number] [facility] 2020-06-24 13:35:47 2020-06-24 23:59:00 Hospital Encounter Judith Khoury [facility] 1..114 350.1.13.10 4.2.7.2.686 [id number] [facility] 2020-06-24 13:35:47 2020-06-24 23:59:00 Outpatient R JUDITH KHOURY [facility] [id number] [facility] 2020-06-20 00:00:00 2020-06-20 00:00:00 [facility] 1.114 350.1.13.10 4.2.7.2.686 [id number] [facility] 2020-06-19 00:00:00 2020-06-19 00:00:00 Outpatient R ELISE RITCHIE [facility] [id number] [facility] 2020-06-19 00:00:00 2020-06-19 00:00:00 Orders Only Doctor Unassigned, [place] [facility] 1..114 350.1.13.10 4.2.7.2.686 [id number] [facility] 2020-06-17 15:32:02 2020-06-17 15:47:02 Laboratory Only Only, Adc Test Britton Costello [facility] 1.114 350.1.13.10 4.2.7.2.686 [id number] [facility] 2020-06-17 15:45:00 2020-06-17 15:45:00 Outpatient R [facility] [id number] [facility] 2020-06-12 00:00:00 2020-06-12 00:00:00 Case Management Judith Khoury [facility] Office Building One 1..114 350.1.13.10 4.2.7.2.686 [id number] [facility] 2020-06-04 00:00:00 2020-06-04 00:00:00 Telephone Judith Khoury [facility] Office Building One 1..114 350.1.13.10 4.2.7.2.686 [id number] [facility] 2020-05-31 10:22:28 2020-05-31 11:58:37 Office Visit Elise Ritchie [facility] Building 1..114 350.1.13.10 4.2.7.2.686 [id number] [facility] 2020-05-31 10:40:00 2020-05-31 10:40:00 [facility] [id number] [facility] 2020-05-30 12:28:58 2020-05-30 12:43:58 Director Of Enterprise Applications Visit Beatriz, Martin Lab Main Judith Khoury [facility] Building 1.114 350.1.13.10 4.2.7.2.686 [id number] [facility] 2020-05-30 11:26:34 2020-05-30 12:14:19 Office Visit Judith Khoury [facility] Office Building One 1..114 350.1.13.10 4.2.7.2.686 [id number] [facility] 2020-05-30 11:27:48 2020-05-30 11:47:48 Director Of [employer] Applications Visit Lab, Adc Fam Pob I Judith Khoury [facility] Office Building One 1.2.840.114 350.1.13.10 4.2.7.2.686 [id number] [facility] 2020-05-30 11:30:00 2020-05-30 11:30:00 Outpatient R JUDITH KHOURY [facility] [id number] [facility] 2020-05-30 00:00:00 2020-05-30 00:00:00 Orders Only Doctor Unassigned, [place] [facility] 1.2840.114 350.1.13.10 4.2.7.2.686 [id number] [facility] 2020-05-30 00:00:00 2020-05-30 00:00:00 Telephone Judith Khoury Bull [facility] Office Building One 1.0.114 350.1.13.10 4.2.7.2.686 [id number] [facility] 2020-02-02 00:00:00 2020-02-02 00:00:00 [facility] 1.840.114 350.1.13.10 4.2.7.2.686 [id number] 2020-02-02 00:00:00 2020-02-02 00:00:00 Telephone [place] [facility] 1.840.114 350.1.13.10 4.2.7.2.686 [id number] [facility] 2020-02-01 12:53:49 2020-02-01 15:29:04 Laboratory Only Lab, Adc Fam Pob I [facility] Office Building One 1.840.114 350.1.13.10 4.2.7.2.686 [id number] 2020-02-01 12:53:49 2020-02-01 15:29:04 Laboratory Only Lab, Adc Fam Pob [facility] 1.840.114 350.1.13.10 4.2.7.2.686 [id number] [facility] 2020-02-01 13:40:00 2020-02-01 13:40:00 Outpatient Oren OGNOEL Pisano [facility] [id number] [facility] 2020-02-01 00:00:00 2020-02-01 00:00:00 Letter (Out) Lab, [facility] Building One 1.840.114 350.1.13.10 4.2.7.2.686 [id number] [facility] 2020-02-01 00:00:00 2020-02-01 00:00:00 Letter (Out) Lab, [facility] Office Building One 1.840.114 350.1.13.10 4.2.7.2.686 [id number] [facility] 2020-01-28 09:24:35 2020-01-28 09:39:01 Laboratory Only Lab, [facility] Fam Beatriz [place] Cornejothia [facility] Office Building One 1.840.114 350.1.13.10 4.2.7.2.686 [id number] [facility] 2020-01-28 08:40:00 2020-01-28 08:40:00 Outpatient O GENEVA MADRIGALTHIA [facility] [id number] [facility] 2020-01-17 09:00:00 2020-01-17 09:00:00 Outpatient ROBIN SANTAMARIA [facility] [id number] [facility] 2019-11-17 09:45:00 2019-11-17 09:45:00 Outpatient ROBIN SANTAMARIA [facility] [id number] [facility] 2019-11-17 08:15:11 2019-11-17 08:30:11 Telemedici ne Visit Robin Burgess [facility] Building 1.2.840.114 350.1.13.10 4.2.7.2.686 [id number] [facility] 2019-03-31 15:04:14 2019-03-31 16:28:52 Office Visit Judith Khoury [facility] Office Building One 1.2.840.114 350.1.13.10 4.2.7.2.686 [id number] [facility] 2019-03-24 00:00:00 2019-03-24 00:00:00 Telephone Judith Khoury [facility] Office Building One 1.2.840.114 350.1.13.10 4.2.7.2.686 [id number] [facility] 2019-03-15 00:00:00 2019-03-15 00:00:00 Telephone Judith Khoury [facility] Office Building One 1.2.840.114 350.1.13.10 4.2.7.2.686 [id number] [facility] 2019-03-14 15:30:00 2019-03-14 23:59:00 Hospital Encounter Judith Khoury [facility] 1.2.840.114 350.1.13.10 4.2.7.2.686 [id number] [facility] 2019-03-14 14:47:21 2019-03-14 15:20:36 Office Visit Judith Khoury [facility] Office Building One 1.2.840.114 350.1.13.10 4.2.7.2.686 [id number] [facility] 2019-03-14 00:00:00 2019-03-14 00:00:00 Orders Only Doctor Unassigned, [place] [facility] 1.2.840.114 350.1.13.10 4.2.7.2.686 [id number] [facility] 2018-01-25 07:47:00 2018-01-25 08:53:00 Emergency X VINCE ODOM [facility] ERT [id number] [facility] Results Test Description Test Time Test Comments Results Resul t Comments Source MR LUMBAR SPINE WO CONTRAST 2024-01-17 6 16:41:29 MR LUMBAR SPINE WO CONTRAST HISTORY: Male 43 years Low back pain, symptoms persist with > 6 wkstreatment COMPARISON: MRI lumbar spine dated 12/31/2021 TECHNIQUE: Multiplanar multi weighted imaging of the lumbar spine wasobtained without IV contrast FINDINGS: The vertebral bodies are normal in height and in normal alignment. Theconus terminates at the level L1-L2. The cauda equina nerve roots areunremarkable. The background marrow signal is unremarkable. Slight disc desiccation atL4-L5 and L5-S1 is associated with minimal disc height loss, unchanged. L1-L2: No significant spinal canal stenosis or neural foraminal narrowing L2-L3: No significant spinal canal stenosis or neural foraminal narrowing L3-L4: Mild facet arthropathy results in no significant spinal canalstenosis or neural foraminal narrowing L4-L5: No significant spinal canal stenosis or neural foraminal narrowing L5-S1: A shallow posterior disc bulge results in no significant spinalcanal stenosis or neural foraminal narrowing. An annular fissure is againnoted at this level. [facility] (BINAX NOW)2024-01-19 14:58:00* Test Item Value Reference Range Interpretation Comme nts POCT SARS-COV-2 ANTIGEN (test code = 88635-4) Not Detected Not Detected, See Comment On board controls acceptable with C Line (test code = 3574) Yes ANTONIO (test code = ANTONIO) accurate developme nt and interpretation of all internal controls Lab Interpretation (test code = 53544-6) Normal [facility]2023-[facility]-08 01:03:48* Test Item Value Reference Range Interpretation Comme nts Height (test code = 5301308509) 69 in Weight (test code = 9126284865) 266 lbs Systolic BP (test code = 2525616711) 128 mmHg Diastolic BP (test code = 9083017088) 85 mmHg Heart Rate (test code = 2398396365) 81 bpm BSA (test code = 1383927064) 2.33 m2 LVIDD (test code = 0478908059) 5.30 cm Left Ventricular End Diastolic Volume by Teichholz Method (test code = 7066367) 137.1 mL IVS (test code = 6150869130) 1.20 cm Interventricular Septum Diastolic Thickness by 2D (test code = 3347369) 1.20 cm LVPWD (test code = 1429453279) 1.01 cm PW (test code = 8161983942) 1.01 cm 0.6-1.1 EF(Teich) (test code = 0057403824) 58.00 % LVIDS (test code = 1105090268) 3.70 cm Left Ventricular End Systolic Volume by Teichholz Method (test code = 5991007) 57.6 mL FS (test code = 5224073973) 31 % EF - 2D (test code = 88128809) 58.00 % LVOT diameter (test code = 3497042681) 2.00 cm LVOT area (test code = 5354105366) 3.10 cm2 ACS (test code = 3847703965) 2.11 cm Ao root diam (test code = 6996943932) 3.40 cm Aortic root (test code = 7640505322) 3.4 cm Ao root annulus (test code = 7348681882) 3.4 cm LA size (test code = 3604828476) 4.1 cm E wave decelartion time (test code = 8391399398) 0.28 s MV Peak E Fadia (test code = 4299265354) 63.5 cm/s MV Peak A Fadia (test code = 5374848214) 58.3 cm/s E/A ratio (test code = 0721548469) 1.09 ratio MV Prop V (test code = 0965884629) 40.20 cm/s LVOT stroke volume (test code = 4896112697) 69.70 cm3 LVOT peak fadia (test code = 6338791892) 122.0 cm/s LVOT mn grad (test code = 0392910667) 2.8 mmHg AV LVOT peak gradient (test code = 0412835776) 6.0 mmHg LVOT peak VTI (test code = 9818082119) 22.3 cm LV V1 mean (test code = 3714213465) 77.40 cm/s Aortic valve mean velocity (test code = 9391123852) 100.6 cm/s Ao peak fadia (test code = 8090750912) 152.7 cm/s Ao VTI (test code = 0635682826) 28.7 cm AV area by cont VTI (test code = 3946468221) 2.4 cm2 AV area peak afdia (test code = 4956195309) 2.5 cm2 Ao max PG (test code = 8973516773) 9.30 mm[Hg] AV peak gradient (test code = 4794147896) 9.3 mmHg AV valve area (test code = 2020253663) 2.43 cm2 AV mean gradient (test code = 8911234089) 4.7 mmHg LAV(MOD-sp4) (test code = 1743003194) 27.10 mL Tapse (test code = 7143789370) 1.90 cm MR max PG (test code = 5198872376) 42.30 mm[Hg] MR max fadia (test code = 9751221662) 325.10 cm/s Mr max fadia (test code = 7637291050) 325.1 m/s TR Peak Fadia (test code = 2608369718) 202.8 cm/s Triscuspid Valve Regurgitation Peak Gradient (test code = 5793889319) 16.5 mmHg Radiology Study observation (narrative) (test code = 56895-2) ANTONIO (test code = ANTONIO) ?Left?Ventricle: Left ventricle size is normal. Normal wall thickness. Normal wall motion. Low normal systolic function with a visually estimated EF of 50 - 55%. There is impaired relaxation. ?Right?Ventricle: Right ventricle size is normal. Normal systolic function. ?Tricuspid?Valve: Insufficient tricuspid regurgitation jet to estimate RVSP, but probably normal. ?RA pressure is 0-5 mmHg. Left VentricleLeft ventricle size is normal. Normal wall thickness. Normal wall motion. Low normal systolic function with a visually estimated EF of 50 - 55%. There is impaired relaxation.Right VentricleRight ventricle size is normal. Normal systolic function.Left AtriumLeft atrium size is normal.Right AtriumRight atrium size is normal.IVC/SVCIVC diameter is less than or equal to 21 mm and decreases greater than 50% during inspiration; therefore the estimated right atrial pressure is normal (~0-5 mmHg).Mitral ValveMitral valve structure is normal. Trace transvalvular regurgitation.Tricusp id ValveTricuspid valve structure is normal. Trace transvalvular regurgitation. Insufficient tricuspid regurgitation jet to estimate RVSP, but probably normal. RA pressure is 0-5 mmHg.Aortic ValveTricuspid.Pulmon ic ValveNot well visualized. Trace transvalvular regurgitation.Ascendi ng AortaNormal sized aorta.PericardiumThe pericardium is normal. No pericardial effusion.Study DetailsStudy quality was adequate. A complete echocardiogram was performed using 2D, color flow Doppler and spectral Doppler. The apical, parasternal and subcostal views were obtained. 5 mL of Lumason ultrasound enhancing agent used. [facility] HospitalPOFL [id number] 21:06:56* Test Item Value Reference Range Interpretation Comme [facility] POCT Creatinine (test code = 8515259629) 0.9 mg/dL 0.6-1.3 Lab Interpretation (test cod e = 04529-0) Normal [facility] Hospital[facility]-TERMINAL [id number] 14:56:08* Test Item Value Reference Range Interpretation Comme [facility] NT-proBNP (test code = 41112-0) <=125 Lab Interpretation (test cod e = 98969-6) Normal [facility] HospitalTROPONIN [id number] 14:22:19* Test Item Value Reference Range Interpretation Comme [facility] TROPONIN I (test code = 0827677196) 0.008 ng/mL <=0.034 ANTONIO (test code = ANTONIO) Reference (Normal) [...] to patient's use of biotin. Lab Interpretation (test code = 23281-0) Normal [facility] METABOLIC PANEL (NA, K, CL, CO2, GLUCOSE, BUN, CREATININE, CA)2023-03-19 14:11:00* Test Item Value Reference Range Interpretation Comme nts NA (test code = 3897408234) 139 mmol/L 135-145 K (test code = 1421952177) 4.6 mmol/L 3.5-5.0 CL (test code = 9623240463) 106 mmol/L 98-108 CO2 TOTAL (test code = 4926609354) 26 mmol/L 23-31 AGAP (test code = 3059490472) 7 2-16 BUN (test code = 5744660945) 13 mg/dL 7-23 GLUCOSE (test code = 6427811038) 102 mg/dL 70-110 CREATININE (test code = 3712487636) 0.92 mg/dL 0.60-1.25 CALCIUM (test code = 2470642104) 9.1 mg/dL 8.6-10.6 eGFR (test code = 6430650282) 89.4 mL/min/1.73m2 ANTONIO (test code = ANTONIO) Association of [...] or urine or abnormalities in imaging tests). [facility]CTION PAN[facility] (33183) (ALB,T.PRO,BILI T,BU/BC,ALT,AST,ALK PHOS)2023-03-19 14:11:00* Test Item Value Reference Range Interpretation Comme nts TOTAL BILI (test code = 5147303333) 0.7 mg/dL 0.1-1.1 BILI UNCON (test code = 1791751761) 0.6 mg/dL 0.1-1.1 BILI CONJ (test code = 9704680190) 0.0 mg/dL 0.0-0.3 T PROTEIN (test code = 6441027660) 8.1 g/dL 6.3-8.2 ALBUMIN (test code = 8925397009) 4.3 g/dL 3.5-5.0 ALK PHOS (test code = 5120884372) 67 U/L 34-122 ALTv (test code = 1742-6) 43 U/L 5-50 AST(SGOT) (test code = 9452303549) 52 U/L 13-40 H Lab Interpretation (test cod e = 34170-9) Abnormal [facility] 14:11:00* Test Item Value Reference Range Interpretation Comme nts LIPASE (test code = 6758270282) 103 U/L 0-220 Lab Interpretation (test cod e = 97456-1) [id number] 13:57:39* Test Item Value Reference Range Interpretation Comme nts WBC (test code = 6690-2) 6.24 See_Comment [Automated Forsake] The system which generated this result transmitted reference range: 4.20 - 10.70 10*3/?L. The reference range was not used to interpret this result as normal/abnormal. RBC (test code = 789-8) 5.43 See_Comment [Automated OpenSiloa ge] The system which generated this result transmitted reference range: 4.26 - 5.52 10*6/?L. The reference range was not used to interpret this result as normal/abnormal. HGB (test code = 718-7) 16.7 g/dL 12.2-16.4 H HCT (test code = 4544-3) 47.2 % 38.4-49.3 MCV (test code = 787-2) 86.9 fL 81.7-95.6 MCH (test code = 785-6) 30.8 pg 26.1-32.7 MCHC (test code = 786-4) 35.4 g/dL 31.2-35.0 H RDW-SD (test code = 07171-7) 42.7 fL 38.5-51.6 RDW-CV (test code = 788-0) 13.4 % 12.1-15.4 PLT (test code = 777-3) 186 See_Comment [Automated OpenSiloa ge] The system which generated this result transmitted reference range: 150 - 328 10*3/?L. The reference range was not used to interpret this result as normal/abnormal. MPV (test code = 66788-7) 9.1 fL 9.8-13.0 L NRBC/100 WBC (test code = 8456739926) 0.0 See_Comment [Automated LookFlow ssage] The system which generated this result transmitted reference range: 0.0 - 10.0 /100 WBCs. The reference range was not used to interpret this result as normal/abnormal. NRBC x10^3 (test code = 0225014432) See_Comment [Automated OpenSiloa ge] The system which generated this result transmitted reference range: 10*3/?L. The reference range was not used to interpret this result as normal/abnormal. GRAN MAT (NEUT) % (test code = 770-8) 48.6 % IMM GRAN % (test code = 0039113723) 0.20 % LYMPH % (test code = 736-9) 39.6 % MONO % (test code = 5905-5) 7.7 % EOS % (test code = 713-8) 3.4 % BASO % (test code = 706-2) 0.5 % GRAN MAT x10^3(ANC) (test code = 0054596207) 3.04 10*3/uL 1.99-6.95 IMM GRAN x10^3 (test code = 7335033910) 0.00-0.06 LYMPH x10^3 (test code = 731-0) 2.47 10*3/uL 1.09-3.23 MONO x10^3 (test code = 742-7) 0.48 10*3/uL 0.36-1.02 EOS x10^3 (test code = 711-2) 0.21 10*3/uL 0.06-0.53 BASO x10^3 (test code = 704-7) 0.03 10*3/uL 0.01-0.09 Lab Interpretation (test code = 49365-5) Abnormal [facility] MOLECULAR [id number] 02:05:42* Test Item Value Reference Range Interpretation Comme nts POCT Molecular FluA (test co de = 46066-3) Negative Negative POCT Molecular FluB (test co de = 73872-8) Negative Negative Lab Interpretation (test cod e = 20457-8) Normal [facility] MOLECULAR [id number] 01:58:33* Test Item Value Reference Range Interpretation Comme nts POCT Molecular Strep (test c ode = 23824-1) Negative Negative Lab Interpretation (test cod e = 00489-5) Normal [facility] SARS-COV-2 ANTIGEN (BINAX NOW)2023-02-22 01:56:00* Test Item Value Reference Range Interpretation Comme nts POCT SARS-COV-2 ANTIGEN (test code = 73246-9) Not Detected Not Detected On board controls acceptable with C Line (test code = 3574) Yes ANTONIO (test code = ANTONIO) accurate developme nt and interpretation of all internal controls Lab Interpretation (test code = 33821-7) Normal [facility] Notes Date/Time Note Provider Source 2024-03-14 10:55:50 Martinez Roberson is a 43 year old male, received forms from [employer] [facility] [place] the forms will be placed in provider's box for fill out and re-fax . Kerri Carson [facility] 2024-03-02 13:45:00 Images from the original note were not included. Venipuncture collection performed by clean technique on the left anticubitus. Total of 1 attempts were made. Slight pressure and a bandage/dressing were applied to the site(s). The patient experienced no complications. The following specimens were processed according to instructions and sent to [facility] laboratories per lab order on 03/02/2024 : LT BLUE SST 1 RED LAV 2 PPT DK GREEN (LiHep) DK GREEN (SodH) BILL DK BLUE (K2) DK BLUE (S) ACD Blood Culture NIPT/NTD [facility] 2024-02-14 16:09:06 Forms pending receipt and review. Marie Ashby LVN [facility] 2024-02-12 18:36:22 Martinez Roberson is a 43 year old male , received fax from [employer] [facility] [facility] [place] this form is requesting more information from patients provider . The forms will be in the provider box. Kerri Carson [facility] 2024-02-09 10:15:00 Addended by: LAKESHIA COVARRUBIAS on: 02/11/2024 09:06 AM Modules accepted: Orders Lakeshia Covarrubias PT [facility] 2024-01-20 07:21:23 Images from the original note were not included. Requested Renewals Name from pharmacy: ATORVASTATIN 20 MG TABLET Will file in chart as: ATORVASTATIN 20 mg tablet Sig: TAKE 1 TABLET BY MOUTH EVERYDAY AT BEDTIME Disp: 90 tablet Refills: 1 Start: 01/20/2024 Class: eRX For: Mixed hyperlipidemia Last ordered: 8 months ago (05/12/2023) by RENEE Carr Last refill: 10/12/2023 Rx #: [id number] Cardiovascular: Antilipid - HMG-CoA Reductase Inhibitors Rxivwe4701/20/2024 12:38 AM Protocol Details AST in normal range and within 360 days ALT in normal range and within 360 days Valid encounter within last 12 months Total Cholesterol within 360 days LDL within 360 days HDL within 360 days Triglycerides within 360 days To be filled at: [facility]/pharmacy #[id number] - [place], [place] - [address] [facility] AST(SGOT) (U/L) Date Value 05/24/2023 41 (H) ALT(SGPT) (U/L) Date Value 09/16/2018 47 ALTv (U/L) Date Value 05/24/2023 51 (H) Recent Visits Date Type Provider Dept 01/06/24 Office Visit Valeria Philippe PA [facility] 12/17/23 Office Visit Remy Harp FNP [facility] 11/16/23 Office Visit Remy Harp FNP [facility] 05/24/23 Office Visit Remy Harp FNP [facility] 03/30/23 Office Visit Remy Harp FNP [facility] 03/26/23 Office Visit Remy Harp FNP [facility] 03/24/23 Office Visit Remy Harp FNP [facility] 12/15/22 Office Visit Remy Harp FNP [facility] 11/13/22 Office Visit Remy Harp FNP [facility] 10/16/22 Office Visit Remy Harp FNP [facility] Showing recent visits within past 540 days with a meds authorizing provider and meeting all other requirements Future Appointments Date Type Provider Dept 01/24/24 Appointment Remy Harp FNP [facility] Showing future appointments within next 150 days with a meds authorizing provider and meeting all other requirements [facility] 2024-01-17 09:17:28 NEXT APPT With Family Medicine (Katiuska Brown, SOCIAL MEDIA DESIGNER) 01/18/2024 at 3:30 PM [facility] 2024-01-06 07:58:35 Medical Request has been faxed to HIM. Confirmation received. Scanned and uploaded to patients chart. Felicity Rodríguez [facility] 2023-12-31 10:29:18 Please inform the patient that there is a lot to wait till Remy Katiuska is available to address it, she is currently out of office. Not sure what her return date is. Thank you FM-FAMILY MEDICINE STAFF [facility] 2023-12-30 09:41:40 Patient has been scheduled Kyra Disla [facility] 2023-12-29 11:05:13 Please schedule patient for office visit. Provider does not do telephone encounters T [facility] 2023-12-29 10:55:47 Martinez Roberson is a 43 year old male Pt calling in [facility] for sooner appt, preferably with Mrs. Remy harp to refill out paperwork for pt's job. Pt is stating he can even do a phone visit and he is going to either go up to the clinic and drop off the forms or upload them on mychart as soon as he can so we can get the forms started. Please advise. [phone] (home) Brynn Bailey [facility] 2023-12-23 07:17:35 Please review and fill if appropriate. Last Refilled: Disp Refills Start End MABLE meloxicam (MOBIC) 15 mg tablet 42 tablet 0 11/16/2023 -- No Sig: Take 1 tablet by mouth in the morning. Sent to pharmacy as: meloxicam 15 mg tablet Class: eRX Route: Oral Order: [id number] Date/Time Signed: 11/16/2023 13:53 E-Prescribing Status: Receipt confirmed by pharmacy (11/16/2023 1:53 PM CDT) Notes: office visit 12/17/23 Assessment/Plan Annular tear of lumbar disc (primary encounter diagnosis) Comment: chronic stable Plan: MR LUMBAR SPINE WO CONTRAST, gabapentin 100 mg capsule Continue PT Rto in 4-6 weeks recommend daily stretching, anti-inflammatories and icing. I recommend that he avoid heavy lifting of objects > 20lbs or any sharp/excessive bending and twisting for the next four weeks and then gradually ramp up to normal. Work with PT and plan to see me back in 4 weeks if not improving will need to see Neurosurgery DDD (degenerative disc disease), lumbar Comment: chronic stable Plan: MR LUMBAR SPINE WO CONTRAST, gabapentin 100 mg capsule recommend daily stretching, anti-inflammatories and icing. I recommend that he avoid heavy lifting of objects > 20lbs or any sharp/excessive bending and twisting for the next four weeks and then gradually ramp up to normal. Work with PT and plan to see me back in 4 weeks if not improving will need to see Neurosurgery Recent Visits Date Type Provider Dept 12/17/23 Office Visit Remy Harp FNP [facility] 11/16/23 Office Visit Remy Harp FNP [facility] 05/24/23 Office Visit Remy Harp FNP [facility] 03/30/23 Office Visit Remy Harp FNP [facility] 03/26/23 Office Visit Cotta, Remy, SOCIAL MEDIA DESIGNER [facility] 03/24/23 Office Visit Remy Harp, SOCIAL MEDIA DESIGNER [facility] 12/15/22 Office Visit Remy Harp, SOCIAL MEDIA DESIGNER [facility] 11/13/22 Office Visit Remy Harp, SOCIAL MEDIA DESIGNER [facility] 10/16/22 Office Visit Remy Harp, SOCIAL MEDIA DESIGNER [facility] 09/09/22 Office Visit Remy Harp, SOCIAL MEDIA DESIGNER [facility] Showing recent visits within past 540 days with a meds authorizing provider and meeting all other requirements Future Appointments Date Type Provider Dept 01/18/24 Appointment Remy Harp SOCIAL MEDIA DESIGNER [facility] Showing future appointments within next 150 days with a meds authorizing provider and meeting all other requirements Romana Hinojosa RN [facility] 2023-07-08 09:01:21 Left voicemail to patient to schedule follow up for back pain. N PLUMBER Fernando Chapman MA [facility] 2023-03-30 13:05:27 Formatting of this n ote might be different from the original. Called patient per Remy Harp SATELLITE DISH REPAIRER to notify if he needs additional days off he will need to request those days from [facility]. Patient has an appointment there today at 2:00pm. Patient verbalized understanding. [facility] 2023-03-26 14:00:00 Formatting of this n ote is different from the original. Images from the original note were not included. Venipuncture collection performed by clean technique on the left anticubitus. Total of 1 attempts were made. Slight pressure and a bandage/dressing were applied to the site(s). The patient experienced no complications. The following specimens were processed according to instructions and sent to [facility] laboratories per lab order on 03/26/2023 : LT BLUE SST 2 RED LAV PPT DK GREEN (LiHep) DK GREEN (SodH) BILL DK BLUE (K2) DK BLUE (S) ACD Blood Culture NIPT/NTD T [facility] 2023-03-26 09:59:53 Formatting of this n ote might be different from the original. [facility] Everywhere searched for patient records.Information reconciled into the patients chart. Oriense Message sent to patient with open care gaps. [facility] 2023-03-24 12:30:06 Formatting of this n ote is different from the original. Images from the original note were not included. Requested Renewals busPIRone 5 mg tablet Sig: Take 1 tablet by mouth in the morning and 1 tablet in the evening. Disp: 180 tablet Refills: 1 Start: 03/24/2023 Class: eRX For: Essential hypertension, Anxiety Last ordered: 11 months ago (04/24/2022) by RENEE Carr Patient comment: Need refill for bottle Provider Review Required Failed 03/24/2023 12:19 PM Protocol Details This refill cannot be delegated Valid encounter within last 12 months To be filled at: [facility]/pharmacy #[id number] - [place], [place] - [facility] [address] [facility] Recent Visits Date Type Provider Dept 12/15/22 Office Visit Remy Harp FNP [facility] 11/13/22 Office Visit Remy Harp FNP [facility] 10/16/22 Office Visit Remy Harp FNP [facility] 09/09/22 Office Visit Remy Harp FNP [facility] 08/17/22 Office Visit Remy Harp FNP [facility] 07/15/22 Office Visit Remy Harp FNP [facility] 06/15/22 Office Visit Remy Harp FNP [facility] 05/15/22 Office Visit Remy Harp FNP [facility] 04/15/22 Office Visit Remy Harp FNP [facility] 03/31/22 Office Visit Remy Harp, RENEE [facility] Showing recent visits within past 540 days with a meds authorizing provider and meeting all other requirements Today's Visits Date Type Provider Dept 03/24/23 Office Visit Remy Harp FNP [facility] Showing today's visits with a meds authorizing provider and meeting all other requirements Future Appointments Date Type Provider Dept 04/01/23 Appointment Valeria Philippe PA [facility] 06/23/23 Appointment Remy Harp RENEE [facility] Showing future appointments within next 150 days with a meds authorizing provider and meeting all other requirements [facility] 2023-03-19 10:30:50 Formatting of this n ote might be different from the original. Pt given printed and verbal discharge instructions regarding Chest pain, Noncardiac, encouraged hydration, NO Prescriptions provided Discussed ibuprofen and to take with food to avoid GI distress. Pt verbalized understanding of instructions, pt awake alert oriented, resp reg unlabored, skin w/d, color appropriate for race, moves all ext well,pt encouraged to follow up with pcp Advised to seek medical attention for new/prolonged/worsening of symptoms, No adverse reaction to meds given in ER noted upon discharge PIV d'cd, dressing to site, catheter in tact. Awake, alert oriented, resp reg unlabored, skin w/d, pt leaving amb with steady gait, in no apparent distress, [facility] 2023-03-19 07:57:16 Formatting of this n ote might be different from the original. Patient reports that he began having right sided chest pain yesterday that has gotten worse this AM with movement. Reports the pain is a "tightness" like feeling and describes it as a pulled muscle feeling. Reports that he has also been having sinus drainage and cough for a few days. Patient's son did test positive for COVID last week. Edith Shelby RN [facility] - Health 2023-03-19 07:52:00 Formatting of this n ote is different from the original. [facility] Emergency Department Note Patient Name: Martinez Roberson Date of : 1980 42 year old male Treatment Room: [facility] [id number] Primary Care Physician: Katiuska Brown Patient Escorted by: Self [9] Mode of Arrival: Personal means [1] EMS Treatment Prior to ED Arrival: Travel and Exposure Screening: Symptoms Does patient have any of these symptoms?: (not recorded) Exposure Screening Has patient had contact with [...] cough. Denies fevers, ESPINAL, dizziness, SOB, abdominal pain, vomiting, diarrhea. Nonsmoker. Son tested positive for [...] gain and weight loss. HENT: Positive for congestion and rhinorrhea. Negative for dental problem, drooling, ear discharge, ear pain, facial swelling, hearing loss, mouth sores, nosebleeds, postnasal drip, sinus pressure, sneezing, sore throat, tinnitus, trouble swallowing and voice change. Eyes: Negative for photophobia, pain, discharge, redness, itching and visual disturbance. Respiratory: Positive for cough and chest tightness. Negative for apnea, choking, shortness of breath, wheezing and stridor. Breasts: Negative for discharge, mass, pain and unequal size. Cardiovascular: Positive for chest pain. Negative for palpitations and leg swelling. Gastrointestinal: Negative for abdominal distention, abdominal pain, anal bleeding, blood in stool, constipation, diarrhea, nausea, rectal pain and vomiting. Genitourinary: Negative for bladder incontinence, dysuria, urgency, polyuria, frequency, hematuria, flank pain, decreased urine volume, discharge, penile swelling, scrotal swelling, enuresis, difficulty urinating, genital sores, penile pain, testicular pain and nocturia. Musculoskeletal: Negative for arthralgias, back pain, gait problem, joint swelling, myalgias, neck pain and neck stiffness. Skin: Negative for color change, pallor, rash and wound. Neurological: Negative for dizziness, tremors, seizures, syncope, facial asymmetry, speech difficulty, weakness, light-headedness, numbness and headaches. Psychiatric/Behavioral: Negative for agitation, behavioral problems, confusion, decreased concentration, dysphoric mood, hallucinations, self-injury, sleep disturbance and suicidal ideas. The patient is not nervous/anxious and is not hyperactive. Hematological: Negative for adenopathy, cold intolerance and heat intolerance. Does not bruise/bleed easily. Endocrine: Negative for goiter, hair loss, cold intolerance, heat intolerance, polydipsia, polyphagia, polyuria, weight gain and weight loss. Physical Exam: ED Triage Vitals Weight -- Actual or estimated -- Height -- BP 03/19/23 0856 115/74 Pulse 03/19/23 0758 64 Resp 03/19/23 0758 20 Temp 03/19/23 0758 36.4 ?C (97.5 ?F) Temp source 03/19/23 075 Oral SpO2 03/19/23757 100 % Measured on 03/19/23757 Room air Physical Exam Constitutional: General: He is not in acute distress. Appearance: Normal appearance. He is normal weight. He is not ill-appearing, toxic-appearing or diaphoretic. HENT: Head: Normocephalic and atraumatic. Right Ear: Tympanic membrane and ear canal normal. There is no impacted cerumen. Left Ear: Tympanic membrane and ear canal normal. There is no impacted cerumen. Nose: Congestion and rhinorrhea present. Mouth/Throat: Mouth: Mucous membranes are moist. Pharynx: Oropharynx is clear. No oropharyngeal exudate or posterior oropharyngeal erythema. Eyes: General: No scleral icterus. Right eye: No discharge. Left eye: No discharge. Extraocular Movements: Extraocular movements intact. Conjunctiva/sclera: Conjunctivae normal. Pupils: Pupils are equal, round, and reactive to light. Neck: Vascular: No carotid bruit. Cardiovascular: Rate and Rhythm: Normal rate and regular rhythm. Pulses: Normal pulses. Heart sounds: Normal heart sounds. No murmur heard. No friction rub. No gallop. Pulmonary: Effort: Pulmonary effort is normal. No respiratory distress. Breath sounds: Normal breath sounds. No stridor. No wheezing, rhonchi or rales. Comments: + right anterior reproducible chest pain with palpation. Chest: Chest wall: Tenderness present. Abdominal: General: Abdomen is flat. Bowel sounds are normal. There is no distension. Palpations: Abdomen is soft. There is no mass. Tenderness: There is no abdominal tenderness. There is no right CVA tenderness, left CVA tenderness, guarding or rebound. Hernia: No hernia is present. Musculoskeletal: General: No swelling, tenderness, deformity or signs of injury. Normal range of motion. Cervical back: Normal range of motion and neck supple. No rigidity or tenderness. Right lower leg: No edema. Left lower leg: No edema. Lymphadenopathy: Cervical: No cervical adenopathy. Skin: General: Skin is warm and dry. Capillary Refill: Capillary refill takes less than 2 seconds. Coloration: Skin is not jaundiced or pale. Findings: No bruising, erythema, lesion or rash. Neurological: General: No focal deficit present. Mental [...] Lungs: The lung volumes are normal. No pneumothorax or pleural effusion. No focal opacity. There is prominent peribronchial cuffing. Findings are nonspecific but concerning for respiratory tract infection. Heart/Mediastinum: The cardiomediastinal silhouette is enlarged. Bones and soft tissues: No focal osseous lesions or acute osseous findings are detected. Preliminary Report Dictated by Resident: Sandra Prescott I, Austin Espinoza MD., have reviewed this study and agree with the above report. [...] 0.01 - 0.09 10*3/uL HEPATIC FUNCTION PANEL (65355) (ALB,T.PRO,BILI T,BU/BC,ALT,AST,ALK PHOS) - Abnormal TOTAL BILI [...] SARS-CoV-2 Rapid ID NOW Not Detected Not Detected LIPASE - Normal LIPASE 103 0 - [...] GLUCOSE, BUN, CREATININE, CA) HEPATIC FUNCTION PANEL (88400) (ALB,T.PRO,BILI T,BU/BC,ALT,AST,ALK PHOS) LIPASE TROPONIN I N-TERMINAL PRO-BNP LAB ONLY COVID INTERPRETATION Orders Placed This Encounter Medications acetaminophen (TYLENOL) tablet 650 mg First Provider Eval: ED Events Date/Time Event User Comments 03/19/23 0811 Medical Screening Begins ZEB SULTANA DO -- 03/19/23 0811 First Provider Evaluation ZEB SULTANA DO -- No notes of EC Admission Criteria type on file. ED COURSE Diagnosis/Impression as of 03/19/23 1013 Other forms of angina pectoris Procedures: Procedures MDM: Medical Decision Making Patient here for right sided chest pain with cough and congestion since yesterday. Hurts more with cough. Denies fevers, ESPINAL, dizziness, SOB, abdominal pain, vomiting, diarrhea. Nonsmoker. Son tested positive for COVID last Wednesday. Amount and/or Complexity of Data Reviewed Labs: ordered. Decision-making details documented in ED Course. Details: Labs WNL's Radiology: ordered. Decision-making details documented in ED Course. Details: CXR: NAPD ECG/medicine tests: ordered and independent interpretation performed. Details: EKG: NSR 65 bpm, no acute ST-T wave changes. Discussion of management or test interpretation with external provider(s): Patient feeling better. Ok to go home. Risk OTC drugs. Flowsheet Documentation: Scoring Tools: No data recorded Dx: Chest pain, noncardiac. Pleurisy. Disposition/Condition: Discharged home. Sharif Sultana D.O. EM Physician RTI Billing ID #[id number] Sharif Sultana DO 03/19/23 1014 [facility] EMERGENCY PHYSICIAN STAFF [facility] 2023-02-17 10:37:53 Formatting of this n ote might be different from the original. A user error has taken place: encounter opened in error, closed for administrative reasons. [facility] 2023-02-16 15:04:13 Formatting of this n ote might be different from the original. Images from the original note were not included. Jackie Mckeon, Grace Rome MA; P Pulmonary Nurse Supplies Rx: nasal pillow mask, heated tubing APAP therapy pressure settings [id number] with EPR:3cmH2O and heated humidification with choice mask. DME : Aerlynn Burgessio Roberson 1980 [id number] Received CPAP supply refill request from Jackie Mckeon FNP. Last office visit 02/16/23 Follow Up visit - 02/18/24 Last DME sent - 11/24/22 RX sent to [facility] via [place] Berkley Schaefer RN [facility]
[2024-03-17] MEDS ORDERED: DIPHENHYDRAMINE 50 MG/ML VIAL ONE (14:25)
[2024-03-17] MEDS ORDERED: NA CHLORIDE 0.9% 2,000 ML ONE (14:25)
--- NOTE | 2024-03-17 14:25 | RAD REPORT ---
EXAM DESCRIPTION: CT - Head Brain Wo Cont - 03/17/2024 2:17 pm CLINICAL HISTORY: HEADACHE Headache, drowsiness COMPARISON: No comparisons TECHNIQUE: All CT scans are performed using dose optimization technique as appropriate and may inclu de automated exposure control or mA/KV adjustment according to patient size. FINDINGS: No intracranial hemorrhage, hydrocephalus or extra-axial fluid collection.No areas of brai n edema or evidence of midline shift. The paranasal sinuses and mastoids are clear. The calvarium is intact. IMPRESSION: No acute intracranial abnormality.
[2024-03-17 14:53] LABS: Absolute Basophils 0.1 K/uL (0-0.5); Absolute Eosinophils 0.2 K/uL (0-0.5); Absolute Lymphocytes (CBC) 1.9 K/uL (0.7-4.9); Absolute Monocytes 0.7 K/uL (0.1-1.3); Absolute Neutrophil 3.6 K/uL (1.8-8.0); Basophils % 0.9 % (0-1.3); Eosinophils % 2.8 % (0-4.4); Hematocrit 46.4 % (39.6-49.0); Lymphocytes % 29.3 % (15.3-44.8); MCHC 34.5 g/dL (32.0-36.0); MCV 89.9 fL (80-100); MPV 7.3 fL (7.6-11.3); Monocytes % 10.5 % (3.3-12.3); Neutrophils % 56.5 % (41.7-73.7); Nucleated Red Blood Cells % 0.1 % (0-0); Platelets 186 thou/uL (152-406); RBC Red Blood Cell Count 5.16 M/uL (4.33-5.43); Red Cell Distribution Width 14.4 % (12.1-15.2)
[2024-03-17 15:11] LABS: Anion Gap 7.8 mEq/L (5.0-15.0); Potassium 3.8 mEq/L (3.5-5.1); Troponin High Sensitivity 5.2 pg/mL (<58.9)
--- NOTE | 2024-03-17 15:37 | ER ---
Nurse's Notes [facility] Name: Sumit Roberson Age: 43 yrs Sex: Male : 1980 Arrival Date: 03/17/2024 Time: 13:24 Bed 12 Private MD: Diagnosis: Headache;Essential (primary) hypertension Presentation: 03/17 13:53 Chief complaint: Patient states: HEADACHE X 1 WEEK GOES AROUND HEAD. STATES HAS HX OF db SPINAL LEAK . FEELS SIMILAR TO PAIN HAS BEEN DOING PHYSICAL THERAPY FOR BACK. Coronavirus screen: Client denies travel out of the [place] in the last 14 days. At this time, the client does not indicate any symptoms associated with coronavirus-19. Ebola Screen: Patient negative for fever greater than or equal to 101.5 degrees Fahrenheit, and additional compatible Ebola Virus Disease symptoms Patient denies exposure to infectious person. Patient denies travel to an Ebola-affected area in the 21 days before illness onset. No symptoms or risks identified at this time. Initial Sepsis Screen: Does the patient meet any 2 criteria? No. Patient's initial sepsis screen is negative. Does the patient have a suspected source of infection? No. Patient's initial sepsis screen is negative. Risk Assessment: Do you want to hurt yourself or someone else? Patient reports no desire to harm self or others. Onset of symptoms was March 17, 2024. 13:53 Method Of Arrival: Ambulatory db 13:53 Acuity: ISABEL 3 db Triage Assessment: 13:55 Headache History: The patient has had previous headaches and this one is similar to db previous episodes. General: Appears in no apparent distress. comfortable, Behavior is calm, cooperative. Pain: Complains of pain in head Pain. Pain: Pain currently is 6 out of 10 on a pain scale. Pain began gradually, Also complains of. Neuro: Level of Consciousness is awake, alert, obeys commands. Historical: - Allergies: 13:53 No Known Allergies; db - PMHx: 13:53 fatty liver; tear lumbar disc area; High Cholesterol; db - PSHx: 13:53 spinal injection; carpal tunnel B; db - Immunization history:: Adult Immunizations unknown. - Infectious Disease History:: Denies. - Social history:: Smoking status: Patient denies any tobacco usage or history of. Screenin:10 [facility] ED Fall Risk Assessment (Adult) History of falling in the last 3 months, ar6 including since admission No falls in past 3 months (0 pts) Confusion or Disorientation No (0 pts) Intoxicated or Sedated No (0 pts) Impaired Gait No (0 pts) Mobility Assist Device Used No (0 pt) Altered Elimination No (0 pt) Score/Fall Risk Level 0 - 2 = Low Risk Oriented to surroundings, Maintained a safe environment, Educated pt \T\ family on fall prevention, incl call for assistance when getting out of bed, Hourly rounding (assess needs \T\ fall precautionary measures) done. Abuse screen: Denies threats or abuse. Denies injuries from another. Nutritional screening: No deficits noted. Tuberculosis screening: No symptoms or risk factors identified. Assessment: 14:10 General: Appears in no apparent distress. uncomfortable, Behavior is calm, cooperative, ar6 appropriate for age. Pain: Complains of pain in back of head Pain does not radiate. Pain currently is 10 out of 10 on a pain scale. Pain began x1 week ago Is continuous. Neuro: Level of Consciousness is awake, alert, obeys commands, Oriented to person, place, time, situation, Coagulating Bath Mixer are equal bilaterally Moves all extremities. Gait is steady. Cardiovascular: Capillary refill < 3 seconds. Respiratory: Airway is patent. GI: Abdomen is round non-distended. : No signs and/or symptoms were reported regarding the genitourinary system. EENT: No signs and/or symptoms were reported regarding the EENT system. Derm: Skin is intact, is healthy with good turgor, Skin is dry, Skin is pink, warm \T\ dry. Musculoskeletal: No signs and/or symptoms reported regarding the musculoskeletal system. Vital Signs: 13:53 BP 142 / 87; Pulse 84; Resp 16; Temp 98.3; Pulse Ox 96% on R/A; Weight 122.47 kg; db Height 5 ft. 9 in. ; 14:10 BP 161 / 90; Pulse 79; Resp 18; Temp 98.6; Pulse Ox 97% on R/A; Pain 10/10; ar6 15:04 BP 138 / 70; Pulse 77; Resp 18; Pulse Ox 99% on R/A; ar6 15:51 BP 136 / 76; Pulse 72; Resp 18; Pulse Ox 100% on R/A; ar6 13:53 Body Mass Index 39.87 (122.47 kg, 175.26 cm) db 14:10 Pain Scale: Adult ar6 ED Course: 13:26 Patient arrived in ED. mg5 13:27 Deejay Roman MD is Attending Physician. ec2 13:53 Triage completed. db 13:55 Arm band placed on Patient placed in an exam room. db 14:06 Kat Lr, RN is Primary Nurse. ar6 14:10 No apparent distress. ar6 14:10 Patient has correct armband on for positive identification. Placed in gown. Bed in low ar6 position. Call light in reach. Side rails up X 1. Provided Education on: medications. Client placed on continuous cardiac and pulse oximetry monitoring. NIBP monitoring applied. Door closed. Noise minimized. Lights dimmed. Warm blanket given. Pillow given. Head of bed. 14:19 CT Head Brain wo Cont In Process Unspecified. EDMS 14:46 Basic Metabolic Panel Sent. ar6 14:46 CBC with Diff Sent. ar6 14:46 Troponin HS Sent. ar6 15:50 No provider procedures requiring assistance completed. IV discontinued, intact, ar6 bleeding controlled, No redness/swelling at site. Pressure dressing applied. Administered Medications: 14:40 Drug: NS 0.9% IV 1000 ml IV at 1 bolus Per protocol; 1000 mL bolus Route: IV; Rate: 1 ar6 bolus; Site: left antecubital; 15:50 Follow up: Response: No adverse reaction; IV Status: Completed infusion; IV Intake: ar6 1000ml 14:40 Drug: NS 0.9% IV 1000 ml IV at 1 bolus Per protocol; 1000 mL bolus Route: IV; Rate: 1 ar6 bolus; Site: left antecubital; 15:50 Follow up: Response: No adverse reaction; IV Status: Completed infusion; IV Intake: ar6 1000ml 14:40 Drug: Droperidol IVP 2.5 mg IVP once Route: IVP; Site: left antecubital; ar6 15:49 Follow up: Response: No adverse reaction ar6 14:40 Drug: diphenhydrAMINE IVP 25 mg IVP once Route: IVP; Site: left antecubital; ar6 15:49 Follow up: Response: No adverse reaction ar6 Medication: 15:51 VIS not applicable for this client. ar6 Intake: 15:50 IV: 1000ml; Total: 1000ml. ar6 15:50 IV: 1000ml; Total: 2000ml. ar6 Outcome: 15:37 Discharge ordered by . ec2 15:50 Discharged to home ambulatory, ar6 15:50 Condition: good 15:50 Discharge instructions given to patient, Instructed on discharge instructions, follow up and referral plans. medication usage, Demonstrated understanding of instructions, follow-up care, medications, Prescriptions given X 1, 15:52 Patient left the ED. ar6 Signatures: Dispatcher [employer] Emily Patterson RN RN db Rachna Soto mg5 Deejay Roman MD MD ec2 Kat Lr RN RN ar6 Corrections: (The following items were deleted from the chart) 13:54 13:53 Allergies: Morphine; db db 13:55 13:53 Chief complaint: Patient states: HEADACHE X 1 WEEK GOES AROUND HEAD. db db
--- NOTE | 2024-03-17 15:37 | EDPHYS ---
Physician Documentation [facility] Name: Sumit Roberson Age: 43 yrs Sex: Male : 1980 Arrival Date: 03/17/2024 Time: 13:24 Bed 12 Private MD: ED Physician Deejay Roman HPI: 03/17 14:26 This 43 yrs old Male presents to ER via Ambulatory with complaints of ec2 Headache, Blurred Vision. 14:26 Patient arrives today for 1 week of bitemporal headache with associated blurred vision. ec2 Patient reports that the pain improves with Tylenol. States that he has been having outpatient physical therapy for his low back and thinks he may have strained his neck. No falls injuries or trauma.. Historical: - Allergies: 13:53 No Known Allergies; db - PMHx: 13:53 fatty liver; tear lumbar disc area; High Cholesterol; db - PSHx: 13:53 spinal injection; carpal tunnel B; db - Immunization history:: Adult Immunizations unknown. - Infectious Disease History:: Denies. - Social history:: Smoking status: Patient denies any tobacco usage or history of. ROS: 14:26 Constitutional: as per hpi ec2 Exam: 14:26 Constitutional: GEN: NAD Head: atraumatic Eyes: EOMI Ears: External ears are ec2 normal. CV: regular rate LUNGS: no respiratory distress ABD: non-distended SKIN: no evidence of rashes MSK: no evidence of trauma. Neuro: Cranial nerves II through XII intact, strength intact all 4 extremities, sensation intact throughout. Vital Signs: 13:53 BP 142 / 87; Pulse 84; Resp 16; Temp 98.3; Pulse Ox 96% on R/A; Weight 122.47 kg; db Height 5 ft. 9 in. ; 14:10 BP 161 / 90; Pulse 79; Resp 18; Temp 98.6; Pulse Ox 97% on R/A; Pain 10/10; ar6 15:04 BP 138 / 70; Pulse 77; Resp 18; Pulse Ox 99% on R/A; ar6 15:51 BP 136 / 76; Pulse 72; Resp 18; Pulse Ox 100% on R/A; ar6 13:53 Body Mass Index 39.87 (122.47 kg, 175.26 cm) db 14:10 Pain Scale: Adult ar6 MDM: 13:53 Patient medically screened. ec2 14:26 Data reviewed: vital signs. ED course: Patient arrives today for evaluation of ec2 headache. Examination remarkable for well-appearing nontoxic individuals otherwise in no acute distress with a reassuring neurologic examination. Will obtain lab work, CT imaging. Differential includes nonspecific headache syndrome, intracranial mass, doubt brain bleed. Evaluating for electrolyte disturbances as well. . 14:27 ED course: CT scan of the head on my interpretation shows no acute intracranial ec2 abnormality.. 15:03 ED course: EKG independently reviewed and interpreted by me, shows normal sinus rhythm, ec2 rate of 78, no acute ST segment elevations, intervals are nonconcerning.. 15:33 ED course: Metabolic profile reassuring. CBC reassuring. Troponin within normal ranges. ec2 . 15:36 ED course: On reassessment patient with marked improvement in his headache, improvement ec2 with his blood pressure as well. Will discharge home, suspect headache syndrome. Return precautions given.. 03/17 13:57 Order name: Basic Metabolic Panel; Complete Time: 15:33 ec2 03/17 13:57 Order name: CBC with Diff; Complete Time: 15:33 ec2 03/17 13:57 Order name: Troponin HS; Complete Time: 15:33 ec2 03/17 13:57 Order name: CT Head Brain wo Cont; Complete Time: 14:27 ec2 03/17 13:57 Order name: EKG; Complete Time: 13:57 ec2 03/17 13:57 Order name: Cardiac monitoring; Complete Time: 14:12 ec2 03/17 13:57 Order name: EKG - Nurse/Tech; Complete Time: 15:04 ec2 03/17 13:57 Order name: IV Saline Lock; Complete Time: 14:46 ec2 03/17 13:57 Order name: Labs collected and sent; Complete Time: 14:46 ec2 03/17 13:57 Order name: O2 Per Protocol; Complete Time: 14:13 ec2 03/17 13:57 Order name: O2 Sat Monitoring; Complete Time: 14:13 ec2 Administered Medications: 14:40 Drug: NS 0.9% IV 1000 ml IV at 1 bolus Per protocol; 1000 mL bolus Route: IV; Rate: 1 ar6 bolus; Site: left antecubital; 15:50 Follow up: Response: No adverse reaction; IV Status: Completed infusion; IV Intake: ar6 1000ml 14:40 Drug: NS 0.9% IV 1000 ml IV at 1 bolus Per protocol; 1000 mL bolus Route: IV; Rate: 1 ar6 bolus; Site: left antecubital; 15:50 Follow up: Response: No adverse reaction; IV Status: Completed infusion; IV Intake: ar6 1000ml 14:40 Drug: Droperidol IVP 2.5 mg IVP once Route: IVP; Site: left antecubital; ar6 15:49 Follow up: Response: No adverse reaction ar6 14:40 Drug: diphenhydrAMINE IVP 25 mg IVP once Route: IVP; Site: left antecubital; ar6 15:49 Follow up: Response: No adverse reaction ar6 Disposition Summary: 03/17/24 15:37 Discharge Ordered Notes: Location: Home ec2 Condition: Stable ec2 Diagnosis - Headache ec2 - Essential (primary) hypertension ec2 Followup: ec2 - With: Private Physician - When: - Reason: Re-evaluation by your physician Discharge Instructions: - Discharge Summary Sheet ec2 - General Headache Without Cause ec2 Forms: - Medication Reconciliation Form ec2 - Antibiotic Education ec2 - Prescription Opioid Use ec2 - Patient Portal Instructions ec2 - Leadership Thank You Letter ec2 Prescriptions: - Compazine 10 mg Oral Tablet - take 1 tablet ORAL route every 8 hours As needed; 20 tablet; Refills: 0, ec2 Product Selection Permitted Signatures: Dispatcher [employer] Emily Patterson RN RN db Deejay Roman MD MD ec2 Kat Lr RN RN ar6 Corrections: (The following items were deleted from the chart) 13:54 13:53 Allergies: Morphine; db db
[2024-03-17 15:58] VITALS: TEMP 98.6
[2024-03-17 16:00] VITALS: BP 136/76; O2SAT 100
--- NOTE | 2024-03-21 12:50 | EKG ---
Test Date: 2024-03-17 Test Time: 14:58:09 Pit Inspector: GILL MEASUREMENT RESULTS: Intervals: Rate: 0 [place]: QRSD: 0 QT: 0 QTc: 0 [place]: P: FL: QRS: 0 T: 0 INTERPRETIVE STATEMENTS: No QRS complexes found, no ECG analysis possible Compared to ECG 03/23/2023 10:10:24 Sinus rhythm no longer present Electronically Signed On 03-21-24 12:42:54 CDT by Morgan Wooten
--- NOTE | 2024-03-21 12:50 | EKG ---
Test Date: 2024-03-17 Test Time: 15:01:53 [employer] Parts Attendant: GILL MEASUREMENT RESULTS: Intervals: Rate: 78 MT: 162 QRSD: 90 QT: 408 QTc: 465 [place]: P: 50 MT: 162 QRS: 56 T: 37 INTERPRETIVE STATEMENTS: Normal sinus rhythm Normal ECG Compared to ECG 03/17/2024 14:58:09 No significant changes Electronically Signed On 03-21-24 12:42:50 CDT by Morgan Wooten
== END 2024-03-17 15:52 | disposition home or self-care (01) ==
LOC: ER 13:24
DX: R51.9 Headache, unspecified (principal); I10 Essential (primary) hypertension; E78.00 Pure hypercholesterolemia, unspecified
CPT/HCPCS: 96361; 93005 ×2; 85025; 80048; 36415; 84484; 70450; 96375; 96374; 99284; J1200; J7030

== ENCOUNTER 2025-03-08 12:18 | Emergency (ER) | payer OTHER ==
--- OUTSIDE RECORDS SUMMARY | 2025-03-08 12:38 | XMS REPORT | Continuity of Care Document ---
Author Name Unknown Address [address] [facility] [place] [address] [facility] Address [address] [facility] [place] [address] Care Team Providers Care Maintenance Assistant Name Role Phone REMY HARP Primary Care Physician Unavailab REMY Craft Attending Clinician Unavailable Doctor Unassigned, Opal Attending Clinician U Remy Hobson Attending Clinician [phone] Lab, Ang - Db Attending Clinician Unavailable BRITTON YANEZ Attending Clinician Unavailmelissa Covarrubias PT, Lakeshia Attending Clinician UnavailLarisa Lay MD Attending Clinician [phone] LARISA RICHARDS Attending Clinician UnavailLARISA Lay Attending Clinician UnavailValeria Montes Attending Clinician [phone] VALERIA PHILIPPE Attending Clinician Unavailable Kaykay Merrill PTA Attending Clinician Unavail able ALAINA CHAPIN Attending Clinician Unavailable STEVE WILKES Attending Clinician Unavail able STEVE WILKES Attending Clinician Unavail able Alaina Johnson Attending Clinician [phone] Renny Merrill PTA Attending Clinician Unavaila ble Unknown, Attending Attending Clinician UnavailJACKIE Espino Attending Clinician UnavailJACKIE Koenig Attending Clinician UnavailKAI Royal Attending Clinician Unavailable Kai Davidson MD Attending Clinician [phone] [place] TELEPHONE SERVICES SALES REPRESENTATIVE, Remy Attending Clinician [phone] Doctor Unassigned, Opal Attending Clinician U sylvia Merrill BOAT DOCK OPERATOR, Renny Dukes Attending Clinician Unavaila ryan Richards MD, Larisa Munoz Attending Clinician [phone] Garfield BLACKWOOD, Kaykay Torres Attending Clinician Unavail able AURELIO MCDONALD Attending Clinician Unavailable Mcdonald TELEPHONE SERVICES SALES REPRESENTATIVE, Aurelio Attending Clinician [phone] Unknown, Attending Attending Clinician Unavailab Valeria Ramey Attending Clinician [phone] Daisy PT, Lakeshia Attending Clinician Unavailmelissa Pruitt TELEPHONE SERVICES SALES REPRESENTATIVE, Noel Attending Clinician [phone] NOEL PRUITT Attending Clinician Unavailable Yajaira BILLS, Britton Sharp Attending Clinician [phone] Chau BILLS, Elise Attending Clinician [phone] ELISE RITCHIE Attending Clinician Unavailable Lab, Ang - Db Attending Clinician Unavailable Sandra Taylor MA L Attending Clinician Unavailab SHARIF Yuen Attending Clinician Unavailable SHARIF SULTANA Attending Clinician Unavailable RdSharif paris DO Attending Clinician [phone] Bartolo DURAN, Enid Attending Clinician [phone] ENID MCFARLAND Attending Clinician Unavailable Aurelio Abarca PTA Attending Clinician Unavail able Sydni BLACKWOOD, Sarah Gottlieb Attending Clinician Unav [facility] Attending Clinician Unavaila Alireza Troy MD Attending Clinician + [phone] ALIREZA SHIPMAN Attending Clinician Unavaila ALIREZA Troy Attending Clinician Unavaila ryan Casarez PT, Charity Attending Clinician Un available Kelvin Macdonald Attending Clinician [phone] Lety BILLS, Kai Attending Clinician [phone] Nito BILLS, Joselito Attending Clinician [phone] Abdulaziz BILLS, Dhara Attending Clinician [phone] DHARA CINTRON Attending Clinician Unavailable John PT, Lindy Velasco Attending Clinician Unavail able Hill Santos Attending Clinician [phone] HILL BEDOLLA Attending Clinician UnavailREFUGIO Jackson Attending Clinician Unavail able Only, Ang Db Test Attending Clinician UnavailHI Canseco Attending Clinician Unavaila ryan Huiunmaria eugenia TELEPHONE SERVICES SALES REPRESENTATIVE, Hi Dukes Attending Clinician [phone] Alejandra Vargas MD Attending Clinician + [phone] [facility] Attending Clinician Unavailable ALEJANDRA VARGAS Attending Clinician Fady DURAN, Nitza Attending Clinician [phone] Ross BILLS, Ev Champagne Attending Clinician [phone] NITZA MADRIGAL Attending Clinician Unavailable Serina Tan RN Attending Clinician Unavailab maria eugenia DURAN, Christy Sharp Attending Clinician + [phone] CHRISTY ALICEA Attending Clinician Unavailab Judith Sawant MD Attending Clinician [phone] Aleksandra Velez Attending Clinician [phone] ALEKSANDRA GUPTA Attending Clinician Unavailable JENIFER MACDONALD Attending Clinician UnavailRobin Anaya MD Attending Clinician [phone] [facility] Attending Clinician Unavailable Jenifer Gerber Attending Clinician [phone] JUDITH KHOURY Attending Clinician UnavailALEXIA Arreguin Attending Clinician Unavailable Pob, Adc Lab Main Attending Clinician UnavailRefugio Jackson DO Attending Clinician [phone] Only, Adc Test Attending Clinician Unavailable Britton Costello MD Attending Clinician [phone] Lab, Adc Fam Pob I Attending Clinician Unavailab maria eugenia Thrasher, Samia Padilla Attending Clinician Unavailable ROBIN BURGESS Attending Clinician VINCE Krishnamurthy Attending Clinician Unavailable REMY HARP Admitting Clinician Unavailable ELISE RITCHIE Admitting Clinician Unavailable SHARIF SULTANA Admitting Clinician Unavailable IBIKUNLE, FOLUSHO F Admitting Clinician UnavailJUDITH Burgess Admitting Clinician UnavailVINCE Puri Admitting Clinician Unavailable Payers Payer Name Policy Type Policy Number Effective Date Expirati on Date Source [facility] [id number] 2016 00:00:00 Problems Condition Name Condition Details Condition Category Status Onset Date Resolution Date Last Treatment Date Treating Clinician Comments Source Right upper quadrant pain Right upper quadrant pain Disease Active 4- 00:00: 00 [facility] Chronic pain of right ankle Chronic pain of right ankle Disease Active 4- 00:00: 00 [facility] BMI 40.0-44.9, adult BMI 40.0-44.9, adult Disease Active 2023-07 2- 00:00: 00 [facility] Degenerati on of interverte bral disc of lumbar region with discogenic back pain Degenerati on of interverte bral disc of lumbar region with discogenic back pain Disease Active 2023-07 0-09 00:00: 00 [facility] Episodic tension-ty pe headache, not intractabl e Episodic tension-ty pe headache, not intractabl e Disease Active 03-24 00:00: 00 [facility] Upper respirator y tract infection, unspecifie d type Upper respirator y tract infection, unspecifie d type Disease Active 7-15 00:00: 00 [facility] Obesity (BMI 30-39.9) Obesity (BMI 30-39.9) Disease Active 2022-07 0-23 00:00: 00 [facility] Pharyngiti s, acute Pharyngiti s, acute Disease Active 03-26 00:00: 00 [facility] Panic disorder without agoraphobi a Panic disorder without agoraphobi a Disease Active 03-26 00:00: 00 [facility] Arthralgia of knee Arthralgia of knee Disease Active 03-26 00:00: 00 Overview: Formattin g of this note might be different from the original. recurrent pain and locking right knee since [employer]. [facility] Allergic rhinitis Allergic rhinitis Disease Active 9-08 00:00: 00 [facility] Abnormal liver function Abnormal liver function Disease Active 9- 00:00: 00 [facility] Chest pain, unspecifie d type Chest pain, unspecifie d type Disease Active 9-06 00:00: 00 [facility] Obstructiv e sleep apnea syndrome Obstructiv e sleep apnea syndrome Disease Active 3-31 00:00: 00 [facility] Allergy, initial encounter Allergy, initial encounter Disease Active 2021-07 2-28 00:00: 00 [facility] Essential hypertensi on Essential hypertensi on Disease Active 9- 00:00: 00 [facility] Health examinatio n of defined subpopulat ion Health examinatio n of defined subpopulat ion Disease Active 8- 00:00: 00 [facility] Elevated blood pressure reading in office without diagnosis of hypertensi on Elevated blood pressure reading in office without diagnosis of hypertensi on Disease Active 8- 00:00: 00 [facility] Acute bilateral low back pain without sciatica Acute bilateral low back pain without sciatica Disease Active 5- 00:00: 00 [facility] Weakness of both hips Weakness of both hips Disease Active 5-02 00:00: 00 [facility] 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 Disease Active 5-02 00:00: 00 [facility] Weakness of both hips Weakness of both hips Disease Active 5-02 00:00: 00 [facility] Acute left-sided low back pain with left-sided sciatica Acute left-sided low back pain with left-sided sciatica Disease Active -12 00:00: 00 [facility] Mixed hyperlipid emia Mixed hyperlipid emia Disease Active 4-12 00:00: 00 [facility] Fatty liver Fatty liver Disease Active 2019-07 2-10 00:00: 00 [facility] Vitamin D deficiency Vitamin D deficiency Disease Active 2019-07 1-25 00:00: 00 [facility] Annular tear of lumbar disc Annular tear of lumbar disc Disease Active 04-02 00:00: 00 [facility] Left thigh pain Left thigh pain Disease Active 04-02 00:00: 00 [facility] DDD (degenerat sarika disc disease), lumbar DDD (degenerat sarika disc disease), lumbar Disease Active 04-02 00:00: 00 [facility] 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 Disease Active 04-02 00:00: 00 [facility] Myofascial pain Myofascial pain Disease Active 11-23 00:00: 00 [facility] Cervical spondylosi s with radiculopa thy Cervical spondylosi s with radiculopa thy Disease Active 11-23 00:00: 00 [facility] Elevated hemoglobin Elevated hemoglobin Disease Active 09-25 00:00: 00 [facility] Crushing injury of finger Crushing injury of finger Disease Active 02-11 00:00: 00 [facility] Varicocele Varicocele Disease Active 11-30 00:00: 00 [facility] Depression Depression Disease Active 11-11 00:00: 00 [facility] Obesity (BMI 30-39.9) Obesity (BMI 30-39.9) Disease Active 11-21 00:00: 00 [facility] Hepatosple nomegaly Hepatosple nomegaly Disease Active 11-09 00:00: 00 [facility] Abnormal LFTs Abnormal LFTs Disease Active 11-09 00:00: 00 [facility] Anxiety disorder Anxiety disorder Disease Active 11-06 00:00: 00 [facility] Hyperchole sterolemia Hyperchole sterolemia Disease Active 11-06 00:00: 00 [facility] Anxiety Anxiety Disease Active 07-19 00:00: 00 [facility] Obesity Obesity Disease Active 07-19 00:00: 00 [facility] Hyperlipid emia Hyperlipid emia Disease Active 07-19 00:00: 00 [facility] Perineal pain in male Perineal pain in male Disease Resolve d 11-11 00:00: 00 2019-04-02 00:00:00 2019-04-02 21:42:55 [facility] Scrotal pain Scrotal pain Disease Resolve d 11-11 00:00: 00 2019-04-02 00:00:00 2019-04-02 21:42:57 [facility] Left wrist pain Left wrist pain Disease Resolve d 2016-07 00:00: 00 2019-04-02 00:00:00 2019-04-02 21:42:52 [facility] Allergies, Adverse Reactions, Alerts Allergy Name Allergy Type Status Severity Reaction(s) Onset Date Inactive Date Treating Clinician Comments Source Ibuprofe n Propensi ty to adverse reaction s Active Swelling 01-14 00:00: 00 Lips swell, taken it since episode of swelling without issues [facility] IBUPROFE N DRUG INGREDI Active Swelling 01-14 00:00: 00 [facility] NO KNOWN ALLERGIE S Drug Class Active [facility] Social History Social Habit Start Date Stop Date Quantity Comments Source History SDOH Alcohol Frequency [facility] History SDOH Alcohol Std Drinks [facility] History SDOH Alcohol Binge [facility] Gender identity [facility] History of Social function 2024-10-25 00:00:00 2024-10-25 00:00:00 [facility] Alcoholic beverage intake 2024-10-25 00:00:00 2024-10-25 00:00:00 Current drinker of alcohol (finding) [facility] Alcohol intake 2023-11-16 00:00:00 2023-11-16 00:00:00 Current drinker of alcohol (finding) [facility] Exposure to SARS-CoV-2 (event) 2022-12-05 00:00:00 2022-12-15 13:01:00 Not sure [facility] Tobacco use and exposure 2022-03-16 00:00:00 2022-03-16 00:00:00 Smokeless tobacco non-user [facility] Alcohol Comment 2016-11-06 00:00:00 2016-11-06 00:00:00 socially [facility] Sex assigned at 1980 00:00:00 1980 00:00:00 [facility] Smoking Status Start Date Stop Date Source Never smoked tobacco [facility] Medications Ordered Medication Name Filled Medication Name Start Date Stop Date Current Medication? Ordering Clinician Indication Dosage Frequency Signature (SIG) Comments Components Source atorvastati n 40 mg tablet 01-01 00:00: 00 Yes [id number] 40mg Take 1 tablet by mouth at bedtime. [facility] atorvastati n 20 mg tablet 2023-07 00:00: 00 01-01 00:00 :00 No [id number] 20mg Take 1 tablet by mouth at bedtime. [facility] meloxicam 7.5 mg tablet 2023-07 00:00: 00 Yes [id number] 7.5mg Take 1 tablet by mouth in the morning. [facility] cyclobenzap rine 5 mg tablet 2023-07 00:00: 00 10-25 00:00 :00 No [id number] 5mg Take 1 tablet by mouth in the morning and 1 tablet at noon and 1 tablet in the evening. [facility] methylPREDN ISolone (MEDROL, VENITA,) 4 mg tablets 2023-07 00:00: 00 05-02 04:59 :00 No [id number] Take by mouth SEE-INSTRU CTIONS for 5 days. follow package directions [facility] ketorolac (TORADOL) injection 30 mg 04-03 20:45: 00 04-03 19:55 :00 No [id number] 30mg 30 mg, Intramuscu lar, ONCE, 1 dose, On Wed04/03/24 at 1545, Routine [facility] amitriptyli ne 25 mg tablet 04-03 00:00: 00 Yes [id number] 25mg Take 1 tablet by mouth at bedtime. [facility] SERTraline (ZOLOFT) 50 mg tablet 04-03 00:00: 00 04-03 00:00 :00 No [id number] 50mg Take 1 tablet by mouth in the morning. [facility] rizatriptan 5 mg tablet 03-24 00:00: 00 Yes [id number] 5mg Take 1 tablet by mouth as needed for Migraine (may repeat dose after 1x after at least 2 hrs). May repeat in 2 hours if needed [facility] methylPREDN ISolone (MEDROL, VENITA,) 4 mg tablets 03-24 00:00: 00 03-30 04:59 :00 No [id number] Take by mouth SEE-INSTRU CTIONS for 5 days. follow package directions [facility] meloxicam 15 mg tablet 02-21 00:00: 00 05-31 00:00 :00 No [id number] 15mg Take 1 tablet by mouth every morning. [facility] AZITHROMYCI N 250 mg tablet 01-30 00:00: 00 04-03 00:00 :00 No [id number] 500MG on day 1, then 250mg days 2-5 [facility] albuterol 90 mcg/actuati on inhaler 01-25 00:00: 00 04-03 00:00 :00 No [id number] 2{puff} Inhale 2 Puffs every 6 (six) hours as needed for Wheezing or Shortness of Breath. [facility] bromphenira mine-pseudo ephedrine-D M (BROMFED DM) 2-30-10 mg/5 mL syrup 01-25 00:00: 00 02-05 04:59 :00 No [id number] 10mL Take 10 mL by mouth 4 (four) times daily as needed for Congestion /Allergies for up to 10 days. [facility] ATORVASTATI N 20 mg tablet 2024-0 7-05 00:00: 00 06-02 00:00 :00 No [id number] TAKE 1 TABLET BY MOUTH EVERYDAY AT BEDTIME [facility] fluticasone propionate 50 mcg/actuati on nasal spray 01-18 00:00: 00 Yes [id number] 2{spray } Use 2 Sprays in each nostril in the morning. [facility] benzonatate 200 mg capsule 01-18 00:00: 00 04-03 00:00 :00 No [id number] 200mg Take 1 capsule by mouth 3 (three) times daily as needed for Cough. [facility] predniSONE 20 mg tablet 01-18 00:00: 00 01-24 04:59 :00 No [id number] 40mg Take 2 tablets by mouth in the morning for 5 days. [facility] MELOXICAM 15 mg tablet 607 00:00: 00 02-21 00:00 :00 No [id number] 15mg TAKE 1 TABLET BY MOUTH EVERY DAY IN THE MORNING [facility] gabapentin 100 mg capsule 5-31 00:00: 00 04-03 00:00 :00 No [id number] 100mg Take 1 capsule by mouth in the morning and 1 capsule at noon and 1 capsule in the evening. [facility] cyclobenzap rine 5 mg tablet 430 00:00: 00 04-26 00:00 :00 No [id number] 5mg Take 1 tablet by mouth in the morning and 1 tablet at noon and 1 tablet in the evening. [facility] meloxicam (MOBIC) 15 mg tablet 430 00:00: 00 12-23 00:00 :00 No [id number] 15mg Take 1 tablet by mouth in the morning. [facility] dexamethaso ne (DECADRON) injection 10 mg 11-08 20:00: 00 11-08 19:03 :00 No [id number] 10mg 10 mg, Intramuscu lar, ONCE, 1 dose, On Wed11/09/23 at 1500, Routine [facility] ketorolac (TORADOL) injection 30 mg 11-08 19:45: 00 11-08 19:03 :00 No [id number] 30mg 30 mg, Intramuscu lar, ONCE, 1 dose, On Wed11/09/23 at 1445, Routine [facility] methocarbam oL 750 mg tablet 11-08 00:00: 00 11-16 04:59 :00 No [id number] 750mg Take 1 tablet by mouth 4 (four) times daily for 7 days. [facility] meloxicam (MOBIC) 15 mg tablet 11-08 00:00: 00 11-15 00:00 :00 No [id number] 15mg Take 1 tablet by mouth in the morning for 7 days. [facility] PROPRANOLOL 10 mg tablet 2022-07 00:00: 00 11-15 00:00 :00 No [id number] 10mg TAKE 1 TABLET BY MOUTH 2 (TWO) TIMES DAILY NEEDED FOR PAIN (SCALE 4-6). [facility] sulfur hexafluorid e microsphr (LUMASON) injection 5 mL 2022-07 21:45: 00 06-07 21:46 :00 No [id number] 5mL 5 mL, Intravenou s, ONCE, 1 dose, On Wed06/07/23 at 1545, Routine
bioinformatics team member approving Restricted medication : ELISE RITCHIE [facility] nitroglycer in (NITROSTAT) sublingual tablet 0.8 mg 2022-07 17:00: 00 05-26 16:05 :00 No [id number] .[id number] 0.8 mg, Sublingual , ONCE, 1 dose, On Wed05/26/23 at 1100, Routine [facility] iopamidol (ISOVUE 370-500 mL) injection 80 mL 2022-07 16:11: 00 05-26 16:10 :00 No [id number] 80mL 80 mL, Intravenou s, ONCE, 1 dose, On Wed05/26/23 at 1030, Routine [facility] metoprolol tartrate (LOPRESSOR) tablet 100 mg 2022-07 15:35: 00 05-26 15:35 :00 No [id number] 100mg 100 mg, Oral, ONCE, 1 dose, On Wed05/26/23 at 1000, Routine [facility] ATORVASTATI N 20 mg tablet 2022-07 0-25 00:00: 00 01-20 00:00 :00 No [id number] TAKE 1 TABLET BY MOUTH EVERYDAY AT BEDTIME [facility] SERTraline (ZOLOFT) 50 mg tablet 03-24 00:00: 00 04-02 00:00 :00 No [id number] 50mg Take 1 tablet by mouth in the morning. [facility] propranoloL 10 mg tablet 03-24 00:00: 00 06-21 00:00 :00 No [id number] 10mg Take 1 tablet by mouth 2 (two) times daily as needed for Pain (scale 4-6). [facility] acetaminoph en (TYLENOL) tablet 650 mg 03-19 13:30: 00 03-19 13:56 :00 No 650mg 650 mg, Oral, ONCE, 1 dose, On Wed03/19/23 at 0830, PEGGY [facility] meloxicam 7.5 mg tablet 12-09 00:00: 00 11-15 00:00 :00 No [id number] 7.5mg Take 1 tablet by mouth 2 (two) times daily as needed for Pain (scale 7-10). [facility] tiZANidine 4 mg tablet 5-24 00:00: 00 03-24 00:00 :00 No [id number] 4mg Take 1 tablet by mouth 3 (three) times daily as needed for Pain (scale 7-10). [facility] dexamethaso ne sod phos PF injection 15 mg 08-14 16:30: 00 08-14 15:24 :00 No [id number] 15mg [facility] NaCl 0.9% (NS) injection 4.5 mL 08-14 16:15: 00 08-14 15:25 :00 No [id number] 4.5mL [facility] lidocaine 1% (PF) (XYLOCAINE) injection 10 mL 08-14 16:15: 00 08-14 15:25 :00 No [id number] 10mL [facility] lactated ringers IV infusion 500 mL 08-14 15:30: 00 08-14 14:50 :00 No [id number] 500mL [facility] meloxicam 7.5 mg tablet 08-12 00:00: 00 03-26 00:00 :00 No [id number] 7.5mg Take 1 tablet by mouth 2 (two) times daily as needed for Pain (scale 4-6) for up to 180 doses. [facility] methocarbam oL 500 mg tablet 08-12 00:00: 00 11-11 04:59 :00 No [id number] 500mg Take 1 tablet by mouth at bedtime for 90 days. [facility] methylPREDN ISolone (MEDROL, VENITA,) 4 mg tablets 2021-07 00:00: 00 06-21 05:59 :00 No [id number] Take by mouth SEE-INSTRU CTIONS for 5 days. follow package directions [facility] ATORVASTATI N 20 mg tablet 2021-07 00:00: 00 Yes [id number] TAKE 1 TABLET BY MOUTH EVERYDAY AT BEDTIME [facility] BUSPIRONE 5 mg tablet 2021-07 0-07 00:00: 00 11-15 00:00 :00 No [id number] 5mg TAKE 1 TABLET BY MOUTH IN THE MORNING AND 1 TABLET IN THE EVENING. [facility] SERTraline (ZOLOFT) 50 mg tablet 9-13 00:00: 00 03-24 00:00 :00 No [id number] 50mg Take 1 tablet by mouth in the morning. [facility] busPIRone 5 mg tablet 9-13 00:00: 00 04-24 00:00 :00 No [id number] 5mg Take 1 tablet by mouth in the morning and 1 tablet in the evening. [facility] losartan 25 mg tablet 9-13 00:00: 00 03-31 00:00 :00 No [id number] 25mg Take 1 tablet by mouth in the morning. [facility] PANTOPRAZOL E 40 mg EC tablet 5-19 00:00: 00 06-15 00:00 :00 No [id number] TAKE 1 TABLET BY MOUTH EVERY DAY [facility] atorvastati n 20 mg tablet 4-12 00:00: 00 06-08 00:00 :00 No [id number] 20mg Take 1 tablet by mouth at bedtime. [facility] meclizine 25 mg tablet 2020-07- 00:00: 00 01-14 00:00 :00 No [id number] 25mg Take 1 tablet by mouth every 6 (six) hours. [facility] KETOTIFEN FUMARATE, BULK, MISC 2020-07 215 00:00: 00 01-14 00:00 :00 No [facility] EPINEPHrine 0.3 mg/0.3 mL injection 2020-07 00:00: 00 11-15 00:00 :00 No [facility] fexofenadin e 180 mg tablet 2020-07 00:00: 00 01-14 00:00 :00 No [id number] 360mg Take 2 tablets by mouth 2 (two) times daily. [facility] famotidine 20 mg tablet 2020-07 00:00: 00 10-28 00:00 :00 No [id number] 20mg Take 1 tablet by mouth 2 (two) times daily. [facility] naproxen 500 mg tablet 8-23 00:00: 00 04-03 00:00 :00 No [id number] 500mg Take 1 tablet by mouth 2 (two) times daily as needed for Pain (scale 4-6) for up to 21 days. [facility] atorvastati n 20 mg tablet 12-11 00:00: 00 10-28 00:00 :00 No [id number] 20mg Take 1 tablet by mouth at bedtime. [facility] atorvastati n 10 mg tablet 2019-07 00:00: 00 10-31 00:00 :00 No [id number] 10mg Take 1 tablet by mouth at bedtime. [facility] Immunizations Ordered Immunization Name Filled Immunization Name Date Status Comments Source TDAP 2024-04-04 14:12:34 Completed [facility] Influenza Virus Vaccine (3+ yrs) 2024-04-04 14:12:34 Completed [facility] Influenza Virus Vaccine 2024-04-04 14:12:34 Completed [facility] TD, NOS 2024-04-04 14:12:34 Completed [facility] Influenza Virus Vaccine Quad .5 mL IM 6+ MO (FLUZONE/FLULAVAL/F LUARIX) 2024-04-04 14:12:34 Completed [facility] Pneumococcal Polysaccharide, PPSV23 (PNEUMOVAX) 2024-04-04 14:12:34 Completed [facility] SARS-COV-2 COVID-19 PFIZER VACCINE 2024-04-04 14:12:34 Completed [facility] Influenza Virus Vaccine Quad IM, Preserv and ABX Free 6 MO-64 YRS (FLUCELVAX) 2024-04-04 14:12:34 Completed [facility] Flu Injectable MDCK Pres-Free (FLUCELVAX) 2024-04-04 14:12:34 Completed [facility] Influenza Virus Vaccine (3+ yrs) 2024-04-02 00:00:00 Completed [facility] Influenza Virus Vaccine 2024-04-02 00:00:00 Completed [facility] SARS-COV-2 COVID-19 PFIZER VACCINE 2024-04-02 00:00:00 Completed [facility] Influenza Virus Vaccine Quad IM, Preserv and ABX Free 6 MO-64 YRS (FLUCELVAX) 2024-04-02 00:00:00 Completed [facility] Influenza Virus Vaccine 2024-03-02 14:30:00 Completed [facility] TDAP 2023-12-30 08:45:00 Completed [facility] Influenza Virus Vaccine (3+ yrs) 2023-12-30 08:45:00 Completed [facility] Influenza Virus Vaccine 2023-12-30 08:45:00 Completed [facility] TD, NOS 2023-12-30 08:45:00 Completed [facility] Influenza Virus Vaccine Quad .5 mL IM 6+ MO (FLUZONE/FLULAVAL/F LUARIX) 2023-12-30 08:45:00 Completed [facility] Pneumococcal Polysaccharide, PPSV23 (PNEUMOVAX) 2023-12-30 08:45:00 Completed [facility] SARS-COV-2 COVID-19 PFIZER VACCINE 2023-12-30 08:45:00 Completed [facility] Influenza Virus Vaccine Quad IM, Preserv and ABX Free 6 MO-64 YRS (FLUCELVAX) 2023-12-30 08:45:00 Completed [facility] TDAP 2023-12-29 00:00:00 Completed [facility] Influenza Virus Vaccine (3+ yrs) 2023-12-29 00:00:00 Completed [facility] Influenza Virus Vaccine 2023-12-29 00:00:00 Completed [facility] TD, NOS 2023-12-29 00:00:00 Completed [facility] Influenza Virus Vaccine Quad .5 mL IM 6+ MO (FLUZONE/FLULAVAL/F LUARIX) 2023-12-29 00:00:00 Completed [facility] Pneumococcal Polysaccharide, PPSV23 (PNEUMOVAX) 2023-12-29 00:00:00 Completed [facility] SARS-COV-2 COVID-19 PFIZER VACCINE 2023-12-29 00:00:00 Completed [facility] Influenza Virus Vaccine Quad IM, Preserv and ABX Free 6 MO-64 YRS (FLUCELVAX) 2023-12-29 00:00:00 Completed [facility] TDAP 2023-12-29 00:00:00 Completed [facility] TD, NOS 2023-12-29 00:00:00 Completed [facility] Influenza Virus Vaccine Quad .5 mL IM 6+ MO (FLUZONE/FLULAVAL/F LUARIX) 2023-12-29 00:00:00 Completed [facility] Pneumococcal Polysaccharide, PPSV23 (PNEUMOVAX) 2023-12-29 00:00:00 Completed [facility] TDAP 2023-12-23 08:45:00 Completed [facility] Influenza Virus Vaccine (3+ yrs) 2023-12-23 08:45:00 Completed [facility] Influenza Virus Vaccine 2023-12-23 08:45:00 Completed [facility] TD, NOS 2023-12-23 08:45:00 Completed [facility] Influenza Virus Vaccine Quad .5 mL IM 6+ MO (FLUZONE/FLULAVAL/F LUARIX) 2023-12-23 08:45:00 Completed [facility] Pneumococcal Polysaccharide, PPSV23 (PNEUMOVAX) 2023-12-23 08:45:00 Completed [facility] SARS-COV-2 COVID-19 PFIZER VACCINE 2023-12-23 08:45:00 Completed [facility] Influenza Virus Vaccine Quad IM, Preserv and ABX Free 6 MO-64 YRS (FLUCELVAX) 2023-12-23 08:45:00 Completed [facility] TDAP 2023-12-23 00:00:00 Completed [facility] Influenza Virus Vaccine (3+ yrs) 2023-12-23 00:00:00 Completed [facility] Influenza Virus Vaccine 2023-12-23 00:00:00 Completed [facility] TD, NOS 2023-12-23 00:00:00 Completed [facility] Influenza Virus Vaccine Quad .5 mL IM 6+ MO (FLUZONE/FLULAVAL/F LUARIX) 2023-12-23 00:00:00 Completed [facility] Pneumococcal Polysaccharide, PPSV23 (PNEUMOVAX) 2023-12-23 00:00:00 Completed [facility] SARS-COV-2 COVID-19 PFIZER VACCINE 2023-12-23 00:00:00 Completed [facility] Influenza Virus Vaccine Quad IM, Preserv and ABX Free 6 MO-64 YRS (FLUCELVAX) 2023-12-23 00:00:00 Completed [facility] TDAP 2023-12-17 10:30:00 Completed [facility] TD, NOS 2023-12-17 10:30:00 Completed [facility] Influenza Virus Vaccine Quad .5 mL IM 6+ MO (FLUZONE/FLULAVAL/F LUARIX) 2023-12-17 10:30:00 Completed [facility] Pneumococcal Polysaccharide, PPSV23 (PNEUMOVAX) 2023-12-17 10:30:00 Completed [facility] Influenza Virus Vaccine (3+ yrs) 2023-12-17 10:30:00 Completed [facility] Influenza Virus Vaccine 2023-12-17 10:30:00 Completed [facility] SARS-COV-2 COVID-19 PFIZER VACCINE 2023-12-17 10:30:00 Completed [facility] Influenza Virus Vaccine Quad IM, Preserv and ABX Free 6 MO-64 YRS (FLUCELVAX) 2023-12-17 10:30:00 Completed [facility] TDAP 2023-12-16 14:30:00 Completed [facility] Influenza Virus Vaccine (3+ yrs) 2023-12-16 14:30:00 Completed [facility] Influenza Virus Vaccine 2023-12-16 14:30:00 Completed [facility] TD, NOS 2023-12-16 14:30:00 Completed [facility] Influenza Virus Vaccine Quad .5 mL IM 6+ MO (FLUZONE/FLULAVAL/F LUARIX) 2023-12-16 14:30:00 Completed [facility] Pneumococcal Polysaccharide, PPSV23 (PNEUMOVAX) 2023-12-16 14:30:00 Completed [facility] SARS-COV-2 COVID-19 PFIZER VACCINE 2023-12-16 14:30:00 Completed [facility] Influenza Virus Vaccine Quad IM, Preserv and ABX Free 6 MO-64 YRS (FLUCELVAX) 2023-12-16 14:30:00 Completed [facility] TDAP 2023-12-03 12:00:00 Completed [facility] Influenza Virus Vaccine (3+ yrs) 2023-12-03 12:00:00 Completed [facility] Influenza Virus Vaccine 2023-12-03 12:00:00 Completed [facility] TD, NOS 2023-12-03 12:00:00 Completed [facility] Influenza Virus Vaccine Quad .5 mL IM 6+ MO (FLUZONE/FLULAVAL/F LUARIX) 2023-12-03 12:00:00 Completed [facility] Pneumococcal Polysaccharide, PPSV23 (PNEUMOVAX) 2023-12-03 12:00:00 Completed [facility] SARS-COV-2 COVID-19 PFIZER VACCINE 2023-12-03 12:00:00 Completed [facility] Influenza Virus Vaccine Quad IM, Preserv and ABX Free 6 MO-64 YRS (FLUCELVAX) 2023-12-03 12:00:00 Completed [facility] TDAP 2023-12-01 00:00:00 Completed [facility] Influenza Virus Vaccine (3+ yrs) 2023-12-01 00:00:00 Completed [facility] Influenza Virus Vaccine 2023-12-01 00:00:00 Completed [facility] TD, NOS 2023-12-01 00:00:00 Completed [facility] Influenza Virus Vaccine Quad .5 mL IM 6+ MO (FLUZONE/FLULAVAL/F LUARIX) 2023-12-01 00:00:00 Completed [facility] Pneumococcal Polysaccharide, PPSV23 (PNEUMOVAX) 2023-12-01 00:00:00 Completed [facility] SARS-COV-2 COVID-19 PFIZER VACCINE 2023-12-01 00:00:00 Completed [facility] Influenza Virus Vaccine Quad IM, Preserv and ABX Free 6 MO-64 YRS (FLUCELVAX) 2023-12-01 00:00:00 Completed [facility] TDAP 2023-11-16 13:30:00 Completed [facility] TD, NOS 2023-11-16 13:30:00 Completed [facility] Influenza Virus Vaccine Quad .5 mL IM 6+ MO (FLUZONE/FLULAVAL/F LUARIX) 2023-11-16 13:30:00 Completed [facility] Pneumococcal Polysaccharide, PPSV23 (PNEUMOVAX) 2023-11-16 13:30:00 Completed [facility] Influenza Virus Vaccine (3+ yrs) 2023-11-16 13:30:00 Completed [facility] Influenza Virus Vaccine 2023-11-16 13:30:00 Completed [facility] SARS-COV-2 COVID-19 PFIZER VACCINE 2023-11-16 13:30:00 Completed [facility] Influenza Virus Vaccine Quad IM, Preserv and ABX Free 6 MO-64 YRS (FLUCELVAX) 2023-11-16 13:30:00 Completed [facility] TDAP 2023-11-09 13:40:00 Completed [facility] Influenza Virus Vaccine (3+ yrs) 2023-11-09 13:40:00 Completed [facility] Influenza Virus Vaccine 2023-11-09 13:40:00 Completed [facility] TD, NOS 2023-11-09 13:40:00 Completed [facility] Influenza Virus Vaccine Quad .5 mL IM 6+ MO (FLUZONE/FLULAVAL/F LUARIX) 2023-11-09 13:40:00 Completed [facility] Pneumococcal Polysaccharide, PPSV23 (PNEUMOVAX) 2023-11-09 13:40:00 Completed [facility] SARS-COV-2 COVID-19 PFIZER VACCINE 2023-11-09 13:40:00 Completed [facility] Influenza Virus Vaccine Quad IM, Preserv and ABX Free 6 MO-64 YRS (FLUCELVAX) 2023-11-09 13:40:00 Completed [facility] TDAP 2023-07-08 00:00:00 Completed [facility] Influenza Virus Vaccine (3+ yrs) 2023-07-08 00:00:00 Completed [facility] Influenza Virus Vaccine 2023-07-08 00:00:00 Completed [facility] TD, NOS 2023-07-08 00:00:00 Completed [facility] Influenza Virus Vaccine Quad .5 mL IM 6+ MO (FLUZONE/FLULAVAL/F LUARIX) 2023-07-08 00:00:00 Completed [facility] Pneumococcal Polysaccharide, PPSV23 (PNEUMOVAX) 2023-07-08 00:00:00 Completed [facility] SARS-COV-2 COVID-19 PFIZER VACCINE 2023-07-08 00:00:00 Completed [facility] Influenza Virus Vaccine Quad IM, Preserv and ABX Free 6 MO-64 YRS (FLUCELVAX) 2023-07-08 00:00:00 Completed [facility] TDAP 2023-06-23 12:46:42 Completed [facility] Influenza Virus Vaccine (3+ yrs) 2023-06-23 12:46:42 Completed [facility] Influenza Virus Vaccine 2023-06-23 12:46:42 Completed [facility] TD, NOS 2023-06-23 12:46:42 Completed [facility] Influenza Virus Vaccine Quad .5 mL IM 6+ MO (FLUZONE/FLULAVAL/F LUARIX) 2023-06-23 12:46:42 Completed [facility] Pneumococcal Polysaccharide, PPSV23 (PNEUMOVAX) 2023-06-23 12:46:42 Completed [facility] SARS-COV-2 COVID-19 PFIZER VACCINE 2023-06-23 12:46:42 Completed [facility] Influenza Virus Vaccine Quad IM, Preserv and ABX Free 6 MO-64 YRS (FLUCELVAX) 2023-06-23 12:46:42 Completed [facility] TDAP 2023-06-23 00:00:00 Completed [facility] Influenza Virus Vaccine (3+ yrs) 2023-06-23 00:00:00 Completed [facility] Influenza Virus Vaccine 2023-06-23 00:00:00 Completed [facility] TD, NOS 2023-06-23 00:00:00 Completed [facility] Influenza Virus Vaccine Quad .5 mL IM 6+ MO (FLUZONE/FLULAVAL/F LUARIX) 2023-06-23 00:00:00 Completed [facility] Pneumococcal Polysaccharide, PPSV23 (PNEUMOVAX) 2023-06-23 00:00:00 Completed [facility] SARS-COV-2 COVID-19 PFIZER VACCINE 2023-06-23 00:00:00 Completed [facility] Influenza Virus Vaccine Quad IM, Preserv and ABX Free 6 MO-64 YRS (FLUCELVAX) 2023-06-23 00:00:00 Completed [facility] TDAP 2023-06-23 00:00:00 Completed [facility] Influenza Virus Vaccine (3+ yrs) 2023-06-23 00:00:00 Completed [facility] Influenza Virus Vaccine 2023-06-23 00:00:00 Completed [facility] TD, NOS 2023-06-23 00:00:00 Completed [facility] Influenza Virus Vaccine Quad .5 mL IM 6+ MO (FLUZONE/FLULAVAL/F LUARIX) 2023-06-23 00:00:00 Completed [facility] Pneumococcal Polysaccharide, PPSV23 (PNEUMOVAX) 2023-06-23 00:00:00 Completed [facility] SARS-COV-2 COVID-19 PFIZER VACCINE 2023-06-23 00:00:00 Completed [facility] Influenza Virus Vaccine Quad IM, Preserv and ABX Free 6 MO-64 YRS (FLUCELVAX) 2023-06-23 00:00:00 Completed [facility] TDAP 2023-06-21 00:00:00 Completed [facility] Influenza Virus Vaccine (3+ yrs) 2023-06-21 00:00:00 Completed [facility] Influenza Virus Vaccine 2023-06-21 00:00:00 Completed [facility] TD, NOS 2023-06-21 00:00:00 Completed [facility] Influenza Virus Vaccine Quad .5 mL IM 6+ MO (FLUZONE/FLULAVAL/F LUARIX) 2023-06-21 00:00:00 Completed [facility] Pneumococcal Polysaccharide, PPSV23 (PNEUMOVAX) 2023-06-21 00:00:00 Completed [facility] SARS-COV-2 COVID-19 PFIZER VACCINE 2023-06-21 00:00:00 Completed [facility] Influenza Virus Vaccine Quad IM, Preserv and ABX Free 6 MO-64 YRS (FLUCELVAX) 2023-06-21 00:00:00 Completed [facility] TDAP 2023-06-08 00:00:00 Completed [facility] Influenza Virus Vaccine (3+ yrs) 2023-06-08 00:00:00 Completed [facility] Influenza Virus Vaccine 2023-06-08 00:00:00 Completed [facility] TD, NOS 2023-06-08 00:00:00 Completed [facility] Influenza Virus Vaccine Quad .5 mL IM 6+ MO (FLUZONE/FLULAVAL/F LUARIX) 2023-06-08 00:00:00 Completed [facility] Pneumococcal Polysaccharide, PPSV23 (PNEUMOVAX) 2023-06-08 00:00:00 Completed [facility] SARS-COV-2 COVID-19 PFIZER VACCINE 2023-06-08 00:00:00 Completed [facility] Influenza Virus Vaccine Quad IM, Preserv and ABX Free 6 MO-64 YRS (FLUCELVAX) 2023-06-08 00:00:00 Completed [facility] TDAP 2023-06-07 14:48:39 Completed [facility] Influenza Virus Vaccine (3+ yrs) 2023-06-07 14:48:39 Completed [facility] Influenza Virus Vaccine 2023-06-07 14:48:39 Completed [facility] TD, NOS 2023-06-07 14:48:39 Completed [facility] Influenza Virus Vaccine Quad .5 mL IM 6+ MO (FLUZONE/FLULAVAL/F LUARIX) 2023-06-07 14:48:39 Completed [facility] Pneumococcal Polysaccharide, PPSV23 (PNEUMOVAX) 2023-06-07 14:48:39 Completed [facility] SARS-COV-2 COVID-19 PFIZER VACCINE 2023-06-07 14:48:39 Completed [facility] Influenza Virus Vaccine Quad IM, Preserv and ABX Free 6 MO-64 YRS (FLUCELVAX) 2023-06-07 14:48:39 Completed [facility] TDAP 2023-05-27 00:00:00 Completed [facility] Influenza Virus Vaccine (3+ yrs) 2023-05-27 00:00:00 Completed [facility] Influenza Virus Vaccine 2023-05-27 00:00:00 Completed [facility] TD, NOS 2023-05-27 00:00:00 Completed [facility] Influenza Virus Vaccine Quad .5 mL IM 6+ MO (FLUZONE/FLULAVAL/F LUARIX) 2023-05-27 00:00:00 Completed [facility] Pneumococcal Polysaccharide, PPSV23 (PNEUMOVAX) 2023-05-27 00:00:00 Completed [facility] SARS-COV-2 COVID-19 PFIZER VACCINE 2023-05-27 00:00:00 Completed [facility] Influenza Virus Vaccine Quad IM, Preserv and ABX Free 6 MO-64 YRS (FLUCELVAX) 2023-05-27 00:00:00 Completed [facility] TDAP 2023-05-26 09:07:34 Completed [facility] Influenza Virus Vaccine (3+ yrs) 2023-05-26 09:07:34 Completed [facility] Influenza Virus Vaccine 2023-05-26 09:07:34 Completed [facility] TD, NOS 2023-05-26 09:07:34 Completed [facility] Influenza Virus Vaccine Quad .5 mL IM 6+ MO (FLUZONE/FLULAVAL/F LUARIX) 2023-05-26 09:07:34 Completed [facility] Pneumococcal Polysaccharide, PPSV23 (PNEUMOVAX) 2023-05-26 09:07:34 Completed [facility] SARS-COV-2 COVID-19 PFIZER VACCINE 2023-05-26 09:07:34 Completed [facility] Influenza Virus Vaccine Quad IM, Preserv and ABX Free 6 MO-64 YRS (FLUCELVAX) 2023-05-26 09:07:34 Completed [facility] TDAP 2023-05-25 00:00:00 Completed [facility] Influenza Virus Vaccine (3+ yrs) 2023-05-25 00:00:00 Completed [facility] Influenza Virus Vaccine 2023-05-25 00:00:00 Completed [facility] TD, NOS 2023-05-25 00:00:00 Completed [facility] Influenza Virus Vaccine Quad .5 mL IM 6+ MO (FLUZONE/FLULAVAL/F LUARIX) 2023-05-25 00:00:00 Completed [facility] Pneumococcal Polysaccharide, PPSV23 (PNEUMOVAX) 2023-05-25 00:00:00 Completed [facility] SARS-COV-2 COVID-19 PFIZER VACCINE 2023-05-25 00:00:00 Completed [facility] Influenza Virus Vaccine Quad IM, Preserv and ABX Free 6 MO-64 YRS (FLUCELVAX) 2023-05-25 00:00:00 Completed [facility] TDAP 2023-05-25 00:00:00 Completed [facility] Influenza Virus Vaccine (3+ yrs) 2023-05-25 00:00:00 Completed [facility] Influenza Virus Vaccine 2023-05-25 00:00:00 Completed [facility] TD, NOS 2023-05-25 00:00:00 Completed [facility] Influenza Virus Vaccine Quad .5 mL IM 6+ MO (FLUZONE/FLULAVAL/F LUARIX) 2023-05-25 00:00:00 Completed [facility] Pneumococcal Polysaccharide, PPSV23 (PNEUMOVAX) 2023-05-25 00:00:00 Completed [facility] SARS-COV-2 COVID-19 PFIZER VACCINE 2023-05-25 00:00:00 Completed [facility] Influenza Virus Vaccine Quad IM, Preserv and ABX Free 6 MO-64 YRS (FLUCELVAX) 2023-05-25 00:00:00 Completed [facility] TDAP 2023-05-24 08:30:00 Completed [facility] Influenza Virus Vaccine (3+ yrs) 2023-05-24 08:30:00 Completed [facility] Influenza Virus Vaccine 2023-05-24 08:30:00 Completed [facility] TD, NOS 2023-05-24 08:30:00 Completed [facility] Influenza Virus Vaccine Quad .5 mL IM 6+ MO (FLUZONE/FLULAVAL/F LUARIX) 2023-05-24 08:30:00 Completed [facility] Pneumococcal Polysaccharide, PPSV23 (PNEUMOVAX) 2023-05-24 08:30:00 Completed [facility] SARS-COV-2 COVID-19 PFIZER VACCINE 2023-05-24 08:30:00 Completed [facility] Influenza Virus Vaccine Quad IM, Preserv and ABX Free 6 MO-64 YRS (FLUCELVAX) 2023-05-24 08:30:00 Completed [facility] TDAP 2023-05-24 08:00:00 Completed [facility] Influenza Virus Vaccine (3+ yrs) 2023-05-24 08:00:00 Completed [facility] Influenza Virus Vaccine 2023-05-24 08:00:00 Completed [facility] TD, NOS 2023-05-24 08:00:00 Completed [facility] Influenza Virus Vaccine Quad .5 mL IM 6+ MO (FLUZONE/FLULAVAL/F LUARIX) 2023-05-24 08:00:00 Completed [facility] Pneumococcal Polysaccharide, PPSV23 (PNEUMOVAX) 2023-05-24 08:00:00 Completed [facility] SARS-COV-2 COVID-19 PFIZER VACCINE 2023-05-24 08:00:00 Completed [facility] Influenza Virus Vaccine Quad IM, Preserv and ABX Free 6 MO-64 YRS (FLUCELVAX) 2023-05-24 08:00:00 Completed [facility] TDAP 2023-05-24 00:00:00 Completed [facility] Influenza Virus Vaccine (3+ yrs) 2023-05-24 00:00:00 Completed [facility] Influenza Virus Vaccine 2023-05-24 00:00:00 Completed [facility] TD, NOS 2023-05-24 00:00:00 Completed [facility] Influenza Virus Vaccine Quad .5 mL IM 6+ MO (FLUZONE/FLULAVAL/F LUARIX) 2023-05-24 00:00:00 Completed [facility] Pneumococcal Polysaccharide, PPSV23 (PNEUMOVAX) 2023-05-24 00:00:00 Completed [facility] SARS-COV-2 COVID-19 PFIZER VACCINE 2023-05-24 00:00:00 Completed [facility] Influenza Virus Vaccine Quad IM, Preserv and ABX Free 6 MO-64 YRS (FLUCELVAX) 2023-05-24 00:00:00 Completed [facility] TDAP 2023-05-10 13:20:00 Completed [facility] Influenza Virus Vaccine (3+ yrs) 2023-05-10 13:20:00 Completed [facility] Influenza Virus Vaccine 2023-05-10 13:20:00 Completed [facility] TD, NOS 2023-05-10 13:20:00 Completed [facility] Influenza Virus Vaccine Quad .5 mL IM 6+ MO (FLUZONE/FLULAVAL/F LUARIX) 2023-05-10 13:20:00 Completed [facility] Pneumococcal Polysaccharide, PPSV23 (PNEUMOVAX) 2023-05-10 13:20:00 Completed [facility] SARS-COV-2 COVID-19 PFIZER VACCINE 2023-05-10 13:20:00 Completed [facility] Influenza Virus Vaccine Quad IM, Preserv and ABX Free 6 MO-64 YRS (FLUCELVAX) 2023-05-10 13:20:00 Completed [facility] TDAP 2022-08-13 00:00:00 Completed [facility] Influenza Virus Vaccine (3+ yrs) 2022-08-13 00:00:00 Completed [facility] Influenza Virus Vaccine 2022-08-13 00:00:00 Completed [facility] TD, NOS 2022-08-13 00:00:00 Completed [facility] Influenza Virus Vaccine Quad .5 mL IM 6+ MO (FLUZONE/FLULAVAL/F LUARIX) 2022-08-13 00:00:00 Completed [facility] Pneumococcal Polysaccharide, PPSV23 (PNEUMOVAX) 2022-08-13 00:00:00 Completed [facility] SARS-COV-2 COVID-19 PFIZER VACCINE 2022-08-13 00:00:00 Completed [facility] Influenza Virus Vaccine Quad IM, Preserv and ABX Free 6 MO-64 YRS (FLUCELVAX) 2022-08-13 00:00:00 Completed [facility] Influenza Virus Vaccine Quad IM, Preserv and ABX Free 6 MO-64 YRS 2022-04-15 00:00:00 Completed [facility] Influenza Virus Vaccine Quad IM, Preserv and ABX Free 6 MO-64 YRS 2022-04-15 00:00:00 Completed [facility] Influenza Virus Vaccine Quad IM, Preserv and ABX Free 6 MO-64 YRS 2022-04-15 00:00:00 Completed [facility] Influenza Virus Vaccine Quad IM, Preserv and ABX Free 6 MO-64 YRS 2022-04-15 00:00:00 Completed [facility] Influenza Virus Vaccine Quad IM, Preserv and ABX Free 6 MO-64 YRS 2022-04-15 00:00:00 Completed [facility] Influenza Virus Vaccine Quad IM, Preserv and ABX Free 6 MO-64 YRS 2022-04-15 00:00:00 Completed [facility] Influenza Virus Vaccine Quad IM, Preserv and ABX Free 6 MO-64 YRS 2022-04-15 00:00:00 Completed [facility] Influenza Virus Vaccine Quad IM, Preserv and ABX Free 6 MO-64 YRS 2022-04-15 00:00:00 Completed [facility] Influenza Virus Vaccine Quad IM, Preserv and ABX Free 6 MO-64 YRS 2022-04-15 00:00:00 Completed [facility] Influenza Virus Vaccine Quad IM, Preserv and ABX Free 6 MO-64 YRS 2022-04-15 00:00:00 Completed [facility] Influenza Virus Vaccine Quad IM, Preserv and ABX Free 6 MO-64 YRS 2022-04-15 00:00:00 Completed [facility] Influenza Virus Vaccine Quad IM, Preserv and ABX Free 6 MO-64 YRS 2022-04-15 00:00:00 Completed [facility] Influenza Virus Vaccine Quad IM, Preserv and ABX Free 6 MO-64 YRS 2022-04-15 00:00:00 Completed [facility] Influenza Virus Vaccine Quad IM, Preserv and ABX Free 6 MO-64 YRS 2022-04-15 00:00:00 Completed [facility] Influenza Virus Vaccine Quad IM, Preserv and ABX Free 6 MO-64 YRS 2022-04-15 00:00:00 Completed [facility] Influenza Virus Vaccine Quad IM, Preserv and ABX Free 6 MO-64 YRS 2022-04-15 00:00:00 Completed [facility] Influenza Virus Vaccine Quad IM, Preserv and ABX Free 6 MO-64 YRS 2022-04-15 00:00:00 Completed [facility] Influenza Virus Vaccine Quad IM, Preserv and ABX Free 6 MO-64 YRS 2022-04-15 00:00:00 Completed [facility] Influenza Virus Vaccine Quad IM, Preserv and ABX Free 6 MO-64 YRS 2022-04-15 00:00:00 Completed [facility] Influenza Virus Vaccine Quad IM, Preserv and ABX Free 6 MO-64 YRS 2022-04-15 00:00:00 Completed [facility] Influenza Virus Vaccine Quad IM, Preserv and ABX Free 6 MO-64 YRS 2022-04-15 00:00:00 Completed [facility] Influenza Virus Vaccine Quad IM, Preserv and ABX Free 6 MO-64 YRS 2022-04-15 00:00:00 Completed [facility] Influenza Virus Vaccine Quad IM, Preserv and ABX Free 6 MO-64 YRS 2022-04-15 00:00:00 Completed [facility] Influenza Virus Vaccine Quad IM, Preserv and ABX Free 6 MO-64 YRS 2022-04-15 00:00:00 Completed [facility] Influenza Virus Vaccine Quad IM, Preserv and ABX Free 6 MO-64 YRS 2022-04-15 00:00:00 Completed [facility] Influenza Virus Vaccine Quad IM, Preserv and ABX Free 6 MO-64 YRS 2022-04-15 00:00:00 Completed [facility] Influenza Virus Vaccine Quad IM, Preserv and ABX Free 6 MO-64 YRS 2022-04-15 00:00:00 Completed [facility] Influenza Virus Vaccine Quad IM, Preserv and ABX Free 6 MO-64 YRS 2022-04-15 00:00:00 Completed [facility] Influenza Virus Vaccine Quad IM, Preserv and ABX Free 6 MO-64 YRS 2022-04-15 00:00:00 Completed [facility] Influenza Virus Vaccine Quad IM, Preserv and ABX Free 6 MO-64 YRS 2022-04-15 00:00:00 Completed [facility] Influenza Virus Vaccine Quad IM, Preserv and ABX Free 6 MO-64 YRS 2022-04-15 00:00:00 Completed [facility] Influenza Virus Vaccine Quad IM, Preserv and ABX Free 6 MO-64 YRS 2022-04-15 00:00:00 Completed [facility] Influenza Virus Vaccine Quad IM, Preserv and ABX Free 6 MO-64 YRS 2022-04-15 00:00:00 Completed [facility] Influenza Virus Vaccine Quad IM, Preserv and ABX Free 6 MO-64 YRS 2022-04-15 00:00:00 Completed [facility] Influenza Virus Vaccine Quad IM, Preserv and ABX Free 6 MO-64 YRS 2022-04-15 00:00:00 Completed [facility] Influenza Virus Vaccine Quad IM, Preserv and ABX Free 6 MO-64 YRS 2022-04-15 00:00:00 Completed [facility] Influenza Virus Vaccine Quad IM, Preserv and ABX Free 6 MO-64 YRS 2022-04-15 00:00:00 Completed [facility] Influenza Virus Vaccine Quad IM, Preserv and ABX Free 6 MO-64 YRS 2022-04-15 00:00:00 Completed [facility] Influenza Virus Vaccine Quad IM, Preserv and ABX Free 6 MO-64 YRS 2022-04-15 00:00:00 Completed [facility] Influenza Virus Vaccine Quad IM, Preserv and ABX Free 6 MO-64 YRS 2022-04-15 00:00:00 Completed [facility] Influenza Virus Vaccine Quad IM, Preserv and ABX Free 6 MO-64 YRS 2022-04-15 00:00:00 Completed [facility] Influenza Virus Vaccine Quad IM, Preserv and ABX Free 6 MO-64 YRS 2022-04-15 00:00:00 Completed [facility] Influenza Virus Vaccine Quad IM, Preserv and ABX Free 6 MO-64 YRS 2022-04-15 00:00:00 Completed [facility] Influenza Virus Vaccine Quad IM, Preserv and ABX Free 6 MO-64 YRS 2022-04-15 00:00:00 Completed [facility] Influenza Virus Vaccine Quad IM, Preserv and ABX Free 6 MO-64 YRS 2022-04-15 00:00:00 Completed [facility] Influenza Virus Vaccine Quad IM, Preserv and ABX Free 6 MO-64 YRS 2022-04-15 00:00:00 Completed [facility] Influenza Virus Vaccine Quad IM, Preserv and ABX Free 6 MO-64 YRS 2022-04-15 00:00:00 Completed [facility] Influenza Virus Vaccine Quad IM, Preserv and ABX Free 6 MO-64 YRS 2022-04-15 00:00:00 Completed [facility] Influenza Virus Vaccine Quad IM, Preserv and ABX Free 6 MO-64 YRS 2022-04-15 00:00:00 Completed [facility] Influenza Virus Vaccine Quad IM, Preserv and ABX Free 6 MO-64 YRS 2022-04-15 00:00:00 Completed [facility] Influenza Virus Vaccine Quad IM, Preserv and ABX Free 6 MO-64 YRS 2022-04-15 00:00:00 Completed [facility] Influenza Virus Vaccine Quad IM, Preserv and ABX Free 6 MO-64 YRS 2022-04-15 00:00:00 Completed [facility] Influenza Virus Vaccine Quad IM, Preserv and ABX Free 6 MO-64 YRS 2022-04-15 00:00:00 Completed [facility] Influenza Virus Vaccine Quad IM, Preserv and ABX Free 6 MO-64 YRS (FLUCELVAX) 2022-04-15 00:00:00 Completed [facility] Influenza Virus Vaccine Quad IM, Preserv and ABX Free 6 MO-64 YRS (FLUCELVAX) 2022-04-15 00:00:00 Completed [facility] Influenza Virus Vaccine Quad IM, Preserv and ABX Free 6 MO-64 YRS (FLUCELVAX) 2022-04-15 00:00:00 Completed [facility] Influenza Virus Vaccine Quad IM, Preserv and ABX Free 6 MO-64 YRS (FLUCELVAX) 2022-04-15 00:00:00 Completed [facility] Influenza Virus Vaccine Quad IM, Preserv and ABX Free 6 MO-64 YRS (FLUCELVAX) 2022-04-15 00:00:00 Completed [facility] Influenza Virus Vaccine Quad IM, Preserv and ABX Free 6 MO-64 YRS (FLUCELVAX) 2022-04-15 00:00:00 Completed [facility] Influenza Virus Vaccine Quad IM, Preserv and ABX Free 6 MO-64 YRS (FLUCELVAX) 2022-04-15 00:00:00 Completed [facility] Influenza Virus Vaccine Quad IM, Preserv and ABX Free 6 MO-64 YRS (FLUCELVAX) 2022-04-15 00:00:00 Completed [facility] TDAP 2022-01-13 00:00:00 Completed [facility] Influenza Virus Vaccine (3+ yrs) 2022-01-13 00:00:00 Completed [facility] Influenza Virus Vaccine 2022-01-13 00:00:00 Completed [facility] TD, NOS 2022-01-13 00:00:00 Completed [facility] Influenza Virus Vaccine Quad .5 mL IM 6+ MO (FLUZONE/FLULAVAL/F LUARIX) 2022-01-13 00:00:00 Completed [facility] Pneumococcal Polysaccharide, PPSV23 (PNEUMOVAX) 2022-01-13 00:00:00 Completed [facility] SARS-COV-2 COVID-19 PFIZER VACCINE 2022-01-13 00:00:00 Completed [facility] TDAP 2021-12-29 00:00:00 Completed [facility] Influenza Virus Vaccine (3+ yrs) 2021-12-29 00:00:00 Completed [facility] Influenza Virus Vaccine 2021-12-29 00:00:00 Completed [facility] TD, NOS 2021-12-29 00:00:00 Completed [facility] Influenza Virus Vaccine Quad .5 mL IM 6+ MO (FLUZONE/FLULAVAL/F LUARIX) 2021-12-29 00:00:00 Completed [facility] Pneumococcal Polysaccharide, PPSV23 (PNEUMOVAX) 2021-12-29 00:00:00 Completed [facility] SARS-COV-2 COVID-19 PFIZER VACCINE 2021-12-29 00:00:00 Completed [facility] TDAP 2021-07-22 00:00:00 Completed [facility] Influenza Virus Vaccine (3+ yrs) 2021-07-22 00:00:00 Completed [facility] Influenza Virus Vaccine 2021-07-22 00:00:00 Completed [facility] TD, NOS 2021-07-22 00:00:00 Completed [facility] Influenza Virus Vaccine Quad .5 mL IM 6+ MO (FLUZONE/FLULAVAL/F LUARIX) 2021-07-22 00:00:00 Completed [facility] Pneumococcal Polysaccharide, PPSV23 (PNEUMOVAX) 2021-07-22 00:00:00 Completed [facility] SARS-COV-2 COVID-19 PFIZER VACCINE 2021-07-22 00:00:00 Completed [facility] TDAP 2021-03-15 00:00:00 Completed [facility] Influenza Virus Vaccine (3+ yrs) 2021-03-15 00:00:00 Completed [facility] Influenza Virus Vaccine 2021-03-15 00:00:00 Completed [facility] TD, NOS 2021-03-15 00:00:00 Completed [facility] Influenza Virus Vaccine Quad .5 mL IM 6+ MO (FLUZONE/FLULAVAL/F LUARIX) 2021-03-15 00:00:00 Completed [facility] Pneumococcal Polysaccharide, PPSV23 (PNEUMOVAX) 2021-03-15 00:00:00 Completed [facility] SARS-COV-2 COVID-19 PFIZER VACCINE 2021-03-15 00:00:00 Completed [facility] TDAP 2020-10-30 00:00:00 Completed [facility] Influenza Virus Vaccine (3+ yrs) 2020-10-30 00:00:00 Completed [facility] Influenza Virus Vaccine 2020-10-30 00:00:00 Completed [facility] TD, NOS 2020-10-30 00:00:00 Completed [facility] Influenza Virus Vaccine Quad .5 mL IM 6+ MO (FLUZONE/FLULAVAL/F LUARIX) 2020-10-30 00:00:00 Completed [facility] Pneumococcal Polysaccharide, PPSV23 (PNEUMOVAX) 2020-10-30 00:00:00 Completed [facility] SARS-COV-2 COVID-19 PFIZER VACCINE 2020-10-30 00:00:00 Completed [facility] TDAP 2020-10-30 00:00:00 Completed [facility] Influenza Virus Vaccine (3+ yrs) 2020-10-30 00:00:00 Completed [facility] Influenza Virus Vaccine 2020-10-30 00:00:00 Completed [facility] TD, NOS 2020-10-30 00:00:00 Completed [facility] Influenza Virus Vaccine Quad .5 mL IM 6+ MO (FLUZONE/FLULAVAL/F LUARIX) 2020-10-30 00:00:00 Completed [facility] Pneumococcal Polysaccharide, PPSV23 (PNEUMOVAX) 2020-10-30 00:00:00 Completed [facility] SARS-COV-2 COVID-19 PFIZER VACCINE 2020-10-30 00:00:00 Completed [facility] SARS-COV-2 COVID-19 PFIZER VACCINE 2020-10-26 00:00:00 Completed [facility] SARS-COV-2 COVID-19 PFIZER VACCINE 2020-10-26 00:00:00 Completed [facility] SARS-COV-2 COVID-19 PFIZER VACCINE 2020-10-26 00:00:00 Completed [facility] SARS-COV-2 COVID-19 PFIZER VACCINE 2020-10-26 00:00:00 Completed [facility] SARS-COV-2 COVID-19 PFIZER VACCINE 2020-10-26 00:00:00 Completed [facility] SARS-COV-2 COVID-19 PFIZER VACCINE 2020-10-26 00:00:00 Completed [facility] SARS-COV-2 COVID-19 PFIZER VACCINE 2020-10-26 00:00:00 Completed [facility] SARS-COV-2 COVID-19 PFIZER VACCINE 2020-10-26 00:00:00 Completed [facility] SARS-COV-2 COVID-19 PFIZER VACCINE 2020-10-26 00:00:00 Completed [facility] SARS-COV-2 COVID-19 PFIZER VACCINE 2020-10-26 00:00:00 Completed [facility] SARS-COV-2 COVID-19 PFIZER VACCINE 2020-10-26 00:00:00 Completed [facility] SARS-COV-2 COVID-19 PFIZER VACCINE 2020-10-26 00:00:00 Completed [facility] SARS-COV-2 COVID-19 PFIZER VACCINE 2020-10-26 00:00:00 Completed [facility] SARS-COV-2 COVID-19 PFIZER VACCINE 2020-10-26 00:00:00 Completed [facility] SARS-COV-2 COVID-19 PFIZER VACCINE 2020-10-26 00:00:00 Completed [facility] SARS-COV-2 COVID-19 PFIZER VACCINE 2020-10-26 00:00:00 Completed [facility] SARS-COV-2 COVID-19 PFIZER VACCINE 2020-10-26 00:00:00 Completed [facility] SARS-COV-2 COVID-19 PFIZER VACCINE 2020-10-26 00:00:00 Completed [facility] SARS-COV-2 COVID-19 PFIZER VACCINE 2020-10-26 00:00:00 Completed [facility] SARS-COV-2 COVID-19 PFIZER VACCINE 2020-10-26 00:00:00 Completed [facility] SARS-COV-2 COVID-19 PFIZER VACCINE 2020-10-26 00:00:00 Completed [facility] SARS-COV-2 COVID-19 PFIZER VACCINE 2020-10-26 00:00:00 Completed [facility] SARS-COV-2 COVID-19 PFIZER VACCINE 2020-10-26 00:00:00 Completed [facility] SARS-COV-2 COVID-19 PFIZER VACCINE 2020-10-26 00:00:00 Completed [facility] SARS-COV-2 COVID-19 PFIZER VACCINE 2020-10-26 00:00:00 Completed [facility] SARS-COV-2 COVID-19 PFIZER VACCINE 2020-10-26 00:00:00 Completed [facility] SARS-COV-2 COVID-19 PFIZER VACCINE 2020-10-26 00:00:00 Completed [facility] SARS-COV-2 COVID-19 PFIZER VACCINE 2020-10-26 00:00:00 Completed [facility] SARS-COV-2 COVID-19 PFIZER VACCINE 2020-10-26 00:00:00 Completed [facility] SARS-COV-2 COVID-19 PFIZER VACCINE 2020-10-26 00:00:00 Completed [facility] SARS-COV-2 COVID-19 PFIZER VACCINE 2020-10-26 00:00:00 Completed [facility] SARS-COV-2 COVID-19 PFIZER VACCINE 2020-10-26 00:00:00 Completed [facility] SARS-COV-2 COVID-19 PFIZER VACCINE 2020-10-26 00:00:00 Completed [facility] SARS-COV-2 COVID-19 PFIZER VACCINE 2020-10-26 00:00:00 Completed [facility] SARS-COV-2 COVID-19 PFIZER VACCINE 2020-10-26 00:00:00 Completed [facility] SARS-COV-2 COVID-19 PFIZER VACCINE 2020-10-26 00:00:00 Completed [facility] SARS-COV-2 COVID-19 PFIZER VACCINE 2020-10-26 00:00:00 Completed [facility] SARS-COV-2 COVID-19 PFIZER VACCINE 2020-10-26 00:00:00 Completed [facility] SARS-COV-2 COVID-19 PFIZER VACCINE 2020-10-26 00:00:00 Completed [facility] SARS-COV-2 COVID-19 PFIZER VACCINE 2020-10-26 00:00:00 Completed [facility] SARS-COV-2 COVID-19 PFIZER VACCINE 2020-10-26 00:00:00 Completed [facility] SARS-COV-2 COVID-19 PFIZER VACCINE 2020-10-26 00:00:00 Completed [facility] SARS-COV-2 COVID-19 PFIZER VACCINE 2020-10-26 00:00:00 Completed [facility] SARS-COV-2 COVID-19 PFIZER VACCINE 2020-10-26 00:00:00 Completed [facility] SARS-COV-2 COVID-19 PFIZER VACCINE 2020-10-26 00:00:00 Completed [facility] SARS-COV-2 COVID-19 PFIZER VACCINE 2020-10-26 00:00:00 Completed [facility] SARS-COV-2 COVID-19 PFIZER VACCINE 2020-10-26 00:00:00 Completed [facility] SARS-COV-2 COVID-19 PFIZER VACCINE 2020-10-26 00:00:00 Completed [facility] SARS-COV-2 COVID-19 PFIZER VACCINE 2020-10-26 00:00:00 Completed [facility] SARS-COV-2 COVID-19 PFIZER VACCINE 2020-10-26 00:00:00 Completed [facility] SARS-COV-2 COVID-19 PFIZER VACCINE 2020-10-26 00:00:00 Completed [facility] SARS-COV-2 COVID-19 PFIZER VACCINE 2020-10-26 00:00:00 Completed [facility] SARS-COV-2 COVID-19 PFIZER VACCINE 2020-10-26 00:00:00 Completed [facility] SARS-COV-2 COVID-19 PFIZER VACCINE 2020-10-26 00:00:00 Completed [facility] SARS-COV-2 COVID-19 PFIZER VACCINE 2020-10-26 00:00:00 Completed [facility] SARS-COV-2 COVID-19 PFIZER VACCINE 2020-10-26 00:00:00 Completed [facility] SARS-COV-2 COVID-19 PFIZER VACCINE 2020-10-26 00:00:00 Completed [facility] SARS-COV-2 COVID-19 PFIZER VACCINE 2020-10-26 00:00:00 Completed [facility] SARS-COV-2 COVID-19 PFIZER VACCINE 2020-10-26 00:00:00 Completed [facility] SARS-COV-2 COVID-19 PFIZER VACCINE 2020-10-26 00:00:00 Completed [facility] SARS-COV-2 COVID-19 PFIZER VACCINE 2020-10-26 00:00:00 Completed [facility] SARS-COV-2 COVID-19 PFIZER VACCINE 2020-10-26 00:00:00 Completed [facility] SARS-COV-2 COVID-19 PFIZER VACCINE 2020-10-26 00:00:00 Completed [facility] SARS-COV-2 COVID-19 PFIZER VACCINE 2020-10-05 00:00:00 Completed [facility] SARS-COV-2 COVID-19 PFIZER VACCINE 2020-10-05 00:00:00 Completed [facility] SARS-COV-2 COVID-19 PFIZER VACCINE 2020-10-05 00:00:00 Completed [facility] SARS-COV-2 COVID-19 PFIZER VACCINE 2020-10-05 00:00:00 Completed [facility] SARS-COV-2 COVID-19 PFIZER VACCINE 2020-10-05 00:00:00 Completed [facility] SARS-COV-2 COVID-19 PFIZER VACCINE 2020-10-05 00:00:00 Completed [facility] SARS-COV-2 COVID-19 PFIZER VACCINE 2020-10-05 00:00:00 Completed [facility] SARS-COV-2 COVID-19 PFIZER VACCINE 2020-10-05 00:00:00 Completed [facility] SARS-COV-2 COVID-19 PFIZER VACCINE 2020-10-05 00:00:00 Completed [facility] SARS-COV-2 COVID-19 PFIZER VACCINE 2020-10-05 00:00:00 Completed [facility] SARS-COV-2 COVID-19 PFIZER VACCINE 2020-10-05 00:00:00 Completed [facility] SARS-COV-2 COVID-19 PFIZER VACCINE 2020-10-05 00:00:00 Completed [facility] SARS-COV-2 COVID-19 PFIZER VACCINE 2020-10-05 00:00:00 Completed [facility] SARS-COV-2 COVID-19 PFIZER VACCINE 2020-10-05 00:00:00 Completed [facility] SARS-COV-2 COVID-19 PFIZER VACCINE 2020-10-05 00:00:00 Completed [facility] SARS-COV-2 COVID-19 PFIZER VACCINE 2020-10-05 00:00:00 Completed [facility] SARS-COV-2 COVID-19 PFIZER VACCINE 2020-10-05 00:00:00 Completed [facility] SARS-COV-2 COVID-19 PFIZER VACCINE 2020-10-05 00:00:00 Completed [facility] SARS-COV-2 COVID-19 PFIZER VACCINE 2020-10-05 00:00:00 Completed [facility] SARS-COV-2 COVID-19 PFIZER VACCINE 2020-10-05 00:00:00 Completed [facility] SARS-COV-2 COVID-19 PFIZER VACCINE 2020-10-05 00:00:00 Completed [facility] SARS-COV-2 COVID-19 PFIZER VACCINE 2020-10-05 00:00:00 Completed [facility] SARS-COV-2 COVID-19 PFIZER VACCINE 2020-10-05 00:00:00 Completed [facility] SARS-COV-2 COVID-19 PFIZER VACCINE 2020-10-05 00:00:00 Completed [facility] SARS-COV-2 COVID-19 PFIZER VACCINE 2020-10-05 00:00:00 Completed [facility] SARS-COV-2 COVID-19 PFIZER VACCINE 2020-10-05 00:00:00 Completed [facility] SARS-COV-2 COVID-19 PFIZER VACCINE 2020-10-05 00:00:00 Completed [facility] SARS-COV-2 COVID-19 PFIZER VACCINE 2020-10-05 00:00:00 Completed [facility] SARS-COV-2 COVID-19 PFIZER VACCINE 2020-10-05 00:00:00 Completed [facility] SARS-COV-2 COVID-19 PFIZER VACCINE 2020-10-05 00:00:00 Completed [facility] SARS-COV-2 COVID-19 PFIZER VACCINE 2020-10-05 00:00:00 Completed [facility] SARS-COV-2 COVID-19 PFIZER VACCINE 2020-10-05 00:00:00 Completed [facility] SARS-COV-2 COVID-19 PFIZER VACCINE 2020-10-05 00:00:00 Completed [facility] SARS-COV-2 COVID-19 PFIZER VACCINE 2020-10-05 00:00:00 Completed [facility] SARS-COV-2 COVID-19 PFIZER VACCINE 2020-10-05 00:00:00 Completed [facility] SARS-COV-2 COVID-19 PFIZER VACCINE 2020-10-05 00:00:00 Completed [facility] SARS-COV-2 COVID-19 PFIZER VACCINE 2020-10-05 00:00:00 Completed [facility] SARS-COV-2 COVID-19 PFIZER VACCINE 2020-10-05 00:00:00 Completed [facility] SARS-COV-2 COVID-19 PFIZER VACCINE 2020-10-05 00:00:00 Completed [facility] SARS-COV-2 COVID-19 PFIZER VACCINE 2020-10-05 00:00:00 Completed [facility] SARS-COV-2 COVID-19 PFIZER VACCINE 2020-10-05 00:00:00 Completed [facility] SARS-COV-2 COVID-19 PFIZER VACCINE 2020-10-05 00:00:00 Completed [facility] SARS-COV-2 COVID-19 PFIZER VACCINE 2020-10-05 00:00:00 Completed [facility] SARS-COV-2 COVID-19 PFIZER VACCINE 2020-10-05 00:00:00 Completed [facility] SARS-COV-2 COVID-19 PFIZER VACCINE 2020-10-05 00:00:00 Completed [facility] SARS-COV-2 COVID-19 PFIZER VACCINE 2020-10-05 00:00:00 Completed [facility] SARS-COV-2 COVID-19 PFIZER VACCINE 2020-10-05 00:00:00 Completed [facility] SARS-COV-2 COVID-19 PFIZER VACCINE 2020-10-05 00:00:00 Completed [facility] SARS-COV-2 COVID-19 PFIZER VACCINE 2020-10-05 00:00:00 Completed [facility] SARS-COV-2 COVID-19 PFIZER VACCINE 2020-10-05 00:00:00 Completed [facility] SARS-COV-2 COVID-19 PFIZER VACCINE 2020-10-05 00:00:00 Completed [facility] SARS-COV-2 COVID-19 PFIZER VACCINE 2020-10-05 00:00:00 Completed [facility] SARS-COV-2 COVID-19 PFIZER VACCINE 2020-10-05 00:00:00 Completed [facility] SARS-COV-2 COVID-19 PFIZER VACCINE 2020-10-05 00:00:00 Completed [facility] SARS-COV-2 COVID-19 PFIZER VACCINE 2020-10-05 00:00:00 Completed [facility] SARS-COV-2 COVID-19 PFIZER VACCINE 2020-10-05 00:00:00 Completed [facility] SARS-COV-2 COVID-19 PFIZER VACCINE 2020-10-05 00:00:00 Completed [facility] SARS-COV-2 COVID-19 PFIZER VACCINE 2020-10-05 00:00:00 Completed [facility] SARS-COV-2 COVID-19 PFIZER VACCINE 2020-10-05 00:00:00 Completed [facility] SARS-COV-2 COVID-19 PFIZER VACCINE 2020-10-05 00:00:00 Completed [facility] SARS-COV-2 COVID-19 PFIZER VACCINE 2020-10-05 00:00:00 Completed [facility] SARS-COV-2 COVID-19 PFIZER VACCINE 2020-10-05 00:00:00 Completed [facility] SARS-COV-2 COVID-19 PFIZER VACCINE 2020-10-05 00:00:00 Completed [facility] TDAP 2020-06-20 00:00:00 Completed [facility] Influenza Virus Vaccine (3+ yrs) 2020-06-20 00:00:00 Completed [facility] Influenza Virus Vaccine 2020-06-20 00:00:00 Completed [facility] TD, NOS 2020-06-20 00:00:00 Completed [facility] Influenza Virus Vaccine Quad .5 mL IM 6+ MO (FLUZONE/FLULAVAL/F LUARIX) 2020-06-20 00:00:00 Completed [facility] Pneumococcal Polysaccharide, PPSV23 (PNEUMOVAX) 2020-06-20 00:00:00 Completed [facility] Influenza Virus Vaccine Quad .5 mL IM 6+ MO 2020-05-30 00:00:00 Completed [facility] Pneumococcal Polysaccharide, PPSV23 (PNEUMOVAX) 2020-05-30 00:00:00 Completed [facility] Influenza Virus Vaccine Quad .5 mL IM 6+ MO 2020-05-30 00:00:00 Completed [facility] Pneumococcal Polysaccharide, PPSV23 (PNEUMOVAX) 2020-05-30 00:00:00 Completed [facility] Influenza Virus Vaccine Quad .5 mL IM 6+ MO 2020-05-30 00:00:00 Completed [facility] Pneumococcal Polysaccharide, PPSV23 (PNEUMOVAX) 2020-05-30 00:00:00 Completed [facility] Influenza Virus Vaccine Quad .5 mL IM 6+ MO 2020-05-30 00:00:00 Completed [facility] Pneumococcal Polysaccharide, PPSV23 (PNEUMOVAX) 2020-05-30 00:00:00 Completed [facility] Influenza Virus Vaccine Quad .5 mL IM 6+ MO 2020-05-30 00:00:00 Completed [facility] Pneumococcal Polysaccharide, PPSV23 (PNEUMOVAX) 2020-05-30 00:00:00 Completed [facility] Influenza Virus Vaccine Quad .5 mL IM 6+ MO 2020-05-30 00:00:00 Completed [facility] Pneumococcal Polysaccharide, PPSV23 (PNEUMOVAX) 2020-05-30 00:00:00 Completed [facility] Influenza Virus Vaccine Quad .5 mL IM 6+ MO 2020-05-30 00:00:00 Completed [facility] Pneumococcal Polysaccharide, PPSV23 (PNEUMOVAX) 2020-05-30 00:00:00 Completed [facility] Influenza Virus Vaccine Quad .5 mL IM 6+ MO 2020-05-30 00:00:00 Completed [facility] Pneumococcal Polysaccharide, PPSV23 (PNEUMOVAX) 2020-05-30 00:00:00 Completed [facility] Influenza Virus Vaccine Quad .5 mL IM 6+ MO 2020-05-30 00:00:00 Completed [facility] Pneumococcal Polysaccharide, PPSV23 (PNEUMOVAX) 2020-05-30 00:00:00 Completed [facility] Influenza Virus Vaccine Quad .5 mL IM 6+ MO 2020-05-30 00:00:00 Completed [facility] Pneumococcal Polysaccharide, PPSV23 (PNEUMOVAX) 2020-05-30 00:00:00 Completed [facility] Influenza Virus Vaccine Quad .5 mL IM 6+ MO 2020-05-30 00:00:00 Completed [facility] Pneumococcal Polysaccharide, PPSV23 (PNEUMOVAX) 2020-05-30 00:00:00 Completed [facility] Influenza Virus Vaccine Quad .5 mL IM 6+ MO 2020-05-30 00:00:00 Completed [facility] Pneumococcal Polysaccharide, PPSV23 (PNEUMOVAX) 2020-05-30 00:00:00 Completed [facility] Influenza Virus Vaccine Quad .5 mL IM 6+ MO 2020-05-30 00:00:00 Completed [facility] Pneumococcal Polysaccharide, PPSV23 (PNEUMOVAX) 2020-05-30 00:00:00 Completed [facility] Influenza Virus Vaccine Quad .5 mL IM 6+ MO 2020-05-30 00:00:00 Completed [facility] Pneumococcal Polysaccharide, PPSV23 (PNEUMOVAX) 2020-05-30 00:00:00 Completed [facility] Influenza Virus Vaccine Quad .5 mL IM 6+ MO 2020-05-30 00:00:00 Completed [facility] Pneumococcal Polysaccharide, PPSV23 (PNEUMOVAX) 2020-05-30 00:00:00 Completed [facility] Influenza Virus Vaccine Quad .5 mL IM 6+ MO 2020-05-30 00:00:00 Completed [facility] Pneumococcal Polysaccharide, PPSV23 (PNEUMOVAX) 2020-05-30 00:00:00 Completed [facility] Influenza Virus Vaccine Quad .5 mL IM 6+ MO 2020-05-30 00:00:00 Completed [facility] Pneumococcal Polysaccharide, PPSV23 (PNEUMOVAX) 2020-05-30 00:00:00 Completed [facility] Influenza Virus Vaccine Quad .5 mL IM 6+ MO 2020-05-30 00:00:00 Completed [facility] Pneumococcal Polysaccharide, PPSV23 (PNEUMOVAX) 2020-05-30 00:00:00 Completed [facility] Influenza Virus Vaccine Quad .5 mL IM 6+ MO 2020-05-30 00:00:00 Completed [facility] Pneumococcal Polysaccharide, PPSV23 (PNEUMOVAX) 2020-05-30 00:00:00 Completed [facility] Influenza Virus Vaccine Quad .5 mL IM 6+ MO 2020-05-30 00:00:00 Completed [facility] Pneumococcal Polysaccharide, PPSV23 (PNEUMOVAX) 2020-05-30 00:00:00 Completed [facility] Influenza Virus Vaccine Quad .5 mL IM 6+ MO 2020-05-30 00:00:00 Completed [facility] Pneumococcal Polysaccharide, PPSV23 (PNEUMOVAX) 2020-05-30 00:00:00 Completed [facility] Influenza Virus Vaccine Quad .5 mL IM 6+ MO 2020-05-30 00:00:00 Completed [facility] Pneumococcal Polysaccharide, PPSV23 (PNEUMOVAX) 2020-05-30 00:00:00 Completed [facility] Influenza Virus Vaccine Quad .5 mL IM 6+ MO 2020-05-30 00:00:00 Completed [facility] Pneumococcal Polysaccharide, PPSV23 (PNEUMOVAX) 2020-05-30 00:00:00 Completed [facility] Influenza Virus Vaccine Quad .5 mL IM 6+ MO 2020-05-30 00:00:00 Completed [facility] Pneumococcal Polysaccharide, PPSV23 (PNEUMOVAX) 2020-05-30 00:00:00 Completed [facility] Influenza Virus Vaccine Quad .5 mL IM 6+ MO 2020-05-30 00:00:00 Completed [facility] Pneumococcal Polysaccharide, PPSV23 (PNEUMOVAX) 2020-05-30 00:00:00 Completed [facility] Influenza Virus Vaccine Quad .5 mL IM 6+ MO 2020-05-30 00:00:00 Completed [facility] Pneumococcal Polysaccharide, PPSV23 (PNEUMOVAX) 2020-05-30 00:00:00 Completed [facility] Influenza Virus Vaccine Quad .5 mL IM 6+ MO 2020-05-30 00:00:00 Completed [facility] Pneumococcal Polysaccharide, PPSV23 (PNEUMOVAX) 2020-05-30 00:00:00 Completed [facility] Influenza Virus Vaccine Quad .5 mL IM 6+ MO 2020-05-30 00:00:00 Completed [facility] Pneumococcal Polysaccharide, PPSV23 (PNEUMOVAX) 2020-05-30 00:00:00 Completed [facility] Influenza Virus Vaccine Quad .5 mL IM 6+ MO 2020-05-30 00:00:00 Completed [facility] Pneumococcal Polysaccharide, PPSV23 (PNEUMOVAX) 2020-05-30 00:00:00 Completed [facility] Influenza Virus Vaccine Quad .5 mL IM 6+ MO 2020-05-30 00:00:00 Completed [facility] Pneumococcal Polysaccharide, PPSV23 (PNEUMOVAX) 2020-05-30 00:00:00 Completed [facility] Influenza Virus Vaccine Quad .5 mL IM 6+ MO 2020-05-30 00:00:00 Completed [facility] Pneumococcal Polysaccharide, PPSV23 (PNEUMOVAX) 2020-05-30 00:00:00 Completed [facility] Influenza Virus Vaccine Quad .5 mL IM 6+ MO 2020-05-30 00:00:00 Completed [facility] Pneumococcal Polysaccharide, PPSV23 (PNEUMOVAX) 2020-05-30 00:00:00 Completed [facility] Influenza Virus Vaccine Quad .5 mL IM 6+ MO 2020-05-30 00:00:00 Completed [facility] Pneumococcal Polysaccharide, PPSV23 (PNEUMOVAX) 2020-05-30 00:00:00 Completed [facility] Influenza Virus Vaccine Quad .5 mL IM 6+ MO 2020-05-30 00:00:00 Completed [facility] Pneumococcal Polysaccharide, PPSV23 (PNEUMOVAX) 2020-05-30 00:00:00 Completed [facility] Influenza Virus Vaccine Quad .5 mL IM 6+ MO 2020-05-30 00:00:00 Completed [facility] Pneumococcal Polysaccharide, PPSV23 (PNEUMOVAX) 2020-05-30 00:00:00 Completed [facility] Influenza Virus Vaccine Quad .5 mL IM 6+ MO 2020-05-30 00:00:00 Completed [facility] Pneumococcal Polysaccharide, PPSV23 (PNEUMOVAX) 2020-05-30 00:00:00 Completed [facility] Influenza Virus Vaccine Quad .5 mL IM 6+ MO 2020-05-30 00:00:00 Completed [facility] Pneumococcal Polysaccharide, PPSV23 (PNEUMOVAX) 2020-05-30 00:00:00 Completed [facility] Influenza Virus Vaccine Quad .5 mL IM 6+ MO 2020-05-30 00:00:00 Completed [facility] Pneumococcal Polysaccharide, PPSV23 (PNEUMOVAX) 2020-05-30 00:00:00 Completed [facility] Influenza Virus Vaccine Quad .5 mL IM 6+ MO 2020-05-30 00:00:00 Completed [facility] Pneumococcal Polysaccharide, PPSV23 (PNEUMOVAX) 2020-05-30 00:00:00 Completed [facility] Influenza Virus Vaccine Quad .5 mL IM 6+ MO 2020-05-30 00:00:00 Completed [facility] Pneumococcal Polysaccharide, PPSV23 (PNEUMOVAX) 2020-05-30 00:00:00 Completed [facility] Influenza Virus Vaccine Quad .5 mL IM 6+ MO 2020-05-30 00:00:00 Completed [facility] Pneumococcal Polysaccharide, PPSV23 (PNEUMOVAX) 2020-05-30 00:00:00 Completed [facility] Influenza Virus Vaccine Quad .5 mL IM 6+ MO 2020-05-30 00:00:00 Completed [facility] Pneumococcal Polysaccharide, PPSV23 (PNEUMOVAX) 2020-05-30 00:00:00 Completed [facility] Influenza Virus Vaccine Quad .5 mL IM 6+ MO 2020-05-30 00:00:00 Completed [facility] Pneumococcal Polysaccharide, PPSV23 (PNEUMOVAX) 2020-05-30 00:00:00 Completed [facility] Influenza Virus Vaccine Quad .5 mL IM 6+ MO 2020-05-30 00:00:00 Completed [facility] Pneumococcal Polysaccharide, PPSV23 (PNEUMOVAX) 2020-05-30 00:00:00 Completed [facility] Influenza Virus Vaccine Quad .5 mL IM 6+ MO 2020-05-30 00:00:00 Completed [facility] Pneumococcal Polysaccharide, PPSV23 (PNEUMOVAX) 2020-05-30 00:00:00 Completed [facility] Influenza Virus Vaccine Quad .5 mL IM 6+ MO 2020-05-30 00:00:00 Completed [facility] Pneumococcal Polysaccharide, PPSV23 (PNEUMOVAX) 2020-05-30 00:00:00 Completed [facility] Influenza Virus Vaccine Quad .5 mL IM 6+ MO 2020-05-30 00:00:00 Completed [facility] Pneumococcal Polysaccharide, PPSV23 (PNEUMOVAX) 2020-05-30 00:00:00 Completed [facility] Influenza Virus Vaccine Quad .5 mL IM 6+ MO 2020-05-30 00:00:00 Completed [facility] Pneumococcal Polysaccharide, PPSV23 (PNEUMOVAX) 2020-05-30 00:00:00 Completed [facility] Influenza Virus Vaccine Quad .5 mL IM 6+ MO 2020-05-30 00:00:00 Completed [facility] Pneumococcal Polysaccharide, PPSV23 (PNEUMOVAX) 2020-05-30 00:00:00 Completed [facility] Influenza Virus Vaccine Quad .5 mL IM 6+ MO 2020-05-30 00:00:00 Completed [facility] Pneumococcal Polysaccharide, PPSV23 (PNEUMOVAX) 2020-05-30 00:00:00 Completed [facility] Influenza Virus Vaccine Quad .5 mL IM 6+ MO 2020-05-30 00:00:00 Completed [facility] Pneumococcal Polysaccharide, PPSV23 (PNEUMOVAX) 2020-05-30 00:00:00 Completed [facility] Influenza Virus Vaccine Quad .5 mL IM 6+ MO 2020-05-30 00:00:00 Completed [facility] Pneumococcal Polysaccharide, PPSV23 (PNEUMOVAX) 2020-05-30 00:00:00 Completed [facility] Influenza Virus Vaccine Quad .5 mL IM 6+ MO 2020-05-30 00:00:00 Completed [facility] Pneumococcal Polysaccharide, PPSV23 (PNEUMOVAX) 2020-05-30 00:00:00 Completed [facility] Influenza Virus Vaccine Quad .5 mL IM 6+ MO 2020-05-30 00:00:00 Completed [facility] Pneumococcal Polysaccharide, PPSV23 (PNEUMOVAX) 2020-05-30 00:00:00 Completed [facility] Influenza Virus Vaccine Quad .5 mL IM 6+ MO 2020-05-30 00:00:00 Completed [facility] Pneumococcal Polysaccharide, PPSV23 (PNEUMOVAX) 2020-05-30 00:00:00 Completed [facility] Influenza Virus Vaccine Quad .5 mL IM 6+ MO (FLUZONE/FLULAVAL/F LUARIX) 2020-05-30 00:00:00 Completed [facility] Pneumococcal Polysaccharide, PPSV23 (PNEUMOVAX) 2020-05-30 00:00:00 Completed [facility] Influenza Virus Vaccine Quad .5 mL IM 6+ MO (FLUZONE/FLULAVAL/F LUARIX) 2020-05-30 00:00:00 Completed [facility] Pneumococcal Polysaccharide, PPSV23 (PNEUMOVAX) 2020-05-30 00:00:00 Completed [facility] Influenza Virus Vaccine Quad .5 mL IM 6+ MO (FLUZONE/FLULAVAL/F LUARIX) 2020-05-30 00:00:00 Completed [facility] Pneumococcal Polysaccharide, PPSV23 (PNEUMOVAX) 2020-05-30 00:00:00 Completed [facility] Influenza Virus Vaccine Quad .5 mL IM 6+ MO (FLUZONE/FLULAVAL/F LUARIX) 2020-05-30 00:00:00 Completed [facility] Pneumococcal Polysaccharide, PPSV23 (PNEUMOVAX) 2020-05-30 00:00:00 Completed [facility] Influenza Virus Vaccine Quad .5 mL IM 6+ MO (FLUZONE/FLULAVAL/F LUARIX) 2020-05-30 00:00:00 Completed [facility] Pneumococcal Polysaccharide, PPSV23 (PNEUMOVAX) 2020-05-30 00:00:00 Completed [facility] Influenza Virus Vaccine Quad .5 mL IM 6+ MO (FLUZONE/FLULAVAL/F LUARIX) 2020-05-30 00:00:00 Completed [facility] Pneumococcal Polysaccharide, PPSV23 (PNEUMOVAX) 2020-05-30 00:00:00 Completed [facility] Influenza Virus Vaccine Quad .5 mL IM 6+ MO (FLUZONE/FLULAVAL/F LUARIX) 2020-05-30 00:00:00 Completed [facility] Pneumococcal Polysaccharide, PPSV23 (PNEUMOVAX) 2020-05-30 00:00:00 Completed [facility] Influenza Virus Vaccine Quad .5 mL IM 6+ MO (FLUZONE/FLULAVAL/F LUARIX) 2020-05-30 00:00:00 Completed [facility] Pneumococcal Polysaccharide, PPSV23 (PNEUMOVAX) 2020-05-30 00:00:00 Completed [facility] Td 2020-02-17 00:00:00 Completed [facility] Td 2020-02-17 00:00:00 Completed [facility] Td 2020-02-17 00:00:00 Completed [facility] Td 2020-02-17 00:00:00 Completed [facility] Td 2020-02-17 00:00:00 Completed [facility] Td 2020-02-17 00:00:00 Completed [facility] Td 2020-02-17 00:00:00 Completed [facility] Td 2020-02-17 00:00:00 Completed [facility] Td 2020-02-17 00:00:00 Completed [facility] Td 2020-02-17 00:00:00 Completed [facility] Td 2020-02-17 00:00:00 Completed [facility] Td 2020-02-17 00:00:00 Completed [facility] Td 2020-02-17 00:00:00 Completed [facility] Td 2020-02-17 00:00:00 Completed [facility] Td 2020-02-17 00:00:00 Completed [facility] TD, NOS 2020-02-17 00:00:00 Completed [facility] TD, NOS 2020-02-17 00:00:00 Completed [facility] TD, NOS 2020-02-17 00:00:00 Completed [facility] TD, NOS 2020-02-17 00:00:00 Completed [facility] TD, NOS 2020-02-17 00:00:00 Completed [facility] TD, NOS 2020-02-17 00:00:00 Completed [facility] TD, NOS 2020-02-17 00:00:00 Completed [facility] TD, NOS 2020-02-17 00:00:00 Completed [facility] TD, NOS 2020-02-17 00:00:00 Completed [facility] TD, NOS 2020-02-17 00:00:00 Completed [facility] TD, NOS 2020-02-17 00:00:00 Completed [facility] TD, NOS 2020-02-17 00:00:[address] [facility] TD, NOS 2020-02-17 00:00:00 Completed [facility] TD, NOS 2020-02-17 00:00:00 Completed [facility] TD, NOS 2020-02-17 00:00:00 Completed [facility] TD, NOS 2020-02-17 00:00:00 Completed [facility] TD, NOS 2020-02-17 00:00:00 Completed [facility] TD, NOS 2020-02-17 00:00:[address] [facility] TD, NOS 2020-02-17 00:00:[address] [facility] TD, NOS 2020-02-17 00:00:00 Completed [facility] TD, NOS 2020-02-17 00:00:00 Completed [facility] TD, NOS 2020-02-17 00:00:00 Completed [facility] TD, NOS 2020-02-17 00:00:00 Completed [facility] TD, NOS 2020-02-17 00:00:00 Completed [facility] TD, NOS 2020-02-17 00:00:00 Completed [facility] TD, NOS 2020-02-17 00:00:00 Completed [facility] TD, NOS 2020-02-17 00:00:00 Completed [facility] TD, NOS 2020-02-17 00:00:00 Completed [facility] TD, NOS 2020-02-17 00:00:00 Completed [facility] TD, NOS 2020-02-17 00:00:00 Completed [facility] TD, NOS 2020-02-17 00:00:00 Completed [facility] TD, NOS 2020-02-17 00:00:00 Completed [facility] TD, NOS 2020-02-17 00:00:00 Completed [facility] TD, NOS 2020-02-17 00:00:00 Completed [facility] TD, NOS 2020-02-17 00:00:00 Completed [facility] TD, NOS 2020-02-17 00:00:00 Completed [facility] TD, NOS 2020-02-17 00:00:00 Completed [facility] TD, NOS 2020-02-17 00:00:00 Completed [facility] TD, NOS 2020-02-17 00:00:00 Completed [facility] TD, NOS 2020-02-17 00:00:00 Completed [facility] TD, NOS 2020-02-17 00:00:00 Completed [facility] TD, NOS 2020-02-17 00:00:00 Completed [facility] TD, NOS 2020-02-17 00:00:00 Completed [facility] TD, NOS 2020-02-17 00:00:00 Completed [facility] TD, NOS 2020-02-17 00:00:00 Completed [facility] TD, NOS 2020-02-17 00:00:00 Completed [facility] TD, NOS 2020-02-17 00:00:00 Completed [facility] TD, NOS 2020-02-17 00:00:00 Completed [facility] Influenza Virus Vaccine (3+ yrs) 2016-06-05 00:00:00 Completed [facility] Influenza Virus Vaccine 2016-06-05 00:00:00 Completed [facility] Influenza Virus Vaccine (3+ yrs) 2016-06-05 00:00:00 Completed [facility] Influenza Virus Vaccine 2016-06-05 00:00:00 Completed [facility] Influenza Virus Vaccine (3+ yrs) 2016-06-05 00:00:00 Completed [facility] Influenza Virus Vaccine 2016-06-05 00:00:00 Completed [facility] Influenza Virus Vaccine (3+ yrs) 2016-06-05 00:00:00 Completed [facility] Influenza Virus Vaccine 2016-06-05 00:00:00 Completed [facility] Influenza Virus Vaccine (3+ yrs) 2016-06-05 00:00:00 Completed [facility] Influenza Virus Vaccine 2016-06-05 00:00:00 Completed [facility] Influenza Virus Vaccine (3+ yrs) 2016-06-05 00:00:00 Completed [facility] Influenza Virus Vaccine 2016-06-05 00:00:00 Completed [facility] Influenza Virus Vaccine (3+ yrs) 2016-06-05 00:00:00 Completed [facility] Influenza Virus Vaccine 2016-06-05 00:00:00 Completed [facility] Influenza Virus Vaccine (3+ yrs) 2016-06-05 00:00:00 Completed [facility] Influenza Virus Vaccine 2016-06-05 00:00:00 Completed [facility] Influenza Virus Vaccine (3+ yrs) 2016-06-05 00:00:00 Completed [facility] Influenza Virus Vaccine 2016-06-05 00:00:00 Completed [facility] Influenza Virus Vaccine (3+ yrs) 2016-06-05 00:00:00 Completed [facility] Influenza Virus Vaccine 2016-06-05 00:00:00 Completed [facility] Influenza Virus Vaccine (3+ yrs) 2016-06-05 00:00:00 Completed [facility] Influenza Virus Vaccine 2016-06-05 00:00:00 Completed [facility] Influenza Virus Vaccine (3+ yrs) 2016-06-05 00:00:00 Completed [facility] Influenza Virus Vaccine 2016-06-05 00:00:00 Completed [facility] Influenza Virus Vaccine (3+ yrs) 2016-06-05 00:00:00 Completed [facility] Influenza Virus Vaccine 2016-06-05 00:00:00 Completed [facility] Influenza Virus Vaccine (3+ yrs) 2016-06-05 00:00:00 Completed [facility] Influenza Virus Vaccine 2016-06-05 00:00:00 Completed [facility] Influenza Virus Vaccine (3+ yrs) 2016-06-05 00:00:00 Completed [facility] Influenza Virus Vaccine 2016-06-05 00:00:00 Completed [facility] Influenza Virus Vaccine (3+ yrs) 2016-06-05 00:00:00 Completed [facility] Influenza Virus Vaccine 2016-06-05 00:00:00 Completed [facility] Influenza Virus Vaccine (3+ yrs) 2016-06-05 00:00:00 Completed [facility] Influenza Virus Vaccine 2016-06-05 00:00:00 Completed [facility] Influenza Virus Vaccine (3+ yrs) 2016-06-05 00:00:00 Completed [facility] Influenza Virus Vaccine 2016-06-05 00:00:00 Completed [facility] Influenza Virus Vaccine (3+ yrs) 2016-06-05 00:00:00 Completed [facility] Influenza Virus Vaccine 2016-06-05 00:00:00 Completed [facility] Influenza Virus Vaccine (3+ yrs) 2016-06-05 00:00:00 Completed [facility] Influenza Virus Vaccine 2016-06-05 00:00:00 Completed [facility] Influenza Virus Vaccine (3+ yrs) 2016-06-05 00:00:00 Completed [facility] Influenza Virus Vaccine 2016-06-05 00:00:00 Completed [facility] Influenza Virus Vaccine (3+ yrs) 2016-06-05 00:00:00 Completed [facility] Influenza Virus Vaccine 2016-06-05 00:00:00 Completed [facility] Influenza Virus Vaccine (3+ yrs) 2016-06-05 00:00:00 Completed [facility] Influenza Virus Vaccine 2016-06-05 00:00:00 Completed [facility] Influenza Virus Vaccine (3+ yrs) 2016-06-05 00:00:00 Completed [facility] Influenza Virus Vaccine 2016-06-05 00:00:00 Completed [facility] Influenza Virus Vaccine (3+ yrs) 2016-06-05 00:00:00 Completed [facility] Influenza Virus Vaccine 2016-06-05 00:00:00 Completed [facility] Influenza Virus Vaccine (3+ yrs) 2016-06-05 00:00:00 Completed [facility] Influenza Virus Vaccine 2016-06-05 00:00:00 Completed [facility] Influenza Virus Vaccine (3+ yrs) 2016-06-05 00:00:00 Completed [facility] Influenza Virus Vaccine 2016-06-05 00:00:00 Completed [facility] Influenza Virus Vaccine (3+ yrs) 2016-06-05 00:00:00 Completed [facility] Influenza Virus Vaccine 2016-06-05 00:00:00 Completed [facility] Influenza Virus Vaccine (3+ yrs) 2016-06-05 00:00:00 Completed [facility] Influenza Virus Vaccine 2016-06-05 00:00:00 Completed [facility] Influenza Virus Vaccine (3+ yrs) 2016-06-05 00:00:00 Completed [facility] Influenza Virus Vaccine 2016-06-05 00:00:00 Completed [facility] Influenza Virus Vaccine (3+ yrs) 2016-06-05 00:00:00 Completed [facility] Influenza Virus Vaccine 2016-06-05 00:00:00 Completed [facility] Influenza Virus Vaccine (3+ yrs) 2016-06-05 00:00:00 Completed [facility] Influenza Virus Vaccine 2016-06-05 00:00:00 Completed [facility] Influenza Virus Vaccine (3+ yrs) 2016-06-05 00:00:00 Completed [facility] Influenza Virus Vaccine 2016-06-05 00:00:00 Completed [facility] Influenza Virus Vaccine (3+ yrs) 2016-06-05 00:00:00 Completed [facility] Influenza Virus Vaccine 2016-06-05 00:00:00 Completed [facility] Influenza Virus Vaccine (3+ yrs) 2016-06-05 00:00:00 Completed [facility] Influenza Virus Vaccine 2016-06-05 00:00:00 Completed [facility] Influenza Virus Vaccine (3+ yrs) 2016-06-05 00:00:00 Completed [facility] Influenza Virus Vaccine 2016-06-05 00:00:00 Completed [facility] Influenza Virus Vaccine (3+ yrs) 2016-06-05 00:00:00 Completed [facility] Influenza Virus Vaccine 2016-06-05 00:00:00 Completed [facility] Influenza Virus Vaccine (3+ yrs) 2016-06-05 00:00:00 Completed [facility] Influenza Virus Vaccine 2016-06-05 00:00:00 Completed [facility] Influenza Virus Vaccine (3+ yrs) 2016-06-05 00:00:00 Completed [facility] Influenza Virus Vaccine 2016-06-05 00:00:00 Completed [facility] Influenza Virus Vaccine (3+ yrs) 2016-06-05 00:00:00 Completed [facility] Influenza Virus Vaccine 2016-06-05 00:00:00 Completed [facility] Influenza Virus Vaccine (3+ yrs) 2016-06-05 00:00:00 Completed [facility] Influenza Virus Vaccine 2016-06-05 00:00:00 Completed [facility] Influenza Virus Vaccine (3+ yrs) 2016-06-05 00:00:00 Completed [facility] Influenza Virus Vaccine 2016-06-05 00:00:00 Completed [facility] Influenza Virus Vaccine (3+ yrs) 2016-06-05 00:00:00 Completed [facility] Influenza Virus Vaccine 2016-06-05 00:00:00 Completed [facility] Influenza Virus Vaccine (3+ yrs) 2016-06-05 00:00:00 Completed [facility] Influenza Virus Vaccine 2016-06-05 00:00:00 Completed [facility] Influenza Virus Vaccine (3+ yrs) 2016-06-05 00:00:00 Completed [facility] Influenza Virus Vaccine 2016-06-05 00:00:00 Completed [facility] Influenza Virus Vaccine (3+ yrs) 2016-06-05 00:00:00 Completed [facility] Influenza Virus Vaccine 2016-06-05 00:00:00 Completed [facility] Influenza Virus Vaccine (3+ yrs) 2016-06-05 00:00:00 Completed [facility] Influenza Virus Vaccine 2016-06-05 00:00:00 Completed [facility] Influenza Virus Vaccine (3+ yrs) 2016-06-05 00:00:00 Completed [facility] Influenza Virus Vaccine 2016-06-05 00:00:00 Completed [facility] Influenza Virus Vaccine (3+ yrs) 2016-06-05 00:00:00 Completed [facility] Influenza Virus Vaccine 2016-06-05 00:00:00 Completed [facility] Influenza Virus Vaccine (3+ yrs) 2016-06-05 00:00:00 Completed [facility] Influenza Virus Vaccine 2016-06-05 00:00:00 Completed [facility] Influenza Virus Vaccine (3+ yrs) 2016-06-05 00:00:00 Completed [facility] Influenza Virus Vaccine 2016-06-05 00:00:00 Completed [facility] Influenza Virus Vaccine (3+ yrs) 2016-06-05 00:00:00 Completed [facility] Influenza Virus Vaccine 2016-06-05 00:00:00 Completed [facility] Influenza Virus Vaccine (3+ yrs) 2016-06-05 00:00:00 Completed [facility] Influenza Virus Vaccine 2016-06-05 00:00:00 Completed [facility] Influenza Virus Vaccine (3+ yrs) 2016-06-05 00:00:00 Completed [facility] Influenza Virus Vaccine 2016-06-05 00:00:00 Completed [facility] Influenza Virus Vaccine (3+ yrs) 2016-06-05 00:00:00 Completed [facility] Influenza Virus Vaccine 2016-06-05 00:00:00 Completed [facility] Influenza Virus Vaccine (3+ yrs) 2016-06-05 00:00:00 Completed [facility] Influenza Virus Vaccine 2016-06-05 00:00:00 Completed [facility] Influenza Virus Vaccine (3+ yrs) 2016-06-05 00:00:00 Completed [facility] Influenza Virus Vaccine 2016-06-05 00:00:00 Completed [facility] Influenza Virus Vaccine (3+ yrs) 2016-06-05 00:00:00 Completed [facility] Influenza Virus Vaccine 2016-06-05 00:00:00 Completed [facility] Influenza Virus Vaccine (3+ yrs) 2016-06-05 00:00:00 Completed [facility] Influenza Virus Vaccine 2016-06-05 00:00:00 Completed [facility] Influenza Virus Vaccine (3+ yrs) 2016-06-05 00:00:00 Completed [facility] Influenza Virus Vaccine 2016-06-05 00:00:00 Completed [facility] Influenza Virus Vaccine (3+ yrs) 2016-06-05 00:00:00 Completed [facility] Influenza Virus Vaccine 2016-06-05 00:00:00 Completed [facility] Influenza Virus Vaccine (3+ yrs) 2016-06-05 00:00:00 Completed [facility] Influenza Virus Vaccine 2016-06-05 00:00:00 Completed [facility] Influenza Virus Vaccine (3+ yrs) 2016-06-05 00:00:00 Completed [facility] Influenza Virus Vaccine 2016-06-05 00:00:00 Completed [facility] TDAP 2016-02-28 00:00:00 Completed [facility] TDAP 2016-02-28 00:00:00 Completed [facility] TDAP 2016-02-28 00:00:00 Completed [facility] TDAP 2016-02-28 00:00:00 Completed [facility] TDAP 2016-02-28 00:00:00 Completed [facility] TDAP 2016-02-28 00:00:00 Completed [facility] TDAP 2016-02-28 00:00:00 Completed [facility] TDAP 2016-02-28 00:00:00 Completed [facility] TDAP 2016-02-28 00:00:00 Completed [facility] TDAP 2016-02-28 00:00:00 Completed [facility] TDAP 2016-02-28 00:00:00 Completed [facility] TDAP 2016-02-28 00:00:00 Completed [facility] TDAP 2016-02-28 00:00:00 Completed [facility] TDAP 2016-02-28 00:00:00 Completed [facility] TDAP 2016-02-28 00:00:00 Completed [facility] TDAP 2016-02-28 00:00:00 Completed [facility] TDAP 2016-02-28 00:00:00 Completed [facility] TDAP 2016-02-28 00:00:00 Completed [facility] TDAP 2016-02-28 00:00:00 Completed [facility] TDAP 2016-02-28 00:00:00 Completed [facility] TDAP 2016-02-28 00:00:00 Completed [facility] TDAP 2016-02-28 00:00:00 Completed [facility] TDAP 2016-02-28 00:00:00 Completed [facility] TDAP 2016-02-28 00:00:00 Completed [facility] TDAP 2016-02-28 00:00:00 Completed [facility] TDAP 2016-02-28 00:00:00 Completed [facility] TDAP 2016-02-28 00:00:00 Completed [facility] TDAP 2016-02-28 00:00:00 Completed [facility] TDAP 2016-02-28 00:00:00 Completed [facility] TDAP 2016-02-28 00:00:00 Completed [facility] TDAP 2016-02-28 00:00:00 Completed [facility] TDAP 2016-02-28 00:00:00 Completed [facility] TDAP 2016-02-28 00:00:00 Completed [facility] TDAP 2016-02-28 00:00:00 Completed [facility] TDAP 2016-02-28 00:00:00 Completed [facility] TDAP 2016-02-28 00:00:00 Completed [facility] TDAP 2016-02-28 00:00:00 Completed [facility] TDAP 2016-02-28 00:00:00 Completed [facility] TDAP 2016-02-28 00:00:00 Completed [facility] TDAP 2016-02-28 00:00:00 Completed [facility] TDAP 2016-02-28 00:00:00 Completed [facility] TDAP 2016-02-28 00:00:00 Completed [facility] TDAP 2016-02-28 00:00:00 Completed [facility] TDAP 2016-02-28 00:00:00 Completed [facility] TDAP 2016-02-28 00:00:00 Completed [facility] TDAP 2016-02-28 00:00:00 Completed [facility] TDAP 2016-02-28 00:00:00 Completed [facility] TDAP 2016-02-28 00:00:00 Completed [facility] TDAP 2016-02-28 00:00:00 Completed [facility] TDAP 2016-02-28 00:00:00 Completed [facility] TDAP 2016-02-28 00:00:00 Completed [facility] TDAP 2016-02-28 00:00:00 Completed [facility] TDAP 2016-02-28 00:00:00 Completed [facility] TDAP 2016-02-28 00:00:00 Completed [facility] TDAP 2016-02-28 00:00:00 Completed [facility] TDAP 2016-02-28 00:00:00 Completed [facility] TDAP 2016-02-28 00:00:00 Completed [facility] TDAP 2016-02-28 00:00:00 Completed [facility] TDAP 2016-02-28 00:00:00 Completed [facility] TDAP 2016-02-28 00:00:00 Completed [facility] TDAP 2016-02-28 00:00:00 Completed [facility] TDAP 2016-02-28 00:00:00 Completed [facility] TDAP 2016-02-28 00:00:00 Completed [facility] Influenza Virus Vaccine (3+ yrs) 2015-04-24 00:00:00 Completed [facility] Influenza Virus Vaccine 2015-04-24 00:00:00 Completed [facility] Influenza Virus Vaccine (3+ yrs) 2015-04-24 00:00:00 Completed [facility] Influenza Virus Vaccine 2015-04-24 00:00:00 Completed [facility] Influenza Virus Vaccine (3+ yrs) 2015-04-24 00:00:00 Completed [facility] Influenza Virus Vaccine 2015-04-24 00:00:00 Completed [facility] Influenza Virus Vaccine (3+ yrs) 2015-04-24 00:00:00 Completed [facility] Influenza Virus Vaccine 2015-04-24 00:00:00 Completed [facility] Influenza Virus Vaccine (3+ yrs) 2015-04-24 00:00:00 Completed [facility] Influenza Virus Vaccine 2015-04-24 00:00:00 Completed [facility] Influenza Virus Vaccine (3+ yrs) 2015-04-24 00:00:00 Completed [facility] Influenza Virus Vaccine 2015-04-24 00:00:00 Completed [facility] Influenza Virus Vaccine (3+ yrs) 2015-04-24 00:00:00 Completed [facility] Influenza Virus Vaccine 2015-04-24 00:00:00 Completed [facility] Influenza Virus Vaccine (3+ yrs) 2015-04-24 00:00:00 Completed [facility] Influenza Virus Vaccine 2015-04-24 00:00:00 Completed [facility] Influenza Virus Vaccine (3+ yrs) 2015-04-24 00:00:00 Completed [facility] Influenza Virus Vaccine 2015-04-24 00:00:00 Completed [facility] Influenza Virus Vaccine (3+ yrs) 2015-04-24 00:00:00 Completed [facility] Influenza Virus Vaccine 2015-04-24 00:00:00 Completed [facility] Influenza Virus Vaccine (3+ yrs) 2015-04-24 00:00:00 Completed [facility] Influenza Virus Vaccine 2015-04-24 00:00:00 Completed [facility] Influenza Virus Vaccine (3+ yrs) 2015-04-24 00:00:00 Completed [facility] Influenza Virus Vaccine 2015-04-24 00:00:00 Completed [facility] Influenza Virus Vaccine (3+ yrs) 2015-04-24 00:00:00 Completed [facility] Influenza Virus Vaccine 2015-04-24 00:00:00 Completed [facility] Influenza Virus Vaccine (3+ yrs) 2015-04-24 00:00:00 Completed [facility] Influenza Virus Vaccine 2015-04-24 00:00:00 Completed [facility] Influenza Virus Vaccine (3+ yrs) 2015-04-24 00:00:00 Completed [facility] Influenza Virus Vaccine 2015-04-24 00:00:00 Completed [facility] Influenza Virus Vaccine (3+ yrs) 2015-04-24 00:00:00 Completed [facility] Influenza Virus Vaccine 2015-04-24 00:00:00 Completed [facility] Influenza Virus Vaccine (3+ yrs) 2015-04-24 00:00:00 Completed [facility] Influenza Virus Vaccine 2015-04-24 00:00:00 Completed [facility] Influenza Virus Vaccine (3+ yrs) 2015-04-24 00:00:00 Completed [facility] Influenza Virus Vaccine 2015-04-24 00:00:00 Completed [facility] Influenza Virus Vaccine (3+ yrs) 2015-04-24 00:00:00 Completed [facility] Influenza Virus Vaccine 2015-04-24 00:00:00 Completed [facility] Influenza Virus Vaccine (3+ yrs) 2015-04-24 00:00:00 Completed [facility] Influenza Virus Vaccine 2015-04-24 00:00:00 Completed [facility] Influenza Virus Vaccine (3+ yrs) 2015-04-24 00:00:00 Completed [facility] Influenza Virus Vaccine 2015-04-24 00:00:00 Completed [facility] Influenza Virus Vaccine (3+ yrs) 2015-04-24 00:00:00 Completed [facility] Influenza Virus Vaccine 2015-04-24 00:00:00 Completed [facility] Influenza Virus Vaccine (3+ yrs) 2015-04-24 00:00:00 Completed [facility] Influenza Virus Vaccine 2015-04-24 00:00:00 Completed [facility] Influenza Virus Vaccine (3+ yrs) 2015-04-24 00:00:00 Completed [facility] Influenza Virus Vaccine 2015-04-24 00:00:00 Completed [facility] Influenza Virus Vaccine (3+ yrs) 2015-04-24 00:00:00 Completed [facility] Influenza Virus Vaccine 2015-04-24 00:00:00 Completed [facility] Influenza Virus Vaccine (3+ yrs) 2015-04-24 00:00:00 Completed [facility] Influenza Virus Vaccine 2015-04-24 00:00:00 Completed [facility] Influenza Virus Vaccine (3+ yrs) 2015-04-24 00:00:00 Completed [facility] Influenza Virus Vaccine 2015-04-24 00:00:00 Completed [facility] Influenza Virus Vaccine (3+ yrs) 2015-04-24 00:00:00 Completed [facility] Influenza Virus Vaccine 2015-04-24 00:00:00 Completed [facility] Influenza Virus Vaccine (3+ yrs) 2015-04-24 00:00:00 Completed [facility] Influenza Virus Vaccine 2015-04-24 00:00:00 Completed [facility] Influenza Virus Vaccine (3+ yrs) 2015-04-24 00:00:00 Completed [facility] Influenza Virus Vaccine 2015-04-24 00:00:00 Completed [facility] Influenza Virus Vaccine (3+ yrs) 2015-04-24 00:00:00 Completed [facility] Influenza Virus Vaccine 2015-04-24 00:00:00 Completed [facility] Influenza Virus Vaccine (3+ yrs) 2015-04-24 00:00:00 Completed [facility] Influenza Virus Vaccine 2015-04-24 00:00:00 Completed [facility] Influenza Virus Vaccine (3+ yrs) 2015-04-24 00:00:00 Completed [facility] Influenza Virus Vaccine 2015-04-24 00:00:00 Completed [facility] Influenza Virus Vaccine (3+ yrs) 2015-04-24 00:00:00 Completed [facility] Influenza Virus Vaccine 2015-04-24 00:00:00 Completed [facility] Influenza Virus Vaccine (3+ yrs) 2015-04-24 00:00:00 Completed [facility] Influenza Virus Vaccine 2015-04-24 00:00:00 Completed [facility] Influenza Virus Vaccine (3+ yrs) 2015-04-24 00:00:00 Completed [facility] Influenza Virus Vaccine 2015-04-24 00:00:00 Completed [facility] Influenza Virus Vaccine (3+ yrs) 2015-04-24 00:00:00 Completed [facility] Influenza Virus Vaccine 2015-04-24 00:00:00 Completed [facility] Influenza Virus Vaccine (3+ yrs) 2015-04-24 00:00:00 Completed [facility] Influenza Virus Vaccine 2015-04-24 00:00:00 Completed [facility] Influenza Virus Vaccine (3+ yrs) 2015-04-24 00:00:00 Completed [facility] Influenza Virus Vaccine 2015-04-24 00:00:00 Completed [facility] Influenza Virus Vaccine (3+ yrs) 2015-04-24 00:00:00 Completed [facility] Influenza Virus Vaccine 2015-04-24 00:00:00 Completed [facility] Influenza Virus Vaccine (3+ yrs) 2015-04-24 00:00:00 Completed [facility] Influenza Virus Vaccine 2015-04-24 00:00:00 Completed [facility] Influenza Virus Vaccine (3+ yrs) 2015-04-24 00:00:00 Completed [facility] Influenza Virus Vaccine 2015-04-24 00:00:00 Completed [facility] Influenza Virus Vaccine (3+ yrs) 2015-04-24 00:00:00 Completed [facility] Influenza Virus Vaccine 2015-04-24 00:00:00 Completed [facility] Influenza Virus Vaccine (3+ yrs) 2015-04-24 00:00:00 Completed [facility] Influenza Virus Vaccine 2015-04-24 00:00:00 Completed [facility] Influenza Virus Vaccine (3+ yrs) 2015-04-24 00:00:00 Completed [facility] Influenza Virus Vaccine 2015-04-24 00:00:00 Completed [facility] Influenza Virus Vaccine (3+ yrs) 2015-04-24 00:00:00 Completed [facility] Influenza Virus Vaccine 2015-04-24 00:00:00 Completed [facility] Influenza Virus Vaccine (3+ yrs) 2015-04-24 00:00:00 Completed [facility] Influenza Virus Vaccine 2015-04-24 00:00:00 Completed [facility] Influenza Virus Vaccine (3+ yrs) 2015-04-24 00:00:00 Completed [facility] Influenza Virus Vaccine 2015-04-24 00:00:00 Completed [facility] Influenza Virus Vaccine (3+ yrs) 2015-04-24 00:00:00 Completed [facility] Influenza Virus Vaccine 2015-04-24 00:00:00 Completed [facility] Influenza Virus Vaccine (3+ yrs) 2015-04-24 00:00:00 Completed [facility] Influenza Virus Vaccine 2015-04-24 00:00:00 Completed [facility] Influenza Virus Vaccine (3+ yrs) 2015-04-24 00:00:00 Completed [facility] Influenza Virus Vaccine 2015-04-24 00:00:00 Completed [facility] Influenza Virus Vaccine (3+ yrs) 2015-04-24 00:00:00 Completed [facility] Influenza Virus Vaccine 2015-04-24 00:00:00 Completed [facility] Influenza Virus Vaccine (3+ yrs) 2015-04-24 00:00:00 Completed [facility] Influenza Virus Vaccine 2015-04-24 00:00:00 Completed [facility] Influenza Virus Vaccine (3+ yrs) 2015-04-24 00:00:00 Completed [facility] Influenza Virus Vaccine 2015-04-24 00:00:00 Completed [facility] Influenza Virus Vaccine (3+ yrs) 2015-04-24 00:00:00 Completed [facility] Influenza Virus Vaccine 2015-04-24 00:00:00 Completed [facility] Influenza Virus Vaccine (3+ yrs) 2015-04-24 00:00:00 Completed [facility] Influenza Virus Vaccine 2015-04-24 00:00:00 Completed [facility] Influenza Virus Vaccine (3+ yrs) 2015-04-24 00:00:00 Completed [facility] Influenza Virus Vaccine 2015-04-24 00:00:00 Completed [facility] Influenza Virus Vaccine (3+ yrs) 2015-04-24 00:00:00 Completed [facility] Influenza Virus Vaccine 2015-04-24 00:00:00 Completed [facility] Influenza Virus Vaccine (3+ yrs) 2015-04-24 00:00:00 Completed [facility] Influenza Virus Vaccine 2015-04-24 00:00:00 Completed [facility] Influenza Virus Vaccine (3+ yrs) 2015-04-24 00:00:00 Completed [facility] Influenza Virus Vaccine 2015-04-24 00:00:00 Completed [facility] Influenza Virus Vaccine (3+ yrs) 2015-04-24 00:00:00 Completed [facility] Influenza Virus Vaccine 2015-04-24 00:00:00 Completed [facility] Influenza Virus Vaccine (3+ yrs) 2015-04-24 00:00:00 Completed [facility] Influenza Virus Vaccine 2015-04-24 00:00:00 Completed [facility] Influenza Virus Vaccine (3+ yrs) 2015-04-24 00:00:00 Completed [facility] Influenza Virus Vaccine 2015-04-24 00:00:00 Completed [facility] Influenza Virus Vaccine 2014-03-30 00:00:00 Completed [facility] Influenza Virus Vaccine 2014-03-30 00:00:00 Completed [facility] Influenza Virus Vaccine 2014-03-30 00:00:00 Completed [facility] Influenza Virus Vaccine 2014-03-30 00:00:00 Completed [facility] Influenza Virus Vaccine 2014-03-30 00:00:00 Completed [facility] Influenza Virus Vaccine 2014-03-30 00:00:00 Completed [facility] Influenza Virus Vaccine 2014-03-30 00:00:00 Completed [facility] Influenza Virus Vaccine 2014-03-30 00:00:00 Completed [facility] Influenza Virus Vaccine 2014-03-30 00:00:00 Completed [facility] Influenza Virus Vaccine 2014-03-30 00:00:00 Completed [facility] Influenza Virus Vaccine 2014-03-30 00:00:00 Completed [facility] Influenza Virus Vaccine 2014-03-30 00:00:00 Completed [facility] Influenza Virus Vaccine 2014-03-30 00:00:00 Completed [facility] Influenza Virus Vaccine 2014-03-30 00:00:00 Completed [facility] Influenza Virus Vaccine 2014-03-30 00:00:00 Completed [facility] Influenza Virus Vaccine 2014-03-30 00:00:00 Completed [facility] Influenza Virus Vaccine 2014-03-30 00:00:00 Completed [facility] Influenza Virus Vaccine 2014-03-30 00:00:00 Completed [facility] Influenza Virus Vaccine 2014-03-30 00:00:00 Completed [facility] Influenza Virus Vaccine 2014-03-30 00:00:00 Completed [facility] Influenza Virus Vaccine 2014-03-30 00:00:00 Completed [facility] Influenza Virus Vaccine 2014-03-30 00:00:00 Completed [facility] Influenza Virus Vaccine 2014-03-30 00:00:00 Completed [facility] Influenza Virus Vaccine 2014-03-30 00:00:00 Completed [facility] Influenza Virus Vaccine 2014-03-30 00:00:00 Completed [facility] Influenza Virus Vaccine 2014-03-30 00:00:00 Completed [facility] Influenza Virus Vaccine 2014-03-30 00:00:00 Completed [facility] Influenza Virus Vaccine 2014-03-30 00:00:00 Completed [facility] Influenza Virus Vaccine 2014-03-30 00:00:00 Completed [facility] Influenza Virus Vaccine 2014-03-30 00:00:00 Completed [facility] Influenza Virus Vaccine 2014-03-30 00:00:00 Completed [facility] Influenza Virus Vaccine 2014-03-30 00:00:00 Completed [facility] Influenza Virus Vaccine 2014-03-30 00:00:00 Completed [facility] Influenza Virus Vaccine 2014-03-30 00:00:00 Completed [facility] Influenza Virus Vaccine 2014-03-30 00:00:00 Completed [facility] Influenza Virus Vaccine 2014-03-30 00:00:00 Completed [facility] Influenza Virus Vaccine 2014-03-30 00:00:00 Completed [facility] Influenza Virus Vaccine 2014-03-30 00:00:00 Completed [facility] Influenza Virus Vaccine 2014-03-30 00:00:00 Completed [facility] Influenza Virus Vaccine 2014-03-30 00:00:00 Completed [facility] Influenza Virus Vaccine 2014-03-30 00:00:00 Completed [facility] Influenza Virus Vaccine 2014-03-30 00:00:00 Completed [facility] Influenza Virus Vaccine 2014-03-30 00:00:00 Completed [facility] Influenza Virus Vaccine 2014-03-30 00:00:00 Completed [facility] Influenza Virus Vaccine 2014-03-30 00:00:00 Completed [facility] Influenza Virus Vaccine 2014-03-30 00:00:00 Completed [facility] Influenza Virus Vaccine 2014-03-30 00:00:00 Completed [facility] Influenza Virus Vaccine 2014-03-30 00:00:00 Completed [facility] Influenza Virus Vaccine 2014-03-30 00:00:00 Completed [facility] Influenza Virus Vaccine 2014-03-30 00:00:00 Completed [facility] Influenza Virus Vaccine 2014-03-30 00:00:00 Completed [facility] Influenza Virus Vaccine 2014-03-30 00:00:00 Completed [facility] Influenza Virus Vaccine 2014-03-30 00:00:00 Completed [facility] Influenza Virus Vaccine 2014-03-30 00:00:00 Completed [facility] Influenza Virus Vaccine 2014-03-30 00:00:00 Completed [facility] Influenza Virus Vaccine 2014-03-30 00:00:00 Completed [facility] Influenza Virus Vaccine 2014-03-30 00:00:00 Completed [facility] Influenza Virus Vaccine 2014-03-30 00:00:00 Completed [facility] Influenza Virus Vaccine 2014-03-30 00:00:00 Completed [facility] Influenza Virus Vaccine 2014-03-30 00:00:00 Completed [facility] Influenza Virus Vaccine 2014-03-30 00:00:00 Completed [facility] Influenza Virus Vaccine 2014-03-30 00:00:00 Completed [facility] Influenza Virus Vaccine 2014-03-30 00:00:00 Completed [facility] Influenza Virus Vaccine 2013-05-03 00:00:00 Completed [facility] Influenza Virus Vaccine 2013-05-03 00:00:00 Completed [facility] Influenza Virus Vaccine 2013-05-03 00:00:00 Completed [facility] Influenza Virus Vaccine 2013-05-03 00:00:00 Completed [facility] Influenza Virus Vaccine 2013-05-03 00:00:00 Completed [facility] Influenza Virus Vaccine 2013-05-03 00:00:00 Completed [facility] Influenza Virus Vaccine 2013-05-03 00:00:00 Completed [facility] Influenza Virus Vaccine 2013-05-03 00:00:00 Completed [facility] Influenza Virus Vaccine 2013-05-03 00:00:00 Completed [facility] Influenza Virus Vaccine 2013-05-03 00:00:00 Completed [facility] Influenza Virus Vaccine 2013-05-03 00:00:00 Completed [facility] Influenza Virus Vaccine 2013-05-03 00:00:00 Completed [facility] Influenza Virus Vaccine 2013-05-03 00:00:00 Completed [facility] Influenza Virus Vaccine 2013-05-03 00:00:00 Completed [facility] Influenza Virus Vaccine 2013-05-03 00:00:00 Completed [facility] Influenza Virus Vaccine 2013-05-03 00:00:00 Completed [facility] Influenza Virus Vaccine 2013-05-03 00:00:00 Completed [facility] Influenza Virus Vaccine 2013-05-03 00:00:00 Completed [facility] Influenza Virus Vaccine 2013-05-03 00:00:00 Completed [facility] Influenza Virus Vaccine 2013-05-03 00:00:00 Completed [facility] Influenza Virus Vaccine 2013-05-03 00:00:00 Completed [facility] Influenza Virus Vaccine 2013-05-03 00:00:00 Completed [facility] Influenza Virus Vaccine 2013-05-03 00:00:00 Completed [facility] Influenza Virus Vaccine 2013-05-03 00:00:00 Completed [facility] Influenza Virus Vaccine 2013-05-03 00:00:00 Completed [facility] Influenza Virus Vaccine 2013-05-03 00:00:00 Completed [facility] Influenza Virus Vaccine 2013-05-03 00:00:00 Completed [facility] Influenza Virus Vaccine 2013-05-03 00:00:00 Completed [facility] Influenza Virus Vaccine 2013-05-03 00:00:00 Completed [facility] Influenza Virus Vaccine 2013-05-03 00:00:00 Completed [facility] Influenza Virus Vaccine 2013-05-03 00:00:00 Completed [facility] Influenza Virus Vaccine 2013-05-03 00:00:00 Completed [facility] Influenza Virus Vaccine 2013-05-03 00:00:00 Completed [facility] Influenza Virus Vaccine 2013-05-03 00:00:00 Completed [facility] Influenza Virus Vaccine 2013-05-03 00:00:00 Completed [facility] Influenza Virus Vaccine 2013-05-03 00:00:00 Completed [facility] Influenza Virus Vaccine 2013-05-03 00:00:00 Completed [facility] Influenza Virus Vaccine 2013-05-03 00:00:00 Completed [facility] Influenza Virus Vaccine 2013-05-03 00:00:00 Completed [facility] Influenza Virus Vaccine 2013-05-03 00:00:00 Completed [facility] Influenza Virus Vaccine 2013-05-03 00:00:00 Completed [facility] Influenza Virus Vaccine 2013-05-03 00:00:00 Completed [facility] Influenza Virus Vaccine 2013-05-03 00:00:00 Completed [facility] Influenza Virus Vaccine 2013-05-03 00:00:00 Completed [facility] Influenza Virus Vaccine 2013-05-03 00:00:00 Completed [facility] Influenza Virus Vaccine 2013-05-03 00:00:00 Completed [facility] Influenza Virus Vaccine 2013-05-03 00:00:00 Completed [facility] Influenza Virus Vaccine 2013-05-03 00:00:00 Completed [facility] Influenza Virus Vaccine 2013-05-03 00:00:00 Completed [facility] Influenza Virus Vaccine 2013-05-03 00:00:00 Completed [facility] Influenza Virus Vaccine 2013-05-03 00:00:00 Completed [facility] Influenza Virus Vaccine 2013-05-03 00:00:00 Completed [facility] Influenza Virus Vaccine 2013-05-03 00:00:00 Completed [facility] Influenza Virus Vaccine 2013-05-03 00:00:00 Completed [facility] Influenza Virus Vaccine 2013-05-03 00:00:00 Completed [facility] Influenza Virus Vaccine 2013-05-03 00:00:00 Completed [facility] Influenza Virus Vaccine 2013-05-03 00:00:00 Completed [facility] Influenza Virus Vaccine 2013-05-03 00:00:00 Completed [facility] Influenza Virus Vaccine 2013-05-03 00:00:00 Completed [facility] Influenza Virus Vaccine 2013-05-03 00:00:00 Completed [facility] Influenza Virus Vaccine 2013-05-03 00:00:00 Completed [facility] Influenza Virus Vaccine 2013-05-03 00:00:00 Completed [facility] Influenza Virus Vaccine 2013-05-03 00:00:00 Completed [facility] Influenza Virus Vaccine 2013-05-03 00:00:00 Completed Vital Signs Vital Name Observation Time Observation Value Comments S ource Systolic blood pressure 2025-01-01 15:01:00 121 mm[Hg] [facility] Diastolic blood pressure 2025-01-01 15:01:00 81 mm[Hg] [facility] Heart rate 2025-01-01 15:01:00 71 /min [facility] Body temperature 2025-01-01 15:01:00 36.61 Dariana [facility] Respiratory rate 2025-01-01 15:01:00 18 /min [facility] Body height 2025-01-01 15:01:00 175.3 cm [facility] Body weight 2025-01-01 15:01:00 125.601 kg [facility] BMI 2025-01-01 15:01:00 40.89 kg/m2 [facility] Oxygen saturation in Arterial blood by Pulse oximetry 2025-01-01 15:01:00 98 /min [facility] Systolic blood pressure 2024-10-25 13:07:00 129 mm[Hg] [facility] Diastolic blood pressure 2024-10-25 13:07:00 82 mm[Hg] [facility] Heart rate 2024-10-25 13:07:00 63 /min [facility] Body temperature 2024-10-25 13:07:00 36.61 Dariana [facility] Body height 2024-10-25 13:07:00 175.3 cm [facility] Body weight 2024-10-25 13:07:00 123.877 kg [facility] BMI 2024-10-25 13:07:00 40.33 kg/m2 [facility] Oxygen saturation in Arterial blood by Pulse oximetry 2024-10-25 13:07:00 98 /min [facility] Systolic blood pressure 2024-08-14 21:55:00 129 mm[Hg] [facility] Diastolic blood pressure 2024-08-14 21:55:00 81 mm[Hg] [facility] Heart rate 2024-08-14 21:54:00 82 /min [facility] Body temperature 2024-08-14 21:54:00 37.06 Dariana [facility] Respiratory rate 2024-08-14 21:54:00 18 /min [facility] Body height 2024-08-14 21:54:00 175.3 cm [facility] Body weight 2024-08-14 21:54:00 123.651 kg [facility] BMI 2024-08-14 21:54:00 40.26 kg/m2 [facility] Oxygen saturation in Arterial blood by Pulse oximetry 2024-08-14 21:54:00 97 /min [facility] Systolic blood pressure 2024-07-27 19:51:00 119 mm[Hg] [facility] Diastolic blood pressure 2024-07-27 19:51:00 75 mm[Hg] [facility] Heart rate 2024-07-27 19:51:00 91 [facility] Body temperature 2024-07-27 19:51:00 36.67 Dariana [facility] Body height 2024-07-27 19:51:00 175.3 cm [facility] Body weight 2024-07-27 19:51:00 126.1 kg [facility] BMI 2024-07-27 19:51:00 41.05 kg/m2 [facility] Oxygen saturation in Arterial blood by Pulse oximetry 2024-07-27 19:51:00 98 /min [facility] Systolic blood pressure 2024-05-31 19:38:00 127 mm[Hg] [facility] Diastolic blood pressure 2024-05-31 19:38:00 88 mm[Hg] [facility] Heart rate 2024-05-31 19:38:00 86 /min [facility] Body temperature 2024-05-31 19:38:00 36.83 Dariana [facility] Respiratory rate 2024-05-31 19:38:00 18 /min [facility] Body height 2024-05-31 19:38:00 175.3 cm [facility] Body weight 2024-05-31 19:38:00 122.471 kg [facility] BMI 2024-05-31 19:38:00 39.87 kg/m2 [facility] Oxygen saturation in Arterial blood by Pulse oximetry 2024-05-31 19:38:00 98 /min [facility] Systolic blood pressure 2024-04-26 18:29:00 131 mm[Hg] [facility] Diastolic blood pressure 2024-04-26 18:29:00 90 mm[Hg] [facility] Heart rate 2024-04-26 18:29:00 78 /min [facility] Body temperature 2024-04-26 18:29:00 36.83 Dariana [facility] Respiratory rate 2024-04-26 18:29:00 18 /min [facility] Body height 2024-04-26 18:29:00 175.3 cm [facility] Body weight 2024-04-26 18:29:00 125.147 kg [facility] BMI 2024-04-26 18:29:00 40.74 kg/m2 [facility] Oxygen saturation in Arterial blood by Pulse oximetry 2024-04-26 18:29:00 96 /min [facility] Systolic blood pressure 2024-04-04 18:42:00 111 mm[Hg] [facility] Diastolic blood pressure 2024-04-04 18:42:00 77 mm[Hg] [facility] Heart rate 2024-04-04 18:42:00 88 /min [facility] Body height 2024-04-04 18:42:00 175.3 cm [facility] Body weight 2024-04-04 18:42:00 125.147 kg [facility] BMI 2024-04-04 18:42:00 40.74 kg/m2 [facility] Oxygen saturation in Arterial blood by Pulse oximetry 2024-04-04 18:42:00 88 /min [facility] Systolic blood pressure 2024-04-03 19:33:00 123 mm[Hg] [facility] Diastolic blood pressure 2024-04-03 19:33:00 78 mm[Hg] [facility] Heart rate 2024-04-03 19:33:00 83 /min [facility] Body temperature 2024-04-03 19:33:00 36.83 Dariana [facility] Respiratory rate 2024-04-03 19:33:00 18 /min [facility] Body height 2024-04-03 19:33:00 175.3 cm [facility] Body weight 2024-04-03 19:33:00 122.29 kg [facility] BMI 2024-04-03 19:33:00 39.81 kg/m2 [facility] Oxygen saturation in Arterial blood by Pulse oximetry 2024-04-03 19:33:00 98 /min [facility] Systolic blood pressure 2024-03-24 19:41:00 123 mm[Hg] [facility] Diastolic blood pressure 2024-03-24 19:41:00 84 mm[Hg] [facility] Heart rate 2024-03-24 19:41:00 84 /min [facility] Body temperature 2024-03-24 19:41:00 37.17 Dariana [facility] Respiratory rate 2024-03-24 19:41:00 18 /min [facility] Body height 2024-03-24 19:41:00 175.3 cm [facility] Body weight 2024-03-24 19:41:00 124.83 kg [facility] BMI 2024-03-24 19:41:00 40.64 kg/m2 [facility] Oxygen saturation in Arterial blood by Pulse oximetry 2024-03-24 19:41:00 97 /min [facility] Systolic blood pressure 2024-02-22 20:24:00 127 mm[Hg] [facility] Diastolic blood pressure 2024-02-22 20:24:00 87 mm[Hg] [facility] Heart rate 2024-02-22 20:24:00 93 /[facility] Body temperature 2024-02-22 20:24:00 36.78 Dariana [facility] Respiratory rate 2024-02-22 20:24:00 18 /min [facility] Body height 2024-02-22 20:24:00 175.3 cm [facility] Body weight 2024-02-22 20:24:00 124.24 kg [facility] BMI 2024-02-22 20:24:00 40.45 kg/m2 [facility] Oxygen saturation in Arterial blood by Pulse oximetry 2024-02-22 20:24:00 97 /min [facility] Respiratory rate 2024-02-17 15:00:00 16 /min [facility] Body height 2024-02-17 15:00:00 175.3 cm [facility] Body weight 2024-02-17 15:00:00 121.564 kg [facility] BMI 2024-02-17 15:00:00 39.58 kg/m2 [facility] Systolic blood pressure 2024-01-31 19:32:00 125 mm[Hg] [facility] Diastolic blood pressure 2024-01-31 19:32:00 85 mm[Hg] [facility] Heart rate 2024-01-31 19:32:00 74 /min [facility] Body temperature 2024-01-31 19:32:00 37 Dariana [facility] Respiratory rate 2024-01-31 19:32:00 18 /min [facility] Body height 2024-01-31 19:32:00 175.3 cm [facility] Body weight 2024-01-31 19:32:00 121.972 kg [facility] BMI 2024-01-31 19:32:00 39.71 kg/m2 [facility] Oxygen saturation in Arterial blood by Pulse oximetry 2024-01-31 19:32:00 98 /min [facility] Systolic blood pressure 2024-01-26 19:55:00 123 mm[Hg] [facility] Diastolic blood pressure 2024-01-26 19:55:00 84 mm[Hg] [facility] Heart rate 2024-01-26 19:55:00 94 /min [facility] Respiratory rate 2024-01-26 19:55:00 16 /min [facility] Body height 2024-01-26 19:55:00 175.3 cm [facility] Body weight 2024-01-26 19:55:00 122.471 kg [facility] BMI 2024-01-26 19:55:00 39.87 kg/m2 Univ [facility] Systolic blood pressure 2024-01-19 14:53:00 125 mm[Hg] [facility] Diastolic blood pressure 2024-01-19 14:53:00 85 mm[Hg] [facility] Heart rate 2024-01-19 14:53:00 73 /min [facility] Body temperature 2024-01-19 14:53:00 36.56 Dariana [facility] Respiratory rate 2024-01-19 14:53:00 17 /min [facility] Body weight 2024-01-19 14:53:00 123.378 kg [facility] BMI 2024-01-19 14:53:00 40.17 kg/m2 [facility] Oxygen saturation in Arterial blood by Pulse oximetry 2024-01-19 14:53:00 96 /min [facility] Systolic blood pressure 2024-01-06 12:15:00 124 mm[Hg] [facility] Diastolic blood pressure 2024-01-06 12:15:00 79 mm[Hg] [facility] Heart rate 2024-01-06 12:15:00 69 /min [facility] Body height 2024-01-06 12:15:00 175.3 cm [facility] Body weight 2024-01-06 12:15:00 124.694 kg [facility] BMI 2024-01-06 12:15:00 40.60 kg/m2 [facility] Oxygen saturation in Arterial blood by Pulse oximetry 2024-01-06 12:15:00 98 /min [facility] Systolic blood pressure 2023-12-17 15:26:00 121 mm[Hg] [facility] Diastolic blood pressure 2023-12-17 15:26:00 78 mm[Hg] [facility] Heart rate 2023-12-17 15:26:00 80 /min [facility] Body temperature 2023-12-17 15:26:00 36.78 Dariana [facility] Respiratory rate 2023-12-17 15:26:00 18 /min [facility] Body height 2023-12-17 15:26:00 175.3 cm [facility] Body weight 2023-12-17 15:26:00 127.551 kg Univ [facility] BMI 2023-12-17 15:26:00 41.53 kg/m2 [facility] Oxygen saturation in Arterial blood by Pulse oximetry 2023-12-17 15:26:00 96 /min [facility] Systolic blood pressure 2023-11-16 18:28:00 129 mm[Hg] [facility] Diastolic blood pressure 2023-11-16 18:28:00 84 mm[Hg] [facility] Heart rate 2023-11-16 18:28:00 72 /min [facility] Body temperature 2023-11-16 18:28:00 36.72 Dariana [facility] Respiratory rate 2023-11-16 18:28:00 18 /min [facility] Body height 2023-11-16 18:28:00 175.3 cm [facility] Body weight 2023-11-16 18:28:00 122.018 kg [facility] BMI 2023-11-16 18:28:00 39.72 kg/m2 [facility] Oxygen saturation in Arterial blood by Pulse oximetry 2023-11-16 18:28:00 97 /min [facility] Systolic blood pressure 2023-11-09 18:45:00 136 mm[Hg] [facility] Diastolic blood pressure 2023-11-09 18:45:00 79 mm[Hg] [facility] Heart rate 2023-11-09 18:44:00 82 /min [facility] Body temperature 2023-11-09 18:44:00 36.33 Dariana [facility] Respiratory rate 2023-11-09 18:44:00 14 /min [facility] Body weight 2023-11-09 18:44:00 122.471 kg [facility] BMI 2023-11-09 18:44:00 39.87 kg/m2 [facility] Oxygen saturation in Arterial blood by Pulse oximetry 2023-11-09 18:44:00 97 /min [facility] Systolic blood pressure 2023-05-24 14:05:00 107 mm[Hg] [facility] Diastolic blood pressure 2023-05-24 14:05:00 72 mm[Hg] [facility] Heart rate 2023-05-24 14:05:00 68 /min [facility] Body height 2023-05-24 14:05:00 175.3 cm [facility] Body weight 2023-05-24 14:05:00 120.657 kg [facility] BMI 2023-05-24 14:05:00 39.28 kg/m2 [facility] Oxygen saturation in Arterial blood by Pulse oximetry 2023-05-24 14:05:00 97 /min [facility] Systolic blood pressure 2023-05-10 18:16:00 129 mm[Hg] [facility] Diastolic blood pressure 2023-05-10 18:16:00 86 mm[Hg] [facility] Heart rate 2023-05-10 18:16:00 78 /min [facility] Respiratory rate 2023-05-10 18:16:00 18 /min [facility] Body height 2023-05-10 18:16:00 175.3 cm [facility] Body weight 2023-05-10 18:16:00 120.294 kg [facility] BMI 2023-05-10 18:16:00 39.16 kg/m2 [facility] Oxygen saturation in Arterial blood by Pulse oximetry 2023-05-10 18:16:00 98 /min [facility] Systolic blood pressure 2023-03-30 16:40:00 116 mm[Hg] [facility] Diastolic blood pressure 2023-03-30 16:40:00 76 mm[Hg] [facility] Heart rate 2023-03-30 16:40:00 63 /min [facility] Body height 2023-03-30 16:40:00 175.3 cm [facility] Body weight 2023-03-30 16:40:00 118.842 kg [facility] BMI 2023-03-30 16:40:00 38.69 kg/m2 [facility] Oxygen saturation in Arterial blood by Pulse oximetry 2023-03-30 16:40:00 99 /min [facility] Systolic blood pressure 2023-03-26 18:33:00 113 mm[Hg] [facility] Diastolic blood pressure 2023-03-26 18:33:00 77 mm[Hg] [facility] Heart rate 2023-03-26 18:33:00 74 /min [facility] Body height 2023-03-26 18:33:00 175.3 cm [facility] Body weight 2023-03-26 18:33:00 118.842 kg [facility] BMI 2023-03-26 18:33:00 38.69 kg/m2 Univ [facility] Oxygen saturation in Arterial blood by Pulse oximetry 2023-03-26 18:33:00 96 /min [facility] Systolic blood pressure 2023-03-24 15:26:00 130 mm[Hg] [facility] Diastolic blood pressure 2023-03-24 15:26:00 84 mm[Hg] [facility] Heart rate 2023-03-24 15:26:00 67 /min [facility] Respiratory rate 2023-03-24 15:26:00 18 /min [facility] Body height 2023-03-24 15:26:00 175.3 cm [facility] Body weight 2023-03-24 15:26:00 118.752 kg [facility] BMI 2023-03-24 15:26:00 38.66 kg/m2 [facility] Oxygen saturation in Arterial blood by Pulse oximetry 2023-03-24 15:26:00 97 /min [facility] Systolic blood pressure 2023-03-19 13:56:41 115 mm[Hg] [facility] Diastolic blood pressure 2023-03-19 13:56:41 74 mm[Hg] [facility] Heart rate 2023-03-19 12:58:00 64 /min [facility] Body temperature 2023-03-19 12:58:00 36.39 Dariana [facility] Respiratory rate 2023-03-19 12:58:00 20 /min [facility] Oxygen saturation in Arterial blood by Pulse oximetry 2023-03-19 12:58:00 100 /min [facility] Systolic blood pressure 2023-02-22 01:51:00 143 mm[Hg] [facility] Diastolic blood pressure 2023-02-22 01:51:00 76 mm[Hg] [facility] Heart rate 2023-02-22 01:49:00 80 /min [facility] Body temperature 2023-02-22 01:49:00 37.22 Dariana [facility] Respiratory rate 2023-02-22 01:49:00 12 /min [facility] Body height 2023-02-22 01:49:00 175.3 cm Univ [facility] Body weight 2023-02-22 01:49:00 122.018 kg [facility] BMI 2023-02-22 01:49:00 39.72 kg/m2 [facility] Oxygen saturation in Arterial blood by Pulse oximetry 2023-02-22 01:49:00 96 /min [facility] Systolic blood pressure 2023-02-16 18:57:00 128 mm[Hg] [facility] Diastolic blood pressure 2023-02-16 18:57:00 80 mm[Hg] [facility] Heart rate 2023-02-16 18:57:00 87 /min [facility] Respiratory rate 2023-02-16 18:57:00 18 /min [facility] Body height 2023-02-16 18:57:00 175.3 cm Univ [facility] Body weight 2023-02-16 18:57:00 121.882 kg [facility] BMI 2023-02-16 18:57:00 39.68 kg/m2 [facility] Oxygen saturation in Arterial blood by Pulse oximetry 2023-02-16 18:57:00 95 /min [facility] Systolic blood pressure 2022-12-15 18:24:00 124 mm[Hg] [facility] Diastolic blood pressure 2022-12-15 18:24:00 79 mm[Hg] [facility] Heart rate 2022-12-15 18:24:00 74 /min [facility] Body temperature 2022-12-15 18:24:00 36.72 Dariana [facility] Body height 2022-12-15 18:24:00 175.3 cm [facility] Body weight 2022-12-15 18:24:00 121.564 kg [facility] BMI 2022-12-15 18:24:00 39.58 kg/m2 [facility] Oxygen saturation in Arterial blood by Pulse oximetry 2022-12-15 18:24:00 97 /min [facility] Systolic blood pressure 2022-12-09 14:52:00 125 mm[Hg] [facility] Diastolic blood pressure 2022-12-09 14:52:00 80 mm[Hg] [facility] Heart rate 2022-12-09 14:52:00 63 /min [facility] Respiratory rate 2022-12-09 14:52:00 12 /min [facility] Body height 2022-12-09 14:52:00 175.3 cm Univ [facility] Body weight 2022-12-09 14:52:00 121.564 kg [facility] BMI 2022-12-09 14:52:00 39.58 kg/m2 [facility] Oxygen saturation in Arterial blood by Pulse oximetry 2022-12-09 14:52:00 97 /min [facility] Systolic blood pressure 2022-11-13 19:39:00 129 mm[Hg] [facility] Diastolic blood pressure 2022-11-13 19:39:00 87 mm[Hg] [facility] Heart rate 2022-11-13 19:39:00 79 /min [facility] Body height 2022-11-13 19:33:00 175.3 cm [facility] Body weight 2022-11-13 19:33:00 121.564 kg [facility] BMI 2022-11-13 19:33:00 39.58 kg/m2 [facility] Oxygen saturation in Arterial blood by Pulse oximetry 2022-11-13 19:33:00 95 /min [facility] Systolic blood pressure 2022-11-04 18:21:00 122 mm[Hg] [facility] Diastolic blood pressure 2022-11-04 18:21:00 85 mm[Hg] [facility] Heart rate 2022-11-04 18:21:00 67 /min [facility] Body temperature 2022-11-04 18:21:00 36.94 Dariana [facility] Respiratory rate 2022-11-04 18:21:00 17 /min [facility] Body height 2022-11-04 18:21:00 175.3 cm [facility] Body weight 2022-11-04 18:21:00 121.246 kg [facility] BMI 2022-11-04 18:21:00 39.47 kg/m2 [facility] Oxygen saturation in Arterial blood by Pulse oximetry 2022-11-04 18:21:00 96 /min [facility] Systolic blood pressure 2022-10-16 19:26:00 116 mm[Hg] [facility] Diastolic blood pressure 2022-10-16 19:26:00 78 mm[Hg] [facility] Heart rate 2022-10-16 19:26:00 85 /min [facility] Body temperature 2022-10-16 19:26:00 36.61 Dariana [facility] Body height 2022-10-16 19:26:00 175.3 cm Univ [facility] Body weight 2022-10-16 19:26:00 122.925 kg [facility] BMI 2022-10-16 19:26:00 40.02 kg/m2 [facility] Oxygen saturation in Arterial blood by Pulse oximetry 2022-10-16 19:26:00 96 /min [facility] Systolic blood pressure 2022-09-09 20:33:00 115 mm[Hg] [facility] Diastolic blood pressure 2022-09-09 20:33:00 61 mm[Hg] [facility] Heart rate 2022-09-09 20:33:00 90 /min [facility] Body weight 2022-09-09 20:33:00 123.469 kg Univ [facility] BMI 2022-09-09 20:33:00 40.20 kg/m2 [facility] Oxygen saturation in Arterial blood by Pulse oximetry 2022-09-09 20:33:00 97 /min [facility] Systolic blood pressure 2022-09-09 16:13:00 112 mm[Hg] [facility] Diastolic blood pressure 2022-09-09 16:13:00 71 mm[Hg] [facility] Heart rate 2022-09-09 16:13:00 76 /min [facility] Respiratory rate 2022-09-09 16:13:00 12 /min [facility] Body height 2022-09-09 16:13:00 175.3 cm Univ [facility] Body weight 2022-09-09 16:13:00 125.193 kg [facility] BMI 2022-09-09 16:13:00 40.76 kg/m2 [facility] Oxygen saturation in Arterial blood by Pulse oximetry 2022-09-09 16:13:00 98 /min [facility] Systolic blood pressure 2022-08-17 17:21:00 124 mm[Hg] [facility] Diastolic blood pressure 2022-08-17 17:21:00 82 mm[Hg] [facility] Heart rate 2022-08-17 17:21:00 76 /min [facility] Body temperature 2022-08-17 17:21:00 36.67 Dariana [facility] Body height 2022-08-17 17:21:00 175.3 cm [facility] 2022-08-17 17:21:00 125.193 kg [facility] BMI 2022-08-17 17:21:00 40.76 kg/m2 [facility] Oxygen saturation in Arterial blood by Pulse oximetry 2022-08-17 17:21:00 96 /min [facility] Systolic blood pressure 2022-08-14 16:00:00 136 mm[Hg] [facility] Diastolic blood pressure 2022-08-14 16:00:00 84 mm[Hg] [facility] Heart rate 2022-08-14 16:00:00 72 /min [facility] 2022-08-14 16:00:00 16 /min [facility] Body temperature 2022-08-14 14:17:00 36.72 Dariana [facility] Body height 2022-08-14 14:17:00 175.3 cm [facility] weight 2022-08-14 14:17:00 122.471 kg Univ [facility] BMI 2022-08-14 14:17:00 39.87 kg/m2 [facility] Oxygen saturation in Arterial blood by Pulse oximetry 2022-08-14 14:17:00 99 /min [facility] Systolic blood pressure 2022-08-12 21:06:00 121 mm[Hg] [facility] Diastolic blood pressure 2022-08-12 21:06:00 75 mm[Hg] [facility] Heart rate 2022-08-12 21:06:00 74 /min [facility] 2022-08-12 21:06:00 12 /min [facility] Body height 2022-08-12 21:06:00 175.3 cm [facility] Body weight 2022-08-12 21:06:00 123.378 kg [facility] BMI 2022-08-12 21:06:00 40.17 kg/m2 [facility] Oxygen saturation in Arterial blood by Pulse oximetry 2022-08-12 21:06:00 98 /min [facility] Systolic blood pressure 2022-07-15 21:37:00 132 mm[Hg] [facility] Diastolic blood pressure 2022-07-15 21:37:00 85 mm[Hg] [facility] Heart rate 2022-07-15 21:32:00 90 /min [facility] Body height 2022-07-15 21:32:00 175.3 cm [facility] Body weight 2022-07-15 21:32:00 123.152 kg [facility] BMI 2022-07-15 21:32:00 40.09 kg/m2 [facility] Oxygen saturation in Arterial blood by Pulse oximetry 2022-07-15 21:32:00 96 /min [facility] Body height 2022-07-06 16:04:00 175.3 cm [facility] Body weight 2022-07-06 16:04:00 122.471 kg [facility] BMI 2022-07-06 16:04:00 39.87 kg/m2 [facility] Systolic blood pressure 2022-06-15 14:24:00 117 mm[Hg] [facility] Diastolic blood pressure 2022-06-15 14:24:00 77 mm[Hg] [facility] Heart rate 2022-06-15 14:24:00 69 /[facility] Body height 2022-06-15 14:24:00 175.3 cm [facility] Body weight 2022-06-15 14:24:00 123.378 kg [facility] BMI 2022-06-15 14:24:00 40.17 kg/m2 [facility] Oxygen saturation in Arterial blood by Pulse oximetry 2022-06-15 14:24:00 96 /min [facility] Systolic blood pressure 2022-05-15 15:30:00 111 mm[Hg] [facility] Diastolic blood pressure 2022-05-15 15:30:00 74 mm[Hg] [facility] Heart rate 2022-05-15 15:30:00 82 /min [facility] Body height 2022-05-15 15:30:00 175.3 cm Univ [facility] Body weight 2022-05-15 15:30:00 120.657 kg Univ [facility] BMI 2022-05-15 15:30:00 39.28 kg/m2 [facility] Oxygen saturation in Arterial blood by Pulse oximetry 2022-05-15 15:30:00 97 /min [facility] Systolic blood pressure 2022-04-15 18:30:00 124 mm[Hg] [facility] Diastolic blood pressure 2022-04-15 18:30:00 84 mm[Hg] [facility] Heart rate 2022-04-15 18:30:00 78 /min Un[facility] Body temperature 2022-04-15 18:30:00 36.56 Dariana [facility] Body height 2022-04-15 18:30:00 175.3 cm [facility] Body weight 2022-04-15 18:30:00 120.203 kg [facility] BMI 2022-04-15 18:30:00 39.13 kg/m2 [facility] Oxygen saturation in Arterial blood by Pulse oximetry 2022-04-15 18:30:00 96 /min [facility] Systolic blood pressure 2022-03-31 18:19:00 132 mm[Hg] [facility] Diastolic blood pressure 2022-03-31 18:19:00 86 mm[Hg] [facility] Heart rate 2022-03-31 18:19:00 76 /min Un[facility] Body height 2022-03-31 18:19:00 175.3 cm [facility] Body weight 2022-03-31 18:19:00 120.974 kg [facility] BMI 2022-03-31 18:19:00 39.38 kg/m2 [facility] Oxygen saturation in Arterial blood by Pulse oximetry 2022-03-31 18:19:00 98 /min [facility] Procedures Procedure Date / Time Performed Performing Clinician Source XR ANKLE 3+ VW RIGHT 2025-01-01 16:24:00 Remy Harp [facility] ABDOMEN LIMITED 2024-10-31 14:32:38 [facility]FF 2024-10-25 13:51:00 Remy Harp [facility] FLU VACC ([id number]), 6 MO-64 YRS, .5ML, IM, TIV (FLUCELVAX) 2024-03-24 19:53:17 Remy Harp [facility] MR LUMBAR SPINE WO CONTRAST 2024-02-01 16:32:50 Remy Harp [facility] POCT MOLECULAR STREP 2024-01-19 15:25:00 Suzan, Leticia martin [facility] POCT SARS-COV-2 ANTIGEN (BINAX NOW) 2024-01-19 14:58:00 Noel Pruitt [facility] ABDOMEN LIMITED 2023-06-23 19:20:00 [facility] TRANSTHORACIC ECHO (TTE) COMPLETE W/ CONTRAST 2023-06-07 21:43:25 Chau [facility] CT ANGIOGRAPHY CORONARIES WITH CARDIAC CALCIUM SCORE 2023-05-26 16:25:11 Chau [facility] HB CREATININE SERUM/BLOOD FOR IMAGING 2023-05-26 15:39:00 Chau [facility] ASSIGNMENT OF BENEFITS 2023-05-24 13:49:52 Docto r Unassigned, Opal [facility] FLU VACC ([id number]), 6 MO-64 YRS, .5ML, IM, QUAD (FLUCELVAX) 2023-05-10 18:20:42 Chau [facility] ASSIGNMENT OF BENEFITS 2023-03-19 14:11:57 Docto r Unassigned, Opal [facility] XR CHEST 2 VW 2023-03-19 13:45:21 Sharif Sultana [facility] LIPASE 2023-03-19 13:32:00 [facility] 2023-03-19 13:32:00 [facility] ([id number][facility] (ALB,T.PRO,BILI T,BU/BC,ALT,AST,ALK PHOS) 2023-03-19 13:32:00 Sharif Sultana [facility] BASIC METABOLIC PANEL (NA, K, CL, CO2, GLUCOSE, BUN, CREATININE, CA) 2023-03-19 13:32:00 Sharif Sultana [facility] CBC WITH DIFF 2023-03-19 13:32:00 [facility] N-TERMINAL PRO-BNP 2023-03-19 13:32:00 [facility] COVID-19 (ID NOW RAPID TESTING) 2023-03-19 13:32:00 [facility] CONSENT/REFUSAL FOR DIAGNOSIS AND TREATMENT 2023-03-19 12:52:52 Doctor Unassigned, Opal [facility] POCT SARS-COV-2 ANTIGEN (BINAX NOW) 2023-02-22 01:56:00 Enid Mcfarland [facility] POCT MOLECULAR FLU 2023-02-22 01:53:00 Unknown, Attend [facility] POCT MOLECULAR STREP 2023-02-22 01:51:00 Unknown, Atte mario [facility] SLEEP STUDY DATA REPORT 2022-11-19 05:01:00 Doct or Unassigned, Opal [facility] PATIENT FINANCIAL POLICY 2022-10-16 19:17:12 Doctor Unassigned, Opal [facility] FL TIME OR (NON-REPORTABLE) 2022-08-14 15:46:17 Britton Yanez [facility] ASSIGNMENT OF BENEFITS 2022-05-21 14:24:22 Docto r Unassigned, Opal [facility] FLU VACC ([id number]), 6 MO-64 YRS, .5ML, IM, QUAD (FLUCELVAX) 2022-04-15 18:48:46 Remy Harp [facility] Encounters Start Date/Time End Date/Time Encounter Type Admission Type Attending [facility] Facility Care Department Encounter ID Source 2021-05-20 09:37:11 Emergency [facility] [id number] [facility] 2025-02-06 00:00:00 2025-02-06 17:54:23 Letter (Out) [facility] ([facility]) 1.2.840.114 350.1.13.10 4.2.7.2.686 [id number] [facility] 2025-01-02 00:00:00 2025-01-02 09:54:55 Patient Secure Msg Doctor Unassigned, Opal Doctor Unassigned, Opal [facility] 1.2.84.114 350.1.13.10 4.2.7.2.686 [id number] [facility] 2025-01-01 10:59:21 2025-01-01 23:59:00 Hospital Encounter R Remy Harp [facility] 1.2840.114 350.1.13.10 4.2.7.2.686 [id number] [facility] 2025-01-01 10:00:00 2025-01-01 10:31:10 Office Visit R ROLYREMY Gottlieb [facility]?RYANBull [facility] MED[facility] OFFICE BUILDING 1.284.114 350.1.13.10 4.2.7.2.686 [id number] [facility] 2024-11-08 00:00:00 2024-12-09 18:16:09 Patient Secure Msg RolyRemy gottlieb [facility]?RYANBull [facility] MED[facility] OFFICE BUILDING 1.2840.114 350.1.13.10 4.2.7.2.686 [id number] [facility] 2024-11-08 00:00:00 2024-12-09 18:14:42 Patient Secure Msg Doctor Unassigned, Opal Doctor Unassigned, Opal [facility] MEDICAL OFFICE BUILDING 1.2.840.114 350.1.13.10 4.2.7.2.686 [id number] [facility] 2024-10-26 00:00:00 2024-12-02 18:25:02 Patient Secure Msg Doctor Unassigned, Opal Doctor Unassigned, Opal [facility] MEDICAL OFFICE BUILDING 1..840.114 350.1.13.10 4.2.7.2.686 [id number] [facility] 2024-10-26 00:00:00 2024-12-02 18:24:45 Patient Secure Msg Doctor Unassigned, Opal Doctor Unassigned, Opal [facility] MEDICAL OFFICE BUILDING 1..840.114 350.1.13.10 4.2.7.2.686 [id number] 044 [id number] [facility] 2024-11-01 00:00:00 2024-12-02 18:17:28 Patient Secure Msg Remy Harp [facility] MEDICAL OFFICE BUILDING 1.2.840.114 350.1.13.10 4.2.7.2.686 [id number] [facility] 2024-10-31 08:52:39 2024-10-31 23:59:00 Outpatient R REMY HARP [facility] [id number] [facility] 2024-10-31 08:52:39 2024-10-31 23:59:00 Hospital Encounter Remy Harp [facility] 1.2.840.114 350.1.13.10 4.2.7.2.686 [id number] [facility] 2024-10-25 08:45:00 2024-10-25 09:00:00 Pharmacist Technician Visit Lab, Eugenia Fallie Lab, Ang - Db [facility]?GREG[facility] MEDICAL OFFICE BUILDING 1.84114 350.1.13.10 4.2.7.2.686 [id number] [facility] 2024-10-25 08:00:00 2024-10-25 08:42:23 Outpatient R REMY HARP [facility] [id number] [facility] 2024-10-25 08:00:00 2024-10-25 08:42:23 Office Visit Remy Harp [facility]REG[facility] MEDICAL OFFICE BUILDING 1.114 350.1.13.10 4.2.7.2.686 [id number] [facility] 2024-09-20 09:30:00 2024-09-20 09:30:00 Outpatient R REMY HARP [facility] [id number] [facility] 2024-09-07 08:00:00 2024-09-07 08:00:00 Outpatient R BRITTON YANEZ [facility] [id number] [facility] 2017-01-28 00:00:00 2024-09-02 03:43:55 Orders Only Doctor Unassigned, Opal Doctor Unassigned, Opal [facility] ([facility]) 1..114 350..13.10 4.2.7.2.686 [id number] [facility] 2024-08-14 16:00:00 2024-08-14 16:26:37 Outpatient R REMY HARP [facility] [id number] [facility] 2024-08-14 16:00:00 2024-08-14 16:26:37 Office Visit Remy Harp [facility]REG[facility] MEDICAL OFFICE BUILDING 1.84.114 350.1.13.10 4.2.7.2.686 [id number] [id number] [facility] 2024-08-10 14:30:00 2024-08-10 15:15:00 Ancillary Visit Lakeshia Covarrubias Craig L Johanson, [facility] BUILDING 1.2.840.114 350.1.13.10 4.2.7.2.686 [id number] [facility] 2024-08-10 14:30:00 2024-08-10 14:30:00 Outpatient R LARISA RICHARDS CRAIG [facility] [id number] [facility] 2024-08-10 08:15:00 2024-08-10 08:15:00 Outpatient R BRITTON YANEZ [facility] [id number] [facility] 2024-08-06 00:00:00 2024-08-07 11:50:17 Telephone Valeria Philippe [facility] MEDICAL OFFICE BUILDING 1.2.840.114 350.1.13.10 4.2.7.2.686 [id number] [facility] 2024-08-03 14:30:00 2024-08-03 16:13:53 Ancillary Visit Lakeshia Covarrubias Craig L Johanson, [facility] BUILDING 1.2.840.114 350.1.13.10 4.2.7.2.686 [id number] [facility] 2024-08-02 00:00:00 2024-08-02 11:31:19 Telephone Remy Harp [facility] MEDICAL OFFICE BUILDING 1.2.840.114 350.1.13.10 4.2.7.2.686 [id number] [facility] 2024-07-27 14:00:00 2024-07-27 14:21:28 Outpatient R VALERIA PHILIPPE [facility] [id number] [facility] 2024-07-27 14:00:00 2024-07-27 14:21:28 Office Visit Valeria Philippe [facility] MEDICAL OFFICE BUILDING 1.2.840.114 350.1.13.10 4.2.7.2.686 [id number] [facility] 2024-07-06 13:30:00 2024-07-06 13:30:00 Outpatient R BRITTON YANEZ [facility] [id number] [facility] 2024-06-23 10:15:00 2024-06-23 10:15:00 Outpatient R LARISA RICHARDS CRAIG [facility] [id number] [facility] 2024-06-23 09:00:00 2024-06-23 09:16:49 Outpatient REMY ALONZO [facility] [id number] [facility] 2024-06-08 14:30:00 2024-06-08 15:15:00 Ancillary Visit Kaykay Merrill Craig L Brown, Melissa K [facility] 1.2.840.114 350.1.13.10 4.2.7.2.686 [id number] [facility] 2024-06-08 14:30:00 2024-06-08 14:30:00 Outpatient LARISA DIAZ CRAIG [facility] [id number] [facility] 2024-06-02 00:00:00 2024-06-02 14:30:01 Refill Remy Harp [facility] MEDICAL OFFICE BUILDING 1.2.840.114 350.1.13.10 4.2.7.2.686 [id number] [facility] 2024-06-01 13:00:00 2024-06-01 13:45:00 Ancillary Visit Kaykay Merrill Craig L Brown, Melissa K [facility] BUILDING 1.2840.114 350.1.13.10 4.2.7.2.686 [id number] [facility] 2024-05-31 13:30:00 2024-05-31 13:58:29 Outpatient R REMY HARP [facility] [id number] [facility] 2024-05-31 13:30:00 2024-05-31 13:58:29 Office Visit Remy Harp [facility] 1.2.840.114 350.1.13.10 4.2.7.2.686 [id number] 044 [id number] [facility] 2024-05-25 15:15:00 2024-05-25 16:00:00 Ancillary Visit Kaykay Merrill Craig L Brown, Melissa K [facility] BUILDING 1.2.840.114 350.1.13.10 4.2.7.2.686 [id number] [facility] 2024-05-19 08:45:00 2024-05-19 09:46:49 Ancillary Visit Lakeshia Covarrubias Craig L Johanson, Dara [facility] BUILDING 1.2.840.114 350.1.13.10 4.2.7.2.686 [id number] [facility] 2024-05-12 08:45:00 2024-05-12 09:51:02 Outpatient R LARISA RICHARDS CRAIG [facility] [id number] [facility] 2024-05-12 08:45:00 2024-05-12 09:51:02 Ancillary Visit Kaykay Merrill Craig L Brown, Melissa K [facility] BUILDING 1.2.840.114 350.1.13.10 4.2.7.2.686 [id number] [facility] 2024-05-05 16:00:00 2024-05-05 16:00:00 Outpatient R ALAINA CHAPIN [facility] [id number] [facility] 2024-05-05 08:45:00 2024-05-05 09:27:54 Ancillary Visit Lakeshia Covarrubias, [facility] 1.2.840.114 350.1.13.10 4.2.7.2.686 [id number] [facility] 2024-04-26 13:30:00 2024-04-26 13:57:01 Outpatient R KATIUSKA REMY [facility] [id number] [facility] 2024-04-26 13:30:00 2024-04-26 13:57:01 Office Visit Eugenia Harpie [facility] 1..840.114 350.1.13.10 4.2.7.2.686 [id number] [id number] [facility] 2024-04-04 14:12:34 2024-04-04 23:59:00 Outpatient R ALAINA CHAPIN [facility] [id number] [facility] 2024-04-04 14:12:34 2024-04-04 23:59:00 [facility] 1.2.840.114 350.1.13.10 4.2.7.2.686 [id number] [facility] 2024-04-04 13:30:00 2024-04-04 14:13:57 Office Visit Preston [facility] 1.2.840.114 350.1.13.10 4.2.7.2.686 [id number] [facility] 2024-04-03 14:30:00 2024-04-03 15:10:21 Outpatient R REMY HARP [facility] [id number] [facility] 2024-04-03 14:30:00 2024-04-03 15:10:21 Office Visit Remy Harp [facility] 1.2.840.114 350.1.13.10 4.2.7.2.686 [id number] [facility] 2024-04-02 00:00:00 2024-04-03 13:12:16 Refill Remy Harp [facility] MEDICAL OFFICE BUILDING 1.2.840.114 350.1.13.10 4.2.7.2.686 [id number] [facility] 2024-03-28 00:00:00 2024-03-28 11:25:41 Letter (Out) [facility] 1.2.840.114 350.1.13.10 4.2.7.2.686 [id number] [facility] 2024-03-27 00:00:00 2024-03-27 12:26:40 Letter (Out) [facility] 1.2.840.114 350.1.13.10 4.2.7.2.686 [id number] [facility] 2024-03-24 14:30:00 2024-03-24 15:03:53 Outpatient R REMY HARP [facility] [id number] [facility] 2024-03-24 14:30:00 2024-03-24 15:03:53 Office Visit Remy Harp [facility] MEDICAL OFFICE BUILDING 1.2.840.114 350.1.13.10 4.2.7.2.686 [id number] [facility] 2024-03-16 14:30:00 2024-03-16 16:10:31 Outpatient LARISA DIAZ CRAIG [facility] [id number] [facility] 2024-03-16 14:30:00 2024-03-16 16:10:31 Ancillary Visit Kaykay Merrill Craig L Brown Kaykay Torres [facility] BUILDING 1.2.840.114 350.1.13.10 4.2.7.2.686 [id number] [facility] 2024-03-14 00:00:00 2024-03-14 13:25:51 Telephone Remy Harp [facility] MEDICAL OFFICE BUILDING 1.284.114 350.1.13.10 4.2.7.2.686 [id number] [facility] 2024-03-09 14:30:00 2024-03-09 15:34:56 Ancillary Visit Kaykay Merrill Craig L BrownKaykay [facility] BUILDING 1.2840.114 350.1.13.10 4.2.7.2.686 [id number] [facility] 2024-03-02 14:30:00 2024-03-02 15:15:20 Ancillary Visit Renny Merrill Craig L Brown, Robert F [facility] BUILDING 1.2.840.114 350.1.13.10 4.2.7.2.686 [id number] [facility] 2024-03-02 13:45:00 2024-03-02 14:00:00 Pharmacist Technician Visit Lab, Rosendo Maria Unknown, Attending Lab, Rosendo Maria [facility] OFF[facility] BUILDING 1.284.114 350.1.13.10 4.2.7.2.686 [id number] [facility] 2024-03-02 13:45:00 2024-03-02 13:47:52 Outpatient R REMY HARP [facility] [id number] [facility] 2024-02-29 11:00:00 2024-02-29 11:00:00 Outpatient R REMY HARP [facility] [id number] [facility] 2024-01-23 00:00:00 2024-02-26 18:22:20 Patient Secure Msg Doctor Unassigned, Opal Doctor Unassigned, Opal [facility] MEDICAL OFFICE BUILDING 1.2.840.114 350.1.13.10 4.2.7.2.686 [id number] [facility] 2024-02-22 15:30:00 2024-02-22 15:44:52 Outpatient R REMY HARP [facility] [id number] [facility] 2024-02-22 15:30:00 2024-02-22 15:44:52 Office Visit Remy Harp [facility] 1.2.840.114 350.1.13.10 4.2.7.2.686 [id number] [facility] 2024-02-18 13:00:00 2024-02-18 13:00:00 Outpatient R JACKIE MCKEON RUTH [facility] [id number] [facility] 2024-02-17 10:00:00 2024-02-17 13:34:59 Outpatient R KAI DAVIDSON [facility] [id number] [facility] 2024-02-17 10:00:00 2024-02-17 13:34:59 Office Visit Kai Davidson [facility] MEDICAL OFFICE BUILDING 1.2.840.114 350.1.13.10 4.2.7.2.686 [id number] [facility] 2024-02-12 00:00:00 2024-02-14 16:09:29 Telephone RolyRemy gottlieb [facility] BUILDING 1.2.840.114 350.1.13.10 4.2.7.2.686 [id number] [facility] 2024-01-06 00:00:00 2024-02-12 18:25:53 Patient Secure Msg Doctor Unassigned, Opal [facility] MEDICAL OFFICE BUILDING 1.2.840.114 350.1.13.10 4.2.7.2.686 [id number] [facility] 2024-02-09 10:15:00 2024-02-09 11:19:46 Outpatient R LARISA RICHARDS CRAIG [facility] [id number] [facility] 2024-02-09 10:15:00 2024-02-09 11:19:46 Ancillary Visit Renny Merrill Craig L [facility] 1..840.114 350.1.13.10 4.2.7.2.686 [id number] [facility] 2024-02-02 10:15:00 2024-02-02 10:54:27 Ancillary Visit Kaykay Merrill Craig L [facility] 1.2.840.114 350.1.13.10 4.2.7.2.686 [id number] [facility] 2024-02-01 10:32:23 2024-02-01 23:59:00 Outpatient R REMY HARP [facility] [id number] [facility] 2024-02-01 10:32:23 2024-02-01 23:59:00 Hospital Encounter Remy Harp [facility] 1.2.840.114 350.1.13.10 4.2.7.2.686 [id number] [facility] 2024-01-31 14:30:00 2024-01-31 14:52:50 Outpatient R REMY HARP [facility] [id number] [facility] 2024-01-31 14:30:00 2024-01-31 14:52:50 Office Visit Remy Harp [facility] 1.2.840.114 350.1.13.10 4.2.7.2.686 [id number] [facility] 2024-01-28 13:30:00 2024-01-28 13:30:00 Outpatient R REMY HARP [facility] [id number] [facility] 2024-01-26 15:00:00 2024-01-26 15:18:17 Outpatient R REMY HARP [facility] [id number] [facility] 2024-01-26 15:00:00 2024-01-26 15:18:17 Office Visit Remy Harp [facility] MED[facility] OFFICE BUILDING 1..840.114 350.1.13.10 4.2.7.2.686 [id number] [facility] 2024-01-24 15:00:00 2024-01-24 15:00:00 Outpatient R REMY HARP [facility] [id number] [facility] 2024-01-20 00:00:00 2024-01-21 08:00:21 Refill Remy Harp [facility] 1.2.840.114 350.1.13.10 4.2.7.2.686 [id number] [facility] 2024-01-19 09:40:00 2024-01-19 10:40:58 Outpatient R AURELIO MCDONALD [facility] [id number] [facility] 2024-01-19 09:40:00 2024-01-19 10:40:58 Urgent Care Aurelio Mcdonald Unknown, Attending [facility] MED[facility] OFFICE BUILDING 1.2.840.114 350.1.13.10 4.2.7.2.686 [id number] [facility] 2024-01-14 00:00:00 2024-01-14 00:00:00 Outpatient R ROLYREMY Gottlieb [facility] [id number] [facility] 2024-01-10 13:45:00 2024-01-10 14:30:00 Ancillary Visit Renny Merrill Craig L [facility] PROFESS[facility] N[facility] BUILDING 1.840.114 350.1.13.10 4.2.7.2.686 [id number] [facility] 2024-01-06 00:00:00 2024-01-06 07:59:14 Telephone Remy Harp [facility] OFFICE BUILDING 1.840.114 350.1.13.10 4.2.7.2.686 [id number] [facility] 2024-01-06 07:00:00 2024-01-06 07:31:53 Outpatient R VALERIA PHILIPPE [facility] [id number] [facility] 2024-01-06 07:00:00 2024-01-06 07:31:53 Office Visit Valeria Philippe [facility] OFF[facility] BUILDING 1.840.114 350.1.13.10 4.2.7.2.686 [id number] [facility] 2023-12-01 00:00:00 2024-01-01 18:17:45 Patient Secure Msg Doctor Unassigned, Opal [facility] 1.84.114 350.1.13.10 4.2.7.2.686 [id number] [facility] 2023-12-29 00:00:00 2023-12-31 10:51:15 Patient Secure Msg RolyRemy gottlieb [facility] 1.2.840.114 350.1.13.10 4.2.7.2.686 [id number] [facility] 2023-12-29 00:00:00 2023-12-30 09:42:06 Telephone Remy Harp [facility] 1.2.840.114 350.1.13.10 4.2.7.2.686 [id number] [facility] 2023-12-30 08:45:00 2023-12-30 09:30:00 Ancillary Visit Renny Merrill Craig L [facility] 1..840.114 350.1.13.10 4.2.7.2.686 [id number] [facility] 2023-12-23 00:00:00 2023-12-24 07:49:47 Refill Remy Harp [facility] 1..840.114 350.1.13.10 4.2.7.2.686 [id number] [facility] 2023-12-23 08:45:00 2023-12-23 11:32:17 Outpatient LARISA DIAZ [facility] [id number] [facility] 2023-12-23 08:45:00 2023-12-23 09:30:00 Ancillary Visit Renny Merrill Craig L [facility] 1.2.840.114 350.1.13.10 4.2.7.2.686 [id number] [facility] 2023-12-22 00:00:00 2023-12-22 00:00:00 Outpatient R REMY HARP [facility] [id number] [facility] 2023-12-17 10:30:00 2023-12-17 10:54:59 Outpatient R REMY HARP [facility] [id number] [facility] 2023-12-17 10:30:00 2023-12-17 10:54:59 [facility] 1.2.840.114 350.1.13.10 4.2.7.2.686 [id number] [facility] 2023-12-16 14:30:00 2023-12-16 15:15:00 Ancillary Visit Renny Merrill Craig [facility] 1.2.840.114 350.1.13.10 4.2.7.2.686 [id number] [facility] 2023-12-03 12:00:00 2023-12-03 13:00:00 Ancillary Visit Lakeshia Covarrubias Craig [facility] 1.2.840.114 350.1.13.10 4.2.7.2.686 [id number] [facility] 2023-12-03 12:00:00 2023-12-03 12:00:00 Outpatient R LARISA RICHARDS CRAIG [facility] [id number] [facility] 2023-11-16 13:30:00 2023-11-16 14:01:56 Outpatient R REMY HARP [facility] [id number] [facility] 2023-11-16 13:30:00 2023-11-16 14:01:56 [facility] 1.2.840.114 350.1.13.10 4.2.7.2.686 [id number] [facility] 2023-11-09 13:40:00 2023-11-09 14:00:00 Urgent Care Noel Pruitt Unknown, Attending [facility] 1.114 350.1.13.10 4.2.7.2.686 [id number] [facility] 2023-11-09 13:40:00 2023-11-09 13:40:00 Outpatient R NOEL PRUITT [facility] [id number] [facility] 2023-08-03 10:00:00 2023-08-03 10:00:00 Outpatient R [facility] [id number] [facility] 2023-07-08 00:00:00 2023-07-08 00:00:00 Telephone Britton Yanez [facility] 1.114 350.1.13.10 4.2.7.2.686 [id number] [facility] 2023-06-23 12:46:42 2023-06-23 23:59:00 Outpatient R REMY HARP [facility] [id number] [facility] 2023-06-23 12:46:42 2023-06-23 23:59:00 Hospital Encounter Remy Harp [facility] 1.114 350.1.13.10 4.2.7.2.686 [id number] [facility] 2023-06-23 00:00:00 2023-06-23 00:00:00 Telephone RolyRemy gottlieb [facility] 1.114 350.1.13.10 4.2.7.2.686 [id number] 044 [id number] [facility] 2023-06-23 00:00:00 2023-06-23 00:00:00 Patient Secure Msg Doctor Unassigned, Opal [facility] 1..114 350.1.13.10 4.2.7.2.686 [id number] [facility] 2023-06-21 00:00:00 2023-06-21 00:00:00 Wilder Rolybull Remy [facility] 1.2.840.114 350.1.13.10 4.2.7.2.686 [id number] [facility] 2023-06-08 00:00:00 2023-06-08 00:00:00 Patient Secure Msg Chau [facility] BUILDING 1.2.840.114 350.1.13.10 4.2.7.2.686 [id number] [facility] 2023-06-07 14:48:39 2023-06-07 23:59:00 Outpatient R CHAU [facility] [id number] [facility] 2023-06-07 14:48:39 2023-06-07 23:59:00 Hospital Encounter Chau, [facility] BUILDING 1.2.840.114 350.1.13.10 4.2.7.2.686 [id number] [facility] 2023-05-27 00:00:00 2023-05-27 00:00:00 Patient Secure Msg Chau [facility] BUILDING 1.2.840.114 350.1.13.10 4.2.7.2.686 [id number] [facility] 2023-05-26 09:07:34 2023-05-26 23:59:00 Outpatient R CHAU [facility] [id number] [facility] 2023-05-26 09:07:34 2023-05-26 23:59:00 Hospital Encounter Chau, [facility] 1.2.840.114 350.1.13.10 4.2.7.2.686 [id number] [facility] 2023-05-25 00:00:00 2023-05-25 00:00:00 Telephone Remy Harp [facility] KAVIN?[facility] MED[facility] OFFICE BUILDING 1.2840.114 350.1.13.10 4.2.7.2.686 [id number] [id number] [facility] 2023-05-25 00:00:00 2023-05-25 00:00:00 Patient Secure Msg Doctor Unassigned, Opal [facility] MED[facility] OFFICE BUILDING 1.840.114 350.1.13.10 4.2.7.2.686 [id number] [id number] [facility] 2023-05-24 08:30:00 2023-05-24 08:45:00 Pharmacist Technician Visit Lab, [facility] - Crow Remy Harp [facility] K[facility]IN?[facility] MED[facility] OFFICE BUILDING 1.840.114 350.1.13.10 4.2.7.2.686 [id number] [facility] 2023-05-24 08:30:00 2023-05-24 08:30:00 Outpatient R REMY HARP [facility] [id number] [facility] 2023-05-24 08:00:00 2023-05-24 08:20:31 Office Visit Remy Harp [facility] MED[facility] OFFICE BUILDING 1.840.114 350.1.13.10 4.2.7.2.686 [id number] [id number] [facility] 2023-05-24 00:00:00 2023-05-24 00:00:00 Orders Only Doctor Unassigned, Opal [facility] 1.84.114 350.1.13.10 4.2.7.2.686 [id number] [facility] 2023-05-17 16:00:00 2023-05-17 16:00:00 [facility] [id number] 2023-05-10 13:20:00 2023-05-10 13:36:24 [facility] [id number] [facility] 2023-05-10 13:20:00 2023-05-10 13:36:24 [facility] 1..840.114 350.1.13.10 4.2.7.2.686 [id number] [facility] 2023-03-30 11:30:00 2023-03-30 12:01:28 Outpatient R KATIUSKA REMY [facility] [id number] [facility] 2023-03-30 11:30:00 2023-03-30 12:01:28 [facility] OFF[facility] BUILDING 1..840.114 350.1.13.10 4.2.7.2.686 [id number] [facility] 2023-03-30 00:00:00 2023-03-30 00:00:00 Telephone Katiuska [facility] K[facility]IN?[facility] OFFICE BUILDING 1..840.114 350.1.13.10 4.2.7.2.686 [id number] [id number] [facility] 2023-03-26 14:00:00 2023-03-26 14:15:00 Pharmacist Technician Visit Lab, [facility] - Crow Harp [facility] K[facility]IN?[facility] BUILDING 1.2.840.114 350.1.13.10 4.2.7.2.686 [id number] [facility] 2023-03-26 13:30:00 2023-03-26 13:48:23 Outpatient R REMY HARP [facility] [id number] [facility] 2023-03-26 13:30:00 2023-03-26 13:48:23 Office Visit Remy Harp [facility] 1.2.840.114 350.1.13.10 4.2.7.2.686 [id number] 044 [id number] [facility] 2023-03-26 00:00:00 2023-03-26 00:00:00 Pre Visit Outreach Sandra Taylor 1.2.840.114 350.1.13.10 4.2.7.2.686 [id number] [facility] 2023-03-24 10:30:00 2023-03-24 10:50:14 Outpatient R REMY HARP [facility] [id number] [facility] 2023-03-24 10:30:00 2023-03-24 10:50:14 Office Visit [facility] Har[facility] MED[facility] OFFICE BUILDING 1.2.840.114 350.1.13.10 4.2.7.2.686 [id number] 044 [id number] [facility] 2023-03-24 00:00:00 2023-03-24 00:00:00 Refill Remy Harp [facility] K[facility]IN?[facility] MEDICAL OFFICE BUILDING 1.2.840.114 350.1.13.10 4.2.7.2.686 [id number] [facility] 2023-03-19 08:00:00 2023-03-19 10:31:00 Emergency X SHARIF SULTANA [facility] ERT [id number] [facility] 2023-03-19 08:00:00 2023-03-19 10:31:00 Emergency Sharif Sultana [facility] 1.2.840.114 350.1.13.10 4.2.7.2.686 [id number] [facility] 2023-03-17 08:00:00 2023-03-17 08:00:00 Outpatient R ROLYREMY Gottlieb [facility] [id number] [facility] 2023-03-15 14:00:00 2023-03-15 14:00:00 Outpatient R KATIUSKA REMY [facility] [id number] [facility] 2023-03-08 14:00:00 2023-03-08 14:00:00 Outpatient R JACKIE MCKEON RUTH [facility] [id number] [facility] 2023-02-21 20:40:00 2023-02-21 21:00:00 Urgent Care BartoloEnid Unknown, Attending [facility] 1.2.840.114 350.1.13.10 4.2.7.2.686 [id number] [facility] 2023-02-21 20:40:00 2023-02-21 20:40:00 Outpatient R ENID MCFARLAND [facility] [id number] [facility] 2023-02-17 00:00:00 2023-02-17 00:00:00 Telephone Jackie Mckeon Sarahkb [facility] MEDICAL OFFICE BUILDING 1.2.840.114 350.1.13.10 4.2.7.2.686 [id number] [facility] 2023-02-16 14:00:00 2023-02-16 14:19:07 Outpatient R JACKIE MCKEON RUTH [facility] [id number] [facility] 2023-02-16 14:00:00 2023-02-16 14:19:07 Office Visit Jackie Mckeon [facility] MEDICAL OFFICE BUILDING 1.2.840.114 350.1.13.10 4.2.7.2.686 [id number] [facility] 2023-02-16 00:00:00 2023-02-16 00:00:00 Telephone Jackie Mckeon [facility] MEDICAL OFFICE BUILDING 1.2.840.114 350.1.13.10 4.2.7.2.686 [id number] [facility] 2023-01-06 11:00:00 2023-01-06 11:00:00 Outpatient BRITTON MERCHANT [facility] [id number] [facility] 2022-12-23 00:00:00 2022-12-23 00:00:00 Patient [facility] OFF[facility] BUILDING 1.2.840.114 350.1.13.10 4.2.7.2.686 [id number] [facility] 2022-12-15 13:30:00 2022-12-15 13:42:43 Outpatient R REMY HARP [facility] [id number] [facility] 2022-12-15 13:30:00 2022-12-15 13:42:43 Office Visit Remy Harp [facility]IN?[facility]ILD[facility] 1.2.840.114 350.1.13.10 4.2.7.2.686 [id number] 044 [id number] [facility] 2022-12-10 08:45:00 2022-12-10 09:30:00 Ancillary Visit Kaykay Merrill Michael J [facility] BUILDING 1.2.840.114 350.1.13.10 4.2.7.2.686 [id number] [facility] 2022-12-10 08:45:00 2022-12-10 08:45:00 Outpatient BRITTON MERCHANT [facility] [id number] [facility] 2022-12-09 15:15:00 2022-12-09 16:00:00 Ancillary Visit Aurelio Abarca Michael J [facility] BUILDING 1..840.114 350.1.13.10 4.2.7.2.686 [id number] [facility] 2022-12-09 10:00:00 2022-12-09 10:39:25 Outpatient R BRITTON YANEZ [facility] [id number] [facility] 2022-12-09 10:00:00 2022-12-09 10:39:25 Office Visit Britton Yanez [facility] 1.840.114 350.1.13.10 4.2.7.2.686 [id number] [facility] 2022-12-04 09:30:00 2022-12-04 10:24:02 Ancillary Visit Kaykay Merrill Craig L [facility] BUILDING 1.2.840.114 350.1.13.10 4.2.7.2.686 [id number] [facility] 2022-12-02 15:15:00 2022-12-02 16:00:00 Ancillary Visit Renny Merrill Craig L [facility] BUILDING 1..840.114 350.1.13.10 4.2.7.2.686 [id number] [facility] 2022-11-26 00:00:00 2022-11-26 00:00:00 Case Management Sarah Troy [facility] BUILDING 1.2.840.114 350.1.13.10 4.2.7.2.686 [id number] [facility] 2022-11-24 00:00:00 2022-11-24 00:00:00 Patient Secure Jackie Bonner [facility] OFFICE BUILDING 1.2.840.114 350.1.13.10 4.2.7.2.686 [id number] 084 [id number] [facility] 2022-11-24 00:00:00 2022-11-24 00:00:00 Telephone Remy Harp [facility] BUILDING 1.840.114 350.1.13.10 4.2.7.2.686 [id number] [facility] 2022-11-24 00:00:00 2022-11-24 00:00:00 Telephone Jackie Mckeon [facility] MEDICAL OFFICE BUILDING 1..114 350.1.13.10 4.2.7.2.686 [id number] [facility] 2022-11-19 15:00:00 2022-11-19 15:15:00 Pharmacist Technician Visit [facility] Alireza Shipman [facility] 1.0.114 350.1.13.10 4.2.7.2.686 [id number] [facility] 2022-11-19 15:00:00 2022-11-19 15:00:00 Outpatient R ALIREZA SHIPMAN STRAPAAlexander [facility] [id number] [facility] 2022-11-19 13:45:00 2022-11-19 14:30:00 Ancillary Visit Sarah Troy Craig L [facility] PROFESSIO NAL BUILDING 1.0.114 350.1.13.10 4.2.7.2.686 [id number] [facility] 2022-11-19 00:00:00 2022-11-19 00:00:00 Orders Only Doctor Unassigned, Opal [facility] 1.840.114 350.1.13.10 4.2.7.2.686 [id number] [facility] 2022-11-18 09:30:00 2022-11-18 09:59:39 Ancillary Visit Renny Merrill Craig L [facility] BUILDING 1.2.840.114 350.1.13.10 4.2.7.2.686 [id number] [facility] 2022-11-13 14:30:00 2022-11-13 17:14:36 Outpatient R ROLYREMY Gottlieb [facility] [id number] [facility] 2022-11-13 14:30:00 2022-11-13 17:14:36 Office Visit Katiuska Remy [facility] 1..840.114 350.1.13.10 4.2.7.2.686 [id number] 044 [id number] [facility] 2022-11-12 10:15:00 2022-11-12 10:56:23 Ancillary Visit Renny Merrill Craig L [facility] BUILDING 1..840.114 350.1.13.10 4.2.7.2.686 [id number] [facility] 2022-11-05 13:45:00 2022-11-05 14:32:29 Outpatient LARISA DIAZ [facility] [id number] [facility] 2022-11-05 13:45:00 2022-11-05 14:32:29 Ancillary Visit Charity Rodriguez Craig [facility] BUILDING 1..840.114 350.1.13.10 4.2.7.2.686 [id number] [facility] 2022-11-04 13:30:00 2022-11-04 13:49:05 Outpatient JACKIE GIBSON RUTH [facility] [id number] [facility] 2022-11-04 13:30:00 2022-11-04 13:49:05 Office Visit Jackie Mckeon [facility] MEDICAL OFFICE BUILDING 1..840.114 350.1.13.10 4.2.7.2.686 [id number] [facility] 2022-10-16 14:30:00 2022-10-16 14:52:34 Outpatient R REMY HARP [facility] [id number] [facility] 2022-10-16 14:30:00 2022-10-16 14:52:34 [facility] 1..840.114 350.1.13.10 4.2.7.2.686 [id number] [id number] [facility] 2022-10-16 00:00:00 2022-10-16 00:00:00 Orders Only Doctor Unassigned, Opal [facility] 1.840.114 350.1.13.10 4.2.7.2.686 [id number] [facility] 2022-09-29 00:00:00 2022-09-29 00:00:00 [facility] 1.840.114 350.1.13.10 4.2.7.2.686 [id number] [facility] 2022-09-28 13:00:00 2022-09-28 13:00:00 Outpatient R BRITTON YANEZ [facility] [id number] [facility] 2022-09-15 08:30:00 2022-09-15 08:30:00 Outpatient R REMY HARP [facility] [id number] [facility] 2022-09-09 14:30:00 2022-09-09 15:03:40 Office Visit Katiuska [facility] K[facility]IN?[facility] MEDICAL OFFICE BUILDING 1.2.84114 350.1.13.10 4.2.7.2.686 [id number] [facility] 2022-09-09 10:15:00 2022-09-09 10:55:09 Outpatient R BRITTON YANEZ [facility] [id number] [facility] 2022-09-09 10:15:00 2022-09-09 10:55:09 Office Visit Britton Yanez [facility] 1.114 350.1.13.10 4.2.7.2.686 [id number] [facility] 2022-09-03 13:00:00 2022-09-03 13:00:00 Outpatient REMY ALONZO [facility] [id number] [facility] 2022-08-25 00:00:00 2022-08-25 00:00:00 Telephone Britton Yanez [facility]PEC [facility] 1.114 350.1.13.10 4.2.7.2.686 [id number] [facility] 2022-08-18 00:00:00 2022-08-18 00:00:00 Telephone Britton Yanez [facility]PEC [facility] 1.114 350.1.13.10 4.2.7.2.686 [id number] [id number] [facility] 2022-08-17 11:30:00 2022-08-17 12:00:41 Office Visit [facility] 1.84114 350.1.13.10 4.2.7.2.686 [id number] 044 [id number] [facility] 2022-08-17 11:30:00 2022-08-17 11:30:00 Outpatient REMY ALONZO [facility] [id number] [facility] 2022-08-17 00:00:00 2022-08-17 00:00:00 Telephone Katiuska Remy [facility] OFF[facility] BUILDING 1.2840.114 350.1.13.10 4.2.7.2.686 [id number] [facility] 2022-08-14 09:07:14 2022-08-14 23:59:00 Outpatient R BRITTON YANEZ [facility] [id number] [facility] 2022-08-14 09:07:14 2022-08-14 23:59:00 Hospital Encounter Britton Yanez [facility]PEC [facility] 1..840.114 350.1.13.10 4.2.7.2.686 [id number] [facility] 2022-08-14 09:00:00 2022-08-14 09:30:00 [facility] 1.0.114 350.1.13.10 4.2.7.2.686 [id number] [facility] 2022-08-13 00:00:00 2022-08-13 00:00:00 Telephone Britton Yanez [facility]TY [facility] 1.0.114 350.1.13.10 4.2.7.2.686 [id number] [facility] 2022-08-13 00:00:00 2022-08-13 00:00:00 Patient Secure Msg Doctor Unassigned, Opal [facility] 1.2.114 350.1.13.10 4.2.7.2.686 [id number] [facility] 2022-08-12 16:00:00 2022-08-12 16:00:00 Office Visit [facility]on [facility] 1.2840.114 350.1.13.10 4.2.7.2.686 [id number] [facility] 2022-08-12 16:00:00 2022-08-12 15:49:06 Outpatient R BRITTON YANEZ [facility] [id number] [facility] 2022-07-15 15:30:00 2022-07-15 16:01:06 Outpatient R REMY HARP [facility] [id number] [facility] 2022-07-15 15:30:00 2022-07-15 16:01:06 Office Visit Remy Harp [facility] 1.2.840.114 350.1.13.10 4.2.7.2.686 [id number] [facility] 2022-07-15 00:00:00 2022-07-15 00:00:00 Telephone Remy Harp [facility] 1.2.840.114 350.1.13.10 4.2.7.2.686 [id number] [facility] 2022-07-14 13:30:00 2022-07-14 13:30:00 Outpatient R REMY HARP [facility] [id number] [facility] 2022-07-07 00:00:00 2022-07-07 00:00:00 Telephone Lety [facility] MEDICAL OFFICE BUILDING 1.2.840.114 350.1.13.10 4.2.7.2.686 [id number] [facility] 2022-07-06 09:45:00 2022-07-06 10:00:00 Office Visit Lety [facility] MEDICAL OFFICE BUILDING 1.2.840.114 350.1.13.10 4.2.7.2.686 [id number] [facility] 2022-07-06 09:45:00 2022-07-06 09:45:00 Outpatient R KAI DAVIDSON [facility] [id number] Severo champagne [facility] 2022-06-15 08:30:00 2022-06-15 08:49:58 Outpatient R REMY HARP [facility] [id number] [facility] 2022-06-15 08:30:00 2022-06-15 08:49:58 Office Visit RolyRemy gottlieb [facility] 1..840.114 350.1.13.10 4.2.7.2.686 [id number] [facility] 2022-06-08 00:00:00 2022-06-08 00:00:00 Refill Joselito Beauchamp [facility] 1..840.114 350.1.13.10 4.2.7.2.686 [id number] [facility] 2022-06-03 14:30:00 2022-06-03 15:16:01 Outpatient R LARISA RICHARDS [facility] [id number] [facility] 2022-06-03 14:30:00 2022-06-03 15:16:01 Ancillary Visit Kaykay Merrill Craig L [facility] 1..840.114 350.1.13.10 4.2.7.2.686 [id number] [facility] 2022-05-27 14:30:00 2022-05-27 15:29:21 Ancillary Visit Kaykay Merrill Craig L [facility] 1..840.114 350.1.13.10 4.2.7.2.686 [id number] [facility] 2022-05-21 08:45:00 2022-05-21 09:27:12 Ancillary Visit Garfield Kaykay Larisa Oswald [facility] 1.84.114 350.1.13.10 4.2.7.2.686 [id number] [facility] 2022-05-21 00:00:00 2022-05-21 00:00:00 Orders Only Doctor Unassigned, Opal [facility] 1.2.114 350.1.13.10 4.2.7.2.686 [id number] [facility] 2022-05-15 10:30:00 2022-05-15 11:04:40 Outpatient R REMY HARP [facility] [id number] [facility] 2022-05-15 10:30:00 2022-05-15 11:04:40 Office Visit Remy Harp [facility] 1.84.114 350.1.13.10 4.2.7.2.686 [id number] [facility] 2022-05-14 14:30:00 2022-05-14 15:15:00 Ancillary Visit Sarah Troy Craig L [facility] BUILDING 1.84.114 350.1.13.10 4.2.7.2.686 [id number] [facility] 2022-05-14 14:30:00 2022-05-14 14:30:00 Outpatient R LARISA RICHARDS [facility] [id number] [facility] 2022-05-07 14:30:00 2022-05-07 15:15:00 Ancillary Visit Sarah Troy Craig L [facility] BUILDING 1.284.114 350.1.13.10 4.2.7.2.686 [id number] [facility] 2022-04-23 09:30:00 2022-04-23 10:15:00 Ancillary Visit Kaykay Merrill Craig L [facility] 1.840.114 350.1.13.10 4.2.7.2.686 [id number] [facility] 2022-04-23 00:00:00 2022-04-23 00:00:00 Refill Katiuska Remy [facility] K[facility]IN?[facility] MEDICAL OFFICE BUILDING 1.840.114 350.1.13.10 4.2.7.2.686 [id number] [facility] 2022-04-17 09:30:00 2022-04-17 09:30:00 Outpatient REMY ALONZO [facility] [id number] [facility] 2022-04-16 09:30:00 2022-04-16 11:06:05 Outpatient R LARISA RICHARDS [facility] [id number] [facility] 2022-04-16 09:30:00 2022-04-16 11:06:05 Outpatient R LARISA RICHARDS [facility] [id number] [facility] 2022-04-16 09:30:00 2022-04-16 11:06:05 Ancillary Visit Kaykay Merrill Craig L [facility] 1.840.114 350.1.13.10 4.2.7.2.686 [id number] [facility] 2022-04-15 13:30:00 2022-04-15 13:57:30 Outpatient REMY ALONZO [facility] [id number] [facility] 2022-04-15 13:30:00 2022-04-15 13:57:30 Office Visit Remy Harp [facility]IN?[facility] OFF[facility] BUILDING 1.840.114 350.1.13.10 4.2.7.2.686 [id number] [facility] 2022-04-09 09:30:00 2022-04-09 10:15:00 Ancillary Visit Kaykay Merrill Craig L [facility] 1.840.114 350.1.13.10 4.2.7.2.686 [id number] [facility] 2022-04-02 09:30:00 2022-04-02 09:30:00 Outpatient R LARISA RICHARDS [facility] [id number] [facility] 2022-03-31 13:30:00 2022-03-31 14:00:00 Office Visit Remy Harp [facility] OFF[facility] BUILDING 1.840.114 350.1.13.10 4.2.7.2.686 [id number] [facility] 2022-03-31 13:30:00 2022-03-31 13:30:00 Outpatient R REMY HARP [facility] [id number] [facility] 2022-03-31 11:30:00 2022-03-31 11:30:00 Outpatient R REMY HARP [facility] [id number] [facility] 2022-03-26 09:30:00 2022-03-26 10:22:00 Ancillary Visit Kaykay Merrill Craig L [facility] 1.840.114 350.1.13.10 4.2.7.2.686 [id number] [facility] 2022-03-24 00:00:00 2022-03-24 00:00:00 Orders Only Doctor Unassigned, Opal [facility] 1.840.114 350.1.13.10 4.2.7.2.686 [id number] [facility] 2022-03-19 09:30:00 2022-03-19 10:13:17 Ancillary Visit Renny Merrill Craig L [facility] BUILDING 1.84.114 350.1.13.10 4.2.7.2.686 [id number] [facility] 2022-03-16 09:00:00 2022-03-16 09:15:00 Pharmacist Technician Visit Lab, [facility] OFF[facility] BUILDING 1.84.114 350.1.13.10 4.2.7.2.686 [id number] [facility] 2022-03-16 08:00:00 2022-03-16 09:02:44 Office Visit KatiuskaRemy [facility]IN?[facility] MEDICAL OFFICE BUILDING 1.84.114 350.1.13.10 4.2.7.2.686 [id number] [facility] 2022-03-16 08:00:00 2022-03-16 09:02:44 Outpatient R REMY HARP [facility] [id number] [facility] 2022-03-16 09:00:00 2022-03-16 09:00:00 Outpatient REMY ALONZO [facility] [id number] [facility] 2022-03-16 08:00:00 2022-03-16 08:00:00 Outpatient R REMY HARP [facility] [id number] [facility] 2022-03-12 09:30:00 2022-03-12 10:10:13 Outpatient R LARISA RICHARDS [facility] [id number] [facility] 2022-03-12 09:30:00 2022-03-12 10:10:13 Ancillary Visit Sarah Troy Craig L [facility] BUILDING 1.84.114 350.1.13.10 4.2.7.2.686 [id number] [facility] 2022-03-05 09:30:00 2022-03-05 10:15:00 Ancillary Visit Renny MerrillLarisa [facility] BUILDING 1.2.840.114 350.1.13.10 4.2.7.2.686 [id number] [facility] 2022-02-26 08:45:00 2022-02-26 09:30:00 Ancillary Visit Renny MerrillLarisa [facility] BUILDING 1.2.840.114 350.1.13.10 4.2.7.2.686 [id number] [facility] 2022-02-20 08:45:00 2022-02-20 09:25:43 Outpatient LARISA DIAZ [facility] [id number] [facility] 2022-02-20 08:45:00 2022-02-20 09:25:43 [facility] 1.2.840.114 350.1.13.10 4.2.7.2.686 [id number] [facility] 2022-02-20 08:45:00 2022-02-20 08:45:00 Outpatient LARISA DIAZ [facility] [id number] [facility] 2022-02-10 00:00:00 2022-02-10 00:00:00 Telephone Valeria Philippe [facility] K[facility]IVN?[facility] BUILD[facility] 1..840.114 350.1.13.10 4.2.7.2.686 [id number] [facility] 2022-02-09 13:30:00 2022-02-09 13:54:25 Outpatient REMY ALONZO [facility] [id number] [facility] 2022-02-09 13:30:00 2022-02-09 13:54:25 Office Visit Katiuska Remy [facility] MEDICAL OFFICE BUILDING 1.2840.114 350.1.13.10 4.2.7.2.686 [id number] [facility] 2022-01-14 16:00:00 2022-01-14 16:15:00 Pharmacist Technician Visit Lab, Rosendo Maria Abdulaziz [facility] MEDICAL OFFICE BUILDING 1.2840.114 350.1.13.10 4.2.7.2.686 [id number] [facility] 2022-01-14 16:00:00 2022-01-14 16:00:00 Outpatient R ABDULAZIZ [facility] [id number] [facility] 2022-01-14 10:20:00 2022-01-14 10:51:11 Outpatient R ABDULAZIZ [facility] [id number] [facility] 2022-01-14 10:20:00 2022-01-14 10:51:11 Urgent Care Abdulaziz [facility] MEDICAL OFFICE BUILDING 1.284.114 350.1.13.10 4.2.7.2.686 [id number] [facility] 2022-01-13 00:00:00 2022-01-13 00:00:00 Telephone Lety [facility] MEDICAL OFFICE BUILDING 1.2840.114 350.1.13.10 4.2.7.2.686 [id number] [facility] 2022-01-13 00:00:00 2022-01-13 00:00:00 Patient Secure Msg Lety [facility] MEDICAL OFFICE BUILDING 1.2840.114 350.1.13.10 4.2.7.2.686 [id number] [facility] 2022-01-12 14:00:00 2022-01-12 14:15:00 Office Visit Kai Davidson [facility] MEDICAL OFFICE BUILDING 1.2.840.114 350.1.13.10 4.2.7.2.686 [id number] [facility] 2022-01-12 14:00:00 2022-01-12 14:00:00 Outpatient R LETYLORIHI [facility] [id number] [facility] 2022-01-05 14:30:00 2022-01-05 14:54:41 Outpatient R REMY HARP [facility] [id number] [facility] 2022-01-05 14:30:00 2022-01-05 14:54:41 Office Visit Remy Harp [facility] BUILDING 1..840.114 350.1.13.10 4.2.7.2.686 [id number] [facility] 2021-12-31 14:44:26 2021-12-31 23:59:00 Outpatient R REMY HARP [facility] [id number] [facility] 2021-12-31 14:44:26 2021-12-31 23:59:00 Hospital En[facility]iuska [facility] 1..840.114 350.1.13.10 4.2.7.2.686 [id number] [facility] 2021-12-29 00:00:00 2021-12-29 00:00:00 Patient Secure Msg Doctor Unassigned, Opal [facility] 1..840.114 350.1.13.10 4.2.7.2.686 [id number] [facility] 2021-12-10 15:15:00 2021-12-10 16:00:00 Ancillary Visit John, Lindy T Richards, Larisa [facility] BUILDING 1..840.114 350.1.13.10 4.2.7.2.686 [id number] [facility] 2021-12-10 15:15:00 2021-12-10 15:15:00 Outpatient R LARISA RICHARDS [facility] [id number] [facility] 2021-12-10 15:15:00 2021-12-10 15:15:00 Outpatient R LARISA RICHARDS [facility] [id number] [facility] 2021-12-05 15:30:00 2021-12-05 16:06:36 Outpatient R KATIUSKA REMY [facility] [id number] [facility] 2021-12-05 15:30:00 2021-12-05 16:06:36 Office Visit [facility] BUILD[facility] 1.840.114 350.1.13.10 4.2.7.2.686 [id number] [facility] 2021-12-05 15:30:00 2021-12-05 15:30:00 Outpatient R ROLYREMY Gottlieb [facility] [id number] [facility] 2021-12-04 13:00:00 2021-12-04 13:45:00 [facility] 1..840.114 350.1.13.10 4.2.7.2.686 [id number] [facility] 2021-12-04 00:00:00 2021-12-04 00:00:00 Refill Joselito Beauchamp [facility] K[facility]IN?[facility] MEDICAL OFFICE BUILDING 1..840.114 350.1.13.10 4.2.7.2.686 [id number] [facility] 2021-12-01 14:30:00 2021-12-01 15:15:00 Ancillary Visit Lindy Lopez Craig L [facility] BUILDING 1.2.840.114 350.1.13.10 4.2.7.2.686 [id number] [facility] 2021-11-24 14:30:00 2021-11-24 15:15:00 Ancillary Visit Lindy Lopez Craig L [facility] BUILDING 1.2.840.114 350.1.13.10 4.2.7.2.686 [id number] [facility] 2021-11-24 00:00:00 2021-11-24 00:00:00 Orders Only Doctor Unassigned, Opal [facility] 1.2.840.114 350.1.13.10 4.2.7.2.686 [id number] [facility] 2021-11-19 00:00:00 2021-11-19 00:00:00 Refill Joselito Beauchamp [facility] MEDICAL OFFICE BUILDING 1.2.840.114 350.1.13.10 4.2.7.2.686 [id number] [facility] 2021-11-17 08:45:00 2021-11-17 09:30:00 Ancillary Visit Lindy Lopez Craig L [facility] BUILDING 1.2.840.114 350.1.13.10 4.2.7.2.686 [id number] [facility] 2021-11-07 00:00:00 2021-11-07 00:00:00 Orders Only Doctor Unassigned, Opal [facility] 1.2.840.114 350.1.13.10 4.2.7.2.686 [id number] [facility] 2021-11-05 16:00:00 2021-11-05 16:47:07 Outpatient R ROLYREMY Gottlieb [facility] [id number] [facility] 2021-11-05 16:00:00 2021-11-05 16:47:07 [facility] BUILD[facility] 1.2.840.114 350.1.13.10 4.2.7.2.686 [id number] [facility] 2021-10-31 15:30:00 2021-10-31 16:04:43 Outpatient R REMY HARP [facility] [id number] [facility] 2021-10-31 15:30:00 2021-10-31 16:00:00 Office Visit KatiuskaRemy [facility] K[facility]IN?[facility] MEDICAL OFFICE BUILDING 1.2.840.114 350.1.13.10 4.2.7.2.686 [id number] [facility] 2021-10-31 15:30:00 2021-10-31 15:30:00 Outpatient R KATIUSKA REMY [facility] [id number] [facility] 2021-10-29 13:00:00 2021-10-29 13:00:00 Outpatient R VALERIA PHILIPPE [facility] [id number] [facility] 2021-10-28 16:32:54 2021-10-28 23:59:00 Outpatient R REMY HARP [facility] [id number] [facility] 2021-10-28 16:30:00 2021-10-28 16:31:00 Outpatient R REMY HARP [facility] [id number] [facility] 2021-10-28 16:00:00 2021-10-28 16:30:00 Office Visit KatiuskaRemy [facility] K[facility]IN?[facility] MEDICAL OFFICE BUILDING 1.2.840.114 350.1.13.10 4.2.7.2.686 [id number] [facility] 2021-10-28 16:00:00 2021-10-28 16:00:00 Outpatient R REMY HARP [facility] [id number] [facility] 2021-07-30 00:00:00 2021-07-30 00:00:00 Telephone Abdulaziz [facility] MEDICAL OFFICE BUILDING 1.2.840.114 350.1.13.10 4.2.7.2.686 [id number] [facility] 2021-07-25 17:48:49 2021-07-25 23:59:00 [facility] MED[facility] OFFICE BUILDING 1.2.840.114 350.1.13.10 4.2.7.2.686 [id number] [facility] 2021-07-25 18:00:00 2021-07-25 18:20:00 Urgent Care Dhara Cintron [facility] MEDICAL OFFICE BUILDING 1.2840.114 350.1.13.10 4.2.7.2.686 [id number] [facility] 2021-07-25 18:00:00 2021-07-25 18:02:39 Outpatient R HILL BEDOLLA [facility] [id number] [facility] 2021-07-25 15:30:00 2021-07-25 15:30:00 Outpatient R VALERIA PHILIPPE [facility] [id number] [facility] 2021-07-22 00:00:00 2021-07-22 00:00:00 Patient Secure Msg Doctor Unassigned, Opal [facility] 1.2840.114 350.1.13.10 4.2.7.2.686 [id number] [facility] 2021-07-17 13:00:00 2021-07-17 13:00:00 Outpatient R REFUGIO PAIZ [facility] [id number] [facility] 2021-07-15 19:15:00 2021-07-15 19:30:00 Laboratory Only Only, Ang Db Test Hill Bedolla [facility] BUILDING 1.840.114 350.1.13.10 4.2.7.2.686 [id number] [facility] 2021-07-15 19:20:00 2021-07-15 19:20:00 Outpatient R DHARA CINTRON [facility] [id number] [facility] 2021-07-15 19:15:00 2021-07-15 19:15:00 Outpatient R YOJANAHILL CAPPS [facility] [id number] [facility] 2021-07-10 10:19:00 2021-07-10 15:02:00 Emergency X DAVIDHALLEY HI [facility] ERT [id number] [facility] 2021-07-10 10:19:00 2021-07-10 15:02:00 Emergency Hi Corona F [facility] 1.840.114 350.1.13.10 4.2.7.2.686 [id number] [facility] 2021-07-10 08:30:00 2021-07-10 08:30:00 Outpatient VALERIA JOSE [facility] [id number] [facility] 2021-06-25 16:00:00 2021-06-25 16:00:00 Outpatient VALERIA JOSE [facility] [id number] [facility] 2021-06-19 00:00:00 2021-06-19 00:00:00 Patient Secure Alejandra Nagy [facility] 1.2.840.114 350.1.13.10 4.2.7.2.686 [id number] [facility] 2021-06-10 13:07:44 2021-06-10 13:22:44 Pharmacist Technician Visit [facility] Alejandra Vargas [facility] 1.2840.114 350.1.13.10 4.2.7.2.686 [id number] [facility] 2021-06-10 12:30:00 2021-06-10 13:08:41 Outpatient R ALEJANDRA VARGAS [facility] [id number] [facility] 2021-06-10 12:19:46 2021-06-10 13:08:41 [facility] 1.2840.114 350.1.13.10 4.2.7.2.686 [id number] [facility] 2021-06-03 00:00:00 2021-06-03 00:00:00 Orders Only Doctor Unassigned, Opal [facility] 1.2840.114 350.1.13.10 4.2.7.2.686 [id number] [facility] 2021-05-27 15:45:58 2021-05-27 16:00:58 Pharmacist Technician Visit [facility]andra [facility] 1.20.114 350.1.13.10 4.2.7.2.686 [id number] [facility] 2021-05-27 14:30:00 2021-05-27 15:46:54 Outpatient R ALEJANDRA VARGAS [facility] [id number] [facility] 2021-05-27 14:30:00 2021-05-27 15:46:54 Outpatient R ALEJANDRA VARGAS [facility] [id number] [facility] 2021-05-27 14:08:09 2021-05-27 15:46:54 Office Visit Alejandra Vargas [facility] 1.84.114 350.1.13.10 4.2.7.2.686 [id number] [facility] 2021-05-22 00:00:00 2021-05-22 00:00:00 Patient Secure Msg Madrigal [facility] MEDICAL OFFICE BUILDING 1.840.114 350.1.13.10 4.2.7.2.686 [id number] [facility] 2021-05-14 16:00:00 2021-05-14 16:17:51 Outpatient R VALERIA PHILIPPE [facility] [id number] [facility] 2021-05-14 15:52:21 2021-05-14 16:17:51 Office Visit Valeria Philippe [facility] MEDICAL OFFICE BUILDING 1.84.114 350.1.13.10 4.2.7.2.686 [id number] [facility] 2021-05-14 16:00:00 2021-05-14 16:00:00 Outpatient R VALERIA PHILIPPE [facility] [id number] [facility] 2021-05-13 00:06:00 2021-05-13 01:59:00 Emergency Ev Hawkins [facility] 1.84.114 350.1.13.10 4.2.7.2.686 [id number] [facility] 2021-05-12 16:42:59 2021-05-12 16:47:21 Pharmacist Technician Visit Lab, Rosendo Madrigal Nitza [facility] Kavin?[facility] Medical Office Building 1.84.114 350.1.13.10 4.2.7.2.686 [id number] [facility] 2021-05-12 15:29:32 2021-05-12 16:41:27 Office Visit Nitza Madrigal [facility] Medical Office Building 1.114 350.1.13.10 4.2.7.2.686 [id number] [facility] 2021-05-12 15:30:00 2021-05-12 15:30:00 Outpatient R NITZA MADRIGAL [facility] [id number] [facility] 2021-04-17 00:00:00 2021-04-17 00:00:00 Letter (Out) Serina Tan [facility] 1..114 350.1.13.10 4.2.7.2.686 [id number] [facility] 2021-04-16 11:21:42 2021-04-16 11:36:42 Laboratory Only Only, Ang Db Test [facility] Medical Office Building 1.84.114 350.1.13.10 4.2.7.2.686 [id number] [facility] 2021-04-16 11:30:00 2021-04-16 11:30:00 Outpatient R DEANNEESTEBANCHRISTY [facility] [id number] [facility] 2021-04-03 00:00:00 2021-04-03 00:00:00 Telephone Judith Khoury [facility] Medical Office Building 1.84.114 350.1.13.10 4.2.7.2.686 [id number] [facility] 2021-03-27 13:21:12 2021-03-27 13:36:12 Office Visit Aleksandra Gupta [facility] Medical Office Building 1.84.114 350.1.13.10 4.2.7.2.686 [id number] [facility] 2021-03-27 13:30:00 2021-03-27 13:30:00 Outpatient R ALEKSANDRA GUPTA [facility] [id number] [facility] 2021-03-27 00:00:00 2021-03-27 00:00:00 Letter (Out) [facility] Medical Office Building 1.84.114 350.1.13.10 4.2.7.2.686 [id number] [facility] 2021-03-15 00:00:00 2021-03-15 00:00:00 Patient Secure Msg Doctor Unassigned, Opal [facility] 1.84.114 350.1.13.10 4.2.7.2.686 [id number] [facility] 2021-03-14 09:13:19 2021-03-14 09:47:46 Office Visit Larisa Richards [facility] Medical Office Building 1.84.114 350.1.13.10 4.2.7.2.686 [id number] [facility] 2021-03-14 09:30:00 2021-03-14 09:30:00 Outpatient R LARISA RICHARDS [facility] [id number] [facility] 2021-03-13 13:51:58 2021-03-13 15:05:53 Office Visit Valeria Philippe [facility] 1.84.114 [id number] [id number] [facility] 2021-03-13 14:00:00 2021-03-13 14:00:00 Outpatient R VALERIA PHILIPPE [facility] [id number] [facility] 2021-03-12 00:00:00 2021-03-12 00:00:00 Telephone RohanGenevaNitza [facility] [id number] [id number] [facility] 2021-03-10 15:07:49 2021-03-10 23:59:00 Outpatient R KARONGENEVA WELLSTHIA [facility] [id number] [facility] 2021-03-10 14:30:00 2021-03-10 14:30:00 Outpatient R ROHAN NITZA [facility] [id number] [facility] 2021-02-20 12:08:12 2021-02-20 13:23:48 Office Visit Valeria Philippe [facility] 1..840.114 350.1.13.10 4.2.7.2.686 [id number] [facility] 2021-02-20 12:30:00 2021-02-20 12:30:00 Outpatient R VALERIA PHILIPPE [facility] [id number] [facility] 2021-02-03 10:00:00 2021-02-03 10:00:00 Outpatient R JNEIFER MACDONALD [facility] [id number] [facility] 2020-12-11 00:00:00 2020-12-11 00:00:00 [facility] 1..840.114 350.1.13.10 4.2.7.2.686 [id number] [facility] 2020-12-09 11:29:46 2020-12-09 11:44:46 Pharmacist Technician Visit [facility] Dodie [facility] 1.840.114 350.1.13.10 4.2.7.2.686 [id number] [facility] 2020-12-09 10:00:00 2020-12-09 11:25:43 Outpatient R DODIE [facility] [id number] [facility] 2020-12-09 09:36:42 2020-12-09 11:25:43 Office Visit Dodie [facility] 1.840.114 350.1.13.10 4.2.7.2.686 [id number] [facility] 2020-12-09 10:00:00 2020-12-09 10:00:00 Outpatient R JENIFER MACDONALD [facility] [id number] [facility] 2020-11-28 10:30:00 2020-11-28 10:30:00 Outpatient JUDITH BEAUCHAMP [facility] [id number] [facility] 2020-11-27 09:00:00 2020-11-27 09:00:00 Outpatient ALEXIA SIMON [facility] [id number] [facility] 2020-11-13 00:00:00 2020-11-13 00:00:00 Outpatient JUDITH BEAUCHAMP [facility] [id number] [facility] 2020-10-31 00:00:00 2020-10-31 00:00:00 Case Management Judith Khoury [facility] 1..840.114 350.1.13.10 4.2.7.2.686 [id number] [facility] 2020-10-30 00:00:00 2020-10-30 00:00:00 Patient Secure Msg Doctor Unassigned, Opal [facility] 1.2840.114 350.1.13.10 4.2.7.2.686 [id number] [facility] 2020-10-30 00:00:00 2020-10-30 00:00:00 Patient Secure Msg Doctor Unassigned, Opal [facility] 1.2840.114 350.1.13.10 4.2.7.2.686 [id number] [facility] 2020-10-29 08:15:59 2020-10-29 08:35:59 Pharmacist Technician Visit Pob, Adc Lab Main Valeria Philippe [facility] Building 1..840.114 350.1.13.10 4.2.7.2.686 [id number] [facility] 2020-10-29 08:00:00 2020-10-29 08:00:00 Outpatient R VALERIA PHILIPPE [facility] [id number] [facility] 2020-10-26 16:10:00 2020-10-26 16:10:00 Outpatient [facility] [id number] [facility] 2020-10-25 13:06:45 2020-10-25 14:06:38 Office Visit Judith Khoury [facility] 1..840.114 350.1.13.10 4.2.7.2.686 [id number] [facility] 2020-10-25 13:15:00 2020-10-25 13:15:00 Outpatient R JUDITH KHOURY [facility] [id number] [facility] 2020-10-05 16:10:00 2020-10-05 16:10:00 Outpatient [facility] [id number] [facility] 2020-10-03 00:00:00 2020-10-03 00:00:00 Patient Outreach Refugio Paiz [facility] 1.114 350.1.13.10 4.2.7.2.686 [id number] [facility] 2020-06-24 13:35:47 2020-06-24 23:59:00 Hospital Encounter Judith Khoury [facility] 1.114 350.1.13.10 4.2.7.2.686 [id number] [facility] 2020-06-24 13:35:47 2020-06-24 23:59:00 Outpatient R JUDITH KHOURY [facility] [id number] [facility] 2020-06-20 00:00:00 2020-06-20 00:00:00 [facility] BUILDING 1.114 350.1.13.10 4.2.7.2.686 [id number] [facility] 2020-06-19 00:00:00 2020-06-19 00:00:00 Outpatient R ELISE RITCHIE [facility] [id number] [facility] 2020-06-19 00:00:00 2020-06-19 00:00:00 Orders Only Doctor Unassigned, Opal [facility] 1.114 350.1.13.10 4.2.7.2.686 [id number] [facility] 2020-06-17 15:32:02 2020-06-17 15:47:02 Laboratory Only Only, Adc Test Britton Costello [facility] 1.114 350.1.13.10 4.2.7.2.686 [id number] [facility] 2020-06-17 15:45:00 2020-06-17 15:45:00 Outpatient R [facility] [id number] [facility] 2020-06-12 00:00:00 2020-06-12 00:00:00 Case Management Judith Khoury [facility] 1.114 350.1.13.10 4.2.7.2.686 [id number] [facility] 2020-06-04 00:00:00 2020-06-04 00:00:[address] [facility] 1..114 350.1.13.10 4.2.7.2.686 [id number] [facility] 2020-05-31 10:22:28 2020-05-31 11:58:37 [facility] 1.114 350.1.13.10 4.2.7.2.686 [id number] [facility] 2020-05-31 10:40:00 2020-05-31 10:40:00 Outpatient R ELISE RITCHIE [facility] [id number] [facility] 2020-05-30 12:28:58 2020-05-30 12:43:58 Pharmacist Technician Visit [facility] Main Judith Khoury [facility] Building 1.114 350.1.13.10 4.2.7.2.686 [id number] [facility] 2020-05-30 11:26:34 2020-05-30 12:14:19 Office Visit Judith Khoury [facility] 1.114 350.1.13.10 4.2.7.2.686 [id number] [facility] 2020-05-30 11:27:48 2020-05-30 11:47:48 Pharmacist Technician Visit Lab, Martin Fam Beatriz I Judith Khoury [facility] Office Building One 1.2.840.114 350.1.13.10 4.2.7.2.686 [id number] [facility] 2020-05-30 11:30:00 2020-05-30 11:30:00 Outpatient R BERNARD KHOURYHARJEETJESSE [facility] [id number] [facility] 2020-05-30 00:00:00 2020-05-30 00:00:00 Orders Only Doctor Unassigned, Opal [facility] 1.0.114 350.1.13.10 4.2.7.2.686 [id number] [facility] 2020-05-30 00:00:00 2020-05-30 00:00:00 Telephone Judith Khoury [facility] One 1.114 350.1.13.10 4.2.7.2.686 [id number] [facility] 2020-02-02 00:00:00 2020-02-02 00:00:00 [facility] 1.0.114 350.1.13.10 4.2.7.2.686 [id number] 2020-02-02 00:00:00 2020-02-02 00:00:00 [facility] 1.0.114 350.1.13.10 4.2.7.2.686 [id number] [facility] 2020-02-01 12:53:49 2020-02-01 15:29:04 Laboratory Only Lab, Adc Fam Pob I [facility] 1.0.114 350.1.13.10 4.2.7.2.686 [id number] 2020-02-01 12:53:49 2020-02-01 15:29:04 Laboratory Only Lab, Adc Fam Pob I Sonal [facility] Office Building One 1.840.114 350.1.13.10 4.2.7.2.686 [id number] [facility] 2020-02-01 13:40:00 2020-02-01 13:40:00 Outpatient NOEL ROLON [facility] [id number] [facility] 2020-02-01 00:00:00 2020-02-01 00:00:00 Letter (Out) Lab, Pcp [facility] Office Building One 1.840.114 350.1.13.10 4.2.7.2.686 [id number] [facility] 2020-02-01 00:00:00 2020-02-01 00:00:00 Letter (Out) Lab, Pcp [facility] Office Building One 1.2840.114 350.1.13.10 4.2.7.2.686 [id number] [facility] 2020-01-28 09:24:35 2020-01-28 09:39:01 Laboratory Only Lab, [facility] 1.2840.114 350.1.13.10 4.2.7.2.686 [id number] [facility] 2020-01-28 08:40:00 2020-01-28 08:40:00 Outpatient Liban BRANTLEYGENEVA WELLSTHIA [facility] [id number] [facility] 2020-01-17 09:00:00 2020-01-17 09:00:00 Outpatient ROBIN SANTAMARIA [facility] [id number] [facility] 2019-11-17 09:45:00 2019-11-17 09:45:00 Outpatient ROBIN SANTAMARIA [facility] [id number] [facility] 2019-11-17 08:15:11 2019-11-17 08:30:11 Telemedici ne Visit Robin Burgess [facility] Building 1.2.840.114 350.1.13.10 4.2.7.2.686 [id number] [facility] 2019-03-31 15:04:14 2019-03-31 16:28:52 Office Visit Judith Khoury [facility] One 1.2.840.114 350.1.13.10 4.2.7.2.686 [id number] [facility] 2019-03-24 00:00:00 2019-03-24 00:00:[address] [facility] One 1.2.840.114 350.1.13.10 4.2.7.2.686 [id number] [facility] 2019-03-15 00:00:00 2019-03-15 00:00:[address] [facility] One 1.2.840.114 350.1.13.10 4.2.7.2.686 [id number] [facility] 2019-03-14 15:30:00 2019-03-14 23:59:00 Hospital Encounter Judith Khoury [facility] 1.2.840.114 350.1.13.10 4.2.7.2.686 [id number] [facility] 2019-03-14 14:47:21 2019-03-14 15:20:36 Office Visit Judith Khoury [facility] One 1.2.840.114 350.1.13.10 4.2.7.2.686 [id number] [facility] 2019-03-14 00:00:00 2019-03-14 00:00:00 Orders Only Doctor Unassigned, Opal [facility] 1.2.840.114 350.1.13.10 4.2.7.2.686 [id number] [facility] 2018-01-25 07:47:00 2018-01-25 08:53:00 Emergency X VINCE ODOM [facility] ERT [id number] [facility] Results Test Description Test Time Test Comments Results Resul t Comments Source XR Ankle 3+ vw right 2024-12-17 6 18:50:57 XR ANKLE 3+ VW RIGHT INDICATION: ankle pain COMPARISON: None FINDINGS: Circumferential ankle soft tissue swelling. No acute fracture ordislocation. Joint spacing and alignment are well-maintained. [facility] US Abdomen limited 2024-10-17 5 22:13:18 EXAM: US ABDOMEN LIMITED HISTORY: 44 years-old Male; Provided indication: ELEVATED LFTS ABDOMEN PAIN. TECHNIQUE: Survey ultrasound imaging focused on the right upper quadrantwas performed. The main portal vein was evaluated with color Dopplerimaging. Stencil Typist images were obtained for the record. COMPARISON: Abdominal ultrasound performed on 06/23/2023 FINDINGS: LIVER: The liver measures 18.3 cm.Parenchyma: The liver parenchyma exhibits diffuse increased echogenicity. Observations: No focal lesion is seen. Portal vein: Patent hepatopetal flow is present.MPV diameter: The diameter is 1.0 cm. BILE DUCTS:No intrahepatic ductal dilatation is seen.The common duct diameter measures 0.4 cm. GALLBLADDER:No stone, wall thickening, or pericholecystic fluid is seen.The patient denied pain to sonographic palpation. SPLEEN:The spleen measures 14.0 cm. [id number] 16:41:29 MR LUMBAR SPINE WO CONTRAST HISTORY: [...] significant spinal canal stenosis or neural foraminal narr owing L3-L4: Mild facet arthropathy results in no significant spinal canalstenosis or neural foraminal narrowing L4-L5: No significant spinal canal stenosis or neural foraminal narrowing L5-S1: A shallow posterior disc bulge results in no significant spinalcanal stenosis or neural foraminal narrowing. An annular fissure is againnoted at this level.[facility] POCT MOLECULAR [id number] 15:33:38* Test Item Value Reference Range Interpretation Comme [facility] POCT Molecular Strep (test c ode = 91526-8) Negative Negative Lab Interpretation (test cod e = 89859-3) Normal [facility] SARS-COV-2 ANTIGEN (BINAX NOW)2024-01-19 14:58:00* Test Item Value Reference Range Interpretation Comme [facility] POCT SARS-COV-2 ANTIGEN (test code = 91559-1) Not Detected Not Detected, See Comment On board controls acceptable with C Line (test code = 3574) Yes ANTONIO (test code = ANTONIO) accurate developme nt and interpretation of all internal controls Lab Interpretation (test code = 80430-7) Normal [facility]2023-06-08 01:03:48* Test Item Value Reference Range Interpretation Comme nts Height (test code = 3033974316) 69 in Weight (test code = 1853337890) 266 lbs Systolic BP (test code = 6845603125) 128 mmHg Diastolic BP (test code = 5043834738) 85 mmHg Heart Rate (test code = 2909684321) 81 bpm BSA (test code = 2251212934) 2.33 m2 LVIDD (test code = 0785525388) 5.30 cm Left Ventricular End Diastolic Volume by Teichholz Method (test code = 0992421) 137.1 mL IVS (test code = 6596285551) 1.20 cm Interventricular Septum Diastolic Thickness by 2D (test code = 1872294) 1.20 cm LVPWD (test code = 1956143323) 1.01 cm PW (test code = 8429592967) 1.01 cm 0.6-1.1 EF(Teich) (test code = 2649500466) 58.00 % LVIDS (test code = 1978165008) 3.70 cm Left Ventricular End Systolic Volume by Teichholz Method (test code = 5377802) 57.6 mL FS (test code = 3181263149) 31 % EF - 2D (test code = 27488393) 58.00 % LVOT diameter (test code = 4036611320) 2.00 cm LVOT area (test code = 1885461911) 3.10 cm2 ACS (test code = 4289956769) 2.11 cm Ao root diam (test code = 1800635233) 3.40 cm Aortic root (test code = 7245746337) 3.4 cm Ao root annulus (test code = 9326474026) 3.4 cm LA size (test code = 4048022499) 4.1 cm E wave decelartion time (test code = 3477446672) 0.28 s MV Peak E Fadia (test code = 0806591894) 63.5 cm/s MV Peak A Fadia (test code = 6195128089) 58.3 cm/s E/A ratio (test code = 0382874767) 1.09 ratio MV Prop V (test code = 0429213787) 40.20 cm/s LVOT stroke volume (test code = 5104660772) 69.70 cm3 LVOT peak fadia (test code = 8287260530) 122.0 cm/s LVOT mn grad (test code = 5424188932) 2.8 mmHg AV LVOT peak gradient (test code = 0832556405) 6.0 mmHg LVOT peak VTI (test code = 2487363562) 22.3 cm LV V1 mean (test code = 9100290528) 77.40 cm/s Aortic valve mean velocity (test code = 2625564517) 100.6 cm/s Ao peak fadia (test code = 1893567884) 152.7 cm/s Ao VTI (test code = 3728954113) 28.7 cm AV area by cont VTI (test code = 1990761678) 2.4 cm2 AV area peak fadia (test code = 7371428608) 2.5 cm2 Ao max PG (test code = 3218768354) 9.30 mm[Hg] AV peak gradient (test code = 0336157557) 9.3 mmHg AV valve area (test code = 7149625811) 2.43 cm2 AV mean gradient (test code = 0619184022) 4.7 mmHg LAV(MOD-sp4) (test code = 2517354369) 27.10 mL Tapse (test code = 9743450287) 1.90 cm MR max PG (test code = 7552226918) 42.30 mm[Hg] MR max fadia (test code = 7600358800) 325.10 cm/s Mr max fadia (test code = 5462000684) 325.1 m/s TR Peak Fadia (test code = 0458895019) 202.8 cm/s Triscuspid Valve Regurgitation Peak Gradient (test code = 5214370958) 16.5 mmHg Radiology Study observation (narrative) (test code = 19639-2) ANTONIO (test code = ANTONIO) ?Left?Ventricle: Left [...] mL of Lumason ultrasound enhancing agent used. [facility] [id number] 21:06:56* Test Item Value Reference Range Interpretation Comme [facility] POCT Creatinine (test code = 3920713759) 0.9 mg/dL 0.6-1.3 Lab Interpretation (test cod e = 33030-5) Normal [facility] [id number] 14:56:08* Test Item Value Reference Range Interpretation Comme [facility] NT-proBNP (test code = 38054-0) <=125 Lab Interpretation (test cod e = 85585-4) Normal [facility] [id number] 14:22:19* Test Item Value Reference Range Interpretation Comme [facility] TROPONIN I (test code = 7576969153) 0.008 ng/mL <=0.034 ANTONIO (test code = [...] of biotin. Lab Interpretation (test code = 20941-9) Normal [facility] (NA, K, CL, CO2, GLUCOSE, BUN, CREATININE, CA)2023-03-19 14:11:00* Test Item Value Reference Range Interpretation Comme nts NA (test code = 8710872800) 139 mmol/L 135-145 K (test code = 3147634045) 4.6 mmol/L 3.5-5.0 CL (test code = 3089123570) 106 mmol/L 98-108 CO2 TOTAL (test code = 3059358543) 26 mmol/L 23-31 AGAP (test code = 9737128736) 7 2-16 BUN (test code = 7880383093) 13 mg/dL 7-23 GLUCOSE (test code = 0676623543) 102 mg/dL 70-110 CREATININE (test code = 6759660431) 0.92 mg/dL 0.60-1.25 CALCIUM (test code = 5046334746) 9.1 mg/dL 8.6-10.6 eGFR (test code = 9342553251) 89.4 mL/min/1.73m2 ANTONIO (test code = ANTONIO) [...] or urine or abnormalities in imaging tests). [facility] (34145) (ALB,T.PRO,BILI T,BU/BC,ALT,AST,ALK PHOS)2023-03-19 14:11:00* Test Item Value Reference Range Interpretation Comme nts TOTAL BILI (test code = 4749143957) 0.7 mg/dL 0.1-1.1 BILI UNCON (test code = 5138802062) 0.6 mg/dL 0.1-1.1 BILI CONJ (test code = 4636444060) 0.0 mg/dL 0.0-0.3 T PROTEIN (test code = 1694361981) 8.1 g/dL 6.3-8.2 ALBUMIN (test code = 3785226199) 4.3 g/dL 3.5-5.0 ALK PHOS (test code = 6105628109) 67 U/L 34-122 ALTv (test code = 1742-6) 43 U/L 5-50 AST(SGOT) (test code = 2438740305) 52 U/L 13-40 H Lab Interpretation (test cod e = 71588-6) Abnormal [facility]23-[facility] 14:11:00* Test Item Value Reference Range Interpretation Comme nts LIPASE (test code = 5153610880) 103 U/L 0-220 Lab Interpretation (test cod e = 54553-5) Normal [facility] WITH [id number] 13:57:39* Test Item Value Reference Range Interpretation Comme nts WBC (test code = 6690-2) 6.24 See_Comment [Automated [employer] ge] The system which generated this result transmitted reference range: 4.20 - 10.70 10*3/?L. The reference range was not used to interpret this result as normal/abnormal. RBC (test code = 789-8) 5.43 See_Comment [Automated [employer] Wowboard] The system which generated this result transmitted [...] g/dL 31.2-35.0 H RDW-SD (test code = 32236-2) 42.7 fL 38.5-51.6 RDW-CV (test code = 788-0) 13.4 % 12.1-15.4 PLT (test code = 777-3) 186 See_Comment [Automated messa ge] The system which generated this result transmitted reference range: 150 - 328 10*3/?L. The reference range was not used to interpret this result as normal/abnormal. MPV (test code = 02131-9) 9.1 fL 9.8-13.0 L NRBC/100 WBC (test code = 1545442447) 0.0 See_Comment [Automated [employer] ssage] The system which generated this result transmitted reference range: 0.0 - 10.0 /100 WBCs. The reference range was not used to interpret this result as normal/abnormal. NRBC x10^3 (test code = 7993298174) See_Comment [Automated messa ge] The system which generated this result transmitted reference range: 10*3/?L. The reference range was not used to interpret this result as normal/abnormal. GRAN MAT (NEUT) % (test code = 770-8) 48.6 % IMM GRAN % (test code = 0489562356) 0.20 % LYMPH % (test code = 736-9) 39.6 % MONO % (test code = 5905-5) 7.7 % EOS % (test code = 713-8) 3.4 % BASO % (test code = 706-2) 0.5 % GRAN MAT x10^3(ANC) (test code = 8392071191) 3.04 10*3/uL 1.99-6.95 IMM GRAN x10^3 (test code = 6938725097) 0.00-0.06 LYMPH x10^3 (test code = 731-0) 2.47 10*3/uL 1.09-3.23 MONO x10^3 (test code = 742-7) 0.48 10*3/uL 0.36-1.02 EOS x10^3 (test code = 711-2) 0.21 10*3/uL 0.06-0.53 BASO x10^3 (test code = 704-7) 0.03 10*3/uL 0.01-0.09 Lab Interpretation (test code = 58819-4) Abnormal [facility] MOLECULAR [id number] 02:05:42* Test Item Value Reference Range Interpretation Comme nts POCT Molecular FluA (test co de = 71276-2) Negative Negative POCT Molecular FluB (test co de = 02539-2) Negative Negative Lab Interpretation (test cod e = 39645-2) Normal [facility] MOLECULAR [id number] 01:58:33* Test Item Value Reference Range Interpretation Comme nts POCT Molecular Strep (test c ode = 05022-2) Negative Negative Lab Interpretation (test cod e = 72099-3) Normal [facility] SARS-COV-2 ANTIGEN (BINAX NOW)2023-02-22 01:56:00* Test Item Value Reference Range Interpretation Comme nts POCT SARS-COV-2 ANTIGEN (test code = 90317-7) Not Detected Not Detected On board controls acceptable with C Line (test code = 3574) Yes ANTONIO (test code = ANTONIO) accurate developme nt and interpretation of all internal controls Lab Interpretation (test code = 04416-9) Normal [facility] Notes Date/Time Note Provider Source 2024-10-25 08:45:00 Images from the original note were not included. Venipuncture collection performed by clean technique on the left anticubitus. Total of 1 attempts were made. Slight pressure and a bandage/dressing were applied to the site(s). The patient experienced no complications. The following specimens were processed according to instructions and sent to [facility] laboratories per lab order on 10/25/2024 : LT BLUE SST 1 RED LAV 2 PPT DK GREEN (LiHep) DK GREEN (SodH) BILL DK BLUE (K2) DK BLUE (S) ACD Blood Culture NIPT/NTD Breath kit collected and sent. [facility] 2024-10-25 08:00:00 No anemia or infection noted T [facility] 2024-10-25 08:00:00 Addended by: REMY HARP on: 10/25/2024 07:41 PM Modules accepted: Orders [facility] 2024-08-06 10:25:22 Received disability form from [facility] [place] and have placed in provider's box for completion. [employer] Jeannette Mcintosh [facility] 2024-08-02 11:30:55 Sent and updated [facility] 2024-08-02 10:23:53 Pt states the note he received has the year 2023 instead of 2024. Please revise and update. Please Advise. [facility] Louisa Castro [facility] 2024-06-02 14:14:29 Images from the original note were not included. Notes: 01/21/24 Last Refilled: [facility] [place], [place] - [address] [place] [address] Drive AT [place] & Kalpesh Pindea Recent Visits Date Type Provider Dept 05/31/24 Office Visit Remy Harp FNP [facility] 04/26/24 Office Visit Remy Harp FNP [facility] 04/03/24 Office Visit Remy Harp FNP [facility] 03/24/24 Office Visit Remy Harp FNP [facility] 02/22/24 Office Visit Remy Harp FNP [facility] 01/31/24 Office Visit Remy Harp FNP [facility] 01/26/24 Office Visit Remy Harp FNP [facility] 01/06/24 Office Visit Valeria Philippe PA [facility] 12/17/23 Office Visit Remy Harp FNP [facility] 11/16/23 Office Visit Remy Harp FNP [facility] Showing recent visits within past 540 days with a meds authorizing provider and meeting all other requirements Future Appointments Date Type Provider Dept 07/03/24 Appointment Remy Harp FNP [facility] 09/20/24 Appointment Remy Harp FNP [facility] Showing future appointments within next 150 days with a meds authorizing provider and meeting all other requirements atorvastatin 20 mg tablet Sig: Take 1 tablet by mouth at bedtime. Disp: 90 tablet Refills: 1 Start: 06/02/2024 Class: eRX For: Mixed hyperlipidemia Last ordered: 4 months ago (01/21/2024) by RENEE Carr Patient comment: No refills left Cardiovascular: Antilipid - HMG-CoA Reductase Inhibitors Vajfpc7506/02/2024 12:38 PM Protocol Details AST in normal range and within 360 days ALT in normal range and within 360 days Valid encounter within last 12 months Total Cholesterol within 360 days LDL within 360 days HDL within 360 days Triglycerides within 360 days To be filled at: [facility] [place] [id number] AT [address] [facility] 2024-04-03 11:23:18 Images from the original note were not included. Patient requesting lower dose Notes: 03/24/24 Last Refilled: [facility] [address] Recent Visits Date Type Provider Dept 03/24/24 Office Visit Remy Harp FNP [facility] 02/22/24 Office Visit Remy Harp FNP [facility] 01/31/24 Office Visit CottRemy gottlieb, TELEPHONE SERVICES SALES REPRESENTATIVE [facility] 01/26/24 Office Visit RolyRemy gottlieb, TELEPHONE SERVICES SALES REPRESENTATIVE [facility] 01/06/24 Office Visit Valeria Philippe PA [facility] 12/17/23 Office Visit Remy Harp, TELEPHONE SERVICES SALES REPRESENTATIVE [facility] 11/16/23 Office Visit RolyRemy gottlieb, TELEPHONE SERVICES SALES REPRESENTATIVE [facility] 05/24/23 Office Visit Remy Harp, TELEPHONE SERVICES SALES REPRESENTATIVE [facility] 03/30/23 Office Visit Remy Harp, TELEPHONE SERVICES SALES REPRESENTATIVE [facility] 03/26/23 Office Visit Remy Harp, TELEPHONE SERVICES SALES REPRESENTATIVE [facility] Showing recent visits within past 540 days with a meds authorizing provider and meeting all other requirements Future Appointments Date Type Provider Dept 04/04/24 Appointment Remy Hapr, TELEPHONE SERVICES SALES REPRESENTATIVE [facility] Showing future appointments within next 150 days with a meds authorizing provider and meeting all other requirements SERTraline (ZOLOFT) 50 mg tablet Sig: Take 1 tablet by mouth in the morning. Disp: 90 tablet Refills: 1 Start: 04/02/2024 Class: eRX For: Anxiety and depression; Chest pain, unspecified type Last ordered: 1 year ago (03/24/2023) by RENEE Carr Patient comment: Could I get a 25 MG tablet Psychiatry: Antidepressants Gdzlzc5204/02/2024 07:34 AM Protocol Details Manual Review: Verify no changes in dose in the last 3 months Valid encounter within last 12 months To be filled at: [facility]/pharmacy #[id number] - [place], [place] - [address] AT [facility] [employer] 2024-03-14 10:55:50 Martinez Roberson is a 43 year old male, received forms from [employer] [facility] [place] the forms will be placed in provider's box for fill out and re-fax . Alexia Carson [facility] 2024-03-02 13:45:00 Images from the original note were not included. Venipuncture collection performed by clean technique on the left anticubitus. Total of 1 attempts were made. Slight pressure and a bandage/dressing were applied to the site(s). The patient experienced no complications. The following specimens were processed according to instructions and sent to [facility] laboratories per lab order on 03/02/2024 : LT BLUE SST 1 RED LAV 2 PPT DK GREEN (LiHep) DK GREEN (SodH) BILL DK BLUE (K2) DK BLUE (S) ACD Blood Culture NIPT/NTD [facility] 2024-02-14 16:09:06 Forms pending receipt and review. Marie Ashby LVN [facility] 2024-02-12 18:36:22 Martinez Roberson is a 43 year old male , received fax from [employer] [facility] [place] this form is requesting more information from patients provider . The forms will be in the provider box. Alexia Carson [facility] 2024-02-09 10:15:00 Addended by: LAKESHIA COVARRUBIAS on: 02/11/2024 09:06 AM Modules accepted: Orders Lakeshia Covarrubias PT [facility] 2024-01-20 07:21:23 Images from the original note were not included. Requested Renewals Name from pharmacy: ATORVASTATIN 20 MG TABLET Will file in chart as: ATORVASTATIN 20 mg tablet Sig: TAKE 1 TABLET BY MOUTH EVERYDAY AT BEDTIME Disp: 90 tablet Refills: 1 Start: 01/20/2024 Class: eRX For: Mixed hyperlipidemia Last ordered: 8 months ago (05/12/2023) by RENEE Carr Last refill: 10/12/2023 Rx #: [id number] Cardiovascular: Antilipid - HMG-CoA Reductase Inhibitors Tjhqko2701/20/2024 12:38 AM Protocol Details AST in normal range and within 360 days ALT in normal range and within 360 days Valid encounter within last 12 months Total Cholesterol within 360 days LDL within 360 days HDL within 360 days Triglycerides within 360 days To be filled at: [facility]/pharmacy #[id number] - [place], [place] - [address] AT [facility] AST(SGOT) (U/L) Date Value 05/24/2023 41 (H) ALT(SGPT) (U/L) Date Value 09/16/2018 47 ALTv (U/L) Date Value 05/24/2023 51 (H) Recent Visits Date Type Provider Dept 01/06/24 Office Visit Valeria Philippe PA [facility] 12/17/23 Office Visit Remy Harp, TELEPHONE SERVICES SALES REPRESENTATIVE [facility] 11/16/23 Office Visit Remy Harp FNP [facility] 05/24/23 Office Visit Remy Harp, TELEPHONE SERVICES SALES REPRESENTATIVE [facility] 03/30/23 Office Visit Remy Harp FNP [facility] 03/26/23 Office Visit Remy Harp, TELEPHONE SERVICES SALES REPRESENTATIVE [facility] 03/24/23 Office Visit Remy Harp FNP [facility] 12/15/22 Office Visit Remy Harp FNP [facility] 11/13/22 Office Visit Remy Harp FNP [facility] 10/16/22 Office Visit Remy Harp TELEPHONE SERVICES SALES REPRESENTATIVE [facility] Showing recent visits within past 540 days with a meds authorizing provider and meeting all other requirements Future Appointments Date Type Provider Dept 01/24/24 Appointment Remy Harp FNP [facility] Showing future appointments within next 150 days with a meds authorizing provider and meeting all other requirements [facility] 2024-01-17 09:17:28 NEXT APPT With Family Medicine (Katiuska Brown, TELEPHONE SERVICES SALES REPRESENTATIVE) 01/18/2024 at 3:30 PM [facility] 2024-01-06 07:58:35 Medical Request has been faxed to HIM. Confirmation received. Scanned and uploaded to patients chart. Felicity Rodríguez [facility] 2023-12-31 10:29:18 Please inform the patient that there is a lot to wait till Remy Harp is available to address it, she is currently out of office. Not sure what her return date is. Thank you FM-FAMILY MEDICINE STAFF [facility] 2023-12-30 09:41:40 Patient has been scheduled Kyra Disla [facility] 2023-12-29 11:05:13 Please schedule patient for office visit. Provider does not do telephone encounters T [facility] 2023-12-29 10:55:47 Martinez Roberson is a 43 year old male Pt calling in [facility] for sooner appt, preferably with . Remy harp to refill out paperwork for pt's job. Pt is stating he can even do a phone visit and he is going to either go up to the clinic and drop off the forms or upload them on [email or web address] as soon as he can so we can get the forms started. Please advise. [phone] (home) Brynn Bailey [facility] 2023-12-23 07:17:35 Please review and fill if appropriate. Last Refilled: Disp Refills Start End MABLE meloxicam (MOBIC) 15 mg tablet 42 tablet 0 11/16/2023 -- No Sig: Take 1 tablet by mouth in the morning. Sent to pharmacy as: meloxicam 15 mg tablet Class: eRX Route: Oral Order: [id number] Date/Time Signed: 11/16/2023 13:53 E-Prescribing Status: Receipt [...] [facility] 03/24/23 Office Visit Cotta, Remy, TELEPHONE SERVICES SALES REPRESENTATIVE [facility] 12/15/22 Office Visit Remy Harp FNP [facility] 11/13/22 Office Visit Remy Harp FNP [facility] 10/16/22 Office Visit Remy Harp TELEPHONE SERVICES SALES REPRESENTATIVE [facility] 09/09/22 Office Visit Remy Harp FNP [facility] Showing recent visits within past 540 days with a meds authorizing provider and meeting all other requirements Future Appointments Date Type Provider Dept 01/18/24 Appointment Remy Harp FNP [facility] Showing future appointments within next 150 days with a meds authorizing provider and meeting all other requirements Romana Hinojosa RN [facility] 2023-07-08 09:01:21 Left voicemail to patient to schedule follow up for back pain. CLE CONTROLS ENGINEER Fernando Chapman MA [facility] 2023-03-30 13:05:27 Formatting of this n ote might be different from the original. Called patient per Remy Harp DAT INSTRUCTOR to notify if he needs additional days off he will need to request those days from [facility]. Patient has an appointment there today at 2:00pm. Patient verbalized understanding. [facility] 2023-03-26 14:00:00 Formatting of this n ote is different from the original. Images from the original note were not included. Venipuncture collection performed by clean technique on the left anticubitus. Total of 1 attempts were made. Slight pressure and a bandage/dressing were applied to the site(s). The patient experienced no complications. The following specimens were processed according to instructions and sent to [facility] laboratories per lab order on 03/26/2023 : LT BLUE SST 2 RED LAV PPT DK GREEN (LiHep) DK GREEN (SodH) BILL DK BLUE (K2) DK BLUE (S) ACD Blood Culture NIPT/NTD T [facility] 2023-03-26 09:59:53 Formatting of this n ote might be different from the original. [facility] Everywhere searched for patient records.Information reconciled into the patients chart. [employer] Message sent to patient with open care gaps. [facility] 2023-03-24 12:30:06 Formatting of this n ote [...] last 12 months To be filled at: [facility]/pharmacy #[id number] - [place], [place] - [address] AT [facility] [address] Recent Visits Date Type Provider Dept 12/15/22 [...] [facility]bc F[facility] Med 03/31/22 Office Visit Remy Harp FNP [facility]bc [...] [facility] 06/23/23 Appointment Remy Harp FNP [facility] Showing future appointments within next 150 days with a meds authorizing provider and meeting all other requirements T [facility] 2023-03-19 10:30:50 Formatting of this n ote [...] with steady gait, in no apparent distress, T [facility] 2023-03-19 07:57:16 Formatting of this n ote [...] did test positive for COVID last week. T Edith Shelby RN [facility] 2023-03-19 07:52:00 Formatting of this n ote is different from the original. [facility] Emergency Department Note Patient Name: Martinez Roberson Date of : 1980 42 year old male Treatment Room: [facility] [id number] Primary Care Physician: Katiuska Brown Patient Escorted [...] Height -- BP 03/19/23 0856 115/74 Pulse 03/19/238 64 Resp 03/19/23 0758 20 Temp 03/19/238 36.4 ?C (97.5 ?F) Temp source 03/19/23 075 Oral SpO2 03/19/23757 100 % Measured on 03/19/23 075 Room air Physical Exam Constitutional: General: He [...] 0.01 - 0.09 10*3/uL HEPATIC FUNCTION PANEL (02740) (ALB,T.PRO,BILI T,BU/BC,ALT,AST,ALK PHOS) - Abnormal TOTAL BILI [...] GLUCOSE, BUN, CREATININE, CA) HEPATIC FUNCTION PANEL (37958) (ALB,T.PRO,BILI T,BU/BC,ALT,AST,ALK PHOS) LIPASE TROPONIN I N-TERMINAL PRO-BNP LAB ONLY COVID INTERPRETATION Orders Placed This Encounter Medications acetaminophen (TYLENOL) tablet 650 mg First Provider Eval: ED Events Date/Time Event User Comments 03/19/23810 Medical Screening Begins RDLiban BERMAN ZEB GALEANAANG -- 03/19/23 0811 First Provider Evaluation ZEB [...] Sultana D.O. Physician RTI Billing ID #[id number] RdSharif paris DO 03/19/23 1014 T [facility] EMERGENCY PHYSICIAN STAFF [facility] 2023-02-17 10:37:53 Formatting of this n ote might be different from the original. A user error has taken place: encounter opened in error, closed for administrative reasons. [facility] 2023-02-16 15:04:13 Formatting of this n ote might be different from the original. Images from the original note were not included. Jackie Mckeon FNP Abrego, Stephanie, MA; P Pulmonary Nurse Supplies Rx: nasal pillow mask, heated tubing APAP therapy pressure settings [id number] with EPR:3cmH2O and heated humidification with choice mask. DME : Margi Roberson 1980 [id number] Received CPAP supply refill request from Jackie Mckeon FNP. Last office visit 02/16/23 Follow Up visit - 02/18/24 Last DME sent - 11/24/22 RX sent to [facility] via [place] Berkley Schaefer RN [facility]
--- NOTE | 2025-03-08 13:41 | RAD REPORT ---
EXAM: CT Head Brain Wo Cont HISTORY: powers;Dizziness COMPARISON: 03/17/2024 TECHNIQUE: Multiple contiguous axial images were obtained for a CT of the brain without contrast. Sag ittal and coronal reformats were performed. One or more of the following dose reduction techniques were used: Automated exposure control, adjus tment of the mA and kV according to patient size, and iterative reconstruction. Unless otherwise specified, incidental findings do not require dedicated imaging follow-up. FINDINGS: No evidence of hydrocephalus, intracranial hemorrhage, or extra-axial fluid collection. The brain is normal in morphology. The calvarium is intact. The visualized paranasal sinuses and mastoid air cells are essentially clear . IMPRESSION: No evidence of acute intracranial abnormality.
--- NOTE | 2025-03-08 13:45 | RAD REPORT ---
EXAMINATION: CT LUMBAR SPINE WITHOUT CONTRAST CLINICAL INDICATION: Male, 44 years old. pain s/p injection, concern for spinal leak TECHNIQUE: Axial CT images were obtained through the lumbar spine in soft tissue and bone windows wit hout intravenous contrast. Coronal and Sagittal reformatted images were created from the data set. One or more of the following dose reduction techniques were used: Automated exposure control, adjustm ent of the mA and/ or kV according to patient size, and/or iterative reconstruction. Unless otherwise specified, incidental findings do not require dedicated imaging follow-up. COMPARISON: No prior exam. FINDINGS: For purposes of this dictation, it is assumed that there are 5 non rib-bearing lumbar type vertebrae, and the most caudal fully segmented lumbar vertebra is labeled L5. ALIGNMENT: The lumbar spine demonstrates normal alignment without scoliosis or spondylolisthesis. BONES: Vertebral body heights are preserved. No aggressive osseous lesions. Mild multilevel degenerat sarika changes, most notably with broad-based disc bulge at L5-S1, with endplate remodeling more pronounced on the left, contributing to mild degrees of neural foraminal narrowing worse on the left. DISCS: Intervertebral disc space heights are maintained. LEVELS: Bilateral mild L5-S1 neural foraminal narrowing worse on the left. No significant spinal chino l or other neural foraminal stenosis. No visualized abnormality within the spinal canal. SOFT TISSUE: No soft tissue abnormalities. IMPRESSION: No acute lumbar spine abnormalities. Mild degenerative changes as above. No abnormal fluid collections. If there is concern for a CSF leak, dedicated evaluation by CT myelogr aphy or scintigraphic cisternography could be considered for additional evaluation.
[2025-03-08] MEDS ORDERED: ONDANSETRON 4 MG/2 ML VIAL ONE (14:52)
[2025-03-08] MEDS ORDERED: DIPHENHYDRAMINE 50 MG/ML VIAL ONE (14:52)
[2025-03-08] MEDS ORDERED: METOCLOPRAMIDE 10 MG/2mL INJ ONE (14:52)
[2025-03-08] MEDS ORDERED: NA CHLORIDE 0.9% 1,000 ML ONE (14:53)
[2025-03-08] MEDS ORDERED: NA CHLORIDE 0.9% 50 ML ONE (14:53)
[2025-03-08] MEDS ORDERED: KETOROLAC 30 MG/ML INJ ONE (15:12)
--- NOTE | 2025-03-08 15:49 | EDPHYS ---
Physician Documentation [facility] Name: Sumit Roberson Age: 44 yrs Sex: Male : 1980 Arrival Date: 03/08/2025 Time: 12:18 Bed 3 Private MD: Mariusz Lee HPI: 03/08 12:42 This 44 yrs old Male presents to ER via Ambulatory with complaints of sb4 Dizziness, Headache, Nausea. 12:42 Patient reports headache, nausea, dizziness after having injection in his L5-S1 about a sb4 month ago. He states that his symptoms were intense a few days after then got a little bit better then worse after he had physical therapy yesterday. He states this feels similar to when he had a spinal leak 2-1/2 years ago secondary to a spinal injection and required a blood patch. Historical: - Allergies: 12:30 No Known Allergies; me1 - PMHx: 12:30 fatty liver; High Cholesterol; tear lumbar disc area; me1 - PSHx: 12:30 carpal tunnel B; spinal injection; me1 - Immunization history:: Adult Immunizations up to date. - Infectious Disease History:: Denies. - Social history:: Smoking status: Patient denies any tobacco usage or history of. ROS: 12:42 Constitutional: Negative for fever, chills, and weight loss, sb4 12:42 Abdomen/GI: Positive for nausea, 12:42 Neuro: Positive for dizziness, headache, 12:42 All other systems are negative, Exam: 12:43 Head/Face: Normocephalic, atraumatic. Eyes: Extra-ocular motions intact. Periorbital sb4 areas with no swelling, redness, or edema. Cardiovascular: Regular rate and rhythm with a normal S1 and S2. Respiratory: No increased work of breathing, no retractions or nasal flaring. Abdomen/GI: Soft, non-tender, no distension. Skin: Warm, dry with normal turgor. Normal color with no rashes, no lesions, and no evidence of cellulitis. 12:43 Constitutional: The patient appears alert, awake, pale, uncomfortable, 12:43 ENT: Mouth: Oral mucosa: dry, Vital Signs: 12:27 BP 148 / 91; Pulse 65; Resp 18; Temp 98.2; Pulse Ox 98% ; Weight 117.03 kg; Height 5 me1 ft. 9 in. ; Pain 3/10; 15:00 BP 140 / 87; Pulse 66; Resp 16; Pulse Ox 95% on R/A; db 15:45 BP 132 / 78; Pulse 68; Resp 18; Pulse Ox 95% ; db 12:27 Body Mass Index 38.10 (117.03 kg, 175.26 cm) me1 12:27 Pain Scale: Adult me1 MDM: 12:25 Medical Screening Exam initiated sb4 14:23 Management of patient was discussed with the following: Inside [employer]: On-call 4 anesthesiology, Dr. Woodward, states that patient would not benefit from a blood patch this far after a possible spinal leak given that it has been 3-4 weeks. 16:00 Differential diagnosis: vertigo, migraine, hypertensive TEAGUE, tension Teague. Data reviewed: 4 vital signs, nurses notes, radiologic studies, I have discussed the patient's presentation/case with the attending Emergency Department Physician; and as a result, I will discharge patient. Historians other than the Patient: Spouse/Significant Other: . Counseling: I had a detailed discussion with the patient and/or guardian regarding the historical points, exam findings, and any diagnostic results supporting the discharge/admit diagnosis, radiology results, the need for outpatient follow up, a neurologist, to return to the emergency department if symptoms worsen or persist or if there are any questions or concerns that arise at home. 03/08 12:33 Order name: CT Head Brain wo Cont; Complete Time: 13:47 4 03/08 12:33 Order name: CT Lumbar Spine Wo Con; Complete Time: 13:47 4 03/08 12:33 Order name: IV Saline Lock; Complete Time: 15:08 sb4 Administered Medications: 15:00 Drug: NS 0.9% IV 1000 ml IV at 1000 ml once; to be given as a bolus over 60 minutes db Route: IV; Rate: 1000 ml; Site: left antecubital; 16:17 Follow up: IV Status: Completed infusion bp 15:00 Drug: Ondansetron IVP 4 mg IVP once; over 2 minutes Route: IVP; Site: left antecubital; db 16:17 Follow up: Response: No adverse reaction bp 15:00 Drug: diphenhydrAMINE IVP 25 mg IVP once Route: IVP; Site: left antecubital; db 16:16 Follow up: Response: No adverse reaction bp 15:00 Drug: metoCLOPramide IVP 10 mg IVP once; over 1 to 2 minutes Route: IVP; Site: left db antecubital; 16:16 Follow up: Response: No adverse reaction bp 15:22 Drug: Ketorolac IVP 30 mg IVP once Route: IVP; Site: left antecubital; db 16:16 Follow up: Response: No adverse reaction bp Disposition: 03/09 09:07 Co-signature as Attending Physician, Mariusz Kitchen MD I agree with the assessment and pauline plan of care. Disposition Summary: 03/08/25 15:49 Discharge Ordered Notes: Location: Home sb4 Problem: new sb4 Symptoms: have improved sb4 Condition: Stable sb4 Diagnosis - Dizziness and giddiness sb4 - Migraine without aura, not intractable sb4 Followup: sb4 - With: Connor Rodriguez MD - When: As needed - Reason: Recheck today's complaints, Re-evaluation by your physician Discharge Instructions: - Discharge Summary Sheet sb4 - Migraine Headache, [id number] sb4 - Dizziness, Yoye-al-Dcwl sb4 Forms: - Family Work Release bp - Patient Portal Instructions sb4 - Leadership Thank You Letter sb4 Prescriptions: - ketorolac 10 mg Oral tablet - take 1 tablet ORAL route every 6 hours as needed for pain; maximum total sb4 duration of 5 days from all oral, intranasal, or parenteral formulations; 12 tablet; Refills: 0, Product Selection Permitted - Meclizine 25 mg Oral Tablet - take 1 tablet ORAL route every 8 hours As needed; 30 tablet; Refills: 0, sb4 Product Selection Permitted Signatures: Dispatcher [employer] EDMariusz Adkins MD MD cha Benton, Danielle, RN RN Marilyn Mcdaniels PA-C PA-C sb4 Jesica Salvador RN RN [facility] Jason Ponce RN bp Corrections: (The following items were deleted from the chart) 03/08 12:34 12:34 Head Brain Wo Cont+CT.RAD.BRZ ordered. EDMS EDMS 12:34 12:34 Spine Lumbar Wo Con+CT.RAD.BRZ ordered. EDMS EDMS
--- NOTE | 2025-03-08 15:49 | ER ---
Nurse's Notes [facility] Name: Sumit Roberson Age: 44 yrs Sex: Male : 1980 Arrival Date: 03/08/2025 Time: 12:18 Bed 3 Private MD: Diagnosis: Dizziness and giddiness;Migraine without aura, not intractable Presentation: 03/08 12:27 Chief complaint: Patient states: had injections in spine 3-4 weeks ago and a few days me1 after injections he started having ESPINAL, nausea and dizziness. Symptoms improved but did not go away and yesterday patient had PT and today symptoms are worse. Coronavirus screen: Vaccine status: Patient reports receiving the 2nd dose of the covid vaccine. Ebola Screen: No symptoms or risks identified at this time. Initial Sepsis Screen: Does the patient meet any 2 criteria? No. Patient's initial sepsis screen is negative. Does the patient have a suspected source of infection? No. Patient's initial sepsis screen is negative. Risk Assessment: Do you want to hurt yourself or someone else? Patient reports no desire to harm self or others. Onset of symptoms is unknown. 12:27 Method Of Arrival: Ambulatory me1 12:27 Acuity: ISABEL 3 me1 Historical: - Allergies: 12:30 No Known Allergies; me1 - PMHx: 12:30 fatty liver; High Cholesterol; tear lumbar disc area; me1 - PSHx: 12:30 carpal tunnel B; spinal injection; me1 - Immunization history:: Adult Immunizations up to date. - Infectious Disease History:: Denies. - Social history:: Smoking status: Patient denies any tobacco usage or history of. Screenin:14 [facility] ED Fall Risk Assessment (Adult) History of falling in the last 3 months, db including since admission No falls in past 3 months (0 pts) Confusion or Disorientation No (0 pts) Intoxicated or Sedated No (0 pts) Impaired Gait No (0 pts) Mobility Assist Device Used No (0 pt) Altered Elimination No (0 pt) Score/Fall Risk Level 0 - 2 = Low Risk Oriented to surroundings, Educated pt \T\ family on fall prevention, incl call for assistance when getting out of bed. Abuse screen: Denies threats or abuse. Denies injuries from another. Nutritional screening: No deficits noted. Tuberculosis screening: No symptoms or risk factors identified. Assessment: 15:00 Reassessment: Patient appears in no apparent distress at this time. Patient and/or db family updated on plan of care and expected duration. Pain level reassessed. Patient is alert, oriented x 3, equal unlabored respirations, skin warm/dry/pink. General: Appears in no apparent distress. uncomfortable, Behavior is calm, cooperative. Pain: Complains of pain in head. Neuro: Level of Consciousness is awake, alert, obeys commands, Oriented to person, place, time, situation. Respiratory: Airway is patent Respiratory effort is even, unlabored, Respiratory pattern is regular, symmetrical. Vital Signs: 12:27 BP 148 / 91; Pulse 65; Resp 18; Temp 98.2; Pulse Ox 98% ; Weight 117.03 kg; Height 5 me1 ft. 9 in. ; Pain 3/10; 15:00 BP 140 / 87; Pulse 66; Resp 16; Pulse Ox 95% on R/A; db 15:45 BP 132 / 78; Pulse 68; Resp 18; Pulse Ox 95% ; db 12:27 Body Mass Index 38.10 (117.03 kg, 175.26 cm) me1 12:27 Pain Scale: Adult me1 ED Course: 12:20 Patient arrived in ED. mr 12:25 Marilyn Merrill PA-C is PHCP. sb4 12:25 Mariusz Kitchen MD is Attending Physician. sb4 12:30 Triage completed. me1 12:30 Arm band placed on Patient placed in waiting room. me1 13:21 CT Head Brain wo Cont In Process Unspecified. EDMS 13:21 CT Lumbar Spine Wo Con In Process Unspecified. EDMS 14:46 Emily Crews, RN is Primary Nurse. db 15:08 Inserted saline lock: 20 gauge in left antecubital area, using aseptic technique. ts3 Flushed with 10 mL NS. 15:15 Patient has correct armband on for positive identification. Call light in reach. Side db rails up X 1. Pulse ox on. NIBP on. Warm blanket given. Pillow given. 15:48 Connor Rodriguez MD is Referral Physician. sb4 16:16 No provider procedures requiring assistance completed. IV discontinued, intact, bp bleeding controlled, No redness/swelling at site. Pressure dressing applied. Administered Medications: 15:00 Drug: NS 0.9% IV 1000 ml IV at 1000 ml once; to be given as a bolus over 60 minutes db Route: IV; Rate: 1000 ml; Site: left antecubital; 16:17 Follow up: IV Status: Completed infusion bp 15:00 Drug: Ondansetron IVP 4 mg IVP once; over 2 minutes Route: IVP; Site: left antecubital; db 16:17 Follow up: Response: No adverse reaction bp 15:00 Drug: diphenhydrAMINE IVP 25 mg IVP once Route: IVP; Site: left antecubital; db 16:16 Follow up: Response: No adverse reaction bp 15:00 Drug: metoCLOPramide IVP 10 mg IVP once; over 1 to 2 minutes Route: IVP; Site: left db antecubital; 16:16 Follow up: Response: No adverse reaction bp 15:22 Drug: Ketorolac IVP 30 mg IVP once Route: IVP; Site: left antecubital; db 16:16 Follow up: Response: No adverse reaction bp Medication: 15:13 VIS not applicable for this client. db Outcome: 15:49 Discharge ordered by MD. de 16:16 Discharged to home ambulatory, with family, bp 16:16 Condition: stable 16:16 Discharge instructions given to patient, family, Instructed on discharge instructions, follow up and referral plans. medication usage, Demonstrated understanding of instructions, follow-up care, medications, Prescriptions given X 2, 16:17 Patient left the ED. bp Signatures: Dispatcher [employer] EDWA Pratibha Adams, Reg Reg mr Jason Ponce, CANDE CASTELLON bp Eimly Crews, Marilyn Neumann RN PA-Madhu PA-Madhu sb4 Jesica Salvador RN RN me1 Floresita Ball ts3
[2025-03-08 18:00] VITALS: TEMP 98.2
[2025-03-08 18:02] VITALS: BP 132/78; O2SAT 95
== END 2025-03-08 16:17 | disposition home or self-care (01) ==
LOC: ER 12:18
DX: G43.009 Migraine without aura, not intractable, without status migrainosus (principal); R42 Dizziness and giddiness
CPT/HCPCS: 96361; 72131; 70450; 96375; 96374; 99284; J2765; J1200; J2405; J7030

== ENCOUNTER 2025-05-07 16:31 | Emergency (ER) | payer OTHER, SELFPAY ==
--- OUTSIDE RECORDS SUMMARY | 2025-05-07 16:50 | XMS REPORT | Continuity of Care Document ---
Author Name Unknown Address [address] [facility] [address] [place] [address] [facility] Address 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 Role Phone REMY HARP Primary Care Physician Unavailab REMY Craft Attending Clinician Unavailable Remy Laws Attending Clinician [phone] Doctor Unassigned, [place] Attending Clinician U navailable Lab, Ang - Db Attending Clinician Unavailable BRITTON YANEZ Attending Clinician UnavailLakeshia Avina PT Attending Clinician UnavailLarisa Lay MD Attending Clinician [phone] LARISA IRCHARDS Attending Clinician UnavailLARISA Lay Attending Clinician UnavailValeria Montes Attending Clinician [phone] VALERIA PHILIPPE Attending Clinician Unavailable Kaykay Merrill PTA Attending Clinician Unavail able ALAINA CHAPIN Attending Clinician Unavailable STEEV WILKES Attending Clinician Unavail able STEVE WILKES Attending Clinician Unavail able Alaina Johnson Attending Clinician [phone] Renny Merrill PTA Attending Clinician Unavaila ble Unknown, Attending Attending Clinician Unavailab JACKIE Sampson Attending Clinician UnavailJACKIE Koenig Attending Clinician UnavailKAI Royal Attending Clinician Unavailable Kai Davidson MD Attending Clinician Katiuska DATA PROCESSING CONSULTANT, Remy Attending Clinician [phone] Doctor Unassigned, [place] Attending Clinician U sylvia Merrill SALMON GILLNET VESSEL OPERATOR, Renny Dukes Attending Clinician Unavaila ryan Richards MD, Lraisa Munoz Attending Clinician [phone] Garfield BLACKWOOD, Kaykay Torres Attending Clinician Unavail able AURELIO MCDONALD Attending Clinician Unavailable Mcdonald DATA PROCESSING CONSULTANT, Aurelio Attending Clinician [phone] Unknown, Attending Attending Clinician Unavailab Valeria Ramey Attending Clinician [phone] Daisy PT, Lakeshia Attending Clinician Unavailmelissa Pruitt DATA PROCESSING CONSULTANT, Noel Attending Clinician [phone] NOEL PRUITT Attending Clinician Unavailable Renata BILLS, Britton Sharp Attending Clinician [phone] Chau BILLS, Elise Attending Clinician [phone] ELISE RITCHIE Attending Clinician Unavailable Lab, Ang - Db Attending Clinician Unavailable Sandra Taylor MA L Attending Clinician Unavailab SHARIF Yuen Attending Clinician Unavailable SHARIF SULTANA Attending Clinician Unavailable KadeSharif paris DO Attending Clinician [phone] Bartolo DURAN, [place] Attending Clinician [phone] ENID MCFARLAND Attending Clinician Unavailable Aurelio Abarca PTA Attending Clinician Unavail able Sydni BLACKWOOD, Sarah Gottlieb Attending Clinician Unav [facility] Attending Clinician Unavaila Alireza Troy MD Attending Clinician [phone] ALIREZA SHIPMAN Attending Clinician Unavaila ALIREZA Troy Attending Clinician Unavaila ryan Casarez PT, Charity Attending Clinician Un available Kelvin Macdonald Attending Clinician [phone] Lety BILLS, Kai Attending Clinician [phone] Nito BILLS, Joselito Attending Clinician [phone] Abdulaziz BILLS, Dhara Attending Clinician [phone] DHARA CINTRON Attending Clinician Unavailable John PT, Lindy Velasco Attending Clinician Unavail able Hill Santos Attending Clinician [phone] HILL BEDOLLA Attending Clinician UnavailREFUGIO Jackson Attending Clinician Unavail able Only, Ang Db Test Attending Clinician UnavailHI Canseco Attending Clinician Unavaila ryan Huiunmaria eugenia DATA PROCESSING CONSULTANT, Hi Dukes Attending Clinician [phone] Alejandra Vargas MD Attending Clinician + [phone] [facility] Attending Clinician Unavailable ALEJANDRA VARGAS Attending Clinician Fady DURAN, Nitza Attending Clinician [phone] Ross BILLS, Ev Brooke Attending Clinician [phone] NITZA MADRIGAL Attending Clinician Unavailable Serina Tan RN Attending Clinician Unavailab maria eugenia DURAN, Christy Sharp Attending Clinician + [phone] CHRISTY ALICEA Attending Clinician Unavailab Judith Sawant MD Attending Clinician [phone] Aleksandra Velez Attending Clinician [phone] ALEKSANDRA GUPTA Attending Clinician Unavailable JENIFER MACDONALD Attending Clinician UnavailRobin Anyaa MD Attending Clinician [phone] [facility] Attending Clinician Unavailable Jenifer Gerber Attending Clinician [phone] JUDITH KHOURY Attending Clinician UnavailKERRI Arreguin Attending Clinician Unavailable Pob, [facility] Main Attending Clinician UnavailRefugio Jackson DO Attending Clinician [phone] Only, Adc Test Attending Clinician Unavailable Britton Costello MD Attending Clinician [phone] Lab, Adc Fam Pob I Attending Clinician [...] Number Effective Date Expirati on Date Source [facility] [id number] 2016 00:00:00 Problems Condition Name Condition Details Condition Category Status Onset Date Resolution Date Last Treatment Date Treating Clinician Comments Source Right upper quadrant pain Right upper quadrant pain Disease Active 4- 00:00: 00 [facility] Chronic pain of right ankle Chronic pain of right ankle Disease Active 4- 00:00: 00 [facility] BMI 40.0-44.9, adult BMI 40.0-44.9, adult Disease Active 2023-07 2- 00:00: 00 [facility] Degenerati on of interverte bral disc of lumbar region with discogenic back pain Degenerati on of interverte bral disc of lumbar region with discogenic back pain Disease Active 2023-07 0-09 00:00: 00 [facility] Episodic tension-ty pe headache, not intractabl e Episodic tension-ty pe headache, not intractabl e Disease Active 03-24 00:00: 00 [facility] Upper respirator y tract infection, unspecifie d type Upper respirator y tract infection, unspecifie d type Disease Active 7-15 00:00: 00 [facility] Obesity (BMI 30-39.9) Obesity (BMI 30-39.9) Disease Active 2022-07 0-23 00:00: 00 [facility] Pharyngiti s, acute Pharyngiti s, acute Disease Active 03-26 00:00: 00 [facility] Panic disorder without agoraphobi a Panic disorder without agoraphobi a Disease Active 03-26 00:00: 00 [facility] Arthralgia of knee Arthralgia of knee Disease Active 03-26 00:00: 00 Overview: Formattin g of this note might be different from the original. recurrent pain and locking right knee since [employer]. [facility] Allergic rhinitis Allergic rhinitis Disease Active 9-08 00:00: 00 [facility] Abnormal liver function Abnormal liver function Disease Active 9- 00:00: 00 [facility] Chest pain, unspecifie d type Chest pain, unspecifie d type Disease Active 9-06 00:00: 00 [facility] Obstructiv e sleep apnea syndrome Obstructiv e sleep apnea syndrome Disease Active 3-31 00:00: 00 [facility] Allergy, initial encounter Allergy, initial encounter Disease Active 2021-07 2-28 00:00: 00 [facility] Essential hypertensi on Essential hypertensi on Disease Active 9- 00:00: 00 [facility] Health examinatio n of defined subpopulat ion Health examinatio n of defined subpopulat ion Disease Active 8- 00:00: 00 [facility] Elevated blood pressure reading in office without diagnosis of hypertensi on Elevated blood pressure reading in office without diagnosis of hypertensi on Disease Active 8- 00:00: 00 [facility] Acute bilateral low back pain without sciatica Acute bilateral low back pain without sciatica Disease Active 5- 00:00: 00 [facility] Weakness of both hips Weakness of both hips Disease Active 5-02 00:00: 00 [facility] 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 Disease Active 5-02 00:00: 00 [facility] Weakness of both hips Weakness of both hips Disease Active 5-02 00:00: 00 [facility] Acute left-sided low back pain with left-sided sciatica Acute left-sided low back pain with left-sided sciatica Disease Active -12 00:00: 00 [facility] Mixed hyperlipid emia Mixed hyperlipid emia Disease Active 4-12 00:00: 00 [facility] Fatty liver Fatty liver Disease Active 2019-07 2-10 00:00: 00 [facility] Vitamin D deficiency Vitamin D deficiency Disease Active 2019-07 1-25 00:00: 00 [facility] Annular tear of lumbar disc Annular tear of lumbar disc Disease Active 04-02 00:00: 00 [facility] Left thigh pain Left thigh pain Disease Active 04-02 00:00: 00 [facility] DDD (degenerat sarika disc disease), lumbar DDD (degenerat sarika disc disease), lumbar Disease Active 04-02 00:00: 00 [facility] 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 Disease Active 04-02 00:00: 00 [facility] Myofascial pain Myofascial pain Disease Active 11-23 00:00: 00 [facility] Cervical spondylosi s with radiculopa thy Cervical spondylosi s with radiculopa thy Disease Active 11-23 00:00: 00 [facility] Elevated hemoglobin Elevated hemoglobin Disease Active 09-25 00:00: 00 [facility] Crushing injury of finger Crushing injury of finger Disease Active 02-11 00:00: 00 [facility] Varicocele Varicocele Disease Active 11-30 00:00: 00 [facility] Depression Depression Disease Active 11-11 00:00: 00 [facility] Obesity (BMI 30-39.9) Obesity (BMI 30-39.9) Disease Active 11-21 00:00: 00 [facility] Hepatosple nomegaly Hepatosple nomegaly Disease Active 11-09 00:00: 00 [facility] Abnormal LFTs Abnormal LFTs Disease Active 11-09 00:00: 00 [facility] Anxiety disorder Anxiety disorder Disease Active 11-06 00:00: 00 [facility] Hyperchole sterolemia Hyperchole sterolemia Disease Active 11-06 00:00: 00 [facility] Anxiety Anxiety Disease Active 07-19 00:00: 00 [facility] Obesity Obesity Disease Active 07-19 00:00: 00 [facility] Hyperlipid emia Hyperlipid emia Disease Active 07-19 00:00: 00 [facility] Perineal pain in male Perineal pain in male Disease Resolve d 11-11 00:00: 00 2019-04-02 00:00:00 2019-04-02 21:42:55 [facility] Scrotal pain Scrotal pain Disease Resolve d 11-11 00:00: 00 2019-04-02 00:00:00 2019-04-02 21:42:57 [facility] Left wrist pain Left wrist pain Disease Resolve d 2016-07 00:00: 00 2019-04-02 00:00:00 2019-04-02 21:42:52 [facility] Allergies, Adverse Reactions, Alerts Allergy Name Allergy Type Status Severity Reaction(s) Onset Date Inactive Date Treating Clinician Comments Source Ibuprofe n Propensi ty to adverse reaction s Active Swelling 01-14 00:00: 00 Lips swell, taken it since episode of swelling without issues [facility] IBUPROFE N DRUG INGREDI Active Swelling 01-14 00:00: 00 [facility] NO KNOWN ALLERGIE S Drug Class Active [facility] Social History Social Habit Start Date Stop Date Quantity Comments Source History SDOH Alcohol Frequency [facility] History SDOH Alcohol Std Drinks [facility] History SDOH Alcohol Binge [facility] Gender identity [facility] of Social function 2024-10-25 00:00:00 2024-10-25 00:00:00 [facility] Alcoholic beverage intake 2024-10-25 00:00:00 2024-10-25 00:00:00 Current drinker of alcohol (finding) [facility] Alcohol intake 2023-11-16 00:00:00 2023-11-16 00:00:00 Current drinker of alcohol (finding) [facility] Exposure to SARS-CoV-2 (event) 2022-12-05 00:00:00 2022-12-15 13:01:00 Not sure [facility] Tobacco use and exposure 2022-03-16 00:00:00 2022-03-16 00:00:00 Smokeless tobacco non-user [facility] Alcohol Comment 2016-11-06 00:00:00 2016-11-06 00:00:00 socially [facility] Sex assigned at 1980 00:00:00 1980 00:00:00 [facility] Smoking Status Start Date Stop Date Source Never smoked tobacco [facility] Medications Ordered Medication Name Filled Medication Name Start Date Stop Date Current Medication? Ordering Clinician Indication Dosage Frequency Signature (SIG) Comments Components Source atorvastati n 40 mg tablet 01-01 00:00: 00 Yes [id number] 40mg Take 1 tablet by mouth at bedtime. [facility] atorvastati n 20 mg tablet 2023-07 00:00: 00 01-01 00:00 :00 No [id number] 20mg Take 1 tablet by mouth at bedtime. [facility] meloxicam 7.5 mg tablet 2023-07 00:00: 00 Yes [id number] 7.5mg Take 1 tablet by mouth in the morning. [facility] cyclobenzap rine 5 mg tablet 2023-07 00:00: 00 10-25 00:00 :00 No [id number] 5mg Take 1 tablet by mouth in the morning and 1 tablet at noon and 1 tablet in the evening. [facility] methylPREDN ISolone (MEDROL, VENITA,) 4 mg tablets 2023-07 00:00: 00 05-02 04:59 :00 No [id number] Take by mouth SEE-INSTRU CTIONS for 5 days. follow package directions [facility] ketorolac (TORADOL) injection 30 mg 04-03 20:45: 00 04-03 19:55 :00 No [id number] 30mg 30 mg, Intramuscu lar, ONCE, 1 dose, On Wed04/03/24 at 1545, Routine [facility] amitriptyli ne 25 mg tablet 04-03 00:00: 00 Yes [id number] 25mg Take 1 tablet by mouth at bedtime. [facility] SERTraline (ZOLOFT) 50 mg tablet 04-03 00:00: 00 04-03 00:00 :00 No [id number] 50mg Take 1 tablet by mouth in the morning. [facility] rizatriptan 5 mg tablet 03-24 00:00: 00 Yes [id number] 5mg Take 1 tablet by mouth as needed for Migraine (may repeat dose after 1x after at least 2 hrs). May repeat in 2 hours if needed [facility] methylPREDN ISolone (MEDROL, VENITA,) 4 mg tablets 03-24 00:00: 00 03-30 04:59 :00 No [id number] Take by mouth SEE-INSTRU CTIONS for 5 days. follow package directions [facility] meloxicam 15 mg tablet 02-21 00:00: 00 05-31 00:00 :00 No [id number] 15mg Take 1 tablet by mouth every morning. [facility] AZITHROMYCI N 250 mg tablet 01-30 00:00: 00 04-03 00:00 :00 No [id number] 500MG on day 1, then 250mg days 2-5 [facility] albuterol 90 mcg/actuati on inhaler 01-25 00:00: 00 04-03 00:00 :00 No [id number] 2{puff} Inhale 2 Puffs every 6 (six) hours as needed for Wheezing or Shortness of Breath. [facility] bromphenira mine-pseudo ephedrine-D M (BROMFED DM) 2-30-10 mg/5 mL syrup 01-25 00:00: 00 02-05 04:59 :00 No [id number] 10mL Take 10 mL by mouth 4 (four) times daily as needed for Congestion /Allergies for up to 10 days. [facility] ATORVASTATI N 20 mg tablet 2024-0 7-05 00:00: 00 06-02 00:00 :00 No [id number] TAKE 1 TABLET BY MOUTH EVERYDAY AT BEDTIME [facility] fluticasone propionate 50 mcg/actuati on nasal spray 01-18 00:00: 00 Yes [id number] 2{spray } Use 2 Sprays in each nostril in the morning. [facility] benzonatate 200 mg capsule 01-18 00:00: 00 04-03 00:00 :00 No [id number] 200mg Take 1 capsule by mouth 3 (three) times daily as needed for Cough. [facility] predniSONE 20 mg tablet 01-18 00:00: 00 01-24 04:59 :00 No [id number] 40mg Take 2 tablets by mouth in the morning for 5 days. [facility] MELOXICAM 15 mg tablet 607 00:00: 00 02-21 00:00 :00 No [id number] 15mg TAKE 1 TABLET BY MOUTH EVERY DAY IN THE MORNING [facility] gabapentin 100 mg capsule 5-31 00:00: 00 04-03 00:00 :00 No [id number] 100mg Take 1 capsule by mouth in the morning and 1 capsule at noon and 1 capsule in the evening. [facility] cyclobenzap rine 5 mg tablet 430 00:00: 00 04-26 00:00 :00 No [id number] 5mg Take 1 tablet by mouth in the morning and 1 tablet at noon and 1 tablet in the evening. [facility] meloxicam (MOBIC) 15 mg tablet 430 00:00: 00 12-23 00:00 :00 No [id number] 15mg Take 1 tablet by mouth in the morning. [facility] dexamethaso ne (DECADRON) injection 10 mg 11-08 20:00: 00 11-08 19:03 :00 No [id number] 10mg 10 mg, Intramuscu lar, ONCE, 1 dose, On Wed11/09/23 at 1500, Routine [facility] ketorolac (TORADOL) injection 30 mg 11-08 19:45: 00 11-08 19:03 :00 No [id number] 30mg 30 mg, Intramuscu lar, ONCE, 1 dose, On Wed11/09/23 at 1445, Routine [facility] methocarbam oL 750 mg tablet 11-08 00:00: 00 11-16 04:59 :00 No [id number] 750mg Take 1 tablet by mouth 4 (four) times daily for 7 days. [facility] meloxicam (MOBIC) 15 mg tablet 11-08 00:00: 00 11-15 00:00 :00 No [id number] 15mg Take 1 tablet by mouth in the morning for 7 days. [facility] PROPRANOLOL 10 mg tablet 2022-07 00:00: 00 11-15 00:00 :00 No [id number] 10mg TAKE 1 TABLET BY MOUTH 2 (TWO) TIMES DAILY NEEDED FOR PAIN (SCALE 4-6). [facility] sulfur hexafluorid e microsphr (LUMASON) injection 5 mL 2022-07 21:45: 00 06-07 21:46 :00 No [id number] 5mL 5 mL, Intravenou s, ONCE, 1 dose, On Wed06/07/23 at 1545, Routine
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 Restricted medication : ELISE RITCHIE [facility] nitroglycer in (NITROSTAT) sublingual tablet 0.8 mg 2022-07 17:00: 00 05-26 16:05 :00 No [id number] .8mg 0.8 mg, Sublingual , ONCE, 1 dose, On Wed05/26/23 at 1100, Routine [facility] iopamidol (ISOVUE 370-500 mL) injection 80 mL 2022-07 16:11: 00 05-26 16:10 :00 No [id number] 80mL 80 mL, Intravenou s, ONCE, 1 dose, On Wed05/26/23 at 1030, Routine [facility] metoprolol tartrate (LOPRESSOR) tablet 100 mg 2022-07 15:35: 00 05-26 15:35 :00 No [id number] 100mg 100 mg, Oral, ONCE, 1 dose, On Wed05/26/23 at 1000, Routine [facility] ATORVASTATI N 20 mg tablet 2022-07 0-25 00:00: 00 01-20 00:00 :00 No [id number] TAKE 1 TABLET BY MOUTH EVERYDAY AT BEDTIME [facility] SERTraline (ZOLOFT) 50 mg tablet 03-24 00:00: 00 04-02 00:00 :00 No [id number] 50mg Take 1 tablet by mouth in the morning. [facility] propranoloL 10 mg tablet 03-24 00:00: 00 06-21 00:00 :00 No [id number] 10mg Take 1 tablet by mouth 2 (two) times daily as needed for Pain (scale 4-6). [facility] acetaminoph en (TYLENOL) tablet 650 mg 03-19 13:30: 00 03-19 13:56 :00 No 650mg 650 mg, Oral, ONCE, 1 dose, On Wed03/19/23 at 0830, PEGGY [facility] meloxicam 7.5 mg tablet 12-09 00:00: 00 11-15 00:00 :00 No [id number] 7.5mg Take 1 tablet by mouth 2 (two) times daily as needed for Pain (scale 7-10). [facility] tiZANidine 4 mg tablet 5-24 00:00: 00 03-24 00:00 :00 No [id number] 4mg Take 1 tablet by mouth 3 (three) times daily as needed for Pain (scale 7-10). [facility] dexamethaso ne sod phos PF injection 15 mg 08-14 16:30: 00 08-14 15:24 :[id number] [facility] NaCl 0.9% (NS) injection 4.5 mL 08-14 16:15: 00 08-14 15:25 :[id number] [facility] lidocaine 1% (PF) (XYLOCAINE) injection 10 mL 08-14 16:15: 00 08-14 15:25 :[id number] [facility] lactated ringers IV infusion 500 mL 08-14 15:30: 00 08-14 14:50 :[id number] [facility] meloxicam 7.5 mg tablet 08-12 00:00: 00 03-26 00:00 :00 No [id number] 7.5mg Take 1 tablet by mouth 2 (two) times daily as needed for Pain (scale 4-6) for up to 180 doses. [facility] methocarbam oL 500 mg tablet 08-12 00:00: 00 11-11 04:59 :00 No [id number] 500mg Take 1 tablet by mouth at bedtime for 90 days. [facility] methylPREDN ISolone (MEDROL, VENITA,) 4 mg tablets 2021-07 00:00: 00 06-21 05:59 :00 No [id number] Take by mouth SEE-INSTRU CTIONS for 5 days. follow package directions [facility] ATORVASTATI N 20 mg tablet 2021-07 00:00: 00 Yes [id number] TAKE 1 TABLET BY MOUTH EVERYDAY AT BEDTIME [facility] BUSPIRONE 5 mg tablet 2021-07 0-07 00:00: 00 11-15 00:00 :00 No [id number] 5mg TAKE 1 TABLET BY MOUTH IN THE MORNING AND 1 TABLET IN THE EVENING. [facility] SERTraline (ZOLOFT) 50 mg tablet 9-13 00:00: 00 03-24 00:00 :00 No [id number] 50mg Take 1 tablet by mouth in the morning. [facility] busPIRone 5 mg tablet 9-13 00:00: 00 04-24 00:00 :00 No [id number] 5mg Take 1 tablet by mouth in the morning and 1 tablet in the evening. [facility] losartan 25 mg tablet 9-13 00:00: 00 03-31 00:00 :00 No [id number] 25mg Take 1 tablet by mouth in the morning. [facility] PANTOPRAZOL E 40 mg EC tablet 5-19 00:00: 00 06-15 00:00 :00 No [id number] TAKE 1 TABLET BY MOUTH EVERY DAY [facility] atorvastati n 20 mg tablet 4-12 00:00: 00 06-08 00:00 :00 No [id number] 20mg Take 1 tablet by mouth at bedtime. [facility] meclizine 25 mg tablet 2020-07- 00:00: 00 01-14 00:00 :00 No [id number] 25mg Take 1 tablet by mouth every 6 (six) hours. [facility] KETOTIFEN FUMARATE, BULK, MISC 2020-07 215 00:00: 00 01-14 00:00 :00 No [facility] EPINEPHrine 0.3 mg/0.3 mL injection 2020-07 00:00: 00 11-15 00:00 :00 No [facility] fexofenadin e 180 mg tablet 2020-07 00:00: 00 01-14 00:00 :00 No [id number] 360mg Take 2 tablets by mouth 2 (two) times daily. [facility] famotidine 20 mg tablet 2020-07 00:00: 00 10-28 00:00 :00 No [id number] 20mg Take 1 tablet by mouth 2 (two) times daily. [facility] naproxen 500 mg tablet 8-23 00:00: 00 04-03 00:00 :00 No [id number] 500mg Take 1 tablet by mouth 2 (two) times daily as needed for Pain (scale 4-6) for up to 21 days. [facility] atorvastati n 20 mg tablet 12-11 00:00: 00 10-28 00:00 :00 No [id number] 20mg Take 1 tablet by mouth at bedtime. [facility] atorvastati n 10 mg tablet 2019-07 00:00: 00 10-31 00:00 :00 No [id number] 10mg Take 1 tablet by mouth at bedtime. [facility] Immunizations Ordered Immunization Name Filled Immunization Name Date Status Comments Source TDAP 2024-04-04 14:12:34 Completed [facility] Influenza Virus Vaccine (3+ yrs) 2024-04-04 14:12:34 Completed [facility] Influenza Virus Vaccine 2024-04-04 14:12:34 Completed [facility] TD, NOS 2024-04-04 14:12:34 Completed [facility] Influenza Virus Vaccine Quad .5 mL IM 6+ MO (FLUZONE/FLULAVAL/F LUARIX) 2024-04-04 14:12:34 Completed [facility] Pneumococcal Polysaccharide, PPSV23 (PNEUMOVAX) 2024-04-04 14:12:34 Completed [facility] SARS-COV-2 COVID-19 PFIZER VACCINE 2024-04-04 14:12:34 Completed [facility] Influenza Virus Vaccine Quad IM, Preserv and ABX Free 6 MO-64 YRS (FLUCELVAX) 2024-04-04 14:12:34 Completed [facility] Flu Injectable MDCK Pres-Free (FLUCELVAX) 2024-04-04 14:12:34 Completed [facility] Influenza Virus Vaccine (3+ yrs) 2024-04-02 00:00:00 Completed [facility] Influenza Virus Vaccine 2024-04-02 00:00:00 [facility] [facility] SARS-COV-2 COVID-19 PFIZER VACCINE 2024-04-02 00:00:00 Completed [facility] Influenza Virus Vaccine Quad IM, Preserv and ABX Free 6 MO-64 YRS (FLUCELVAX) 2024-04-02 00:00:00 Completed [facility] Influenza Virus Vaccine 2024-03-02 14:30:00 Completed [facility] TDAP 2023-12-30 08:45:00 Completed [facility] Influenza Virus Vaccine (3+ yrs) 2023-12-30 08:45:00 Completed [facility] Influenza Virus Vaccine 2023-12-30 08:45:00 Completed [facility] TD, NOS 2023-12-30 08:45:00 Completed [facility] Influenza Virus Vaccine Quad .5 mL IM 6+ MO (FLUZONE/FLULAVAL/F LUARIX) 2023-12-30 08:45:00 Completed [facility] Pneumococcal Polysaccharide, PPSV23 (PNEUMOVAX) 2023-12-30 08:45:00 Completed [facility] SARS-COV-2 COVID-19 PFIZER VACCINE 2023-12-30 08:45:00 Completed [facility] Influenza Virus Vaccine Quad IM, Preserv and ABX Free 6 MO-64 YRS (FLUCELVAX) 2023-12-30 08:45:00 Completed [facility] TDAP 2023-12-29 00:00:00 Completed [facility] Influenza Virus Vaccine (3+ yrs) 2023-12-29 00:00:00 Completed [facility] Influenza Virus Vaccine 2023-12-29 00:00:00 Completed [facility] TD, NOS 2023-12-29 00:00:00 Completed [facility] Influenza Virus Vaccine Quad .5 mL IM 6+ MO (FLUZONE/FLULAVAL/F LUARIX) 2023-12-29 00:00:00 Completed [facility] Pneumococcal Polysaccharide, PPSV23 (PNEUMOVAX) 2023-12-29 00:00:00 Completed [facility] SARS-COV-2 COVID-19 PFIZER VACCINE 2023-12-29 00:00:00 Completed [facility] Influenza Virus Vaccine Quad IM, Preserv and ABX Free 6 MO-64 YRS (FLUCELVAX) 2023-12-29 00:00:00 Completed [facility] TDAP 2023-12-29 00:00:00 Completed [facility] TD, NOS 2023-12-29 00:00:00 Completed [facility] Influenza Virus Vaccine Quad .5 mL IM 6+ MO (FLUZONE/FLULAVAL/F LUARIX) 2023-12-29 00:00:00 Completed [facility] Pneumococcal Polysaccharide, PPSV23 (PNEUMOVAX) 2023-12-29 00:00:00 Completed [facility] TDAP 2023-12-23 08:45:00 Completed [facility] Influenza Virus Vaccine (3+ yrs) 2023-12-23 08:45:00 Completed [facility] Influenza Virus Vaccine 2023-12-23 08:45:00 Completed [facility] TD, NOS 2023-12-23 08:45:00 Completed [facility] Influenza Virus Vaccine Quad .5 mL IM 6+ MO (FLUZONE/FLULAVAL/F LUARIX) 2023-12-23 08:45:00 Completed [facility] Pneumococcal Polysaccharide, PPSV23 (PNEUMOVAX) 2023-12-23 08:45:00 Completed [facility] SARS-COV-2 COVID-19 PFIZER VACCINE 2023-12-23 08:45:00 Completed [facility] Influenza Virus Vaccine Quad IM, Preserv and ABX Free 6 MO-64 YRS (FLUCELVAX) 2023-12-23 08:45:00 Completed [facility] TDAP 2023-12-23 00:00:00 Completed [facility] Influenza Virus Vaccine (3+ yrs) 2023-12-23 00:00:00 Completed [facility] Influenza Virus Vaccine 2023-12-23 00:00:00 Completed [facility] TD, NOS 2023-12-23 00:00:00 Completed [facility] Influenza Virus Vaccine Quad .5 mL IM 6+ MO (FLUZONE/FLULAVAL/F LUARIX) 2023-12-23 00:00:00 Completed [facility] Pneumococcal Polysaccharide, PPSV23 (PNEUMOVAX) 2023-12-23 00:00:00 Completed [facility] SARS-COV-2 COVID-19 PFIZER VACCINE 2023-12-23 00:00:00 Completed [facility] Influenza Virus Vaccine Quad IM, Preserv and ABX Free 6 MO-64 YRS (FLUCELVAX) 2023-12-23 00:00:00 Completed [facility] TDAP 2023-12-17 10:30:00 Completed [facility] TD, NOS 2023-12-17 10:30:00 Completed [facility] Influenza Virus Vaccine Quad .5 mL IM 6+ MO (FLUZONE/FLULAVAL/F LUARIX) 2023-12-17 10:30:00 Completed [facility] Pneumococcal Polysaccharide, PPSV23 (PNEUMOVAX) 2023-12-17 10:30:00 Completed [facility] Influenza Virus Vaccine (3+ yrs) 2023-12-17 10:30:00 Completed [facility] Influenza Virus Vaccine 2023-12-17 10:30:00 Completed [facility] SARS-COV-2 COVID-19 PFIZER VACCINE 2023-12-17 10:30:00 Completed [facility] Influenza Virus Vaccine Quad IM, Preserv and ABX Free 6 MO-64 YRS (FLUCELVAX) 2023-12-17 10:30:00 Completed [facility] TDAP 2023-12-16 14:30:00 Completed [facility] Influenza Virus Vaccine (3+ yrs) 2023-12-16 14:30:00 Completed [facility] Influenza Virus Vaccine 2023-12-16 14:30:00 Completed [facility] TD, NOS 2023-12-16 14:30:00 Completed [facility] Influenza Virus Vaccine Quad .5 mL IM 6+ MO (FLUZONE/FLULAVAL/F LUARIX) 2023-12-16 14:30:00 Completed [facility] Pneumococcal Polysaccharide, PPSV23 (PNEUMOVAX) 2023-12-16 14:30:00 Completed [facility] SARS-COV-2 COVID-19 PFIZER VACCINE 2023-12-16 14:30:00 Completed [facility] Influenza Virus Vaccine Quad IM, Preserv and ABX Free 6 MO-64 YRS (FLUCELVAX) 2023-12-16 14:30:00 Completed [facility] TDAP 2023-12-03 12:00:00 Completed [facility] Influenza Virus Vaccine (3+ yrs) 2023-12-03 12:00:00 Completed [facility] Influenza Virus Vaccine 2023-12-03 12:00:00 Completed [facility] TD, NOS 2023-12-03 12:00:00 Completed [facility] Influenza Virus Vaccine Quad .5 mL IM 6+ MO (FLUZONE/FLULAVAL/F LUARIX) 2023-12-03 12:00:00 Completed [facility] Pneumococcal Polysaccharide, PPSV23 (PNEUMOVAX) 2023-12-03 12:00:00 Completed [facility] SARS-COV-2 COVID-19 PFIZER VACCINE 2023-12-03 12:00:00 Completed [facility] Influenza Virus Vaccine Quad IM, Preserv and ABX Free 6 MO-64 YRS (FLUCELVAX) 2023-12-03 12:00:00 Completed [facility] TDAP 2023-12-01 00:00:00 Completed [facility] Influenza Virus Vaccine (3+ yrs) 2023-12-01 00:00:00 Completed [facility] Influenza Virus Vaccine 2023-12-01 00:00:00 Completed [facility] TD, NOS 2023-12-01 00:00:00 Completed [facility] Influenza Virus Vaccine Quad .5 mL IM 6+ MO (FLUZONE/FLULAVAL/F LUARIX) 2023-12-01 00:00:00 Completed [facility] Pneumococcal Polysaccharide, PPSV23 (PNEUMOVAX) 2023-12-01 00:00:00 Completed [facility] SARS-COV-2 COVID-19 PFIZER VACCINE 2023-12-01 00:00:00 Completed [facility] Influenza Virus Vaccine Quad IM, Preserv and ABX Free 6 MO-64 YRS (FLUCELVAX) 2023-12-01 00:00:00 Completed [facility] TDAP 2023-11-16 13:30:00 Completed [facility] TD, NOS 2023-11-16 13:30:00 Completed [facility] Influenza Virus Vaccine Quad .5 mL IM 6+ MO (FLUZONE/FLULAVAL/F LUARIX) 2023-11-16 13:30:00 Completed [facility] Pneumococcal Polysaccharide, PPSV23 (PNEUMOVAX) 2023-11-16 13:30:00 Completed [facility] Influenza Virus Vaccine (3+ yrs) 2023-11-16 13:30:00 Completed [facility] Influenza Virus Vaccine 2023-11-16 13:30:00 Completed [facility] SARS-COV-2 COVID-19 PFIZER VACCINE 2023-11-16 13:30:00 Completed [facility] Influenza Virus Vaccine Quad IM, Preserv and ABX Free 6 MO-64 YRS (FLUCELVAX) 2023-11-16 13:30:00 Completed [facility] TDAP 2023-11-09 13:40:00 Completed [facility] Influenza Virus Vaccine (3+ yrs) 2023-11-09 13:40:00 Completed [facility] Influenza Virus Vaccine 2023-11-09 13:40:00 Completed [facility] TD, NOS 2023-11-09 13:40:00 Completed [facility] Influenza Virus Vaccine Quad .5 mL IM 6+ MO (FLUZONE/FLULAVAL/F LUARIX) 2023-11-09 13:40:00 Completed [facility] Pneumococcal Polysaccharide, PPSV23 (PNEUMOVAX) 2023-11-09 13:40:00 Completed [facility] SARS-COV-2 COVID-19 PFIZER VACCINE 2023-11-09 13:40:00 Completed [facility] Influenza Virus Vaccine Quad IM, Preserv and ABX Free 6 MO-64 YRS (FLUCELVAX) 2023-11-09 13:40:00 Completed [facility] TDAP 2023-07-08 00:00:00 Completed [facility] Influenza Virus Vaccine (3+ yrs) 2023-07-08 00:00:00 Completed [facility] Influenza Virus Vaccine 2023-07-08 00:00:00 Completed [facility] TD, NOS 2023-07-08 00:00:00 Completed [facility] Influenza Virus Vaccine Quad .5 mL IM 6+ MO (FLUZONE/FLULAVAL/F LUARIX) 2023-07-08 00:00:00 Completed [facility] Pneumococcal Polysaccharide, PPSV23 (PNEUMOVAX) 2023-07-08 00:00:00 Completed [facility] SARS-COV-2 COVID-19 PFIZER VACCINE 2023-07-08 00:00:00 Completed [facility] Influenza Virus Vaccine Quad IM, Preserv and ABX Free 6 MO-64 YRS (FLUCELVAX) 2023-07-08 00:00:00 Completed [facility] TDAP 2023-06-23 12:46:42 Completed [facility] Influenza Virus Vaccine (3+ yrs) 2023-06-23 12:46:42 Completed [facility] Influenza Virus Vaccine 2023-06-23 12:46:42 Completed [facility] TD, NOS 2023-06-23 12:46:42 Completed [facility] Influenza Virus Vaccine Quad .5 mL IM 6+ MO (FLUZONE/FLULAVAL/F LUARIX) 2023-06-23 12:46:42 Completed [facility] Pneumococcal Polysaccharide, PPSV23 (PNEUMOVAX) 2023-06-23 12:46:42 Completed [facility] SARS-COV-2 COVID-19 PFIZER VACCINE 2023-06-23 12:46:42 Completed [facility] Influenza Virus Vaccine Quad IM, Preserv and ABX Free 6 MO-64 YRS (FLUCELVAX) 2023-06-23 12:46:42 Completed [facility] TDAP 2023-06-23 00:00:00 Completed [facility] Influenza Virus Vaccine (3+ yrs) 2023-06-23 00:00:00 Completed [facility] Influenza Virus Vaccine 2023-06-23 00:00:00 Completed [facility] TD, NOS 2023-06-23 00:00:00 Completed [facility] Influenza Virus Vaccine Quad .5 mL IM 6+ MO (FLUZONE/FLULAVAL/F LUARIX) 2023-06-23 00:00:00 Completed [facility] Pneumococcal Polysaccharide, PPSV23 (PNEUMOVAX) 2023-06-23 00:00:00 Completed [facility] SARS-COV-2 COVID-19 PFIZER VACCINE 2023-06-23 00:00:00 Completed [facility] Influenza Virus Vaccine Quad IM, Preserv and ABX Free 6 MO-64 YRS (FLUCELVAX) 2023-06-23 00:00:00 Completed [facility] TDAP 2023-06-23 00:00:00 Completed [facility] Influenza Virus Vaccine (3+ yrs) 2023-06-23 00:00:00 Completed [facility] Influenza Virus Vaccine 2023-06-23 00:00:00 Completed [facility] TD, NOS 2023-06-23 00:00:00 Completed [facility] Influenza Virus Vaccine Quad .5 mL IM 6+ MO (FLUZONE/FLULAVAL/F LUARIX) 2023-06-23 00:00:00 Completed [facility] Pneumococcal Polysaccharide, PPSV23 (PNEUMOVAX) 2023-06-23 00:00:00 Completed [facility] SARS-COV-2 COVID-19 PFIZER VACCINE 2023-06-23 00:00:00 Completed [facility] Influenza Virus Vaccine Quad IM, Preserv and ABX Free 6 MO-64 YRS (FLUCELVAX) 2023-06-23 00:00:00 Completed [facility] TDAP 2023-06-21 00:00:00 Completed [facility] Influenza Virus Vaccine (3+ yrs) 2023-06-21 00:00:00 Completed [facility] Influenza Virus Vaccine 2023-06-21 00:00:00 Completed [facility] TD, NOS 2023-06-21 00:00:00 Completed [facility] Influenza Virus Vaccine Quad .5 mL IM 6+ MO (FLUZONE/FLULAVAL/F LUARIX) 2023-06-21 00:00:00 Completed [facility] Pneumococcal Polysaccharide, PPSV23 (PNEUMOVAX) 2023-06-21 00:00:00 Completed [facility] SARS-COV-2 COVID-19 PFIZER VACCINE 2023-06-21 00:00:00 Completed [facility] Influenza Virus Vaccine Quad IM, Preserv and ABX Free 6 MO-64 YRS (FLUCELVAX) 2023-06-21 00:00:00 Completed [facility] TDAP 2023-06-08 00:00:00 Completed [facility] Influenza Virus Vaccine (3+ yrs) 2023-06-08 00:00:00 Completed [facility] Influenza Virus Vaccine 2023-06-08 00:00:00 Completed [facility] TD, NOS 2023-06-08 00:00:00 Completed [facility] Influenza Virus Vaccine Quad .5 mL IM 6+ MO (FLUZONE/FLULAVAL/F LUARIX) 2023-06-08 00:00:00 Completed [facility] Pneumococcal Polysaccharide, PPSV23 (PNEUMOVAX) 2023-06-08 00:00:00 Completed [facility] SARS-COV-2 COVID-19 PFIZER VACCINE 2023-06-08 00:00:00 Completed [facility] Influenza Virus Vaccine Quad IM, Preserv and ABX Free 6 MO-64 YRS (FLUCELVAX) 2023-06-08 00:00:00 Completed [facility] TDAP 2023-06-07 14:48:39 Completed [facility] Influenza Virus Vaccine (3+ yrs) 2023-06-07 14:48:39 Completed [facility] Influenza Virus Vaccine 2023-06-07 14:48:39 Completed [facility] TD, NOS 2023-06-07 14:48:39 Completed [facility] Influenza Virus Vaccine Quad .5 mL IM 6+ MO (FLUZONE/FLULAVAL/F LUARIX) 2023-06-07 14:48:39 Completed [facility] Pneumococcal Polysaccharide, PPSV23 (PNEUMOVAX) 2023-06-07 14:48:39 Completed [facility] SARS-COV-2 COVID-19 PFIZER VACCINE 2023-06-07 14:48:39 Completed [facility] Influenza Virus Vaccine Quad IM, Preserv and ABX Free 6 MO-64 YRS (FLUCELVAX) 2023-06-07 14:48:39 Completed [facility] TDAP 2023-05-27 00:00:00 Completed [facility] Influenza Virus Vaccine (3+ yrs) 2023-05-27 00:00:00 Completed [facility] Influenza Virus Vaccine 2023-05-27 00:00:00 Completed [facility] TD, NOS 2023-05-27 00:00:00 Completed [facility] Influenza Virus Vaccine Quad .5 mL IM 6+ MO (FLUZONE/FLULAVAL/F LUARIX) 2023-05-27 00:00:00 Completed [facility] Pneumococcal Polysaccharide, PPSV23 (PNEUMOVAX) 2023-05-27 00:00:00 Completed [facility] SARS-COV-2 COVID-19 PFIZER VACCINE 2023-05-27 00:00:00 Completed [facility] Influenza Virus Vaccine Quad IM, Preserv and ABX Free 6 MO-64 YRS (FLUCELVAX) 2023-05-27 00:00:00 Completed [facility] TDAP 2023-05-26 09:07:34 Completed [facility] Influenza Virus Vaccine (3+ yrs) 2023-05-26 09:07:34 Completed [facility] Influenza Virus Vaccine 2023-05-26 09:07:34 Completed [facility] TD, NOS 2023-05-26 09:07:34 Completed [facility] Influenza Virus Vaccine Quad .5 mL IM 6+ MO (FLUZONE/FLULAVAL/F LUARIX) 2023-05-26 09:07:34 Completed [facility] Pneumococcal Polysaccharide, PPSV23 (PNEUMOVAX) 2023-05-26 09:07:34 Completed [facility] SARS-COV-2 COVID-19 PFIZER VACCINE 2023-05-26 09:07:34 Completed [facility] Influenza Virus Vaccine Quad IM, Preserv and ABX Free 6 MO-64 YRS (FLUCELVAX) 2023-05-26 09:07:34 Completed [facility] TDAP 2023-05-25 00:00:00 Completed [facility] Influenza Virus Vaccine (3+ yrs) 2023-05-25 00:00:00 Completed [facility] Influenza Virus Vaccine 2023-05-25 00:00:00 Completed [facility] TD, NOS 2023-05-25 00:00:00 Completed [facility] Influenza Virus Vaccine Quad .5 mL IM 6+ MO (FLUZONE/FLULAVAL/F LUARIX) 2023-05-25 00:00:00 Completed [facility] Pneumococcal Polysaccharide, PPSV23 (PNEUMOVAX) 2023-05-25 00:00:00 Completed [facility] SARS-COV-2 COVID-19 PFIZER VACCINE 2023-05-25 00:00:00 Completed [facility] Influenza Virus Vaccine Quad IM, Preserv and ABX Free 6 MO-64 YRS (FLUCELVAX) 2023-05-25 00:00:00 Completed [facility] TDAP 2023-05-25 00:00:00 Completed [facility] Influenza Virus Vaccine (3+ yrs) 2023-05-25 00:00:00 Completed [facility] Influenza Virus Vaccine 2023-05-25 00:00:00 Completed [facility] TD, NOS 2023-05-25 00:00:00 Completed [facility] Influenza Virus Vaccine Quad .5 mL IM 6+ MO (FLUZONE/FLULAVAL/F LUARIX) 2023-05-25 00:00:00 Completed [facility] Pneumococcal Polysaccharide, PPSV23 (PNEUMOVAX) 2023-05-25 00:00:00 Completed [facility] SARS-COV-2 COVID-19 PFIZER VACCINE 2023-05-25 00:00:00 Completed [facility] Influenza Virus Vaccine Quad IM, Preserv and ABX Free 6 MO-64 YRS (FLUCELVAX) 2023-05-25 00:00:00 Completed [facility] TDAP 2023-05-24 08:30:00 Completed [facility] Influenza Virus Vaccine (3+ yrs) 2023-05-24 08:30:00 Completed [facility] Influenza Virus Vaccine 2023-05-24 08:30:00 Completed [facility] TD, NOS 2023-05-24 08:30:00 Completed [facility] Influenza Virus Vaccine Quad .5 mL IM 6+ MO (FLUZONE/FLULAVAL/F LUARIX) 2023-05-24 08:30:00 Completed [facility] Pneumococcal Polysaccharide, PPSV23 (PNEUMOVAX) 2023-05-24 08:30:00 Completed [facility] SARS-COV-2 COVID-19 PFIZER VACCINE 2023-05-24 08:30:00 Completed [facility] Influenza Virus Vaccine Quad IM, Preserv and ABX Free 6 MO-64 YRS (FLUCELVAX) 2023-05-24 08:30:00 Completed [facility] TDAP 2023-05-24 08:00:00 Completed [facility] Influenza Virus Vaccine (3+ yrs) 2023-05-24 08:00:00 Completed [facility] Influenza Virus Vaccine 2023-05-24 08:00:00 Completed [facility] TD, NOS 2023-05-24 08:00:00 Completed [facility] Influenza Virus Vaccine Quad .5 mL IM 6+ MO (FLUZONE/FLULAVAL/F LUARIX) 2023-05-24 08:00:00 Completed [facility] Pneumococcal Polysaccharide, PPSV23 (PNEUMOVAX) 2023-05-24 08:00:00 Completed [facility] SARS-COV-2 COVID-19 PFIZER VACCINE 2023-05-24 08:00:00 Completed [facility] Influenza Virus Vaccine Quad IM, Preserv and ABX Free 6 MO-64 YRS (FLUCELVAX) 2023-05-24 08:00:00 Completed [facility] TDAP 2023-05-24 00:00:00 Completed [facility] Influenza Virus Vaccine (3+ yrs) 2023-05-24 00:00:00 Completed [facility] Influenza Virus Vaccine 2023-05-24 00:00:00 Completed [facility] TD, NOS 2023-05-24 00:00:00 Completed [facility] Influenza Virus Vaccine Quad .5 mL IM 6+ MO (FLUZONE/FLULAVAL/F LUARIX) 2023-05-24 00:00:00 Completed [facility] Pneumococcal Polysaccharide, PPSV23 (PNEUMOVAX) 2023-05-24 00:00:00 Completed [facility] SARS-COV-2 COVID-19 PFIZER VACCINE 2023-05-24 00:00:00 Completed [facility] Influenza Virus Vaccine Quad IM, Preserv and ABX Free 6 MO-64 YRS (FLUCELVAX) 2023-05-24 00:00:00 Completed [facility] TDAP 2023-05-10 13:20:00 Completed [facility] Influenza Virus Vaccine (3+ yrs) 2023-05-10 13:20:00 Completed [facility] Influenza Virus Vaccine 2023-05-10 13:20:00 Completed [facility] TD, NOS 2023-05-10 13:20:00 Completed [facility] Influenza Virus Vaccine Quad .5 mL IM 6+ MO (FLUZONE/FLULAVAL/F LUARIX) 2023-05-10 13:20:00 Completed [facility] Pneumococcal Polysaccharide, PPSV23 (PNEUMOVAX) 2023-05-10 13:20:00 Completed [facility] SARS-COV-2 COVID-19 PFIZER VACCINE 2023-05-10 13:20:00 Completed [facility] Influenza Virus Vaccine Quad IM, Preserv and ABX Free 6 MO-64 YRS (FLUCELVAX) 2023-05-10 13:20:00 Completed [facility] TDAP 2022-08-13 00:00:00 Completed [facility] Influenza Virus Vaccine (3+ yrs) 2022-08-13 00:00:00 Completed [facility] Influenza Virus Vaccine 2022-08-13 00:00:00 Completed [facility] TD, NOS 2022-08-13 00:00:00 Completed [facility] Influenza Virus Vaccine Quad .5 mL IM 6+ MO (FLUZONE/FLULAVAL/F LUARIX) 2022-08-13 00:00:00 Completed [facility] Pneumococcal Polysaccharide, PPSV23 (PNEUMOVAX) 2022-08-13 00:00:00 Completed [facility] SARS-COV-2 COVID-19 PFIZER VACCINE 2022-08-13 00:00:00 Completed [facility] Influenza Virus Vaccine Quad IM, Preserv and ABX Free 6 MO-64 YRS (FLUCELVAX) 2022-08-13 00:00:00 Completed [facility] Influenza Virus Vaccine Quad IM, Preserv and ABX Free 6 MO-64 YRS 2022-04-15 00:00:00 Completed [facility] Influenza Virus Vaccine Quad IM, Preserv and ABX Free 6 MO-64 YRS 2022-04-15 00:00:00 Completed [facility] Influenza Virus Vaccine Quad IM, Preserv and ABX Free 6 MO-64 YRS 2022-04-15 00:00:00 Completed [facility] Influenza Virus Vaccine Quad IM, Preserv and ABX Free 6 MO-64 YRS 2022-04-15 00:00:00 Completed [facility] Influenza Virus Vaccine Quad IM, Preserv and ABX Free 6 MO-64 YRS 2022-04-15 00:00:00 Completed [facility] Influenza Virus Vaccine Quad IM, Preserv and ABX Free 6 MO-64 YRS 2022-04-15 00:00:00 Completed [facility] Influenza Virus Vaccine Quad IM, Preserv and ABX Free 6 MO-64 YRS 2022-04-15 00:00:00 Completed [facility] Influenza Virus Vaccine Quad IM, Preserv and ABX Free 6 MO-64 YRS 2022-04-15 00:00:00 Completed [facility] Influenza Virus Vaccine Quad IM, Preserv and ABX Free 6 MO-64 YRS 2022-04-15 00:00:00 Completed [facility] Influenza Virus Vaccine Quad IM, Preserv and ABX Free 6 MO-64 YRS 2022-04-15 00:00:00 Completed [facility] Influenza Virus Vaccine Quad IM, Preserv and ABX Free 6 MO-64 YRS 2022-04-15 00:00:00 Completed [facility] Influenza Virus Vaccine Quad IM, Preserv and ABX Free 6 MO-64 YRS 2022-04-15 00:00:00 Completed [facility] Influenza Virus Vaccine Quad IM, Preserv and ABX Free 6 MO-64 YRS 2022-04-15 00:00:00 Completed [facility] Influenza Virus Vaccine Quad IM, Preserv and ABX Free 6 MO-64 YRS 2022-04-15 00:00:00 Completed [facility] Influenza Virus Vaccine Quad IM, Preserv and ABX Free 6 MO-64 YRS 2022-04-15 00:00:00 Completed [facility] Influenza Virus Vaccine Quad IM, Preserv and ABX Free 6 MO-64 YRS 2022-04-15 00:00:00 Completed [facility] Influenza Virus Vaccine Quad IM, Preserv and ABX Free 6 MO-64 YRS 2022-04-15 00:00:00 Completed [facility] Influenza Virus Vaccine Quad IM, Preserv and ABX Free 6 MO-64 YRS 2022-04-15 00:00:00 Completed [facility] Influenza Virus Vaccine Quad IM, Preserv and ABX Free 6 MO-64 YRS 2022-04-15 00:00:00 Completed [facility] Influenza Virus Vaccine Quad IM, Preserv and ABX Free 6 MO-64 YRS 2022-04-15 00:00:00 Completed [facility] Influenza Virus Vaccine Quad IM, Preserv and ABX Free 6 MO-64 YRS 2022-04-15 00:00:00 Completed [facility] Influenza Virus Vaccine Quad IM, Preserv and ABX Free 6 MO-64 YRS 2022-04-15 00:00:00 Completed [facility] Influenza Virus Vaccine Quad IM, Preserv and ABX Free 6 MO-64 YRS 2022-04-15 00:00:00 Completed [facility] Influenza Virus Vaccine Quad IM, Preserv and ABX Free 6 MO-64 YRS 2022-04-15 00:00:00 Completed [facility] Influenza Virus Vaccine Quad IM, Preserv and ABX Free 6 MO-64 YRS 2022-04-15 00:00:00 Completed [facility] Influenza Virus Vaccine Quad IM, Preserv and ABX Free 6 MO-64 YRS 2022-04-15 00:00:00 Completed [facility] Influenza Virus Vaccine Quad IM, Preserv and ABX Free 6 MO-64 YRS 2022-04-15 00:00:00 Completed [facility] Influenza Virus Vaccine Quad IM, Preserv and ABX Free 6 MO-64 YRS 2022-04-15 00:00:00 Completed [facility] Influenza Virus Vaccine Quad IM, Preserv and ABX Free 6 MO-64 YRS 2022-04-15 00:00:00 Completed [facility] Influenza Virus Vaccine Quad IM, Preserv and ABX Free 6 MO-64 YRS 2022-04-15 00:00:00 Completed [facility] Influenza Virus Vaccine Quad IM, Preserv and ABX Free 6 MO-64 YRS 2022-04-15 00:00:00 Completed [facility] Influenza Virus Vaccine Quad IM, Preserv and ABX Free 6 MO-64 YRS 2022-04-15 00:00:00 Completed [facility] Influenza Virus Vaccine Quad IM, Preserv and ABX Free 6 MO-64 YRS 2022-04-15 00:00:00 Completed [facility] Influenza Virus Vaccine Quad IM, Preserv and ABX Free 6 MO-64 YRS 2022-04-15 00:00:00 Completed [facility] Influenza Virus Vaccine Quad IM, Preserv and ABX Free 6 MO-64 YRS 2022-04-15 00:00:00 Completed [facility] Influenza Virus Vaccine Quad IM, Preserv and ABX Free 6 MO-64 YRS 2022-04-15 00:00:00 Completed [facility] Influenza Virus Vaccine Quad IM, Preserv and ABX Free 6 MO-64 YRS 2022-04-15 00:00:00 Completed [facility] Influenza Virus Vaccine Quad IM, Preserv and ABX Free 6 MO-64 YRS 2022-04-15 00:00:00 Completed [facility] Influenza Virus Vaccine Quad IM, Preserv and ABX Free 6 MO-64 YRS 2022-04-15 00:00:00 Completed [facility] Influenza Virus Vaccine Quad IM, Preserv and ABX Free 6 MO-64 YRS 2022-04-15 00:00:00 Completed [facility] Influenza Virus Vaccine Quad IM, Preserv and ABX Free 6 MO-64 YRS 2022-04-15 00:00:00 Completed [facility] Influenza Virus Vaccine Quad IM, Preserv and ABX Free 6 MO-64 YRS 2022-04-15 00:00:00 Completed [facility] Influenza Virus Vaccine Quad IM, Preserv and ABX Free 6 MO-64 YRS 2022-04-15 00:00:00 Completed [facility] Influenza Virus Vaccine Quad IM, Preserv and ABX Free 6 MO-64 YRS 2022-04-15 00:00:00 Completed [facility] Influenza Virus Vaccine Quad IM, Preserv and ABX Free 6 MO-64 YRS 2022-04-15 00:00:00 Completed [facility] Influenza Virus Vaccine Quad IM, Preserv and ABX Free 6 MO-64 YRS 2022-04-15 00:00:00 Completed [facility] Influenza Virus Vaccine Quad IM, Preserv and ABX Free 6 MO-64 YRS 2022-04-15 00:00:00 Completed [facility] Influenza Virus Vaccine Quad IM, Preserv and ABX Free 6 MO-64 YRS 2022-04-15 00:00:00 Completed [facility] Influenza Virus Vaccine Quad IM, Preserv and ABX Free 6 MO-64 YRS 2022-04-15 00:00:00 Completed [facility] Influenza Virus Vaccine Quad IM, Preserv and ABX Free 6 MO-64 YRS 2022-04-15 00:00:00 Completed [facility] Influenza Virus Vaccine Quad IM, Preserv and ABX Free 6 MO-64 YRS 2022-04-15 00:00:00 Completed [facility] Influenza Virus Vaccine Quad IM, Preserv and ABX Free 6 MO-64 YRS 2022-04-15 00:00:00 Completed [facility] Influenza Virus Vaccine Quad IM, Preserv and ABX Free 6 MO-64 YRS 2022-04-15 00:00:00 Completed [facility] Influenza Virus Vaccine Quad IM, Preserv and ABX Free 6 MO-64 YRS (FLUCELVAX) 2022-04-15 00:00:00 Completed [facility] Influenza Virus Vaccine Quad IM, Preserv and ABX Free 6 MO-64 YRS (FLUCELVAX) 2022-04-15 00:00:00 Completed [facility] Influenza Virus Vaccine Quad IM, Preserv and ABX Free 6 MO-64 YRS (FLUCELVAX) 2022-04-15 00:00:00 Completed [facility] Influenza Virus Vaccine Quad IM, Preserv and ABX Free 6 MO-64 YRS (FLUCELVAX) 2022-04-15 00:00:00 Completed [facility] Influenza Virus Vaccine Quad IM, Preserv and ABX Free 6 MO-64 YRS (FLUCELVAX) 2022-04-15 00:00:00 Completed [facility] Influenza Virus Vaccine Quad IM, Preserv and ABX Free 6 MO-64 YRS (FLUCELVAX) 2022-04-15 00:00:00 Completed [facility] Influenza Virus Vaccine Quad IM, Preserv and ABX Free 6 MO-64 YRS (FLUCELVAX) 2022-04-15 00:00:00 Completed [facility] Influenza Virus Vaccine Quad IM, Preserv and ABX Free 6 MO-64 YRS (FLUCELVAX) 2022-04-15 00:00:00 Completed [facility] TDAP 2022-01-13 00:00:00 Completed [facility] Influenza Virus Vaccine (3+ yrs) 2022-01-13 00:00:00 Completed [facility] Influenza Virus Vaccine 2022-01-13 00:00:00 Completed [facility] TD, NOS 2022-01-13 00:00:00 Completed [facility] Influenza Virus Vaccine Quad .5 mL IM 6+ MO (FLUZONE/FLULAVAL/F LUARIX) 2022-01-13 00:00:00 Completed [facility] Pneumococcal Polysaccharide, PPSV23 (PNEUMOVAX) 2022-01-13 00:00:00 Completed [facility] SARS-COV-2 COVID-19 PFIZER VACCINE 2022-01-13 00:00:00 Completed [facility] TDAP 2021-12-29 00:00:00 Completed [facility] Influenza Virus Vaccine (3+ yrs) 2021-12-29 00:00:00 Completed [facility] Influenza Virus Vaccine 2021-12-29 00:00:00 Completed [facility] TD, NOS 2021-12-29 00:00:00 Completed [facility] Influenza Virus Vaccine Quad .5 mL IM 6+ MO (FLUZONE/FLULAVAL/F LUARIX) 2021-12-29 00:00:00 Completed [facility] Pneumococcal Polysaccharide, PPSV23 (PNEUMOVAX) 2021-12-29 00:00:00 Completed [facility] SARS-COV-2 COVID-19 PFIZER VACCINE 2021-12-29 00:00:00 Completed [facility] TDAP 2021-07-22 00:00:00 Completed [facility] Influenza Virus Vaccine (3+ yrs) 2021-07-22 00:00:00 Completed [facility] Influenza Virus Vaccine 2021-07-22 00:00:00 Completed [facility] TD, NOS 2021-07-22 00:00:00 Completed [facility] Influenza Virus Vaccine Quad .5 mL IM 6+ MO (FLUZONE/FLULAVAL/F LUARIX) 2021-07-22 00:00:00 Completed [facility] Pneumococcal Polysaccharide, PPSV23 (PNEUMOVAX) 2021-07-22 00:00:00 Completed [facility] SARS-COV-2 COVID-19 PFIZER VACCINE 2021-07-22 00:00:00 Completed [facility] TDAP 2021-03-15 00:00:00 Completed [facility] Influenza Virus Vaccine (3+ yrs) 2021-03-15 00:00:00 Completed [facility] Influenza Virus Vaccine 2021-03-15 00:00:00 Completed [facility] TD, NOS 2021-03-15 00:00:00 Completed [facility] Influenza Virus Vaccine Quad .5 mL IM 6+ MO (FLUZONE/FLULAVAL/F LUARIX) 2021-03-15 00:00:00 Completed [facility] Pneumococcal Polysaccharide, PPSV23 (PNEUMOVAX) 2021-03-15 00:00:00 Completed [facility] SARS-COV-2 COVID-19 PFIZER VACCINE 2021-03-15 00:00:00 Completed [facility] TDAP 2020-10-30 00:00:00 Completed [facility] Influenza Virus Vaccine (3+ yrs) 2020-10-30 00:00:00 Completed [facility] Influenza Virus Vaccine 2020-10-30 00:00:00 Completed [facility] TD, NOS 2020-10-30 00:00:00 Completed [facility] Influenza Virus Vaccine Quad .5 mL IM 6+ MO (FLUZONE/FLULAVAL/F LUARIX) 2020-10-30 00:00:00 Completed [facility] Pneumococcal Polysaccharide, PPSV23 (PNEUMOVAX) 2020-10-30 00:00:00 Completed [facility] SARS-COV-2 COVID-19 PFIZER VACCINE 2020-10-30 00:00:00 Completed [facility] TDAP 2020-10-30 00:00:00 Completed [facility] Influenza Virus Vaccine (3+ yrs) 2020-10-30 00:00:00 Completed [facility] Influenza Virus Vaccine 2020-10-30 00:00:00 Completed [facility] TD, NOS 2020-10-30 00:00:00 Completed [facility] Influenza Virus Vaccine Quad .5 mL IM 6+ MO (FLUZONE/FLULAVAL/F LUARIX) 2020-10-30 00:00:00 Completed [facility] Pneumococcal Polysaccharide, PPSV23 (PNEUMOVAX) 2020-10-30 00:00:00 Completed [facility] SARS-COV-2 COVID-19 PFIZER VACCINE 2020-10-30 00:00:00 Completed [facility] SARS-COV-2 COVID-19 PFIZER VACCINE 2020-10-26 00:00:00 Completed [facility] SARS-COV-2 COVID-19 PFIZER VACCINE 2020-10-26 00:00:00 Completed [facility] SARS-COV-2 COVID-19 PFIZER VACCINE 2020-10-26 00:00:00 Completed [facility] SARS-COV-2 COVID-19 PFIZER VACCINE 2020-10-26 00:00:00 Completed [facility] SARS-COV-2 COVID-19 PFIZER VACCINE 2020-10-26 00:00:00 Completed [facility] SARS-COV-2 COVID-19 PFIZER VACCINE 2020-10-26 00:00:00 Completed [facility] SARS-COV-2 COVID-19 PFIZER VACCINE 2020-10-26 00:00:00 Completed [facility] SARS-COV-2 COVID-19 PFIZER VACCINE 2020-10-26 00:00:00 Completed [facility] SARS-COV-2 COVID-19 PFIZER VACCINE 2020-10-26 00:00:00 Completed [facility] SARS-COV-2 COVID-19 PFIZER VACCINE 2020-10-26 00:00:00 Completed [facility] SARS-COV-2 COVID-19 PFIZER VACCINE 2020-10-26 00:00:00 Completed [facility] SARS-COV-2 COVID-19 PFIZER VACCINE 2020-10-26 00:00:00 Completed [facility] SARS-COV-2 COVID-19 PFIZER VACCINE 2020-10-26 00:00:00 Completed [facility] SARS-COV-2 COVID-19 PFIZER VACCINE 2020-10-26 00:00:00 Completed [facility] SARS-COV-2 COVID-19 PFIZER VACCINE 2020-10-26 00:00:00 Completed [facility] SARS-COV-2 COVID-19 PFIZER VACCINE 2020-10-26 00:00:00 Completed [facility] SARS-COV-2 COVID-19 PFIZER VACCINE 2020-10-26 00:00:00 Completed [facility] SARS-COV-2 COVID-19 PFIZER VACCINE 2020-10-26 00:00:00 Completed [facility] SARS-COV-2 COVID-19 PFIZER VACCINE 2020-10-26 00:00:00 Completed [facility] SARS-COV-2 COVID-19 PFIZER VACCINE 2020-10-26 00:00:00 Completed [facility] SARS-COV-2 COVID-19 PFIZER VACCINE 2020-10-26 00:00:00 Completed [facility] SARS-COV-2 COVID-19 PFIZER VACCINE 2020-10-26 00:00:00 Completed [facility] SARS-COV-2 COVID-19 PFIZER VACCINE 2020-10-26 00:00:00 Completed [facility] SARS-COV-2 COVID-19 PFIZER VACCINE 2020-10-26 00:00:00 Completed [facility] SARS-COV-2 COVID-19 PFIZER VACCINE 2020-10-26 00:00:00 Completed [facility] SARS-COV-2 COVID-19 PFIZER VACCINE 2020-10-26 00:00:00 Completed [facility] SARS-COV-2 COVID-19 PFIZER VACCINE 2020-10-26 00:00:00 Completed [facility] SARS-COV-2 COVID-19 PFIZER VACCINE 2020-10-26 00:00:00 Completed [facility] SARS-COV-2 COVID-19 PFIZER VACCINE 2020-10-26 00:00:00 Completed [facility] SARS-COV-2 COVID-19 PFIZER VACCINE 2020-10-26 00:00:00 Completed [facility] SARS-COV-2 COVID-19 PFIZER VACCINE 2020-10-26 00:00:00 Completed [facility] SARS-COV-2 COVID-19 PFIZER VACCINE 2020-10-26 00:00:00 Completed [facility] SARS-COV-2 COVID-19 PFIZER VACCINE 2020-10-26 00:00:00 Completed [facility] SARS-COV-2 COVID-19 PFIZER VACCINE 2020-10-26 00:00:00 Completed [facility] SARS-COV-2 COVID-19 PFIZER VACCINE 2020-10-26 00:00:00 Completed [facility] SARS-COV-2 COVID-19 PFIZER VACCINE 2020-10-26 00:00:00 Completed [facility] SARS-COV-2 COVID-19 PFIZER VACCINE 2020-10-26 00:00:00 Completed [facility] SARS-COV-2 COVID-19 PFIZER VACCINE 2020-10-26 00:00:00 Completed [facility] SARS-COV-2 COVID-19 PFIZER VACCINE 2020-10-26 00:00:00 Completed [facility] SARS-COV-2 COVID-19 PFIZER VACCINE 2020-10-26 00:00:00 Completed [facility] SARS-COV-2 COVID-19 PFIZER VACCINE 2020-10-26 00:00:00 Completed [facility] SARS-COV-2 COVID-19 PFIZER VACCINE 2020-10-26 00:00:00 Completed [facility] SARS-COV-2 COVID-19 PFIZER VACCINE 2020-10-26 00:00:00 Completed [facility] SARS-COV-2 COVID-19 PFIZER VACCINE 2020-10-26 00:00:00 Completed [facility] SARS-COV-2 COVID-19 PFIZER VACCINE 2020-10-26 00:00:00 Completed [facility] SARS-COV-2 COVID-19 PFIZER VACCINE 2020-10-26 00:00:00 Completed [facility] SARS-COV-2 COVID-19 PFIZER VACCINE 2020-10-26 00:00:00 Completed [facility] SARS-COV-2 COVID-19 PFIZER VACCINE 2020-10-26 00:00:00 Completed [facility] SARS-COV-2 COVID-19 PFIZER VACCINE 2020-10-26 00:00:00 Completed [facility] SARS-COV-2 COVID-19 PFIZER VACCINE 2020-10-26 00:00:00 Completed [facility] SARS-COV-2 COVID-19 PFIZER VACCINE 2020-10-26 00:00:00 Completed [facility] SARS-COV-2 COVID-19 PFIZER VACCINE 2020-10-26 00:00:00 [facility] [facility] SARS-COV-2 COVID-19 PFIZER VACCINE 2020-10-26 00:00:00 Completed [facility] SARS-COV-2 COVID-19 PFIZER VACCINE 2020-10-26 00:00:00 Completed [facility] SARS-COV-2 COVID-19 PFIZER VACCINE 2020-10-26 00:00:00 Completed [facility] SARS-COV-2 COVID-19 PFIZER VACCINE 2020-10-26 00:00:00 Completed [facility] SARS-COV-2 COVID-19 PFIZER VACCINE 2020-10-26 00:00:00 Completed [facility] SARS-COV-2 COVID-19 PFIZER VACCINE 2020-10-26 00:00:00 Completed [facility] SARS-COV-2 COVID-19 PFIZER VACCINE 2020-10-26 00:00:00 Completed [facility] SARS-COV-2 COVID-19 PFIZER VACCINE 2020-10-26 00:00:00 Completed [facility] SARS-COV-2 COVID-19 PFIZER VACCINE 2020-10-26 00:00:00 Completed [facility] SARS-COV-2 COVID-19 PFIZER VACCINE 2020-10-26 00:00:00 Completed [facility] SARS-COV-2 COVID-19 PFIZER VACCINE 2020-10-26 00:00:00 Completed [facility] SARS-COV-2 COVID-19 PFIZER VACCINE 2020-10-05 00:00:00 Completed [facility] SARS-COV-2 COVID-19 PFIZER VACCINE 2020-10-05 00:00:00 Completed [facility] SARS-COV-2 COVID-19 PFIZER VACCINE 2020-10-05 00:00:00 Completed [facility] SARS-COV-2 COVID-19 PFIZER VACCINE 2020-10-05 00:00:00 Completed [facility] SARS-COV-2 COVID-19 PFIZER VACCINE 2020-10-05 00:00:00 Completed [facility] SARS-COV-2 COVID-19 PFIZER VACCINE 2020-10-05 00:00:00 Completed [facility] SARS-COV-2 COVID-19 PFIZER VACCINE 2020-10-05 00:00:00 Completed [facility] SARS-COV-2 COVID-19 PFIZER VACCINE 2020-10-05 00:00:00 Completed [facility] SARS-COV-2 COVID-19 PFIZER VACCINE 2020-10-05 00:00:00 Completed [facility] SARS-COV-2 COVID-19 PFIZER VACCINE 2020-10-05 00:00:00 Completed [facility] SARS-COV-2 COVID-19 PFIZER VACCINE 2020-10-05 00:00:00 Completed [facility] SARS-COV-2 COVID-19 PFIZER VACCINE 2020-10-05 00:00:00 Completed [facility] SARS-COV-2 COVID-19 PFIZER VACCINE 2020-10-05 00:00:00 Completed [facility] SARS-COV-2 COVID-19 PFIZER VACCINE 2020-10-05 00:00:00 Completed [facility] SARS-COV-2 COVID-19 PFIZER VACCINE 2020-10-05 00:00:00 Completed [facility] SARS-COV-2 COVID-19 PFIZER VACCINE 2020-10-05 00:00:00 Completed [facility] SARS-COV-2 COVID-19 PFIZER VACCINE 2020-10-05 00:00:00 Completed [facility] SARS-COV-2 COVID-19 PFIZER VACCINE 2020-10-05 00:00:00 Completed [facility] SARS-COV-2 COVID-19 PFIZER VACCINE 2020-10-05 00:00:00 Completed [facility] SARS-COV-2 COVID-19 PFIZER VACCINE 2020-10-05 00:00:00 Completed [facility] SARS-COV-2 COVID-19 PFIZER VACCINE 2020-10-05 00:00:00 Completed [facility] SARS-COV-2 COVID-19 PFIZER VACCINE 2020-10-05 00:00:00 Completed [facility] SARS-COV-2 COVID-19 PFIZER VACCINE 2020-10-05 00:00:00 Completed [facility] SARS-COV-2 COVID-19 PFIZER VACCINE 2020-10-05 00:00:00 Completed [facility] SARS-COV-2 COVID-19 PFIZER VACCINE 2020-10-05 00:00:00 Completed [facility] SARS-COV-2 COVID-19 PFIZER VACCINE 2020-10-05 00:00:00 Completed [facility] SARS-COV-2 COVID-19 PFIZER VACCINE 2020-10-05 00:00:00 Completed [facility] SARS-COV-2 COVID-19 PFIZER VACCINE 2020-10-05 00:00:00 Completed [facility] SARS-COV-2 COVID-19 PFIZER VACCINE 2020-10-05 00:00:00 Completed [facility] SARS-COV-2 COVID-19 PFIZER VACCINE 2020-10-05 00:00:00 Completed [facility] SARS-COV-2 COVID-19 PFIZER VACCINE 2020-10-05 00:00:00 Completed [facility] SARS-COV-2 COVID-19 PFIZER VACCINE 2020-10-05 00:00:00 Completed [facility] SARS-COV-2 COVID-19 PFIZER VACCINE 2020-10-05 00:00:00 Completed [facility] SARS-COV-2 COVID-19 PFIZER VACCINE 2020-10-05 00:00:00 Completed [facility] SARS-COV-2 COVID-19 PFIZER VACCINE 2020-10-05 00:00:00 Completed [facility] SARS-COV-2 COVID-19 PFIZER VACCINE 2020-10-05 00:00:00 Completed [facility] SARS-COV-2 COVID-19 PFIZER VACCINE 2020-10-05 00:00:00 Completed [facility] SARS-COV-2 COVID-19 PFIZER VACCINE 2020-10-05 00:00:00 Completed [facility] SARS-COV-2 COVID-19 PFIZER VACCINE 2020-10-05 00:00:00 Completed [facility] SARS-COV-2 COVID-19 PFIZER VACCINE 2020-10-05 00:00:00 Completed [facility] SARS-COV-2 COVID-19 PFIZER VACCINE 2020-10-05 00:00:00 Completed [facility] SARS-COV-2 COVID-19 PFIZER VACCINE 2020-10-05 00:00:00 Completed [facility] SARS-COV-2 COVID-19 PFIZER VACCINE 2020-10-05 00:00:00 Completed [facility] SARS-COV-2 COVID-19 PFIZER VACCINE 2020-10-05 00:00:00 Completed [facility] SARS-COV-2 COVID-19 PFIZER VACCINE 2020-10-05 00:00:00 Completed [facility] SARS-COV-2 COVID-19 PFIZER VACCINE 2020-10-05 00:00:00 Completed [facility] SARS-COV-2 COVID-19 PFIZER VACCINE 2020-10-05 00:00:00 Completed [facility] SARS-COV-2 COVID-19 PFIZER VACCINE 2020-10-05 00:00:00 Completed [facility] SARS-COV-2 COVID-19 PFIZER VACCINE 2020-10-05 00:00:00 Completed [facility] SARS-COV-2 COVID-19 PFIZER VACCINE 2020-10-05 00:00:00 Completed [facility] SARS-COV-2 COVID-19 PFIZER VACCINE 2020-10-05 00:00:00 Completed [facility] SARS-COV-2 COVID-19 PFIZER VACCINE 2020-10-05 00:00:00 Completed [facility] SARS-COV-2 COVID-19 PFIZER VACCINE 2020-10-05 00:00:00 Completed [facility] SARS-COV-2 COVID-19 PFIZER VACCINE 2020-10-05 00:00:00 Completed [facility] SARS-COV-2 COVID-19 PFIZER VACCINE 2020-10-05 00:00:00 Completed [facility] SARS-COV-2 COVID-19 PFIZER VACCINE 2020-10-05 00:00:00 Completed [facility] SARS-COV-2 COVID-19 PFIZER VACCINE 2020-10-05 00:00:00 Completed [facility] SARS-COV-2 COVID-19 PFIZER VACCINE 2020-10-05 00:00:00 Completed [facility] SARS-COV-2 COVID-19 PFIZER VACCINE 2020-10-05 00:00:00 Completed [facility] SARS-COV-2 COVID-19 PFIZER VACCINE 2020-10-05 00:00:00 Completed [facility] SARS-COV-2 COVID-19 PFIZER VACCINE 2020-10-05 00:00:00 Completed [facility] SARS-COV-2 COVID-19 PFIZER VACCINE 2020-10-05 00:00:00 Completed [facility] SARS-COV-2 COVID-19 PFIZER VACCINE 2020-10-05 00:00:00 Completed [facility] TDAP 2020-06-20 00:00:00 Completed [facility] Influenza Virus Vaccine (3+ yrs) 2020-06-20 00:00:00 Completed [facility] Influenza Virus Vaccine 2020-06-20 00:00:00 Completed [facility] TD, NOS 2020-06-20 00:00:00 Completed [facility] Influenza Virus Vaccine Quad .5 mL IM 6+ MO (FLUZONE/FLULAVAL/F LUARIX) 2020-06-20 00:00:00 Completed [facility] Pneumococcal Polysaccharide, PPSV23 (PNEUMOVAX) 2020-06-20 00:00:00 Completed [facility] Influenza Virus Vaccine Quad .5 mL IM 6+ MO 2020-05-30 00:00:00 Completed [facility] Pneumococcal Polysaccharide, PPSV23 (PNEUMOVAX) 2020-05-30 00:00:00 Completed [facility] Influenza Virus Vaccine Quad .5 mL IM 6+ MO 2020-05-30 00:00:00 Completed [facility] Pneumococcal Polysaccharide, PPSV23 (PNEUMOVAX) 2020-05-30 00:00:00 Completed [facility] Influenza Virus Vaccine Quad .5 mL IM 6+ MO 2020-05-30 00:00:00 Completed [facility] Pneumococcal Polysaccharide, PPSV23 (PNEUMOVAX) 2020-05-30 00:00:00 Completed [facility] Influenza Virus Vaccine Quad .5 mL IM 6+ MO 2020-05-30 00:00:00 Completed [facility] Pneumococcal Polysaccharide, PPSV23 (PNEUMOVAX) 2020-05-30 00:00:00 Completed [facility] Influenza Virus Vaccine Quad .5 mL IM 6+ MO 2020-05-30 00:00:00 Completed [facility] Pneumococcal Polysaccharide, PPSV23 (PNEUMOVAX) 2020-05-30 00:00:00 Completed [facility] Influenza Virus Vaccine Quad .5 mL IM 6+ MO 2020-05-30 00:00:00 Completed [facility] Pneumococcal Polysaccharide, PPSV23 (PNEUMOVAX) 2020-05-30 00:00:00 Completed [facility] Influenza Virus Vaccine Quad .5 mL IM 6+ MO 2020-05-30 00:00:00 Completed [facility] Pneumococcal Polysaccharide, PPSV23 (PNEUMOVAX) 2020-05-30 00:00:00 Completed [facility] Influenza Virus Vaccine Quad .5 mL IM 6+ MO 2020-05-30 00:00:00 Completed [facility] Pneumococcal Polysaccharide, PPSV23 (PNEUMOVAX) 2020-05-30 00:00:00 Completed [facility] Influenza Virus Vaccine Quad .5 mL IM 6+ MO 2020-05-30 00:00:00 Completed [facility] Pneumococcal Polysaccharide, PPSV23 (PNEUMOVAX) 2020-05-30 00:00:00 Completed [facility] Influenza Virus Vaccine Quad .5 mL IM 6+ MO 2020-05-30 00:00:00 Completed [facility] Pneumococcal Polysaccharide, PPSV23 (PNEUMOVAX) 2020-05-30 00:00:00 Completed [facility] Influenza Virus Vaccine Quad .5 mL IM 6+ MO 2020-05-30 00:00:00 Completed [facility] Pneumococcal Polysaccharide, PPSV23 (PNEUMOVAX) 2020-05-30 00:00:00 Completed [facility] Influenza Virus Vaccine Quad .5 mL IM 6+ MO 2020-05-30 00:00:00 Completed [facility] Pneumococcal Polysaccharide, PPSV23 (PNEUMOVAX) 2020-05-30 00:00:00 Completed [facility] Influenza Virus Vaccine Quad .5 mL IM 6+ MO 2020-05-30 00:00:00 Completed [facility] Pneumococcal Polysaccharide, PPSV23 (PNEUMOVAX) 2020-05-30 00:00:00 Completed [facility] Influenza Virus Vaccine Quad .5 mL IM 6+ MO 2020-05-30 00:00:00 Completed [facility] Pneumococcal Polysaccharide, PPSV23 (PNEUMOVAX) 2020-05-30 00:00:00 Completed [facility] Influenza Virus Vaccine Quad .5 mL IM 6+ MO 2020-05-30 00:00:00 Completed [facility] Pneumococcal Polysaccharide, PPSV23 (PNEUMOVAX) 2020-05-30 00:00:00 Completed [facility] Influenza Virus Vaccine Quad .5 mL IM 6+ MO 2020-05-30 00:00:00 Completed [facility] Pneumococcal Polysaccharide, PPSV23 (PNEUMOVAX) 2020-05-30 00:00:00 Completed [facility] Influenza Virus Vaccine Quad .5 mL IM 6+ MO 2020-05-30 00:00:00 Completed [facility] Pneumococcal Polysaccharide, PPSV23 (PNEUMOVAX) 2020-05-30 00:00:00 Completed [facility] Influenza Virus Vaccine Quad .5 mL IM 6+ MO 2020-05-30 00:00:00 Completed [facility] Pneumococcal Polysaccharide, PPSV23 (PNEUMOVAX) 2020-05-30 00:00:00 Completed [facility] Influenza Virus Vaccine Quad .5 mL IM 6+ MO 2020-05-30 00:00:00 Completed [facility] Pneumococcal Polysaccharide, PPSV23 (PNEUMOVAX) 2020-05-30 00:00:00 Completed [facility] Influenza Virus Vaccine Quad .5 mL IM 6+ MO 2020-05-30 00:00:00 Completed [facility] Pneumococcal Polysaccharide, PPSV23 (PNEUMOVAX) 2020-05-30 00:00:00 Completed [facility] Influenza Virus Vaccine Quad .5 mL IM 6+ MO 2020-05-30 00:00:00 Completed [facility] Pneumococcal Polysaccharide, PPSV23 (PNEUMOVAX) 2020-05-30 00:00:00 Completed [facility] Influenza Virus Vaccine Quad .5 mL IM 6+ MO 2020-05-30 00:00:00 Completed [facility] Pneumococcal Polysaccharide, PPSV23 (PNEUMOVAX) 2020-05-30 00:00:00 Completed [facility] Influenza Virus Vaccine Quad .5 mL IM 6+ MO 2020-05-30 00:00:00 Completed [facility] Pneumococcal Polysaccharide, PPSV23 (PNEUMOVAX) 2020-05-30 00:00:00 Completed [facility] Influenza Virus Vaccine Quad .5 mL IM 6+ MO 2020-05-30 00:00:00 Completed [facility] Pneumococcal Polysaccharide, PPSV23 (PNEUMOVAX) 2020-05-30 00:00:00 Completed [facility] Influenza Virus Vaccine Quad .5 mL IM 6+ MO 2020-05-30 00:00:00 Completed [facility] Pneumococcal Polysaccharide, PPSV23 (PNEUMOVAX) 2020-05-30 00:00:00 Completed [facility] Influenza Virus Vaccine Quad .5 mL IM 6+ MO 2020-05-30 00:00:00 Completed [facility] Pneumococcal Polysaccharide, PPSV23 (PNEUMOVAX) 2020-05-30 00:00:00 Completed [facility] Influenza Virus Vaccine Quad .5 mL IM 6+ MO 2020-05-30 00:00:00 Completed [facility] Pneumococcal Polysaccharide, PPSV23 (PNEUMOVAX) 2020-05-30 00:00:00 Completed [facility] Influenza Virus Vaccine Quad .5 mL IM 6+ MO 2020-05-30 00:00:00 Completed [facility] Pneumococcal Polysaccharide, PPSV23 (PNEUMOVAX) 2020-05-30 00:00:00 Completed [facility] Influenza Virus Vaccine Quad .5 mL IM 6+ MO 2020-05-30 00:00:00 Completed [facility] Pneumococcal Polysaccharide, PPSV23 (PNEUMOVAX) 2020-05-30 00:00:00 Completed [facility] Influenza Virus Vaccine Quad .5 mL IM 6+ MO 2020-05-30 00:00:00 Completed [facility] Pneumococcal Polysaccharide, PPSV23 (PNEUMOVAX) 2020-05-30 00:00:00 Completed [facility] Influenza Virus Vaccine Quad .5 mL IM 6+ MO 2020-05-30 00:00:00 Completed [facility] Pneumococcal Polysaccharide, PPSV23 (PNEUMOVAX) 2020-05-30 00:00:00 Completed [facility] Influenza Virus Vaccine Quad .5 mL IM 6+ MO 2020-05-30 00:00:00 Completed [facility] Pneumococcal Polysaccharide, PPSV23 (PNEUMOVAX) 2020-05-30 00:00:00 Completed [facility] Influenza Virus Vaccine Quad .5 mL IM 6+ MO 2020-05-30 00:00:00 Completed [facility] Pneumococcal Polysaccharide, PPSV23 (PNEUMOVAX) 2020-05-30 00:00:00 Completed [facility] Influenza Virus Vaccine Quad .5 mL IM 6+ MO 2020-05-30 00:00:00 Completed [facility] Pneumococcal Polysaccharide, PPSV23 (PNEUMOVAX) 2020-05-30 00:00:00 Completed [facility] Influenza Virus Vaccine Quad .5 mL IM 6+ MO 2020-05-30 00:00:00 Completed [facility] Pneumococcal Polysaccharide, PPSV23 (PNEUMOVAX) 2020-05-30 00:00:00 Completed [facility] Influenza Virus Vaccine Quad .5 mL IM 6+ MO 2020-05-30 00:00:00 Completed [facility] Pneumococcal Polysaccharide, PPSV23 (PNEUMOVAX) 2020-05-30 00:00:00 Completed [facility] Influenza Virus Vaccine Quad .5 mL IM 6+ MO 2020-05-30 00:00:00 Completed [facility] Pneumococcal Polysaccharide, PPSV23 (PNEUMOVAX) 2020-05-30 00:00:00 Completed [facility] Influenza Virus Vaccine Quad .5 mL IM 6+ MO 2020-05-30 00:00:00 Completed [facility] Pneumococcal Polysaccharide, PPSV23 (PNEUMOVAX) 2020-05-30 00:00:00 Completed [facility] Influenza Virus Vaccine Quad .5 mL IM 6+ MO 2020-05-30 00:00:00 Completed [facility] Pneumococcal Polysaccharide, PPSV23 (PNEUMOVAX) 2020-05-30 00:00:00 Completed [facility] Influenza Virus Vaccine Quad .5 mL IM 6+ MO 2020-05-30 00:00:00 Completed [facility] Pneumococcal Polysaccharide, PPSV23 (PNEUMOVAX) 2020-05-30 00:00:00 Completed [facility] Influenza Virus Vaccine Quad .5 mL IM 6+ MO 2020-05-30 00:00:00 Completed [facility] Pneumococcal Polysaccharide, PPSV23 (PNEUMOVAX) 2020-05-30 00:00:00 Completed [facility] Influenza Virus Vaccine Quad .5 mL IM 6+ MO 2020-05-30 00:00:00 Completed [facility] Pneumococcal Polysaccharide, PPSV23 (PNEUMOVAX) 2020-05-30 00:00:00 Completed [facility] Influenza Virus Vaccine Quad .5 mL IM 6+ MO 2020-05-30 00:00:00 Completed [facility] Pneumococcal Polysaccharide, PPSV23 (PNEUMOVAX) 2020-05-30 00:00:00 Completed [facility] Influenza Virus Vaccine Quad .5 mL IM 6+ MO 2020-05-30 00:00:00 Completed [facility] Pneumococcal Polysaccharide, PPSV23 (PNEUMOVAX) 2020-05-30 00:00:00 Completed [facility] Influenza Virus Vaccine Quad .5 mL IM 6+ MO 2020-05-30 00:00:00 Completed [facility] Pneumococcal Polysaccharide, PPSV23 (PNEUMOVAX) 2020-05-30 00:00:00 Completed [facility] Influenza Virus Vaccine Quad .5 mL IM 6+ MO 2020-05-30 00:00:00 Completed [facility] Pneumococcal Polysaccharide, PPSV23 (PNEUMOVAX) 2020-05-30 00:00:00 Completed [facility] Influenza Virus Vaccine Quad .5 mL IM 6+ MO 2020-05-30 00:00:00 Completed [facility] Pneumococcal Polysaccharide, PPSV23 (PNEUMOVAX) 2020-05-30 00:00:00 Completed [facility] Influenza Virus Vaccine Quad .5 mL IM 6+ MO 2020-05-30 00:00:00 Completed [facility] Pneumococcal Polysaccharide, PPSV23 (PNEUMOVAX) 2020-05-30 00:00:00 Completed [facility] Influenza Virus Vaccine Quad .5 mL IM 6+ MO 2020-05-30 00:00:00 Completed [facility] Pneumococcal Polysaccharide, PPSV23 (PNEUMOVAX) 2020-05-30 00:00:00 Completed [facility] Influenza Virus Vaccine Quad .5 mL IM 6+ MO 2020-05-30 00:00:00 Completed [facility] Pneumococcal Polysaccharide, PPSV23 (PNEUMOVAX) 2020-05-30 00:00:00 Completed [facility] Influenza Virus Vaccine Quad .5 mL IM 6+ MO 2020-05-30 00:00:00 Completed [facility] Pneumococcal Polysaccharide, PPSV23 (PNEUMOVAX) 2020-05-30 00:00:00 Completed [facility] Influenza Virus Vaccine Quad .5 mL IM 6+ MO 2020-05-30 00:00:00 Completed [facility] Pneumococcal Polysaccharide, PPSV23 (PNEUMOVAX) 2020-05-30 00:00:00 Completed [facility] Influenza Virus Vaccine Quad .5 mL IM 6+ MO 2020-05-30 00:00:00 Completed [facility] Pneumococcal Polysaccharide, PPSV23 (PNEUMOVAX) 2020-05-30 00:00:00 Completed [facility] Influenza Virus Vaccine Quad .5 mL IM 6+ MO 2020-05-30 00:00:00 Completed [facility] Pneumococcal Polysaccharide, PPSV23 (PNEUMOVAX) 2020-05-30 00:00:00 Completed [facility] Influenza Virus Vaccine Quad .5 mL IM 6+ MO 2020-05-30 00:00:00 Completed [facility] Pneumococcal Polysaccharide, PPSV23 (PNEUMOVAX) 2020-05-30 00:00:00 Completed [facility] Influenza Virus Vaccine Quad .5 mL IM 6+ MO (FLUZONE/FLULAVAL/F LUARIX) 2020-05-30 00:00:00 Completed [facility] Pneumococcal Polysaccharide, PPSV23 (PNEUMOVAX) 2020-05-30 00:00:00 Completed [facility] Influenza Virus Vaccine Quad .5 mL IM 6+ MO (FLUZONE/FLULAVAL/F LUARIX) 2020-05-30 00:00:00 Completed [facility] Pneumococcal Polysaccharide, PPSV23 (PNEUMOVAX) 2020-05-30 00:00:00 Completed [facility] Influenza Virus Vaccine Quad .5 mL IM 6+ MO (FLUZONE/FLULAVAL/F LUARIX) 2020-05-30 00:00:00 Completed [facility] Pneumococcal Polysaccharide, PPSV23 (PNEUMOVAX) 2020-05-30 00:00:00 Completed [facility] Influenza Virus Vaccine Quad .5 mL IM 6+ MO (FLUZONE/FLULAVAL/F LUARIX) 2020-05-30 00:00:00 Completed [facility] Pneumococcal Polysaccharide, PPSV23 (PNEUMOVAX) 2020-05-30 00:00:00 Completed [facility] Influenza Virus Vaccine Quad .5 mL IM 6+ MO (FLUZONE/FLULAVAL/F LUARIX) 2020-05-30 00:00:00 Completed [facility] Pneumococcal Polysaccharide, PPSV23 (PNEUMOVAX) 2020-05-30 00:00:00 Completed [facility] Influenza Virus Vaccine Quad .5 mL IM 6+ MO (FLUZONE/FLULAVAL/F LUARIX) 2020-05-30 00:00:00 Completed [facility] Pneumococcal Polysaccharide, PPSV23 (PNEUMOVAX) 2020-05-30 00:00:00 Completed [facility] Influenza Virus Vaccine Quad .5 mL IM 6+ MO (FLUZONE/FLULAVAL/F LUARIX) 2020-05-30 00:00:00 Completed [facility] Pneumococcal Polysaccharide, PPSV23 (PNEUMOVAX) 2020-05-30 00:00:00 Completed [facility] Influenza Virus Vaccine Quad .5 mL IM 6+ MO (FLUZONE/FLULAVAL/F LUARIX) 2020-05-30 00:00:00 Completed [facility] Pneumococcal Polysaccharide, PPSV23 (PNEUMOVAX) 2020-05-30 00:00:00 Completed [facility] Td 2020-02-17 00:00:00 Completed [facility] Td 2020-02-17 00:00:00 Completed [facility] Td 2020-02-17 00:00:00 Completed [facility] Td 2020-02-17 00:00:00 Completed [facility] Td 2020-02-17 00:00:00 Completed [facility] Td 2020-02-17 00:00:00 Completed [facility] Td 2020-02-17 00:00:00 Completed [facility] Td 2020-02-17 00:00:00 Completed [facility] Td 2020-02-17 00:00:00 Completed [facility] Td 2020-02-17 00:00:00 Completed [facility] Td 2020-02-17 00:00:00 Completed [facility] Td 2020-02-17 00:00:00 Completed [facility] Td 2020-02-17 00:00:00 Completed [facility] Td 2020-02-17 00:00:00 Completed [facility] Td 2020-02-17 00:00:00 Completed [facility] TD, NOS 2020-02-17 00:00:00 Completed [facility] TD, NOS 2020-02-17 00:00:00 Completed [facility] TD, NOS 2020-02-17 00:00:00 Completed [facility] TD, NOS 2020-02-17 00:00:00 Completed [facility] TD, NOS 2020-02-17 00:00:00 Completed [facility] TD, NOS 2020-02-17 00:00:00 Completed [facility] TD, NOS 2020-02-17 00:00:00 Completed [facility] TD, NOS 2020-02-17 00:00:00 Completed [facility] TD, NOS 2020-02-17 00:00:00 Completed [facility] TD, NOS 2020-02-17 00:00:00 Completed [facility] TD, NOS 2020-02-17 00:00:00 Completed [facility] TD, NOS 2020-02-17 00:00:00 Completed [facility] TD, NOS 2020-02-17 00:00:00 Completed [facility] TD, NOS 2020-02-17 00:00:00 Completed [facility] TD, NOS 2020-02-17 00:00:00 Completed [facility] TD, NOS 2020-02-17 00:00:00 Completed [facility] TD, NOS 2020-02-17 00:00:00 Completed [facility] TD, NOS 2020-02-17 00:00:00 Completed [facility] TD, NOS 2020-02-17 00:00:00 Completed [facility] TD, NOS 2020-02-17 00:00:00 Completed [facility] TD, NOS 2020-02-17 00:00:00 Completed [facility] TD, NOS 2020-02-17 00:00:00 Completed [facility] TD, NOS 2020-02-17 00:00:00 Completed [facility] TD, NOS 2020-02-17 00:00:00 Completed [facility] TD, NOS 2020-02-17 00:00:00 Completed [facility] TD, NOS 2020-02-17 00:00:00 Completed [facility] TD, NOS 2020-02-17 00:00:00 Completed [facility] TD, NOS 2020-02-17 00:00:00 Completed [facility] TD, NOS 2020-02-17 00:00:00 Completed [facility] TD, NOS 2020-02-17 00:00:00 Completed [facility] TD, NOS 2020-02-17 00:00:00 Completed [facility] TD, NOS 2020-02-17 00:00:00 Completed [facility] TD, NOS 2020-02-17 00:00:00 Completed [facility] TD, NOS 2020-02-17 00:00:00 Completed [facility] TD, NOS 2020-02-17 00:00:00 Completed [facility] TD, NOS 2020-02-17 00:00:00 Completed [facility] TD, NOS 2020-02-17 00:00:00 Completed [facility] TD, NOS 2020-02-17 00:00:00 Completed [facility] TD, NOS 2020-02-17 00:00:00 Completed [facility] TD, NOS 2020-02-17 00:00:00 Completed [facility] TD, NOS 2020-02-17 00:00:00 Completed [facility] TD, NOS 2020-02-17 00:00:00 Completed [facility] TD, NOS 2020-02-17 00:00:00 Completed [facility] TD, NOS 2020-02-17 00:00:00 Completed [facility] TD, NOS 2020-02-17 00:00:00 Completed [facility] TD, NOS 2020-02-17 00:00:00 Completed [facility] TD, NOS 2020-02-17 00:00:00 Completed [facility] TD, NOS 2020-02-17 00:00:00 Completed [facility] Influenza Virus Vaccine (3+ yrs) 2016-06-05 00:00:00 Completed [facility] Influenza Virus Vaccine 2016-06-05 00:00:00 Completed [facility] Influenza Virus Vaccine (3+ yrs) 2016-06-05 00:00:00 Completed [facility] Influenza Virus Vaccine 2016-06-05 00:00:00 Completed [facility] Influenza Virus Vaccine (3+ yrs) 2016-06-05 00:00:00 Completed [facility] Influenza Virus Vaccine 2016-06-05 00:00:00 Completed [facility] Influenza Virus Vaccine (3+ yrs) 2016-06-05 00:00:00 Completed [facility] Influenza Virus Vaccine 2016-06-05 00:00:00 Completed [facility] Influenza Virus Vaccine (3+ yrs) 2016-06-05 00:00:00 Completed [facility] Influenza Virus Vaccine 2016-06-05 00:00:00 Completed [facility] Influenza Virus Vaccine (3+ yrs) 2016-06-05 00:00:00 Completed [facility] Influenza Virus Vaccine 2016-06-05 00:00:00 Completed [facility] Influenza Virus Vaccine (3+ yrs) 2016-06-05 00:00:00 Completed [facility] Influenza Virus Vaccine 2016-06-05 00:00:00 Completed [facility] Influenza Virus Vaccine (3+ yrs) 2016-06-05 00:00:00 Completed [facility] Influenza Virus Vaccine 2016-06-05 00:00:00 Completed [facility] Influenza Virus Vaccine (3+ yrs) 2016-06-05 00:00:00 Completed [facility] Influenza Virus Vaccine 2016-06-05 00:00:00 Completed [facility] Influenza Virus Vaccine (3+ yrs) 2016-06-05 00:00:00 Completed [facility] Influenza Virus Vaccine 2016-06-05 00:00:00 Completed [facility] Influenza Virus Vaccine (3+ yrs) 2016-06-05 00:00:00 Completed [facility] Influenza Virus Vaccine 2016-06-05 00:00:00 Completed [facility] Influenza Virus Vaccine (3+ yrs) 2016-06-05 00:00:00 Completed [facility] Influenza Virus Vaccine 2016-06-05 00:00:00 Completed [facility] Influenza Virus Vaccine (3+ yrs) 2016-06-05 00:00:00 Completed [facility] Influenza Virus Vaccine 2016-06-05 00:00:00 Completed [facility] Influenza Virus Vaccine (3+ yrs) 2016-06-05 00:00:00 Completed [facility] Influenza Virus Vaccine 2016-06-05 00:00:00 Completed [facility] Influenza Virus Vaccine (3+ yrs) 2016-06-05 00:00:00 Completed [facility] Influenza Virus Vaccine 2016-06-05 00:00:00 Completed [facility] Influenza Virus Vaccine (3+ yrs) 2016-06-05 00:00:00 Completed [facility] Influenza Virus Vaccine 2016-06-05 00:00:00 Completed [facility] Influenza Virus Vaccine (3+ yrs) 2016-06-05 00:00:00 Completed [facility] Influenza Virus Vaccine 2016-06-05 00:00:00 Completed [facility] Influenza Virus Vaccine (3+ yrs) 2016-06-05 00:00:00 Completed [facility] Influenza Virus Vaccine 2016-06-05 00:00:00 Completed [facility] Influenza Virus Vaccine (3+ yrs) 2016-06-05 00:00:00 Completed [facility] Influenza Virus Vaccine 2016-06-05 00:00:00 Completed [facility] Influenza Virus Vaccine (3+ yrs) 2016-06-05 00:00:00 Completed [facility] Influenza Virus Vaccine 2016-06-05 00:00:00 Completed [facility] Influenza Virus Vaccine (3+ yrs) 2016-06-05 00:00:00 Completed [facility] Influenza Virus Vaccine 2016-06-05 00:00:00 Completed [facility] Influenza Virus Vaccine (3+ yrs) 2016-06-05 00:00:00 Completed [facility] Influenza Virus Vaccine 2016-06-05 00:00:00 Completed [facility] Influenza Virus Vaccine (3+ yrs) 2016-06-05 00:00:00 Completed [facility] Influenza Virus Vaccine 2016-06-05 00:00:00 Completed [facility] Influenza Virus Vaccine (3+ yrs) 2016-06-05 00:00:00 Completed [facility] Influenza Virus Vaccine 2016-06-05 00:00:00 Completed [facility] Influenza Virus Vaccine (3+ yrs) 2016-06-05 00:00:00 Completed [facility] Influenza Virus Vaccine 2016-06-05 00:00:00 Completed [facility] Influenza Virus Vaccine (3+ yrs) 2016-06-05 00:00:00 Completed [facility] Influenza Virus Vaccine 2016-06-05 00:00:00 Completed [facility] Influenza Virus Vaccine (3+ yrs) 2016-06-05 00:00:00 Completed [facility] Influenza Virus Vaccine 2016-06-05 00:00:00 Completed [facility] Influenza Virus Vaccine (3+ yrs) 2016-06-05 00:00:00 Completed [facility] Influenza Virus Vaccine 2016-06-05 00:00:00 Completed [facility] Influenza Virus Vaccine (3+ yrs) 2016-06-05 00:00:00 Completed [facility] Influenza Virus Vaccine 2016-06-05 00:00:00 Completed [facility] Influenza Virus Vaccine (3+ yrs) 2016-06-05 00:00:00 Completed [facility] Influenza Virus Vaccine 2016-06-05 00:00:00 Completed [facility] Influenza Virus Vaccine (3+ yrs) 2016-06-05 00:00:00 Completed [facility] Influenza Virus Vaccine 2016-06-05 00:00:00 Completed [facility] Influenza Virus Vaccine (3+ yrs) 2016-06-05 00:00:00 Completed [facility] Influenza Virus Vaccine 2016-06-05 00:00:00 Completed [facility] Influenza Virus Vaccine (3+ yrs) 2016-06-05 00:00:00 Completed [facility] Influenza Virus Vaccine 2016-06-05 00:00:00 Completed [facility] Influenza Virus Vaccine (3+ yrs) 2016-06-05 00:00:00 Completed [facility] Influenza Virus Vaccine 2016-06-05 00:00:00 Completed [facility] Influenza Virus Vaccine (3+ yrs) 2016-06-05 00:00:00 Completed [facility] Influenza Virus Vaccine 2016-06-05 00:00:00 Completed [facility] Influenza Virus Vaccine (3+ yrs) 2016-06-05 00:00:00 Completed [facility] Influenza Virus Vaccine 2016-06-05 00:00:00 Completed [facility] Influenza Virus Vaccine (3+ yrs) 2016-06-05 00:00:00 Completed [facility] Influenza Virus Vaccine 2016-06-05 00:00:00 Completed [facility] Influenza Virus Vaccine (3+ yrs) 2016-06-05 00:00:00 Completed [facility] Influenza Virus Vaccine 2016-06-05 00:00:00 Completed [facility] Influenza Virus Vaccine (3+ yrs) 2016-06-05 00:00:00 Completed [facility] Influenza Virus Vaccine 2016-06-05 00:00:00 Completed [facility] Influenza Virus Vaccine (3+ yrs) 2016-06-05 00:00:00 Completed [facility] Influenza Virus Vaccine 2016-06-05 00:00:00 Completed [facility] Influenza Virus Vaccine (3+ yrs) 2016-06-05 00:00:00 Completed [facility] Influenza Virus Vaccine 2016-06-05 00:00:00 Completed [facility] Influenza Virus Vaccine (3+ yrs) 2016-06-05 00:00:00 Completed [facility] Influenza Virus Vaccine 2016-06-05 00:00:00 Completed [facility] Influenza Virus Vaccine (3+ yrs) 2016-06-05 00:00:00 Completed [facility] Influenza Virus Vaccine 2016-06-05 00:00:00 Completed [facility] Influenza Virus Vaccine (3+ yrs) 2016-06-05 00:00:00 Completed [facility] Influenza Virus Vaccine 2016-06-05 00:00:00 Completed [facility] Influenza Virus Vaccine (3+ yrs) 2016-06-05 00:00:00 Completed [facility] Influenza Virus Vaccine 2016-06-05 00:00:00 Completed [facility] Influenza Virus Vaccine (3+ yrs) 2016-06-05 00:00:00 Completed [facility] Influenza Virus Vaccine 2016-06-05 00:00:00 Completed [facility] Influenza Virus Vaccine (3+ yrs) 2016-06-05 00:00:00 Completed [facility] Influenza Virus Vaccine 2016-06-05 00:00:00 Completed [facility] Influenza Virus Vaccine (3+ yrs) 2016-06-05 00:00:00 Completed [facility] Influenza Virus Vaccine 2016-06-05 00:00:00 Completed [facility] Influenza Virus Vaccine (3+ yrs) 2016-06-05 00:00:00 Completed [facility] Influenza Virus Vaccine 2016-06-05 00:00:00 Completed [facility] Influenza Virus Vaccine (3+ yrs) 2016-06-05 00:00:00 Completed [facility] Influenza Virus Vaccine 2016-06-05 00:00:00 Completed [facility] Influenza Virus Vaccine (3+ yrs) 2016-06-05 00:00:00 Completed [facility] Influenza Virus Vaccine 2016-06-05 00:00:00 Completed [facility] Influenza Virus Vaccine (3+ yrs) 2016-06-05 00:00:00 Completed [facility] Influenza Virus Vaccine 2016-06-05 00:00:00 Completed [facility] Influenza Virus Vaccine (3+ yrs) 2016-06-05 00:00:00 Completed [facility] Influenza Virus Vaccine 2016-06-05 00:00:00 Completed [facility] Influenza Virus Vaccine (3+ yrs) 2016-06-05 00:00:00 Completed [facility] Influenza Virus Vaccine 2016-06-05 00:00:00 Completed [facility] Influenza Virus Vaccine (3+ yrs) 2016-06-05 00:00:00 Completed [facility] Influenza Virus Vaccine 2016-06-05 00:00:00 Completed [facility] Influenza Virus Vaccine (3+ yrs) 2016-06-05 00:00:00 Completed [facility] Influenza Virus Vaccine 2016-06-05 00:00:00 Completed [facility] Influenza Virus Vaccine (3+ yrs) 2016-06-05 00:00:00 Completed [facility] Influenza Virus Vaccine 2016-06-05 00:00:00 Completed [facility] Influenza Virus Vaccine (3+ yrs) 2016-06-05 00:00:00 Completed [facility] Influenza Virus Vaccine 2016-06-05 00:00:00 Completed [facility] Influenza Virus Vaccine (3+ yrs) 2016-06-05 00:00:00 Completed [facility] Influenza Virus Vaccine 2016-06-05 00:00:00 Completed [facility] Influenza Virus Vaccine (3+ yrs) 2016-06-05 00:00:00 Completed [facility] Influenza Virus Vaccine 2016-06-05 00:00:00 Completed [facility] Influenza Virus Vaccine (3+ yrs) 2016-06-05 00:00:00 Completed [facility] Influenza Virus Vaccine 2016-06-05 00:00:00 Completed [facility] Influenza Virus Vaccine (3+ yrs) 2016-06-05 00:00:00 Completed [facility] Influenza Virus Vaccine 2016-06-05 00:00:00 Completed [facility] Influenza Virus Vaccine (3+ yrs) 2016-06-05 00:00:00 Completed [facility] Influenza Virus Vaccine 2016-06-05 00:00:00 Completed [facility] TDAP 2016-02-28 00:00:00 Completed [facility] TDAP 2016-02-28 00:00:00 Completed [facility] TDAP 2016-02-28 00:00:00 Completed [facility] TDAP 2016-02-28 00:00:00 Completed [facility] TDAP 2016-02-28 00:00:00 Completed [facility] TDAP 2016-02-28 00:00:00 Completed [facility] TDAP 2016-02-28 00:00:00 Completed [facility] TDAP 2016-02-28 00:00:00 Completed [facility] TDAP 2016-02-28 00:00:00 Completed [facility] TDAP 2016-02-28 00:00:00 Completed [facility] TDAP 2016-02-28 00:00:00 Completed [facility] TDAP 2016-02-28 00:00:00 Completed [facility] TDAP 2016-02-28 00:00:00 Completed [facility] TDAP 2016-02-28 00:00:00 Completed [facility] TDAP 2016-02-28 00:00:00 Completed [facility] TDAP 2016-02-28 00:00:00 Completed [facility] TDAP 2016-02-28 00:00:00 Completed [facility] TDAP 2016-02-28 00:00:00 Completed [facility] TDAP 2016-02-28 00:00:00 Completed [facility] TDAP 2016-02-28 00:00:00 Completed [facility] TDAP 2016-02-28 00:00:00 Completed [facility] TDAP 2016-02-28 00:00:00 Completed [facility] TDAP 2016-02-28 00:00:00 Completed [facility] TDAP 2016-02-28 00:00:00 Completed [facility] TDAP 2016-02-28 00:00:00 Completed [facility] TDAP 2016-02-28 00:00:00 Completed [facility] TDAP 2016-02-28 00:00:00 Completed [facility] TDAP 2016-02-28 00:00:00 Completed [facility] TDAP 2016-02-28 00:00:00 Completed [facility] TDAP 2016-02-28 00:00:00 Completed [facility] TDAP 2016-02-28 00:00:00 Completed [facility] TDAP 2016-02-28 00:00:00 Completed [facility] TDAP 2016-02-28 00:00:00 Completed [facility] TDAP 2016-02-28 00:00:00 Completed [facility] TDAP 2016-02-28 00:00:00 Completed [facility] TDAP 2016-02-28 00:00:00 Completed [facility] TDAP 2016-02-28 00:00:00 Completed [facility] TDAP 2016-02-28 00:00:00 Completed [facility] TDAP 2016-02-28 00:00:00 Completed [facility] TDAP 2016-02-28 00:00:00 Completed [facility] TDAP 2016-02-28 00:00:00 Completed [facility] TDAP 2016-02-28 00:00:00 Completed [facility] TDAP 2016-02-28 00:00:00 Completed [facility] TDAP 2016-02-28 00:00:00 Completed [facility] TDAP 2016-02-28 00:00:00 Completed [facility] TDAP 2016-02-28 00:00:00 Completed [facility] TDAP 2016-02-28 00:00:00 Completed [facility] TDAP 2016-02-28 00:00:00 Completed [facility] TDAP 2016-02-28 00:00:00 Completed [facility] TDAP 2016-02-28 00:00:00 Completed [facility] TDAP 2016-02-28 00:00:00 Completed [facility] TDAP 2016-02-28 00:00:00 Completed [facility] TDAP 2016-02-28 00:00:00 Completed [facility] TDAP 2016-02-28 00:00:00 Completed [facility] TDAP 2016-02-28 00:00:00 Completed [facility] TDAP 2016-02-28 00:00:00 Completed [facility] TDAP 2016-02-28 00:00:00 Completed [facility] TDAP 2016-02-28 00:00:00 Completed [facility] TDAP 2016-02-28 00:00:00 Completed [facility] TDAP 2016-02-28 00:00:00 Completed [facility] TDAP 2016-02-28 00:00:00 Completed [facility] TDAP 2016-02-28 00:00:00 Completed [facility] TDAP 2016-02-28 00:00:00 Completed [facility] Influenza Virus Vaccine (3+ yrs) 2015-04-24 00:00:00 Completed [facility] Influenza Virus Vaccine 2015-04-24 00:00:00 Completed [facility] Influenza Virus Vaccine (3+ yrs) 2015-04-24 00:00:00 Completed [facility] Influenza Virus Vaccine 2015-04-24 00:00:00 Completed [facility] Influenza Virus Vaccine (3+ yrs) 2015-04-24 00:00:00 Completed [facility] Influenza Virus Vaccine 2015-04-24 00:00:00 Completed [facility] Influenza Virus Vaccine (3+ yrs) 2015-04-24 00:00:00 Completed [facility] Influenza Virus Vaccine 2015-04-24 00:00:00 Completed [facility] Influenza Virus Vaccine (3+ yrs) 2015-04-24 00:00:00 Completed [facility] Influenza Virus Vaccine 2015-04-24 00:00:00 Completed [facility] Influenza Virus Vaccine (3+ yrs) 2015-04-24 00:00:00 Completed [facility] Influenza Virus Vaccine 2015-04-24 00:00:00 Completed [facility] Influenza Virus Vaccine (3+ yrs) 2015-04-24 00:00:00 Completed [facility] Influenza Virus Vaccine 2015-04-24 00:00:00 Completed [facility] Influenza Virus Vaccine (3+ yrs) 2015-04-24 00:00:00 Completed [facility] Influenza Virus Vaccine 2015-04-24 00:00:00 Completed [facility] Influenza Virus Vaccine (3+ yrs) 2015-04-24 00:00:00 Completed [facility] Influenza Virus Vaccine 2015-04-24 00:00:00 Completed [facility] Influenza Virus Vaccine (3+ yrs) 2015-04-24 00:00:00 Completed [facility] Influenza Virus Vaccine 2015-04-24 00:00:00 Completed [facility] Influenza Virus Vaccine (3+ yrs) 2015-04-24 00:00:00 Completed [facility] Influenza Virus Vaccine 2015-04-24 00:00:00 Completed [facility] Influenza Virus Vaccine (3+ yrs) 2015-04-24 00:00:00 Completed [facility] Influenza Virus Vaccine 2015-04-24 00:00:00 Completed [facility] Influenza Virus Vaccine (3+ yrs) 2015-04-24 00:00:00 Completed [facility] Influenza Virus Vaccine 2015-04-24 00:00:00 Completed [facility] Influenza Virus Vaccine (3+ yrs) 2015-04-24 00:00:00 Completed [facility] Influenza Virus Vaccine 2015-04-24 00:00:00 Completed [facility] Influenza Virus Vaccine (3+ yrs) 2015-04-24 00:00:00 Completed [facility] Influenza Virus Vaccine 2015-04-24 00:00:00 Completed [facility] Influenza Virus Vaccine (3+ yrs) 2015-04-24 00:00:00 Completed [facility] Influenza Virus Vaccine 2015-04-24 00:00:00 Completed [facility] Influenza Virus Vaccine (3+ yrs) 2015-04-24 00:00:00 Completed [facility] Influenza Virus Vaccine 2015-04-24 00:00:00 Completed [facility] Influenza Virus Vaccine (3+ yrs) 2015-04-24 00:00:00 Completed [facility] Influenza Virus Vaccine 2015-04-24 00:00:00 Completed [facility] Influenza Virus Vaccine (3+ yrs) 2015-04-24 00:00:00 Completed [facility] Influenza Virus Vaccine 2015-04-24 00:00:00 Completed [facility] Influenza Virus Vaccine (3+ yrs) 2015-04-24 00:00:00 Completed [facility] Influenza Virus Vaccine 2015-04-24 00:00:00 Completed [facility] Influenza Virus Vaccine (3+ yrs) 2015-04-24 00:00:00 Completed [facility] Influenza Virus Vaccine 2015-04-24 00:00:00 Completed [facility] Influenza Virus Vaccine (3+ yrs) 2015-04-24 00:00:00 Completed [facility] Influenza Virus Vaccine 2015-04-24 00:00:00 Completed [facility] Influenza Virus Vaccine (3+ yrs) 2015-04-24 00:00:00 Completed [facility] Influenza Virus Vaccine 2015-04-24 00:00:00 Completed [facility] Influenza Virus Vaccine (3+ yrs) 2015-04-24 00:00:00 Completed [facility] Influenza Virus Vaccine 2015-04-24 00:00:00 Completed [facility] Influenza Virus Vaccine (3+ yrs) 2015-04-24 00:00:00 Completed [facility] Influenza Virus Vaccine 2015-04-24 00:00:00 Completed [facility] Influenza Virus Vaccine (3+ yrs) 2015-04-24 00:00:00 Completed [facility] Influenza Virus Vaccine 2015-04-24 00:00:00 Completed [facility] Influenza Virus Vaccine (3+ yrs) 2015-04-24 00:00:00 Completed [facility] Influenza Virus Vaccine 2015-04-24 00:00:00 Completed [facility] Influenza Virus Vaccine (3+ yrs) 2015-04-24 00:00:00 Completed [facility] Influenza Virus Vaccine 2015-04-24 00:00:00 Completed [facility] Influenza Virus Vaccine (3+ yrs) 2015-04-24 00:00:00 Completed [facility] Influenza Virus Vaccine 2015-04-24 00:00:00 Completed [facility] Influenza Virus Vaccine (3+ yrs) 2015-04-24 00:00:00 Completed [facility] Influenza Virus Vaccine 2015-04-24 00:00:00 Completed [facility] Influenza Virus Vaccine (3+ yrs) 2015-04-24 00:00:00 Completed [facility] Influenza Virus Vaccine 2015-04-24 00:00:00 Completed [facility] Influenza Virus Vaccine (3+ yrs) 2015-04-24 00:00:00 Completed [facility] Influenza Virus Vaccine 2015-04-24 00:00:00 Completed [facility] Influenza Virus Vaccine (3+ yrs) 2015-04-24 00:00:00 Completed [facility] Influenza Virus Vaccine 2015-04-24 00:00:00 Completed [facility] Influenza Virus Vaccine (3+ yrs) 2015-04-24 00:00:00 Completed [facility] Influenza Virus Vaccine 2015-04-24 00:00:00 Completed [facility] Influenza Virus Vaccine (3+ yrs) 2015-04-24 00:00:00 Completed [facility] Influenza Virus Vaccine 2015-04-24 00:00:00 Completed [facility] Influenza Virus Vaccine (3+ yrs) 2015-04-24 00:00:00 Completed [facility] Influenza Virus Vaccine 2015-04-24 00:00:00 Completed [facility] Influenza Virus Vaccine (3+ yrs) 2015-04-24 00:00:00 Completed [facility] Influenza Virus Vaccine 2015-04-24 00:00:00 Completed [facility] Influenza Virus Vaccine (3+ yrs) 2015-04-24 00:00:00 Completed [facility] Influenza Virus Vaccine 2015-04-24 00:00:00 Completed [facility] Influenza Virus Vaccine (3+ yrs) 2015-04-24 00:00:00 Completed [facility] Influenza Virus Vaccine 2015-04-24 00:00:00 Completed [facility] Influenza Virus Vaccine (3+ yrs) 2015-04-24 00:00:00 Completed [facility] Influenza Virus Vaccine 2015-04-24 00:00:00 Completed [facility] Influenza Virus Vaccine (3+ yrs) 2015-04-24 00:00:00 Completed [facility] Influenza Virus Vaccine 2015-04-24 00:00:00 Completed [facility] Influenza Virus Vaccine (3+ yrs) 2015-04-24 00:00:00 Completed [facility] Influenza Virus Vaccine 2015-04-24 00:00:00 Completed [facility] Influenza Virus Vaccine (3+ yrs) 2015-04-24 00:00:00 Completed [facility] Influenza Virus Vaccine 2015-04-24 00:00:00 Completed [facility] Influenza Virus Vaccine (3+ yrs) 2015-04-24 00:00:00 Completed [facility] Influenza Virus Vaccine 2015-04-24 00:00:00 Completed [facility] Influenza Virus Vaccine (3+ yrs) 2015-04-24 00:00:00 Completed [facility] Influenza Virus Vaccine 2015-04-24 00:00:00 Completed [facility] Influenza Virus Vaccine (3+ yrs) 2015-04-24 00:00:00 Completed [facility] Influenza Virus Vaccine 2015-04-24 00:00:00 Completed [facility] Influenza Virus Vaccine (3+ yrs) 2015-04-24 00:00:00 Completed [facility] Influenza Virus Vaccine 2015-04-24 00:00:00 Completed [facility] Influenza Virus Vaccine (3+ yrs) 2015-04-24 00:00:00 Completed [facility] Influenza Virus Vaccine 2015-04-24 00:00:00 Completed [facility] Influenza Virus Vaccine (3+ yrs) 2015-04-24 00:00:00 Completed [facility] Influenza Virus Vaccine 2015-04-24 00:00:00 Completed [facility] Influenza Virus Vaccine (3+ yrs) 2015-04-24 00:00:00 Completed [facility] Influenza Virus Vaccine 2015-04-24 00:00:00 Completed [facility] Influenza Virus Vaccine (3+ yrs) 2015-04-24 00:00:00 Completed [facility] Influenza Virus Vaccine 2015-04-24 00:00:00 Completed [facility] Influenza Virus Vaccine (3+ yrs) 2015-04-24 00:00:00 Completed [facility] Influenza Virus Vaccine 2015-04-24 00:00:00 Completed [facility] Influenza Virus Vaccine (3+ yrs) 2015-04-24 00:00:00 Completed [facility] Influenza Virus Vaccine 2015-04-24 00:00:00 Completed [facility] Influenza Virus Vaccine (3+ yrs) 2015-04-24 00:00:00 Completed [facility] Influenza Virus Vaccine 2015-04-24 00:00:00 Completed [facility] Influenza Virus Vaccine (3+ yrs) 2015-04-24 00:00:00 Completed [facility] Influenza Virus Vaccine 2015-04-24 00:00:00 Completed [facility] Influenza Virus Vaccine (3+ yrs) 2015-04-24 00:00:00 Completed [facility] Influenza Virus Vaccine 2015-04-24 00:00:00 Completed [facility] Influenza Virus Vaccine (3+ yrs) 2015-04-24 00:00:00 Completed [facility] Influenza Virus Vaccine 2015-04-24 00:00:00 Completed [facility] Influenza Virus Vaccine (3+ yrs) 2015-04-24 00:00:00 Completed [facility] Influenza Virus Vaccine 2015-04-24 00:00:00 Completed [facility] Influenza Virus Vaccine (3+ yrs) 2015-04-24 00:00:00 Completed [facility] Influenza Virus Vaccine 2015-04-24 00:00:00 Completed [facility] Influenza Virus Vaccine (3+ yrs) 2015-04-24 00:00:00 Completed [facility] Influenza Virus Vaccine 2015-04-24 00:00:00 Completed [facility] Influenza Virus Vaccine (3+ yrs) 2015-04-24 00:00:00 Completed [facility] Influenza Virus Vaccine 2015-04-24 00:00:00 Completed [facility] Influenza Virus Vaccine (3+ yrs) 2015-04-24 00:00:00 Completed [facility] Influenza Virus Vaccine 2015-04-24 00:00:00 Completed [facility] Influenza Virus Vaccine (3+ yrs) 2015-04-24 00:00:00 Completed [facility] Influenza Virus Vaccine 2015-04-24 00:00:00 Completed [facility] Influenza Virus Vaccine 2014-03-30 00:00:00 Completed [facility] Influenza Virus Vaccine 2014-03-30 00:00:00 Completed [facility] Influenza Virus Vaccine 2014-03-30 00:00:00 Completed [facility] Influenza Virus Vaccine 2014-03-30 00:00:00 Completed [facility] Influenza Virus Vaccine 2014-03-30 00:00:00 Completed [facility] Influenza Virus Vaccine 2014-03-30 00:00:00 Completed [facility] Influenza Virus Vaccine 2014-03-30 00:00:00 Completed [facility] Influenza Virus Vaccine 2014-03-30 00:00:00 Completed [facility] Influenza Virus Vaccine 2014-03-30 00:00:00 Completed [facility] Influenza Virus Vaccine 2014-03-30 00:00:00 Completed [facility] Influenza Virus Vaccine 2014-03-30 00:00:00 Completed [facility] Influenza Virus Vaccine 2014-03-30 00:00:00 Completed [facility] Influenza Virus Vaccine 2014-03-30 00:00:00 Completed [facility] Influenza Virus Vaccine 2014-03-30 00:00:00 Completed [facility] Influenza Virus Vaccine 2014-03-30 00:00:00 Completed [facility] Influenza Virus Vaccine 2014-03-30 00:00:00 Completed [facility] Influenza Virus Vaccine 2014-03-30 00:00:00 Completed [facility] Influenza Virus Vaccine 2014-03-30 00:00:00 Completed [facility] Influenza Virus Vaccine 2014-03-30 00:00:00 Completed [facility] Influenza Virus Vaccine 2014-03-30 00:00:00 Completed [facility] Influenza Virus Vaccine 2014-03-30 00:00:00 Completed [facility] Influenza Virus Vaccine 2014-03-30 00:00:00 Completed [facility] Influenza Virus Vaccine 2014-03-30 00:00:00 Completed [facility] Influenza Virus Vaccine 2014-03-30 00:00:00 Completed [facility] Influenza Virus Vaccine 2014-03-30 00:00:00 Completed [facility] Influenza Virus Vaccine 2014-03-30 00:00:00 Completed [facility] Influenza Virus Vaccine 2014-03-30 00:00:00 Completed [facility] Influenza Virus Vaccine 2014-03-30 00:00:00 Completed [facility] Influenza Virus Vaccine 2014-03-30 00:00:00 Completed [facility] Influenza Virus Vaccine 2014-03-30 00:00:00 Completed [facility] Influenza Virus Vaccine 2014-03-30 00:00:00 Completed [facility] Influenza Virus Vaccine 2014-03-30 00:00:00 Completed [facility] Influenza Virus Vaccine 2014-03-30 00:00:00 [facility] [facility] Influenza Virus Vaccine 2014-03-30 00:00:00 Completed [facility] Influenza Virus Vaccine 2014-03-30 00:00:00 Completed [facility] Influenza Virus Vaccine 2014-03-30 00:00:00 Completed [facility] Influenza Virus Vaccine 2014-03-30 00:00:00 Completed [facility] Influenza Virus Vaccine 2014-03-30 00:00:00 Completed [facility] Influenza Virus Vaccine 2014-03-30 00:00:00 Completed [facility] Influenza Virus Vaccine 2014-03-30 00:00:00 Completed [facility] Influenza Virus Vaccine 2014-03-30 00:00:00 Completed [facility] Influenza Virus Vaccine 2014-03-30 00:00:00 Completed [facility] Influenza Virus Vaccine 2014-03-30 00:00:00 Completed [facility] Influenza Virus Vaccine 2014-03-30 00:00:00 Completed [facility] Influenza Virus Vaccine 2014-03-30 00:00:00 Completed [facility] Influenza Virus Vaccine 2014-03-30 00:00:00 Completed [facility] Influenza Virus Vaccine 2014-03-30 00:00:00 Completed [facility] Influenza Virus Vaccine 2014-03-30 00:00:00 Completed [facility] Influenza Virus Vaccine 2014-03-30 00:00:00 Completed [facility] Influenza Virus Vaccine 2014-03-30 00:00:00 Completed [facility] Influenza Virus Vaccine 2014-03-30 00:00:00 Completed [facility] Influenza Virus Vaccine 2014-03-30 00:00:00 Completed [facility] Influenza Virus Vaccine 2014-03-30 00:00:00 Completed [facility] Influenza Virus Vaccine 2014-03-30 00:00:00 Completed [facility] Influenza Virus Vaccine 2014-03-30 00:00:00 Completed [facility] Influenza Virus Vaccine 2014-03-30 00:00:00 Completed [facility] Influenza Virus Vaccine 2014-03-30 00:00:00 Completed [facility] Influenza Virus Vaccine 2014-03-30 00:00:00 Completed [facility] Influenza Virus Vaccine 2014-03-30 00:00:00 Completed [facility] Influenza Virus Vaccine 2014-03-30 00:00:00 Completed [facility] Influenza Virus Vaccine 2014-03-30 00:00:00 Completed [facility] Influenza Virus Vaccine 2014-03-30 00:00:00 Completed [facility] Influenza Virus Vaccine 2014-03-30 00:00:00 Completed [facility] Influenza Virus Vaccine 2013-05-03 00:00:00 Completed [facility] Influenza Virus Vaccine 2013-05-03 00:00:00 Completed [facility] Influenza Virus Vaccine 2013-05-03 00:00:00 Completed [facility] Influenza Virus Vaccine 2013-05-03 00:00:00 Completed [facility] Influenza Virus Vaccine 2013-05-03 00:00:00 Completed [facility] Influenza Virus Vaccine 2013-05-03 00:00:00 Completed [facility] Influenza Virus Vaccine 2013-05-03 00:00:00 Completed [facility] Influenza Virus Vaccine 2013-05-03 00:00:00 Completed [facility] Influenza Virus Vaccine 2013-05-03 00:00:00 Completed [facility] Influenza Virus Vaccine 2013-05-03 00:00:00 Completed [facility] Influenza Virus Vaccine 2013-05-03 00:00:00 Completed [facility] Influenza Virus Vaccine 2013-05-03 00:00:00 Completed [facility] Influenza Virus Vaccine 2013-05-03 00:00:00 Completed [facility] Influenza Virus Vaccine 2013-05-03 00:00:00 Completed [facility] Influenza Virus Vaccine 2013-05-03 00:00:00 Completed [facility] Influenza Virus Vaccine 2013-05-03 00:00:00 Completed [facility] Influenza Virus Vaccine 2013-05-03 00:00:00 Completed [facility] Influenza Virus Vaccine 2013-05-03 00:00:00 Completed [facility] Influenza Virus Vaccine 2013-05-03 00:00:00 Completed [facility] Influenza Virus Vaccine 2013-05-03 00:00:00 Completed [facility] Influenza Virus Vaccine 2013-05-03 00:00:00 Completed [facility] Influenza Virus Vaccine 2013-05-03 00:00:00 Completed [facility] Influenza Virus Vaccine 2013-05-03 00:00:00 Completed [facility] Influenza Virus Vaccine 2013-05-03 00:00:00 Completed [facility] Influenza Virus Vaccine 2013-05-03 00:00:00 Completed [facility] Influenza Virus Vaccine 2013-05-03 00:00:00 Completed [facility] Influenza Virus Vaccine 2013-05-03 00:00:00 Completed [facility] Influenza Virus Vaccine 2013-05-03 00:00:00 Completed [facility] Influenza Virus Vaccine 2013-05-03 00:00:00 Completed [facility] Influenza Virus Vaccine 2013-05-03 00:00:00 Completed [facility] Influenza Virus Vaccine 2013-05-03 00:00:00 Completed [facility] Influenza Virus Vaccine 2013-05-03 00:00:00 Completed [facility] Influenza Virus Vaccine 2013-05-03 00:00:00 Completed [facility] Influenza Virus Vaccine 2013-05-03 00:00:00 Completed [facility] Influenza Virus Vaccine 2013-05-03 00:00:00 Completed [facility] Influenza Virus Vaccine 2013-05-03 00:00:00 Completed [facility] Influenza Virus Vaccine 2013-05-03 00:00:00 Completed [facility] Influenza Virus Vaccine 2013-05-03 00:00:00 Completed [facility] Influenza Virus Vaccine 2013-05-03 00:00:00 Completed [facility] Influenza Virus Vaccine 2013-05-03 00:00:00 Completed [facility] Influenza Virus Vaccine 2013-05-03 00:00:00 Completed [facility] Influenza Virus Vaccine 2013-05-03 00:00:00 Completed [facility] Influenza Virus Vaccine 2013-05-03 00:00:00 Completed [facility] Influenza Virus Vaccine 2013-05-03 00:00:00 Completed [facility] Influenza Virus Vaccine 2013-05-03 00:00:00 Completed [facility] Influenza Virus Vaccine 2013-05-03 00:00:00 Completed [facility] Influenza Virus Vaccine 2013-05-03 00:00:00 Completed [facility] Influenza Virus Vaccine 2013-05-03 00:00:00 Completed [facility] Influenza Virus Vaccine 2013-05-03 00:00:00 Completed [facility] Influenza Virus Vaccine 2013-05-03 00:00:00 Completed [facility] Influenza Virus Vaccine 2013-05-03 00:00:00 Completed [facility] Influenza Virus Vaccine 2013-05-03 00:00:00 Completed [facility] Influenza Virus Vaccine 2013-05-03 00:00:00 Completed [facility] Influenza Virus Vaccine 2013-05-03 00:00:00 Completed [facility] Influenza Virus Vaccine 2013-05-03 00:00:00 Completed [facility] Influenza Virus Vaccine 2013-05-03 00:00:00 Completed [facility] Influenza Virus Vaccine 2013-05-03 00:00:00 Completed [facility] Influenza Virus Vaccine 2013-05-03 00:00:00 Completed [facility] Influenza Virus Vaccine 2013-05-03 00:00:00 Completed [facility] Influenza Virus Vaccine 2013-05-03 00:00:00 Completed [facility] Influenza Virus Vaccine 2013-05-03 00:00:00 Completed [facility] Influenza Virus Vaccine 2013-05-03 00:00:00 Completed [facility] Influenza Virus Vaccine 2013-05-03 00:00:00 Completed [facility] Influenza Virus Vaccine 2013-05-03 00:00:00 Completed Vital Signs Vital Name Observation Time Observation Value Comments S ource Systolic blood pressure 2025-01-01 15:01:00 121 mm[Hg] [facility] Diastolic blood pressure 2025-01-01 15:01:00 81 mm[Hg] [facility] Heart rate 2025-01-01 15:01:00 71 /min [facility] Body temperature 2025-01-01 15:01:00 36.61 Dariana [facility] Respiratory rate 2025-01-01 15:01:00 18 /min [facility] Body height 2025-01-01 15:01:00 175.3 cm [facility] Body weight 2025-01-01 15:01:00 125.601 kg [facility] BMI 2025-01-01 15:01:00 40.89 kg/m2 [facility] Oxygen saturation in Arterial blood by Pulse oximetry 2025-01-01 15:01:00 98 /min [facility] Systolic blood pressure 2024-10-25 13:07:00 129 mm[Hg] [facility] Diastolic blood pressure 2024-10-25 13:07:00 82 mm[Hg] [facility] Heart rate 2024-10-25 13:07:00 63 /min [facility] Body temperature 2024-10-25 13:07:00 36.61 Dariana [facility] Body height 2024-10-25 13:07:00 175.3 cm [facility] Body weight 2024-10-25 13:07:00 123.877 kg [facility] BMI 2024-10-25 13:07:00 40.33 kg/m2 [facility] Oxygen saturation in Arterial blood by Pulse oximetry 2024-10-25 13:07:00 98 /min [facility] Systolic blood pressure 2024-08-14 21:55:00 129 mm[Hg] [facility] Diastolic blood pressure 2024-08-14 21:55:00 81 mm[Hg] [facility] Heart rate 2024-08-14 21:54:00 82 /min [facility] Body temperature 2024-08-14 21:54:00 37.06 Dariana [facility] Respiratory rate 2024-08-14 21:54:00 18 /min [facility] Body height 2024-08-14 21:54:00 175.3 cm [facility] Body weight 2024-08-14 21:54:00 123.651 kg [facility] BMI 2024-08-14 21:54:00 40.26 kg/m2 [facility] Oxygen saturation in Arterial blood by Pulse oximetry 2024-08-14 21:54:00 97 /min [facility] Systolic blood pressure 2024-07-27 19:51:00 119 mm[Hg] [facility] Diastolic blood pressure 2024-07-27 19:51:00 75 mm[Hg] [facility] Heart rate 2024-07-27 19:51:00 91 [facility] Body temperature 2024-07-27 19:51:00 36.67 Dariana [facility] Body height 2024-07-27 19:51:00 175.3 cm [facility] Body weight 2024-07-27 19:51:00 126.1 kg [facility] BMI 2024-07-27 19:51:00 41.05 kg/m2 [facility] Oxygen saturation in Arterial blood by Pulse oximetry 2024-07-27 19:51:00 98 /min [facility] Systolic blood pressure 2024-05-31 19:38:00 127 mm[Hg] [facility] Diastolic blood pressure 2024-05-31 19:38:00 88 mm[Hg] [facility] Heart rate 2024-05-31 19:38:00 86 /min [facility] Body temperature 2024-05-31 19:38:00 36.83 Dariana [facility] Respiratory rate 2024-05-31 19:38:00 18 /min [facility] Body height 2024-05-31 19:38:00 175.3 cm [facility] Body weight 2024-05-31 19:38:00 122.471 kg [facility] BMI 2024-05-31 19:38:00 39.87 kg/m2 [facility] Oxygen saturation in Arterial blood by Pulse oximetry 2024-05-31 19:38:00 98 /min [facility] Systolic blood pressure 2024-04-26 18:29:00 131 mm[Hg] [facility] Diastolic blood pressure 2024-04-26 18:29:00 90 mm[Hg] [facility] Heart rate 2024-04-26 18:29:00 78 /min [facility] Body temperature 2024-04-26 18:29:00 36.83 Dariana [facility] Respiratory rate 2024-04-26 18:29:00 18 /min [facility] Body height 2024-04-26 18:29:00 175.3 cm [facility] Body weight 2024-04-26 18:29:00 125.147 kg [facility] BMI 2024-04-26 18:29:00 40.74 kg/m2 [facility] Oxygen saturation in Arterial blood by Pulse oximetry 2024-04-26 18:29:00 96 /min [facility] Systolic blood pressure 2024-04-04 18:42:00 111 mm[Hg] [facility] Diastolic blood pressure 2024-04-04 18:42:00 77 mm[Hg] [facility] Heart rate 2024-04-04 18:42:00 88 /min [facility] Body height 2024-04-04 18:42:00 175.3 cm [facility] Body weight 2024-04-04 18:42:00 125.147 kg [facility] BMI 2024-04-04 18:42:00 40.74 kg/m2 [facility] Oxygen saturation in Arterial blood by Pulse oximetry 2024-04-04 18:42:00 88 /min [facility] Systolic blood pressure 2024-04-03 19:33:00 123 mm[Hg] [facility] Diastolic blood pressure 2024-04-03 19:33:00 78 mm[Hg] [facility] Heart rate 2024-04-03 19:33:00 83 /min [facility] Body temperature 2024-04-03 19:33:00 36.83 Dariana [facility] Respiratory rate 2024-04-03 19:33:00 18 /min [facility] Body height 2024-04-03 19:33:00 175.3 cm [facility] Body weight 2024-04-03 19:33:00 122.29 kg [facility] BMI 2024-04-03 19:33:00 39.81 kg/m2 [facility] Oxygen saturation in Arterial blood by Pulse oximetry 2024-04-03 19:33:00 98 /min [facility] Systolic blood pressure 2024-03-24 19:41:00 123 mm[Hg] [facility] Diastolic blood pressure 2024-03-24 19:41:00 84 mm[Hg] [facility] Heart rate 2024-03-24 19:41:00 84 /min [facility] Body temperature 2024-03-24 19:41:00 37.17 Dariana [facility] Respiratory rate 2024-03-24 19:41:00 18 /min [facility] Body height 2024-03-24 19:41:00 175.3 cm [facility] Body weight 2024-03-24 19:41:00 124.83 kg [facility] BMI 2024-03-24 19:41:00 40.64 kg/m2 [facility] Oxygen saturation in Arterial blood by Pulse oximetry 2024-03-24 19:41:00 97 /min [facility] Systolic blood pressure 2024-02-22 20:24:00 127 mm[Hg] [facility] Diastolic blood pressure 2024-02-22 20:24:00 87 mm[Hg] [facility] Heart rate 2024-02-22 20:24:00 93 /min [facility] Body temperature 2024-02-22 20:24:00 36.78 Dariana [facility] Respiratory rate 2024-02-22 20:24:00 18 /min [facility] Body height 2024-02-22 20:24:00 175.3 cm [facility] Body weight 2024-02-22 20:24:00 124.24 kg [facility] BMI 2024-02-22 20:24:00 40.45 kg/m2 [facility] Oxygen saturation in Arterial blood by Pulse oximetry 2024-02-22 20:24:00 97 /min [facility] Respiratory rate 2024-02-17 15:00:00 16 /min [facility] Body height 2024-02-17 15:00:00 175.3 cm [facility] Body weight 2024-02-17 15:00:00 121.564 kg [facility] BMI 2024-02-17 15:00:00 39.58 kg/m2 [facility] Systolic blood pressure 2024-01-31 19:32:00 125 mm[Hg] [facility] Diastolic blood pressure 2024-01-31 19:32:00 85 mm[Hg] [facility] Heart rate 2024-01-31 19:32:00 74 /min [facility] Body temperature 2024-01-31 19:32:00 37 Dariana [facility] Respiratory rate 2024-01-31 19:32:00 18 /min [facility] Body height 2024-01-31 19:32:00 175.3 cm [facility] Body weight 2024-01-31 19:32:00 121.972 kg [facility] BMI 2024-01-31 19:32:00 39.71 kg/m2 [facility] Oxygen saturation in Arterial blood by Pulse oximetry 2024-01-31 19:32:00 98 /min [facility] Systolic blood pressure 2024-01-26 19:55:00 123 mm[Hg] [facility] Diastolic blood pressure 2024-01-26 19:55:00 84 mm[Hg] [facility] Heart rate 2024-01-26 19:55:00 94 /min [facility] Respiratory rate 2024-01-26 19:55:00 16 /min [facility] Body height 2024-01-26 19:55:00 175.3 cm [facility] Body weight 2024-01-26 19:55:00 122.471 kg [facility] BMI 2024-01-26 19:55:00 39.87 kg/m2 [facility] Systolic blood pressure 2024-01-19 14:53:00 125 mm[Hg] [facility] Diastolic blood pressure 2024-01-19 14:53:00 85 mm[Hg] [facility] Heart rate 2024-01-19 14:53:00 73 /min [facility] Body temperature 2024-01-19 14:53:00 36.56 Dariana [facility] Respiratory rate 2024-01-19 14:53:00 17 /min [facility] Body weight 2024-01-19 14:53:00 123.378 kg [facility] BMI 2024-01-19 14:53:00 40.17 kg/m2 [facility] Oxygen saturation in Arterial blood by Pulse oximetry 2024-01-19 14:53:00 96 /min [facility] Systolic blood pressure 2024-01-06 12:15:00 124 mm[Hg] [facility] Diastolic blood pressure 2024-01-06 12:15:00 79 mm[Hg] [facility] Heart rate 2024-01-06 12:15:00 69 /min [facility] Body height 2024-01-06 12:15:00 175.3 cm [facility] Body weight 2024-01-06 12:15:00 124.694 kg [facility] BMI 2024-01-06 12:15:00 40.60 kg/m2 [facility] Oxygen saturation in Arterial blood by Pulse oximetry 2024-01-06 12:15:00 98 /min [facility] Systolic blood pressure 2023-12-17 15:26:00 121 mm[Hg] [facility] Diastolic blood pressure 2023-12-17 15:26:00 78 mm[Hg] [facility] Heart rate 2023-12-17 15:26:00 80 /min [facility] Body temperature 2023-12-17 15:26:00 36.78 Dariana [facility] Respiratory rate 2023-12-17 15:26:00 18 /min [facility] Body height 2023-12-17 15:26:00 175.3 cm [facility] Body weight 2023-12-17 15:26:00 127.551 kg [facility] BMI 2023-12-17 15:26:00 41.53 kg/m2 [facility] Oxygen saturation in Arterial blood by Pulse oximetry 2023-12-17 15:26:00 96 /min [facility] Systolic blood pressure 2023-11-16 18:28:00 129 mm[Hg] [facility] Diastolic blood pressure 2023-11-16 18:28:00 84 mm[Hg] [facility] Heart rate 2023-11-16 18:28:00 72 /min [facility] Body temperature 2023-11-16 18:28:00 36.72 Dariana [facility] Respiratory rate 2023-11-16 18:28:00 18 /min [facility] Body height 2023-11-16 18:28:00 175.3 cm [facility] Body weight 2023-11-16 18:28:00 122.018 kg [facility] BMI 2023-11-16 18:28:00 39.72 kg/m2 [facility] Oxygen saturation in Arterial blood by Pulse oximetry 2023-11-16 18:28:00 97 /min [facility] Systolic blood pressure 2023-11-09 18:45:00 136 mm[Hg] [facility] Diastolic blood pressure 2023-11-09 18:45:00 79 mm[Hg] [facility] Heart rate 2023-11-09 18:44:00 82 /min [facility] Body temperature 2023-11-09 18:44:00 36.33 Dariana [facility] Respiratory rate 2023-11-09 18:44:00 14 /min [facility] Body weight 2023-11-09 18:44:00 122.471 kg [facility] BMI 2023-11-09 18:44:00 39.87 kg/m2 [facility] Oxygen saturation in Arterial blood by Pulse oximetry 2023-11-09 18:44:00 97 /min [facility] Systolic blood pressure 2023-05-24 14:05:00 107 mm[Hg] [facility] Diastolic blood pressure 2023-05-24 14:05:00 72 mm[Hg] [facility] Heart rate 2023-05-24 14:05:00 68 /min [facility] Body height 2023-05-24 14:05:00 175.3 cm [facility] Body weight 2023-05-24 14:05:00 120.657 kg [facility] BMI 2023-05-24 14:05:00 39.28 kg/m2 [facility] Oxygen saturation in Arterial blood by Pulse oximetry 2023-05-24 14:05:00 97 /min [facility] Systolic blood pressure 2023-05-10 18:16:00 129 mm[Hg] [facility] Diastolic blood pressure 2023-05-10 18:16:00 86 mm[Hg] [facility] Heart rate 2023-05-10 18:16:00 78 /min [facility] Respiratory rate 2023-05-10 18:16:00 18 /min [facility] Body height 2023-05-10 18:16:00 175.3 cm [facility] Body weight 2023-05-10 18:16:00 120.294 kg [facility] BMI 2023-05-10 18:16:00 39.16 kg/m2 [facility] Oxygen saturation in Arterial blood by Pulse oximetry 2023-05-10 18:16:00 98 /min [facility] Systolic blood pressure 2023-03-30 16:40:00 116 mm[Hg] [facility] Diastolic blood pressure 2023-03-30 16:40:00 76 mm[Hg] [facility] Heart rate 2023-03-30 16:40:00 63 /min [facility] Body height 2023-03-30 16:40:00 175.3 cm [facility] Body weight 2023-03-30 16:40:00 118.842 kg [facility] BMI 2023-03-30 16:40:00 38.69 kg/m2 [facility] Oxygen saturation in Arterial blood by Pulse oximetry 2023-03-30 16:40:00 99 /min [facility] Systolic blood pressure 2023-03-26 18:33:00 113 mm[Hg] [facility] Diastolic blood pressure 2023-03-26 18:33:00 77 mm[Hg] [facility] Heart rate 2023-03-26 18:33:00 74 /min [facility] Body height 2023-03-26 18:33:00 175.3 cm [facility] Body weight 2023-03-26 18:33:00 118.842 kg [facility] BMI 2023-03-26 18:33:00 38.69 kg/m2 Univ ersity [facility] Oxygen saturation in Arterial blood by Pulse oximetry 2023-03-26 18:33:00 96 /min [facility] Systolic blood pressure 2023-03-24 15:26:00 130 mm[Hg] [facility] Diastolic blood pressure 2023-03-24 15:26:00 84 mm[Hg] [facility] Heart rate 2023-03-24 15:26:00 67 /min [facility] Respiratory rate 2023-03-24 15:26:00 18 /min [facility] Body height 2023-03-24 15:26:00 175.3 cm [facility] Body weight 2023-03-24 15:26:00 118.752 kg [facility] BMI 2023-03-24 15:26:00 38.66 kg/m2 [facility] Oxygen saturation in Arterial blood by Pulse oximetry 2023-03-24 15:26:00 97 /min [facility] Systolic blood pressure 2023-03-19 13:56:41 115 mm[Hg] [facility] Diastolic blood pressure 2023-03-19 13:56:41 74 mm[Hg] [facility] Heart rate 2023-03-19 12:58:00 64 /min Unive [facility] Body temperature 2023-03-19 12:58:00 36.39 Dariana [facility] Respiratory rate 2023-03-19 12:58:00 20 /min [facility] Oxygen saturation in Arterial blood by Pulse oximetry 2023-03-19 12:58:00 100 /min [facility] Systolic blood pressure 2023-02-22 01:51:00 143 mm[Hg] [facility] Diastolic blood pressure 2023-02-22 01:51:00 76 mm[Hg] [facility] Heart rate 2023-02-22 01:49:00 80 /min Unive [facility] Body temperature 2023-02-22 01:49:00 37.22 Dariana [facility] Respiratory rate 2023-02-22 01:49:00 12 /min [facility] Body height 2023-02-22 01:49:00 175.3 cm Univ [facility] Body weight 2023-02-22 01:49:00 122.018 kg [facility] BMI 2023-02-22 01:49:00 39.72 kg/m2 [facility] Oxygen saturation in Arterial blood by Pulse oximetry 2023-02-22 01:49:00 96 /min [facility] Systolic blood pressure 2023-02-16 18:57:00 128 mm[Hg] [facility] Diastolic blood pressure 2023-02-16 18:57:00 80 mm[Hg] [facility] Heart rate 2023-02-16 18:57:00 87 /min Unive [facility] Respiratory rate 2023-02-16 18:57:00 18 /min [facility] Body height 2023-02-16 18:57:00 175.3 cm Univ [facility] Body weight 2023-02-16 18:57:00 121.882 kg [facility] BMI 2023-02-16 18:57:00 39.68 kg/m2 [facility] Oxygen saturation in Arterial blood by Pulse oximetry 2023-02-16 18:57:00 95 /min [facility] Systolic blood pressure 2022-12-15 18:24:00 124 mm[Hg] [facility] Diastolic blood pressure 2022-12-15 18:24:00 79 mm[Hg] [facility] Heart rate 2022-12-15 18:24:00 74 /min Unive [facility] Body temperature 2022-12-15 18:24:00 36.72 Dariana [facility] Body height 2022-12-15 18:24:00 175.3 cm [facility] Body weight 2022-12-15 18:24:00 121.564 kg [facility] BMI 2022-12-15 18:24:00 39.58 kg/m2 [facility] Oxygen saturation in Arterial blood by Pulse oximetry 2022-12-15 18:24:00 97 /min [facility] Systolic blood pressure 2022-12-09 14:52:00 125 mm[Hg] [facility] Diastolic blood pressure 2022-12-09 14:52:00 80 mm[Hg] [facility] Heart rate 2022-12-09 14:52:00 63 /min Unive [facility] Respiratory rate 2022-12-09 14:52:00 12 /min [facility] Body height 2022-12-09 14:52:00 175.3 cm Univ [facility] Body weight 2022-12-09 14:52:00 121.564 kg [facility] BMI 2022-12-09 14:52:00 39.58 kg/m2 [facility] Oxygen saturation in Arterial blood by Pulse oximetry 2022-12-09 14:52:00 97 /min [facility] Systolic blood pressure 2022-11-13 19:39:00 129 mm[Hg] [facility] Diastolic blood pressure 2022-11-13 19:39:00 87 mm[Hg] [facility] Heart rate 2022-11-13 19:39:00 79 /min Unive [facility] Body height 2022-11-13 19:33:00 175.3 cm Univ [facility] Body weight 2022-11-13 19:33:00 121.564 kg Univ [facility] BMI 2022-11-13 19:33:00 39.58 kg/m2 Univ [facility] Oxygen saturation in Arterial blood by Pulse oximetry 2022-11-13 19:33:00 95 /min [facility] Systolic blood pressure 2022-11-04 18:21:00 122 mm[Hg] [facility] Diastolic blood pressure 2022-11-04 18:21:00 85 mm[Hg] [facility] Heart rate 2022-11-04 18:21:00 67 /min Unive [facility] Body temperature 2022-11-04 18:21:00 36.94 Dariana [facility] Respiratory rate 2022-11-04 18:21:00 17 /min [facility] Body height 2022-11-04 18:21:00 175.3 cm Univ [facility] Body weight 2022-11-04 18:21:00 121.246 kg [facility] BMI 2022-11-04 18:21:00 39.47 kg/m2 [facility] Oxygen saturation in Arterial blood by Pulse oximetry 2022-11-04 18:21:00 96 /min [facility] Systolic blood pressure 2022-10-16 19:26:00 116 mm[Hg] [facility] Diastolic blood pressure 2022-10-16 19:26:00 78 mm[Hg] [facility] Heart rate 2022-10-16 19:26:00 85 /min Unive [facility] Body temperature 2022-10-16 19:26:00 36.61 Dariana [facility] Body height 2022-10-16 19:26:00 175.3 cm Univ [facility] Body weight 2022-10-16 19:26:00 122.925 kg [facility] BMI 2022-10-16 19:26:00 40.02 kg/m2 [facility] Oxygen saturation in Arterial blood by Pulse oximetry 2022-10-16 19:26:00 96 /min [facility] Systolic blood pressure 2022-09-09 20:33:00 115 mm[Hg] [facility] Diastolic blood pressure 2022-09-09 20:33:00 61 mm[Hg] [facility] Heart rate 2022-09-09 20:33:00 90 /min Unive [facility] Body weight 2022-09-09 20:33:00 123.469 kg Univ [facility] BMI 2022-09-09 20:33:00 40.20 kg/m2 [facility] Oxygen saturation in Arterial blood by Pulse oximetry 2022-09-09 20:33:00 97 /min [facility] Systolic blood pressure 2022-09-09 16:13:00 112 mm[Hg] [facility] Diastolic blood pressure 2022-09-09 16:13:00 71 mm[Hg] [facility] Heart rate 2022-09-09 16:13:00 76 /min Unive [facility] Respiratory rate 2022-09-09 16:13:00 12 /min [facility] Body height 2022-09-09 16:13:00 175.3 cm Univ [facility] Body weight 2022-09-09 16:13:00 125.193 kg [facility] BMI 2022-09-09 16:13:00 40.76 kg/m2 [facility] Oxygen saturation in Arterial blood by Pulse oximetry 2022-09-09 16:13:00 98 /min [facility] Systolic blood pressure 2022-08-17 17:21:00 124 mm[Hg] [facility] Diastolic blood pressure 2022-08-17 17:21:00 82 mm[Hg] [facility] Heart rate 2022-08-17 17:21:00 76 /min Unive [facility] Body temperature 2022-08-17 17:21:00 36.67 Dariana [facility] Body height 2022-08-17 17:21:00 175.3 cm [facility] 2022-08-17 17:21:00 125.193 kg [facility] BMI 2022-08-17 17:21:00 40.76 kg/m2 [facility] Oxygen saturation in Arterial blood by Pulse oximetry 2022-08-17 17:21:00 96 /min [facility] Systolic blood pressure 2022-08-14 16:00:00 136 mm[Hg] [facility] Diastolic blood pressure 2022-08-14 16:00:00 84 mm[Hg] [facility] Heart rate 2022-08-14 16:00:00 72 /min [facility] Res[facility] 2022-08-14 16:00:00 16 /min [facility] Body temperature 2022-08-14 14:17:00 36.72 Dariana [facility] Body height 2022-08-14 14:17:00 175.3 cm [facility] Body weight 2022-08-14 14:17:00 122.471 kg Univ [facility] BMI 2022-08-14 14:17:00 39.87 kg/m2 [facility] Oxygen saturation in Arterial blood by Pulse oximetry 2022-08-14 14:17:00 99 /min [facility] Systolic blood pressure 2022-08-12 21:06:00 121 mm[Hg] [facility] Diastolic blood pressure 2022-08-12 21:06:00 75 mm[Hg] [facility] Heart rate 2022-08-12 21:06:00 74 /min [facility] Res[facility] rate 2022-08-12 21:06:00 12 /min [facility] Body height 2022-08-12 21:06:00 175.3 cm [facility] Body weight 2022-08-12 21:06:00 123.378 kg [facility] BMI 2022-08-12 21:06:00 40.17 kg/m2 [facility] Oxygen saturation in Arterial blood by Pulse oximetry 2022-08-12 21:06:00 98 /min [facility] Systolic blood pressure 2022-07-15 21:37:00 132 mm[Hg] [facility] Diastolic blood pressure 2022-07-15 21:37:00 85 mm[Hg] [facility] Heart rate 2022-07-15 21:32:00 90 /min Unive [facility] Body height 2022-07-15 21:32:00 175.3 cm [facility] Body weight 2022-07-15 21:32:00 123.152 kg [facility] BMI 2022-07-15 21:32:00 40.09 kg/m2 [facility] Oxygen saturation in Arterial blood by Pulse oximetry 2022-07-15 21:32:00 96 /min [facility] Body height 2022-07-06 16:04:00 175.3 cm [facility] Body weight 2022-07-06 16:04:00 122.471 kg [facility] BMI 2022-07-06 16:04:00 39.87 kg/m2 [facility] Systolic blood pressure 2022-06-15 14:24:00 117 mm[Hg] [facility] Diastolic blood pressure 2022-06-15 14:24:00 77 mm[Hg] [facility] Heart rate 2022-06-15 14:24:00 69 [facility]min [facility] Body height 2022-06-15 14:24:00 175.3 cm [facility] Body weight 2022-06-15 14:24:00 123.378 kg [facility] BMI 2022-06-15 14:24:00 40.17 kg/m2 [facility] Oxygen saturation in Arterial blood by Pulse oximetry 2022-06-15 14:24:00 96 /min [facility] Systolic blood pressure 2022-05-15 15:30:00 111 mm[Hg] [facility] Diastolic blood pressure 2022-05-15 15:30:00 74 mm[Hg] [facility] Heart rate 2022-05-15 15:30:00 82 /min Unive [facility] Body height 2022-05-15 15:30:00 175.3 cm Univ [facility] Body weight 2022-05-15 15:30:00 120.657 kg Univ [facility] BMI 2022-05-15 15:30:00 39.28 kg/m2 [facility] Oxygen saturation in Arterial blood by Pulse oximetry 2022-05-15 15:30:00 97 /min [facility] Systolic blood pressure 2022-04-15 18:30:00 124 mm[Hg] [facility] Diastolic blood pressure 2022-04-15 18:30:00 84 mm[Hg] [facility] Heart rate 2022-04-15 18:30:00 78 /min Unive [facility] Body temperature 2022-04-15 18:30:00 36.56 Dariana [facility] Body height 2022-04-15 18:30:00 175.3 cm [facility] Body weight 2022-04-15 18:30:00 120.203 kg [facility] BMI 2022-04-15 18:30:00 39.13 kg/m2 [facility] Oxygen saturation in Arterial blood by Pulse oximetry 2022-04-15 18:30:00 96 /min [facility] Systolic blood pressure 2022-03-31 18:19:00 132 mm[Hg] [facility] Diastolic blood pressure 2022-03-31 18:19:00 86 mm[Hg] [facility] Heart rate 2022-03-31 18:19:00 76 /min Unive [facility] Body height 2022-03-31 18:19:00 175.3 cm [facility] Body weight 2022-03-31 18:19:00 120.974 kg [facility] BMI 2022-03-31 18:19:00 39.38 kg/m2 [facility] Oxygen saturation in Arterial blood by Pulse oximetry 2022-03-31 18:19:00 98 /min [facility] Procedures Procedure Date / Time Performed Performing Clinician Source XR ANKLE 3+ VW RIGHT 2025-01-01 16:24:00 Remy Harp [facility] ABDOMEN LIMITED 2024-10-31 14:32:38 [facility] 2024-10-25 13:51:00 Remy Harp [facility] FLU VACC ([id number]), 6 MO-64 YRS, .5ML, IM, TIV (FLUCELVAX) 2024-03-24 19:53:17 Remy Harp [facility] MR LUMBAR SPINE WO CONTRAST 2024-02-01 16:32:50 Remy Harp [facility] POCT MOLECULAR STREP 2024-01-19 15:25:00 Suzan, Leticia martin [facility] POCT SARS-COV-2 ANTIGEN (BINAX NOW) 2024-01-19 14:58:00 Noel Pruitt [facility] ABDOMEN LIMITED 2023-06-23 19:20:00 [facility] TRANST[facility]ORACIC ECHO (TTE) COMPLETE W/ CONTRAST 2023-06-07 21:43:25 Chau [facility] CT ANGIOGRAPHY CORONARIES WITH CARDIAC CALCIUM SCORE 2023-05-26 16:25:11 Chau [facility] HB CREATININE SERUM/BLOOD FOR IMAGING 2023-05-26 15:39:00 Chau [facility] ASSIGNMENT OF BENEFITS 2023-05-24 13:49:52 Docto r Unassigned, [place] [facility] FLU VACC ([id number]), 6 MO-64 YRS, .5ML, IM, QUAD (FLUCELVAX) 2023-05-10 18:20:42 Chau [facility] ASSIGNMENT OF BENEFITS 2023-03-19 14:11:57 Docto r Unassigned, [place] [facility] XR CHEST 2 VW 2023-03-19 13:45:21 Sharif Sultana [facility] LIPASE 2023-03-19 13:32:00 Sharif [facility] TROPONIN I 2023-03-19 13:32:00 Zeb [facility] HE[facility] FUN[facility] ([id number]) (ALB,T.PRO,BILI T,BU/BC,ALT,AST,ALK PHOS) 2023-03-19 13:32:00 Sharif Sultana [facility] BASIC METABOLIC PANEL (NA, K, CL, CO2, GLUCOSE, BUN, CREATININE, CA) 2023-03-19 13:32:00 Sharif Sultana [facility] CBC WITH DIFF 2023-03-19 13:32:00 [facility] N-TERMINAL PRO-BNP 2023-03-19 13:32:00 [facility] COVID-19 (ID NOW RAPID TESTING) 2023-03-19 13:32:00 [facility] CONSENT/REFUSAL FOR DIAGNOSIS AND TREATMENT 2023-03-19 12:52:52 Doctor Unassigned, [place] [facility] POCT SARS-COV-2 ANTIGEN (BINAX NOW) 2023-02-22 01:56:00 Enid Mcfarland [facility] POCT MOLECULAR FLU 2023-02-22 01:53:00 Unknown, Attend [facility] POCT MOLECULAR STREP 2023-02-22 01:51:00 Unknown, Atte mario [facility] SLEEP STUDY DATA REPORT 2022-11-19 05:01:00 Doct or Unassigned, [place] [facility] PATIENT FINANCIAL POLICY 2022-10-16 19:17:12 Doctor Unassigned, [place] [facility] FL TIME OR (NON-REPORTABLE) 2022-08-14 15:46:17 Britton Yanez [facility] ASSIGNMENT OF BENEFITS 2022-05-21 14:24:22 Docto r Unassigned, [place] [facility] FLU VACC ([id number]), 6 MO-64 YRS, .5ML, IM, QUAD (FLUCELVAX) 2022-04-15 18:48:46 Remy Harp [facility] Encounters Start Date/Time End Date/Time Encounter Type Admission Type Attending [facility] Facility Care Department Encounter ID Source 2021-05-20 09:37:11 Emergency [facility] [id number] [facility] 2025-04-25 00:00:00 2025-04-25 15:59:09 Telephone Katiuska Remy [facility] 1.2.840.114 350.1.13.10 4.2.7.2.686 [id number] [facility] 2025-02-06 00:00:00 2025-02-06 17:54:23 Letter (Out) [facility] ([facility] 1.2840.114 350.1.13.10 4.2.7.2.686 [id number] [facility] 2025-01-02 00:00:00 2025-01-02 09:54:55 Patient Secure Msg Doctor Unassigned, [place] Doctor Unassigned, [place] [facility] 1.2840.114 350.1.13.10 4.2.7.2.686 [id number] [facility] 2025-01-01 10:59:21 2025-01-01 23:59:00 Hospital Encounter R Remy Harp [facility] 1.2.840.114 350.1.13.10 4.2.7.2.686 [id number] [facility] 2025-01-01 10:00:00 2025-01-01 10:31:10 Office Visit R KATIUSKA REMY [facility] 1.284.114 350.1.13.10 4.2.7.2.686 [id number] [facility] 2024-11-08 00:00:00 2024-12-09 18:16:09 Patient Secure Msg Katiuska Remy [facility] 1.2.840.114 350.1.13.10 4.2.7.2.686 [id number] [facility] 2024-11-08 00:00:00 2024-12-09 18:14:42 Patient Secure Msg Doctor Unassigned, [place] Doctor Unassigned, [place] [facility] 1.2.840.114 350.1.13.10 4.2.7.2.686 [id number] [facility] 2024-10-26 00:00:00 2024-12-02 18:25:02 Patient Secure Msg Doctor Unassigned, [place] Doctor Unassigned, [place] [facility] 1.2.840.114 350.1.13.10 4.2.7.2.686 [id number] [facility] 2024-10-26 00:00:00 2024-12-02 18:24:45 Patient Secure Msg Doctor Unassigned, [place] Doctor Unassigned, [place] [facility] 1.2.840.114 350.1.13.10 4.2.7.2.686 [id number] [facility] 2024-11-01 00:00:00 2024-12-02 18:17:28 Patient Secure Msg RolyRemy gottlieb [facility] 1.2.840.114 350.1.13.10 4.2.7.2.686 [id number] [facility] 2024-10-31 08:52:39 2024-10-31 23:59:00 Outpatient R REYM HARP [facility] [id number] [facility] 2024-10-31 08:52:39 2024-10-31 23:59:00 Hospital Encounter Remy Harp [facility] 1.840.114 350.1.13.10 4.2.7.2.686 [id number] [facility] 2024-10-25 08:45:00 2024-10-25 09:00:00 Attic Fans Mechanic Visit Lab, Ang - Db Remy Harp Lab, Ang - [facility] 1..840.114 350.1.13.10 4.2.7.2.686 [id number] [facility] 2024-10-25 08:00:00 2024-10-25 08:42:23 Outpatient R REMY HARP [facility] [id number] [facility] 2024-10-25 08:00:00 2024-10-25 08:42:23 Office Visit Remy Harp [facility] 1..840.114 350.1.13.10 4.2.7.2.686 [id number] [facility] 2024-09-20 09:30:00 2024-09-20 09:30:00 Outpatient R REMY HARP [facility] [id number] [facility] 2024-09-07 08:00:00 2024-09-07 08:00:00 Outpatient R BRITTON YANEZ [facility] [id number] [facility] 2017-01-28 00:00:00 2024-09-02 03:43:55 Orders Only Doctor Unassigned, [place] Doctor Unassigned, [place] [facility] ([facility]) 1..840.114 350.1.13.10 4.2.7.2.686 [id number] [facility] 2024-08-14 16:00:00 2024-08-14 16:26:37 Outpatient R REMY HARP [facility] [id number] [facility] 2024-08-14 16:00:00 2024-08-14 16:26:37 Office Visit KatiuskaRemy [facility] 1.20.114 350.1.13.10 4.2.7.2.686 [id number] [facility] 2024-08-10 14:30:00 2024-08-10 15:15:00 Ancillary Visit Lakeshia Covarrubias Craig L Johanson, [facility] 1.2840.114 350.1.13.10 4.2.7.2.686 [id number] [facility] 2024-08-10 14:30:00 2024-08-10 14:30:00 Outpatient R LARISA RICHARDS CRAIG [facility] [id number] [facility] 2024-08-10 08:15:00 2024-08-10 08:15:00 Outpatient BRITTON MERCHANT [facility] [id number] [facility] 2024-08-06 00:00:00 2024-08-07 11:50:17 Telephone Valeria Philippe [facility] 1.284.114 350.1.13.10 4.2.7.2.686 [id number] [facility] 2024-08-03 14:30:00 2024-08-03 16:13:53 Ancillary Visit Lakeshia Covarrubias Craig L Johanson, [facility] BU[facility] 1.284.114 350.1.13.10 4.2.7.2.686 [id number] [facility] 2024-08-02 00:00:00 2024-08-02 11:31:19 Telephone KatiuskaRemy [facility] 1.2.114 350.1.13.10 4.2.7.2.686 [id number] [facility] 2024-07-27 14:00:00 2024-07-27 14:21:28 Outpatient R AMANDA PHILIPPELIE [facility] [id number] [facility] 2024-07-27 14:00:00 2024-07-27 14:21:28 Office Visit Amanda Philippemilton Gottlieb [facility] 1..840.114 350.1.13.10 4.2.7.2.686 [id number] [facility] [facility] 2024-07-06 13:30:00 2024-07-06 13:30:00 Outpatient R BRITTON YANEZ [facility] [id number] [facility] 2024-06-23 10:15:00 2024-06-23 10:15:00 Outpatient R LARISA RICHARDS CRAIG [facility] [id number] [facility] 2024-06-23 09:00:00 2024-06-23 09:16:49 Outpatient REMY ALONZO [facility] [id number] [facility] 2024-06-08 14:30:00 2024-06-08 15:15:00 Ancillary Visit Kaykay Merrill Craig L Brown, Melissa K [facility] 1..840.114 350.1.13.10 4.2.7.2.686 [id number] [facility] 2024-06-08 14:30:00 2024-06-08 14:30:00 Outpatient R LARISA RICHARDS CRAIG [facility] [id number] [facility] 2024-06-02 00:00:00 2024-06-02 14:30:01 [facility] 1..840.114 350.1.13.10 4.2.7.2.686 [id number] 044 [id number] [facility] 2024-06-01 13:00:00 2024-06-01 13:45:00 Ancillary Visit Kaykay Merrill Craig L [facility] 1.2.840.114 350.1.13.10 4.2.7.2.686 [id number] [facility] 2024-05-31 13:30:00 2024-05-31 13:58:29 Outpatient R REMY HARP [facility] [id number] [facility] 2024-05-31 13:30:00 2024-05-31 13:58:29 Office Visit Remy Harp [facility] 1.2.840.114 350.1.13.10 4.2.7.2.686 [id number] 044 [id number] [facility] 2024-05-25 15:15:00 2024-05-25 16:00:00 Ancillary Visit Kaykay Merrill Craig L BrownKaykay [facility] 1.2.840.114 350.1.13.10 4.2.7.2.686 [id number] [facility] 2024-05-19 08:45:00 2024-05-19 09:46:49 Ancillary Visit Lakeshia Covarrubias Craig L Johanson, Dara [facility] 1.2.840.114 350.1.13.10 4.2.7.2.686 [id number] [facility] 2024-05-12 08:45:00 2024-05-12 09:51:02 Outpatient R LARISA RICHARDS CRAIG [facility] [id number] [facility] 2024-05-12 08:45:00 2024-05-12 09:51:02 Ancillary Visit Kaykay Merrill Craig L Brown, Melissa K [facility] 1.2.840.114 350.1.13.10 4.2.7.2.686 [id number] 179 [id number] [facility] 2024-05-05 16:00:00 2024-05-05 16:00:00 Outpatient R DARI ALAINA [facility] [id number] [facility] 2024-05-05 08:45:00 2024-05-05 09:27:54 Ancillary Visit Lakeshia Covarrubias Craig L Johanson, Dara [facility] 1.2.840.114 350.1.13.10 4.2.7.2.686 [id number] [facility] 2024-04-26 13:30:00 2024-04-26 13:57:01 Outpatient R REMY HARP [facility] [id number] [facility] 2024-04-26 13:30:00 2024-04-26 13:57:01 Office Visit Rolybull Rem[facility] 1.2.840.114 350.1.13.10 4.2.7.2.686 [id number] 044 [id number] [facility] 2024-04-04 14:12:34 2024-04-04 23:59:00 Outpatient R ELISA CHAPINSSICA [facility] [id number] [facility] 2024-04-04 14:12:34 2024-04-04 23:59:00 [facility] 1.2.840.114 350.1.13.10 4.2.7.2.686 [id number] [facility] 2024-04-04 13:30:00 2024-04-04 14:13:57 Office Visit Alaina Chapin [facility] 1.2.840.114 350.1.13.10 4.2.7.2.686 [id number] 092 [id number] [facility] 2024-04-03 14:30:00 2024-04-03 15:10:21 Outpatient R KATIUSKA REMY [facility] [id number] [facility] 2024-04-03 14:30:00 2024-04-03 15:10:21 Office Visit KatiuskaRemy [facility] 1.2.840.114 350.1.13.10 4.2.7.2.686 [id number] 044 [id number] [facility] 2024-04-02 00:00:00 2024-04-03 13:12:16 Refill KatiuskaRemy [facility] 1.2.840.114 350.1.13.10 4.2.7.2.686 [id number] 044 [id number] [facility] 2024-03-28 00:00:00 2024-03-28 11:25:41 Letter (Out) [facility] 1.2.840.114 350.1.13.10 4.2.7.2.686 [id number] 019 [id number] [facility] 2024-03-27 00:00:00 2024-03-27 12:26:40 Letter (Out) [facility] 1.2.840.114 350.1.13.10 4.2.7.2.686 [id number] [id number] [facility] 2024-03-24 14:30:00 2024-03-24 15:03:53 Outpatient R REMY HARP [facility] [id number] [facility] 2024-03-24 14:30:00 2024-03-24 15:03:53 Office Visit Remy Harp [facility] 1.2.840.114 350.1.13.10 4.2.7.2.686 [id number] 044 [id number] [facility] 2024-03-16 14:30:00 2024-03-16 16:10:31 Outpatient R LARISA RICHARDS CRAIG [facility] [id number] [facility] 2024-03-16 14:30:00 2024-03-16 16:10:31 Ancillary Visit Kaykay Merrill Craig L Brown Kaykay K [facility] 1.2.840.114 350.1.13.10 4.2.7.2.686 [id number] [facility] 2024-03-14 00:00:00 2024-03-14 13:25:51 Telephone Remy Harp [facility] 1.2.840.114 350.1.13.10 4.2.7.2.686 [id number] 044 [id number] [facility] 2024-03-09 14:30:00 2024-03-09 15:34:56 Ancillary Visit Kaykay Merrill Craig L Brown Kaykay Brian [facility] 1..840.114 350.1.13.10 4.2.7.2.686 [id number] 179 [id number] [facility] 2024-03-02 14:30:00 2024-03-02 15:15:20 Ancillary Visit Renny Merrill Craig L Brown, Robert F [facility] 1.2.840.114 350.1.13.10 4.2.7.2.686 [id number] 179 [id number] [facility] 2024-03-02 13:45:00 2024-03-02 14:00:00 Attic Fans Mechanic Visit Lab, Ang - Db Unknown, Attending Lab, Ang - Db [facility] 1.2.840.114 350.1.13.10 4.2.7.2.686 [id number] [facility] 2024-03-02 13:45:00 2024-03-02 13:47:52 Outpatient R REMY HARP [facility] [id number] [facility] 2024-02-29 11:00:00 2024-02-29 11:00:00 Outpatient R REMY HARP [facility] [id number] [facility] 2024-01-23 00:00:00 2024-02-26 18:22:20 Patient Secure Msg Doctor Unassigned, [place] Doctor Unassigned, [place] [facility] 1.2.840.114 350.1.13.10 4.2.7.2.686 [id number] 044 [id number] [facility] 2024-02-22 15:30:00 2024-02-22 15:44:52 Outpatient R REMY HARP [facility] [id number] [facility] 2024-02-22 15:30:00 2024-02-22 15:44:52 Office Visit Remy Harp [facility] 1.2.840.114 350.1.13.10 4.2.7.2.686 [id number] 044 [id number] [facility] 2024-02-18 13:00:00 2024-02-18 13:00:00 Outpatient R JACKIE MCKEON RUTH [facility] [id number] [facility] 2024-02-17 10:00:00 2024-02-17 13:34:59 Outpatient R KAI DAVIDSON [facility] [id number] [facility] 2024-02-17 10:00:00 2024-02-17 13:34:59 Office Visit Kai Davidson [facility] 1.2.840.114 350.1.13.10 4.2.7.2.686 [id number] [facility] 2024-02-12 00:00:00 2024-02-14 16:09:29 Telephone Remy Harp [facility] 1.2.840.114 350.1.13.10 4.2.7.2.686 [id number] 044 [id number] [facility] 2024-01-06 00:00:00 2024-02-12 18:25:53 Patient Secure Msg Doctor Unassigned, [place] [facility] 1.2.840.114 350.1.13.10 4.2.7.2.686 [id number] [facility] 2024-02-09 10:15:00 2024-02-09 11:19:46 Outpatient LARISA DIAZ CRAIG [facility] [id number] [facility] 2024-02-09 10:15:00 2024-02-09 11:19:46 Ancillary Visit Renny Merrill Craig L [facility] 1.2.840.114 350.1.13.10 4.2.7.2.686 [id number] 179 [id number] [facility] 2024-02-02 10:15:00 2024-02-02 10:54:27 Ancillary Visit Kaykay Merrill Craig L [facility] 1.2.840.114 350.1.13.10 4.2.7.2.686 [id number] 179 [id number] [facility] 2024-02-01 10:32:23 2024-02-01 23:59:00 Outpatient R REMY HARP [facility] [id number] [facility] 2024-02-01 10:32:23 2024-02-01 23:59:00 Hospital Encounter Remy Harp [facility] 1.840.114 350.1.13.10 4.2.7.2.686 [id number] [facility] 2024-01-31 14:30:00 2024-01-31 14:52:50 Outpatient R REMY HARP [facility] [id number] [facility] 2024-01-31 14:30:00 2024-01-31 14:52:50 Office Visit Remy Harp [facility] 1.840.114 350.1.13.10 4.2.7.2.686 [id number] 044 [id number] [facility] 2024-01-28 13:30:00 2024-01-28 13:30:00 Outpatient R REMY HARP [facility] [id number] [facility] 2024-01-26 15:00:00 2024-01-26 15:18:17 Outpatient R REMY HARP [facility] [id number] [facility] 2024-01-26 15:00:00 2024-01-26 15:18:17 Office Visit Remy Harp [facility] 1..840.114 350.1.13.10 4.2.7.2.686 [id number] 044 [id number] [facility] 2024-01-24 15:00:00 2024-01-24 15:00:00 Outpatient R REMY HARP [facility] [id number] [facility] 2024-01-20 00:00:00 2024-01-21 08:00:21 Refill Remy Harp [facility] 1..840.114 350.1.13.10 4.2.7.2.686 [id number] 044 [id number] [facility] 2024-01-19 09:40:00 2024-01-19 10:40:58 Outpatient R AURELIO MCDONALD [facility] [id number] [facility] 2024-01-19 09:40:00 2024-01-19 10:40:58 Urgent Care Aurelio Mcdonald Unknown, Attending [facility] 1.2.840.114 350.1.13.10 4.2.7.2.686 [id number] [facility] 2024-01-14 00:00:00 2024-01-14 00:00:00 Outpatient R REMY HARP [facility] [id number] [facility] 2024-01-10 13:45:00 2024-01-10 14:30:00 Ancillary Visit Renny Merrill Craig L [facility] 1..840.114 350.1.13.10 4.2.7.2.686 [id number] 179 [id number] [facility] 2024-01-06 00:00:00 2024-01-06 07:59:14 Telephone RolyEugenia gottliebie [facility] 1.2.840.114 350.1.13.10 4.2.7.2.686 [id number] 044 [id number] [facility] 2024-01-06 07:00:00 2024-01-06 07:31:53 Outpatient R VALERIA PHILIPPE [facility] [id number] [facility] 2024-01-06 07:00:00 2024-01-06 07:31:53 Office Visit Valeria Philippe [facility] 1.2.840.114 350.1.13.10 4.2.7.2.686 [id number] 044 [id number] [facility] 2023-12-01 00:00:00 2024-01-01 18:17:45 Patient Secure Msg Doctor Unassigned, [place] [facility] 1.284.114 350.1.13.10 4.2.7.2.686 [id number] 037 [id number] [facility] 2023-12-29 00:00:00 2023-12-31 10:51:15 Patient Secure Msg Remy Harp [facility] 1.284.114 350.1.13.10 4.2.7.2.686 [id number] 044 [id number] [facility] 2023-12-29 00:00:00 2023-12-30 09:42:06 Telephone Remy Harp [facility] 1.84.114 350.1.13.10 4.2.7.2.686 [id number] 044 [id number] [facility] 2023-12-30 08:45:00 2023-12-30 09:30:00 Ancillary Visit Renny Merrill Craig L [facility] 1..840.114 350.1.13.10 4.2.7.2.686 [id number] [facility] 2023-12-23 00:00:00 2023-12-24 07:49:47 Refill Remy Harp [facility] 1.2840.114 350.1.13.10 4.2.7.2.686 [id number] 044 [id number] [facility] 2023-12-23 08:45:00 2023-12-23 11:32:17 Outpatient R LARISA RICHARDS CRAIG [facility] [id number] [facility] 2023-12-23 08:45:00 2023-12-23 09:30:00 Ancillary Visit Renny Merrill Craig L [facility] 1.2.840.114 350.1.13.10 4.2.7.2.686 [id number] [facility] 2023-12-22 00:00:00 2023-12-22 00:00:00 Outpatient R REMY HARP [facility] [id number] [facility] 2023-12-17 10:30:00 2023-12-17 10:54:59 Outpatient R REMY HARP [facility] [id number] [facility] 2023-12-17 10:30:00 2023-12-17 10:54:59 Office Visit Remy Harp [facility] 1.2.840.114 350.1.13.10 4.2.7.2.686 [id number] 044 [id number] [facility] 2023-12-16 14:30:00 2023-12-16 15:15:00 Ancillary Visit Renny Merrill Craig L [facility] 1.2.840.114 350.1.13.10 4.2.7.2.686 [id number] [facility] 2023-12-03 12:00:00 2023-12-03 13:00:00 Ancillary Visit Lakeshia Covarrubias Craig L [facility] 1.2.840.114 350.1.13.10 4.2.7.2.686 [id number] [facility] 2023-12-03 12:00:00 2023-12-03 12:00:00 Outpatient R LARISA RICHARDS CRAIG [facility] [id number] [facility] 2023-11-16 13:30:00 2023-11-16 14:01:56 Outpatient R REMY HRAP [facility] [id number] [facility] 2023-11-16 13:30:00 2023-11-16 14:01:56 [facility] Visit [facility] 1.114 350.1.13.10 4.2.7.2.686 [id number] 044 [id number] [facility] 2023-11-09 13:40:00 2023-11-09 14:00:00 Urgent Care Noel Pruitt Unknown, Attending [facility] 1..114 350.1.13.10 4.2.7.2.686 [id number] [facility] 2023-11-09 13:40:00 2023-11-09 13:40:00 Outpatient R MADAI BOOLUZ MARINA [facility] [id number] [facility] 2023-08-03 10:00:00 2023-08-03 10:00:00 Outpatient R [facility] [id number] [facility] 2023-07-08 00:00:00 2023-07-08 00:00:00 Telephone [facility] 1.114 350.1.13.10 4.2.7.2.686 [id number] [facility] 2023-06-23 12:46:42 2023-06-23 23:59:00 Outpatient R KATIUSKAEUGENIAIE [facility] [id number] [facility] 2023-06-23 12:46:42 2023-06-23 23:59:00 Hospital Encounter RolyRemy gottlieb [facility] 1.114 350.1.13.10 4.2.7.2.686 [id number] [facility] 2023-06-23 00:00:00 2023-06-23 00:00:00 Telephone RolyRemy gottlieb [facility] 1.84.114 350.1.13.10 4.2.7.2.686 [id number] 044 [id number] [facility] 2023-06-23 00:00:00 2023-06-23 00:00:00 Patient Secure Msg Doctor Unassigned, [place] [facility] 1.2.840.114 350.1.13.10 4.2.7.2.686 [id number] [id number] [facility] 2023-06-21 00:00:00 2023-06-21 00:00:00 Refill Remy Harp [facility] 1.2.840.114 350.1.13.10 4.2.7.2.686 [id number] 044 [id number] [facility] 2023-06-08 00:00:00 2023-06-08 00:00:00 Patient Secure Msg Chau [facility] BUILDING 1.2.840.114 350.1.13.10 4.2.7.2.686 [id number] [facility] 2023-06-07 14:48:39 2023-06-07 23:59:00 [facility] [id number] 2023-06-07 14:48:39 2023-06-07 23:59:00 Hospital Encounter Chau [facility] BUILDING 1.2.840.114 350.1.13.10 4.2.7.2.686 [id number] [facility] 2023-05-27 00:00:00 2023-05-27 00:00:00 Patient Secure Msg Chau [facility] BUILDING 1.2.840.114 350.1.13.10 4.2.7.2.686 [id number] [id number] [facility] 2023-05-26 09:07:34 2023-05-26 23:59:00 Outpatient R ELISE RITCIHE [facility] [id number] [facility] 2023-05-26 09:07:34 2023-05-26 23:59:00 Hospital Encounter Elise Ritchie [facility] 1.2840.114 350.1.13.10 4.2.7.2.686 [id number] [facility] 2023-05-25 00:00:00 2023-05-25 00:00:00 Telephone RolyRemy gottlieb [facility] 1.84.114 350.1.13.10 4.2.7.2.686 [id number] 044 [id number] [facility] 2023-05-25 00:00:00 2023-05-25 00:00:00 Patient Secure Msg Doctor Unassigned, [place] [facility] 1.284.114 350.1.13.10 4.2.7.2.686 [id number] 044 [id number] [facility] 2023-05-24 08:30:00 2023-05-24 08:45:00 Attic Fans Mechanic Visit Lab, Ros[place] - Crow DunhamRemy gottlieb [facility] 1.840.114 350.1.13.10 4.2.7.2.686 [id number] [facility] 2023-05-24 08:30:00 2023-05-24 08:30:00 Outpatient R ROLYREMY Gottlieb [facility] [id number] [facility] 2023-05-24 08:00:00 2023-05-24 08:20:31 Office Visit Remy Harp [facility] 1.2840.114 350.1.13.10 4.2.7.2.686 [id number] 044 [id number] [facility] 2023-05-24 00:00:00 2023-05-24 00:00:00 Orders Only Doctor Unassigned, [place] [facility] 1.2.840.114 350.1.13.10 4.2.7.2.686 [id number] [facility] 2023-05-17 16:00:00 2023-05-17 16:00:00 Outpatient R [facility] [id number] [facility] 2023-05-10 13:20:00 2023-05-10 13:36:24 Outpatient R [facility]AU [facility] [id number] [facility] 2023-05-10 13:20:00 2023-05-10 13:36:24 Office Visit Chau [facility] BUILDING 1..840.114 350.1.13.10 4.2.7.2.686 [id number] [facility] 2023-03-30 11:30:00 2023-03-30 12:01:28 Outpatient R REMY HARP [facility] [id number] [facility] 2023-03-30 11:30:00 2023-03-30 12:01:28 Office Visit Remy Harp [facility] 1..840.114 350.1.13.10 4.2.7.2.686 [id number] 044 [id number] [facility] 2023-03-30 00:00:00 2023-03-30 00:00:00 Telephone Remy Harp [facility] OFF[facility] 1..840.114 350.1.13.10 4.2.7.2.686 [id number] 044 [id number] [facility] 2023-03-26 14:00:00 2023-03-26 14:15:00 Attic Fans Mechanic Visit Lab[facility] 1.84.114 350.1.13.10 4.2.7.2.686 [id number] [facility] 2023-03-26 13:30:00 2023-03-26 13:48:23 Outpatient R REMY HARP [facility] [id number] [facility] 2023-03-26 13:30:00 2023-03-26 13:48:23 Office Visit Remy Harp [facility] 1.84.114 350.1.13.10 4.2.7.2.686 [id number] 044 [id number] [facility] 2023-03-26 00:00:00 2023-03-26 00:00:00 Pre Visit Outreach Sandra Taylor [facility] 1.84.114 350.1.13.10 4.2.7.2.686 [id number] [facility] 2023-03-24 10:30:00 2023-03-24 10:50:14 Outpatient R REMY HARP [facility] [id number] [facility] 2023-03-24 10:30:00 2023-03-24 10:50:14 Office Visit Remy Harp [facility] 1.84.114 350.1.13.10 4.2.7.2.686 [id number] [facility] 2023-03-24 00:00:00 2023-03-24 00:00:00 Refill Remy Harp [facility] 1.84.114 350.1.13.10 4.2.7.2.686 [id number] [facility] 2023-03-19 08:00:00 2023-03-19 10:31:00 Emergency X SHARIF SULTANA H[facility] ERT [id number] [facility] 2023-03-19 08:00:00 2023-03-19 10:31:00 Emergency Sharif Sultana [facility] 1.2.840.114 350.1.13.10 4.2.7.2.686 [id number] [facility] 2023-03-17 08:00:00 2023-03-17 08:00:00 Outpatient REMY ALONZO [facility] [id number] [facility] 2023-03-15 14:00:00 2023-03-15 14:00:00 Outpatient REMY ALONZO [facility] [id number] [facility] 2023-03-08 14:00:00 2023-03-08 14:00:00 Outpatient JACKIE GIBSON RUTH [facility] [id number] [facility] 2023-02-21 20:40:00 2023-02-21 21:00:00 Urgent Care Enid Mcfarland Unknown, [facility] 1.2.840.114 350.1.13.10 4.2.7.2.686 [id number] [facility] 2023-02-21 20:40:00 2023-02-21 20:40:00 Outpatient R ENID MCFARLAND [facility] [id number] [facility] 2023-02-17 00:00:00 2023-02-17 00:00:00 Telephone Jackie Mckeon [facility] MED[facility] 1.2.840.114 350.1.13.10 4.2.7.2.686 [id number] [facility] 2023-02-16 14:00:00 2023-02-16 14:19:07 Outpatient JACKIE GIBSON [facility] [id number] [facility] 2023-02-16 14:00:00 2023-02-16 14:19:07 Office Visit Jackie Mckeon [facility] 1.2840.114 350.1.13.10 4.2.7.2.686 [id number] [facility] 2023-02-16 00:00:00 2023-02-16 00:00:00 Telephone Jackie Mckeon [facility] 1.2840.114 350.1.13.10 4.2.7.2.686 [id number] [facility] 2023-01-06 11:00:00 2023-01-06 11:00:00 Outpatient R BRITTON YANEZ [facility] [id number] [facility] 2022-12-23 00:00:00 2022-12-23 00:00:00 [facility] 1.2840.114 350.1.13.10 4.2.7.2.686 [id number] [facility] 2022-12-15 13:30:00 2022-12-15 13:42:43 Outpatient R REMY HARP [facility] [id number] [facility] 2022-12-15 13:30:00 2022-12-15 13:42:43 Office Visit Remy Harp [facility] 1.2840.114 350.1.13.10 4.2.7.2.686 [id number] [facility] 2022-12-10 08:45:00 2022-12-10 09:30:00 Ancillary Visit Kaykay Merrill [facility] 1.2840.114 350.1.13.10 4.2.7.2.686 [id number] 179 [id number] [facility] 2022-12-10 08:45:00 2022-12-10 08:45:00 Outpatient R BRITTON YANEZ [facility] [id number] [facility] 2022-12-09 15:15:00 2022-12-09 16:00:00 Ancillary Visit Aurelio Abarca Michael J [facility] 1.840.114 350.1.13.10 4.2.7.2.686 [id number] 179 [id number] [facility] 2022-12-09 10:00:00 2022-12-09 10:39:25 Outpatient R BRITTON YANEZ [facility] [id number] [facility] 2022-12-09 10:00:00 2022-12-09 10:39:25 Office Visit Britton Yanez [facility] 1.84.114 350.1.13.10 4.2.7.2.686 [id number] 011 [id number] [facility] 2022-12-04 09:30:00 2022-12-04 10:24:02 Ancillary Visit Kaykay Merrill Craig L [facility] 1.840.114 350.1.13.10 4.2.7.2.686 [id number] 179 [id number] [facility] 2022-12-02 15:15:00 2022-12-02 16:00:00 Ancillary Visit Renny Merrill Craig L [facility] 1.840.114 350.1.13.10 4.2.7.2.686 [id number] [facility] 2022-11-26 00:00:00 2022-11-26 00:00:00 Case Management Sarah Troy [facility] 1.0.114 350.1.13.10 4.2.7.2.686 [id number] [facility] 2022-11-24 00:00:00 2022-11-24 00:00:00 Patient Secure Msg Jackie Mckeon [facility] MED[facility] OFFICE BUILDING 1.2840.114 350.1.13.10 4.2.7.2.686 [id number] [id number] [facility] 2022-11-24 00:00:00 2022-11-24 00:00:00 Telephone Remy Harp [facility] 1.2840.114 350.1.13.10 4.2.7.2.686 [id number] 044 [id number] [facility] 2022-11-24 00:00:00 2022-11-24 00:00:00 Telephone Jackie Mckeon [facility] MED[facility] OFFICE BUILD[facility] 1.0.114 350.1.13.10 4.2.7.2.686 [id number] 084 [id number] [facility] 2022-11-19 15:00:00 2022-11-19 15:15:00 Attic Fans Mechanic Visit Shaun [facility] Sleep Lab Alireza Shipman [facility] 1.0.114 350.1.13.10 4.2.7.2.686 [id number] [facility] 2022-11-19 15:00:00 2022-11-19 15:00:00 Outpatient R ALIREZA SHIPMAN STRAHIL [facility] [id number] [facility] 2022-11-19 13:45:00 2022-11-19 14:30:00 Ancillary Visit Sarah Troy [facility] 1.840.114 350.1.13.10 4.2.7.2.686 [id number] 179 [id number] [facility] 2022-11-19 00:00:00 2022-11-19 00:00:00 Orders Only Doctor Unassigned, [place] [facility] 1.284.114 350.1.13.10 4.2.7.2.686 [id number] [facility] 2022-11-18 09:30:00 2022-11-18 09:59:39 Ancillary Visit Renny Merrill Craig L [facility] 1.284.114 350.1.13.10 4.2.7.2.686 [id number] 179 [id number] [facility] 2022-11-13 14:30:00 2022-11-13 17:14:36 Outpatient R REMY HARP [facility] [id number] [facility] 2022-11-13 14:30:00 2022-11-13 17:14:36 Office Visit Remy Harp [facility] 1.84.114 350.1.13.10 4.2.7.2.686 [id number] 044 [id number] [facility] 2022-11-12 10:15:00 2022-11-12 10:56:23 Ancillary Visit Renny Merrill Craig L [facility] 1.284.114 350.1.13.10 4.2.7.2.686 [id number] 179 [id number] [facility] 2022-11-05 13:45:00 2022-11-05 14:32:29 Outpatient R LARISA RICHARDS [facility] [id number] [facility] 2022-11-05 13:45:00 2022-11-05 14:32:29 Ancillary Visit Charity Rodriguez Craig L [facility] 1.2840.114 350.1.13.10 4.2.7.2.686 [id number] [facility] 2022-11-04 13:30:00 2022-11-04 13:49:05 Outpatient R JACKIE MCKEON RUTH [facility] [id number] [facility] 2022-11-04 13:30:00 2022-11-04 13:49:05 Office Visit Jackie Mckeon [facility] MEDICAL OFFICE BUILDING 1.84.114 350.1.13.10 4.2.7.2.686 [id number] [id number] [facility] 2022-10-16 14:30:00 2022-10-16 14:52:34 Outpatient R REMY HARP [facility] [id number] [facility] 2022-10-16 14:30:00 2022-10-16 14:52:34 Office Visit Remy Harp [facility] 1.84.114 350.1.13.10 4.2.7.2.686 [id number] 044 [id number] [facility] 2022-10-16 00:00:00 2022-10-16 00:00:00 Orders Only Doctor Unassigned, [place] [facility] 1.840.114 350.1.13.10 4.2.7.2.686 [id number] [id number] [facility] 2022-09-29 00:00:00 2022-09-29 00:00:00 Kelvin Ely [facility] 1..114 350.1.13.10 4.2.7.2.686 [id number] 089 [id number] [facility] 2022-09-28 13:00:00 2022-09-28 13:00:00 Outpatient R BRITTON YANEZ [facility] [id number] [facility] 2022-09-15 08:30:00 2022-09-15 08:30:00 Outpatient R REMY HARP [facility] [id number] [facility] 2022-09-09 14:30:00 2022-09-09 15:03:40 Office Visit RolyRemy gottlieb [facility] 1.114 350.1.13.10 4.2.7.2.686 [id number] 044 [id number] [facility] 2022-09-09 10:15:00 2022-09-09 10:55:09 Outpatient R BRITTON YANEZ [facility] [id number] [facility] 2022-09-09 10:15:00 2022-09-09 10:55:09 Office Visit Britton Yanez [facility] 1.114 350.1.13.10 4.2.7.2.686 [id number] 011 [id number] [facility] 2022-09-03 13:00:00 2022-09-03 13:00:00 Outpatient R REMY HARP [facility] [id number] [facility] 2022-08-25 00:00:00 2022-08-25 00:00:00 Telephone Britton Yanez [facility] .114 350.1.13.10 4.2.7.2.686 [id number] [id number] [facility] 2022-08-18 00:00:00 2022-08-18 00:00:00 Telephone Britton Yanez [facility] .114 350.1.13.10 4.2.7.2.686 [id number] 011 [id number] [facility] 2022-08-17 11:30:00 2022-08-17 12:00:41 Office Visit KatiuskaRemy [facility] 1..114 350.1.13.10 4.2.7.2.686 [id number] 044 [id number] [facility] 2022-08-17 11:30:00 2022-08-17 11:30:00 Outpatient R REMY HARP [facility] [id number] [facility] 2022-08-17 00:00:00 2022-08-17 00:00:00 Telephone Rolybull Remy [facility] 1..840.114 350.1.13.10 4.2.7.2.686 [id number] 044 [id number] [facility] 2022-08-14 09:07:14 2022-08-14 23:59:00 Outpatient R BRITTON YANEZ [facility] [id number] [facility] 2022-08-14 09:07:14 2022-08-14 23:59:00 Hospital En[facility] [place] [facility] 1.840.114 350.1.13.10 4.2.7.2.686 [id number] [facility] 2022-08-14 09:00:00 2022-08-14 09:30:00 Office Visit Britton Yanez [facility] IALTY [place] [facility] 1.840.114 350.1.13.10 4.2.7.2.686 [id number] [id number] [facility] 2022-08-13 00:00:00 2022-08-13 00:00:00 Telephone Britton Yanez [facility] IALTY [place] [facility] 1.840.114 350.1.13.10 4.2.7.2.686 [id number] 011 [id number] [facility] 2022-08-13 00:00:00 2022-08-13 00:00:00 Patient Secure Msg Doctor Unassigned, [place] [facility] 1.0.114 350.1.13.10 4.2.7.2.686 [id number] 011 [id number] [facility] 2022-08-12 16:00:00 2022-08-12 16:00:00 Office Visit Britton [facility] 1.2840.114 350.1.13.10 4.2.7.2.686 [id number] 011 [id number] [facility] 2022-08-12 16:00:00 2022-08-12 15:49:06 Outpatient R RENATA BRITTON [facility] [id number] [facility] 2022-07-15 15:30:00 2022-07-15 16:01:06 Outpatient R REMY HARP [facility] [id number] [facility] 2022-07-15 15:30:00 2022-07-15 16:01:06 Office Visit Remy Harp [facility] MEDICAL OFFICE BUILDING 1.84.114 350.1.13.10 4.2.7.2.686 [id number] 044 [id number] [facility] 2022-07-15 00:00:00 2022-07-15 00:00:00 [facility] OFF[facility] BUILD[facility] 1.84.114 350.1.13.10 4.2.7.2.686 [id number] 044 [id number] [facility] 2022-07-14 13:30:00 2022-07-14 13:30:00 Outpatient R REMY HARP [facility] [id number] [facility] 2022-07-07 00:00:00 2022-07-07 00:00:00 Telephone Kai Davidson [facility] MED[facility] OFFICE BUILDING 1.84.114 350.1.13.10 4.2.7.2.686 [id number] 196 [id number] [facility] 2022-07-06 09:45:00 2022-07-06 10:00:00 Office Visit Kai Davidson [facility] 1..840.114 350.1.13.10 4.2.7.2.686 [id number] 196 [id number] [facility] 2022-07-06 09:45:00 2022-07-06 09:45:00 Outpatient R KAI DVAIDSON [facility] [id number] [facility] 2022-06-15 08:30:00 2022-06-15 08:49:58 Outpatient R REMY HARP [facility] [id number] [facility] 2022-06-15 08:30:00 2022-06-15 08:49:58 [facility] BUILD[facility] 1..840.114 350.1.13.10 4.2.7.2.686 [id number] 044 [id number] [facility] 2022-06-08 00:00:00 2022-06-08 00:00:00 Refill Joselito Beauchamp [facility] OFFICE BUILDING 1..840.114 350.1.13.10 4.2.7.2.686 [id number] 044 [id number] [facility] 2022-06-03 14:30:00 2022-06-03 15:16:01 Outpatient R LARISA RICHARDS [facility] [id number] [facility] 2022-06-03 14:30:00 2022-06-03 15:16:01 Ancillary Visit Kaykay Merrill Craig L [facility] 1..840.114 350.1.13.10 4.2.7.2.686 [id number] 179 [id number] [facility] 2022-05-27 14:30:00 2022-05-27 15:29:21 Ancillary Visit Kaykay Merrill Craig L [facility] 1.2840.114 350.1.13.10 4.2.7.2.686 [id number] [facility] 2022-05-21 08:45:00 2022-05-21 09:27:12 Ancillary Visit Garfield Larisa Lopez Alexander [facility] 1.2840.114 350.1.13.10 4.2.7.2.686 [id number] 179 [id number] [facility] 2022-05-21 00:00:00 2022-05-21 00:00:00 Orders Only Doctor Unassigned, [place] [facility] 1.2840.114 350.1.13.10 4.2.7.2.686 [id number] [facility] 2022-05-15 10:30:00 2022-05-15 11:04:40 Outpatient R REMY HARP [facility] [id number] [facility] 2022-05-15 10:30:00 2022-05-15 11:04:40 Office Visit Remy Harp [facility] 1.2.84.114 350.1.13.10 4.2.7.2.686 [id number] 044 [id number] [facility] 2022-05-14 14:30:00 2022-05-14 15:15:00 Ancillary Visit Sarah Troy Craig L [facility] 1.284.114 350.1.13.10 4.2.7.2.686 [id number] [facility] 2022-05-14 14:30:00 2022-05-14 14:30:00 Outpatient R LARISA RICHARDS [facility] [id number] [facility] 2022-05-07 14:30:00 2022-05-07 15:15:00 Ancillary Visit Sarah Troy Craig L [facility] 1..840.114 350.1.13.10 4.2.7.2.686 [id number] [facility] 2022-04-23 09:30:00 2022-04-23 10:15:00 Ancillary Visit Kaykay Merrill Craig L [facility] 1..840.114 350.1.13.10 4.2.7.2.686 [id number] [facility] 2022-04-23 00:00:00 2022-04-23 00:00:00 RefRemy Ding [facility] MEDICAL OFFICE BUILDING 1..840.114 350.1.13.10 4.2.7.2.686 [id number] 044 [id number] [facility] 2022-04-17 09:30:00 2022-04-17 09:30:00 Outpatient REMY ALNOZO [facility] [id number] [facility] 2022-04-16 09:30:00 2022-04-16 11:06:05 Outpatient LARISA DIAZ [facility] [id number] [facility] 2022-04-16 09:30:00 2022-04-16 11:06:05 Outpatient LARISA DIAZ [facility] [id number] [facility] 2022-04-16 09:30:00 2022-04-16 11:06:05 Ancillary Visit Kaykay Merrill Craig L [facility] 1.2.840.114 350.1.13.10 4.2.7.2.686 [id number] [facility] 2022-04-15 13:30:00 2022-04-15 13:57:30 Outpatient R REMY HARP [facility] [id number] [facility] 2022-04-15 13:30:00 2022-04-15 13:57:30 Office Visit Remy Harp [facility] 1.2.840.114 350.1.13.10 4.2.7.2.686 [id number] [id number] [facility] 2022-04-09 09:30:00 2022-04-09 10:15:00 Ancillary Visit Kaykay Merrill Craig L [facility] 1..840.114 350.1.13.10 4.2.7.2.686 [id number] [facility] 2022-04-02 09:30:00 2022-04-02 09:30:00 Outpatient R LARISA RICHARDS [facility] [id number] [facility] 2022-03-31 13:30:00 2022-03-31 14:00:00 Office Visit Remy Harp [facility] 1..840.114 350.1.13.10 4.2.7.2.686 [id number] 044 [id number] [facility] 2022-03-31 13:30:00 2022-03-31 13:30:00 Outpatient R REMY HARP [facility] [id number] [facility] 2022-03-31 11:30:00 2022-03-31 11:30:00 Outpatient R REMY HARP [facility] [id number] [facility] 2022-03-26 09:30:00 2022-03-26 10:22:00 Ancillary Visit Kaykay Merrill Craig L [facility] 1..840.114 350.1.13.10 4.2.7.2.686 [id number] [facility] 2022-03-24 00:00:00 2022-03-24 00:00:00 Orders Only Doctor Unassigned, [place] [facility] 1.2.840.114 350.1.13.10 4.2.7.2.686 [id number] [id number] [facility] 2022-03-19 09:30:00 2022-03-19 10:13:17 Ancillary Visit Renny Merrill Craig L [facility] NAL BUILDING 1..840.114 350.1.13.10 4.2.7.2.686 [id number] 179 [id number] [facility] 2022-03-16 09:00:00 2022-03-16 09:15:00 Attic Fans Mechanic Visit Lab, Remy Fall [facility] MEDICAL OFFICE BUILDING 1..840.114 350.1.13.10 4.2.7.2.686 [id number] [facility] 2022-03-16 08:00:00 2022-03-16 09:02:44 [facility] OFFICE BUILDING 1.2.840.114 350.1.13.10 4.2.7.2.686 [id number] [id number] [facility] 2022-03-16 08:00:00 2022-03-16 09:02:44 Outpatient REMY ALONZO [facility] [id number] [facility] 2022-03-16 09:00:00 2022-03-16 09:00:00 Outpatient REMY ALONZO [facility] [id number] [facility] 2022-03-16 08:00:00 2022-03-16 08:00:00 Outpatient REMY ALONZO [facility] [id number] [facility] 2022-03-12 09:30:00 2022-03-12 10:10:13 Outpatient LARISA DIAZ [facility] [id number] [facility] 2022-03-12 09:30:00 2022-03-12 10:10:13 Ancillary Visit Sarah Troy Craig [facility] BUILDING 1.2.840.114 350.1.13.10 4.2.7.2.686 [id number] [facility] 2022-03-05 09:30:00 2022-03-05 10:15:00 Ancillary Visit Renny Merrill Craig L [facility] 1.2.840.114 350.1.13.10 4.2.7.2.686 [id number] [facility] 2022-02-26 08:45:00 2022-02-26 09:30:00 Ancillary Visit Renny Merrill Craig [facility] BUILDING 1.2.840.114 350.1.13.10 4.2.7.2.686 [id number] [facility] 2022-02-20 08:45:00 2022-02-20 09:25:43 Outpatient LARISA DIAZ [facility] [id number] [facility] 2022-02-20 08:45:00 2022-02-20 09:25:43 Ancillary Visit Charity Rodriguez Craig [facility] 1.2.840.114 350.1.13.10 4.2.7.2.686 [id number] [facility] 2022-02-20 08:45:00 2022-02-20 08:45:00 Outpatient LARISA DIAZ [facility] [id number] [facility] 2022-02-10 00:00:00 2022-02-10 00:00:00 Telephone Valeria Philippe [facility] 1.2.840.114 350.1.13.10 4.2.7.2.686 [id number] 044 [id number] [facility] 2022-02-09 13:30:00 2022-02-09 13:54:25 Outpatient R REMY HARP [facility] [id number] [facility] 2022-02-09 13:30:00 2022-02-09 13:54:25 Office Visit RolyRemy gottlieb [facility] MEDICAL OFFICE BUILDING 1.114 350.1.13.10 4.2.7.2.686 [id number] 044 [id number] [facility] 2022-01-14 16:00:00 2022-01-14 16:15:00 Attic Fans Mechanic Visit Lab, Rosendo Cintron [facility] MEDICAL OFFICE BUILDING 1.114 350.1.13.10 4.2.7.2.686 [id number] [facility] 2022-01-14 16:00:00 2022-01-14 16:00:00 Outpatient R ABDULAZIZ [facility] [id number] [facility] 2022-01-14 10:20:00 2022-01-14 10:51:11 Outpatient R ABDULAZIZ [facility] [id number] [facility] 2022-01-14 10:20:00 2022-01-14 10:51:11 Urgent Care Abdulaziz [facility] MEDICAL OFFICE BUILDING 1.114 350.1.13.10 4.2.7.2.686 [id number] [facility] 2022-01-13 00:00:00 2022-01-13 00:00:00 Telephone Kai Davidson [facility] MEDICAL OFFICE BUILDING 1.114 350.1.13.10 4.2.7.2.686 [id number] [facility] 2022-01-13 00:00:00 2022-01-13 00:00:00 Patient Secure Msg Lety [facility] MEDICAL OFFICE BUILDING 1..840.114 350.1.13.10 4.2.7.2.686 [id number] 196 [id number] [facility] 2022-01-12 14:00:00 2022-01-12 14:15:00 Office Visit Lety [facility] MEDICAL OFFICE BUILDING 1..840.114 350.1.13.10 4.2.7.2.686 [id number] [facility] 2022-01-12 14:00:00 2022-01-12 14:00:00 Outpatient R LETY [facility] [id number] [facility] 2022-01-05 14:30:00 2022-01-05 14:54:41 Outpatient R REMY HARP [facility] [id number] [facility] 2022-01-05 14:30:00 2022-01-05 14:54:41 Office Visit Remy Harp [facility]ILD[facility] 1..840.114 350.1.13.10 4.2.7.2.686 [id number] [facility] 2021-12-31 14:44:26 2021-12-31 23:59:00 Outpatient R REMY HARP [facility] [id number] [facility] 2021-12-31 14:44:26 2021-12-31 23:59:00 Hospital Encounter Katiuska Remy [facility] 1..840.114 350.1.13.10 4.2.7.2.686 [id number] [facility] 2021-12-29 00:00:00 2021-12-29 00:00:00 Patient Secure Msg Doctor Unassigned, [place] [facility] 1.840.114 350.1.13.10 4.2.7.2.686 [id number] [facility] 2021-12-10 15:15:00 2021-12-10 16:00:00 Ancillary Visit Lindy Lopez Craig [facility] BUILDING 1.840.114 350.1.13.10 4.2.7.2.686 [id number] [facility] 2021-12-10 15:15:00 2021-12-10 15:15:00 Outpatient R LARISA RICHARDS [facility] [id number] [facility] 2021-12-10 15:15:00 2021-12-10 15:15:00 Outpatient R LARISA RICHARDS [facility] [id number] [facility] 2021-12-05 15:30:00 2021-12-05 16:06:36 Outpatient R REMY HARP [facility] [id number] [facility] 2021-12-05 15:30:00 2021-12-05 16:06:36 Office Visit Remy Harp [facility] 1.840.114 350.1.13.10 4.2.7.2.686 [id number] [facility] 2021-12-05 15:30:00 2021-12-05 15:30:00 Outpatient R REMY HARP [facility] [id number] [facility] 2021-12-04 13:00:00 2021-12-04 13:45:00 Ancillary Visit Lindy Lopez Craig [facility] 1.840.114 350.1.13.10 4.2.7.2.686 [id number] [facility] 2021-12-04 00:00:00 2021-12-04 00:00:00 [facility] 1.2840.114 350.1.13.10 4.2.7.2.686 [id number] [facility] 2021-12-01 14:30:00 2021-12-01 15:15:00 Ancillary Visit Lindy Lopez Craig L [facility] 1.2840.114 350.1.13.10 4.2.7.2.686 [id number] [facility] 2021-11-24 14:30:00 2021-11-24 15:15:00 Ancillary Visit Lindy Lopez Craig L [facility] 1.2840.114 350.1.13.10 4.2.7.2.686 [id number] [facility] 2021-11-24 00:00:00 2021-11-24 00:00:00 Orders Only Doctor Unassigned, [place] [facility] 1.2.840.114 350.1.13.10 4.2.7.2.686 [id number] [facility] 2021-11-19 00:00:00 2021-11-19 00:00:00 [facility]Joselito Russ [facility] 1.2840.114 350.1.13.10 4.2.7.2.686 [id number] [id number] [facility] 2021-11-17 08:45:00 2021-11-17 09:30:00 Ancillary Visit Lindy Lopez Craig L [facility] 1.2840.114 350.1.13.10 4.2.7.2.686 [id number] [facility] 2021-11-07 00:00:00 2021-11-07 00:00:00 Orders Only Doctor Unassigned, [place] [facility] 1..840.114 350.1.13.10 4.2.7.2.686 [id number] [facility] 2021-11-05 16:00:00 2021-11-05 16:47:07 Outpatient R REMY HARP [facility] [id number] [facility] 2021-11-05 16:00:00 2021-11-05 16:47:07 Office Visit Katiuska Remy [facility] 1.2.840.114 350.1.13.10 4.2.7.2.686 [id number] [facility] 2021-10-31 15:30:00 2021-10-31 16:04:43 Outpatient R REMY HARP [facility] [id number] [facility] 2021-10-31 15:30:00 2021-10-31 16:00:00 Office Visit Katiuska Remy [facility] 1.2.840.114 350.1.13.10 4.2.7.2.686 [id number] [facility] 2021-10-31 15:30:00 2021-10-31 15:30:00 Outpatient R REMY HARP [facility] [id number] [facility] 2021-10-29 13:00:00 2021-10-29 13:00:00 Outpatient R VALERIA PHILIPPE [facility] [id number] [facility] 2021-10-28 16:32:54 2021-10-28 23:59:00 Outpatient R REMY HARP [facility] [id number] [facility] 2021-10-28 16:30:00 2021-10-28 16:31:00 Outpatient R REMY HARP [facility] [id number] [facility] 2021-10-28 16:00:00 2021-10-28 16:30:00 Office Visit Remy Harp [facility] KAVIN?[facility] MEDICAL OFF[facility] BU[facility] 1.2.840.114 350.1.13.10 4.2.7.2.686 [id number] [facility] 2021-10-28 16:00:00 2021-10-28 16:00:00 Outpatient R REMY HARP [facility] [id number] [facility] 2021-07-30 00:00:00 2021-07-30 00:00:00 Telephone Abdulaziz [facility] KAVIN?[facility] MEDICAL OFF[facility] BUILD[facility] 1.2.840.114 350.1.13.10 4.2.7.2.686 [id number] [facility] 2021-07-25 17:48:49 2021-07-25 23:59:00 Hospital Encounter Abdulaziz [facility] 1.2.840.114 350.1.13.10 4.2.7.2.686 [id number] [facility] 2021-07-25 18:00:00 2021-07-25 18:20:00 Urgent Care Abdulaziz Dharadudley Bedolla [facility]IN[facility] 1.2.840.114 350.1.13.10 4.2.7.2.686 [id number] [facility] 2021-07-25 18:00:00 2021-07-25 18:02:39 Outpatient R MONY BEDOLLATANY [facility] [id number] [facility] 2021-07-25 15:30:00 2021-07-25 15:30:00 Outpatient R VALERIA PHILIPPE [facility] [id number] [facility] 2021-07-22 00:00:00 2021-07-22 00:00:00 Patient Secure Msg Doctor Unassigned, [place] [facility] 1.840.114 350.1.13.10 4.2.7.2.686 [id number] [facility] 2021-07-17 13:00:00 2021-07-17 13:00:00 Outpatient REFUGIO YEH [facility] [id number] [facility] 2021-07-15 19:15:00 2021-07-15 19:30:00 Laboratory Only Only, Ang Db Test Mony Bedollatany [facility] MEDICAL OFFICE BUILDING 1..840.114 350.1.13.10 4.2.7.2.686 [id number] [facility] 2021-07-15 19:20:00 2021-07-15 19:20:00 Outpatient DHARA VASQUEZ [facility] [id number] [facility] 2021-07-15 19:15:00 2021-07-15 19:15:00 Outpatient R HILL BEDOLLA [facility] [id number] [facility] 2021-07-10 10:19:00 2021-07-10 15:02:00 Emergency X HI CORONA [facility] ERT [id number] [facility] 2021-07-10 10:19:00 2021-07-10 15:02:00 Emergency Hi Corona F [facility] .840.114 350.1.13.10 4.2.7.2.686 [id number] [facility] 2021-07-10 08:30:00 2021-07-10 08:30:00 Outpatient VALERIA JOSE [facility] [id number] [facility] 2021-06-25 16:00:00 2021-06-25 16:00:00 Outpatient R COLLEENVALERIA MCNAMARA [facility] [id number] [facility] 2021-06-19 00:00:00 2021-06-19 00:00:00 Patient Secure [facility] 1.0.114 350.1.13.10 4.2.7.2.686 [id number] [facility] 2021-06-10 13:07:44 2021-06-10 13:22:44 Attic Fans Mechanic Visit [facility] Alejandra Vargas [facility] 1..114 350.1.13.10 4.2.7.2.686 [id number] [facility] 2021-06-10 12:30:00 2021-06-10 13:08:41 Outpatient R ALEJANDRA VARGAS [facility] [id number] [facility] 2021-06-10 12:19:46 2021-06-10 13:08:41 Office Visit Alejandra Vargas [facility] 1.0.114 350.1.13.10 4.2.7.2.686 [id number] [facility] 2021-06-03 00:00:00 2021-06-03 00:00:00 Orders Only Doctor Unassigned, [place] [facility] 1.0.114 350.1.13.10 4.2.7.2.686 [id number] [facility] 2021-05-27 15:45:58 2021-05-27 16:00:58 Attic Fans Mechanic Visit [facility] Alejandra [facility] [place] [facility] 1..114 350.1.13.10 4.2.7.2.686 [id number] [facility] 2021-05-27 14:30:00 2021-05-27 15:46:54 Outpatient R ALEJANDRA VARGAS [facility] [id number] [facility] 2021-05-27 14:30:00 2021-05-27 15:46:54 Outpatient R ALEJANDRA VARGAS [facility] [id number] [facility] 2021-05-27 14:08:09 2021-05-27 15:46:54 Office Visit Alejandra Vargas [facility] 1.2.840.114 350.1.13.10 4.2.7.2.686 [id number] [facility] 2021-05-22 00:00:00 2021-05-22 00:00:00 Patient Secure Msg MadrigalNitza [facility] MEDICAL OFFICE BUILDING 1.2.840.114 350.1.13.10 4.2.7.2.686 [id number] [facility] 2021-05-14 16:00:00 2021-05-14 16:17:51 Outpatient R VALERIA PHILIPPE [facility] [id number] [facility] 2021-05-14 15:52:21 2021-05-14 16:17:51 Office Visit Valeria Philippe [facility] MEDICAL OFFICE BUILDING 1.2.840.114 350.1.13.10 4.2.7.2.686 [id number] [facility] 2021-05-14 16:00:00 2021-05-14 16:00:00 Outpatient R VALERIA PHILIPPE [facility] [id number] [facility] 2021-05-13 00:06:00 2021-05-13 01:59:00 Emergency Ev Hawkins Roxanne [facility] 1.2.840.114 350.1.13.10 4.2.7.2.686 [id number] [facility] 2021-05-12 16:42:59 2021-05-12 16:47:21 Attic Fans Mechanic Visit Lab, Ang - Db [facility] Medical Office Building 1.2840.114 350.1.13.10 4.2.7.2.686 [id number] [facility] 2021-05-12 15:29:32 2021-05-12 16:41:27 Office Visit [place] [facility] Medical Office Building 1.284.114 350.1.13.10 4.2.7.2.686 [id number] [facility] 2021-05-12 15:30:00 2021-05-12 15:30:00 [id number] 2021-04-17 00:00:00 2021-04-17 00:00:00 Letter (Out) Serina Tan [facility] 1.2.84.114 350.1.13.10 4.2.7.2.686 [id number] [facility] 2021-04-16 11:21:42 2021-04-16 11:36:42 Laboratory Only Only, Ang Db Test PopChristy [facility] Medical Office Building 1.2840.114 350.1.13.10 4.2.7.2.686 [id number] [facility] 2021-04-16 11:30:00 2021-04-16 11:30:00 Outpatient R CHRISTY ALICEA [facility] [id number] [facility] 2021-04-03 00:00:00 2021-04-03 00:00:00 Telephone Judith Khoury [facility] Kavin?[facility] Medical Office Building 1.2.840.114 350.1.13.10 4.2.7.2.686 [id number] [facility] 2021-03-27 13:21:12 2021-03-27 13:36:12 Office Visit Aleksandra Gupta [facility] Kavin?[facility] Medical Office Building 1.2.840.114 350.1.13.10 4.2.7.2.686 [id number] [facility] 2021-03-27 13:30:00 2021-03-27 13:30:00 Outpatient R ALEKSANDRA GUPTA [facility] [id number] [facility] 2021-03-27 00:00:00 2021-03-27 00:00:00 Letter (Out) Larisa Richards [facility] Medical Office Building 1.2.840.114 350.1.13.10 4.2.7.2.686 [id number] [facility] 2021-03-15 00:00:00 2021-03-15 00:00:00 Patient Secure Msg Doctor Unassigned, [place] [facility] 1..840.114 350.1.13.10 4.2.7.2.686 [id number] [facility] 2021-03-14 09:13:19 2021-03-14 09:47:46 Office Visit Larisa Richards [facility] Kavin?[facility] Medical Office Building 1.2.840.114 350.1.13.10 4.2.7.2.686 [id number] [facility] 2021-03-14 09:30:00 2021-03-14 09:30:00 Outpatient R LARISA RICHARDS [facility] [id number] [facility] 2021-03-13 13:51:58 2021-03-13 15:05:53 Office Visit Valeria Philippe [facility] Office Building 1.2.840.114 350.1.13.10 4.2.7.2.686 [id number] [facility] 2021-03-13 14:00:00 2021-03-13 14:00:00 Outpatient R VALERIA PHILIPPE [facility] [id number] [facility] 2021-03-12 00:00:00 2021-03-12 00:00:00 Telephone Nitza Madrigal [facility] Kavin?[facility] Office Building 1.2.840.114 350.1.13.10 4.2.7.2.686 [id number] [id number] [facility] 2021-03-10 15:07:49 2021-03-10 23:59:00 Outpatient R GENEVA MADRIGALTHIA [facility] [id number] [facility] 2021-03-10 14:30:00 2021-03-10 14:30:00 Outpatient R GEOVANNI NITZA [facility] [id number] [facility] 2021-02-20 12:08:12 2021-02-20 13:23:48 Office Visit Valeria Philippe [facility] Office Building One 1.2.840.114 350.1.13.10 4.2.7.2.686 [id number] [facility] 2021-02-20 12:30:00 2021-02-20 12:30:00 Outpatient R VALERIA PHILIPPE [facility] [id number] [facility] 2021-02-03 10:00:00 2021-02-03 10:00:00 Outpatient R JENIFER MACDONALD [facility] [id number] [facility] 2020-12-11 00:00:00 2020-12-11 00:00:00 [facility] 1..840.114 350.1.13.10 4.2.7.2.686 [id number] [facility] 2020-12-09 11:29:46 2020-12-09 11:44:46 Attic Fans Mechanic Visit [facility] 1..840.114 350.1.13.10 4.2.7.2.686 [id number] [facility] 2020-12-09 10:00:00 2020-12-09 11:25:[address] [facility] [id number] [facility] 2020-12-09 09:36:42 2020-12-09 11:25:43 Office Visit Dodie [facility] 1..840.114 350.1.13.10 4.2.7.2.686 [id number] [facility] 2020-12-09 10:00:00 2020-12-09 10:00:00 Outpatient Oren MACDONALD JENIFER [facility] [id number] [facility] 2020-11-28 10:30:00 2020-11-28 10:30:00 Outpatient JUDITH BEAUCHAMP [facility] [id number] [facility] 2020-11-27 09:00:00 2020-11-27 09:00:00 Outpatient KERRI SIMON [facility] [id number] [facility] 2020-11-13 00:00:00 2020-11-13 00:00:00 Outpatient JUDITH BEAUCHAMP [facility] [id number] [facility] 2020-10-31 00:00:00 2020-10-31 00:00:00 Case Management [place] One 1.0.114 350.1.13.10 4.2.7.2.686 [id number] [facility] 2020-10-30 00:00:00 2020-10-30 00:00:00 Patient Secure Msg Doctor Unassigned, [place] [facility] 1.2840.114 350.1.13.10 4.2.7.2.686 [id number] [facility] 2020-10-30 00:00:00 2020-10-30 00:00:00 Patient Secure Msg Doctor Unassigned, [place] [facility] 1.20.114 350.1.13.10 4.2.7.2.686 [id number] [facility] 2020-10-29 08:15:59 2020-10-29 08:35:59 Attic Fans Mechanic Visit Pob, Adc Lab Main Valeria Philippe [facility] Building 1..114 350.1.13.10 4.2.7.2.686 [id number] [facility] 2020-10-29 08:00:00 2020-10-29 08:00:00 Outpatient R VALERIA PHILIPPE [facility] [id number] [facility] 2020-10-26 16:10:00 2020-10-26 16:10:00 Outpatient [facility] [id number] [facility] 2020-10-25 13:06:45 2020-10-25 14:06:38 Office Visit Judith Khoury [facility] Office Building One 1..114 350.1.13.10 4.2.7.2.686 [id number] [facility] 2020-10-25 13:15:00 2020-10-25 13:15:00 Outpatient R JUDITH KHOURY [facility] [id number] [facility] 2020-10-05 16:10:00 2020-10-05 16:10:00 Outpatient [facility] [id number] [facility] 2020-10-03 00:00:00 2020-10-03 00:00:00 Patient Outreach Refugio Paiz [facility] 1.114 350.1.13.10 4.2.7.2.686 [id number] [facility] 2020-06-24 13:35:47 2020-06-24 23:59:00 Hospital Encounter Judith Khoury [facility] 1.114 350.1.13.10 4.2.7.2.686 [id number] [facility] 2020-06-24 13:35:47 2020-06-24 23:59:00 Outpatient R PENGBERNARD BURKHARJEETJESSE [facility] [id number] [facility] 2020-06-20 00:00:00 2020-06-20 00:00:00 Patient Secure [facility] BU[facility] 1.114 350.1.13.10 4.2.7.2.686 [id number] [facility] 2020-06-19 00:00:00 2020-06-19 00:00:00 Outpatient Oren ELISE RITCHIE [facility] [id number] [facility] 2020-06-19 00:00:00 2020-06-19 00:00:00 Orders Only Doctor Unassigned, [place] [facility] 1.114 350.1.13.10 4.2.7.2.686 [id number] [facility] 2020-06-17 15:32:02 2020-06-17 15:47:02 Laboratory Only Only, Adc Test Britton Costello [facility] 1.2.840.114 350.1.13.10 4.2.7.2.686 [id number] [facility] 2020-06-17 15:45:00 2020-06-17 15:45:00 Outpatient R [facility] [id number] [facility] 2020-06-12 00:00:00 2020-06-12 00:00:00 Case Management Judith Khoury [facility] Office Building One 1.114 350.1.13.10 4.2.7.2.686 [id number] [facility] 2020-06-04 00:00:00 2020-06-04 00:00:00 Telephone Judith Khoury [facility] Office Building One 1.114 350.1.13.10 4.2.7.2.686 [id number] [id number] [facility] 2020-05-31 10:22:28 2020-05-31 11:58:37 [facility] 1. 350.1.13.10 4.2.7.2.686 [id number] [facility] 2020-05-31 10:40:00 2020-05-31 10:40:00 Outpatient [facility] [id number] [facility] 2020-05-30 12:28:58 2020-05-30 12:43:58 Attic Fans Mechanic Visit Pob, Adc Lab Main Judith Khoury [facility] Building 1. 350.1.13.10 4.2.7.2.686 [id number] [facility] 2020-05-30 11:26:34 2020-05-30 12:14:19 Office Visit Judith Khoury [facility] Office Building One 1.2.840.114 350.1.13.10 4.2.7.2.686 [id number] [id number] [facility] 2020-05-30 11:27:48 2020-05-30 11:47:48 Attic Fans Mechanic Visit Lab, Adc [facility] Pob Gage PengBernardcampos Gottlieb [facility] Office Building One 1.114 350.1.13.10 4.2.7.2.686 [id number] [facility] 2020-05-30 11:30:00 2020-05-30 11:30:00 Outpatient R JUDITH KHOURY [facility] [id number] [facility] 2020-05-30 00:00:00 2020-05-30 00:00:00 Orders Only Doctor Unassigned, [place] [facility] 1.0.114 350.1.13.10 4.2.7.2.686 [id number] [facility] 2020-05-30 00:00:00 2020-05-30 00:00:00 Telephone PengBernardcampos Gottlieb [facility] Office Building One ..114 350.1.13.10 4.2.7.2.686 [id number] [facility] 2020-02-02 00:00:00 2020-02-02 00:00:00 Telephone Nitza Madrigal [facility] Office Building One 1..114 350.1.13.10 4.2.7.2.686 [id number] 044 [id number] 2020-02-02 00:00:00 2020-02-02 00:00:00 Telephone Nitza aMdrigal [facility] Office Building One 1.114 350.1.13.10 4.2.7.2.686 [id number] [facility] 2020-02-01 12:53:49 2020-02-01 15:29:04 Laboratory Only Lab, [facility] Fam Pob I [facility] Office Building One 1.2840.114 350.1.13.10 4.2.7.2.686 [id number] 2020-02-01 12:53:49 2020-02-01 15:29:04 Laboratory Only Lab, [facility] Fam Pob I Noel Pruitt [facility] Office Building One 1.2840.114 350.1.13.10 4.2.7.2.686 [id number] [facility] 2020-02-01 13:40:00 2020-02-01 13:40:00 Outpatient R NOEL PRUITT [facility] [id number] [facility] 2020-02-01 00:00:00 2020-02-01 00:00:00 Letter (Out) Lab, Pcp [facility] Office Building One 1.2840.114 350.1.13.10 4.2.7.2.686 [id number] [facility] 2020-02-01 00:00:00 2020-02-01 00:00:00 Letter (Out) Lab, Pcp [facility] Office Building One 1.2840.114 350.1.13.10 4.2.7.2.686 [id number] [facility] 2020-01-28 09:24:35 2020-01-28 09:39:01 Laboratory Only Lab, [facility] Fam Pob I Nitza Madrigal [facility] Office Building One 1.2840.114 350.1.13.10 4.2.7.2.686 [id number] [facility] 2020-01-28 08:40:00 2020-01-28 08:40:00 Outpatient O NITZA MADRIGAL [facility] [id number] [facility] 2020-01-17 09:00:00 2020-01-17 09:00:00 Outpatient ROBIN SANTAMARIA [facility] [id number] [facility] 2019-11-17 09:45:00 2019-11-17 09:45:00 Outpatient ROBIN SANTAMARIA [facility] [id number] [facility] 2019-11-17 08:15:11 2019-11-17 08:30:11 Telemedici ne Visit Robin Burgess Keith [facility] Building 1.2.840.114 350.1.13.10 4.2.7.2.686 [id number] [facility] 2019-03-31 15:04:14 2019-03-31 16:28:52 Office Visit Judith Khoury [facility] Office Building One 1.2.840.114 350.1.13.10 4.2.7.2.686 [id number] [facility] 2019-03-24 00:00:00 2019-03-24 00:00:00 Telephone Judith Khoury [facility] Office Building One 1.2.840.114 350.1.13.10 4.2.7.2.686 [id number] [id number] [facility] 2019-03-15 00:00:00 2019-03-15 00:00:00 Telephone Judith Khoury [facility] Office Building One 1.2840.114 350.1.13.10 4.2.7.2.686 [id number] [facility] 2019-03-14 15:30:00 2019-03-14 23:59:00 Hospital Encounter Judith Khuory [facility] 1.2.840.114 350.1.13.10 4.2.7.2.686 [id number] [facility] 2019-03-14 14:47:21 2019-03-14 15:20:36 [facility] 1.2.840.114 350.1.13.10 4.2.7.2.686 [id number] [id number] [facility] 2019-03-14 00:00:00 2019-03-14 00:00:00 Orders Only Doctor Unassigned, [place] [facility] 1.2.840.114 350.1.13.10 4.2.7.2.686 [id number] [facility] 2018-01-25 07:47:00 2018-01-25 08:53:00 Emergency X VINCE ODOM [facility] ERT [id number] [facility] Results Test Description Test Time Test Comments Results Resul t Comments Source XR Ankle 3+ vw right 2024-12-17 6 18:50:57 XR ANKLE 3+ VW RIGHT INDICATION: ankle pain COMPARISON: None FINDINGS: Circumferential ankle soft tissue swelling. No acute fracture ordislocation. Joint spacing and alignment are well-maintained. [facility] US Abdomen limited 2024-10-17 5 22:13:18 EXAM: US ABDOMEN LIMITED HISTORY: 44 years-old Male; Provided indication: ELEVATED LFTS ABDOMEN PAIN. TECHNIQUE: Survey ultrasound imaging focused on the right upper quadrantwas performed. The main portal vein was evaluated with color Dopplerimaging. [employer]cery [employer]pper images were obtained for the record. COMPARISON: [...] sonographic palpation. SPLEEN:The spleen measures 14.0 cm. [facility] [id number] 16:41:29 MR LUMBAR SPINE WO CONTRAST HISTORY: [...] An annular fissure is againnoted at this level.[facility] POCT MOLECULAR [id number] 15:33:38* Test Item Value Reference Range Interpretation Comme [facility] POCT Molecular Strep (test c ode = 77611-2) Negative Negative Lab Interpretation (test cod e = 15095-4) Normal [facility] SARS-COV-2 ANTIGEN (BINAX NOW)2024-01-19 14:58:00* Test Item Value Reference Range Interpretation Comme [facility] POCT SARS-COV-2 ANTIGEN (test code = 61544-0) Not Detected Not Detected, See Comment On board controls acceptable with C Line (test code = 3574) Yes ANTONIO (test code = ANTONIO) accurate developme nt and interpretation of all internal controls Lab Interpretation (test code = 89225-8) Normal [facility] (TTE)2023-06-08 01:03:48* Test Item Value Reference Range Interpretation Comme nts Height (test code = 6629136017) 69 in Weight (test code = 6432297566) 266 lbs Systolic BP (test code = 8718974389) 128 mmHg Diastolic BP (test code = 7391320882) 85 mmHg Heart Rate (test code = 3938568934) 81 bpm BSA (test code = 6889121696) 2.33 m2 LVIDD (test code = 9480953704) 5.30 cm Left Ventricular End Diastolic Volume by Teichholz Method (test code = 7719087) 137.1 mL IVS (test code = 5426130670) 1.20 cm Interventricular Septum Diastolic Thickness by 2D (test code = 1888735) 1.20 cm LVPWD (test code = 9307123815) 1.01 cm PW (test code = 1112319507) 1.01 cm 0.6-1.1 EF(Teich) (test code = 3903420298) 58.00 % LVIDS (test code = 5344130459) 3.70 cm Left Ventricular End Systolic Volume by Teichholz Method (test code = 0798898) 57.6 mL FS (test code = 2556300951) 31 % EF - 2D (test code = 22441436) 58.00 % LVOT diameter (test code = 9172199216) 2.00 cm LVOT area (test code = 3258505684) 3.10 cm2 ACS (test code = 5030376015) 2.11 cm Ao root diam (test code = 3225498393) 3.40 cm Aortic root (test code = 5559104995) 3.4 cm Ao root annulus (test code = 9037496348) 3.4 cm LA size (test code = 8216678046) 4.1 cm E wave decelartion time (test code = 3428905473) 0.28 s MV Peak E Fadia (test code = 4379314673) 63.5 cm/s MV Peak A Fadia (test code = 3897144527) 58.3 cm/s E/A ratio (test code = 6458688397) 1.09 ratio MV Prop V (test code = 1967802499) 40.20 cm/s LVOT stroke volume (test code = 4896191406) 69.70 cm3 LVOT peak fadia (test code = 2920226782) 122.0 cm/s LVOT mn grad (test code = 6766325758) 2.8 mmHg AV LVOT peak gradient (test code = 1442020249) 6.0 mmHg LVOT peak VTI (test code = 0867775151) 22.3 cm LV V1 mean (test code = 7167930866) 77.40 cm/s Aortic valve mean velocity (test code = 6154807727) 100.6 cm/s Ao peak fadia (test code = 9592163312) 152.7 cm/s Ao VTI (test code = 2153694205) 28.7 cm AV area by cont VTI (test code = 6449056599) 2.4 cm2 AV area peak fadia (test code = 7181186280) 2.5 cm2 Ao max PG (test code = 7118520375) 9.30 mm[Hg] AV peak gradient (test code = 0834990049) 9.3 mmHg AV valve area (test code = 0104334288) 2.43 cm2 AV mean gradient (test code = 8018268656) 4.7 mmHg LAV(MOD-sp4) (test code = 4773730940) 27.10 mL Tapse (test code = 6687679992) 1.90 cm MR max PG (test code = 2127977005) 42.30 mm[Hg] MR max fadia (test code = 9315559458) 325.10 cm/s Mr max fadia (test code = 4169347686) 325.1 m/s TR Peak Fadia (test code = 5314817690) 202.8 cm/s Triscuspid Valve Regurgitation Peak Gradient (test code = 0225208565) 16.5 mmHg Radiology Study observation (narrative) (test code = 17597-1) ANTONIO (test code = ANTONIO) ?Left?Ventricle: Left [...] mL of Lumason ultrasound enhancing agent used. [facility] [id number] 21:06:56* Test Item Value Reference Range Interpretation Comme [facility] POCT Creatinine (test code = 8179805048) 0.9 mg/dL 0.6-1.3 Lab Interpretation (test cod e = 66530-5) Normal [facility] DallasN-TERMINAL [id number] 14:56:08* Test Item Value Reference Range Interpretation Comme [facility] NT-proBNP (test code = 62079-0) <=125 Lab Interpretation (test cod e = 56492-6) Normal [facility] DallasTROPONIN [id number] 14:22:19* Test Item Value Reference Range Interpretation Comme [facility] TROPONIN I (test code = 1798897070) 0.008 ng/mL <=0.034 ANTONIO (test code = [...] of biotin. Lab Interpretation (test code = 28041-6) Normal [facility] METABOLIC PANEL (NA, K, CL, CO2, GLUCOSE, BUN, CREATININE, CA)2023-03-19 14:11:00* Test Item Value Reference Range Interpretation Comme nts NA (test code = 0723522057) 139 mmol/L 135-145 K (test code = 2482496599) 4.6 mmol/L 3.5-5.0 CL (test code = 4227023978) 106 mmol/L 98-108 CO2 TOTAL (test code = 3465759485) 26 mmol/L 23-31 AGAP (test code = 7158104835) 7 2-16 BUN (test code = 2227541725) 13 mg/dL 7-23 GLUCOSE (test code = 4899180142) 102 mg/dL 70-110 CREATININE (test code = 2849279916) 0.92 mg/dL 0.60-1.25 CALCIUM (test code = 4885058083) 9.1 mg/dL 8.6-10.6 eGFR (test code = 4552578887) 89.4 mL/min/1.73m2 ANTONIO (test code = ANTONIO) [...] or urine or abnormalities in imaging tests). [facility] FUNCTION PANEL (81840) (ALB,T.PRO,BILI T,BU/BC,ALT,AST,ALK PHOS)2023-03-19 14:11:00* Test Item Value Reference Range Interpretation Comme nts TOTAL BILI (test code = 2636859155) 0.7 mg/dL 0.1-1.1 BILI UNCON (test code = 3498994567) 0.6 mg/dL 0.1-1.1 BILI CONJ (test code = 8319236698) 0.0 mg/dL 0.0-0.3 T PROTEIN (test code = 4425873399) 8.1 g/dL 6.3-8.2 ALBUMIN (test code = 1652277858) 4.3 g/dL 3.5-5.0 ALK PHOS (test code = 6616580630) 67 U/L 34-122 ALTv (test code = 1742-6) 43 U/L 5-50 AST(SGOT) (test code = 6301407494) 52 U/L 13-40 H Lab Interpretation (test cod e = 72198-3) Abnormal [facility] DallasLIPASE2023-09-01 14:11:00* Test Item Value Reference Range Interpretation Comme nts LIPASE (test code = 3669757607) 103 U/L 0-220 Lab Interpretation (test cod e = 06498-7) Normal [facility] DallasCB WITH [id number] 13:57:39* Test Item Value Reference Range Interpretation Comme nts WBC (test code = 6690-2) 6.24 See_Comment [Automated [employer]] The system which generated this result transmitted reference range: 4.20 - 10.70 10*3/?L. The reference range was not used to interpret this result as normal/abnormal. RBC (test code = 789-8) 5.43 See_Comment [Automated [employer]] The system which generated this result transmitted [...] g/dL 31.2-35.0 H RDW-SD (test code = 81617-6) 42.7 fL 38.5-51.6 RDW-CV (test code = 788-0) 13.4 % 12.1-15.4 PLT (test code = 777-3) 186 See_Comment [Automated messa ge] The system which generated this result transmitted reference range: 150 - 328 10*3/?L. The reference range was not used to interpret this result as normal/abnormal. MPV (test code = 61831-0) 9.1 fL 9.8-13.0 L NRBC/100 WBC (test code = 0772792561) 0.0 See_Comment [Automated Al[employer] Ju[employer] ssage] The system which generated this result transmitted reference range: 0.0 - 10.0 /100 WBCs. The reference range was not used to interpret this result as normal/abnormal. NRBC x10^3 (test code = 6498699999) See_Comment [Automated Pubstera ge] The system which generated this result transmitted reference range: 10*3/?L. The reference range was not used to interpret this result as normal/abnormal. GRAN MAT (NEUT) % (test code = 770-8) 48.6 % IMM GRAN % (test code = 3494541327) 0.20 % LYMPH % (test code = 736-9) 39.6 % MONO % (test code = 5905-5) 7.7 % EOS % (test code = 713-8) 3.4 % BASO % (test code = 706-2) 0.5 % GRAN MAT x10^3(ANC) (test code = 4364739998) 3.04 10*3/uL 1.99-6.95 IMM GRAN x10^3 (test code = 7074005422) 0.00-0.06 LYMPH x10^3 (test code = 731-0) 2.47 10*3/uL 1.09-3.23 MONO x10^3 (test code = 742-7) 0.48 10*3/uL 0.36-1.02 EOS x10^3 (test code = 711-2) 0.21 10*3/uL 0.06-0.53 BASO x10^3 (test code = 704-7) 0.03 10*3/uL 0.01-0.09 Lab Interpretation (test code = 26904-0) Abnormal [facility] MOLECULAR [id number] 02:05:42* Test Item Value Reference Range Interpretation Comme nts POCT Molecular FluA (test co de = 98549-4) Negative Negative POCT Molecular FluB (test co de = 78420-6) Negative Negative Lab Interpretation (test cod e = 02238-5) Normal [facility] MOLECULAR [id number] 01:58:33* Test Item Value Reference Range Interpretation Comme nts POCT Molecular Strep (test c ode = 07060-2) Negative Negative Lab Interpretation (test cod e = 07123-7) Normal [facility] SARS-COV-2 ANTIGEN (BINAX NOW)2023-02-22 01:56:00* Test Item Value Reference Range Interpretation Comme nts POCT SARS-COV-2 ANTIGEN (test code = 48010-8) Not Detected Not Detected On board controls acceptable with C Line (test code = 3574) Yes ANTONIO (test code = ANTONIO) accurate developme nt and interpretation of all internal controls Lab Interpretation (test code = 53961-1) Normal [facility] Notes Date/Time Note Provider Source 2025-04-25 15:34:24 Pt cancelled appt, he no longer needed appt Please close encounter Betina Rogers [facility] 2025-04-25 09:37:36 Copied from [facility] #[id number]. Topic: Appointment - Appointment Request >> Apr 25, 2025 9:35 AM Patient Escrow Representative wrote: Martinez Roberson is a 44 year old male is calling requesting a call back from clinic regarding appointment on 04.27.25 at 4:00 PM. Patient states he lost his insurance and wants to know his exact self-pay amount for his follow up visit. I notified patient of the self-pay estimated establish patient velasco of $154.50. Patient wants to confirm that velasco. Please advise Dieter Bingham [facility] 2024-10-25 08:45:00 Images from the original note were not included. Venipuncture collection performed by clean technique on the left anticubitus. Total of 1 attempts were made. Slight pressure and a bandage/dressing were applied to the site(s). The patient experienced no complications. The following specimens were processed according to instructions and sent to [facility] laboratories per lab order on 10/25/2024 : LT BLUE SST 1 RED LAV 2 PPT DK GREEN (LiHep) DK GREEN (SodH) BILL DK BLUE (K2) DK BLUE (S) ACD Blood Culture NIPT/NTD Breath kit collected and sent. [facility] 2024-10-25 08:00:00 No anemia or infection noted [facility] 2024-10-25 08:00:00 Addended by: REMY HARP on: 10/25/2024 07:41 PM Modules accepted: Orders [facility] 2024-08-06 10:25:22 Received disability form from [employer] [place] and have placed in provider's box for completion. S TRAINEE Jeannette Mcintosh [facility] 2024-08-02 11:30:55 Sent and updated [facility] 2024-08-02 10:23:53 Pt states the note he received has the year 2023 instead of 2024. Please revise and update. Please Advise. [facility] Louisa Castro [facility] 2024-06-02 14:14:29 Images from the original note were not included. Notes: 01/21/24 Last Refilled: [facility] [address] AT [place] [address] Recent Visits Date Type Provider Dept 05/31/24 Office Visit Remy Harp, DATA PROCESSING CONSULTANT [facility] 04/26/24 Office Visit Remy Harp DATA PROCESSING CONSULTANT [facility] 04/03/24 Office Visit Remy Harp, DATA PROCESSING CONSULTANT [facility] 03/24/24 Office Visit Remy Harp DATA PROCESSING CONSULTANT [facility] 02/22/24 Office Visit Remy Harp, DATA PROCESSING CONSULTANT [facility] 01/31/24 Office Visit Remy Harp DATA PROCESSING CONSULTANT [facility] 01/26/24 Office Visit Remy Harp, DATA PROCESSING CONSULTANT [facility] 01/06/24 Office Visit Valeria Philippe PA [facility] 12/17/23 Office Visit Remy Harp DATA PROCESSING CONSULTANT [facility] 11/16/23 Office Visit Remy Harp DATA PROCESSING CONSULTANT [facility] Showing recent visits within past 540 days with a meds authorizing provider and meeting all other requirements Future Appointments Date Type Provider Dept 07/03/24 Appointment Remy Harp DATA PROCESSING CONSULTANT [facility] 09/20/24 Appointment Remy Harp DATA PROCESSING CONSULTANT [facility] Showing future appointments [...] left Cardiovascular: Antilipid - HMG-CoA Reductase Inhibitors Hqkwqv0106/02/2024 12:38 PM Protocol Details AST in normal range and within 360 days ALT in normal range and within 360 days Valid encounter within last 12 months Total Cholesterol within 360 days LDL within 360 days HDL within 360 days Triglycerides within 360 days To be filled at: [facility] [address] [facility] [place] [address] [facility] 2024-04-03 11:23:18 Images from the original note were not included. Patient requesting lower dose Notes: 03/24/24 Last Refilled: [facility] [place] [id number] [address] AT [place] [address] Recent Visits Date Type Provider Dept [...] Date Type Provider Dept 04/04/24 Appointment Remy Harp FNP [facility] [...] get a 25 MG tablet Psychiatry: Antidepressants Xuwpms2404/02/2024 07:34 AM Protocol Details Manual Review: Verify no changes in dose in the last 3 months Valid encounter within last 12 months To be filled at: [facility]/pharmacy #[id number] - [place], [place] - [address] AT [facility] 2024-03-14 10:55:50 Martinez Roberson is a 43 year old male, received forms from [employer] [facility] [employer] [place] the forms will be placed in provider's box for fill out and re-fax . Kerri Carson [facility] 2024-03-02 13:45:00 Images from the original note were not included. Venipuncture collection performed by clean technique on the left anticubitus. Total of 1 attempts were made. Slight pressure and a bandage/dressing were applied to the site(s). The patient experienced no complications. The following specimens were processed according to instructions and sent to [facility] laboratories per lab order on 03/02/2024 : LT BLUE SST 1 RED LAV 2 PPT DK GREEN (LiHep) DK GREEN (SodH) BILL DK BLUE (K2) DK BLUE (S) ACD Blood Culture NIPT/NTD [facility] 2024-02-14 16:09:06 Forms pending receipt and review. Marie Ashby LVN [facility] 2024-02-12 18:36:22 Martinez Roberson is a 43 year old male , received fax from [employer] [facility] [employer] [place] this form is requesting more information from patients provider . The forms will be in the provider box. Kerri Carson [facility] 2024-02-09 10:15:00 Addended by: LAKESHIA COVARRUBIAS on: 02/11/2024 09:06 AM Modules accepted: Orders Lakeshia Covarrubias PT [facility] 2024-01-20 07:21:23 Images from the original note were not included. Requested Renewals Name from pharmacy: ATORVASTATIN 20 MG TABLET Will file in chart as: ATORVASTATIN 20 mg tablet Sig: TAKE 1 TABLET BY MOUTH EVERYDAY AT BEDTIME Disp: 90 tablet Refills: 1 Start: 01/20/2024 Class: eRX For: Mixed hyperlipidemia Last ordered: 8 months ago (05/12/2023) by RENEE Carr Last refill: 10/12/2023 Rx #: [id number] Cardiovascular: Antilipid - HMG-CoA Reductase Inhibitors Nhzxvq5501/20/2024 12:38 AM Protocol Details AST in normal range and within 360 days ALT in normal range and within 360 days Valid encounter within last 12 months Total Cholesterol within 360 days LDL within 360 days HDL within 360 days Triglycerides within 360 days To be filled at: [facility]/pharmacy #[id number] - [place], [place] - [address] AT [facility] AST(SGOT) (U/L) Date Value 05/24/2023 41 (H) ALT(SGPT) (U/L) Date Value 09/16/2018 47 ALTv (U/L) Date Value 05/24/2023 51 (H) Recent Visits Date Type Provider Dept 01/06/24 Office Visit Valeria Philippe PA [facility] 12/17/23 Office Visit KatiuskaEugeniaie, DATA PROCESSING CONSULTANT [facility] 11/16/23 Office Visit KatiuskaEugeniaie, DATA PROCESSING CONSULTANT [facility] 05/24/23 Office Visit Remy Harp, DATA PROCESSING CONSULTANT [facility] 03/30/23 Office Visit Katiuska Remy, DATA PROCESSING CONSULTANT [facility] 03/26/23 Office Visit Katiuska Remy, DATA PROCESSING CONSULTANT [facility] 03/24/23 Office Visit Remy Harp, DATA PROCESSING CONSULTANT [facility] 12/15/22 Office Visit Katiuska Remy, DATA PROCESSING CONSULTANT [facility] 11/13/22 Office Visit Katiuska Remy, DATA PROCESSING CONSULTANT [facility] 10/16/22 Office Visit Remy Harp, DATA PROCESSING CONSULTANT [facility] Showing recent visits within past 540 days with a meds authorizing provider and meeting all other requirements Future Appointments Date Type Provider Dept 01/24/24 Appointment Katiuska Remy, DATA PROCESSING CONSULTANT [facility] Showing future appointments within next 150 days with a meds authorizing provider and meeting all other requirements T [facility] [employer] [facility] 2024-01-17 09:17:28 NEXT APPT With Family Medicine (Katiuska Brown, RENEE) 01/18/2024 at 3:30 PM T [facility] 2024-01-06 07:58:35 Medical Request has been faxed to HIM. Confirmation received. Scanned and uploaded to patients chart. AT Felicity Rodríguez [facility] [employer] 2023-12-31 10:29:18 Please inform the patient that there is a lot to wait till Remy Harp is available to address it, she is currently out of office. Not sure what her return date is. Thank you -FAMILY MEDICINE STAFF [facility] 2023-12-30 09:41:40 Patient has been scheduled Kyra Disla [facility] 2023-12-29 11:05:13 Please schedule patient for office visit. Provider does not do telephone encounters [facility] 2023-12-29 10:55:47 Martinez Roberson is a 43 year old male Pt calling in [employer] for sooner appt, preferably with Mrs. Remy harp to refill out paperwork for pt's job. Pt is stating he can even do a phone visit and he is going to either go up to the clinic and drop off the forms or upload them on [employer] as soon as he can so we can get the forms started. Please advise. [phone] (home) Brynn Bailey [facility] 2023-12-23 07:17:35 Please review and fill if appropriate. Last Refilled: Disp Refills Start End MABLE meloxicam (MOBIC) 15 mg tablet 42 tablet 0 11/16/2023 -- No Sig: Take 1 tablet by mouth in the morning. Sent to pharmacy as: meloxicam 15 mg tablet Class: eRX Route: Oral Order: [id number] Date/Time Signed: 11/16/2023 13:53 E-Prescribing Status: Receipt [...] Type Provider Dept 12/17/23 Office Visit Remy Harp, DATA PROCESSING CONSULTANT [facility] 11/16/23 Office Visit Remy Harp, DATA PROCESSING CONSULTANT [facility] 05/24/23 Office Visit Remy Harp, DATA PROCESSING CONSULTANT [facility] 03/30/23 Office Visit Remy Harp, DATA PROCESSING CONSULTANT [facility] 03/26/23 Office Visit Remy Harp, DATA PROCESSING CONSULTANT [facility] 03/24/23 Office Visit Remy Harp, DATA PROCESSING CONSULTANT [facility] 12/15/22 Office Visit Remy Harp, DATA PROCESSING CONSULTANT [facility] 11/13/22 Office Visit Remy Harp DATA PROCESSING CONSULTANT [facility] 10/16/22 Office Visit Remy Harp, DATA PROCESSING CONSULTANT [facility] 09/09/22 Office Visit Remy Harp DATA PROCESSING CONSULTANT [facility] Showing recent visits within past 540 days with a meds authorizing provider and meeting all other requirements Future Appointments Date Type Provider Dept 01/18/24 Appointment Remy Harp, DATA PROCESSING CONSULTANT [facility] Showing future appointments within next 150 days with a meds authorizing provider and meeting all other requirements Romana Hinojosa RN [facility] 2023-07-08 09:01:21 Left voicemail to patient to schedule follow up for back pain. S TRAINEE Fernando Chapman MA [facility] 2023-03-30 13:05:27 Formatting of this n ote might be different from the original. Called patient per Remy Harp RESIDENTIAL PROGRAM DIRECTOR to notify if he needs additional days off he will need to request those days from [facility]. Patient has an appointment there today at 2:00pm. Patient verbalized understanding. [facility] 2023-03-26 14:00:00 Formatting of this n ote is different from the original. Images from the original note were not included. Venipuncture collection performed by clean technique on the left anticubitus. Total of 1 attempts were made. Slight pressure and a bandage/dressing were applied to the site(s). The patient experienced no complications. The following specimens were processed according to instructions and sent to [facility] laboratories per lab order on 03/26/2023 : LT BLUE SST 2 RED LAV PPT DK GREEN (LiHep) DK GREEN (SodH) BILL DK BLUE (K2) DK BLUE (S) ACD Blood Culture NIPT/NTD [facility] 2023-03-26 09:59:53 Formatting of this n ote might be different from the original. [employer] and Care Everywhere searched for patient records.Information reconciled into the patients chart. [employer] Message sent to patient with open care gaps. [facility] 2023-03-24 12:30:06 Formatting of this n ote [...] last 12 months To be filled at: [facility]/pharmacy #[id number] - [place], [place] - [facility] [address] AT [facility] [address] Recent Visits Date Type Provider Dept 12/15/22 Office Visit Remy Harp, DATA PROCESSING CONSULTANT [facility] 11/13/22 Office Visit Remy Harp, DATA PROCESSING CONSULTANT [facility] 10/16/22 Office Visit Remy Harp, DATA PROCESSING CONSULTANT [facility] 09/09/22 Office Visit Remy Harp, DATA PROCESSING CONSULTANT [facility] 08/17/22 Office Visit Remy Harp FNP [facility] 07/15/22 Office Visit Remy Harp, DATA PROCESSING CONSULTANT [facility] 06/15/22 Office Visit Remy Harp, DATA PROCESSING CONSULTANT [facility] 05/15/22 Office Visit Remy Harp, DATA PROCESSING CONSULTANT [facility] 04/15/22 Office Visit Remy Harp, DATA PROCESSING CONSULTANT [facility] 03/31/22 Office Visit Remy Harp, DATA PROCESSING CONSULTANT [facility] Showing recent visits [...] authorizing provider and meeting all other requirements [facility] 2023-03-19 10:30:50 Formatting of this n ote [...] with steady gait, in no apparent distress, [facility] 2023-03-19 07:57:16 Formatting of this n ote [...] for COVID last week. Edith Shelby RN [facility] 2023-03-19 07:52:00 Formatting of this n ote is different from the original. [facility] Emergency Department Note Patient Name: Martinez Roberson Date of : 1980 42 year old male Treatment Room: [facility] FT03/[id number] Primary Care Physician: Katiuska Brown Patient Escorted [...] by Resident: Austin Ray MD., have reviewed this study and agree [...] 0.01 - 0.09 10*3/uL HEPATIC FUNCTION PANEL (14906) (ALB,T.PRO,BILI T,BU/BC,ALT,AST,ALK PHOS) - Abnormal TOTAL BILI [...] GLUCOSE, BUN, CREATININE, CA) HEPATIC FUNCTION PANEL (89286) (ALB,T.PRO,BILI T,BU/BC,ALT,AST,ALK PHOS) LIPASE TROPONIN I N-TERMINAL PRO-BNP LAB ONLY COVID INTERPRETATION Orders Placed This Encounter Medications acetaminophen (TYLENOL) tablet 650 mg First Provider Eval: ED Events Date/Time Event User Comments 03/19/23810 Medical Screening Begins ZEB SULTANA DO -- [...] ID #[id number] Sharif Sultana DO 03/19/23 1014 [facility] EMERGENCY PHYSICIAN STAFF [facility] 2023-02-17 10:37:53 Formatting of this n ote might be different from the original. A user error has taken place: encounter opened in error, closed for administrative reasons. [facility] 2023-02-16 15:04:13 Formatting of this n ote might be different from the original. Images from the original note were not included. Jackie Mckeon FNP Abrego, Stephanie, MA; P Pulmonary Nurse Supplies Rx: nasal pillow mask, heated tubing APAP therapy pressure settings 5-63bpS2A with EPR:3cmH2O and heated humidification with choice mask. DME : Margi Roberson 1980 [id number] Received CPAP supply refill request from Jackie Mckeon FNP. Last office visit 02/16/23 Follow Up visit - 02/18/24 Last DME sent - [facility]24[facility] Berkley Schaefer RN [facility]
--- NOTE | 2025-05-07 18:24 | ER ---
Nurse's Notes [facility] Name: Sumit Roberson Age: 44 yrs Sex: Male : 1980 Arrival Date: 05/07/2025 Time: 16:31 Bed IW10 Private MD: Diagnosis: Assessment: 05/07 17:32 Reassessment: WAS ADVISED THAT PT LEFT ER PRIOR TO BEING SEEN. ED Course: 16:33 Patient arrived in ED. im 16:50 Roddy Grubbs FNP-C is PHCP. dr5 16:50 Airam Prescott MD is Attending Physician. dr5 Administered Medications: No medications were administered Outcome: 17:39 Eloped from waiting room, before seeing physician Time discovered patient gone: April 2024 at 17:32 17:39 unknown hb 18:24 Patient left the ED. Signatures: Sera Bowens RN RN Danielle Boggs im Roddy Grubbs FNP-C DATA VIRTUALIZATION CONSULTANT-Cdr5 Corrections: (The following items were deleted from the chart) 18:23 17:01 Reassessment: WAS ADVISED THAT PT LEFT ER PRIOR TO BEING SEEN hb
== END 2025-05-07 18:24 | disposition left against medical advice (07) ==
LOC: ER 16:31
DX: Z02.9 Encounter for administrative examinations, unspecified (principal)